=== PATIENT | male | born 1945 | race Caucasian/White ===

== ENCOUNTER 2022-10-09 09:27 | Outpatient (OUT) | payer MEDICARE, SELFPAY ==
[2022-10-09 10:17] LABS: Basophils Absolute Auto 0.1 10^3/uL (0.0-0.1); Basophils Percent Auto 0.8 % (0.2-2.0); Eosinophils Absolute Auto 0.3 10^3/uL (0.0-0.7); Eosinophils Percent Auto 3.5 % (0.9-7.0); Hematocrit 45.7 % (42.0-54.0); Hemoglobin 14.6 g/dL (14.0-18.0); Immature Granulocytes Abs Auto 0.03 10^3/uL (0.00-0.03); Immature Granulocytes Pct Auto 0.4 % (0.0-0.5); Lymphocytes Absolute Auto 1.5 10^3/uL (1.2-3.8); Lymphocytes Percent Auto 18.6 % (20.5-60.0); Mean Corpuscular HGB Conc 31.9 g/dL (29.9-35.2); Mean Corpuscular Volume 90.7 fL (80.0-94.0); Mean Platelet Volume 9.6 fL (9.5-13.5); Monocytes Absolute Auto 0.9 10^3/uL (0.3-0.8); Monocytes Percent Auto 11.6 % (1.7-12.0); Neutrophils Absolute Auto 5.1 10^3/uL (1.4-6.5); Neutrophils Percent Auto 65.1 % (43.0-75.0); Platelet Count 187 10^3/uL (150-450); Red Blood Count 5.04 10^6/uL (4.70-6.10); Red Cell Distribution Width 13.4 % (11.0-15.0); White Blood Count 7.8 10^3/uL (4.0-11.0)
[2022-10-09 10:41] LABS: Estimated Average Glucose 117 mg/dL; Glycohemoglobin A1C 5.7 % (4.5-6.2)
[2022-10-09 10:45] LABS: Alanine Aminotransferase 16 U/L (16-63); Albumin Globulin Ratio 0.7; Albumin Level 2.9 g/dL (3.4-5.0); Alkaline Phosphatase 99 U/L (46-116); Anion Gap 10.7; Aspartate Amino Transferase 14 U/L (15-37); BUN Creatinine Ratio 15.3; Bilirubin Total 0.5 mg/dL (0.2-1.0); Calcium 8.6 mg/dL (8.5-10.1); Carbon Dioxide 26.5 mmol/L (21.0-32.0); Chloride 104 mmol/L (98-107); Chol HDL Ratio 2.6; Cholesterol 101 mg/dL (<=200); Estimated GFR (African America >60 (>=60); Estimated GFR (Non-African Ame >60 (>=60); Free T3 2.16 pg/mL (2.18-3.98); Globulin 4.1 g/dL; Glucose 99 mg/dL (74-106); HDL Cholesterol 39 mg/dL (40-60); Potassium 4.2 mmol/L (3.5-5.1); Sodium 137 mmol/L (136-145); Thyroid Stimulating Hormone 1.943 uIU/mL (0.358-3.740); Triglycerides 127 mg/dL (<=150); Uric Acid 5.6 mg/dL (3.5-7.2); VLDL CHOLESTEROL 25.4 mg/dL
[2022-10-09 11:13] LABS: Prostate Specific Antigen Scrn 3.43 ng/mL (<=4.00)
== END 2022-10-09 09:28 | disposition home or self-care (01) ==
PROVIDERS: PCP Family Medicine; Visit Provider Family Medicine
DX: I25.10 Atherosclerotic heart disease of native coronary artery without angina pectoris (principal); E78.5 Hyperlipidemia, unspecified; I10 Essential (primary) hypertension; E11.9 Type 2 diabetes mellitus without complications; R73.09 Other abnormal glucose; Z12.12 Encounter for screening for malignant neoplasm of rectum; Z12.5 Encounter for screening for malignant neoplasm of prostate
CPT/HCPCS: 36415; 80053; 80061; 83036; 84436; 84443; 84481; 84550; 85025; G0103

== ENCOUNTER 2023-04-29 09:30 | Emergency (ER) | payer MEDICARE, SELFPAY ==
[2023-04-29 09:40] VITALS: BP 134/71; PULSE 74; RESP 18; TEMP 36.8; O2SAT 98; BMI 29.1
--- NOTE | 2023-04-29 09:50 | XR_ITS ---
The [address] [address] Patient Name: ANGELLA JOHNSON MRN: [id number] date: 1945 Sex: M Assigned Patient Location: ER Current Patient Location: ER Accession/Order Number: [id number] Exam Date: 04/29/2023 09:58 Report Date: 04/29/2023 11:38 At the request of: EDIS SINGH Procedure: XR hip RT 2V w/ pelvis PROCEDURE: XR hip RT 2V w/ pelvis HISTORY: right hip pain , acute; no known injury COMPARISON: XR hips bilateral 08/03/2018, CT abdomen pelvis 01/31/2021 FINDINGS: BONES:Bilateral hip replacements without evidence of hardware fracture or loosening. No bone fracture or dislocation. SOFT TISSUES:Exuberant bone formation within the soft tissues extending from left greater trochanter to near the superior aspect of the acetabulum. EFFUSION:None visible. OTHER: Negative. XR/XR hip RT 2V w/ pelvis IMPRESSION: 1. Bilateral hip replacements without evidence of hardware failure. 2. No appreciable acute abnormality. 3. 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 It is noted that the patient describes right hip pain. Electronically authenticated by: SIVAN MOTT Date: 04/29/2023 11:38
[2023-04-29 11:34] VITALS: BP 128/76; PULSE 78; RESP 18; O2SAT 98
--- NOTE | 2023-04-29 12:07 | ED_ITS ---
HPI - Extremity Problem General Chief complaint: Extremity Problem, Nontraumatic Stated complaint: R HIP PAIN Time Seen by Provider: 04/29/23 09:40 Source: patient Mode of arrival: walk-in Limitations: no limitations History of Present Illness HPI Narrative: The patient developed pain in the right hip 3 days ago. No associated injury or activity to elicit this pain. He previously had hip surgery at [facility] and when he contacted them about his pain he was told to come to the emergency department to get x-rays of the right hip. He localizes the pain to the posterior right hip into the posterior pelvis along the mid and lateral right buttock. He took tylenol for pain Related Data Previous Rx's ?Medication ?Instructions ?Recorded methylprednisolone 4 mg tablets in 4 mg PO DAILY #21 ea 04/29/23 a dose pack (Medrol (Arturo)) Allergies Allergy/AdvReac Type Severity Reaction Status Date / Time No Known Drug Allergies Allergy Verified 04/29/23 09:40 Exam Narrative Exam Narrative: Nurses notes and vital signs reviewed and patient is not hypoxic. Afebrile General: Well-appearing and in no apparent distress. Skin: Warm, dry, no pallor noted. No rash To the lower back or right buttock. Eye: Pupils are equal, round and EOMI. No scleral icterus. Ears, Nose, Mouth, and Throat: Oral mucosa is moist Cardiovascular: Regular Rate and Rhythm without murmur, gallop or rub. Respiratory: No accessory muscle use or respiratory distress. Lungs are clear to auscultation, no wheezing, rales or rhonchi Back: No midline thoracic or lumbar vertebral tenderness. No CVA tenderness. He has tenderness along the posterior bony pelvis and into the soft tissue of the mid right buttock laterally Musculoskeletal: normal ROM, no calf or popliteal tenderness, no lower extremity edema/swelling Neurological: A&O x4. No cranial nerve dysfunction observed. No truncal ataxia. Moves all extremities. Sensation intact. Psychiatric: Cooperative and interactive. Normal mood and affect. Constitutional Vital Signs, click to edit/add: Last Vital Signs Temp 98.2 F 04/29/23 09:40 Pulse 78 04/29/23 11:34 Resp 18 04/29/23 11:34 BP 128/76 04/29/23 11:34 Pulse Ox 98 04/29/23 11:34 O2 Del Method Room Air 04/29/23 09:40 Course Vital Signs Vital signs: Vital Signs Temperature 98.2 F 04/29/23 09:40 Pulse Rate 74 04/29/23 09:40 Respiratory Rate 18 04/29/23 09:40 Blood Pressure 134/71 04/29/23 09:40 Pulse Oximetry 98 04/29/23 09:40 Oxygen Delivery Method Room Air 04/29/23 09:40 Temperature 98.2 F 04/29/23 09:40 Pulse Rate 78 04/29/23 11:34 Respiratory Rate 18 04/29/23 11:34 Blood Pressure 128/76 04/29/23 11:34 Pulse Oximetry 98 04/29/23 11:34 Oxygen Delivery Method Room Air 04/29/23 09:40 MDM - Extremity (Nontraumatic) MDM Narrative Medical decision making narrative: Patient sent for x-rays of the right Hip and pelvis. No evidence of Hardware failure or appreciable acute bony abnormality. He was informed of results and discharged home with prescription for medrol dose arturo. He will continue to take Tylenol for pain. Imaging Data xr hip & pelvis: Radiologist's impression: ITS Impressions Hip/Pelvis X-Ray 04/29/23 09:50 IMPRESSION: 1. Bilateral hip replacements without evidence of hardware failure. 2. No appreciable acute abnormality. 3. 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 It is noted that the patient describes right hip pain. Electronically authenticated by: SIVAN MOTT Date: 04/29/2023 11:38 Discharge Plan Discharge Stand Alone Forms: Portal Instructions Chief Complaint: Extremity Problem, Nontraumatic Clinical Impression: Acute pain of right hip Patient Disposition: Home, Self-Care Time of Disposition Decision: 12:16 Prescriptions / Home Meds: New methylprednisolone [Medrol (Arturo)] 4 mg tablets,dose pack 4 mg PO DAILY Qty: 21 0RF Rx Instructions: follow dosing directions of the package Print Language: Macedonian Instructions: Hip Pain (ED) Referrals: Archie Lou MD [Primary Care Provider] - 1 week
[2023-04-29] MEDS: METHYLPREDNISOLONE SOD SUCC PF 125 MG/2 ML VIAL IM (12:25)
== END 2023-04-29 12:31 | disposition home or self-care (01) ==
PROVIDERS: Emergency Provider Emergency Medicine; PCP Family Medicine
DX: M25.551 Pain in right hip (principal)
CPT/HCPCS: 73502; 96372; 99284; J2930

== ENCOUNTER 2023-06-15 15:22 | Outpatient (OUT) | payer MEDICARE, SELFPAY ==
--- NOTE | 2023-06-15 15:36 | US_ITS ---
The [address] [address] Patient Name: ANGELLA JOHNSON MRN: [id number] date: 1945 Sex: M Assigned Patient Location: US Current Patient Location: Accession/Order Number: [id number] Exam Date: 06/15/2023 16:05 Report Date: 06/16/2023 07:09 At the request of: ACE ABBOTT Procedure: US venous doppler LE BI EXAMINATION: US venous doppler LE BI HISTORY: Edema R60.9 COMPARISON: No relevant comparison available. FINDINGS: REGION: Bilateral lower extremities THROMBI: None. COMPRESSIBILITY: Normal compressibility. FLOW: Normal waveform and antegrade flow between 5 and 20 cm/s. OTHER: Subcutaneous edema within calf soft tissues bilaterally. US/US venous doppler LE BI IMPRESSION: 1. No deep vein thrombus within the right or left lower extremity. Electronically authenticated by: SIVAN MOTT Date: 06/16/2023 07:09
== END 2023-06-15 15:23 | disposition home or self-care (01) ==
LOC: US 15:29
PROVIDERS: PCP Family Medicine; Visit Provider Family Medicine
DX: I87.2 Venous insufficiency (chronic) (peripheral) (principal); R06.02 Shortness of breath
CPT/HCPCS: 93970

== ENCOUNTER 2023-06-18 10:30 | Outpatient (OUT) | payer MEDICARE, SELFPAY ==
--- OUTSIDE RECORDS SUMMARY | 2023-06-18 10:33 | XMS_ITS | CCD ---
Author Organization [facility] Care Team Providers Care Sensitometrist Name Role Phone Ace Abbott Unavailable Unavailable Unavailable MD Ace Abbott Primary Care Provider DO Soham Cash Jr Attending Provider DO Soham Cash Jr Admit Provider MD Antonieta Combs Other Provider MD Parminder Arredondo Other Provider MD Horace Palafox Admit Provider MD Horace Palafox Attending Provider LIANG Castro Other Provider Unavailable LIANG Nguyen Other Provider Unavailable LIANG Quinn Other Provider Unavailable LIANG Joseph Other Provider Unavailable LIANG Payne Other Provider Unavailable LIANG Wign Other Provider Unavailable LIANG Jerez Other Provider Unavailable MD Mary Carmen Dickinson Other Provider MD Heriberto De Anda Other Provider CASIMIRO Horn Other Provider DO Chioma Portillo Other Provider MD Mario Loredo Other Provider DO Dereck Burns Other Provider MD Mikael Bush Other Provider MD Debo Argueta Other Provider MD Robbie Whitmore Other Provider Unavailable Pb, ANP-BC Jackelyn Other Provider MD Pramod Paulson Other Provider MD Chuck Tarango Other Provider MD Darren Woods Other Provider MD Clover Banerjee Other Provider DO Maycol Cristina Other Provider Unavailable MD Sha Clayton Other Provider MD Esme Turpin Other Provider MD Lexa Neal Other Provider MD Julio Shoemaker Other Provider [place] BILINGUAL TEACHER ASSISTANT-Lidia White Other Provider [phone] MD Thai Boyd Other Provider MD Serge Gonsalez Other Provider MD Aris Cantu Other Provider Unavailable MD Ayah Gaitan Other Provider Unavailable MD Markus Bailey Other Provider MD Dalton Whelan Other Provider DO Marjan Tyson Other Provider MD Rogers Kennedy Other Provider DO David Rizzo R Other Provider DO Luiz Slaughter M Other Provider CASIMIRO Marie Other Provider Sharri, RN Zunilda Other Provider Unavailable MD Ace Abbott Primary Care Provider DO Soham Cash Jr Attending Provider MD Delvin Rodriguez Attending Provider [phone] MD Ace Abbott Primary Care Provider DO Soham Cash Jr Attending Provider Ace Abbott Primary Care Physician MD Ace Abbott Primary Care Provider [phone] DO Soham Cash Jr Attending Provider DR ACE MCCORMACK Procedure Practitioner Unavail able HOY ., DR BELLO Consulting Unavailable HOY ., DR BELLO Attending Unavailable HOY ., DR BELLO Admitting Unavailable HOY ., DR BELLO Primary Care Unavailable MEAD ., DR MELÉNDEZ Consulting Unavailable GIDEON ., FARHANA Consulting Unavailable VELEZ, PACO Consulting Unavailable HOY ., DR BELLO Consulting Unavailable HOY ., DR BELLO Primary Care Unavailable HOY ., DR BELLO Attending Unavailable HOY ., DR BELLO Admitting Unavailable HOY ., DR BELLO Consulting Unavailable STEPANIC, DR CAPONE Primary Care Unavailable HOY ., DR BELLO Attending Unavailable HOY ., DR BELLO Admitting Unavailable HOY ., DR BELLO Consulting Unavailable STEPANIC, DR CAPONE Primary Care Unavailable HOY ., DR BELLO Attending Unavailable HOY ., DR BELLO Admitting Unavailable HOY ., DR BELLO Consulting Unavailable STEPANIC, DR CAPONE Primary Care Unavailable HOY ., DR BELLO Attending Unavailable HOY ., DR BELLO Admitting Unavailable HOY ., DR BELLO Consulting Unavailable STEPANIC, DR CAPONE Primary Care Unavailable HOY ., DR BELLO Attending Unavailable HOY ., DR BELLO Admitting Unavailable MISC, DR KRAUS Consulting Unavailable LISAANIC, DR CAPONE Primary Care Unavailable MISC, DR KRAUS Attending Unavailable MISC, DR KRAUS Admitting Unavailable HOY ., DR BELLO Consulting Unavailable STEPANIC, DR CAPONE Primary Care Unavailable HOY ., DR BELLO Attending Unavailable HOY ., DR BELLO Admitting Unavailable VALENCIA ., MR ANNA Consulting Unavailable HOY ., DR BELLO Primary Care Unavailable VALENCIA ., MR ANNA Attending Unavailable VALENCIA ., MR ANNA Admitting Unavailable ZIEBER, DR SIVAN Morton Consulting Unavailable HOY ., DR BELLO Primary Care Unavailable RODRIGUEZ, DR DELVIN Colon Attending Unavailable RODRIGUEZ, DR DELVIN Colon Admitting Unavailable RODRIGUEZ, DR DELVIN Colon Consulting Unavailable SCAR ., DR BELLO Consulting Unavailable HOY ., DR BELLO Primary Care Unavailable VALENCIA ., MR ANNA Attending Unavailable VALENCIA ., MR ANNA Admitting Unavailable MD Ace Abbott Primary Care Provider [phone] MD Horace Palafox Admit Provider MD Horace Palafox Attending Provider LIANG Castro Other Provider Unavailable LIANG Nguyen Other Provider Unavailable LIANG Quinn Other Provider Unavailable LIANG Joseph Other Provider Unavailable LIANG Payne Other Provider Unavailable LIANG Wing Other Provider Unavailable MD Mary Carmen Dickinson Other Provider MD Heriberto De Anda Other Provider CASIMIRO Horn Other Provider DO Chioma Portillo Other Provider MD Mario Loredo Other Provider DO Dereck Burns Other Provider [phone] MD Mikael Bush Other Provider MD Debo Argueta Other Provider Pb, ANP-BC Jackelyn Other Provider MD Pramod Paulson Other Provider [phone] MD Chuck Tarango Other Provider MD Darren Woods Other Provider MD Clover Banerjee Other Provider DO Maycol Cristina Other Provider [phone] MD Esme Turpin Other Provider MD Julio Shoemaker Other Provider MARIBELL Callaway-Lidia White Other Provider [phone] MD Thai Boyd Other Provider MD Serge Gonsalez Other Provider MD Markus Bailey Other Provider DO Marjan Tyson Other Provider Matthias, DO David R Other Provider DO Luiz Slaughter Other Provider CASIMIRO Marie Other Provider DO Constantino Salas Other Provider MD Anshu Jennings Other Provider CASIMIRO Lozada Other Provider [phone] LIANG Harrell Other Provider Unavailable DO Anna Navarro Emergency Provider MD Anshu Martinez Admit Provider MD Anshu Jennings Attending Provider DO Anna Navarro Emergency Provider MD Anshu Martinez Admit Provider MD Anshu Jennings Attending Provider MD Delvin Rodriguez Other Provider LIANG Morales Other Provider Unavailable DO Yasmine Ruelas Other Provider MD Rubén Graham Other Provider MD Parminder Arredondo Other Provider MD Pino Dunbar Other Provider MD Harsh Wren Other Provider CASIMIRO Tovar Other Provider MD Milana Kilgore Other Provider MD Nat Arce Other Provider MD Ranjeet Lozano Other Provider Romelia [facility] Villa Other Provider MD Erin Ordonez Other Provider MD Jigar Church Other Provider Soham Cash Jr Admitting Unavailable Soham Cash Jr Attending Unavailable Ace Abbott Primary Care Unavailable Delvin Rodriguez Consulting Unavailable Daromar, Obaydah M Attending Unavailable Daromar, Obaydah M Admitting Unavailable Ace Abbott M Primary Care Unavailable Brisa Morales Consulting Unavailable Yasmine Ruelas Consulting Unavailable Rubén Graham Consulting Unavailable Parminder Arredondo Consulting Unavail able Pino Dunbar Consulting Unavailable Harsh Wren Consulting Unavailab Yazmin Culver Consulting Unavailable Milana Kilgore Consulting Unavailable Nat Arce Consulting Unavailab Ranjeet Ricks Consulting Unavailable Sherley León Consulting Unavailable Erin Ordonez Consulting Unavailable Ranjit Imad Consulting Unavailable Horace Palafox Admitting Unavailable Horace Palafox Attending Unavailable Ace Abbott M Primary Care Unavailable Mariana Castro Consulting Unavailable Nona Nguyen Consulting Unavailable Elma Quinn Consulting Unavailable Sandra Joseph Consulting Unavailable Chanelle Payne Consulting Unavailable Ruthie Wing Consulting Unavailable Mary Carmen Dickinson Consulting Unavailable Heriberto De Anda Consulting Unavailable Philly Horn Consulting Unavailable Chioma Portillo Consulting Unavailable Mario Loredo Consulting Unavailable Dereck Burns Consulting UnavailMikael Richmond Consulting Unavailable Debo Argueta Consulting Unavailable Jackelyn Ambriz Consulting Unavailable Pramod Paulson Consulting Unavailable Chuck Tarango Consulting Unavailable Darren Woods Consulting Unavailable Clover Banerjee Consulting Unavailable Maycol Cristina Consulting Unavailable Esme Turpin Consulting Unavailable Julio Shoemaker Consulting Unavailable Farhana Callaway Consulting Unavailable Thai Boyd Consulting Unavailab Serge Hatfield Consulting Unavailable Markus Bailey Consulting Unavailable Marjan Tyson Consulting Unavailable David Rizzo Consulting Unavailable Luiz Slaughter Consulting Unavailable Marguerite Marie Consulting Unavailable Constantino Salas Consulting Unavailable Daromar, Obaydah M Consulting Unavailable Bethanie Lozada Consulting Unavailable Zunilda Harrell Consulting Unavailable Soham Cash Jr Attending Unavailable Soham Cash Jr Admitting Unavailable Ace Abbott M Primary Care Unavailable Soham Cash Jr Attending Unavailable Soham Cash Jr Admitting Unavailable Ace Abbott Primary Care Unavailable Ace Abbott Primary Care Unavailable Delvin Rodriguez Admitting Unavailable Delvin Rodriguez Attending Unavailable Soham Cash Jr Admitting Unavailable Soham Cash Jr Attending Unavailable Ace Abbott Primary Care Unavailable Trabjesi, Dr. Rodriguez Referring Unavaila ble Traboulericai, Dr. Rodriguez Attending Unavaila ble Horuth, Dr. Ace Severino Primary Care Unavail able Traboulssi, Dr. Rodriguez Attending Unavaila ble Hoy, Dr. Ace Severino Primary Care Unavail able Traboulssi, Dr. Rodriguez Attending Unavaila ble Hoy, Dr. Ace Severino Primary Care Unavail able Traboulssi, Dr. Rodriguez Attending Unavaila ble Traboulssi, Dr. Rodriguez Referring Unavaila ble Hoy, Dr. Ace Severino Primary Care Unavail able Traboulssi, Dr. Rodriguez Attending Unavaila ble Traboulssi, Dr. Rodriguez Referring Unavaila ble Hoy, Dr. Ace Severino Primary Care Unavail able Antoine MEAD Attending Unavailable Antoine MEAD Attending Unavailable Antonie MEAD Attending Unavailable Ace Abbott Referring Unavailable Ace Abbott MD Primary Care Provider [phone] Ace Abbott MD Primary Care Provider [phone] SABRA PRATT Attending Unavailable ACE ABBOTT Referring Unavailable ACE ABBOTT Primary Care Unavailable MARIELLE ABBEY Attending Unavailable MARIELLE, ABBEY Referring Unavailable MARIELLE, ABBEY Referring Unavailable MARIELLE ABBEY Attending Unavailable PINO DUNBAR Attending Unavailable ACE ABBOTT Primary Care Unavailable Allergies Allergy Classification Reported Allergen(s) Allergy Type Date of Onset Reaction(s) Facility (7 sources) Mirtazapine; Translations: [mirtazapine] Drug Allergy 06-06-19 serotonin syndrome [facility] (5 sources) Sulfonamides (Antibiotic); Translations: [Sulfa (Sulfonamide Antibiotics)] Allergy to substance 12-08-19 Rash [facility] (5 sources) Sulfamethoxazole / Trimethoprim; Translations: [sulfamethoxazole-tr imethoprim] Drug Allergy 12-31-19 Eruption of skin (disorder), Hives, Rash, Shortness of breath [facility] (1 source) Sulfamethoxazole / Trimethoprim Drug Allergy 10-07-19 [facility] (3 sources) Sulfamethoxazole / Trimethoprim; Translations: [SULFAMETHOXAZOLE-TR IMETHOPRIM] Drug Allergy 12-31-19 [facility] Medications Current Medications Medication Drug Class(es) Dates Sig (Normalized) Sig (Original) acetaminophen 500 mg oral tablet (20 sources) Start: 06-10-2021 End: 04-02-2022 take 500 mg by mouth every four hours Acetaminophen Active 500 MG PO Q4H 0 April 02, 2022 1:00am Start: 05-05-2021 End: 05-22-2021 take 2 tablets by mouth three times daily Acetaminophen (Tylenol Extra Strength) 500 mg Tablet Discontinued 1000 MG PO Three times daily May 05, 2021 12:00am May 22, 2021 3:30pm Start: 05-05-2021 End: 05-22-2021 take 1 tablet by mouth three times daily Acetaminophen (Tylenol Extra Strength) 500 mg Tablet Discontinued 500 MG PO Three times daily May 05, 2021 12:00am May 22, 2021 3:30pm Start: 05-05-2021 End: 05-22-2021 take 2 tablets by mouth three times daily Acetaminophen (Tylenol) 325 mg Tablet Discontinued 650 MG PO Three times daily May 05, 2021 12:00am May 22, 2021 3:30pm acetaminophen 325 mg / oxyCODONE hydrochloride 5 mg oral tablet (15 sources) Opioid Agonist Start: 02-19-2022 take 1 tablet by mouth every six hours Percocet 5 mg-325 mg oral tablet tab(s), Oral, q6hr, Refill(s) 0 Start Date: 02/19/22 Status: Ordered Start: 05-22-2021 End: 06-10-2021 take 1 tablet by mouth every six hours Oxycodone-Acetaminophen (Percocet) 5-325 mg tablet Discontinued 1 TAB PO Q6H 28 May 22, 2021 June 10, 2021 1:13pm apixaban 5 mg oral tablet (20 sources) Factor Xa Inhibitor Start: 05-27-2021 End: 05-25-2022 take 1 tablet by mouth in the morning, then take 1 tablet by mouth at bedtime apixaban (ELIQUIS) 5 mg tablet Take 1 tablet (5 mg total) by mouth in the morning and 1 tablet (5 mg total) before bedtime. 0 07/13/2021 Active aspirin 81 mg delayed release oral tablet (20 sources) Platelet Aggregation Inhibitor, Nonsteroidal Anti-inflammatory Drug Start: 08-24-2021 End: 04-02-2022 take 81 mg by mouth once daily Aspirin Active 81 MG PO Daily 0 April 02, 2022 1:00am Start: 06-19-2021 take 1 tablet by richelle th three times weekly Aspirin (Aspir-81) 81 mg Tablet,Delayed Release (Dr/Ec) Active 81 MG PO 3 Times a week August 24, 2021 11:13am Mon, Tue, Tue Start: 05-22-2021 End: 06-10-2021 take 1 tablet by mouth twice daily Aspirin (Children's Aspirin) 81 mg Tablet,Chewable Discontinued 81 MG PO Twice daily 0 May 22, 2021 3:33pm June 10, 2021 1:13pm Start: 07-24-2020 End: 05-22-2021 take 1 tablet by mouth once daily Aspirin (Children's Aspirin) 81 mg Tablet,Chewable Discontinued 81 MG PO Daily 0 July 24, 2020 12:00am May 22, 2021 3:33pm atorvastatin 40 mg oral tablet (20 sources) HMG-CoA Reductase Inhibitor Start: 12-07-2021 End: 04-02-2022 take 1 tablet by mouth in the morning atorvastatin (LIPITOR) 40 mg tablet Take 1 tablet (40 mg total) by mouth in the morning. 0 12/08/2021 Active Start: 07-24-2020 End: 05-05-2021 take 40 mg by mouth once daily in the evening Atorvastatin Discontinued 40 MG PO Every evening July 24, 2020 12:00am May 05, 2021 4:07pm calcium carbonate 500 mg chewable tablet (18 sources) Start: 04-02-2022 take 250 mg by mouth twice daily Calcium Carbonate Active 250 MG PO Twice daily 0 April 02, 2022 1:00am Start: 08-24-2021 End: 04-02-2022 take 1 tablet by mouth twice daily Calcium Carbonate (Tums) 200 mg calcium (500 mg) Tablet,Chewable Discontinued 200 MG PO Twice daily August 24, 2021 12:00am April 02, 2022 4:16pm Start: 07-13-2021 Tums mg, Chewe d, Daily, Refills(s) 0 Start Date: 07/13/21 Status: Ordered Start: 05-27-2021 End: 08-24-2021 take 500 mg by mouth twice daily at mealtime Calcium Carbonate Discontinued 500 MG PO Twice daily with meals May 27, 2021 12:00am August 24, 2021 11:20am Calcium Carbonat e CHEW Take 1 tablet twice daily Quantity: 0 Refills: 0 Ordered: 07-Jun-2022 DO Active cholecalciferol 0.025 mg oral tablet (20 sources) Vitamin D Start: 04-02-2022 take 50 ug by mouth once daily in the morning Cholecalciferol (Vitamin D3) Active 50 MCG PO Every morning 0 April 02, 2022 1:00am Start: 05-05-2021 End: 04-02-2022 take 1 tablet by mouth once daily in the morning Cholecalciferol (Vitamin D3) (Vitamin D3) 50 mcg (2,000 unit) Tablet Discontinued 50 MCG PO Every morning May 05, 2021 12:00am April 02, 2022 4:16pm Start: 07-20-2020 End: 05-05-2021 take 600 ug by mouth once daily Cholecalciferol (Vitamin D3) Discontinued 600 MCG PO Daily July 20, 2020 6:22pm May 05, 2021 4:08pm Start: 07-20-2020 End: 05-05-2021 take 600 ug by mouth once daily Cholecalciferol (Vitamin D3) Discontinued 600 MCG PO Daily July 19, 2020 11:00pm May 05, 2021 3:08pm Start: 07-20-2020 End: 05-05-2021 take 600 ug by mouth once daily Cholecalciferol (Vitamin D3) Discontinued 600 MCG PO Daily July 20, 2020 12:00am May 05, 2021 4:08pm take 1 capsule by mo uth in the morning cholecalciferol, vitamin D3, 2,000 units capsule Take 1 capsule (2,000 Units total) by mouth in the morning. 0 Active take 1 capsule by mo uth once daily cholecalciferol (Vitamin D-3) 50,000 unit capsule Take 1 capsule (50,000 Units) by mouth once daily. 0 Active take 1 capsule by [facility] once daily RA Vitamin D-3 50 MCG (1999) Oral Capsule TAKE 1 CAPSULE Daily Quantity: 0 Refills: 0 Ordered: 07-Jun-2022 DO Active Dextromethorphan (1 source) Uncompetitive Q-knftfy-F-aspartate Receptor Antagonist, Sigma-1 Agonist Start: 07-13-2021 take 1 mg by mouth every four hours dextromethorphan 10 mg/5 mL oral syrup mg mL, Oral, q4hr, Refills(s) 0 Start Date: 07/13/21 Status: Ordered ferrous sulfate 325 mg delayed release oral tablet (17 sources) Start: 07-13-2021 ferrous sulfate 325 (65 FE) mg EC tablet Take by mouth. 0 07/13/2021 Active Start: 06-10-2021 End: 04-02-2022 take 324 mg by mouth once daily Ferrous Sulfate Active 324 MG PO Daily 0 April 02, 2022 1:00am take 1 tablet by richelle three times daily ferrous sulfate 325 (65 Fe) MG tablet Take 1 tablet by mouth 3 times a day. 0 Active finasteride 5 mg oral tablet (20 sources) 5-alpha Reductase Inhibitor Start: 05-05-2021 End: 04-02-2022 take 1 tablet by mouth in the morning finasteride (PROSCAR) 5 mg tablet Take 1 tablet (5 mg total) by mouth in the morning. 0 07/13/2021 Active hyoscyamine sulfate 0.125 mg disintegrating oral tablet (13 sources) Start: 04-02-2022 take 1 tablet by mouth four times daily Hyoscyamine Sulfate (Anaspaz) 0.125 mg Tablet,Disintegra ting Active 0.125 MG PO Four times daily 0 April 02, 2022 1:00am Start: 05-05-2021 End: 04-02-2022 take 1 tablet by mouth four times daily Hyoscyamine Sulfate (Levsin) 0.125 mg Tablet Discontinued 0.125 MG PO Four times daily May 05, 2021 12:00am April 02, 2022 4:16pm take 1 tablet by richelle three to four times daily as needed Levsin 0.125 MG Oral Tablet TAKE 1 TABLET 3-4 TIMES DAILY NEEDED. Quantity: 0 Refills: 0 Ordered: 16-Jun-2021 DO Active L.Acidop,Carlos,Lac,Rha-B.Lac,L on (Advanced Probiotic) 625 mg (10 billion cell) Capsule (9 sources) Start: 05-05-2021 take 1 capsule by mouth once daily in the morning L.Acidop,Carlos,Lac,Rha-B.Lac,Jas (Advanced Probiotic) 625 mg (10 billion cell) Capsule Active 1 CAP PO Every morning May 05, 2021 4:10pm Start: 05-05-2021 take 1 capsule by mouth once daily L.Acidop,Carlos,Lac,Rha-B.Lac,Jas (Advanced Probiotic) 625 mg (10 billion cell) Capsule Active 1 CAP PO Daily May 05, 2021 4:10pm Start: 05-05-2021 End: 04-02-2022 take 1 capsule by mouth once daily in the morning L.Acidop,Carlos,Lac,Rha-B.Lac,Jas (Advanced Probiotic) 625 mg (10 billion cell) Capsule Discontinued 1 CAP PO Every morning May 05, 2021 12:00am April 02, 2022 4:16pm Start: 05-05-2021 take 1 capsule by mouth once daily in the morning L.Acidop,Carlos,Lac,Rha-B.Lac,Jas (Advanced Probiotic) 625 mg (10 billion cell) Capsule Active 1 CAP PO Every morning May 04, 2021 11:00pm Start: 05-05-2021 take 1 capsule by mouth once daily in the morning L.Acidop,Carlos,Lac,Rha-B.Lac,Jas (Advanced Probiotic) 625 mg (10 billion cell) Capsule Active 1 CAP PO Every morning May 05, 2021 12:00am Lactobacillus Combination No.4 (Probiotic) 3 billion cell Capsule (2 sources) Start: 05-25-2022 Lactobacillus Combination No.4 (Probiotic) 3 billion cell Capsule Active May 25, 2022 12:00am magnesium oxide 400 mg oral tablet (4 sources) Start: 06-10-2022 take 1 tablet by mouth in the morning, then take 1 tablet by mouth at bedtime magnesium oxide (MAGOX) 400 mg tablet Take 1 tablet (400 mg total) by mouth in the morning and 1 tablet (400 mg total) before bedtime. 0 06/10/2022 Active midodrine hydrochloride 5 mg oral tablet (20 sources) alpha-Adrenerg ic Agonist Start: 05-25-2022 take 5 mg by mouth once Midodrine Active 5 MG PO 3x/Day at 7a,12p,5p May 25, 2022 7:30am Start: 07-13-2021 take 1 mg by mouth t hree times daily midodrine 10 mg oral tablet mg tab(s), Oral, TID, Refills(s) 0 Start Date: 07/13/21 Status: Ordered Start: 05-27-2021 End: 05-25-2022 take 10 mg by mouth once Midodrine Discontinued 10 MG PO 3x/Day at 7a,12p,5p 0 April 02, 2022 1:00am May 25, 2022 7:30am End: 02-16-2023 take 0.5 tablet by mouth three times daily midodrine (Proamatine) 10 mg tablet Take 0.5 tablets (5 mg) by mouth 3 times a day. 0 02/16/2023 Discontinued (Other) take 1 tablet by richelle th three times daily as needed Midodrine HCl - 5 MG Oral Tablet TAKE 1 TABLET 3 TIMES DAILY as needed for low blood pressure Quantity: 270 Refills: 1 Ordered: 07-Jun-2022 DO Active take 1 tablet by richelle th three times daily Midodrine HCl - 10 MG Oral Tablet TAKE 1 TABLET 3 TIMES DAILY. Quantity: 0 Refills: 0 Ordered: 19-Jun-2021 DO Active 24 hr mirabegron 50 mg extended release oral tablet (3 sources) beta3-Adrenergic Agonist Start: 03-31-2023 take 1 tablet by mouth every twenty-four hours in the morning MYRBETRIQ 50 mg tablet extended release 24 hr TAKE 1 TABLET BY MOUTH IN THE MORNING 30 tablet 5 03/31/2023 Active take 1 tablet by mouth once mary y mirabegron (Myrbetriq) 50 mg tablet extended release 24 hr 24 hr tablet Take 1 tablet (50 mg) by mouth once daily. 0 Active Multi Vitamin+ (1 source) Start: 07-13-2021 Multi Vitamin+ Refill(s) 0 Start Date: 07/13/21 Status: Ordered Multivitamin preparation (14 sources) Start: 08-24-2021 take 1 tablet by mouth once daily Multivitamin Active 1 TAB PO Daily August 24, 2021 11:13am Start: 08-24-2021 End: 04-02-2022 take 1 tablet by mouth once daily Multivitamin Discontinued 1 TAB PO Daily August 24, 2021 12:00am April 02, 2022 4:16pm w/folic acid 0.4 mg Start: 08-24-2021 take 1 tablet by richelle th once daily Multivitamin Active 1 TAB PO Daily August 23, 2021 11:00pm w/folic acid 0.4 mg Start: 08-24-2021 take 1 tablet by richelle th once daily Multivitamin Active 1 TAB PO Daily August 24, 2021 12:00am w/folic acid 0.4 mg Start: 07-20-2020 End: 05-05-2021 take 1 tablet by mouth once daily Multivitamin Discontinued 1 TAB PO Daily July 20, 2020 6:22pm May 05, 2021 4:09pm Start: 07-20-2020 End: 05-05-2021 take 1 tablet by mouth once daily Multivitamin Discontinued 1 TAB PO Daily July 19, 2020 11:00pm May 05, 2021 3:09pm Start: 07-20-2020 End: 05-05-2021 take 1 tablet by mouth once daily Multivitamin Discontinued 1 TAB PO Daily July 20, 2020 12:00am May 05, 2021 4:09pm Nutritional Supplements (Juv en) Powder (5 sources) Start: 08-24-2021 Nutritional Boyle pplements (Nik) Powder Active 1.5 EACH PO Twice daily August 24, 2021 11:13am Start: 08-24-2021 End: 04-02-2022 Nutritional Supplements (Juv en) Powder Discontinued 1.5 EACH PO Twice daily August 24, 2021 12:00am April 02, 2022 4:16pm Start: 08-24-2021 Nutritional Boyle pplements (Nik) Powder Active 1.5 EACH PO Twice daily August 23, 2021 11:00pm Start: 08-24-2021 Nutritional Boyle pplements (Nik) Powder Active 1.5 EACH PO Twice daily August 24, 2021 12:00am pantoprazole 40 mg delayed release oral tablet (11 sources) Proton Pump Inhibitor Start: 04-29-2022 pantoprazole (PROTONIX) 40 mg EC tablet Start: 04-02-2022 End: 05-25-2022 take 40 mg by mouth twice daily Pantoprazole Discontinued 40 MG PO Twice daily 0 April 02, 2022 1:00am May 25, 2022 7:30am Senna Leaves (1 source) Start: 07-13-2021 Senna Lax Oral , Once a day (at bedtime), Refills(s) 0 Start Date: 07/13/21 Status: Ordered Sennosides (Senna Lax) 8.6 mg Tablet (8 sources) Start: 04-02-2022 take 2 tablets by mouth once daily Sennosides (Senna Lax) 8.6 mg Tablet Active 2 TAB PO DAILY@April 02, 2022 1:00am Start: 06-10-2021 take 2 tablets by mo uth once daily Sennosides (Senna Lax) 8.6 mg Tablet Active 2 TAB PO DAILY@June 10, 2021 1:06pm Start: 06-10-2021 End: 12-07-2021 take 2 tablets by mouth once daily Sennosides (Senna Lax) 8.6 mg Tablet Discontinued 2 TAB PO DAILY@June 09, 2021 11:00pm December 07, 2021 12:56pm Start: 06-10-2021 End: 12-07-2021 take 2 tablets by mouth once daily Sennosides (Senna Lax) 8.6 mg Tablet Discontinued 2 TAB PO DAILY@June 10, 2021 12:00am December 07, 2021 1:56pm simvastatin 40 mg oral tablet (11 sources) HMG-CoA Reductase Inhibitor Start: 12-08-2017 End: 07-24-2020 take 1 tablet by mouth once daily simvastatin (ZOCOR) 40 mg tablet Take 40 mg by mouth daily. 3 12/08/2017 Active sotalol hydrochloride 80 mg oral tablet (20 sources) Antiarrhythmic Start: 11-29-2022 take 0.5 mg by mouth every twelve hours sotalol (Betapace) 80 mg tablet Indications: Persistent atrial fibrillation (CMS/HCC) Take 0.5 mg by mouth every 12 hours. 90 tablet 3 11/29/2022 Active Start: 06-08-2022 take 0.5 tablet by m outh twice daily sotaloL (BETAPACE) 80 mg tablet TAKE 1/2 (ONE-HALF) OF A TABLET BY MOUTH TWICE DAILY 0 06/08/2022 Active Start: 06-08-2022 take 0.5 tablet by m outh twice daily Sotalol HCl (AF) 80 MG Oral Tablet TAKE 0.5 TABLET Twice daily Quantity: 90 Refills: 1 Ordered: 08-Jun-2022 Pino Dunbar MD Start : 08-Jun-2022 Active dose decreased Start: 05-29-2022 Sotalol (Sotal ol Af) 120 mg Tablet Active 60 MG PO Twice daily 60 May 29, 2022 12:00am Start: 05-25-2022 End: 05-29-2022 take 1 tablet by mouth twice daily Sotalol (Sotalol Af) 120 mg tablet Discontinued 120 MG PO Twice daily May 25, 2022 7:30am May 29, 2022 5:36pm Start: 07-13-2021 take 1 mg by mouth twice daily sotalol 120 mg Tab mg tab(s), Oral, BID, Refills(s) 0 Start Date: 07/13/21 Status: Ordered Start: 05-27-2021 End: 05-25-2022 Sotalol (Sotalol Af) 120 mg Tablet Discontinued 60 MG PO Twice daily 0 April 02, 2022 1:00am May 25, 2022 7:30am take 1 tablet by richelle twice daily Sotalol HCl (AF) 120 MG Oral Tablet take 1/2 tablet by mouth twice daily Quantity: 90 Refills: 1 Ordered: 07-Jun-2022 DO Active take 1 tablet by richelle th once daily Sotalol HCl (AF) 120 MG Oral Tablet TAKE 1 TABLET EVERY 12 HOURS DAILY. Quantity: 0 Refills: 0 Ordered: 16-Jun-2021 DO Active tamsulosin hydrochloride 0.4 mg oral capsule (20 sources) alpha-Adrenergic Alla Start: 07-19-2022 take 1 capsule by mouth in the morning tamsulosin (FLOMAX) 0.4 mg capsule Take 1 capsule (0.4 mg total) by mouth in the morning. 0 07/19/2022 Active Start: 11-19-2020 End: 04-02-2022 take 1 capsule by mouth once daily tamsulosin (Flomax) 0.4 mg 24 hr capsule Take 1 capsule (0.4 mg) by mouth once daily. 0 11/19/2020 Active Completed/Discontinued Medications Medication Drug Class(es) Dates Sig (Normalized) Sig (Original) aluminum hydroxide 40 mg/ml / magnesium hydroxide 40 mg/ml / simethicone 4 mg/ml oral suspension (4 sources) Start: 12-07-2021 End: 04-02-2022 Alum-Mag Hydroxide-Simeth (Maalox Advanced) 200-200-20 mg/5 mL Suspension Discontinued 5 ML PO 6 times per day December 07, 2021 12:00am April 02, 2022 4:16pm Jmaoahff-Djwqhnhgk-M alcium Hmb (Nik) 7-7-1.5 gram Powder In Packet (4 sources) Start: 12-07-2021 End: 04-02-2022 Ibhquqba-Vexffieos-S alcium Hmb (Nik) 7-7-1.5 gram Powder In Packet Discontinued 1 EACH PO Twice daily December 07, 2021 12:00am April 02, 2022 4:16pm Start: 12-07-2021 Arginine-Gluta mine-Calcium Hmb (Nik) 7-7-1.5 gram Powder In Packet Active 1 EACH PO Twice daily December 06, 2021 11:00pm Start: 12-07-2021 Arginine-Gluta mine-Calcium Hmb (Nik) 7-7-1.5 gram Powder In Packet Active 1 EACH PO Twice daily December 07, 2021 12:00am ascorbic acid 500 mg oral tablet (20 sources) Vitamin C Start: 03-22-2022 End: 05-25-2022 take 1 tablet by mouth once daily Ascorbic Acid (Vitamin C) (Vitamin C) 500 mg Tablet Discontinued 500 MG PO Daily 0 April 02, 2022 1:00am May 25, 2022 7:30am Start: 05-27-2021 End: 03-22-2022 take 1 tablet by mouth twice daily at mealtime Ascorbic Acid (Vitamin C) (Vitamin C) 500 mg Tablet Discontinued 500 MG PO Twice daily with meals May 27, 2021 12:00am March 22, 2022 7:36pm ascorbic acid, v itamin C, 500 mg tablet,chewable every 12 (twelve) hours. 0 Active ascorbic acid (V itamin C) 500 mg chewable tablet Chew 2 tablets (1,000 mg) once daily. 0 Active take 1 tablet by richelle th once daily Ascorbic Acid 500 MG Oral Tablet TAKE 1 TABLET DAILY. Quantity: 0 Refills: 0 Ordered: 07-Jun-2022 DO Active bifidobacterium animalis [id number] unt / lactobacillus acidophilus [id number] unt oral capsule (1 source) Probiotic CAPS U SE DIRECTED. Quantity: 0 Refills: 0 Ordered: 16-Jun-2021 DO Active carvedilol 3.125 mg oral tablet (18 sources) alpha-Adrenergic Alla, beta-Adrenergic Alla Start: 3 End: take 3.125 mg by mouth once daily Carvedilol Discontinued 3.125 MG PO Daily May 25, 2022 7:30am May 29, 2022 5:36pm Start: 04-02-2022 End: 05-25-2022 take 3.125 mg by mouth twice daily Carvedilol Discontinued 3.125 MG PO Twice daily 0 April 02, 2022 1:00am May 25, 2022 7:30am Start: 12-07-2021 End: 04-02-2022 Carvedilol Discontinued 3.12 5 MG PO Twice daily December 07, 2021 12:00am April 02, 2022 4:16pm hold for HR less than 60 Start: 12-07-2021 take 3.125 mg by richelle twice daily Carvedilol Active 3.125 MG PO Twice daily December 06, 2021 11:00pm Start: 07-24-2020 End: 05-05-2021 take 1 tablet by mouth twice daily at mealtime Carvedilol (Coreg) 3.125 mg tablet Discontinued 3.125 MG PO Twice daily 60 30 July 24, 2020 12:00am May 05, 2021 4:08pm must administer with a meal/food cefdinir 300 mg oral capsule (3 sources) Cephalosporin Antibacterial Start: 05-25-2022 End: 05-29-2022 take 300 mg by mouth once daily Cefdinir Discontinued 300 MG PO Daily May 25, 2022 12:00am May 29, 2022 5:36pm Start: 05-25-2022 take 300 mg by mouth twice bimal ly Cefdinir Active 300 MG PO Twice daily May 25, 2022 12:00am Start: 02-19-2022 cefdinir 300 m g Cap Refills(s) 0 Start Date: 02/19/22 Status: Ordered cetirizine hydrochloride 5 mg oral tablet (4 sources) Histamine-1 Receptor Antagonist Start: 12-07-2021 End: 04-02-2022 take 5 mg by mouth once daily Cetirizine Discontinued 5 MG PO Daily December 07, 2021 12:00am April 02, 2022 4:16pm dextromethorphan hydrobromide 2 mg/ml / guaiFENesin 20 mg/ml oral solution (11 sources) Uncompetitive R-vbuolw-Y-aspartat e Receptor Antagonist, Sigma-1 Agonist Start: 05-05-2021 End: 05-25-2022 take 1 mL by mouth four times daily Dextromethorphan- Guaifenesin Discontinued 10 ML PO Four times daily 0 April 02, 2022 1:00am May 25, 2022 7:28am diclofenac sodium 75 mg delayed release oral tablet (9 sources) Nonsteroidal Anti-inflammatory Drug Start: 07-20-2020 End: 07-24-2020 take 75 mg by mouth twice daily Diclofenac Sodium Discontinued 75 MG PO Twice daily July 20, 2020 12:00am July 24, 2020 11:20am digoxin 0.125 mg oral tablet (17 sources) Cardiac Glycoside Start: 07-13-2021 take 1 tablet by mouth once daily Digox 125 mcg (0.125 mg) oral tablet mcg tab(s), Oral, Daily, Refills(s) 0 Start Date: 07/13/21 Status: Ordered Start: 05-27-2021 End: 05-29-2022 take 125 ug by mouth once daily in the morning Digoxin Discontinued 125 MCG PO Every morning 0 April 02, 2022 1:00am May 29, 2022 5:36pm docusate sodium 100 mg oral capsule (6 sources) Start: 08-24-2021 End: 04-02-2022 take 100 mg by mouth once daily Docusate Sodium Discontinued 100 MG PO Daily August 24, 2021 12:00am April 02, 2022 4:16pm Start: 07-13-2021 Colace Oral, B ID, Refills(s) 0 Start Date: 07/13/21 Status: Ordered gabapentin 300 mg oral capsule (14 sources) Anti-epileptic Agent Start: 05-05-2021 End: 05-25-2022 take 300 mg by mouth twice daily Gabapentin Discontinued 300 MG PO Twice daily 0 April 02, 2022 1:00am May 25, 2022 7:28am Gabapentin 300 M G TABS TAKE 1 TABLET TWICE DAILY. Quantity: 0 Refills: 0 Ordered: 18-Feb-2021 DO Active Glucosamine (9 sources) Start: 07-20-2020 End: 05-05-2021 take 1 tablet by mouth once daily Glucosamine 7rzp-Rrr-Oupvypebk Discontinued 1 TAB PO Daily July 20, 2020 6:22pm May 05, 2021 4:09pm Start: 07-20-2020 End: 05-05-2021 take 1 tablet by mouth once daily Glucosamine 5imh-Qci-Uovejqdza Discontinued 1 TAB PO Daily July 19, 2020 11:00pm May 05, 2021 3:09pm Start: 07-20-2020 End: 05-05-2021 take 1 tablet by mouth once daily Glucosamine 6jbd-Kfo-Oirafvsaa Discontinued 1 TAB PO Daily July 20, 2020 12:00am May 05, 2021 4:09pm Glucosamine Chond Cmp Advanced TABS (1 source) Glucosamine Flaco d Cmp Advanced TABS TAKE 1 TABLET DAILY DIRECTED. Quantity: 0 Refills: 0 Ordered: 18-Feb-2021 DO Active lactulose 667 mg/ml oral solution (6 sources) Osmotic Laxative Start: 08-24-2021 End: 04-02-2022 take 1 mL by mouth once daily Lactulose (Enulose) 10 gram/15 mL solution Discontinued 30 ML PO Daily August 24, 2021 12:00am April 02, 2022 4:16pm Start: 07-13-2021 take 1 g by mouth once daily l actulose 20 g Oral Pwdr gm EA, Oral, Daily, Refills(s) 0 Start Date: 07/13/21 Status: Ordered levETIRAcetam 500 mg oral tablet (14 sources) Start: 07-13-2021 take 1 mg by mouth twice daily levETIRAcetam 500 mg oral tablet, dispersible mg tab(s), Oral, BID, Refills(s) 0 Start Date: 07/13/21 Status: Ordered Start: 05-05-2021 End: 05-25-2022 take 500 mg by mouth twice daily Levetiracetam Discontinued 500 MG PO Twice daily 0 April 02, 2022 1:00am May 25, 2022 7:29am levoFLOXacin 750 mg oral tablet (7 sources) Quinolone Antimicrobial Start: 06-10-2021 End: 06-16-2021 take 750 mg by mouth once daily Levofloxacin Discontinued 750 MG PO Daily 0 June 10, 2021 12:00am June 16, 2021 11:12am Levaquin 500 MG TABS TAKE 1 TABLET DAILY UNTIL FINISHED. Quantity: 0 Refills: 0 Ordered: 16-Jun-2021 DO Active loratadine 10 mg oral tablet (2 sources) Start: 04-02-2022 End: 05-25-2022 take 5 mg by mouth once daily Loratadine Discontinued 5 MG PO Daily 0 April 02, 2022 1:00am May 25, 2022 7:29am melatonin 5 mg oral tablet (2 sources) Start: 04-02-2022 End: 05-25-2022 take 5 mg by mouth once daily at bedtime Melatonin Discontinued 5 MG PO Daily at bedtime 0 April 02, 2022 1:00am May 25, 2022 7:29am mirtazapine 30 mg oral tablet (17 sources) Start: 12-07-2021 End: 05-25-2022 take 30 mg by mouth once daily at bedtime Mirtazapine Discontinued 30 MG PO Daily at bedtime 0 April 02, 2022 1:00am May 25, 2022 7:29am Start: 05-05-2021 End: 06-05-2021 take 1 tablet by mouth once daily at bedtime Mirtazapine (Remeron) 30 mg Tablet Discontinued 30 MG PO Daily at bedtime May 05, 2021 12:00am June 05, 2021 4:03pm take 1 tablet by richelle th at bedtime Mirtazapine 30 MG Oral Tablet TAKE 1 TABLET AT BEDTIME. Quantity: 0 Refills: 0 Ordered: 18-Feb-2021 DO Active Multi Vitamin Oral Tablet (1 source) take 1 tablet by mouth once daily Multi Vitamin Oral Tablet TAKE 1 TABLET DAILY. Quantity: 0 Refills: 0 Ordered: 18-Feb-2021 DO Active nitroglycerin 0.4 mg sublingual tablet (16 sources) Nitrate Vasodilator Start: 07-25-19 End: 02-16-19 Nitroglycerin Discontinued 0.4 MG SUBLINGUAL Q5M 25 July 24, 2020 12:00am May 05, 2021 4:10pm nystatin 100 unt/mg topical powder (12 sources) Polyene Antifungal Start: 07-14-19 take 1 mL by mouth every six hours nystatin 100,000 units/mL Oral Susp 100,000 unit(s) = 1 mL, Oral, q6hr, For an infant give as one milliliter to each side of mouth, Refills(s) 0 Start Date: 07/13/21 Status: Ordered Start: 05-05-2021 Nystatin Activ e 1 APPLIC TOPICAL Daily May 05, 2021 4:10pm Start: 05-05-2021 End: 05-25-2022 Nystatin (Nystop) 100,000 un it/gram Powder Discontinued 1 APPLIC TOPICAL Twice daily 0 April 02, 2022 1:00am May 25, 2022 7:29am Heron 3 CAPS (1 source) Heron 3 CAPS ADAMARIS E DIRECTED. Quantity: 0 Refills: 0 Ordered: 18-Feb-2021 DO Active Heron 8-Qpb-Muz-Fish Oil (Fish Oil) 1,200 (144-216) mg Capsule (9 sources) Start: 07-20-2020 End: 05-05-2021 take 1 capsule by mouth once daily Heron 5-Oyf-Wvb-Fish Oil (Fish Oil) 1,200 (144-216) mg Capsule Discontinued 1 CAP PO Daily July 20, 2020 6:22pm May 05, 2021 4:10pm Start: 07-20-2020 End: 05-05-2021 take 1 capsule by mouth once daily Heron 9-Hax-Lgf-Fish Oil (Fish Oil) 1,200 (144-216) mg Capsule Discontinued 1 CAP PO Daily July 19, 2020 11:00pm May 05, 2021 3:10pm Start: 07-20-2020 End: 05-05-2021 take 1 capsule by mouth once daily Heron 1-Cmn-Spq-Fish Oil (Fish Oil) 1,200 (144-216) mg Capsule Discontinued 1 CAP PO Daily July 20, 2020 12:00am May 05, 2021 4:10pm omeprazole 40 mg delayed release oral capsule (12 sources) Proton Pump Inhibitor Start: 05-05-2021 End: 04-02-2022 take 40 mg by mouth once daily in the morning Omeprazole Discontinued 40 MG PO Every morning May 05, 2021 12:00am April 02, 2022 4:16pm 24 hr oxybutynin chloride 5 mg extended release oral tablet (17 sources) Cholinergic Muscarinic Antagonist Start: 04-02-2022 End: 05-25-2022 take 10 mg by mouth once daily Oxybutynin Chloride Discontinued 10 MG PO Daily at 1700 0 April 02, 2022 1:00am May 25, 2022 3:15pm on hold Start: 12-07-2021 End: 04-02-2022 take 10 mg by mouth once daily Oxybutynin Chloride Dis continued 10 MG PO Daily at 1700 December 07, 2021 12:00am April 02, 2022 4:16pm Start: 05-05-2021 End: 06-10-2021 take 5 mg by mouth once daily in the morning Oxybutynin Chloride Discontinued 5 MG PO Every morning May 05, 2021 12:00am June 10, 2021 1:13pm take 1 tablet by richelle th once daily at bedtime Oxybutynin Chloride 5 MG Oral Tablet take one daily hs Quantity: 0 Refills: 0 Ordered: 18-Feb-2021 DO Active oxyCODONE hydrochloride 5 mg oral tablet (20 sources) Opioid Agonist Start: 12-07-2021 End: 05-25-2022 take 5 mg by mouth every six hours Oxycodone Discontinued 5 MG PO Q6H 14 7 April 02, 2022 May 25, 2022 7:29am Start: 12-07-2021 take 2.5 mg by mouth every six hours Oxycodone Active 2.5 MG PO Q6H December 07, 2021 12:54pm Start: 05-27-2021 End: 12-07-2021 take 5 mg by mouth every four hours Oxycodone Discontinued 5 MG PO Every 4 hours 30 5 June 10, 2021 December 07, 2021 1:56pm Start: 05-05-2021 End: 05-22-2021 take 5 mg by mouth three times daily Oxycodone Discontinued 5 MG PO Three times daily May 05, 2021 12:00am May 22, 2021 3:30pm saccharomyces boulardii 250 mg oral capsule (2 sources) Start: 04-02-2022 End: 05-25-2022 take 250 mg by mouth twice daily Saccharomyces Boulardii Discontinued 250 MG PO Twice daily 0 April 02, 2022 1:00am May 25, 2022 7:29am Sennosides (Senna Lax) 8.6 mg tablet (4 sources) Start: 12-07-2021 End: 04-02-2022 take 2 tablets by mouth once daily Sennosides (Senna Lax) 8.6 mg tablet Discontinued 2 TAB PO DAILY@December 07, 2021 1:54pm April 02, 2022 4:16pm Start: 12-07-2021 take 2 tablets by mo uth once daily Sennosides (Senna Lax) 8.6 mg tablet Active 2 TAB PO DAILY@December 07, 2021 12:54pm Start: 12-07-2021 take 2 tablets by mo uth once daily Sennosides (Senna Lax) 8.6 mg tablet Active 2 TAB PO DAILY@December 07, 2021 1:54pm sennosides, correction 8.6 mg oral tablet (1 source) Senna 8.6 MG Ora l Tablet TAKE DIRECTED. Quantity: 0 Refills: 0 Ordered: 16-Jun-2021 DO Active ticagrelor 90 mg oral tablet (20 sources) Start: 07-25-19 End: 06-11-19 take 90 mg by mouth twice daily Ticagrelor Discontinued 90 MG PO Twice daily May 22, 2021 12:00am June 10, 2021 1:13pm traMADol hydrochloride 50 mg oral tablet (1 source) Opioid Agonist take 1 tablet by mouth three times daily as needed traMADol HCl - 50 MG Oral Tablet TAKE 1 TABLET 3 TIMES DAILY NEEDED. Quantity: 0 Refills: 0 Ordered: 18-Feb-2021 DO Active vancomycin 125 mg oral capsule (2 sources) Glycopeptide Antibacterial Start: 04-02-19 End: 05-26-19 23 take 125 mg by mouth four times daily Vancomycin Discontinued 125 MG PO Four times daily 03 09April 02, 2022 1:00am May 25, 2022 7:29am Vitamin D3 CAPS (2 sources) Vitamin D3 CAPS TAKE 1 CAPSULE Daily Quantity: 0 Refills: 0 Ordered: 18-Feb-2021 DO Active zinc sulfate 220 mg oral capsule (7 sources) Start: 06-11-19 End: 08-25-19 Zinc Sulfate (Orazinc) 50 mg zinc (220 mg) Capsule Discontinued 220 MG PO Daily June 10, 2021 12:00am August 24, 2021 11:20am Zinc Sulfate 140 (50 Zn) MG Oral Tablet USE DIRECTED Quantity: 0 Refills: 0 Ordered: 16-Jun-2021 DO Active Problems Active Problems Problem Classification Problem Date Documented Date Episodic/Chronic Abdominal hernia (3 sources) Hiatal hernia; Translations: [Diaphragmatic hernia without obstruction or gangrene] Onset: 05-26-2022 05-26-2022 Episodic Abdominal pain (6 sources) Epigastric pain; Translations: [Epigastric pain] Onset: 05-26-2022 05-25-2022 Episodic Acute myocardial infarction (15 sources) Myocardial infarction; Translations: [Non-ST elevation (NSTEMI) myocardial infarction] Onset: 03-22-2022 07-20-2020 Chronic Administrative/social admission (16 sources) Other reduced mobility; Translations: [Impaired mobility and activities of daily living] Onset: 03-22-2022 05-28-2021 Episodic Bacterial infection; unspecified site (6 sources) Clostridioides difficile infection; Translations: [Other bacterial infections of unspecified site] Onset: 03-22-2022 03-31-2022 Episodic Biliary tract disease (4 sources) Biliary calculus; Translations: [Calculus of gallbladder without cholecystitis without obstruction] Onset: 05-26-2022 05-25-2022 Episodic Cardiac dysrhythmias (20 sources) Persistent atrial fibrillation; Translations: [Other persistent atrial fibrillation] Onset: 03-22-2022 05-25-2021 Chronic Cardiac dysrhythmias (6 sources) Bradycardia; Translations: [Bradycardia, unspecified] Onset: 05-26-2022 05-25-2022 Episodic Chronic ulcer of skin (20 sources) Pressure ulcer of coccygeal region; Translations: [Pressure ulcer of sacral region, stage 2] Onset: 07-10-2021 05-29-2021 Chronic Conduction disorders (2 sources) First degree atrioventricular block; Translations: [Atrioventricular block, first degree] 05-25-2022 Chronic Coronary atherosclerosis and other heart disease (20 sources) Coronary arteriosclerosis; Translations: [Coronary atherosclerosis of unspecified type of vessel, [place] or graft] Onset: 08-04-2021 05-23-2021 Chronic Disorders of lipid metabolism (20 sources) Hyperlipidemia; Translations: [Other and unspecified hyperlipidemia] Onset: 10-26-2021 07-21-2020 Chronic Hyperplasia of prostate (15 sources) Benign prostatic hyperplasia; Translations: [Benign prostatic hyperplasia without lower urinary tract symptoms] Onset: 10-26-2021 05-28-2021 Chronic Nonspecific chest pain (9 sources) Chest pain; Translations: [Chest pain, unspecified] 07-20-2020 Episodic Osteoarthritis (13 sources) Arthritis; Translations: [Unspecified osteoarthritis, unspecified site] Onset: 03-22-2022 07-21-2020 Chronic Other aftercare (5 sources) Long-term current use of anticoagulant; Translations: [bed bug exterminator (current) use of anticoagulants] 06-23-2021 Episodic Other aftercare (7 sources) senior living (current) use of anticoagulants; Translations: [Long-term (current) use of anticoagulants] Onset: 08-04-2021 Episodic Other connective tissue disease (8 sources) History of total hip arthroplasty; Translations: [Presence of left artificial hip joint] 05-28-2021 Chronic Other connective tissue disease (7 sources) Presence of left artificial hip joint; Translations: [Hip joint replacement] Onset: 08-04-2021 Chronic Other connective tissue disease (5 sources) Presence of right artificial hip joint; Translations: [Hip joint replacement] Onset: 03-22-2022 04-03-2022 Chronic Other connective tissue disease (2 sources) Muscle weakness; Translations: [Muscle weakness (generalized)] 03-23-2022 Episodic Other connective tissue disease (3 sources) Muscle weakness (generalized); Translations: [Muscle weakness (generalized)] Onset: 03-22-2022 04-03-2022 Episodic Other hematologic conditions (2 sources) Protein level - finding; Translations: [Other specified abnormalities of plasma proteins] 07-20-2020 Episodic Other hematologic conditions (7 sources) Raised cardiac enzyme or marker; Translations: [Other specified abnormalities of plasma proteins] 07-20-2020 Episodic Other liver diseases (1 source) Jaundice; Translations: [Unspecified jaundice] 05-27-2022 Episodic Other liver diseases (1 source) Elevated liver enzymes level; Translations: [Abnormal levels of other serum enzymes] 05-27-2022 Episodic Other liver diseases (2 sources) Abnormal levels of other serum enzymes; Translations: [Other nonspecific abnormal serum enzyme levels] Onset: 05-26-2022 05-29-2022 Episodic Other liver diseases (2 sources) Unspecified jaundice; Translations: [Jaundice, unspecified, not of ] Onset: 05-26-2022 05-29-2022 Episodic Other nervous system disorders (2 sources) Postoperative pain ; Translations: [Other acute postprocedural pain] 03-23-2022 Episodic Other nervous system disorders (3 sources) Other acute postprocedural pain; Translations: [Other acute postoperative pain] Onset: 03-22-2022 04-03-2022 Episodic Other non-traumatic joint disorders (7 sources) Hip pain; Translations: [Pain in left hip] 05-22-2021 Episodic Other non-traumatic joint disorders (4 sources) Pain in left hip; Translations: [Pain in joint, pelvic region and thigh] Onset: 02-27-2022 Episodic Other nutritional; endocrine; and metabolic disorders (9 sources) Obesity; Translations: [Obesity, unspecified] 07-21-2020 Chronic Other nutritional; endocrine; and metabolic disorders (3 sources) Obesity, unspecified; Translations: [Obesity, unspecified] Chronic Other nutritional; endocrine; and metabolic disorders (2 sources) Body mass index 30+ - obesity; Translations: [Body mass index (BMI) 30.0-30.9, adult] Onset: 02-16-2023 02-16-2023 Chronic Other nutritional; endocrine; and metabolic disorders (2 sources) Body mass index (BMI) 30.0-30.9, adult; Translations: [Body mass index (BMI) 30.0-30.9, adult] Onset: 02-16-2023 Chronic Residual codes; unclassified (5 sources) At risk for impaired skin integrity ; Translations: [Other specified personal risk factors, not elsewhere classified] 06-16-2021 Episodic Residual codes; unclassified (2 sources) Other specified health status; Translations: [Other specified health status] Onset: 08-04-2021 Episodic Screening and history of mental health and substance abuse codes (6 sources) Ex-smoker; Translations: [Personal history of tobacco use] Episodic Comment on above: Quit smokiing 50-60 years-smoked a pipe; Unclassified (6 sources) Finding related to ability to mobilize; Translations: [Assistance needed for ambulation and movement] 06-16-2021 Unclassified (1 source) CONTACT W/AND (SUSP) EXPOS COVID-19; Translations: [CONTACT W/AND (SUSP) EXPOS COVID-19] Onset: 12-26-2021 Unclassified (1 source) Unilateral primary osteoarthritis, right hip; Translations: [Unilateral primary osteoarthritis, right hip] Onset: 03-22-2022 Unclassified (1 source) Encounter for preprocedural laboratory examination; Translations: [Encounter for preprocedural laboratory examination] Onset: 12-07-2021 Unclassified (1 source) Z74.09 - Other reduced mobility; Translations: [Z74.09 - Other reduced mobility] Onset: 08-04-2021 Unclassified (2 sources) Other persistent atrial fibrillation; Translations: [Other persistent atrial fibrillation (CMS/HCC)] Onset: 11-29-2022 Urinary tract infections (14 sources) Urinary tract infection, site not specified; Translations: [Other cystitis without hematuria] Onset: 10-26-2021 Episodic Past or Other Problems Problem Classification Problem Date Documented Da te Episodic/Chronic Allergic reactions (1 source) Localized skin eruption due to drugs and medicaments taken internally; Translations: [LOC SKN ERUPT D/T RX TAKE INTERNALY] Onset: 2 Episodic Coronary atherosclerosis and other heart disease (2 sources) Presence of coronary angioplasty implant and graft; Translations: [Presence of coronary angioplasty implant and graft] Onset: 3 Episodic Diabetes mellitus without complication (1 source) Hyperglycemia, unspecified; Translations: [HYPERGLYCEMIA UNSPECIFIED] Onset: 2 Episodic E Codes: Adverse effects of medical drugs (1 source) Adverse effect of other systemic antibiotics, initial encounter; Translations: [ADVERSE EFF OTH SYS ABX INITIAL ENC] Onset: 2 Episodic Fluid and electrolyte disorders (1 source) Hypo-osmolality and hyponatremia; Translations: [HYPO-OSMOLALITY AND HYPONATREMIA] Onset: 2 Episodic Genitourinary symptoms and ill-defined conditions (9 sources) Retention of urine; Translations: [Retention of urine, unspecified] Onset: 2 Episodic Other aftercare (1 source) senior living (current) use of aspirin; Translations: [SENIOR CARE CURRENT USE OF ASPIRIN] Onset: 2 Episodic Other aftercare (1 source) Other shelter (current) drug therapy; Translations: [[employer]PER[employer] CURRENT DRUG THERAPY] Onset: 2 Episodic Other gastrointestinal disorders (1 source) Constipation, unspecified; Translations: [CONSTIPATION UNSPECIFIED] Onset: 2 Episodic Other nutritional; endocrine; and metabolic disorders (1 source) Other symptoms and signs concerning food and fluid intake; Translations: [R63.8 - Other symptoms and signs concerning food and fluid intake] Onset: 2 Episodic Other screening for suspected conditions (not mental disorders or infectious disease) (4 sources) Prolonged QT interval; Translations: [Abnormal electrocardiogram [ECG] [EKG]] Onset: 8 05-25-2022 Episodic Residual codes; unclassified (2 sources) Other specified personal risk factors, not elsewhere classified; Translations: [Other specified conditions influencing health status] Onset: 2 Episodic Residual codes; unclassified (1 source) Insomnia, unspecified; Translations: [INSOMNIA UNSPECIFIED] Onset: 2 Episodic Residual codes; unclassified (1 source) Do not resuscitate; Translations: [DO NOT RESUSCITATE] Onset: 2 Episodic Septicemia (except in labor) (1 source) Other specified sepsis; Translations: [OTHER SPECIFIED SEPSIS] Onset: 2 Episodic Unclassified (1 source) Onset: 4 02-16-2023 Results Test Name Value Interpretation Reference Range Facility 36on 04-29-2023 36 PATIENT LEFT MESSAGE ON THAT FATHER IS IN EXTREME HIP PAIN. SPOKE WITH CADY AND INFORMED WILL NOT BE IN OFFICE UNTIL NEXT TUESDAY, ADVISED TO TAKE PATIENT TO ER FOR EVALUATION, SON DENIES ANY RECENT FALLS, MIGHT HAVE TURNED OR TWISTED HIP. HE WILL TAKE FATHER TO CLOSEST ER AND CALL WITH PROGRESS//HALF-WAY Normal [facility] ECG 12 Leadon 02-16-2023 Normal sinus rhythm with first-degree AV block with normal QTc interval [facility] Work Phone: Follow-Upon 01-20-2023 Follow-Up [id number] Jon Pradhan bernadine Selene 1945 M Date Provider Department Center 01/20/2023 Christie-ABBEY ARVIZU MP ORTHO MPORTHO Family History Family history unknown: Yes Level of Service:94409 [place] OFFICE/OUTPATIENT ESTABLISHED LOW MDM 20 MIN Reason for Visit and Comments: Follow-up [992520] Normal [facility] Patient Letter FTon [address] [facility] (Inserted Image. Archana ble to display) September 06, 2022 [place] [id number] : 1945 Dear Mr. Angella Pradhan, [facility] is glad to hear you had your surgery and are recovering at home. Please call the office once you are able to ambulate, so we can get you scheduled for the bladder function test (urodynamics) and Cystoscopy (scope of bladder). We wish you a quick recovery. Sincerely, [facility] option #3 Normal [facility] Alanine aminotransferase [En zymatic activity/volume] in Serum or PlasmaOrdered By: Anshu Jennings on 05-29-2022 ALT [Catalytic activity/Vol] 60 U/L 7-52 [facility] Albumin [Mass/volume] in Ser um or Plasma by Bromocresol green (BCG) dye binding methoOrdered By: Anshu Jennings on 05-29-2022 Albumin BCG dye [Mass/Vol] 2.6 g/dL 3.5-5.7 [facility] Alkaline phosphatase [Enzyma tic activity/volume] in Serum or PlasmaOrdered By: Anshu Jennings on 05-29-2022 ALP [Catalytic activity/Vol] 179 U/L 34-104 [facility] Aspartate aminotransferase [ Enzymatic activity/volume] in Serum or PlasmaOrdered By: Anshu Beardr on 05-29-2022 AST [Catalytic activity/Vol] 32 U/L 13-39 [facility] Basophils Auto (Bld) [#/Vol] Ordered By: Obtresa Castroomar on 05-29-2022 Basophils (Bld) [#/Vol] 0.0 10*3/uL 0.0-0.2 [facility] Basophils/100 WBC Auto (Bld) Ordered By: Obtresa Castroomar on 05-29-2022 Basophils/100 WBC (Bld) 0.3 % . [facility] Bilirubin.total [Mass/volume ] in Serum or PlasmaOrdered By: Anshu Beardr on 05-29-2022 Bilirubin [Mass/Vol] 2.3 mg/dL 0.3-1.0 [facility] Comment on above: Samples from patient s who have taken Naproxen have shown spurious elevation in Total Bilirubin levels. A metabolite of Naproxen, O-desmethylnaproxen, has been shown to interfere with the Gisella-Brandyn method for measuring Total Bilirubin. Calcium [Mass/volume] in Ser um or PlasmaOrdered By: Anshu Jennings on 05-29-2022 Calcium [Mass/Vol] 7.7 mg/dL 8.6-10.3 [facility] Carbon dioxide, total [Moles /volume] in Serum or PlasmaOrdered By: Anshu Castroomar on 05-29-2022 CO2 [Moles/Vol] 25.6 mmol/L 21.0-31.0 [facility] Chloride [Moles/volume] in S marysol or PlasmaOrdered By: Obtresa Castroomar on 05-29-2022 Chloride [Moles/Vol] 102 mmol/L 98-107 [facility] Complete Blood Count Auto Di ffon 05-29-2022 Basophils (Bld) [#/Vol] 0.0 10*3/uL Normal 0.0-0.2 [facility] Comment on above: Result Comment: PERF ORMED BY: [facility] [address] [place] [address] PATHOLOGIST VENDING MACHINE TECHNICIAN CHELSY BHAGAT M.D. Performed By: #### A ERC #### [facility] [address] [place] [address] [place] Basophils/100 WBC (Bld) 0.3 % Normal . [facility] Comment on above: Performed By: #### A ERC #### [facility] [address] [place] [address] [place] Eosinophils (Bld) [#/Vol] 0.2 10*3/uL Normal 0.0-0.45 [facility] Comment on above: Performed By: #### A ERC #### [facility] [address] [place] [address] [place] Eosinophils/100 WBC (Bld) 2.8 % Normal . [facility] Comment on above: Performed By: #### A ERC #### [address] Erythrocyte distribution width (RBC) [Ratio] 14.4 % Normal 12.0-14.8 [facility] Comment on above: Performed By: #### A ERC #### [address] Hematocrit (Bld) [Volume fraction] 37.8 % Low 38.8-50.0 [facility] Comment on above: Performed By: #### A ERC #### [address] Hemoglobin (Bld) [Mass/Vol] 12.5 g/dL Low 13.0-17.0 [facility] Comment on above: Performed By: #### A ERC #### [facility] [address] [place] [address] [place] Lymphocytes (Bld) [#/Vol] 0.8 10*3/uL Low 1.00-4.8 [facility] Comment on above: Performed By: #### A ERC #### [address] Lymphocytes/100 WBC (Bld) 11.0 % Normal . [facility] Comment on above: Performed By: #### A ERC #### [facility] [address] MCH (RBC) [Entitic mass] 29.1 pg Normal 27.5-35.2 [facility] Comment on above: Performed By: #### A ERC #### [address] MCV (RBC) [Entitic vol] 88.1 fL Normal 83.5-101 [facility] Comment on above: Performed By: #### A ERC #### [address] Mean Corpuscular HGB Conc 33.0 g/dL Normal 32.5-35.6 [facility] Comment on above: Performed By: #### A ERC #### [address] Monocytes (Bld) [#/Vol] 1.0 10*3/uL High 0.0-0.8 [facility] Comment on above: Performed By: #### A ERC #### [address] Monocytes/100 WBC (Bld) 13.1 % Normal . [facility] Comment on above: Performed By: #### A ERC #### [address] Neutrophils (Bld) [#/Vol] 5.6 10*3/uL Normal 1.8-7.7 [facility] Comment on above: Performed By: #### A ERC #### [address] Neutrophils/100 WBC (Bld) 72.8 % Normal . [facility] Comment on above: Performed By: #### A ERC #### [address] NRBC% 0.2 /100{WBC} Normal 0-0.5 [facility] Comment on above: Performed By: #### A ERC #### [address] Platelet mean volume (Bld) [Entitic vol] 9.0 fL Normal 6.6-10.1 [facility] Comment on above: Performed By: #### A ERC #### [address] Platelets (Bld) [#/Vol] 154 10*3/uL Normal 150-450 [facility] Comment on above: Performed By: #### A ERC #### [address] RBC (Bld) [#/Vol] 4.29 10*6/uL Normal 3.90-5.60 [facility] Comment on above: Performed By: #### A ERC #### [address] WBC (Bld) [#/Vol] 7.7 10*3/uL Normal 4.1-10.5 [facility] Comment on above: Performed By: #### A ERC #### [address] Comprehensive Metabolic Pane jas 05-29-2022 Albumin [Mass/Vol] 2.6 g/dL Low 3.5-5.7 [facility] Comment on above: Performed By: #### A ERC #### [address] Albumin/Globulin [Mass ratio] 0.9 {ratio} Normal [facility] Comment on above: Performed By: #### A ERC #### [address] ALP [Catalytic activity/Vol] 179 U/L High 34-104 [facility] Comment on above: Performed By: #### A ERC #### [address] ALT [Catalytic activity/Vol] 60 U/L High 7-52 [facility] Comment on above: Performed By: #### A ERC #### [address] Anion gap [Moles/Vol] 10.8 mmol/L Normal 6.0-15.0 [facility] Comment on above: Performed By: #### A ERC #### [facility] [address] AST [Catalytic activity/Vol] 32 U/L Normal 13-39 [facility] Comment on above: Performed By: #### A ERC #### [facility] [address] Bilirubin [Mass/Vol] 2.3 mg/dL High 0.3-1.0 [facility] Comment on above: Result Comment: Samp les from patients who have taken Naproxen have shown spurious elevation in Total Bilirubin levels. A metabolite of Naproxen, O-desmethylnaproxen, has been shown to interfere with the Jendrassik-Grof method for measuring Total Bilirubin. Performed By: #### A ERC #### [address] Calcium [Mass/Vol] 7.7 mg/dL Low 8.6-10.3 [facility] Comment on above: Performed By: #### A ERC #### [facility] [address] [place] [address] [place] Chloride [Moles/Vol] 102 mmol/L Normal 98-107 [facility] Comment on above: Performed By: #### A ERC #### [address] CO2 [Moles/Vol] 25.6 mmol/L Normal 21.0-31.0 [facility] Comment on above: Performed By: #### A ERC #### [facility] [address] Creatinine [Mass/Vol] 0.59 mg/dL Low 0.70-1.30 [facility] Comment on above: Performed By: #### A ERC #### [address] Creatinine Clr Calc Pharmacy 74.62 Normal [facility] Comment on above: Result Comment: PERF ORMED BY: [place] [address] PATHOLOGIST VENDING MACHINE TECHNICIAN CHELSY BHAGAT M.D. Performed By: #### A ERC #### [place] [address] [place] GFR/1.73 sq M.predicted MDRD (S/P/Bld) [Vol rate/Area] mL/min/{1.73_m2} [facility] Comment on above: Performed By: #### A ERC #### [facility] [address] Globulin (S) [Mass/Vol] 2.8 g/dL [facility] Comment on above: Performed By: #### A ERC #### [address] Glucose [Mass/Vol] 86 mg/dL Normal 70-100 [facility] Comment on above: Result Comment: [facility] Glucose Reference Range is dependent on time and content of last meal. Glucose of more than 200 mg/dL in a nonstressed, ambulatory subject supports the diagnosis of Diabetes Mellitus. ADA recommended reference range Performed By: #### A ERC #### [address] Potassium [Moles/Vol] 3.4 mmol/L Low 3.5-5.1 [facility] Comment on above: Performed By: #### A ERC #### [address] Protein [Mass/Vol] 5.4 g/dL Low 6.4-8.9 [facility] Comment on above: Performed By: #### A ERC #### [address] Sodium [Moles/Vol] 135 mmol/L Low 136-145 [facility] Comment on above: Performed By: #### A ERC #### [address] Urea nitrogen [Mass/Vol] 10 mg/dL Normal 7-25 [facility] Comment on above: Performed By: #### A ERC #### [place] [address] [facility] Creatinine [Mass/volume] in Serum or PlasmaOrdered By: Anshu Jennings on 05-29-2022 Creatinine [Mass/Vol] 0.59 mg/dL 0.70-1.30 [facility] ECG 12 lead ECGon 05-29-2022 ECG 12 lead ECG [facility] Main [place] [address] [place] [address] Electrocardiograph Report Signed Patient: Angella Pradhan MR#: [id number] : 1945 Acct:[id number] Age/Sex: 76 / M ADM Date: 05/26/22 Loc: Room: [address] [place] [address] Type: ADM IN Attending Dr: Anshu Jennings MD Ordering Provider: Pino Dunbar MD Date of Service: 05/29/22 ECG/ECG 12 lead ECG: betapace/qtc Copies to: Test Reason : Blood Pressure : / mmHG Vent. Rate : 070 BPM Atrial Rate : 070 BPM P-R Int : 232 ms QRS Dur : 088 ms QT Int : 448 ms P-R-T Axes : 000 007 038 degrees QTc Int : 483 ms Sinus rhythm with 1st degree AV block with premature atrial complexes Prolonged QT Abnormal ECG When compared with ECG of 28-MAY-2022 08:29, Previous ECG has undetermined rhythm, needs review QT has shortened Confirmed by PINO DUNBAR MD ([id number]) on 05/29/2022 10:50:42 AM Referred By: Electronically Signed By:PINO DUNBAR MD Transcribed By: MUS Signed By Pino Dunbar MD 0 05/29/22 1050 Normal [facility] Eosinophils Auto (Bld) [#/Vo l]Ordered By: Anshu Jennings on 05-29-2022 Eosinophils (Bld) [#/Vol] 0.2 10*3/uL 0.0-0.45 [facility] Eosinophils/100 WBC Auto (Bl d)Ordered By: Anshu Jennings on 05-29-2022 Eosinophils/100 WBC (Bld) 2.8 % . [facility] Erythrocyte distribution wid th Auto (RBC) [Ratio]Ordered By: Anshu Jennings on 05-29-2022 Erythrocyte distribution width (RBC) [Ratio] 14.4 % 12.0-14.8 [facility] Globulin Calc (S) [Mass/Vol] Ordered By: Anshu Jennings on 05-29-2022 Globulin (S) [Mass/Vol] 2.8 g/dL [facility] Glucose [Mass/volume] in Ser um or PlasmaOrdered By: Anshu Jennings on 05-29-2022 Glucose [Mass/Vol] 86 mg/dL 70-100 [facility] Comment on above: ADA recommended refe rence rangeRandom Glucose Reference Range is dependent on time and content of last meal. Glucose of more than 200 mg/dL in a nonstressed, ambulatory subject supports the diagnosis of Diabetes Mellitus. Hematocrit Auto (Bld) [Volum e fraction]Ordered By: Anshu Jennings on 05-29-2022 Hematocrit (Bld) [Volume fraction] 37.8 % 38.8-50.0 [facility] Hemoglobin [Mass/volume] in BloodOrdered By: Anshu Jennings on 05-29-2022 Hemoglobin (Bld) [Mass/Vol] 12.5 g/dL 13.0-17.0 [facility] Leukocytes [#/volume] correc leslie for nucleated erythrocytes in Blood by Automated counOrdered By: Anshu Jennings on 05-29-2022 WBC corrected for nucl RBC Auto (Bld) [#/Vol] 7.7 10*3/uL 4.1-10.5 [facility] Lymphocytes Auto (Bld) [#/Vo l]Ordered By: Anshu Jennings on 05-29-2022 Lymphocytes (Bld) [#/Vol] 0.8 10*3/uL 1.00-4.8 [facility] Lymphocytes/100 WBC Auto (Bl d)Ordered By: Anshu Jeninngs on 05-29-2022 Lymphocytes/100 WBC (Bld) 11.0 % . [facility] MCH Auto (RBC) [Entitic mass ]Ordered By: Anshu Castroomar on 05-29-2022 MCH (RBC) [Entitic mass] 29.1 pg 27.5-35.2 [facility] MCHC Auto (RBC) [Mass/Vol]Or dered By: Obamiradakenji Castroomar on 05-29-2022 MCHC (RBC) [Mass/Vol] 33.0 g/dL 32.5-35.6 [facility] MCV Auto (RBC) [Entitic vol] Ordered By: Obamiradakenji Castroomar on 05-29-2022 MCV (RBC) [Entitic vol] 88.1 fL 83.5-101 [facility] Monocytes Auto (Bld) [#/Vol] Ordered By: Obtresa Castroomar on 05-29-2022 Monocytes (Bld) [#/Vol] 1.0 10*3/uL 0.0-0.8 [facility] Monocytes/100 WBC Auto (Bld) Ordered By: Anshu Castroomar on 05-29-2022 Monocytes/100 WBC (Bld) 13.1 % . [facility] Neutrophils Auto (Bld) [#/Vo l]Ordered By: Obtresa Castroomar on 05-29-2022 Neutrophils (Bld) [#/Vol] 5.6 10*3/uL 1.8-7.7 [facility] Neutrophils/100 WBC Auto (Bl d)Ordered By: Obtresa Castroomar on 05-29-2022 Neutrophils/100 WBC (Bld) 72.8 % . [facility] No Panel InformationOrdered By: Anshu Jennings on 05-29-2022 Estimated GFR (CKD-EPI) > 60.0 mL/Min [facility] Creatinine Clearance (Chem 74.62 [facility] Nucleated erythrocytes [Pres ence] in Blood by Automated countOrdered By: Anshu Beardr on 05-29-2022 Nucleated RBC Auto Ql (Bld) 0.2 /100{WBC} 0-0.5 [facility] Platelet mean volume Auto (B ld) [Entitic vol]Ordered By: nAshu Castroomar on 05-29-2022 Platelet mean volume (Bld) [Entitic vol] 9.0 fL 6.6-10.1 [facility] Platelets Auto (Bld) [#/Vol] Ordered By: Obaydah Daromar on 05-29-2022 Platelets (Bld) [#/Vol] 154 10*3/uL 150-450 [facility] Potassium [Moles/volume] in Serum or PlasmaOrdered By: Obaydah Daromar on 05-29-2022 Potassium [Moles/Vol] 3.4 mmol/L 3.5-5.1 [facility] Protein [Mass/volume] in Ser um or PlasmaOrdered By: Obaydah Daromar on 05-29-2022 Protein [Mass/Vol] 5.4 g/dL 6.4-8.9 [facility] RBC Auto (Bld) [#/Vol]Ordere d By: Obaydah Daromar on 05-29-2022 RBC (Bld) [#/Vol] 4.29 10*6/uL 3.90-5.60 [facility] Serum or plasma albumin/glob ulin mass ratioOrdered By: Obaydah Daromar on 05-29-2022 Albumin/Globulin [Mass ratio] 0.9 {ratio} [facility] Serum or plasma anion gap de terminationOrdered By: Obaydah Daromar on 05-29-2022 Anion gap [Moles/Vol] 10.8 mmol/L 6.0-15.0 [facility] Sodium [Moles/volume] in Ser um or PlasmaOrdered By: Obaydah Daromar on 05-29-2022 Sodium [Moles/Vol] 135 mmol/L 136-145 [facility] Urea nitrogen [Mass/volume] in Serum or PlasmaOrdered By: Obaydah Daromar on 05-29-2022 Urea nitrogen [Mass/Vol] 10 mg/dL 7-25 [facility] WBC Auto (Bld) [#/Vol]Ordere d By: Obaydah Daromar on 05-29-2022 WBC (Bld) [#/Vol] 7.7 10*3/uL 4.1-10.5 [facility] Bilirubin,Directon Bilirubin.indirect [Mass/Vol] 2.90 mg/dL High 0.03-0.18 [facility] Comment on above: Result Comment: PERF ORMED BY: [place] [address] PATHOLOGIST VENDING MACHINE TECHNICIAN CHELSY BHAGAT M.D. Performed By: #### A ERC #### [address] Bilirubin.direct [Mass/volum e] in Serum or PlasmaOrdered By: Anshu Jennings on 05-28-2022 Bilirubin.direct [Mass/Vol] 2.90 mg/dL 0.03-0.18 [facility] Complete Blood Count Auto Di ffon 05-28-2022 Basophils (Bld) [#/Vol] 0.0 10*3/uL Normal 0.0-0.2 [facility] Comment on above: Result Comment: PERF ORMED BY: [place] [address] PATHOLOGIST VENDING MACHINE TECHNICIAN CHELSY BHAGAT M.D. Performed By: #### A ERC #### [address] Basophils/100 WBC (Bld) 0.5 % Normal . [facility] Comment on above: Performed By: #### A ERC #### [place] [address] [place] Eosinophils (Bld) [#/Vol] 0.0 10*3/uL Normal 0.0-0.45 [facility] Comment on above: Performed By: #### A ERC #### [place] [address] [place] Eosinophils/100 WBC (Bld) 0.5 % Normal . [facility] Comment on above: Performed By: #### A ERC #### [address] Erythrocyte distribution width (RBC) [Ratio] 14.7 % Normal 12.0-14.8 [facility] Comment on above: Performed By: #### A ERC #### [facility] [address] Hematocrit (Bld) [Volume fraction] 39.1 % Normal 38.8-50.0 [facility] Comment on above: Performed By: #### A ERC #### [address] Hemoglobin (Bld) [Mass/Vol] 12.9 g/dL Low 13.0-17.0 [facility] Comment on above: Performed By: #### A ERC #### [address] Lymphocytes (Bld) [#/Vol] 0.7 10*3/uL Low 1.00-4.8 [facility] Comment on above: Performed By: #### A ERC #### [address] Lymphocytes/100 WBC (Bld) 8.0 % Normal . [facility] Comment on above: Performed By: #### A ERC #### [address] MCH (RBC) [Entitic mass] 29.3 pg Normal 27.5-35.2 [facility] Comment on above: Performed By: #### A ERC #### [address] MCV (RBC) [Entitic vol] 88.4 fL Normal 83.5-101 [facility] Comment on above: Performed By: #### A ERC #### [address] Mean Corpuscular HGB Conc 33.1 g/dL Normal 32.5-35.6 [facility] Comment on above: Performed By: #### A ERC #### [address] Monocytes (Bld) [#/Vol] 1.3 10*3/uL High 0.0-0.8 [facility] Comment on above: Performed By: #### A ERC #### [address] [place] [address] [place] Monocytes/100 WBC (Bld) 13.8 % Normal . [facility] Comment on above: Performed By: #### A ERC #### [address] Neutrophils (Bld) [#/Vol] 7.2 10*3/uL Normal 1.8-7.7 [facility] Comment on above: Performed By: #### A ERC #### [address] Neutrophils/100 WBC (Bld) 77.2 % Normal . [facility] Comment on above: Performed By: #### A ERC #### [address] NRBC% 0.1 /100{WBC} Normal 0-0.5 [facility] Comment on above: Performed By: #### A ERC #### [address] Platelet mean volume (Bld) [Entitic vol] 8.6 fL Normal 6.6-10.1 [facility] Comment on above: Performed By: #### A ERC #### [address] Platelets (Bld) [#/Vol] 166 10*3/uL Normal 150-450 [facility] Comment on above: Performed By: #### A ERC #### [address] RBC (Bld) [#/Vol] 4.42 10*6/uL Normal 3.90-5.60 [facility] Comment on above: Performed By: #### A ERC #### [address] WBC (Bld) [#/Vol] 9.3 10*3/uL Normal 4.1-10.5 [facility] Comment on above: Performed By: #### A ERC #### [address] Comprehensive Metabolic Pane jas 05-28-2022 Albumin [Mass/Vol] 2.7 g/dL Low 3.5-5.7 [facility] Comment on above: Performed By: #### A ERC #### [facility] [address] Albumin/Globulin [Mass ratio] 1.0 {ratio} Normal [facility] Comment on above: Performed By: #### A ERC #### [facility] [address] ALP [Catalytic activity/Vol] 171 U/L High 34-104 [facility] Comment on above: Performed By: #### A ERC #### [facility] [address] ALT [Catalytic activity/Vol] 89 U/L High 7-52 [facility] Comment on above: Performed By: #### A ERC #### [address] Anion gap [Moles/Vol] 11.5 mmol/L Normal 6.0-15.0 [facility] Comment on above: Performed By: #### A ERC #### [facility] [address] AST [Catalytic activity/Vol] 47 U/L High 13-39 [facility] Comment on above: Performed By: #### A ERC #### [address] Bilirubin [Mass/Vol] 4.2 mg/dL High 0.3-1.0 [facility] Comment on above: Result Comment: Samp les from patients who have taken Naproxen have shown spurious elevation in Total Bilirubin levels. A metabolite of Naproxen, O-desmethylnaproxen, has been shown to interfere with the Jendrassik-Grof method for measuring Total Bilirubin. Performed By: #### A ERC #### [address] Calcium [Mass/Vol] 7.8 mg/dL Low 8.6-10.3 [facility] Comment on above: Performed By: #### A ERC #### [facility] [address] Chloride [Moles/Vol] 102 mmol/L Normal 98-107 [facility] Comment on above: Performed By: #### A ERC #### [facility] [address] CO2 [Moles/Vol] 25.1 mmol/L Normal 21.0-31.0 [facility] Comment on above: Performed By: #### A ERC #### [facility] [address] Creatinine [Mass/Vol] 0.65 mg/dL Low 0.70-1.30 [facility] Comment on above: Performed By: #### A ERC #### [address] Creatinine Clr Calc Pharmacy 74.79 [facility] Comment on above: Performed By: #### A ERC #### [address] GFR/1.73 sq M.predicted MDRD (S/P/Bld) [Vol rate/Area] mL/min/{1.73_m2} [facility] Comment on above: Performed By: #### A ERC #### [address] Globulin (S) [Mass/Vol] 2.8 g/dL [facility] Comment on above: Performed By: #### A ERC #### [address] Glucose [Mass/Vol] 102 mg/dL High 70-100 [facility] Comment on above: Result Comment: [place] Glucose Reference Range is dependent on time and content of last meal. Glucose of more than 200 mg/dL in a nonstressed, ambulatory subject supports the diagnosis of Diabetes Mellitus. ADA recommended reference range Performed By: #### A ERC #### [address] Potassium [Moles/Vol] 3.6 mmol/L Normal 3.5-5.1 [facility] Comment on above: Performed By: #### A ERC #### [facility] [address] Protein [Mass/Vol] 5.5 g/dL Low 6.4-8.9 [facility] Comment on above: Performed By: #### A ERC #### [facility] [address] Sodium [Moles/Vol] 135 mmol/L Low 136-145 [facility] Comment on above: Performed By: #### A ERC #### [facility] [address] Urea nitrogen [Mass/Vol] 10 mg/dL Normal 7-25 [facility] Comment on above: Performed By: #### A ERC #### [facility] [address] [place] [address] ECG 12 lead ECGon 05-28-2022 ECG 12 lead ECG [facility] Main [place] [address] [place] [address] Electrocardiograph Report Signed Patient: Angella Pradhan MR#: [id number] : 1945 Acct:[id number] Age/Sex: 76 / M ADM Date: 05/26/22 Loc: Room: [address] [place] [address] Type: ADM IN Attending Dr: Anshu Jennings MD Ordering Provider: Pino Dunbar MD Date of Service: 05/28/22 ECG/ECG 12 lead ECG: betapace/qtc Copies to: Test Reason : Blood Pressure : / mmHG Vent. Rate : 056 BPM Atrial Rate : 069 BPM P-R Int : 000 ms QRS Dur : 084 ms QT Int : 558 ms P-R-T Axes : 000 001 022 degrees QTc Int : 538 ms Prolonged QT Abnormal ECG When compared with ECG of 25-MAY-2022 15:51, Atrial fibrillation has replaced Sinus rhythm QT has lengthened Confirmed by MANJINDER DUMONT, PINO ([id number]) on 05/29/2022 12:03:50 AM Referred By: Electronically Signed By:PINO DUNBAR MD Transcribed By: MUS Signed By Pino Dunbar MD 0 05/29/22 0003 Normal [facility] MR MRCPon 05-28-2022 MR MRCP [facility] [place] [address] [place], [place] [id number] MRI Report Signed Patient: Angella Pradhan MR#: [id number] : 1945 Acct:[id number] Age/Sex: 76 / M ADM Date: 05/26/22 Loc: 3T Room: [address] [place] [address] Type: ADM IN Attending Dr: Anshu Jennings MD Copies to: MD Anshu Victoria MD Ordering Provider: Jigar Church MD Date of Service: 05/27/22 MR/MR MRCP: Rule out choledocholithiasis MRI OF THE ABDOMEN WITHOUT CONTRAST: MRCP CLINICAL HISTORY: Possible choledocholithiasis. Epigastric abdominal pain/lower chest pain. COMPARISON: CT abdomen and pelvis 05/25/2022 gallbladder ultrasound 05/25/2022 TECHNIQUE: Multisequence, multiplanar imaging of the abdomen was obtained without the use of IV contrast. MRCP imaging was also obtained. FINDINGS: Suboptimal evaluation due to lack of IV contrast. The liver appears normal in contour without evidence of steatosis or intrahepatic ductal dilatation. No focal T2 abnormality is identified to suggest underlying lesion. Mild periportal edema. Gallbladder demonstrates stones and sludge without wall thickening. Questionable small amount of pericholecystic fluid is seen along the inferior edge of the right lobe of the liver MRCP imaging is suboptimal, however the CBD appears normal in caliber measuring 7 mm without definitive filling defect to suggest choledocholithiasis. No evidence of pancreatic divisum. Pancreatic duct appears normal in caliber. Spleen is grossly unremarkable. Pancreas is atrophic without focal abnormality. Adrenal glands appear unremarkable. Kidneys demonstrate no hydronephrosis. Abdominal aorta appears normal in caliber. No bulky lymphadenopathy or ascites. No pleural effusion. MR/MR MRCP IMPRESSION: GALLBLADDER SLUDGE/STONES. QUESTIONABLE SMALL AMOUNT OF PERICHOLECYSTIC FLUID EXTENDING ALONG THE INFERIOR EDGE OF THE RIGHT LOBE THE LIVER. NO EVIDENCE OF BILIARY DILATATION OR CHOLEDOCHOLITHIASIS. IF ACUTE CHOLECYSTITIS OF CLINICAL CONCERN, FURTHER EVALUATION WITH HIDA SCAN IS RECOMMENDED. Impression dictated by: Horace Stark Jr., D.O.05/28/2022 11:42 AM Dictation Location: [place] [address] Transcribed By: [facility] 05/28/22 1142 Dictated By: Horace Stark Jr, DO 05/28/22 1055 Signed By: 05/28/22 1142 Normal [facility] Bilirubin,Directon 3 Bilirubin.indirect [Mass/Vol] 2.30 mg/dL High 0.03-0.18 [facility] Comment on above: Result Comment: Hemo lysis is present at a level that could interfere with the result. PERFORMED BY: [place] [address] PATHOLOGIST VENDING MACHINE TECHNICIAN CHELSY BHAGAT M.D. Performed By: #### C OVID-19 BECKY, SOFIANEG #### [address] Comprehensive Metabolic Pane jas 05-27-2022 Albumin [Mass/Vol] 3.0 g/dL Low 3.5-5.7 [facility] Comment on above: Performed By: #### C OVID-19 BECKY, SOFIANEG #### [address] Albumin/Globulin [Mass ratio] 1.0 {ratio} [facility] Comment on above: Performed By: #### C OVID-19 BECKY, SOFIANEG #### [facility] [address] [place] [address] [place] ALP [Catalytic activity/Vol] 155 U/L High 34-104 [facility] Comment on above: Performed By: #### C OVID-19 BECKY, SOFIANEG #### [facility] [address] [place] [address] [place] ALT [Catalytic activity/Vol] 144 U/L High 7-52 [facility] Comment on above: Performed By: #### C OVID-19 BECKY, SOFIANEG #### [place] [address] [facility] Anion gap [Moles/Vol] 10.3 mmol/L Normal 6.0-15.0 [facility] Comment on above: Performed By: #### C OVID-19 BECKY SOFIANEG #### [facility] [address] [place] [id number] [facility] AST [Catalytic activity/Vol] 82 U/L High 13-39 [facility] Comment on above: Performed By: #### C OVID-19 BECKY, SOFIANEG #### [facility] [address] Bilirubin [Mass/Vol] 3.8 mg/dL High 0.3-1.0 [facility] Comment on above: Result Comment: Samp les from patients who have taken Naproxen have shown spurious elevation in Total Bilirubin levels. A metabolite of Naproxen, O-desmethylnaproxen, has been shown to interfere with the Jendrlizzethik-Grof method for measuring Total Bilirubin. Performed By: #### C OVID-19 BECKY, SOFIANEG #### [facility] [address] Calcium [Mass/Vol] 8.2 mg/dL Low 8.6-10.3 [facility] Comment on above: Performed By: #### C OVID-19 BECKY, SOFIANEG #### [facility] [address] [place] [id number] [place] Chloride [Moles/Vol] 102 mmol/L Normal 98-107 [facility] Comment on above: Performed By: #### C OVID-19 BECKY, SOFIANEG #### [facility] [address] [place] [id number] [place] CO2 [Moles/Vol] 26.6 mmol/L Normal 21.0-31.0 [facility] Comment on above: Performed By: #### C OVID-19 BECKY, SOFIANEG #### [facility] [address] [place] [id number] [place] Creatinine [Mass/Vol] 0.76 mg/dL Normal 0.70-1.30 [facility] Comment on above: Performed By: #### C OVID-19 BECKY, SOFIANEG #### [facility] [address] [place] [address] [place] Creatinine Clr Calc Pharmacy 74.66 [facility] Comment on above: Performed By: #### C OVID-19 BECKY, SOFIANEG #### [facility] [address] [place] [address] [place] GFR/1.73 sq M.predicted MDRD (S/P/Bld) [Vol rate/Area] mL/min/{1.73_m2} [facility] Comment on above: Performed By: #### C OVID-19 BECKY, SOFIANEG #### [facility] [address] Globulin (S) [Mass/Vol] 2.9 g/dL [facility] Comment on above: Performed By: #### C OVID-19 BECKY, SOFIANEG #### [facility] [address] Glucose [Mass/Vol] 106 mg/dL High 70-100 [facility] Comment on above: Result Comment: [facility] Glucose Reference Range is dependent on time and content of last meal. Glucose of more than 200 mg/dL in a nonstressed, ambulatory subject supports the diagnosis of Diabetes Mellitus. ADA recommended reference range Performed By: #### C OVID-19 BECKY, SOFIANEG #### [facility] [address] Potassium [Moles/Vol] 3.9 mmol/L Normal 3.5-5.1 [facility] Comment on above: Performed By: #### C OVID-19 BECKY, SOFIANEG #### [facility] [address] [place] [address] [place] Protein [Mass/Vol] 5.9 g/dL Low 6.4-8.9 [facility] Comment on above: Performed By: #### C OVID-19 BECKY, SOFIANEG #### [facility] [address] [place] [address] [place] Sodium [Moles/Vol] 135 mmol/L Low 136-145 [facility] Comment on above: Performed By: #### C OVID-19 BECKY, SOFIANEG #### [facility] [address] Urea nitrogen [Mass/Vol] 11 mg/dL Normal 7-25 [facility] Comment on above: Performed By: #### C OVID-19 BECKY, SOFIANEG #### [facility] [address] Platelet adequacy [Presence] in Blood by Light microscopyOrdered By: Obaydah Daromar on 05-27-2022 Platelets LM Ql (Bld) Decreased Normal [facility] Platelet morphology finding [Identifier] in BloodOrdered By: Obaydah Daromar on 05-27-2022 Platelet morphology finding Nom (Bld) Normal Normal [facility] RBC morphologyOrdered By: Ob aydah Daromar on 05-27-2022 RBC morphology finding Nom (Bld) Normal Normal [facility] Scan and CBCon 05-27-2022 Basophils (Bld) [#/Vol] 0.0 10*3/uL Normal 0.0-0.2 [facility] Comment on above: Performed By: #### C OVID-19 BECKY, SOFIANEG #### [facility] [address] [place] [address] Basophils/100 WBC (Bld) 0.4 % Normal . [facility] Comment on above: Performed By: #### C OVID-19 BECKY, SOFIANEG #### [facility] [address] [place] [address] [place] Eosinophils (Bld) [#/Vol] 0.3 10*3/uL Normal 0.0-0.45 [facility] Comment on above: Performed By: #### C OVID-19 BECKY, SOFIANEG #### [facility] [address] [place] [address] Eosinophils/100 WBC (Bld) 4.1 % Normal . [facility] Comment on above: Performed By: #### C OVID-19 BECKY, SOFIANEG #### [facility] [address] Erythrocyte distribution width (RBC) [Ratio] 14.2 % Normal 12.0-14.8 [facility] Comment on above: Performed By: #### C OVID-19 BECKY, SOFIANEG #### [facility] [address] Hematocrit (Bld) [Volume fraction] 42.4 % Normal 38.8-50.0 [facility] Comment on above: Performed By: #### C OVID-19 BECKY, SOFIANEG #### [facility] [address] Hemoglobin (Bld) [Mass/Vol] 13.8 g/dL Normal 13.0-17.0 [facility] Comment on above: Performed By: #### C OVID-19 BECKY, SOFIANEG #### [facility] [address] Lymphocytes (Bld) [#/Vol] 0.6 10*3/uL Low 1.00-4.8 [facility] Comment on above: Performed By: #### C OVID-19 BECKY, SOFIANEG #### [facility] [address] Lymphocytes/100 WBC (Bld) 9.4 % Normal . [facility] Comment on above: Performed By: #### C OVID-19 BECKY, SOFIANEG #### [facility] [address] MCH (RBC) [Entitic mass] 29.2 pg Normal 27.5-35.2 [facility] Comment on above: Performed By: #### C OVID-19 BECKY, SOFIANEG #### [facility] [address] MCV (RBC) [Entitic vol] 89.9 fL Normal 83.5-101 [facility] Comment on above: Performed By: #### C OVID-19 BECKY, SOFIANEG #### [facility] [address] Mean Corpuscular HGB Conc 32.5 g/dL Normal 32.5-35.6 [facility] Comment on above: Performed By: #### C OVID-19 BECKY, SOFIANEG #### [facility] [address] [place] [address] Monocytes (Bld) [#/Vol] 0.8 10*3/uL Normal 0.0-0.8 [facility] Comment on above: Performed By: #### C OVID-19 BECKY, SOFIANEG #### [address] Monocytes/100 WBC (Bld) 12.3 % Normal . [facility] Comment on above: Performed By: #### C OVID-19 BECKY, SOFIANEG #### [address] Neutrophils (Bld) [#/Vol] 5.0 10*3/uL Normal 1.8-7.7 [facility] Comment on above: Performed By: #### C OVID-19 BECKY, SOFIANEG #### [address] Neutrophils/100 WBC (Bld) 73.8 % Normal . [facility] Comment on above: Performed By: #### C OVID-19 BECKY, SOFIANEG #### [address] NRBC% 0.1 /100{WBC} Normal 0-0.5 [facility] Comment on above: Performed By: #### C OVID-19 BECKY, SOFIANEG #### [address] Platelet Estimate Decreased Normal Normal [facility] Comment on above: Performed By: #### C OVID-19 BECKY, SOFIANEG #### [address] Platelet mean volume (Bld) [Entitic vol] 8.4 fL Normal 6.6-10.1 [facility] Comment on above: Performed By: #### C OVID-19 BECKY, SOFIANEG #### [address] Platelet Morphology Normal Normal Normal [facility] Comment on above: Result Comment: PERF ORMED BY: [place] [address] PATHOLOGIST VENDING MACHINE TECHNICIAN CHELSY BHAGAT M.D. Performed By: #### C OVID-19 BECKY, SOFIANEG #### [facility] [address] [place] [address] Platelets (Bld) [#/Vol] 143 10*3/uL Low 150-450 [facility] Comment on above: Performed By: #### C OVID-19 BECKY, SOFIANEG #### [address] RBC (Bld) [#/Vol] 4.72 10*6/uL Normal 3.90-5.60 [facility] Comment on above: Performed By: #### C OVID-19 BECKY, SOFIANEG #### [address] RBC morphology finding Nom (Bld) Normal Normal Normal [facility] Comment on above: Performed By: #### C OVID-19 BECKY, SOFIANEG #### [address] WBC (Bld) [#/Vol] 6.7 10*3/uL Normal 4.1-10.5 [facility] Comment on above: Performed By: #### C OVID-19 BECKY, SOFIANEG #### [address] Bilirubin,Directon 3 Bilirubin.indirect [Mass/Vol] 2.60 mg/dL High 0.03-0.18 [facility] Comment on above: Result Comment: PERF ORMED BY: [place] [address] PATHOLOGIST VENDING MACHINE TECHNICIAN CHELSY BHAGAT M.D. Performed By: #### B ILID, MG, CMP #### [facility] [address] [place] [address] Complete Blood Count Auto Di ffon 05-26-2022 Basophils (Bld) [#/Vol] 0.1 10*3/uL Normal 0.0-0.2 [facility] Comment on above: Result Comment: PERF ORMED BY: [facility] [address] [place] [address] PATHOLOGIST VENDING MACHINE TECHNICIAN CHELSY BHAGAT M.D. Performed By: #### C BC ####[address] Basophils/100 WBC (Bld) 0.5 % Normal . [facility] Comment on above: Performed By: #### C BC ####[address] Eosinophils (Bld) [#/Vol] 0.3 10*3/uL Normal 0.0-0.45 [facility] Comment on above: Performed By: #### C BC ####[address] Eosinophils/100 WBC (Bld) 2.8 % Normal . [facility] Comment on above: Performed By: #### C BC ####[address] Erythrocyte distribution width (RBC) [Ratio] 14.2 % Normal 12.0-14.8 [facility] Comment on above: Performed By: #### C BC ####[address] Hematocrit (Bld) [Volume fraction] 39.9 % Normal 38.8-50.0 [facility] Comment on above: Performed By: #### C BC ####[address] Hemoglobin (Bld) [Mass/Vol] 12.9 g/dL Low 13.0-17.0 [facility] Comment on above: Performed By: #### C BC ####[address] Lymphocytes (Bld) [#/Vol] 0.8 10*3/uL Low 1.00-4.8 [facility] Comment on above: Performed By: #### C BC ####[address] [address] [facility] Lymphocytes/100 WBC (Bld) 7.0 % Normal . [facility] Comment on above: Performed By: #### C BC ####[address] [address] [facility] MCH (RBC) [Entitic mass] 29.1 pg Normal 27.5-35.2 [facility] Comment on above: Performed By: #### C BC ####[place] [id number] [facility] MCV (RBC) [Entitic vol] 89.6 fL Normal 83.5-101 [facility] Comment on above: Performed By: #### C BC ####[place] [id number] [facility] Mean Corpuscular HGB Conc 32.4 g/dL Low 32.5-35.6 [facility] Comment on above: Performed By: #### C BC ####[address] [address] [facility] Monocytes (Bld) [#/Vol] 1.4 10*3/uL High 0.0-0.8 [facility] Comment on above: Performed By: #### C BC ####[place] [id number] [facility] Monocytes/100 WBC (Bld) 13.4 % Normal . [facility] Comment on above: Performed By: #### C BC ####[address] [address] [facility] Neutrophils (Bld) [#/Vol] 8.2 10*3/uL High 1.8-7.7 [facility] Comment on above: Performed By: #### C BC ####[address] [address] [facility] Neutrophils/100 WBC (Bld) 76.3 % Normal . [facility] Comment on above: Performed By: #### C BC ####[facility] [place] [id number] [facility] NRBC% 0.0 /100{WBC} Normal 0-0.5 [facility] Comment on above: Performed By: #### C BC ####[facility] [place] [id number] [facility] Platelet mean volume (Bld) [Entitic vol] 8.3 fL Normal 6.6-10.1 [facility] Comment on above: Performed By: #### C BC ####[place] [id number] [address] Platelets (Bld) [#/Vol] 159 10*3/uL Normal 150-450 [facility] Comment on above: Performed By: #### C BC ####[address] RBC (Bld) [#/Vol] 4.45 10*6/uL Normal 3.90-5.60 [facility] Comment on above: Performed By: #### C BC ####[address] WBC (Bld) [#/Vol] 10.7 10*3/uL High 4.1-10.5 [facility] Comment on above: Performed By: #### C BC ####[place] [id number] [facility] Comprehensive Metabolic Pane jas 05-26-2022 Albumin [Mass/Vol] 2.9 g/dL Low 3.5-5.7 [facility] Comment on above: Performed By: #### B ILID, MG, CMP #### [facility] [address] Albumin/Globulin [Mass ratio] 1.2 {ratio} Normal [facility] Comment on above: Performed By: #### B ILID, MG, CMP #### [facility] [address] ALP [Catalytic activity/Vol] 127 U/L High 34-104 [facility] Comment on above: Performed By: #### B ILID, MG, CMP #### [facility] [address] [place] [id number] [facility] ALT [Catalytic activity/Vol] 180 U/L High 7-52 [facility] Comment on above: Performed By: #### B ILID, MG, CMP #### [facility] [address] [place] [address] [facility] Anion gap [Moles/Vol] 12.7 mmol/L Normal 6.0-15.0 [facility] Comment on above: Performed By: #### B ILID, MG, CMP #### [facility] [address] AST [Catalytic activity/Vol] 138 U/L High 13-39 [facility] Comment on above: Performed By: #### B ILID, MG, CMP #### [facility] [address] Bilirubin [Mass/Vol] 3.9 mg/dL High 0.3-1.0 [facility] Comment on above: Result Comment: Samp les from patients who have taken Naproxen have shown spurious elevation in Total Bilirubin levels. A metabolite of Naproxen, O-desmethylnaproxen, has been shown to interfere with the Jendrassik-Grof method for measuring Total Bilirubin. Performed By: #### B ILID, MG, CMP #### [facility] [address] [place] [address] [place] Calcium [Mass/Vol] 8.0 mg/dL Low 8.6-10.3 [facility] Comment on above: Performed By: #### B ILID, MG, CMP #### [facility] [address] [place] [id number] [place] Chloride [Moles/Vol] 102 mmol/L Normal 98-107 [facility] Comment on above: Performed By: #### B ILID, MG, CMP #### [facility] [address] [place] [address] [place] CO2 [Moles/Vol] 25.1 mmol/L Normal 21.0-31.0 [facility] Comment on above: Performed By: #### B ILID, MG, CMP #### [facility] [address] Creatinine [Mass/Vol] 0.82 mg/dL Normal 0.70-1.30 [facility] Comment on above: Performed By: #### B ILID, MG, CMP #### [facility] [address] [place] [address] [place] Creatinine Clr Calc Pharmacy 67.00 [facility] Comment on above: Performed By: #### B ILID, MG, CMP #### [facility] [address] [place] [address] [place] GFR/1.73 sq M.predicted MDRD (S/P/Bld) [Vol rate/Area] mL/min/{1.73_m2} [facility] Comment on above: Performed By: #### B ILID, MG, CMP #### [facility] [address] Globulin (S) [Mass/Vol] 2.5 g/dL [facility] Comment on above: Performed By: #### B ILID, MG, CMP #### [address] Glucose [Mass/Vol] 95 mg/dL Normal 70-100 [facility] Comment on above: Result Comment: [place] Glucose Reference Range is dependent on time and content of last meal. Glucose of more than 200 mg/dL in a nonstressed, ambulatory subject supports the diagnosis of Diabetes Mellitus. ADA recommended reference range Performed By: #### B ILID, MG, CMP #### [facility] [address] Potassium [Moles/Vol] 3.8 mmol/L Normal 3.5-5.1 [facility] Comment on above: Performed By: #### B ILID, MG, CMP #### [facility] [address] Protein [Mass/Vol] 5.4 g/dL Low 6.4-8.9 [facility] Comment on above: Performed By: #### B ILID, MG, CMP #### [facility] [address] Sodium [Moles/Vol] 136 mmol/L Normal 136-145 [facility] Comment on above: Performed By: #### B ILID, MG, CMP #### [facility] [address] Urea nitrogen [Mass/Vol] 12 mg/dL Normal 7-25 [facility] Comment on above: Performed By: #### B ILID, MG, CMP #### [facility] [address] Glucose Glucometer (BldC) [M ass/Vol]Ordered By: Anshu Jennings on 05-26-2022 Glucose [Mass/Vol] 115 mg/dL [facility] Comment on above: Random Glucose Refer ence Range is dependent on time and content of last meal. Glucose of more than 200 mg/dL in a nonstressed, ambulatory subject supports the diagnosis of Diabetes Mellitus. Glucose Poct Glucometerson 0 05-26-2022 Commemt1 Glu2: Cleaned Meter Normal [facility] Comment on above: Result Comment: PERF ORMED BY: [place] [address] PATHOLOGIST VENDING MACHINE TECHNICIAN CHELSY BHAGAT M.D. Performed By: #### B ILID, MG, CMP #### [address] Glucose [Mass/Vol] 115 mg/dL Normal [facility] Comment on above: Result Comment: [place] om Glucose Reference Range is dependent on time and content of last meal. Glucose of more than 200 mg/dL in a nonstressed, ambulatory subject supports the diagnosis of Diabetes Mellitus. Performed By: #### B ILID, MG, CMP #### [facility] [address] Magnesiumon 05-26-2022 Magnesium [Mass/Vol] 2.1 mg/dL Normal 1.9-2.7 [facility] Comment on above: Performed By: #### B ILID, MG, CMP #### [facility] [address] [place] [id number] [facility] Magnesium [Mass/volume] in S marysol or PlasmaOrdered By: Anshu Jennings on 05-26-2022 Magnesium [Mass/Vol] 2.1 mg/dL 1.9-2.7 [facility] No Panel InformationOrdered By: Anshu Jennings on 05-26-2022 Bedside Glucose Comment Glu2: cleaned meter [facility] Activated partial thrombopla stin time (aPTT) in platelet poor plasma by coagulation aOrdered By: Anna Navarro on 05-25-2022 aPTT Coag (PPP) [Time] 31.8 s 25.1-36.5 [facility] Alanine aminotransferase [En zymatic activity/volume] in Serum or PlasmaOrdered By: Anna Navarro on 05-25-2022 ALT [Catalytic activity/Vol] 49 U/L 7-52 [facility] Albumin [Mass/volume] in Ser um or Plasma by Bromocresol green (BCG) dye binding methoOrdered By: Anna Navarro on 05-25-2022 Albumin BCG dye [Mass/Vol] 3.4 g/dL 3.5-5.7 [facility] Alkaline phosphatase [Enzyma tic activity/volume] in Serum or PlasmaOrdered By: Anna Navarro on 05-25-2022 ALP [Catalytic activity/Vol] 104 U/L 34-104 [facility] Aspartate aminotransferase [ Enzymatic activity/volume] in Serum or PlasmaOrdered By: Anna Navarro on 05-25-2022 AST [Catalytic activity/Vol] 85 U/L 13-39 [facility] B-Type Natriuretic Peptideon 05-25-2022 Natriuretic peptide B (Bld) [Mass/Vol] 94.0 pg/mL Normal 5-100 [facility] Comment on above: Result Comment: PERF ORMED BY: [facility] [address] [place] [address] PATHOLOGIST VENDING MACHINE TECHNICIAN CHELSY BHAGAT M.D. Performed By: #### P TT, HS TROP, HEPATIC, CBC, PT, BMP, LIPASE, BNP ####[place] [id number] [facility] Basic Metabolic Panelon 05-08 Anion gap [Moles/Vol] 13.2 mmol/L Normal 6.0-15.0 [facility] Comment on above: Performed By: #### P TT, HS TROP, HEPATIC, CBC, PT, BMP, LIPASE, BNP ####[place] [id number] [facility] Calcium [Mass/Vol] 8.1 mg/dL Low 8.6-10.3 [facility] Comment on above: Performed By: #### P TT, HS TROP, HEPATIC, CBC, PT, BMP, LIPASE, BNP ####[place] [id number] [facility] Chloride [Moles/Vol] 103 mmol/L Normal 98-107 [facility] Comment on above: Performed By: #### P TT, HS TROP, HEPATIC, CBC, PT, BMP, LIPASE, BNP ####[place] [id number] [facility] CO2 [Moles/Vol] 25.9 mmol/L Normal 21.0-31.0 [facility] Comment on above: Performed By: #### P TT, HS TROP, HEPATIC, CBC, PT, BMP, LIPASE, BNP ####[place] [id number] [facility] Creatinine [Mass/Vol] 0.67 mg/dL Low 0.70-1.30 [facility] Comment on above: Performed By: #### P TT, HS TROP, HEPATIC, CBC, PT, BMP, LIPASE, BNP ####[place] [id number] [facility] Creatinine Clr Calc Pharmacy 80.38 [facility] Comment on above: Performed By: #### P TT, HS TROP, HEPATIC, CBC, PT, BMP, LIPASE, BNP ####[place] [id number] [facility] GFR/1.73 sq M.predicted MDRD (S/P/Bld) [Vol rate/Area] mL/min/{1.73_m2} Normal [facility] Comment on above: Performed By: #### P TT, HS TROP, HEPATIC, CBC, PT, BMP, LIPASE, BNP ####[address] Glucose [Mass/Vol] 123 mg/dL High 70-100 [facility] Comment on above: Result Comment: [facility] Glucose Reference Range is dependent on time and content of last meal. Glucose of more than 200 mg/dL in a nonstressed, ambulatory subject supports the diagnosis of Diabetes Mellitus. ADA recommended reference range Performed By: #### P TT, HS TROP, HEPATIC, CBC, PT, BMP, LIPASE, BNP ####[address] Potassium [Moles/Vol] 4.1 mmol/L Normal 3.5-5.1 [facility] Comment on above: Performed By: #### P TT, HS TROP, HEPATIC, CBC, PT, BMP, LIPASE, BNP ####[address] Sodium [Moles/Vol] 138 mmol/L Normal 136-145 [facility] Comment on above: Performed By: #### P TT, HS TROP, HEPATIC, CBC, PT, BMP, LIPASE, BNP ####[address] Urea nitrogen [Mass/Vol] 10 mg/dL Normal 7-25 [facility] Comment on above: Performed By: #### P TT, HS TROP, HEPATIC, CBC, PT, BMP, LIPASE, BNP ####[address] Basophils Auto (Bld) [#/Vol] Ordered By: Anna Navarro on 05-25-2022 Basophils (Bld) [#/Vol] 0.1 10*3/uL 0.0-0.2 [facility] Basophils/100 WBC Auto (Bld) Ordered By: Anna Navarro on 05-25-2022 Basophils/100 WBC (Bld) 0.8 % . [facility] Bilirubin.direct [Mass/volum e] in Serum or PlasmaOrdered By: Anna Navarro on 05-25-2022 Bilirubin.direct [Mass/Vol] 0.50 mg/dL 0.03-0.18 [facility] Bilirubin.total [Mass/volume ] in Serum or PlasmaOrdered By: Anna Navarro on 05-25-2022 Bilirubin [Mass/Vol] 1.2 mg/dL 0.3-1.[address] [facility] CT abdomen pelvis w conon CT abdomen pelvis w con [facility] Main [place] [address] [place] [address] CT Scan Report Signed Patient: Angella Pradhan MR#: [id number] : 1945 Acct:[id number] Age/Sex: 76 / M ADM Date: 05/25/22 Loc: ER Room: Type: [facility] ER Attending Dr: Copies to: Anna Navarro DO Ordering Provider: Anna Navarro DO Date of Service: 05/25/22 CT/CT abdomen pelvis w con: epigastric abdominal pain, bradycardia, n/v CT ABDOMEN AND PELVIS WITH INTRAVENOUS CONTRAST: CLINICAL HISTORY: Lower chest/epigastric pain. Bradycardia. COMPARISON: None TECHNIQUE: Spiral images were obtained through the abdomen and pelvis following the administration of intravenous contrast. This CT exam was performed using one or more following dose reduction techniques: Automated exposure control, adjustment of the mA and/or kV according to patient size, or use of iterative reconstruction technique. FINDINGS: Lung Bases: [Mild bibasilar atelectasis/scarring] large hiatal hernia. Organs:Cholelithiasis. Liver pancreas and adrenal glands appear unremarkable. Subcentimeter low attenuating lesion is seen within the spleen too small for accurate characterization. No enhancing renal mass hydronephrosis. Abdominal aorta appears normal in caliber.[ GI: Distal stomach is grossly unremarkable. Small bowel appears nondilated. Appendix is normal. No acute colonic abnormality.[ Pelvis:[Urinary bladder is grossly unremarkable. Prostate appears enlarged.] Peritoneum/Retroperitoneum :No free air, free fluid or lymphadenopathy.[ Abd wall/Bones:Presumed postoperative changes are seen involving the right hip region with bilateral hip prostheses noted.[Osseous structures demonstrate degenerative change. CT/CT abdomen pelvis w con IMPRESSION: 1. No acute findings. 2. Large hiatal hernia. 3. Cholelithiasis. Impression dictated by: Horace Stark Jr., DBetseyOBetsey05/25/2022 8:44 AM Dictation Location: [place] [address] Transcribed By: [facility] 05/25/2244 Dictated By: Horace Stark Jr, DO 05/25/2225 Signed By: 05/25/22843 Normal [facility] Calcium [Mass/volume] in Ser um or PlasmaOrdered By: Anna Navarro on 05-25-2022 Calcium [Mass/Vol] 8.1 mg/dL 8.6-10.3 [facility] Carbon dioxide, total [Moles /volume] in Serum or PlasmaOrdered By: Anna Navarro on 05-25-2022 CO2 [Moles/Vol] 25.9 mmol/L 21.0-31.0 [facility] Chloride [Moles/volume] in S marysol or PlasmaOrdered By: Anna Navarro on 05-25-2022 Chloride [Moles/Vol] 103 mmol/L 98-107 [facility] Complete Blood Count Auto Di ffon 05-25-2022 Basophils (Bld) [#/Vol] 0.1 10*3/uL Normal 0.0-0.2 [facility] Comment on above: Result Comment: PERF ORMED BY: [facility] [address] [place] [address] PATHOLOGIST VENDING MACHINE TECHNICIAN CHELSY BHAGAT M.D. Performed By: #### P TT, HS TROP, HEPATIC, CBC, PT, BMP, LIPASE, BNP ####[facility] [id number] [place] [address] [place] Basophils/100 WBC (Bld) 0.8 % Normal . [facility] Comment on above: Performed By: #### P TT, HS TROP, HEPATIC, CBC, PT, BMP, LIPASE, BNP ####[facility] [id number] [place] [address] [place] Eosinophils (Bld) [#/Vol] 0.2 10*3/uL Normal 0.0-0.45 [facility] Comment on above: Performed By: #### P TT, HS TROP, HEPATIC, CBC, PT, BMP, LIPASE, BNP ####[address] Eosinophils/100 WBC (Bld) 1.8 % Normal . [facility] Comment on above: Performed By: #### P TT, HS TROP, HEPATIC, CBC, PT, BMP, LIPASE, BNP ####[address] Erythrocyte distribution width (RBC) [Ratio] 14.2 % Normal 12.0-14.8 [facility] Comment on above: Performed By: #### P TT, HS TROP, HEPATIC, CBC, PT, BMP, LIPASE, BNP ####[address] Hematocrit (Bld) [Volume fraction] 42.2 % Normal 38.8-50.0 [facility] Comment on above: Performed By: #### P TT, HS TROP, HEPATIC, CBC, PT, BMP, LIPASE, BNP ####[address] Hemoglobin (Bld) [Mass/Vol] 13.9 g/dL Normal 13.0-17.0 [facility] Comment on above: Performed By: #### P TT, HS TROP, HEPATIC, CBC, PT, BMP, LIPASE, BNP ####[address] Lymphocytes (Bld) [#/Vol] 1.4 10*3/uL Normal 1.00-4.8 [facility] Comment on above: Performed By: #### P TT, HS TROP, HEPATIC, CBC, PT, BMP, LIPASE, BNP ####[address] Lymphocytes/100 WBC (Bld) 15.0 % Normal . [facility] Comment on above: Performed By: #### P TT, HS TROP, HEPATIC, CBC, PT, BMP, LIPASE, BNP ####[place] [address] MCH (RBC) [Entitic mass] 29.4 pg Normal 27.5-35.2 [facility] Comment on above: Performed By: #### P TT, HS TROP, HEPATIC, CBC, PT, BMP, LIPASE, BNP ####[address] MCV (RBC) [Entitic vol] 89.0 fL Normal 83.5-101 [facility] Comment on above: Performed By: #### P TT, HS TROP, HEPATIC, CBC, PT, BMP, LIPASE, BNP ####[address] Mean Corpuscular HGB Conc 33.0 g/dL Normal 32.5-35.6 [facility] Comment on above: Performed By: #### P TT, HS TROP, HEPATIC, CBC, PT, BMP, LIPASE, BNP ####[address] Monocytes (Bld) [#/Vol] 0.9 10*3/uL High 0.0-0.8 [facility] Comment on above: Performed By: #### P TT, HS TROP, HEPATIC, CBC, PT, BMP, LIPASE, BNP ####[address] Monocytes/100 WBC (Bld) 19.35 % Normal 0.00-20.00 [facility] Comment on above: Performed By: #### P TT, HS TROP, HEPATIC, CBC, PT, BMP, LIPASE, BNP ####[address] Monocytes/100 WBC (Bld) 9.3 % Normal . [facility] Comment on above: Performed By: #### P TT, HS TROP, HEPATIC, CBC, PT, BMP, LIPASE, BNP ####[address] Neutrophils (Bld) [#/Vol] 7.0 10*3/uL Normal 1.8-7.7 [facility] Comment on above: Performed By: #### P TT, HS TROP, HEPATIC, CBC, PT, BMP, LIPASE, BNP ####[address] Neutrophils/100 WBC (Bld) 73.1 % Normal . [facility] Comment on above: Performed By: #### P TT, HS TROP, HEPATIC, CBC, PT, BMP, LIPASE, BNP ####[address] NRBC% 0.0 /100{WBC} Normal 0-0.5 [facility] Comment on above: Performed By: #### P TT, HS TROP, HEPATIC, CBC, PT, BMP, LIPASE, BNP ####[address] Platelet mean volume (Bld) [Entitic vol] 8.0 fL Normal 6.6-10.1 [facility] Comment on above: Performed By: #### P TT, HS TROP, HEPATIC, CBC, PT, BMP, LIPASE, BNP ####[address] Platelets (Bld) [#/Vol] 189 10*3/uL Normal 150-450 [facility] Comment on above: Performed By: #### P TT, HS TROP, HEPATIC, CBC, PT, BMP, LIPASE, BNP ####[address] RBC (Bld) [#/Vol] 4.74 10*6/uL Normal 3.90-5.60 [facility] Comment on above: Performed By: #### P TT, HS TROP, HEPATIC, CBC, PT, BMP, LIPASE, BNP ####[address] WBC (Bld) [#/Vol] 9.6 10*3/uL Normal 4.1-10.5 [facility] Comment on above: Performed By: #### P TT, HS TROP, HEPATIC, CBC, PT, BMP, LIPASE, BNP ####[address] Creatinine [Mass/volume] in Serum or PlasmaOrdered By: Anna Navarro on 05-25-2022 Creatinine [Mass/Vol] 0.67 mg/dL 0.70-1.30 [facility] Digoxinon 05-25-2022 Digoxin [Mass/Vol] 0.8 ng/mL Low 0.9-2.0 [facility] Comment on above: Result Comment: Last dose: - PERFORMED BY: [place] [id number] PATHOLOGIST VENDING MACHINE TECHNICIAN CHELSY BHAGAT M.D. Performed By: #### D IG ####[facility] [id number] [place] [id number] [facility] Digoxin [Mass/volume] in Ser um or PlasmaOrdered By: Anna Navarro on 05-25-2022 Digoxin [Mass/Vol] 0.8 ng/mL 0.9-2.0 [facility] Comment on above: Last dose: - ECG 12 lead ECGon 05-25-2022 ECG 12 lead ECG [facility] [address] Electrocardiograph Report Signed Patient: Angella Pradhan MR#: [id number] : 1945 Acct:[id number] Age/Sex: 76 / M ADM Date: 05/25/22 Loc: Room: [address] [place] [address] Type: ADM INOo Attending Dr: Anshu Jennings MD Ordering Provider: Anshu Jennings MD Date of Service: 05/25/22 ECG/ECG 12 lead ECG: rhythm measurement Copies to: Test Reason : Blood Pressure : / mmHG Vent. Rate : 080 BPM Atrial Rate : 080 BPM P-R Int : 290 ms QRS Dur : 084 ms QT Int : 410 ms P-R-T Axes : 080 -03 037 degrees QTc Int : 472 ms Sinus rhythm with marked sinus arrhythmia with 1st degree AV block Otherwise normal ECG When compared with ECG of 25-MAY-2022 15:47, (Unconfirmed) Previous ECG has undetermined rhythm, needs review Confirmed by PINO DUNBAR MD ([id number]) on 05/25/2022 4:54:43 PM Referred By: Electronically Signed By:PINO DUNBAR MD Transcribed By: SIMIN Signed By Pino Dunbar MD 0 05/25/22 1654 Normal [facility] ECG 12 lead ECG [facility] [address] Electrocardiograph Report Signed Patient: Angella Pradhan MR#: [id number] : 1945 Acct:[id number] Age/Sex: 76 / M ADM Date: 05/25/22 Loc: Room: [address] [place] [address] Type: ADM INOo Attending Dr: Anshu Jennings MD Ordering Provider: Anna Navarro DO Date of Service: 05/25/22 ECG/ECG 12 lead ECG: Chest Pain Copies to: Test Reason : Blood Pressure : 118/066 mmHG Vent. Rate : 068 BPM Atrial Rate : 068 BPM P-R Int : 268 ms QRS Dur : 078 ms QT Int : 466 ms P-R-T Axes : 081 001 003 degrees QTc Int : 495 ms Sinus rhythm with 1st degree AV block Prolonged QT Confirmed by Anna Navarro DO ([id number]) on 05/25/2022 4:08:10 PM Referred By: Electronically Signed By:Anna Navarro DO Transcribed By: SIMIN Signed By Anna Navarro DO 1608 Normal [facility] Eosinophils Auto (Bld) [#/Vo l]Ordered By: Anna Navarro on 05-25-2022 Eosinophils (Bld) [#/Vol] 0.2 10*3/uL 0.0-0.45 [facility] Eosinophils/100 WBC Auto (Bl d)Ordered By: Anna Navarro on 05-25-2022 Eosinophils/100 WBC (Bld) 1.8 % . [facility] Erythrocyte distribution wid th Auto (RBC) [Ratio]Ordered By: Anna Navarro on 05-25-2022 Erythrocyte distribution width (RBC) [Ratio] 14.2 % 12.0-14.8 [facility] Globulin Calc (S) [Mass/Vol] Ordered By: Anna Navarro on 05-25-2022 Globulin (S) [Mass/Vol] 2.9 g/dL [facility] Glucose [Mass/volume] in Ser um or PlasmaOrdered By: Anna Navarro on 05-25-2022 Glucose [Mass/Vol] 123 mg/dL 70-100 [facility] Comment on above: ADA recommended refe rence rangeRandom Glucose Reference Range is dependent on time and content of last meal. Glucose of more than 200 mg/dL in a nonstressed, ambulatory subject supports the diagnosis of Diabetes Mellitus. Hematocrit Auto (Bld) [Volum e fraction]Ordered By: Anna Navarro on 05-25-2022 Hematocrit (Bld) [Volume fraction] 42.2 % 38.8-50.0 [facility] Hemoglobin [Mass/volume] in BloodOrdered By: Anna Navarro on 05-25-2022 Hemoglobin (Bld) [Mass/Vol] 13.9 g/dL 13.0-17.0 [facility] Hepatic Panelon 05-25-2022 Albumin [Mass/Vol] 3.4 g/dL Low 3.5-5.7 [facility] Comment on above: Performed By: #### P TT, HS TROP, HEPATIC, CBC, PT, BMP, LIPASE, BNP ####[facility] [id number] [place] [id number] [facility] Albumin/Globulin [Mass ratio] 1.2 {ratio} Normal [facility] Comment on above: Performed By: #### P TT, HS TROP, HEPATIC, CBC, PT, BMP, LIPASE, BNP ####[facility] [id number] [place] [address] [facility] ALP [Catalytic activity/Vol] 104 U/L Normal 34-104 [facility] Comment on above: Performed By: #### P TT, HS TROP, HEPATIC, CBC, PT, BMP, LIPASE, BNP ####[facility] [id number] [place] [id number] [facility] ALT [Catalytic activity/Vol] 49 U/L Normal 7-52 [facility] Comment on above: Performed By: #### P TT, HS TROP, HEPATIC, CBC, PT, BMP, LIPASE, BNP ####[address] AST [Catalytic activity/Vol] 85 U/L High 13-39 [facility] Comment on above: Performed By: #### P TT, HS TROP, HEPATIC, CBC, PT, BMP, LIPASE, BNP ####[address] Bilirubin [Mass/Vol] 1.2 mg/dL High 0.3-1.0 [facility] Comment on above: Performed By: #### P TT, HS TROP, HEPATIC, CBC, PT, BMP, LIPASE, BNP ####[address] Bilirubin,Indirect 0.7 mg/dL Normal [facility] Comment on above: Performed By: #### P TT, HS TROP, HEPATIC, CBC, PT, BMP, LIPASE, BNP ####[address] Bilirubin.indirect [Mass/Vol] 0.50 mg/dL High 0.03-0.18 [facility] Comment on above: Performed By: #### P TT, HS TROP, HEPATIC, CBC, PT, BMP, LIPASE, BNP ####[address] Globulin (S) [Mass/Vol] 2.9 g/dL Normal [facility] Comment on above: Performed By: #### P TT, HS TROP, HEPATIC, CBC, PT, BMP, LIPASE, BNP ####[address] Protein [Mass/Vol] 6.3 g/dL Low 6.4-8.9 [facility] Comment on above: Performed By: #### P TT, HS TROP, HEPATIC, CBC, PT, BMP, LIPASE, BNP ####[address] Laboratory - CoagulationOrde red By: Anna Navarro on 05-25-2022 PT Coag (PPP) [Time] 17.0 s 9.0-12.9 [facility] Leukocytes [#/volume] correc leslie for nucleated erythrocytes in Blood by Automated counOrdered By: Anna Navarro on 05-25-2022 WBC corrected for nucl RBC Auto (Bld) [#/Vol] 9.6 10*3/uL 4.1-10.5 [facility] Lipaseon 05-25-2022 Lipase [Catalytic activity/Vol] 24.0 U/L Normal 11.0-82.0 [facility] Comment on above: Result Comment: PERF ORMED BY: [facility] [address] [place] [address] PATHOLOGIST VENDING MACHINE TECHNICIAN CHELSY BHAGAT M.D. Performed By: #### P TT, HS TROP, HEPATIC, CBC, PT, BMP, LIPASE, BNP ####[facility] [id number] [place] [address] [facility] Lipase [Enzymatic activity/v olume] in Serum or PlasmaOrdered By: Anna Navarro on 05-25-2022 Lipase [Catalytic activity/Vol] 24.0 U/L 11.0-82.0 [facility] Lymphocytes Auto (Bld) [#/Vo l]Ordered By: Anna Navarro on 05-25-2022 Lymphocytes (Bld) [#/Vol] 1.4 10*3/uL 1.00-4.8 [facility] Lymphocytes/100 WBC Auto (Bl d)Ordered By: Anna Navarro on 05-25-2022 Lymphocytes/100 WBC (Bld) 15.0 % . [facility] MCH Auto (RBC) [Entitic mass ]Ordered By: Anna Navarro on 05-25-2022 MCH (RBC) [Entitic mass] 29.4 pg 27.5-35.2 [facility] MCHC Auto (RBC) [Mass/Vol]Or dered By: Anna Navarro on 05-25-2022 MCHC (RBC) [Mass/Vol] 33.0 g/dL 32.5-35.6 [facility] MCV Auto (RBC) [Entitic vol] Ordered By: Anna Navarro on 05-25-2022 MCV (RBC) [Entitic vol] 89.0 fL 83.5-101 [facility] Monocyte distribution width [Entitic volume] in Blood by AutomatedOrdered By: Anna Navarro on 05-25-2022 Monocyte distribution width Auto (Bld) [Entitic vol] 19.35 % 0.00-20.00 [facility] Monocytes Auto (Bld) [#/Vol] Ordered By: Anna Navarro on 05-25-2022 Monocytes (Bld) [#/Vol] 0.9 10*3/uL 0.0-0.8 [facility] Monocytes/100 WBC Auto (Bld) Ordered By: Anna Navarro on 05-25-2022 Monocytes/100 WBC (Bld) 9.3 % . [facility] Natriuretic peptide B [Mass/ Vol]Ordered By: Anna Navarro on 05-25-2022 Natriuretic peptide B (Bld) [Mass/Vol] 94.0 pg/mL 5-100 [facility] Neutrophils Auto (Bld) [#/Vo l]Ordered By: Anna Navarro on 05-25-2022 Neutrophils (Bld) [#/Vol] 7.0 10*3/uL 1.8-7.7 [facility] Neutrophils/100 WBC Auto (Bl d)Ordered By: Anna Navarro on 05-25-2022 Neutrophils/100 WBC (Bld) 73.1 % . [facility] No Panel InformationOrdered By: Anna Navarro on 05-25-2022 Estimated GFR (CKD-EPI) > 60.0 mL/Min [facility] Creatinine Clearance (Chem 80.38 [facility] Nucleated erythrocytes [Pres ence] in Blood by Automated countOrdered By: Anna Navarro on 05-25-2022 Nucleated RBC Auto Ql (Bld) 0.0 /100{WBC} 0-0.5 [facility] Partial Thromboplastin Timeo n 05-25-2022 aPTT Coag (Bld) [Time] 31.8 s Normal 25.1-36.5 [facility] Comment on above: Result Comment: PERF ORMED BY: [facility] [address] [place] [address] PATHOLOGIST VENDING MACHINE TECHNICIAN CHELSY BHAGAT M.D. Performed By: #### P TT, HS TROP, HEPATIC, CBC, PT, BMP, LIPASE, BNP ####[facility] [id number] [place] [address] [facility] Platelet mean volume Auto (B ld) [Entitic vol]Ordered By: Anna Navarro on 05-25-2022 Platelet mean volume (Bld) [Entitic vol] 8.0 fL 6.6-10.1 [facility] Platelet poor plasma interna tional normalized ratio (INR) by coagulation assay (relatOrdered By: Anna Navarro on 05-25-2022 INR Coag (PPP) [Relative time] 1.5 {INR} [facility] Comment on above: INR Therapeutic Rang e A) Pre- and Peroperative OAT started two weeks before surgery. NOT HIP SURGERY: 1.5 - 2.5 HIP SURGERY: 2 - 3B) Primary and secondary prevention of venous THROMBOSIS: 2 - 3C) Active venous thrombosis, pulmonary embolismand prevention of recurrent venous thrombosis: 2 - 3D) Prevention of arterial thromboembolismincluding patients with mechanical heart valves: 3 - 4.5 Platelets Auto (Bld) [#/Vol] Ordered By: Anna Navarro on 05-25-2022 Platelets (Bld) [#/Vol] 189 10*3/uL 150-450 [facility] Potassium [Moles/volume] in Serum or PlasmaOrdered By: Anna Navarro on 05-25-2022 Potassium [Moles/Vol] 4.1 mmol/L 3.5-5.1 [facility] Protein [Mass/volume] in Ser um or PlasmaOrdered By: Anna Navarro on 05-25-2022 Protein [Mass/Vol] 6.3 g/dL 6.4-8.9 [facility] Prothrombin Time INRon 05-25 INR Coag (PPP) [Relative time] 1.5 {INR} Normal [facility] Comment on above: Result Comment: INR Therapeutic Range A) Pre- and Peroperative OAT started two weeks before surgery. NOT HIP SURGERY: 1.5 - 2.5 HIP SURGERY: 2 - 3 B) Primary and secondary prevention of venous THROMBOSIS: 2 - 3 C) Active venous thrombosis, pulmonary embolism and prevention of recurrent venous thrombosis: 2 - 3 D) Prevention of arterial thromboembolism including patients with mechanical heart valves: 3 - 4.5 Performed By: #### P TT, HS TROP, HEPATIC, CBC, PT, BMP, LIPASE, BNP ####[facility] [place] [address] [facility] PT Coag (PPP) [Time] 17.0 s High 9.0-12.9 [facility] Comment on above: Performed By: #### P TT, HS TROP, HEPATIC, CBC, PT, BMP, LIPASE, BNP ####[place] [id number] [place] [id number] [facility] RBC Auto (Bld) [#/Vol]Ordere d By: Anna Navarro on 05-25-2022 RBC (Bld) [#/Vol] 4.74 10*6/uL 3.90-5.60 [facility] Serum or plasma albumin/glob ulin mass ratioOrdered By: Anna Navarro on 05-25-2022 Albumin/Globulin [Mass ratio] 1.2 {ratio} [facility] Serum or plasma anion gap de terminationOrdered By: Anna Navarro on 05-25-2022 Anion gap [Moles/Vol] 13.2 mmol/L 6.0-15.0 [facility] Serum or plasma non-glucuron idated bilirubin measurement (mass/volume)Ordered By: Anna Navarro on 05-25-2022 Bilirubin.indirect [Mass/Vol] 0.7 mg/dL [facility] Sodium [Moles/volume] in Ser um or PlasmaOrdered By: Anna Navarro on 05-25-2022 Sodium [Moles/Vol] 138 mmol/L 136-145 [facility] Troponin I High Sensitivityo n 05-25-2022 Troponin I High Sensitivity 15.2 pg/mL Normal 0.0-20.0 [facility] Comment on above: Result Comment: PERF ORMED BY: [facility] [address] [place] [address] PATHOLOGIST VENDING MACHINE TECHNICIAN CHELSY BHAGAT M.D. Performed By: #### A ERC #### [facility] [address] [place] [id number] [facility] Troponin I High Sensitivity 7.2 pg/mL Normal 0.0-20.0 [facility] Comment on above: Result Comment: PERF ORMED BY: [place] [address] PATHOLOGIST VENDING MACHINE TECHNICIAN CHELSY BHAGAT M.D. Performed By: #### H S TROP #### [facility] [address] [place] [address] Troponin I High Sensitivity 7.6 pg/mL Normal 0.0-20.0 [facility] Comment on above: Result Comment: PERF ORMED BY: [place] [address] PATHOLOGIST VENDING MACHINE TECHNICIAN CHELSY BHAGAT M.D. Performed By: #### P TT, HS TROP, HEPATIC, CBC, PT, BMP, LIPASE, BNP ####[facility] [id number] [place] [address] [place] Troponin I.cardiac [Mass/vol ume] in Serum or Plasma by Detection limit <= 0.01 ng/Ordered By: Anshu Jennings on 05-25-2022 Troponin I.cardiac DL <= 0.01 ng/mL [Mass/Vol] 15.2 pg/mL 0.0-20.0 [facility] Troponin I.cardiac [Mass/vol ume] in Serum or Plasma by Detection limit <= 0.01 ng/Ordered By: Anna Navarro on 05-25-2022 Troponin I.cardiac DL <= 0.01 ng/mL [Mass/Vol] 7.2 pg/mL 0.0-20.0 [facility] US gall bladderon 05-25-2022 US gall bladder [facility] Main [place] [address] [place] [address] Ultrasound Report Signed Patient: Angella Pradhan MR#: [id number] : 1945 Acct:[id number] Age/Sex: 76 / M ADM Date: 05/25/22 Loc: Room: [address] [place] [address] Type: ADM INOo Attending Dr: Anshu Jennings MD Ordering Provider: Anshu Jennings MD Date of Service: 05/25/22 US/US gall bladder: epigastric pain, rule out choledocholithiasis Copies to: Anshu Jennings MD LIMITED ABDOMINAL ULTRASOUND: CLINICAL HISTORY: Epigastric pain. COMPARISON: CT abdomen and pelvis 05/25/2022 TECHNIQUE: Grayscale and color Doppler images of the right upper quadrant organs were obtained. FINDINGS: Pancreas: Not visualized. Liver: No focal mass or intrahepatic ductal dilatation. Hepatopedal flow is seen within the portal vein. Gallbladder: Cholelithiasis with gallbladder wall thickening. Small amount of pericholecystic fluid is noted. Negative Joe's sign. CBD: 5.6 mm US/US gall bladder IMPRESSION: CHOLELITHIASIS WITH GALLBLADDER WALL THICKENING AND SMALL AMOUNT OF PERICHOLECYSTIC FLUID. IF DEVELOPING ACUTE CHOLECYSTITIS IS OF CLINICAL CONCERN, FURTHER EVALUATION WITH HIDA SCAN IS RECOMMENDED.. Impression dictated by: Horace Stark Jr., DBetseyOBetsey05/25/2022 2:51 PM Dictation Location: [place] [address] Tech: Debbie Kasper Transcribed By: JOSE 05/25/22 1451 Dictated By: Horace Stark Jr, DO 05/25/22 1449 Signed By: 05/25/22 1451 Normal [facility] Urea nitrogen [Mass/volume] in Serum or PlasmaOrdered By: Anna Navarro on 05-25-2022 Urea nitrogen [Mass/Vol] 10 mg/dL 7-25 [facility] WBC Auto (Bld) [#/Vol]Ordere d By: Anna Navarro on 05-25-2022 WBC (Bld) [#/Vol] 9.6 10*3/uL 4.1-10.5 [facility] XR chest 1V portableon 05-25 XR chest 1V portable [facility] [place] [address] XRay Report Signed Patient: Angella Pradhan MR#: [id number] : 1945 Acct:[id number] Age/Sex: 76 / M ADM Date: 05/25/22 Loc: ER Room: Type: [facility] ER Attending Dr: Copies to: Anna Navarro DO Ordering Provider: Anna Navarro DO Date of Service: 05/25/22 XR/XR chest 1V portable: Chest Pain SINGLE VIEW CHEST CLINICAL HISTORY: Chest pain for 3 hours. Low heart rate. COMPARISON: Chest 05/24/2021 FINDINGS: Low lung volumes. Heart and mediastinal structures appear unchanged. Left basilar atelectasis. No pneumothorax, pleural effusion or free air. XR/XR chest 1V portable IMPRESSION: LOW LUNG VOLUMES WITH LEFT BASILAR ATELECTASIS. Impression dictated by: Horace Stark Jr., D.O.05/25/2022 9:54 AM Dictation Location: [place] [address] Transcribed By: [facility] 05/25/22 0954 Dictated By: Horace Stark Jr, DO 05/25/22 0954 Signed By: 05/25/22 0954 Normal [facility] COVID-19 [facility]ATION[facility] 04-02-2022 SARS-CoV-2 (COVID-19) RNA VITA+probe Ql (Unsp spec) Negative Normal Negative [facility] Comment on above: Order Comment: Healt hcare Worker?: N Result Comment: Testing for SARS-CoV-2 by RT-PCR This test was developed and its performance characteristics determined by [employer] ([facility]) and validated at the [facility]. This test has not been FDA cleared or approved. This test has been authorized by FDA under an Emergency Use Authorization (EUA). This test has been validated in accordance with the FDA's Guidance Document (Policy for Diagnostics Testing in Laboratories Certified to Perform High Complexity Testing under CLIA prior to Emergency Use Authorization for Coronavirus Disease-2019 during the Public Health Emergency) issued on May 10, 2019. This test is only authorized for the duration of time the declaration that circumstances exist justifying the authorization of the emergency use of in vitro diagnostic tests for detection of SARS-CoV-2 virus and/or diagnosis of COVID-19 infection under section 564(b)(1) of the Act, 21 U.S.C. 360bbb-3(b)(1), unless the authorization is terminated or revoked sooner. PERFORMED BY: [facility] [address] [place] [address] PATHOLOGIST VENDING MACHINE TECHNICIAN CHELSY BHAGAT M.D. Performed By: #### B ILID, MG, CMP #### [facility] [address] COVID-19 Positive/NegativeOr dered By: Horace Palafox on 04-02-2022 SARS-CoV-2 (COVID-19) N gene VITA+probe Ql (Resp) Negative Negative [facility] Comment on above: Testing for SARS-CoV -2 by RT-PCRThis test was developed and its performance characteristics determined by [employer] ([facility]) and validated at the [facility]. This test has not been FDA cleared or approved. This test has been authorized by FDA under an Emergency Use Authorization (EUA). This test has been validated in accordance with the FDA's Guidance Document (Policy for Diagnostics Testing in Laboratories Certified to Perform High Complexity Testing under CLIA prior to Emergency Use Authorization for Coronavirus Disease-2019 during the Public Health Emergency) issued on May 10, 2019. This test is only authorized for the duration of time the declaration that circumstances exist justifying the authorization of the emergency use of in vitro diagnostic tests for detection of SARS-CoV-2 virus and/or diagnosis of COVID-19 infection under section 564(b)(1) of the Act, 21 U.S.C. 360bbb-3(b)(1), unless the authorization is terminated or revoked sooner. Glucose Glucometer (BldC) [M ass/Vol]Ordered By: Horace Palafox on 03-31-2022 Glucose [Mass/Vol] 164 mg/dL [facility] Comment on above: Random Glucose Refer ence Range is dependent on time and content of last meal. Glucose of more than 200 mg/dL in a nonstressed, ambulatory subject supports the diagnosis of Diabetes Mellitus. Glucose Poct Glucometerson 0 03-31-2022 Glucose [Mass/Vol] 164 mg/dL Normal [facility] Comment on above: Result Comment: [facility] Glucose Reference Range is dependent on time and content of last meal. Glucose of more than 200 mg/dL in a nonstressed, ambulatory subject supports the diagnosis of Diabetes Mellitus. PERFORMED BY: [place] [address] PATHOLOGIST VENDING MACHINE TECHNICIAN CHELSY BHAGAT M.D. Performed By: #### G AVI ####Point of Care testing, Basic Metabolic Panelon 03-11 Anion gap [Moles/Vol] 10.1 mmol/L Normal 6.0-15.0 [facility] Comment on above: Performed By: #### B ILID, MG, CMP #### [facility] [address] Calcium [Mass/Vol] 8.3 mg/dL Normal 8.2-10.2 [facility] Comment on above: Performed By: #### B ILID, MG, CMP #### [facility] [address] Chloride [Moles/Vol] 102 mmol/L Normal 95-114 [facility] Comment on above: Performed By: #### B ILID, MG, CMP #### [facility] [address] CO2 [Moles/Vol] 27.2 mmol/L Normal 22.0-30.0 [facility] Comment on above: Performed By: #### B ILID, MG, CMP #### [facility] [address] [place] [address] [place] Creatinine [Mass/Vol] 0.72 mg/dL Normal 0.64-1.27 [facility] Comment on above: Performed By: #### B ILID, MG, CMP #### [facility] [address] [place] [address] [place] Creatinine Clr Calc Pharmacy 78.08 Normal [facility] Comment on above: Result Comment: PERF ORMED BY: [facility] [address] [place] [address] PATHOLOGIST VENDING MACHINE TECHNICIAN JIANLAN SUN M.D. Performed By: #### B ILID, MG, CMP #### [facility] [address] Estimated GFR ( Altagracia > 60 [facility] Comment on above: Result Comment: GFR estimated reference range: According to KDOQI guidelines, <60 ml/min/1.73m2 is sufficient to diagnose a patient with chronic kidney disease. Performed By: #### B ILID, MG, CMP #### [facility] [address] Estimated GFR (Non- Am > 60 [facility] Comment on above: Performed By: #### B ILID, MG, CMP #### [facility] [address] Glucose [Mass/Vol] 110 mg/dL High 70-100 [facility] Comment on above: Result Comment: [place] [facility] Glucose Reference Range is dependent on time and content of last meal. Glucose of more than 200 mg/dL in a nonstressed, ambulatory subject supports the diagnosis of Diabetes Mellitus. ADA recommended reference range Performed By: #### B ILID, MG, CMP #### [address] Potassium [Moles/Vol] 4.3 mmol/L Normal 3.5-5.1 [facility] Comment on above: Performed By: #### B ILID, MG, CMP #### [facility] [address] Sodium [Moles/Vol] 135 mmol/L Low 136-146 [facility] Comment on above: Performed By: #### B ILID, MG, CMP #### [facility] [address] Urea nitrogen [Mass/Vol] 10 mg/dL Normal 9-23 [facility] Comment on above: Performed By: #### B ILID, MG, CMP #### [facility] [address] Basophils Auto (Bld) [#/Vol] Ordered By: Cesilia Rosales on 03-29-2022 Basophils (Bld) [#/Vol] 0.1 10*3/uL 0.0-0.2 [facility] Basophils/100 WBC Auto (Bld) Ordered By: Cesilia Rosales on 03-29-2022 Basophils/100 WBC (Bld) 0.6 % . [facility] Calcium [Mass/volume] in Ser um or PlasmaOrdered By: Cesilia Rosales on 03-29-2022 Calcium [Mass/Vol] 8.3 mg/dL 8.2-10.2 [facility] Carbon dioxide, total [Moles /volume] in Serum or PlasmaOrdered By: Cesilia Rosales on 03-29-2022 CO2 [Moles/Vol] 27.2 mmol/L 22.0-30.0 [facility] Chloride [Moles/volume] in S marysol or PlasmaOrdered By: Cesilia Rosales on 03-29-2022 Chloride [Moles/Vol] 102 mmol/L 95-114 [facility] Clostridioides difficile tox in B tcdB gene [Presence] in Stool by VITA with probe deteOrdered By: Cesilia Rosales on 03-29-2022 C. difficile toxin B tcdB gene VITA+probe Ql (Stl) Positive Negative [facility] Comment on above: Results calledat 005 4 on 03/30/22 Testing performed by RT-PCR Clostridium Difficileon 03-11 Clostridium Difficile Positive Normal Negative [facility] Comment on above: Order Comment: > or = to 3 loose/watery stools in the last 24 HRS? Y Is patient on promotility agents or tube feeding? N Result Comment: Resu lts called at 0054 on 03/30/22 Testing performed by RT-PCR PERFORMED BY: [place] [address] PATHOLOGIST VENDING MACHINE TECHNICIAN CHELSY BHAGAT M.D. Performed By: #### C DT #### [address] Complete Blood Count Auto Di ffon 03-29-2022 Basophils (Bld) [#/Vol] 0.1 10*3/uL Normal 0.0-0.2 [facility] Comment on above: Result Comment: PERF ORMED BY: [place] [address] PATHOLOGIST VENDING MACHINE TECHNICIAN CHELSY BHAGAT M.D. Performed By: #### B ILID, MG, CMP #### [address] Basophils/100 WBC (Bld) 0.6 % Normal . [facility] Comment on above: Performed By: #### B ILID, MG, CMP #### [address] Eosinophils (Bld) [#/Vol] 0.4 10*3/uL Normal 0.0-0.45 [facility] Comment on above: Performed By: #### B ILID, MG, CMP #### [address] Eosinophils/100 WBC (Bld) 3.8 % Normal . [facility] Comment on above: Performed By: #### B ILID, MG, CMP #### [address] Erythrocyte distribution width (RBC) [Ratio] 13.9 % Normal 12.0-14.8 [facility] Comment on above: Performed By: #### B ILID, MG, CMP #### [address] Hematocrit (Bld) [Volume fraction] 30.9 % Low 38.8-50.0 [facility] Comment on above: Performed By: #### B ILID, MG, CMP #### [place] [address] [place] Hemoglobin (Bld) [Mass/Vol] 10.1 g/dL Low 13.0-17.0 [facility] Comment on above: Performed By: #### B ILID, MG, CMP #### [facility] [address] [place] [address] [place] Lymphocytes (Bld) [#/Vol] 1.6 10*3/uL Normal 1.00-4.8 [facility] Comment on above: Performed By: #### B ILID, MG, CMP #### [facility] [address] [place] [address] [place] Lymphocytes/100 WBC (Bld) 14.1 % Normal . [facility] Comment on above: Performed By: #### B ILID, MG, CMP #### [facility] [address] MCH (RBC) [Entitic mass] 29.6 pg Normal 27.5-35.2 [facility] Comment on above: Performed By: #### B ILID, MG, CMP #### [facility] [address] MCV (RBC) [Entitic vol] 90.1 fL Normal 83.5-101 [facility] Comment on above: Performed By: #### B ILID, MG, CMP #### [facility] [address] Mean Corpuscular HGB Conc 32.9 g/dL Normal 32.5-35.6 [facility] Comment on above: Performed By: #### B ILID, MG, CMP #### [facility] [address] [place] [address] [place] Monocytes (Bld) [#/Vol] 1.8 10*3/uL High 0.0-0.8 [facility] Comment on above: Performed By: #### B ILID, MG, CMP #### [facility] [address] [place] [address] [place] Monocytes/100 WBC (Bld) 16.3 % Normal . [facility] Comment on above: Performed By: #### B ILID, MG, CMP #### [facility] [address] [place] [address] [place] Neutrophils (Bld) [#/Vol] 7.4 10*3/uL Normal 1.8-7.7 [facility] Comment on above: Performed By: #### B ILID, MG, CMP #### [facility] [address] [place] [address] [place] Neutrophils/100 WBC (Bld) 65.2 % Normal . [facility] Comment on above: Performed By: #### B ILID, MG, CMP #### [facility] [address] NRBC% 0.1 /100{WBC} Normal 0-0.5 [facility] Comment on above: Performed By: #### B ILID, MG, CMP #### [facility] [address] [place] [address] Platelet mean volume (Bld) [Entitic vol] 7.1 fL Normal 6.6-10.1 [facility] Comment on above: Performed By: #### B ILID, MG, CMP #### [address] Platelets (Bld) [#/Vol] 319 10*3/uL Normal 150-450 [facility] Comment on above: Performed By: #### B ILID, MG, CMP #### [facility] [address] [place] [address] RBC (Bld) [#/Vol] 3.43 10*6/uL Low 3.90-5.60 [facility] Comment on above: Performed By: #### B ILID, MG, CMP #### [address] WBC (Bld) [#/Vol] 11.3 10*3/uL High 4.1-10.5 [facility] Comment on above: Performed By: #### B ILID, MG, CMP #### [address] Creatinine and Glomerular fi ltration rate.predicted panel (S/P/Bld)Ordered By: Cesilia Rosales on 03-29-2022 Creatinine [Mass/Vol] 0.72 mg/dL 0.64-1.27 [facility] Eosinophils Auto (Bld) [#/Vo l]Ordered By: Cesilia Rosales on 03-29-2022 Eosinophils (Bld) [#/Vol] 0.4 10*3/uL 0.0-0.45 [facility] Eosinophils/100 WBC Auto (Bl d)Ordered By: Cesilia Rosales on 03-29-2022 Eosinophils/100 WBC (Bld) 3.8 % . [facility] Erythrocyte distribution wid th Auto (RBC) [Ratio]Ordered By: Cesilia Rosales on 03-29-2022 Erythrocyte distribution width (RBC) [Ratio] 13.9 % 12.0-14.8 [facility] Estimated glomerular filtrat ion rate (GFR) non- AmericanOrdered By: Cesilia Rosales on 03-29-2022 GFR/1.73 sq M.predicted among non-blacks MDRD (S/P/Bld) [Vol rate/Area] > 60 mL/Min [facility] Glucose [Mass/volume] in Ser um or PlasmaOrdered By: Cesilia Rosales on 03-29-2022 Glucose [Mass/Vol] 110 mg/dL 70-100 [facility] Comment on above: ADA recommended refe rence rangeRandom Glucose Reference Range is dependent on time and content of last meal. Glucose of more than 200 mg/dL in a nonstressed, ambulatory subject supports the diagnosis of Diabetes Mellitus. Hematocrit Auto (Bld) [Volum e fraction]Ordered By: Cesilia Rosales on 03-29-2022 Hematocrit (Bld) [Volume fraction] 30.9 % 38.8-50.0 [facility] Hemoglobin [Mass/volume] in BloodOrdered By: Cesilia Rosales on 03-29-2022 Hemoglobin (Bld) [Mass/Vol] 10.1 g/dL 13.0-17.0 [facility] Leukocytes [#/volume] correc leslie for nucleated erythrocytes in Blood by Automated counOrdered By: Cesilia Rosales on 03-29-2022 WBC corrected for nucl RBC Auto (Bld) [#/Vol] 11.3 10*3/uL 4.1-10.5 [facility] Lymphocytes Auto (Bld) [#/Vo l]Ordered By: Cesilia Rosales on 03-29-2022 Lymphocytes (Bld) [#/Vol] 1.6 10*3/uL 1.00-4.8 [facility] Lymphocytes/100 WBC Auto (Bl d)Ordered By: Cesilia Rosales on 03-29-2022 Lymphocytes/100 WBC (Bld) 14.1 % . [facility] MCH Auto (RBC) [Entitic mass ]Ordered By: Cesilia Rosales on 03-29-2022 MCH (RBC) [Entitic mass] 29.6 pg 27.5-35.2 [facility] MCHC Auto (RBC) [Mass/Vol]Or dered By: Cesilia Rosales on 03-29-2022 MCHC (RBC) [Mass/Vol] 32.9 g/dL 32.5-35.6 [facility] MCV Auto (RBC) [Entitic vol] Ordered By: Cesilia Rosales on 03-29-2022 MCV (RBC) [Entitic vol] 90.1 fL 83.5-101 [facility] Monocytes Auto (Bld) [#/Vol] Ordered By: Cesilia Rosales on 03-29-2022 Monocytes (Bld) [#/Vol] 1.8 10*3/uL 0.0-0.8 [facility] Monocytes/100 WBC Auto (Bld) Ordered By: Cesilai Rosales on 03-29-2022 Monocytes/100 WBC (Bld) 16.3 % . [facility] Neutrophils Auto (Bld) [#/Vo l]Ordered By: Cesilia Rosales on 03-29-2022 Neutrophils (Bld) [#/Vol] 7.4 10*3/uL 1.8-7.7 [facility] Neutrophils/100 WBC Auto (Bl d)Ordered By: Cesilia Rosales on 03-29-2022 Neutrophils/100 WBC (Bld) 65.2 % . [facility] No Panel InformationOrdered By: Cesilia Rosales on 03-29-2022 Estimated GFR () > 60 mL/Min [facility] Comment on above: GFR estimated refere nce range: According to KDOQI guidelines, <60 ml/min/1.73m2 is sufficient to diagnose a patient with chronic kidney disease. Pharmacy Creatinine Clearance (Chem 78.08 [facility] Nucleated erythrocytes [Pres ence] in Blood by Automated countOrdered By: eCsilia Rosales on 03-29-2022 Nucleated RBC Auto Ql (Bld) 0.1 /100{WBC} 0-0.5 [facility] Platelet mean volume Auto (B ld) [Entitic vol]Ordered By: Cesilia Rosales on 03-29-2022 Platelet mean volume (Bld) [Entitic vol] 7.1 fL 6.6-10.1 [facility] Platelets Auto (Bld) [#/Vol] Ordered By: Cesilia Rosales on 03-29-2022 Platelets (Bld) [#/Vol] 319 10*3/uL 150-450 [facility] Potassium [Moles/volume] in Serum or PlasmaOrdered By: Cesilia Rosales on 03-29-2022 Potassium [Moles/Vol] 4.3 mmol/L 3.5-5.1 [facility] RBC Auto (Bld) [#/Vol]Ordere d By: Cesilia Rosales on 03-29-2022 RBC (Bld) [#/Vol] 3.43 10*6/uL 3.90-5.60 [facility] Serum or plasma anion gap de terminationOrdered By: Cesilia Rosales on 03-29-2022 Anion gap [Moles/Vol] 10.1 mmol/L 6.0-15.0 [facility] Sodium [Moles/volume] in Ser um or PlasmaOrdered By: Cesilia Rosales on 03-29-2022 Sodium [Moles/Vol] 135 mmol/L 136-146 [facility] Urea nitrogen [Mass/volume] in Serum or PlasmaOrdered By: Cesilia Rosales on 03-29-2022 Urea nitrogen [Mass/Vol] 10 mg/dL 9-23 [facility] WBC Auto (Bld) [#/Vol]Ordere d By: Cesilia Rosales on 03-29-2022 WBC (Bld) [#/Vol] 11.3 10*3/uL 4.1-10.5 [facility] US venous duplex LE BIon US venous duplex LE BI [facility] [place] [address] Ultrasound Report Signed Patient: Angella Pradhan MR#: [id number] : 1945 Acct:[id number] Age/Sex: 76 / M ADM Date: 03/22/22 Loc: Room: [address] [place] [address] Type: ADM IN Attending Dr: Horace Palafox MD Ordering Provider: Horace Palafox MD Date of Service: 03/26/22 US/US venous duplex LE BI: pain, swelling Copies to: Horace Palafox MD BILATERAL LOWER EXTREMITY VENOUS DUPLEX INDICATION: Swollen legs PROCEDURE: Color-flow duplex scanning is used to interrogate the deep venous system of the right and left lower extremities. The common femoral vein, femoral vein and popliteal vein show good compressibility with normal proximal and distal augmentation. The posterior tibial and peroneal veins are compressible. US/US venous duplex LE BI IMPRESSION: NO EVIDENCE FOR DEEP VEIN THROMBOSIS OR PROXIMAL SUPERFICIAL THROMBOPHLEBITIS IN THE RIGHT OR LEFT LOWER EXTREMITY. Impression dictated by: Merritt Mcneil M.D.03/27/2022 8:48 AM Dictation Location: [place] [address] Tech: Susy Glass Transcribed By: JOSE 03/27/2248 Dictated By: Merritt Mcneil MD 03/27/2248 Signed By: 03/27/22847 Normal [facility] Albumin [Mass/volume] in Ser um or PlasmaOrdered By: Horace Palafox on 03-23-2022 Albumin [Mass/Vol] 2.4 g/dL 3.2-5.5 [facility] Alkaline phosphatase [Enzyma tic activity/volume] in Serum or PlasmaOrdered By: Horace Palafox on 03-23-2022 ALP [Catalytic activity/Vol] 57 U/L 32-92 [facility] Aspartate aminotransferase [ Enzymatic activity/volume] in Serum or PlasmaOrdered By: Horace Palafox on 03-23-2022 AST [Catalytic activity/Vol] 24 U/L 10-42 [facility] Bilirubin.total [Mass/volume ] in Serum or PlasmaOrdered By: Horace Palafox on 03-23-2022 Bilirubin [Mass/Vol] 0.5 mg/dL 0.3-1.2 [facility] Complete Blood Count Auto Di ffon 03-23-2022 Basophils (Bld) [#/Vol] 0.1 10*3/uL Normal 0.0-0.2 [facility] Comment on above: Result Comment: PERF ORMED BY: [place] [address] PATHOLOGIST VENDING MACHINE TECHNICIAN CHELSY BHAGAT M.D. Performed By: #### B ILID, MG, CMP #### [facility] [address] [place] [address] Basophils/100 WBC (Bld) 1.1 % Normal . [facility] Comment on above: Performed By: #### B ILID, MG, CMP #### [address] Eosinophils (Bld) [#/Vol] 0.5 10*3/uL High 0.0-0.45 [facility] Comment on above: Performed By: #### B ILID, MG, CMP #### [address] Eosinophils/100 WBC (Bld) 6.3 % Normal . [facility] Comment on above: Performed By: #### B ILID, MG, CMP #### [address] Erythrocyte distribution width (RBC) [Ratio] 14.0 % Normal 12.0-14.8 [facility] Comment on above: Performed By: #### B ILID, MG, CMP #### [address] Hematocrit (Bld) [Volume fraction] 31.6 % Low 38.8-50.0 [facility] Comment on above: Performed By: #### B ILID, MG, CMP #### [facility] [address] [place] [address] [place] Hemoglobin (Bld) [Mass/Vol] 10.4 g/dL Low 13.0-17.0 [facility] Comment on above: Performed By: #### B ILID, MG, CMP #### [facility] [address] [place] [address] [place] Lymphocytes (Bld) [#/Vol] 1.3 10*3/uL Normal 1.00-4.8 [facility] Comment on above: Performed By: #### B ILID MG, CMP #### [address] Lymphocytes/100 WBC (Bld) 16.6 % Normal . [facility] Comment on above: Performed By: #### B ILID MG, CMP #### [address] MCH (RBC) [Entitic mass] 29.6 pg Normal 27.5-35.2 [facility] Comment on above: Performed By: #### B ILIMehdi MG, CMP #### [address] MCV (RBC) [Entitic vol] 90.2 fL Normal 83.5-101 [facility] Comment on above: Performed By: #### B ILID MG, CMP #### [address] Mean Corpuscular HGB Conc 32.8 g/dL Normal 32.5-35.6 [facility] Comment on above: Performed By: #### B ILID MG, CMP #### [address] Monocytes (Bld) [#/Vol] 1.1 10*3/uL High 0.0-0.8 [facility] Comment on above: Performed By: #### B ILID, MG, CMP #### [place] [address] [place] Monocytes/100 WBC (Bld) 14.2 % Normal . [facility] Comment on above: Performed By: #### B ILID, MG, CMP #### [address] Neutrophils (Bld) [#/Vol] 4.9 10*3/uL Normal 1.8-7.7 [facility] Comment on above: Performed By: #### B ILID, MG, CMP #### [facility] [address] Neutrophils/100 WBC (Bld) 61.8 % Normal . [facility] Comment on above: Performed By: #### B ILID, MG, CMP #### [facility] [address] NRBC% 0.0 /100{WBC} Normal 0-0.5 [facility] Comment on above: Performed By: #### B ILID, MG, CMP #### [facility] [address] Platelet mean volume (Bld) [Entitic vol] 8.4 fL Normal 6.6-10.1 [facility] Comment on above: Performed By: #### B ILID, MG, CMP #### [address] Platelets (Bld) [#/Vol] 208 10*3/uL Normal 150-450 [facility] Comment on above: Performed By: #### B ILID, MG, CMP #### [address] RBC (Bld) [#/Vol] 3.50 10*6/uL Low 3.90-5.60 [facility] Comment on above: Performed By: #### B ILID, MG, CMP #### [address] WBC (Bld) [#/Vol] 7.9 10*3/uL Normal 4.1-10.5 [facility] Comment on above: Performed By: #### B ILID, MG, CMP #### [address] Comprehensive Metabolic Pane jas 03-23-2022 Albumin [Mass/Vol] 2.4 g/dL Low 3.2-5.5 [facility] Comment on above: Performed By: #### B ILID, MG, CMP #### [address] Albumin/Globulin [Mass ratio] 0.9 {ratio} Normal [facility] Comment on above: Performed By: #### B ILID, MG, CMP #### [facility] [address] [address] ALP [Catalytic activity/Vol] 57 U/L Normal 32-92 [facility] Comment on above: Performed By: #### B ILID, MG, CMP #### [facility] [address] ALT [Catalytic activity/Vol] 11 U/L Normal 10-60 [facility] Comment on above: Performed By: #### B ILID, MG, CMP #### [facility] [address] Anion gap [Moles/Vol] 8.4 mmol/L Normal 6.0-15.0 [facility] Comment on above: Performed By: #### B ILID, MG, CMP #### [facility] [address] AST [Catalytic activity/Vol] 24 U/L Normal 10-42 [facility] Comment on above: Performed By: #### B ILID, MG, CMP #### [facility] [address] Bilirubin [Mass/Vol] 0.5 mg/dL Normal 0.3-1.2 [facility] Comment on above: Performed By: #### B ILID, MG, CMP #### [facility] [address] [place] [address] [place] Calcium [Mass/Vol] 8.1 mg/dL Low 8.2-10.2 [facility] Comment on above: Performed By: #### B ILID, MG, CMP #### [facility] [address] [place] [address] [place] Chloride [Moles/Vol] 103 mmol/L Normal 95-114 [facility] Comment on above: Performed By: #### B ILID, MG, CMP #### [facility] [address] [place] [address] [place] CO2 [Moles/Vol] 26.4 mmol/L Normal 22.0-30.0 [facility] Comment on above: Performed By: #### B ILID, MG, CMP #### [facility] [address] Creatinine [Mass/Vol] 0.85 mg/dL Normal 0.64-1.27 [facility] Comment on above: Performed By: #### B ILID, MG, CMP #### [facility] [address] Creatinine Clr Calc Pharmacy 72.84 [facility] Comment on above: Performed By: #### B ILID, MG, CMP #### [facility] [address] Estimated GFR ( Altagracia > 60 [facility] Comment on above: Result Comment: GFR estimated reference range: According to KDOQI guidelines, <60 ml/min/1.73m2 is sufficient to diagnose a patient with chronic kidney disease. Performed By: #### B ILID, MG, CMP #### [address] Estimated GFR (Non- Am > 60 [facility] Comment on above: Performed By: #### B ILID, MG, CMP #### [address] Globulin (S) [Mass/Vol] 2.8 g/dL [facility] Comment on above: Performed By: #### B ILID, MG, CMP #### [facility] [address] [place] [address] Glucose [Mass/Vol] 110 mg/dL High 70-100 [facility] Comment on above: Result Comment: [place] Glucose Reference Range is dependent on time and content of last meal. Glucose of more than 200 mg/dL in a nonstressed, ambulatory subject supports the diagnosis of Diabetes Mellitus. ADA recommended reference range Performed By: #### B ILID, MG, CMP #### [address] Potassium [Moles/Vol] 3.8 mmol/L Normal 3.5-5.1 [facility] Comment on above: Performed By: #### B ILID, MG, CMP #### [facility] [address] Protein [Mass/Vol] 5.2 g/dL Low 6.1-7.9 [facility] Comment on above: Performed By: #### B ILID, MG, CMP #### [facility] [address] Sodium [Moles/Vol] 134 mmol/L Low 136-146 [facility] Comment on above: Performed By: #### B ILID, MG, CMP #### [facility] [address] Urea nitrogen [Mass/Vol] 9 mg/dL Normal 9-23 [facility] Comment on above: Performed By: #### B ILID, MG, CMP #### [facility] [address] Globulin Calc (S) [Mass/Vol] Ordered By: Horace Palafox on 03-23-2022 Globulin (S) [Mass/Vol] 2.8 g/dL [facility] Prealbuminon 03-23-2022 Prealbumin [Mass/Vol] 12.0 mg/dL Low 18.0-38.0 [facility] Comment on above: Result Comment: PERF ORMED BY: [place] [address] PATHOLOGIST VENDING MACHINE TECHNICIAN CHELSY BHAGAT M.D. Performed By: #### B ILID, MG, CMP #### [facility] [address] [place] [address] [place] Prealbumin [Mass/volume] in Serum or PlasmaOrdered By: Horace Palafox on 03-23-2022 Prealbumin [Mass/Vol] 12.0 mg/dL 18.0-38.0 [facility] Protein [Mass/volume] in Ser um or PlasmaOrdered By: Horace Palafox on 03-23-2022 Protein [Mass/Vol] 5.2 g/dL 6.1-7.9 [facility] Serum or plasma alanine miranda otransferase measurement without P-5'-P (enzymatic activiOrdered By: Horace Palafox on 03-23-2022 ALT No additional P-5'-P [Catalytic activity/Vol] 11 U/L 10-60 [facility] Serum or plasma albumin/glob ulin mass ratioOrdered By: Horace Palafox on 03-23-2022 Albumin/Globulin [Mass ratio] 0.9 {ratio} [facility] Lab Reportson 03-15-2022 Lab Reports [id number]:127 Normal [facility] Lab Reports [id number]#1.00CD:127 Normal [facility] Lab Reports [id number]#1.00CD:127 Normal [facility] Lab Reports [id number]#1.00CD:127 Normal [facility] Lab Reports [id number]#[id number]:127 Normal [facility] CULTURE URINEon 03-14-2022 CULTURE URINE Isolate 1 Enterobacter cloacae <10,000 cfu/mL of Isolate 2 Pseudomonas aeruginosa 50,000 cfu/mL of ORGANISM 1 Enterobacter cloacae ANTIBIOTIC M.I.C RX STATUS Piperacillin/Tazobactam >=128 R F Cefazolin >=64 R F Ceftazidime >=64 R F Ceftriaxone 32 I F Ertapenem <=0.5 S F Imipenem <=0.25 S F Amikacin 16 S F Gentamicin >=16 R F Tobramycin >=16 R F Ciprofloxacin >=4 R F Levofloxacin >=8 R F Nitrofurantoin 64 I F Trimethoprim/Sulfamethoxaz ole >=320 R F ORGANISM 2 Pseudomonas aeruginosa ANTIBIOTIC M.I.C RX STATUS Piperacillin/Tazobactam 32 S F Ceftazidime 8 S F Amikacin 32 I F Gentamicin >=16 R F Tobramycin >=16 R F Ciprofloxacin 2 I F Normal [facility] Comment on above: Performed By: #### U RCX #### [facility] [address] [place] [address] Dr. Chapin Beck UA RANDOMon 03-10-2022 Bilirubin Ql (U) Negative Normal NEGATIVE [facility] Comment on above: Performed By: #### G ENTR #### [facility] [address] [place] [address] Dr. Chapin Beck Clarity (U) CLEAR Normal CLEAR [facility] Comment on above: Performed By: #### G ENTR #### [facility] [address] [place] [address] Dr. Chapin Beck Color (U) YELLOW Normal YELLOW [facility] Comment on above: Performed By: #### G ENTR #### [facility] [address] [place] [address] Dr. Chapin Beck Glucose Ql (U) Negative Normal NEGATIVE [facility] Comment on above: Performed By: #### G ENTR #### [facility] [address] [place] [address] Dr. Chapin Beck Hemoglobin Ql (U) Negative Normal NEGATIVE [facility] Comment on above: Performed By: #### G ENTR #### [facility] [address] [place] [address] Dr. Chapin Beck Ketones Ql (U) Negative Normal NEGATIVE [facility] Comment on above: Performed By: #### G ENTR #### [facility] [address] [place] [address] Dr. Chapin Beck LEUKOCYTES Negative Normal NEGATIVE [facility] Comment on above: Performed By: #### G ENTR #### [facility] [address] [place] [address] Dr. Chapin Beck Nitrite Ql (U) Positive Abnormal NEGATIVE [facility] Comment on above: Performed By: #### G ENTR #### [facility] [address] [place] [address] Dr. Chapin Beck pH (U) 5.5 [pH] Normal 5-9 [facility] Comment on above: Performed By: #### G ENTR #### [facility] [address] [place] [address] Dr. Chapin Beck SPEC GRAVITY <=1.005 Abnormal 1.005-<=1. 025 [facility] Comment on above: Performed By: #### G ENTR #### [facility] [address] [place] [address] Dr. Chapin Beck UA PROTEIN Negative Normal NEGATIVE/ TRACE [facility] Comment on above: Performed By: #### G ENTR #### [facility] [address] [address] [address] Chapin Beck Urobilinogen Qn (U) 0.2 {Sami'U}/dL Normal 0.2 - 1. 0 [facility] Comment on above: Performed By: #### G ENTR #### [facility] [address] [place] [address] Dr. Chapin Beck Patient Letter FTon [address] [facility] (Inserted Image. Archana ble to display) March 02, [address] [place] [id number] To whom it may concern, Angella Pradhan, is scheduled for hip replacement surgery at [facility], with Dr. Arvizu. Patient is surgically cleared for surgery on March 19, 2022 as long as a repeat Urine C&S done prior to surgery is negative. If the urine culture is positive then the patients surgery will need to be cancelled. Repeat Urine C&S will be done the week prior to surgery. Sincerely, Dr. Antoine Mead, [facility] FAX: SAV Calvert Normal [facility] Recordson 02-25 [facility] [id number]:127 Normal [facility] Records [id number]:127 Normal [facility] CULTURE URINEon 02-22-2022 CULTURE URINE Isolate 1 Enterobacter cloacae complex 10,000 cfu/mL of ORGANISM 1 Enterobacter cloacae complex ANTIBIOTIC M.I.C RX STATUS Piperacillin/Tazobactam >=128 R F Cefazolin >=64 R F Ceftazidime >=64 R F Ceftriaxone 32 I F Ertapenem <=0.5 S F Imipenem <=0.25 S F Amikacin <=2 S F Gentamicin >=16 R F Tobramycin 8 I F Ciprofloxacin >=4 R F Levofloxacin >=8 R F Nitrofurantoin 64 I F Trimethoprim/Sulfamethoxaz ole >=320 R F Normal [facility] Comment on above: Performed By: #### B #### [facility] [address] [address] [address] Chapin Beck Ambulatory Visit Summaryon 0 02-19-2022 Ambulatory Visit Summary ANGELLA PRADHAN :1945 Visit Date:02/19/2022 Ambulatory Visit Instructions Your Diagnosis BPH with urinary obstruction Incomplete emptying of bladder Your Care Team Attending Physician - BOSTON DUMONT, Antoine Morton Primary Care Physician - Ace Abbott MD This Is Your Medications List finasteride (finasteride 5 mg Tab) oxybutynin (oxybutynin 10 mg ER Tab) tamsulosin (tamsulosin 0.4 mg Cap) Contact prescribing physician if questions or concerns acetaminophen-oxycodone (Percocet 5 mg-325 mg oral tablet) apixaban (Eliquis 5 mg oral tablet) atorvastatin (atorvastatin 40 mg Tab) calcium carbonate (Tums) cefdinir (cefdinir 300 mg Cap) dextromethorphan (dextromethorphan 10 mg/5 mL oral syrup) digoxin (Digox 125 mcg (0.125 mg) oral tablet) docusate (Colace) ferrous sulfate (ferrous sulfate 325 mg oral enteric coated tablet) gabapentin (gabapentin 300 mg Cap) hyoscyamine (hyoscyamine 0.125 mg oral Tab) lactulose (lactulose 20 g Oral Pwdr) levetiracetam (levETIRAcetam 500 mg oral tablet, dispersible) midodrine (midodrine 10 mg oral tablet) mirtazapine (mirtazapine 30 mg Tab) multivitamin (Multi Vitamin+) nystatin (nystatin 100,000 units/mL Oral Susp) omeprazole (omeprazole 40 mg Cap-DR) senna (Senna Lax) sotalol (sotalol 120 mg Tab) Procedures Performed Cardiac catheterization, Excision of lesion from soft tissue of face, History of hernia repair, Placement of stent in cardiac conduit. Discharge Vitals Heart Rate (Peripheral) 69 Respiratory Rate 16 Blood Pressure 109/68 Height 167 cm Height 66 in Weight 84.2 kg Weight 185.24 lb BMI 30.19 What to do next You Need to Schedule the Following Appointments Follow Up with BOSTON DUMONT, ALCON Glover When: Where: [address] [place], [place] [id number]- Medications What How Much When Instructions Unchanged finasteride (finasteride 5 mg Tab) By Mouth Every day Unchanged oxybutynin (oxybutynin 10 mg ER Tab) Unchanged tamsulosin (tamsulosin 0.4 mg Cap) By Mouth Every day Unchanged acetaminophen-oxycodone (Percocet 5 mg-325 mg oral tablet) By Mouth Every 6 hours Contact prescribing physician if questions or concerns Unchanged apixaban (Eliquis 5 mg oral tablet) By Mouth 2 times a day Contact prescribing physician if questions or concerns Unchanged atorvastatin (atorvastatin 40 mg Tab) By Mouth Every day Contact prescribing physician if questions or concerns Unchanged calcium carbonate (Tums) Chewed Every day Contact prescribing physician if questions or concerns Unchanged cefdinir (cefdinir 300 mg Cap) Contact prescribing physician if questions or concerns Unchanged dextromethorphan (dextromethorphan 10 mg/ 5 mL oral syrup) By Mouth Every 4 hours Contact prescribing physician if questions or concerns Unchanged digoxin (Digox 125 mcg (0.125 mg) oral tablet) By Mouth Every day Contact prescribing physician if questions or concerns Unchanged docusate (Colace) By Mouth 2 times a day Contact prescribing physician if questions or concerns Unchanged ferrous sulfate (ferrous sulfate 325 mg oral enteric coated tablet) By Mouth Every day Contact prescribing physician if questions or concerns Unchanged gabapentin (gabapentin 300 mg Cap) Contact prescribing physician if questions or concerns Unchanged hyoscyamine (hyoscyamine 0.125 mg oral Tab) By Mouth 4 times a day Contact prescribing physician if questions or concerns Unchanged lactulose (lactulose 20 g Oral Pwdr) By Mouth Every day Contact prescribing physician if questions or concerns Unchanged levetiracetam (levETIRAcetam 500 mg oral tablet, dispersible) By Mouth 2 times a day Contact prescribing physician if questions or concerns Unchanged midodrine (midodrine 10 mg oral tablet) By Mouth 3 times a day Contact prescribing physician if questions or concerns Unchanged mirtazapine (mirtazapine 30 mg Tab) Contact prescribing physician if questions or concerns Unchanged multivitamin (Multi Vitamin+) Contact prescribing physician if questions or concerns Unchanged nystatin (nystatin 100,000 units/ mL Oral Susp) 1 Milliliter By Mouth Every 6 hours For an infant give as one milliliter to each side of mouth Contact prescribing physician if questions or concerns Unchanged omeprazole (omeprazole 40 mg Cap-DR) Contact prescribing physician if questions or concerns Unchanged senna (Senna Lax) By Mouth Once a day (at bedtime) Contact prescribing physician if questions or concerns Unchanged sotalol (sotalol 120 mg Tab) By Mouth 2 times a day Contact prescribing physician if questions or concerns Allergies Bactrim (Rash) Problems Ongoing - Any problem that you are currently receiving treatment for. Arthritis BPH with urinary obstruction High cholesterol Incomplete emptying of bladder MO (myocardial infarction) Education Materials Benign Prostatic Hyperplasia Benign prostatic hyperplasia (BPH) is (more content not included)... Normal [facility] Halfway Recordson 02-19 [facility] [id number]:127 [facility] Home Records [id number]#[id number]:127 [facility] Patient Educationon 02-19-19 Patient Education Urology Benign Prostatic Hyperplasia Benign prostatic hyperplasia (BPH) is an enlarged prostate gland that is caused by the normal aging process and not by cancer. The prostate is a walnut-sized gland that is involved in the production of semen. It is located in front of the rectum and below the bladder. The bladder stores urine and the urethra is the tube that carries the urine out of the body. The prostate may get bigger as a man gets older. An enlarged prostate can press on the urethra. This can make it harder to pass urine. The build-up of urine in the bladder can cause infection. Back pressure and infection may progress to bladder damage and kidney (renal) failure. What are the causes? This condition is part of a normal aging process. However, not all men develop problems from this condition. If the prostate enlarges away from the urethra, urine flow will not be blocked. If it enlarges toward the urethra and compresses it, there will be problems passing urine. What increases the risk? This condition is more likely to develop in men over the age of 50 years. What are the signs or symptoms? Symptoms of this condition include: ? Getting up often during the night to urinate. ? Needing to urinate frequently during the day. ? Difficulty starting urine flow. ? Decrease in size and strength of your urine stream. ? Leaking (dribbling) after urinating. ? Inability to pass urine. This needs immediate treatment. ? Inability to completely empty your bladder. ? Pain when you pass urine. This is more common if there is also an infection. ? Urinary tract infection (UTI). How is this diagnosed? This condition is diagnosed based on your medical history, a physical exam, and your symptoms. Tests will also be done, such as: ? A post-void bladder scan. This measures any amount of urine that may remain in your bladder after you finish urinating. ? A digital rectal exam. In a rectal exam, your health care provider checks your prostate by putting a lubricated, gloved finger into your rectum to feel the back of your prostate gland. This exam detects the size of your gland and any abnormal lumps or growths. ? An exam of your urine (urinalysis). ? A prostate specific antigen (PSA) screening. This is a blood test used to screen for prostate cancer. ? An ultrasound. This test uses sound waves to electronically produce a picture of your prostate gland. Your health care provider may refer you to a specialist in kidney and prostate diseases (urologist). How is this treated? Once symptoms begin, your health care provider will monitor your condition (active surveillance or watchful waiting). Treatment for this condition will depend on the severity of your condition. Treatment may include: ? Observation and yearly exams. This may be the only treatment needed if your condition and symptoms are mild. ? Medicines to relieve your symptoms, including: ? Medicines to shrink the prostate. ? Medicines to relax the muscle of the prostate. ? Surgery in severe cases. Surgery may include: ? Prostatectomy. In this procedure, the prostate tissue is removed completely through an open incision or with a laparoscope or robotics. ? Transurethral resection of the prostate (TURP). In this procedure, a tool is inserted through the opening at the tip of the penis (urethra). It is used to cut away tissue of the inner core of the prostate. The pieces are removed through the same opening of the penis. This removes the blockage. ? Transurethral incision (TUIP). In this procedure, small cuts are made in the prostate. This lessens the prostate's pressure on the urethra. ? Transurethral microwave thermotherapy (TUMT). This procedure uses microwaves to create heat. The heat destroys and removes a small amount of prostate tissue. ? Transurethral needle ablation (TUNA). This procedure uses radio frequencies to destroy and remove a small amount of prostate tissue. ? Interstitial laser coagulation (ILC). This procedure uses a laser to destroy and remove a small amount of prostate tissue. ? Transurethral electrovaporization (TUVP). This procedure uses electrodes to destroy and remove a small amount of prostate tissue. ? Prostatic urethral lift. This procedure inserts an implant to push the lobes of the prostate away from the urethra. Follow these instructions at home: ? Take ddkc-eoo-acqtjoe and prescription medicines only as told by your health care provider. ? Monitor your symptoms for any changes. Contact your health care provider with any changes. ? Avoid drinking large amounts of liquid before going to bed or out in public. ? Avoid or reduce how much caffeine or alcohol you drink. ? Give yourself time when you urinate. ? Keep all follow-up visits as told by your health care provider. This is important. Contact a health care provider if: ? You have unexplained back pain. ? Your symptoms do not get better with treatment. ? You d (more content not included)... Normal [facility] Urology Office/Clinic Noteon 02-19-2022 Urology Office/Clinic Note Chief Complaint clearance for hip surgery HPI Staff Pt is here today for Urology clearance for hip surgery that is scheduled for 03/04/22. Previous dx of BPH with urinary obstruction and incomplete bladder emptying. Dysuria: no Incomplete bladder emptying: pt states that he feels relieved when he is done voiding Hematuria: no Frequency: pt voids 2-3x during the daytime Urgency: no Nocturia: 3x now but states he was voiding every hour before Stream: pt states he is unsure. He feels the stream at first but after that he can't feel it anymore. He states he just knows when he is finished. Leaking: no Post void dripping: no Wearing pads/ Depends: wears depends and wears the same one all day Urge incontinence: no Stress incontinence: no Incontinence without Sensory Awareness: no Abdominal pain: no Flank pain: no Sexual complaints: no History of Present Illness Tests reviewed: none. I have reviewed the previous health record information and history for this patient from Dr. Mead. I have reviewed and verified the staff HPI to be accurate for this encounter. There have been no associated fever, chills, flank pain, or blood in the urine. Denies any urinary infections since last encounter. Review of Systems PHQ Score Initial Depression Screen Score: 0 ROS - Provider Constitutional: denies weight loss, denies hot flashes. Eyes: denies eye problems. Gastrointestinal: denies nausea, denies vomiting. Cardiovascular: denies chest pain or angina. Integumentary: no dryness Musculoskeletal: denies musculoskeletal symptoms. ENMT: denies otolaryngeal symptoms. Respiratory: no shortness of breath. Heme/Lymph: denies easy bleeding tendency, denies easy bruising tendency. Psychiatric: no confusion, no anxiety. Genitourinary: denies dysuria, denies hematuria, denies discharge, denies urinary frequency, denies urinary hesitancy, denies nocturia, denies incontinence, denies genital sores, denies decreased libido, and denies erectile dysfunction. Physical Exam Vitals & Measurements HR: 69(Peripheral) RR: 16 BP: 109/68 HT: 66 in HT: 167 cm WT: 84.2 kg WT: 185.24 lb BMI: 30.19 General Appearance: alert, no distress, well nourished, well developed male. Genitourinary: normal scrotum, normal testes, normal urethra, normal epididymis, normal vas deferens/spermatic cord. Flank Pain: none. Bladder: nonpalpable. Assessment/Plan 1. BPH with urinary obstruction (N40.1: Benign prostatic hyperplasia with lower urinary tract symptoms) CT scan done 01/31/21 shows enlarged prostate impressing upon the bladder base. Pt. is taking Finasteride 5mg daily, Tamsulosin 0.4mg daily, and Oxybutynin 10mg ER daily. Pt. is here today for medical clearance prior to hip surgery, scheduled for early March, to rule out UTI. Pt. unable to get out of his scooter today to provide urine sample. Pt's daughter reports he was started on prophylactic abx. Daughter states [facility] is going to obtain a urine sample this upcoming Tuesday to rule out infection. The results of urine sample will need to be faxed to our office for review. Progress note sent with patient for nursing staff review. Pt. understands he cannot be cleared by our office until we review urine sample results prior to surgery. full w/u with cysto and urodynamics is to be done after his hip surgery. 2. Incomplete emptying of bladder (R33.9: Retention of urine, unspecified) Patient went into urinary retention with 500 mL of urine and had Ghtora placed in hospital over a year ago. Per previous note, pt. was to be scheduled for Cysto/Urodynamics following hip surgery. Follow-up With When Contact Information [place] DUMONT, Antoine Morton, [place] [id number]- Additional Instructions: Patient Education Benign Prostatic Hyperplasia I, Nellie Li, personally scribed for Dr. Mead on 02/19/2022 10:07:43. . Documentation recorded by the scribe, Nellie Li, accurately reflects the services(s) I performed and decisions made by me. Authenticated by Dr. Mead on 02/19/2022 10:18:18. Problem List/Past Medical History Ongoing Arthritis BPH with urinary obstruction High cholesterol Incomplete emptying of bladder [place] (myocardial infarction) Historical No qualifying data Procedure/Surgical History Cardiac catheterization, Excision of lesion from soft tissue of face, History of hernia repair, Placement of stent in cardiac conduit. Medications atorvastatin 40 mg Tab, Oral, Daily cefdinir 300 mg Cap Colace, Oral, BID dextromethorphan 10 mg/5 mL oral syrup, Oral, q4hr Digox 125 mcg (0.125 mg) oral tablet, Oral, Daily Eliquis 5 mg oral tablet, Oral, BID ferrous sulfate 325 mg oral enteric coated tablet, Oral, Daily finasteride 5 mg Tab, Oral, Daily gabapentin 300 mg Cap hyoscyamine 0.125 mg oral Tab, Oral, QID lactulose 20 g Oral Pwdr, Oral, Daily levETIRA (more content not included)... Normal [facility] Comment on above: Result Comment: Elec tronically Signed By: Antoine MEAD MD\.br\Date and Time Signed: 02/19/22 10:18 EST\.br\Electronically Co-Signed By: Nellie Li.br\Date and Time Co-Signed: 02/19/22 10:13 EST CULTURE URINEon 12-30-2021 CULTURE URINE Culture Observations : MULTI-DRUG RESISTANT ORGANISM. Culture Observations: Susceptibilities performed by [facility]. Isolate 1 Pseudomonas aeruginosa 100,000 cfu/mL of ORGANISM 1 Pseudomonas aeruginosa ANTIBIOTIC M.I.C RX STATUS Amikacin I F Cefepime S F Ceftazidime S F Ciprofloxacin R F Gentamicin R F Imipenem S F Levofloxacin R F Meropenem S F Piperacillin S F Ticarcillin R F Tobramycin R F Normal [facility] Comment on above: Performed By: #### U RCX #### [facility] [address] [place] [address] Dr. Chapin Beck CULTURE URINEon 12-23-2021 CULTURE URINE Culture Observations : Susceptibilities performed by [facility]. Isolate 1 Pseudomonas aeruginosa >100,000 cfu/mL of ORGANISM 1 Pseudomonas aeruginosa ANTIBIOTIC M.I.C RX STATUS Cefepime S F Ciprofloxacin I F Gentamicin R F Imipenem S F Piperacillin/Tazobactam S F Tobramycin R F Aztreonam S F Ceftazidime S F Levofloxacin S F Ticarcillin/Clavulanic Acid S F Amikacin I F Meropenem S F Normal [facility] Comment on above: Performed By: #### U RCX #### [facility] [address] [place] [address] Dr. Chapin Beck Covid-19 PCR (CVDTB)on 12-08 SARS-CoV-2 (COVID-19) RNA VITA+probe Ql (Unsp spec) Not detected Normal NOT DETECTED [facility] Comment on above: Result Comment: This test is not yet approved or cleared by the [place] FDA. When there are no FDA-approved or cleared tests available, and other criteria are met, FDA can make tests available under an emergency access mechanism called an Emergency Use Authorization (EUA). The EUA for this test is supported by the [employer]isan [employer] of Health and Human Service's (HHS's) declaration that circumstances exist to justify the emergency use of in vitro diagnostics for the detection and/or diagnosis of the virus that causes COVID-19. This EUA will remain in effect (meaning this test can be used) for the duration of the COVID-19 declaration justifying emergency of IVDs, unless it is terminated or revoked by FDA (after which the test may no longer be used). When diagnostic testing is negative, the possibility of a false negative should be considered in the context of a patient's recent exposures and the presence of clinical signs and symptoms consistent with SARS-CoV-2. Performed By: #### U AMIC #### [facility] [address] [place] [address] Dr. Chapin Beck UA RANDOM W/MICROSCOPICon BACTERIA SMALL Abnormal NONE SEEN [facility] Comment on above: Performed By: #### U AMIC #### [facility] [address] [place] [address] Dr. Chapin Beck Bilirubin Ql (U) Negative Normal NEGATIVE [facility] Comment on above: Performed By: #### U AMIC #### [facility] [address] [place] [address] Dr. Chapin Beck CAST NONE SEEN Normal NONE SEEN [facility] Comment on above: Performed By: #### U AMIC #### [facility] [address] [place] [address] Dr. Chapin Beck Clarity (U) CLEAR Normal CLEAR [facility] Comment on above: Performed By: #### U AMIC #### [facility] [address] [place] [address] Dr. Chapin Beck Color (U) YELLOW Normal YELLOW [facility] Comment on above: Performed By: #### U AMIC #### [facility] [address] [place] [address] Dr. Chapin Beck Crystals LM Nom (Urine sed) NONE SEEN Normal NONE SEEN [facility] Comment on above: Performed By: #### U AMIC #### [facility] [address] [place] [address] Dr. Chapin Beck Epithelial cells LM Ql (Urine sed) RARE Normal NONE SEEN /RARE [facility] Comment on above: Performed By: #### U AMIC #### [facility] [address] [place] [address] Dr. Chapin Beck Glucose Ql (U) Negative Normal NEGATIVE [facility] Comment on above: Performed By: #### U AMIC #### [facility] [address] [address] [address] Chapin Beck Hemoglobin Ql (U) Negative Normal NEGATIVE [facility] Comment on above: Performed By: #### U AMIC #### [facility] [address] [place] [address] [address] Chapin Beck Ketones Ql (U) Negative Normal NEGATIVE [facility] Comment on above: Performed By: #### U AMIC #### [facility] [address] [place] [address] Dr. Chapin Beck LEUKOCYTES Negative Normal NEGATIVE [facility] Comment on above: Performed By: #### U AMIC #### [facility] [address] [place] [address] Dr. Chapin Beck MUCOUS NONE SEEN Normal NONE SEEN [facility] Comment on above: Performed By: #### U AMIC #### [facility] [address] [place] [address] Dr. Cahpin Beck Nitrite Ql (U) Positive Abnormal NEGATIVE [facility] Comment on above: Performed By: #### U AMIC #### [facility] [address] [place] [address] Dr. Chapin Beck pH (U) 5.5 [pH] Normal 5-9 [facility] Comment on above: Performed By: #### U AMIC #### [facility] [address] [place] [address] [address] Chapin Beck RBC NONE SEEN Abnormal 0-2 [facility] Comment on above: Performed By: #### U AMIC #### [facility] [address] [place] [address] Dr. Chapin Beck SPEC GRAVITY 1.025 Normal 1.005-<=1. 025 [facility] Comment on above: Performed By: #### U AMIC #### [facility] [address] [address] [address] Chapin FISCHER PROTEIN Negative Normal NEGATIVE/ TRACE [facility] Comment on above: Performed By: #### U AMIC #### [facility] [address] [place] [address] Dr. Chapin Beck Urobilinogen Qn (U) 0.2 {Sami'U}/dL Normal 0.2 - 1. 0 [facility] Comment on above: Performed By: #### U AMIC #### [facility] [address] [place] [address] Dr. Chapin Beck WBC 2-5 Abnormal NONE SEEN [facility] Comment on above: Performed By: #### U AMIC #### [facility] [address] [place] [address] Dr. Chapin Beck UA RANDOMon 12-15-2021 Bilirubin Ql (U) Negative Normal NEGATIVE [facility] Comment on above: Performed By: #### B MP #### [facility] [address] [place] [address] Dr. Chapin Beck Clarity (U) CLEAR Normal CLEAR [facility] Comment on above: Performed By: #### B MP #### [facility] [address] [place] [address] Dr. Chapin Beck Color (U) LT. YELLOW Normal YELLOW [facility] Comment on above: Performed By: #### B MP #### [facility] [address] [place] [address] Dr. Chapin Beck Glucose Ql (U) Negative Normal NEGATIVE [facility] Comment on above: Performed By: #### B MP #### [facility] [address] [place] [address] Dr. Chapin Beck Hemoglobin Ql (U) Negative Normal NEGATIVE [facility] Comment on above: Performed By: #### B MP #### [facility] [address] [place] [address] Dr. Chapin Beck Ketones Ql (U) Negative Normal NEGATIVE [facility] Comment on above: Performed By: #### B MP #### [facility] [address] [place] [address] Dr. Chapin Beck LEUKOCYTES SMALL Abnormal NEGATIVE [facility] Comment on above: Performed By: #### B MP #### [facility] [address] [place] [address] [address] Chapin Beck Nitrite Ql (U) Positive Abnormal NEGATIVE [facility] Comment on above: Performed By: #### B MP #### [facility] [address] [place] [address] Dr. Chapin Beck pH (U) 6.0 [pH] Normal 5-9 [facility] Comment on above: Performed By: #### B MP #### [facility] [address] [place] [address] Dr. Chapin Beck SPEC GRAVITY 1.020 Normal 1.005-<=1. 025 [facility] Comment on above: Performed By: #### B MP #### [facility] [address] [place] [address] Dr. Chapin Beck UA PROTEIN Negative Normal NEGATIVE/ TRACE [facility] Comment on above: Performed By: #### B MP #### [facility] [address] [place] [address] Dr. Chapin Beck Urobilinogen Qn (U) 0.2 {Sami'U}/dL Normal 0.2 - 1. 0 [facility] Comment on above: Performed By: #### B MP #### [facility] [address] [place] [address] Dr. Chapin Beck URINE MICROSCOPIC ONLYon BACTERIA MODERATE Abnormal NONE SEEN [facility] Comment on above: Performed By: #### U AMIC #### [facility] [address] [place] [address] Dr. Chapin Beck Bacteria identified Cx Nom (U) CX ALREADY ORDERED Normal [facility] Comment on above: Performed By: #### U AMIC #### [facility] [address] [place] [address] Dr. Chapin Beck CAST NONE SEEN Normal NONE SEEN [facility] Comment on above: Performed By: #### U AMIC #### [facility] [address] [address] [address] Chapin Beck Crystals LM Nom (Urine sed) NONE SEEN Normal NONE SEEN [facility] Comment on above: Performed By: #### U AMIC #### [facility] [address] [place] [address] Dr. Chapin Beck Epithelial cells LM Ql (Urine sed) FEW Abnormal NONE SEEN /RARE [facility] Comment on above: Performed By: #### U AMIC #### [facility] [address] [place] [address] Dr. Chapin Beck MUCOUS NONE SEEN Normal NONE SEEN [facility] Comment on above: Performed By: #### U AMIC #### [facility] [address] [place] [address] Dr. Chapin Beck RBC NONE SEEN Abnormal 0-2 [facility] Comment on above: Performed By: #### U AMIC #### [facility] [address] [place] [address] Dr. Chapin Beck WBC 5-10 Abnormal NONE SEEN [facility] Comment on above: Performed By: #### U AMIC #### [facility] [address] [place] [address] Dr. Chapin Beck UA RANDOM W/MICROSCOPICon BACTERIA SMALL Abnormal NONE SEEN [facility] Comment on above: Performed By: #### U AMIC #### [facility] [address] [place] [address] Dr. Chapin Beck Bilirubin Ql (U) Negative Normal NEGATIVE [facility] Comment on above: Performed By: #### U AMIC #### [facility] [address] [place] [address] Dr. Chapin Beck CAST NONE SEEN Normal NONE SEEN [facility] Comment on above: Performed By: #### U AMIC #### [facility] [address] [place] [address] Dr. Chapin Beck Clarity (U) CLEAR Normal CLEAR [facility] Comment on above: Performed By: #### U AMIC #### [facility] [address] [place] [address] Dr. Chapin Beck Color (U) LT. YELLOW Normal YELLOW [facility] Comment on above: Performed By: #### U AMIC #### [facility] [address] [address] [address] Chapin Beck Crystals LM Nom (Urine sed) NONE SEEN Normal NONE SEEN [facility] Comment on above: Performed By: #### U AMIC #### [facility] [address] [address] [address] Chapin Beck Epithelial cells LM Ql (Urine sed) FEW Abnormal NONE SEEN /RARE [facility] Comment on above: Performed By: #### U AMIC #### [facility] [address] [address] [address] Chapin Beck Glucose Ql (U) Negative Normal NEGATIVE [facility] Comment on above: Performed By: #### U AMIC #### [facility] [address] [place] [address] Dr. Chapin Beck Hemoglobin Ql (U) Negative Normal NEGATIVE [facility] Comment on above: Performed By: #### U AMIC #### [facility] [address] [place] [address] Dr. Chapin Beck Ketones Ql (U) Negative Normal NEGATIVE [facility] Comment on above: Performed By: #### U AMIC #### [facility] [address] [place] [address] Dr. Chapin Beck LEUKOCYTES SMALL Abnormal NEGATIVE [facility] Comment on above: Performed By: #### U AMIC #### [facility] [address] [address] [address] Chapin Beck MUCOUS NONE SEEN Normal NONE SEEN [facility] Comment on above: Performed By: #### U AMIC #### [facility] [address] [address] [address] Chapin Beck Nitrite Ql (U) Positive Abnormal NEGATIVE [facility] Comment on above: Performed By: #### U AMIC #### [facility] [address] [place] [address] Dr. Chapin Beck pH (U) 6.0 [pH] Normal 5-9 [facility] Comment on above: Performed By: #### U AMIC #### [facility] [address] [address] [address] Chapin Beck RBC NONE SEEN Abnormal 0-2 [facility] Comment on above: Performed By: #### U AMIC #### [facility] [address] [address] [address] Chapin Beck SPEC GRAVITY 1.020 Normal 1.005-<=1. 025 [facility] Comment on above: Performed By: #### U AMIC #### [facility] [address] [address] [address] Chapin Beck UA PROTEIN Negative Normal NEGATIVE/ TRACE [facility] Comment on above: Performed By: #### U AMIC #### [facility] [address] [address] [address] Chapin Beck Urobilinogen Qn (U) 0.2 {Sami'U}/dL Normal 0.2 - 1. 0 [facility] Comment on above: Performed By: #### U AMIC #### [facility] [address] [place] [address] Dr. Chapin Beck WBC 5-10 Abnormal NONE SEEN [facility] Comment on above: Performed By: #### U AMIC #### [facility] [address] [place] [address] Dr. Chapin Beck Basic Metabolic Panelon 10-3 Anion gap [Moles/Vol] 13.1 mmol/L Normal 6.0-15.0 [facility] Comment on above: Performed By: #### C OVID-19 BECKY SOFIANEG #### [facility] [address] Calcium [Mass/Vol] 9.0 mg/dL Normal 8.2-10.2 [facility] Comment on above: Result Comment: PERF ORMED BY: [place] [address] PATHOLOGIST VENDING MACHINE TECHNICIAN CHELSY BHAGAT M.D. Performed By: #### C OVID-19 BECKY, SOFIANEG #### [facility] [address] Chloride [Moles/Vol] 100 mmol/L Normal 95-114 [facility] Comment on above: Performed By: #### C OVID-19 BECKY, SOFIANEG #### [facility] [address] CO2 [Moles/Vol] 26.7 mmol/L Normal 22.0-30.0 [facility] Comment on above: Performed By: #### C OVID-19 BECKY SOFIANEG #### [facility] [address] Creatinine [Mass/Vol] 0.69 mg/dL Normal 0.64-1.27 [facility] Comment on above: Performed By: #### C OVID-19 BECKY, SOFIANEG #### [facility] [address] Estimated GFR ( Altagracia > 60 Normal [facility] Comment on above: Result Comment: GFR estimated reference range: According to KDOQI guidelines, <60 ml/min/1.73m2 is sufficient to diagnose a patient with chronic kidney disease. Performed By: #### C OVID-19 BECKY, SOFIANEG #### [facility] [address] Estimated GFR (Non- Am > 60 [facility] Comment on above: Performed By: #### C OVID-19 BECKY, SOFIANEG #### [facility] [address] [place] [address] [place] Glucose [Mass/Vol] 104 mg/dL High 70-100 [facility] Comment on above: Result Comment: [place] Glucose Reference Range is dependent on time and content of last meal. Glucose of more than 200 mg/dL in a nonstressed, ambulatory subject supports the diagnosis of Diabetes Mellitus. ADA recommended reference range Performed By: #### C OVID-19 BECKY, SOFIANEG #### [facility] [address] Potassium [Moles/Vol] 4.8 mmol/L Normal 3.5-5.1 [facility] Comment on above: Performed By: #### C OVID-19 BECKY, SOFIANEG #### [facility] [address] Sodium [Moles/Vol] 135 mmol/L Low 136-146 [facility] Comment on above: Performed By: #### C OVID-19 BECKY, SOFIANEG #### [facility] [address] [place] [address] Urea nitrogen [Mass/Vol] 18 mg/dL Normal 9- [facility] Comment on above: Performed By: #### C OVID-19 BECKY, SOFIANEG #### [facility] [address] [place] [address] [place] Basophils Auto (Bld) [#/Vol] Ordered By: Soham Cash on 12-07-2021 Basophils (Bld) [#/Vol] 0.1 10*3/uL 0.0-0.2 [facility] Basophils/100 WBC Auto (Bld) Ordered By: Soham Cash on 12-07-2021 Basophils/100 WBC (Bld) 0.7 % . [facility] Complete Blood Count Auto Di ffon 12-07-2021 Basophils (Bld) [#/Vol] 0.1 10*3/uL Normal 0.0-0.2 [facility] Comment on above: Result Comment: PERF ORMED BY: [place] [address] PATHOLOGIST VENDING MACHINE TECHNICIAN CHELSY BHAGAT M.D. Performed By: #### C OVID-19 BECKY, SOFIANEG #### [facility] [address] [place] [address] Basophils/100 WBC (Bld) 0.7 % Normal . [facility] Comment on above: Performed By: #### C OVID-19 BECKY, SOFIANEG #### [facility] [address] [place] [address] Eosinophils (Bld) [#/Vol] 0.4 10*3/uL Normal 0.0-0.45 [facility] Comment on above: Performed By: #### C OVID-19 BECKY, SOFIANEG #### [address] [place] [address] [place] Eosinophils/100 WBC (Bld) 5.8 % Normal . [facility] Comment on above: Performed By: #### C OVID-19 BECKY, SOFIANEG #### [facility] [address] Erythrocyte distribution width (RBC) [Ratio] 15.9 % High 12.0-14.8 [facility] Comment on above: Performed By: #### C OVID-19 BECKY, SOFIANEG #### [address] Hematocrit (Bld) [Volume fraction] 43.2 % Normal 38.8-50.0 [facility] Comment on above: Performed By: #### C OVID-19 BECKY, SOFIANEG #### [address] Hemoglobin (Bld) [Mass/Vol] 14.1 g/dL Normal 13.0-17.0 [facility] Comment on above: Performed By: #### C OVID-19 BECKY, SOFIANEG #### [place] [address] [place] Lymphocytes (Bld) [#/Vol] 2.0 10*3/uL Normal 1.00-4.8 [facility] Comment on above: Performed By: #### C OVID-19 BECKY, SOFIANEG #### [place] [address] [place] Lymphocytes/100 WBC (Bld) 26.7 % Normal . [facility] Comment on above: Performed By: #### C OVID-19 BECKY, SOFIANEG #### [facility] [address] [place] [address] [place] MCH (RBC) [Entitic mass] 28.4 pg Normal 27.5-35.2 [facility] Comment on above: Performed By: #### C OVID-19 BECKY, SOFIANEG #### [facility] [address] [place] [address] [place] MCV (RBC) [Entitic vol] 86.6 fL Normal 83.5-101 [facility] Comment on above: Performed By: #### C OVID-19 BECKY, SOFIANEG #### [facility] [address] Mean Corpuscular HGB Conc 32.8 g/dL Normal 32.5-35.6 [facility] Comment on above: Performed By: #### C OVID-19 BECKY, SOFIANEG #### [facility] [address] [place] [address] [place] Monocytes (Bld) [#/Vol] 1.0 10*3/uL High 0.0-0.8 [facility] Comment on above: Performed By: #### C OVID-19 BECKY, SOFIANEG #### [facility] [address] [place] [address] [place] Monocytes/100 WBC (Bld) 13.8 % Normal . [facility] Comment on above: Performed By: #### C OVID-19 BECKY, SOFIANEG #### [facility] [address] [place] [address] Neutrophils (Bld) [#/Vol] 4.0 10*3/uL Normal 1.8-7.7 [facility] Comment on above: Performed By: #### C OVID-19 BECKY, SOFIANEG #### [facility] [address] [place] [address] [place] Neutrophils/100 WBC (Bld) 53.0 % Normal . [facility] Comment on above: Performed By: #### C OVID-19 BECKY, SOFIANEG #### [facility] [address] [place] [address] [place] Nucleated RBC/100 WBC (Bld) [Ratio] 0.1 % Normal 0-0.5 [facility] Comment on above: Performed By: #### C OVID-19 BECKY, SOFIANEG #### [facility] [address] [place] [address] [place] Platelet mean volume (Bld) [Entitic vol] 7.8 fL Normal 6.6-10.1 [facility] Comment on above: Performed By: #### C OVID-19 BECKY, SOFIANEG #### [facility] [address] [place] [address] [place] Platelets (Bld) [#/Vol] 154 10*3/uL Normal 150-450 [facility] Comment on above: Performed By: #### C OVID-19 BECKY, SOFIANEG #### [facility] [address] RBC (Bld) [#/Vol] 4.99 10*6/uL Normal 3.90-5.60 [facility] Comment on above: Performed By: #### C OVID-19 BECKY, SOFIANEG #### [facility] [address] [place] [address] [place] WBC (Bld) [#/Vol] 7.5 10*3/uL Normal 4.5-11.0 [facility] Comment on above: Performed By: #### C OVID-19 BECKY, SOFIANEG #### [facility] [address] Creatinine and Glomerular fi ltration rate.predicted panel (S/P/Bld)Ordered By: Soham Cash on 12-07-2021 Creatinine [Mass/Vol] 0.69 mg/dL 0.64-1.27 [facility] Eosinophils Auto (Bld) [#/Vo l]Ordered By: Soham Cash on 12-07-2021 Eosinophils (Bld) [#/Vol] 0.4 10*3/uL 0.0-0.45 [facility] Eosinophils/100 WBC Auto (Bl d)Ordered By: Soham Cash on 12-07-2021 Eosinophils/100 WBC (Bld) 5.8 % . [facility] Erythrocyte distribution wid th Auto (RBC) [Ratio]Ordered By: Soham Cash on 12-07-2021 Erythrocyte distribution width (RBC) [Ratio] 15.9 % 12.0-14.8 [facility] Estimated glomerular filtrat ion rate (GFR) non- AmericanOrdered By: Soham Cash on 12-07-2021 GFR/1.73 sq M.predicted among non-blacks MDRD (S/P/Bld) [Vol rate/Area] > 60 mL/Min [facility] Hematocrit Auto (Bld) [Volum e fraction]Ordered By: Soham Cash on 12-07-2021 Hematocrit (Bld) [Volume fraction] 43.2 % 38.8-50.0 [facility] Hemoglobin [Mass/volume] in BloodOrdered By: Soham Cash on 12-07-2021 Hemoglobin (Bld) [Mass/Vol] 14.1 g/dL 13.0-17.0 [facility] Laboratory - Hematology and Cell countsOrdered By: Soham Cash on 12-07-2021 Nucleated RBC/100 WBC (Bld) [Ratio] 0.1 % 0-0.5 [facility] Leukocytes [#/volume] in Blo od by Automated countOrdered By: Soham Cash on 12-07-2021 WBC (Bld) [#/Vol] 7.5 10*3/uL 4.5-11.0 [facility] Lymphocytes Auto (Bld) [#/Vo l]Ordered By: Soham Cash on 12-07-2021 Lymphocytes (Bld) [#/Vol] 2.0 10*3/uL 1.00-4.8 [facility] Lymphocytes/100 WBC Auto (Bl d)Ordered By: Soham Cash on 12-07-2021 Lymphocytes/100 WBC (Bld) 26.7 % . [facility] MCH Auto (RBC) [Entitic mass ]Ordered By: Sohma Cash on 12-07-2021 MCH (RBC) [Entitic mass] 28.4 pg 27.5-35.2 [facility] MCHC Auto (RBC) [Mass/Vol]Or dered By: Soham Cash on 12-07-2021 MCHC (RBC) [Mass/Vol] 32.8 g/dL 32.5-35.6 [facility] MCV Auto (RBC) [Entitic vol] Ordered By: Soham Cash on 12-07-2021 MCV (RBC) [Entitic vol] 86.6 fL 83.5-101 [facility] Monocytes Auto (Bld) [#/Vol] Ordered By: Soham Cash on 12-07-2021 Monocytes (Bld) [#/Vol] 1.0 10*3/uL 0.0-0.8 [facility] Monocytes/100 WBC Auto (Bld) Ordered By: Soham Cash on 12-07-2021 Monocytes/100 WBC (Bld) 13.8 % . [facility] Neutrophils Auto (Bld) [#/Vo l]Ordered By: Soham Cash on 12-07-2021 Neutrophils (Bld) [#/Vol] 4.0 10*3/uL 1.8-7.7 [facility] Neutrophils/100 WBC Auto (Bl d)Ordered By: Soham Cash on 12-07-2021 Neutrophils/100 WBC (Bld) 53.0 % . [facility] No Panel InformationOrdered By: Soham Cash on 12-07-2021 Estimated GFR () > 60 mL/Min [facility] Comment on above: GFR estimated refere nce range: According to KDOQI guidelines, <60 ml/min/1.73m2 is sufficient to diagnose a patient with chronic kidney disease. Pharmacy Creatinine Clearance (Chem N/A [facility] PST Type and Screenon 2021 ABO and Rh group Nom (Bld) Blood group O Rh(D) positive Normal [facility] Comment on above: Order Comment: Date of Surgery: 20211225 # of PRBC units on hold?: 2 Result Comment: PERF ORMED BY: [facility] [address] [place] [address] PATHOLOGIST VENDING MACHINE TECHNICIAN CHELSY BHAGAT M.D. Platelet mean volume Auto (B ld) [Entitic vol]Ordered By: Soham Cash on 12-07-2021 Platelet mean volume (Bld) [Entitic vol] 7.8 fL 6.6-10.1 [facility] Platelets Auto (Bld) [#/Vol] Ordered By: Soham Cash on 12-07-2021 Platelets (Bld) [#/Vol] 154 10*3/uL 150-450 [facility] RBC Auto (Bld) [#/Vol]Ordere d By: Soham Cash on 12-07-2021 RBC (Bld) [#/Vol] 4.99 10*6/uL 3.90-5.60 [facility] Serum or plasma anion gap de terminationOrdered By: Soham Cash on 12-07-2021 Anion gap [Moles/Vol] 13.1 mmol/L 6.0-15.0 [facility] Serum or plasma calcium kirstie urement (mass/volume)Ordered By: Soham Cash on 12-07-2021 Calcium [Mass/Vol] 9.0 mg/dL 8.2-10.2 [facility] Serum or plasma chloride codie surement (moles/volume)Ordered By: Soham Cash on 12-07-2021 Chloride [Moles/Vol] 100 mmol/L 95-114 [facility] Serum or plasma glucose kirstie urement (mass/volume)Ordered By: Soham Cash on 12-07-2021 Glucose [Mass/Vol] 104 mg/dL 70-100 [facility] Comment on above: ADA recommended refe rence rangeRandom Glucose Reference Range is dependent on time and content of last meal. Glucose of more than 200 mg/dL in a nonstressed, ambulatory subject supports the diagnosis of Diabetes Mellitus. Serum or plasma potassium me asurement (moles/volume)Ordered By: Soham Cash on 12-07-2021 Potassium [Moles/Vol] 4.8 mmol/L 3.5-5.1 [facility] Serum or plasma sodium measu rement (moles/volume)Ordered By: Soham Cash on 12-07-2021 Sodium [Moles/Vol] 135 mmol/L 136-146 [facility] Serum or plasma total carbon dioxide measurement (moles/volume)Ordered By: Soham Cash on 12-07-2021 CO2 [Moles/Vol] 26.7 mmol/L 22.0-30.0 [facility] Serum or plasma urea nitroge n measurement (mass/volume)Ordered By: Soham Cash on 12-07-2021 Urea nitrogen [Mass/Vol] 18 mg/dL 9-23 [facility] XR hip RT min 2V(w/wo pelvis )*on 12-07-2021 XR hip RT min 2V(w/wo pelvis)* [facility] [place] [address] XRay Report Signed Patient: LorneAngella MR#: [id number] : 1945 Acct:[id number] Age/Sex: 76 / M ADM Date: 12/07/21 Loc: PS Room: Type: [facility] Attending Dr: Soham Cash Jr, DO Copies to: Soham Cash Jr, DO Ordering Provider: Soham Cash Jr, DO Date of Service: 12/07/21 XR/XR hip RT min 2V(w/wo pelvis)*: surgery 12/25/21 RIGHT HIP - 2 views: CLINICAL HISTORY: Preop right total hip. COMPARISON: Right hip series 08/24/2021 FINDINGS: Severe degenerative changes of the right hip with femoral head collapse similar configuration to the prior study suggesting a degree of avascular necrosis. No acute bony process is seen. XR/XR hip RT min 2V(w/wo pelvis)* IMPRESSION: SEVERE DEGENERATIVE CHANGES OF THE RIGHT HIP, GROSSLY UNCHANGED FROM THE PRIOR STUDY.. Impression dictated by: Horace Stark Jr., DBetseyOBetsey12/07/2021 3:32 PM Dictation Location: [place] [address] Transcribed By: [facility] 12/07/21 153 Dictated By: Horace Stark Jr, DO 12/07/21 153 Signed By: 12/07/21 153 [facility] Consultation Noteon 11-28-19 Consultation Note [id number]:127 [facility] Insurance Correspondence Off iceon 11-27-2021 Insurance Correspondence Office [id number]:127 [facility] Office Visit (Cardiology)on 11-24-2021 Follow-up visit Diagnoses/Problems Assessed CAD (coronary artery disease) (414.00) (I25.10) Former smoker (V15.82) (Z87.891) Quit smokiing 50-60 years-smoked a pipe Hyperlipidemia (272.4) (E78.5) Status post insertion of drug eluting coronary artery stent (V45.82) (Z95.5) Persistent atrial fibrillation (427.31) (I48.19) care home resident (V60.6) (Z59.3) Preop cardiovascular exam (V72.81) (Z01.810) Orders CAD (coronary artery disease) Start: Aspirin 81 MG Oral Tablet Delayed Release; TAKE 1 TABLET DAILY CAD (coronary artery disease), Status post insertion of drug eluting coronary artery stent Stop: Aspirin EC 81 MG Oral Tablet Delayed Release Persistent atrial fibrillation Start: Eliquis 5 MG Oral Tablet; TAKE ONE TABLET TWO TIMES DAILY IO EKG Electrocardiogram- 12 Lead; Status:Complete; Done: [id number] SocHx: Former smoker Tobacco Use Screening; Status:Complete; Done: [id number] Unlinked Stop: Brilinta 90 MG Oral Tablet Patient Instructions Please bring all medicines, vitamins, and herbal supplements with you when you come to the office. Prescriptions will not be filled unless you are compliant with your follow up appointments or have a follow up appointment scheduled as per instruction of your physician. Refills should be requested at the time of your visit. Stop Brilinta Start aspirn 81 mg daily Start Eliquis 5 mg two times daily Can hold asa 6-7 days before surgery, Eliquis 3-4 days prior Can proceed with surgery from a cardiac standpoint. Follow up in 9 months The provider reviewed the following test(s) and result(s) with the patient: ECG Chief Complaint AND EKG. ANGELLA PRADHAN is being seen for a 9 month follow-up of. History of Present Illness Patient is here for follow-up continue management for coronary artery disease, obesity, hyperlipidemia and for preoperative risk assessment for hip surgery. He underwent PCI LAD and diagonal with known occlusion of his RCA back in 2020. He had a history of atrial fibrillation maintaining sinus rhythm with sotalol. He was on Eliquis but apparently his family physician switched him recently to Brilinta for reason unclear to me. Patient is in the process of being evaluated for hip replacement surgery. Assessment 1. Atrial fibrillation currently on sotalol currently in sinus rhythm with normal QTc interval. His Eliquis discontinued for reasons unclear to me 2. Borderline hypotension responded to midodrine 3. Coronary artery disease with PCI to the LAD and diagonal with known occlusion of his RCA 4. Long-term anticoagulation with Eliquis was discontinued recently for unclear reason and was placed back on Brilinta by PCP 5. Preoperative risk assessment for hip surgery 6. Obesity Plan 1. I advised the patient to go back on aspirin daily and Eliquis 5 mg twice daily considering his history of coronary artery disease, prior PCI last year and history of persistent atrial fibrillation requiring antiarrhythmic therapy 2. I discussed with him operative risk cardiac evans. I believe the patient can proceed with surgery. Aspirin can be held for 1 week prior to procedure and Eliquis for 3 to 4 days prior to procedure. Operative risk cardiac was reviewed with him and his family and they understood and agreed 3. Patient advised to notify me change in cardiac status or symptoms and keep his follow-up appointment 4. I reviewed with him the results of his recent lab work 5. We will see him back in 9 months and follow-up Surgical History Problems History of Cardiac catheterization with stent placement History of Complete colonoscopy History of Hernia repair History of Wrist surgery Current Meds Medication NameInstruction Ascorbic Acid 500 MG Oral TabletTAKE 2 TABLET DAILY. Aspirin EC 81 MG Oral Tablet Delayed ReleaseTake 1 tablet on Tuesday, Tuesday, and Tuesday Atorvastatin Calcium 40 MG Oral TabletTAKE 1 TABLET AT BEDTIME. Brilinta 90 MG Oral TabletTAKE 1 TABLET TWICE DAILY. Colace 100 MG Oral Capsule1 TAB DAILY Coreg 3.125 MG Oral TabletTAKE 1 TABLET TWICE DAILY WITH MEALS. Dextromethorphan-guaiFENes in 10-100 MG/5ML Oral Syrupas directed Digoxin 125 MCG Oral TabletTAKE 1 TABLET DAILY. Finasteride 5 MG Oral TabletTAKE 1 TABLET DAILY. Gabapentin 300 MG TABSTAKE 1 TABLET TWICE DAILY. Iron 325 MG TABSTAKE 1 TABLET 3 TIMES DAILY. Nik Oral PacketUSE DIRECTED. Keppra 500 MG Oral TabletTAKE 1 TABLET TWICE DAILY. Lactulose 20 GM/30ML Oral Solutionas directed Levsin 0.125 MG Oral TabletTAKE 1 TABLET 3-4 TIMES DAILY NEEDED. Linezolid 600 MG Oral TabletTAKE 1 TABLET EVERY 12 HOURS DAILY. Maalox Max SUSPUSE DIRECTED. Midodrine HCl - 10 MG Oral TabletTAKE 1 TABLET 3 TIMES DAILY. Mirtazapine 30 MG Oral TabletTAKE 1 TABLET AT BEDTIME. Multivitamin/Iron TABSTAKE 1 TABLET ONCE DAILY. Nitroglycerin 0.4 MG Sublingual Tablet SublingualPLACE 1 TABLET UNDER THE TONGUE EVERY 5 MINUTES FOR UP TO 3 DOSES NEEDED FOR CHEST PAIN.CALL 911 IF PA (more content not included)... Normal [employer] CBC AUTO DIFFon 10-11-2021 BASO # 0.1 103/ul Normal 0.0-0.1 [facility] Comment on above: Performed By: #### G ENTR #### [facility] [address] [place] [address] Dr. Chapin Beck Basophils/100 WBC (Bld) 0.6 % Normal 0.2-2.0 [facility] Comment on above: Performed By: #### G ENTR #### [facility] [address] [place] [address] Dr. Chapin Beck EO # 0.6 103/ul Normal 0.0-0.7 [facility] Comment on above: Performed By: #### G ENTR #### [facility] [address] [place] [address] Dr. Chapin Beck Eosinophils/100 WBC (Bld) 7.6 % Critically high 0.9-7.0 [facility] Comment on above: Performed By: #### G ENTR #### [facility] [address] [place] [address] Dr. Chapin Beck Erythrocyte distribution width (RBC) [Ratio] 14.5 % Normal 11.0-15.0 [facility] Comment on above: Performed By: #### G ENTR #### [facility] [address] [place] [address] Dr. Chapin Beck Hematocrit (Bld) [Volume fraction] 45.7 % Normal 42.0-54.0 [facility] Comment on above: Performed By: #### G ENTR #### [facility] [address] [place] [address] Dr. Chapin Beck Hemoglobin (Bld) [Mass/Vol] 14.4 g/dL Normal 14.0-18.0 [facility] Comment on above: Performed By: #### G ENTR #### [facility] [address] [place] [address] Dr. Chapin Beck IG # 0.07 10e3/ul Critically high 0.00-0.03 [facility] Comment on above: Performed By: #### G ENTR #### [facility] [address] [place] [address] Dr. Chapin Beck IG % 0.8 % Critically high 0.0-0.5 [facility] Comment on above: Performed By: #### G ENTR #### [facility] [address] [place] [address] Dr. Chapin Beck LYMPH # 2.3 103/ul Normal 1.2-3.8 [facility] Comment on above: Performed By: #### G ENTR #### [facility] [address] [place] [address] Dr. Chapin Beck Lymphocytes/100 WBC (Bld) 27.1 % Normal 20.5-60.0 [facility] Comment on above: Performed By: #### G ENTR #### [facility] [address] [place] [address] Dr. Chapin Beck MANUAL DIFF REQ NO Normal [facility] Comment on above: Performed By: #### G ENTR #### [facility] [address] [place] [address] Dr. Chapin Beck MCH (RBC) [Entitic mass] 26.5 pg Normal 25.9-34.0 [facility] Comment on above: Performed By: #### G ENTR #### [facility] [address] [place] [address] Dr. Chapin Beck MCHC (RBC) [Mass/Vol] 31.5 g/dL Normal 29.9-35.2 [facility] Comment on above: Performed By: #### G ENTR #### [facility] [address] [place] [address] Dr. Chapin Beck MCV (RBC) [Entitic vol] 84.0 fL Normal 80.0-94.0 [facility] Comment on above: Performed By: #### G ENTR #### [facility] [address] [place] [address] Dr. Chapin Beck MONO # 1.2 103/ul Critically high 0.3-0.8 [facility] Comment on above: Performed By: #### G ENTR #### [facility] [address] [place] [address] Dr. Chapin Beck Monocytes/100 WBC (Bld) 14.2 % Critically high 1.7-12.0 [facility] Comment on above: Performed By: #### G ENTR #### [facility] [address] [place] [address] Dr. Chapin Beck NEUT # 4.1 103/ul Normal 1.4-6.5 [facility] Comment on above: Performed By: #### G ENTR #### [facility] [address] [place] [address] Dr. Chapin Beck Neutrophils/100 WBC (Bld) 49.7 % Normal 43.0-75.0 [facility] Comment on above: Performed By: #### G ENTR #### [facility] [address] [place] [address] Dr. Chapin Beck Platelet mean volume (Bld) [Entitic vol] 9.1 fL Critically low 9.5-13.5 [facility] Comment on above: Performed By: #### G ENTR #### [facility] [address] [place] [address] Dr. Chapin Beck PLT 277 103/ul Normal 150-450 [facility] Comment on above: Performed By: #### G ENTR #### [facility] [address] [place] [address] Dr. Chapin Beck RBC 5.44 106/ul Normal 4.70-6.10 [facility] Comment on above: Performed By: #### G ENTR #### [facility] [address] [place] [address] Dr. Chapin Beck WBC 8.3 103/ul Normal 4.0-11.0 [facility] Comment on above: Performed By: #### G ENTR #### [facility] [address] [place] [address] Dr. Chapin Beck PROF CHEM 8 (BAS METB)on Anion gap [Moles/Vol] 12.3 mmol/L Normal Th [facility] Comment on above: Performed By: #### U AMIC #### [facility] [address] [place] [address] Dr. Chapin Beck Calcium [Mass/Vol] 9.0 mg/dL Normal 8.5-10.1 [facility] Comment on above: Performed By: #### U AMIC #### [facility] [address] [place] [address] [address] Chapin Beck Chloride [Moles/Vol] 105 mmol/L Normal 98-107 [facility] Comment on above: Performed By: #### U AMIC #### [facility] [address] [place] [address] [address] Chapin Beck CO2 [Moles/Vol] 24.7 mmol/L Normal 21.0-32.0 [facility] Comment on above: Performed By: #### U AMIC #### [facility] [address] [place] [address] [address] Chapin Beck Creatinine [Mass/Vol] 0.80 mg/dL Normal 0.70-1.30 [facility] Comment on above: Performed By: #### U AMIC #### [facility] [address] [place] [address] [address] Chapin Beck EGFR-AF ICELANDIC >60 Normal >=60 [facility] Comment on above: Performed By: #### U AMIC #### [facility] [address] [place] [address] [address] Chapin Beck EGFR-NON AF ICELANDIC >60 Normal >=60 [facility] Comment on above: Performed By: #### U AMIC #### [facility] [address] [place] [address] [address] Chapin Beck Glucose [Mass/Vol] 96 mg/dL Normal 74-106 [facility] Comment on above: Performed By: #### U AMIC #### [facility] [address] [place] [address] [address] Chapin Beck Potassium [Moles/Vol] 4.0 mmol/L Normal 3.5-5.1 [facility] Comment on above: Performed By: #### U AMIC #### [facility] [address] [place] [address] [address] Chapin Beck Sodium [Moles/Vol] 138 mmol/L Normal 136-145 [facility] Comment on above: Performed By: #### U AMIC #### [facility] [address] [place] [address] [address] Chapin Beck Urea nitrogen [Mass/Vol] 19.0 mg/dL Critically high 7.0-18.0 [facility] Comment on above: Performed By: #### U AMIC #### [facility] [address] [place] [address] [address] Chapin Beck Urea nitrogen/Creatinine [Mass ratio] 23.8 mg/mg Normal [facility] Comment on above: Performed By: #### U AMIC #### [facility] [address] [place] [address] [address] Chapin Beck CBC AUTO DIFFon 10-10-2021 BASO # 0.0 103/ul Normal 0.0-0.1 [facility] Comment on above: Performed By: #### B MP #### [facility] [address] [place] [address] Dr. Chapin Beck Basophils/100 WBC (Bld) 0.6 % Normal 0.2-2.0 [facility] Comment on above: Performed By: #### B MP #### [facility] [address] [place] [address] Dr. Chapin Beck EO # 0.6 103/ul Normal 0.0-0.7 [facility] Comment on above: Performed By: #### B MP #### [facility] [address] [place] [address] Dr. Chapin Beck Eosinophils/100 WBC (Bld) 7.7 % Critically high 0.9-7.0 [facility] Comment on above: Performed By: #### B MP #### [facility] [address] [place] [address] Dr. Chapin Beck Erythrocyte distribution width (RBC) [Ratio] 14.6 % Normal 11.0-15.0 [facility] Comment on above: Performed By: #### B MP #### [facility] [address] [place] [address] Dr. Chapin Beck Hematocrit (Bld) [Volume fraction] 41.6 % Critically low 42.0-54.0 [facility] Comment on above: Performed By: #### B MP #### [facility] [address] [place] [address] Dr. Chapin Beck Hemoglobin (Bld) [Mass/Vol] 13.1 g/dL Critically low 14.0-18.0 [facility] Comment on above: Performed By: #### B MP #### [facility] [address] [place] [address] Dr. Chapin Beck IG # 0.05 10e3/ul Critically high 0.00-0.03 [facility] Comment on above: Performed By: #### B MP #### [facility] [address] [place] [address] Dr. Chapin Beck IG % 0.7 % Critically high 0.0-0.5 [facility] Comment on above: Performed By: #### B MP #### [facility] [address] [place] [address] Dr. Chapin Beck LYMPH # 2.3 103/ul Normal 1.2-3.8 [facility] Comment on above: Performed By: #### B MP #### [facility] [address] [place] [address] Dr. Chapin Beck Lymphocytes/100 WBC (Bld) 32.6 % Normal 20.5-60.0 [facility] Comment on above: Performed By: #### B MP #### [facility] [address] [place] [address] Dr. Chapin Beck MANUAL DIFF REQ NO Normal [facility] Comment on above: Performed By: #### B MP #### [facility] [address] [place] [address] Dr. Chapin Beck MCH (RBC) [Entitic mass] 26.8 pg Normal 25.9-34.0 [facility] Comment on above: Performed By: #### B MP #### [facility] [address] [place] [address] Dr. Chapin Beck MCHC (RBC) [Mass/Vol] 31.5 g/dL Normal 29.9-35.2 [facility] Comment on above: Performed By: #### B MP #### [facility] [address] [place] [address] [address] Chapin Beck MCV (RBC) [Entitic vol] 85.1 fL Normal 80.0-94.0 [facility] Comment on above: Performed By: #### B MP #### [facility] [address] [place] [address] [address] Chapin Beck MONO # 1.0 103/ul Critically high 0.3-0.8 [facility] [facility] Comment on above: Performed By: #### B MP #### [facility] [address] [address] [address] Chapin Beck Monocytes/100 WBC (Bld) 14.2 % Critically high 1.7-12.0 [facility] Comment on above: Performed By: #### B MP #### [facility] [address] [place] [address] Dr. Chapin Beck NEUT # 3.1 103/ul Normal 1.4-6.5 [facility] Comment on above: Performed By: #### B MP #### [facility] [address] [place] [address] Dr. Chapin Beck Neutrophils/100 WBC (Bld) 44.2 % Normal 43.0-75.0 [facility] Comment on above: Performed By: #### B MP #### [facility] [address] [place] [address] Dr. Chapin Beck Platelet mean volume (Bld) [Entitic vol] 9.2 fL Critically low 9.5-13.5 [facility] Comment on above: Performed By: #### B MP #### [facility] [address] [place] [address] Dr. Chapin Beck PLT 267 103/ul Normal 150-450 [facility] Comment on above: Performed By: #### B MP #### [facility] [address] [place] [address] Dr. Chapin Beck RBC 4.89 106/ul Normal 4.70-6.10 [facility] Comment on above: Performed By: #### B MP #### [facility] [address] [place] [address] Dr. Chapin Beck WBC 7.1 103/ul Normal 4.0-11.0 [facility] Comment on above: Performed By: #### B MP #### [facility] [address] [place] [address] Dr. Chapin Beck CULTURE URINEon 10-10-2021 CULTURE URINE Isolate 1 Enterobacter cloacae complex >100,000 cfu/mL of ORGANISM 1 Enterobacter cloacae complex ANTIBIOTIC M.I.C RX STATUS Piperacillin/Tazobactam >=128 R F Cefazolin >=64 R F Ceftazidime >=64 R F Ceftriaxone 32 I F Ertapenem <=0.5 S F Imipenem <=0.25 S F Amikacin 16 S F Gentamicin >=16 R F Tobramycin >=16 R F Ciprofloxacin >=4 R F Levofloxacin >=8 R F Nitrofurantoin 64 I F Trimethoprim/Sulfamethoxaz ole >=320 R F Normal [facility] Comment on above: Performed By: #### U RCX #### [facility] [address] [place] [address] Dr. Chapin Beck PROF CHEM 8 (BAS METB)on Anion gap [Moles/Vol] 13.7 mmol/L Normal [facility] Comment on above: Performed By: #### G ENTR #### [facility] [address] [place] [address] Dr. Chapin Beck Calcium [Mass/Vol] 8.7 mg/dL Normal 8.5-10.1 [facility] Comment on above: Performed By: #### G ENTR #### [facility] [address] [place] [address] Dr. Chapin Beck Chloride [Moles/Vol] 105 mmol/L Normal 98-107 [facility] Comment on above: Performed By: #### G ENTR #### [facility] [address] [place] [address] Dr. Chapin Beck CO2 [Moles/Vol] 24.5 mmol/L Normal 21.0-32.0 [facility] Comment on above: Performed By: #### G ENTR #### [facility] [address] [place] [address] Dr. Chapin Beck Creatinine [Mass/Vol] 0.74 mg/dL Normal 0.70-1.30 [facility] Comment on above: Performed By: #### G ENTR #### [facility] [address] [place] [address] Dr. Chapin Beck EGFR-AF ICELANDIC >60 Normal >=60 [facility] Comment on above: Performed By: #### G ENTR #### [facility] [address] [place] [address] Dr. Chapin Beck EGFR-NON AF ICELANDIC >60 Normal >=60 [facility] Comment on above: Performed By: #### G ENTR #### [facility] [address] [place] [address] Dr. Chapin Beck Glucose [Mass/Vol] 96 mg/dL Normal 74-106 [facility] Comment on above: Performed By: #### G ENTR #### [facility] [address] [place] [address] Dr. Chapin Beck Potassium [Moles/Vol] 4.2 mmol/L Normal 3.5-5.1 [facility] Comment on above: Performed By: #### G ENTR #### [facility] [address] [place] [address] Dr. Chapin Beck Sodium [Moles/Vol] 139 mmol/L Normal 136-145 [facility] Comment on above: Performed By: #### G ENTR #### [facility] [address] [place] [address] Dr. Chapin Beck Urea nitrogen [Mass/Vol] 17.0 mg/dL Normal 7.0-18.0 [facility] Comment on above: Performed By: #### G ENTR #### [facility] [address] [place] [address] Dr. Chapin Beck Urea nitrogen/Creatinine [Mass ratio] 23.0 mg/mg Normal [facility] Comment on above: Performed By: #### G ENTR #### [facility] [address] [place] [address] Dr. Chapin Beck CBC AUTO DIFFon 10-09-2021 BASO # 0.0 103/ul Normal 0.0-0.1 [facility] Comment on above: Performed By: #### U AMIC #### [facility] [address] [place] [address] Dr. Chapin Beck Basophils/100 WBC (Bld) 0.3 % Normal 0.2-2.0 [facility] Comment on above: Performed By: #### U AMIC #### [facility] [address] [place] [address] Dr. Chapin Beck EO # 0.5 103/ul Normal 0.0-0.7 [facility] Comment on above: Performed By: #### U AMIC #### [facility] [address] [place] [address] Dr. Chapin Beck Eosinophils/100 WBC (Bld) 7.1 % Critically high 0.9-7.0 [facility] Comment on above: Performed By: #### U AMIC #### [facility] [address] [place] [address] Dr. Chapin Beck Erythrocyte distribution width (RBC) [Ratio] 14.6 % Normal 11.0-15.0 [facility] Comment on above: Performed By: #### U AMIC #### [facility] [address] [place] [address] Dr. Chapin Beck Hematocrit (Bld) [Volume fraction] 40.3 % Critically low 42.0-54.0 [facility] Comment on above: Performed By: #### U AMIC #### [facility] [address] [place] [address] Dr. Chapin Beck Hemoglobin (Bld) [Mass/Vol] 13.0 g/dL Critically low 14.0-18.0 [facility] Comment on above: Performed By: #### U AMIC #### [facility] [address] [place] [address] Dr. Chapin Beck IG # 0.04 10e3/ul Critically high 0.00-0.03 [facility] Comment on above: Performed By: #### U AMIC #### [facility] [address] [place] [address] Dr. Chapin Beck IG % 0.5 % Normal 0.0-0.5 [facility] Comment on above: Performed By: #### U AMIC #### [facility] [address] [place] [address] Dr. Chapin Beck LYMPH # 2.3 103/ul Normal 1.2-3.8 [facility] Comment on above: Performed By: #### U AMIC #### [facility] [address] [place] [address] Dr. Chapin Beck Lymphocytes/100 WBC (Bld) 31.9 % Normal 20.5-60.0 [facility] Comment on above: Performed By: #### U AMIC #### [facility] [address] [place] [address] Dr. Chapin Beck MANUAL DIFF REQ NO Normal [facility] Comment on above: Performed By: #### U AMIC #### [facility] [address] [place] [address] Dr. Chapin Beck MCH (RBC) [Entitic mass] 27.4 pg Normal 25.9-34.0 [facility] Comment on above: Performed By: #### U AMIC #### [facility] [address] [place] [address] Dr. Chapin Beck MCHC (RBC) [Mass/Vol] 32.3 g/dL Normal 29.9-35.2 [facility] Comment on above: Performed By: #### U AMIC #### [facility] [address] [place] [address] Dr. Chapin Beck MCV (RBC) [Entitic vol] 84.8 fL Normal 80.0-94.0 [facility] Comment on above: Performed By: #### U AMIC #### [facility] [address] [place] [address] Dr. Chapin Beck MONO # 0.8 103/ul Normal 0.3-0.8 [facility] Comment on above: Performed By: #### U AMIC #### [facility] [address] [place] [address] Dr. Chapin Beck Monocytes/100 WBC (Bld) 11.2 % Normal 1.7-12.0 [facility] Comment on above: Performed By: #### U AMIC #### [facility] [address] [place] [address] Dr. Chapin Beck NEUT # 3.6 103/ul Normal 1.4-6.5 [facility] Comment on above: Performed By: #### U AMIC #### [facility] [address] [place] [address] Dr. Chapin Beck Neutrophils/100 WBC (Bld) 49.0 % Normal 43.0-75.0 [facility] Comment on above: Performed By: #### U AMIC #### [facility] [address] [place] [address] Dr. Chapin Beck Platelet mean volume (Bld) [Entitic vol] 9.2 fL Critically low 9.5-13.5 [facility] Comment on above: Performed By: #### U AMIC #### [facility] [address] [place] [address] Dr. Chapin Beck PLT 266 103/ul Normal 150-450 [facility] Comment on above: Performed By: #### U AMIC #### [facility] [address] [place] [address] Dr. Chapin Beck RBC 4.75 106/ul Normal 4.70-6.10 [facility] Comment on above: Performed By: #### U AMIC #### [facility] [address] [place] [address] Dr. Chapin Beck WBC 7.3 103/ul Normal 4.0-11.0 [facility] Comment on above: Performed By: #### U AMIC #### [facility] [address] [place] [address] Dr. Chapin Beck PROF CHEM 8 (BAS METB)on Anion gap [Moles/Vol] 12.0 mmol/L Normal [facility] Comment on above: Performed By: #### B MP #### [facility] [address] [place] [address] Dr. Chapin Beck Calcium [Mass/Vol] 8.3 mg/dL Critically low 8.5-10.1 Th e [facility] Comment on above: Performed By: #### B MP #### [facility] [address] [address] [address] Chapin Beck Chloride [Moles/Vol] 105 mmol/L Normal 98-107 [facility] Comment on above: Performed By: #### B MP #### [facility] [address] [address] [address] Chapin Beck CO2 [Moles/Vol] 26.6 mmol/L Normal 21.0-32.0 [facility] Comment on above: Performed By: #### B MP #### [facility] [address] [place] [address] Dr. Chapin Beck Creatinine [Mass/Vol] 0.80 mg/dL Normal 0.70-1.30 [facility] Comment on above: Performed By: #### B MP #### [facility] [address] [place] [address] Dr. Chapin Beck EGFR-AF ICELANDIC >60 Normal >=60 [facility] Comment on above: Performed By: #### B MP #### [facility] [address] [place] [address] Dr. Chapin Beck EGFR-NON AF ICELANDIC >60 Normal >=60 [facility] Comment on above: Performed By: #### B MP #### [facility] [address] [place] [address] Dr. Chapin Beck Glucose [Mass/Vol] 88 mg/dL Normal 74-106 [facility] Comment on above: Performed By: #### B MP #### [facility] [address] [address] [address] Chapin Beck Potassium [Moles/Vol] 3.6 mmol/L Normal 3.5-5.1 [facility] Comment on above: Performed By: #### B MP #### [facility] [address] [place] [address] Dr. Chapin Beck Sodium [Moles/Vol] 140 mmol/L Normal 136-145 [facility] Comment on above: Performed By: #### B MP #### [facility] [address] [address] [address] Chapin Beck Urea nitrogen [Mass/Vol] 13.0 mg/dL Normal 7.0-18.0 [facility] Comment on above: Performed By: #### B MP #### [facility] [address] [address] [address] Chapin Beck Urea nitrogen/Creatinine [Mass ratio] 16.2 mg/mg Normal [facility] Comment on above: Performed By: #### B MP #### [facility] [address] [place] [address] Dr. Chapin Beck CBC AUTO DIFFon 10-08-2021 BASO # 0.0 103/ul Normal 0.0-0.1 [facility] Comment on above: Performed By: #### U AMIC #### [facility] [address] [place] [address] Dr. Chapin Beck Basophils/100 WBC (Bld) 0.3 % Normal 0.2-2.0 [facility] Comment on above: Performed By: #### U AMIC #### [facility] [address] [place] [address] Dr. Chapin Beck EO # 0.4 103/ul Normal 0.0-0.7 [facility] Comment on above: Performed By: #### U AMIC #### [facility] [address] [place] [address] Dr. Chapin Beck Eosinophils/100 WBC (Bld) 5.0 % Normal 0.9-7.0 [facility] Comment on above: Performed By: #### U AMIC #### [facility] [address] [place] [address] Dr. Chapin Beck Erythrocyte distribution width (RBC) [Ratio] 14.6 % Normal 11.0-15.0 [facility] Comment on above: Performed By: #### U AMIC #### [facility] [address] [place] [address] Dr. Chapin Beck Hematocrit (Bld) [Volume fraction] 40.0 % Critically low 42.0-54.0 [facility] Comment on above: Performed By: #### U AMIC #### [facility] [address] [place] [address] Dr. Chapin Beck Hemoglobin (Bld) [Mass/Vol] 12.9 g/dL Critically low 14.0-18.0 [facility] Comment on above: Performed By: #### U AMIC #### [facility] [address] [place] [address] Dr. Chapin Beck IG # 0.06 10e3/ul Critically high 0.00-0.03 [facility] Comment on above: Performed By: #### U AMIC #### [facility] [address] [place] [address] Dr. Chapin Beck IG % 0.8 % Critically high 0.0-0.5 [facility] Comment on above: Performed By: #### U AMIC #### [facility] [address] [place] [address] Dr. Chapin Beck LYMPH # 2.4 103/ul Normal 1.2-3.8 [facility] Comment on above: Performed By: #### U AMIC #### [facility] [address] [place] [address] Dr. Chapin Beck Lymphocytes/100 WBC (Bld) 31.1 % Normal 20.5-60.0 [facility] Comment on above: Performed By: #### U AMIC #### [facility] [address] [place] [address] Dr. Chapin Beck MANUAL DIFF REQ NO Normal [facility] Comment on above: Performed By: #### U AMIC #### [facility] [address] [place] [address] Dr. Chapin Beck MCH (RBC) [Entitic mass] 27.2 pg Normal 25.9-34.0 [facility] Comment on above: Performed By: #### U AMIC #### [facility] [address] [place] [address] Dr. Chapin Beck MCHC (RBC) [Mass/Vol] 32.3 g/dL Normal 29.9-35.2 [facility] Comment on above: Performed By: #### U AMIC #### [facility] [address] [address] [address] Chapin Beck MCV (RBC) [Entitic vol] 84.2 fL Normal 80.0-94.0 [facility] Comment on above: Performed By: #### U AMIC #### [facility] [address] [place] [address] Dr. Chapin Beck MONO # 0.8 103/ul Normal 0.3-0.8 [facility] Comment on above: Performed By: #### U AMIC #### [facility] [address] [place] [address] Dr. Chapin Beck Monocytes/100 WBC (Bld) 10.6 % Normal 1.7-12.0 [facility] Comment on above: Performed By: #### U AMIC #### [facility] [address] [place] [address] Dr. Chapin Beck NEUT # 4.1 103/ul Normal 1.4-6.5 [facility] Comment on above: Performed By: #### U AMIC #### [facility] [address] [place] [address] Dr. Chapin Beck Neutrophils/100 WBC (Bld) 52.2 % Normal 43.0-75.0 [facility] Comment on above: Performed By: #### U AMIC #### [facility] [address] [place] [address] Dr. Chapin Beck Platelet mean volume (Bld) [Entitic vol] 9.3 fL Critically low 9.5-13.5 [facility] Comment on above: Performed By: #### U AMIC #### [facility] [address] [place] [address] Dr. Chapin Beck PLT 252 103/ul Normal 150-450 [facility] Comment on above: Performed By: #### U AMIC #### [facility] [address] [place] [address] Dr. Chapin Beck RBC 4.75 106/ul Normal 4.70-6.10 [facility] Comment on above: Performed By: #### U AMIC #### [facility] [address] [address] [address] Chapin Beck WBC 7.8 103/ul Normal 4.0-11.0 [facility] Comment on above: Performed By: #### U AMIC #### [facility] [address] [place] [address] Dr. Chapin Beck PROF CHEM 8 (BAS METB)on Anion gap [Moles/Vol] 12.2 mmol/L Normal Th [facility] Comment on above: Performed By: #### B MP #### [facility] [address] [place] [address] Dr. Chapin Beck Calcium [Mass/Vol] 8.5 mg/dL Normal 8.5-10.1 [facility] Comment on above: Performed By: #### B MP #### [facility] [address] [place] [address] Dr. Chapin Beck Chloride [Moles/Vol] 107 mmol/L Normal 98-107 [facility] Comment on above: Performed By: #### B MP #### [facility] [address] [place] [address] Dr. Chapin Beck CO2 [Moles/Vol] 25.9 mmol/L Normal 21.0-32.0 [facility] Comment on above: Performed By: #### B MP #### [facility] [address] [place] [address] Dr. Chapin Beck Creatinine [Mass/Vol] 0.83 mg/dL Normal 0.70-1.30 [facility] Comment on above: Performed By: #### B MP #### [facility] [address] [place] [address] Dr. Chapin Beck EGFR-AF ICELANDIC >60 Normal >=60 [facility] Comment on above: Performed By: #### B MP #### [facility] [address] [place] [address] Dr. Chapin Beck EGFR-NON AF ICELANDIC >60 Normal >=60 [facility] Comment on above: Performed By: #### B MP #### [facility] [address] [address] [address] Chapin Beck Glucose [Mass/Vol] 106 mg/dL Normal 74-106 [facility] Comment on above: Performed By: #### B MP #### [facility] [address] [address] [address] Chapin Beck Potassium [Moles/Vol] 4.1 mmol/L Normal 3.5-5.1 [facility] Comment on above: Performed By: #### B MP #### [facility] [address] [place] [address] Dr. Chapin Beck Sodium [Moles/Vol] 141 mmol/L Normal 136-145 [facility] Comment on above: Performed By: #### B MP #### [facility] [address] [place] [address] Dr. Chapin Beck Urea nitrogen [Mass/Vol] 22.0 mg/dL Critically high 7.0-18.0 [facility] Comment on above: Performed By: #### B MP #### [facility] [address] [place] [address] Dr. Chapin Beck Urea nitrogen/Creatinine [Mass ratio] 26.5 mg/mg Normal [facility] Comment on above: Performed By: #### B MP #### [facility] [address] [place] [address] Dr. Chapin Beck BNPon 10-07-2021 Natriuretic peptide B (Bld) [Mass/Vol] 644.0 pg/mL Normal <=1,800.0 [facility] Comment on above: Performed By: #### U AMIC #### [facility] [address] [place] [address] Dr. Chapin Beck CBC W MANUAL DIFFon 10-08-19 ATYPICAL LYMPH # 0.37 103/ul Normal [facility] Comment on above: Performed By: #### G ENTR #### [facility] [address] [place] [address] Dr. Chapin Beck ATYPICAL LYMPH % 5 % Normal [facility] Comment on above: Performed By: #### G ENTR #### [facility] [address] [place] [address] Dr. Chapin Beck BAND # Normal 0.0-0.3 [facility] Comment on above: Performed By: #### G ENTR #### [facility] [address] [place] [address] Dr. Chapin Beck BAND % Normal 0-5 [facility] Comment on above: Performed By: #### G ENTR #### [facility] [address] [place] [address] Dr. Chapin Beck BASOM # 0.00 103/ul Normal 0.00-0.10 [facility] Comment on above: Performed By: #### G ENTR #### [facility] [address] [place] [address] Dr. Chapin Beck BASOM % 0.0 % Critically low 0.2-2.0 [facility] Comment on above: Performed By: #### G ENTR #### [facility] [address] [place] [address] Dr. Chapin Beck BLAST # Normal [facility] Comment on above: Performed By: #### G ENTR #### [facility] [address] [place] [address] Dr. Chapin Beck BLAST % Normal [facility] Comment on above: Performed By: #### G ENTR #### [facility] [address] [place] [address] Dr. Chapin Beck CORRECTED WBC Normal 4.0-11.0 [facility] Comment on above: Performed By: #### G ENTR #### [facility] [address] [place] [address] Dr. Chapin Beck EOS # 0.00 103/ul Normal 0.00-0.70 [facility] Comment on above: Performed By: #### G ENTR #### [facility] [address] [place] [address] Dr. Chapin Beck EOS% 0.0 % Critically low 0.9-7.0 [facility] Comment on above: Performed By: #### G ENTR #### [facility] [address] [place] [address] Dr. Chapin Beck HCT 42.2 % Normal 42.0-54.0 [facility] Comment on above: Performed By: #### G ENTR #### [facility] [address] [place] [address] Dr. Chapin Beck HGB 13.8 g/dl Critically low 14.0-18.0 [facility] Comment on above: Performed By: #### G ENTR #### [facility] [address] [place] [address] Dr. Chapin Beck LYMPHM # 1.26 103/ul Normal 1.20-3.80 [facility] Comment on above: Performed By: #### G ENTR #### [facility] [address] [place] [address] Dr. Chapin Beck LYMPHM% 17.0 % Critically low 20.5-60.0 [facility] Comment on above: Performed By: #### G ENTR #### [facility] [address] [place] [address] Dr. Chapin Beck MCH 27.4 pg Normal 25.9-34.0 [facility] Comment on above: Performed By: #### G ENTR #### [facility] [address] [place] [address] Dr. Chapin Beck MCHC 32.7 g/dl Normal 29.9-35.2 [facility] Comment on above: Performed By: #### G ENTR #### [facility] [address] [place] [address] Dr. Chapin Beck MCV 83.9 fL Normal 80.0-94.0 [facility] Comment on above: Performed By: #### G ENTR #### [facility] [address] [place] [address] Dr. Chapin Beck METAMYELOCYTE # Normal [facility] Comment on above: Performed By: #### G ENTR #### [facility] [address] [place] [address] Dr. Chapin Beck METAMYELOCYTE % Normal [facility] Comment on above: Performed By: #### G ENTR #### [facility] [address] [place], [place] [id number] Dr. Chapin Beck MONOM# 0.22 103/ul Critically low 0.30-0.80 [facility] Comment on above: Performed By: #### G ENTR #### [facility] [address] [place] [address] Dr. Chapin Beck MONOM% 3.0 % Normal 1.7-12.0 [facility] Comment on above: Performed By: #### G ENTR #### [facility] [address] [place] [address] Dr. Chapin Beck MPV 9.3 fL Critically low 9.5-13.5 [facility] Comment on above: Performed By: #### G ENTR #### [facility] [address] [place] [address] Dr. Chapin Beck MYELOCYTE # Normal [facility] Comment on above: Performed By: #### G ENTR #### [facility] [address] [place] [address] Dr. Chapin Beck MYELOCYTE % Normal [facility] Comment on above: Performed By: #### G ENTR #### [facility] [address] [place] [address] Dr. Chapin Beck NRBC Normal [facility] Comment on above: Performed By: #### G ENTR #### [facility] [address] [place] [address] Dr. Chapin Beck PLT 252 103/ul Normal 150-450 [facility] Comment on above: Performed By: #### G ENTR #### [facility] [address] [place] [address] Dr. Chapin Beck RBC 5.03 106/ul Normal 4.70-6.10 [facility] Comment on above: Performed By: #### G ENTR #### [facility] [address] [place] [address] Dr. Chapin Beck RDW 14.6 % Normal 11.0-15.0 [facility] Comment on above: Performed By: #### G ENTR #### [facility] [address] [place] [address] Dr. Chapin Beck SEG # 5.55 103/ul Normal 1.40-6.50 [facility] Comment on above: Performed By: #### G ENTR #### [facility] [address] [place] [address] Dr. Chapin Beck SEG % 75.0 % Normal 43.0-75.0 [facility] Comment on above: Performed By: #### G ENTR #### [facility] [address] [place] [address] Dr. Chapin Beck WBC 7.4 103/ul Normal 4.0-11.0 [facility] Comment on above: Performed By: #### G ENTR #### [facility] [address] [place] [address] Dr. Chapin Beck GENTAMICIN RANDOMon 10-08-19 22 GENTAMICIN 3.2 ug/mL Normal [facility] Comment on above: Performed By: #### G ENTR #### [facility] [address] [place] [address] Dr. Chapin Beck PROF CHEM 8 (BAS METB)on Anion gap [Moles/Vol] 14.5 mmol/L Normal [facility] Comment on above: Performed By: #### B MP #### [facility] [address] [place] [address] Dr. Chapin Beck Calcium [Mass/Vol] 8.6 mg/dL Normal 8.5-10.1 [facility] Comment on above: Performed By: #### B MP #### [facility] [address] [place] [address] Dr. Chapin Beck Chloride [Moles/Vol] 101 mmol/L Normal 98-107 [facility] Comment on above: Performed By: #### B MP #### [facility] [address] [place] [address] Dr. Chapin Beck CO2 [Moles/Vol] 25.0 mmol/L Normal 21.0-32.0 [facility] Comment on above: Performed By: #### B MP #### [facility] [address] [place] [address] Dr. Chapin Beck Creatinine [Mass/Vol] 0.89 mg/dL Normal 0.70-1.30 [facility] Comment on above: Performed By: #### B MP #### [facility] [address] [place] [address] Dr. Chapin Beck EGFR-AF ICELANDIC >60 Normal >=60 [facility] Comment on above: Performed By: #### B MP #### [facility] [address] [address] [address] Chapin Beck EGFR-NON AF ICELANDIC >60 Normal >=60 [facility] Comment on above: Performed By: #### B MP #### [facility] [address] [place] [address] Dr. Chapin Beck Glucose [Mass/Vol] 175 mg/dL Critically high 74-106 T [facility] Comment on above: Performed By: #### B MP #### [facility] [address] [place] [address] Dr. Chapin Beck Potassium [Moles/Vol] 4.5 mmol/L Normal 3.5-5.1 [facility] Comment on above: Performed By: #### B MP #### [facility] [address] [place] [address] Dr. Chapin Beck Sodium [Moles/Vol] 136 mmol/L Normal 136-145 [facility] Comment on above: Performed By: #### B MP #### [facility] [address] [place] [address] Dr. Chapin Beck Urea nitrogen [Mass/Vol] 17.0 mg/dL Normal 7.0-18.0 [facility] Comment on above: Performed By: #### B MP #### [facility] [address] [place] [address] Dr. Chapin Beck Urea nitrogen/Creatinine [Mass ratio] 19.1 mg/mg Normal [facility] Comment on above: Performed By: #### B MP #### [facility] [address] [place] [address] Dr. Chapin Beck CBC W MANUAL DIFFon 10-07-19 22 ATYPICAL LYMPH # 0.45 103/ul Normal [facility] Comment on above: Performed By: #### U AMIC #### [facility] [address] [address] [address] Chapin Beck ATYPICAL LYMPH % 7 % Normal [facility] Comment on above: Performed By: #### U AMIC #### [facility] [address] [place] [address] Dr. Chapin Beck BAND # Normal 0.0-0.3 [facility] Comment on above: Performed By: #### U AMIC #### [facility] [address] [address] [address] Chapin Beck BAND % Normal 0-5 [facility] Comment on above: Performed By: #### U AMIC #### [facility] [address] [place] [address] Dr. Chapin Beck BASOM # 0.00 103/ul Normal 0.00-0.10 [facility] Comment on above: Performed By: #### U AMIC #### [facility] [address] [place] [address] Dr. Chapin Beck BASOM % 0.0 % Critically low 0.2-2.0 [facility] Comment on above: Performed By: #### U AMIC #### [facility] [address] [place] [address] Dr. Chapin Beck BLAST # Normal [facility] Comment on above: Performed By: #### U AMIC #### [facility] [address] [place] [address] Dr. Chapin Beck BLAST % Normal [facility] Comment on above: Performed By: #### U AMIC #### [facility] [address] [place] [address] Dr. Chapin Beck CORRECTED WBC Normal 4.0-11.0 [facility] Comment on above: Performed By: #### U AMIC #### [facility] [address] [place] [address] Dr. Chapin Beck EOS # 0.13 103/ul Normal 0.00-0.70 [facility] Comment on above: Performed By: #### U AMIC #### [facility] [address] [place] [address] Dr. Chapin Beck EOS% 2.0 % Normal 0.9-7.0 [facility] Comment on above: Performed By: #### U AMIC #### [facility] [address] [place] [address] Dr. Chapin Beck HCT 44.5 % Normal 42.0-54.0 [facility] Comment on above: Performed By: #### U AMIC #### [facility] [address] [place] [address] Dr. Chapin Beck HGB 14.1 g/dl Normal 14.0-18.0 [facility] Comment on above: Performed By: #### U AMIC #### [facility] [address] [place] [address] Dr. Chapin Beck LYMPHM # 1.92 103/ul Normal 1.20-3.80 [facility] Comment on above: Performed By: #### U AMIC #### [facility] [address] [place] [address] Dr. Chapin Beck LYMPHM% 30.0 % Normal 20.5-60.0 [facility] Comment on above: Performed By: #### U AMIC #### [facility] [address] [place] [address] Dr. Chapin Beck MCH 26.9 pg Normal 25.9-34.0 [facility] Comment on above: Performed By: #### U AMIC #### [facility] [address] [place] [address] Dr. Chapin Beck MCHC 31.7 g/dl Normal 29.9-35.2 [facility] Comment on above: Performed By: #### U AMIC #### [facility] [address] [place] [address] Dr. Chapin Beck MCV 84.8 fL Normal 80.0-94.0 [facility] Comment on above: Performed By: #### U AMIC #### [facility] [address] [place] [address] Dr. Chapin Beck METAMYELOCYTE # 0.0 103/ul Normal [facility] Comment on above: Performed By: #### U AMIC #### [facility] [address] [address] [address] Chapin Beck METAMYELOCYTE % Normal [facility] Comment on above: Performed By: #### U AMIC #### [facility] [address] [address] [address] Chapin Beck MONOM# 0.51 103/ul Normal 0.30-0.80 [facility] Comment on above: Performed By: #### U AMIC #### [facility] [address] [address] [address] Chapin Beck MONOM% 8.0 % Normal 1.7-12.0 [facility] Comment on above: Performed By: #### U AMIC #### [facility] [address] [place] [address] Dr. Chapin Beck MPV 9.2 fL Critically low 9.5-13.5 [facility] Comment on above: Performed By: #### U AMIC #### [facility] [address] [address] [address] Chapin Beck MYELOCYTE # Normal [facility] Comment on above: Performed By: #### U AMIC #### [facility] [address] [address] [address] Chapin Beck MYELOCYTE % Normal [facility] Comment on above: Performed By: #### U AMIC #### [facility] [address] [address] [address] Chapin Beck NRBC Normal [facility] Comment on above: Performed By: #### U AMIC #### [facility] [address] [address] [address] Chapin Beck PLT 274 103/ul Normal 150-450 [facility] Comment on above: Performed By: #### U AMIC #### [facility] [address] [address] [address] Chapin Beck RBC 5.25 106/ul Normal 4.70-6.10 [facility] Comment on above: Performed By: #### U AMIC #### [facility] [address] [address] [address] Chapin Beck RDW 14.8 % Normal 11.0-15.0 [facility] Comment on above: Performed By: #### U AMIC #### [facility] [address] [address] [address] Chapin Beck SEG # 3.39 103/ul Normal 1.40-6.50 [facility] Comment on above: Performed By: #### U AMIC #### [facility] [address] [address] [address] Chapin Beck SEG % 53.0 % Normal 43.0-75.0 [facility] Comment on above: Performed By: #### U AMIC #### [facility] [address] [address] [address] Chapin Beck WBC 6.4 103/ul Normal 4.0-11.0 [facility] Comment on above: Performed By: #### U AMIC #### [facility] [address] [place] [address] Dr. Chapin Beck Covid-19 PCR (CVDTB)on 09-09 SARS-CoV-2 (COVID-19) RNA VITA+probe Ql (Unsp spec) Not detected Normal NOT DETECTED [facility] Comment on above: Result Comment: When diagnostic testing is negative, the possibility of a false negative should be considered in the context of a patient's recent exposures and the presence of clinical signs and symptoms consistent with SARS-CoV-2. This test is not yet approved or cleared by the [place] FDA. When there are no FDA-approved or cleared tests available, and other criteria are met, FDA can make tests available under an emergency access mechanism called an Emergency Use Authorization (EUA). The EUA for this test is supported by the [place] of Health and Human Service's declaration that circumstances exist to justify the emergency use of in vitro diagnostics for the detection and/or diagnosis of the virus that causes COVID-19. This EUA will remain in effect for the duration of the COVID-19 declaration justifying emergency of IVDs, unless it is terminated or revoked by the FDA (after which the test may no longer be used). Performed By: #### U AMIC #### [facility] [address] [place] [address] Dr. Chapin Beck ER URINE PROFILEon 2 Bilirubin Ql (U) Unable to perform te sting due to color interference. Abnormal NEGATIVE [facility] Comment on above: Performed By: #### B MP #### [facility] [address] [place] [address] Dr. Chapin Beck Clarity (U) TURBID Abnormal CLEAR [facility] Comment on above: Performed By: #### B MP #### [facility] [address] [place] [address] Dr. Chapin Beck Color (U) RED Abnormal YELLOW [facility] Comment on above: Performed By: #### B MP #### [facility] [address] [place] [address] Dr. Chapin Beck ERUAHD A micrscopic examina tion will be performed if indicated. Normal [facility] Comment on above: Performed By: #### B MP #### [facility] [address] [place] [address] Dr. Chapin Beck Glucose Ql (U) Unable to perform te sting due to color interference. Abnormal NEGATIVE [facility] Comment on above: Performed By: #### B MP #### [facility] [address] [place] [address] Dr. Chapin Beck Hemoglobin Ql (U) Unable to perform te sting due to color interference. Abnormal NEGATIVE [facility] Comment on above: Performed By: #### B MP #### [facility] [address] [place] [address] Dr. Chapin Beck Ketones Ql (U) Unable to perform te sting due to color interference. Abnormal NEGATIVE [facility] Comment on above: Performed By: #### B MP #### [facility] [address] [place] [address] Dr. Chapin Beck LEUKOCYTES Unable to perform te sting due to color interference. Abnormal NEGATIVE [facility] Comment on above: Performed By: #### B MP #### [facility] [address] [place] [address] Dr. Chapin Beck Nitrite Ql (U) Unable to perform te sting due to color interference. Abnormal NEGATIVE [facility] Comment on above: Performed By: #### B MP #### [facility] [address] [place] [address] Dr. Chapin Beck pH Unable to perform te sting due to color interference. Abnormal 5-9 [facility] Comment on above: Performed By: #### B MP #### [facility] [address] [place] [address] Dr. Chapin Beck SPEC GRAVITY 1.025 Normal 1.005-<=1. 025 [facility] Comment on above: Performed By: #### B MP #### [facility] [address] [place] [address] Dr. Chapin Beck UA PROTEIN Unable to perform te sting due to color interference. Normal NEGATIVE/ TRACE [facility] Comment on above: Performed By: #### B MP #### [facility] [address] [place] [address] Dr. Chapin Beck UR MICRO IND INDICATED Normal [facility] Comment on above: Performed By: #### B MP #### [facility] [address] [place] [address] Dr. Chapin Beck UROBILINOGEN Unable to perform te sting due to color interference. Normal 0.2 - 1.0 [facility] Comment on above: Performed By: #### B MP #### [facility] [address] [place] [address] Dr. Chapin Beck PROF 14(COMP METB)on 022 Albumin [Mass/Vol] 2.5 g/dL Critically low 3.4-5.0 Th e [facility] Comment on above: Performed By: #### G ENTR #### [facility] [address] [place] [address] Dr. Chapin Beck Albumin/Globulin [Mass ratio] 0.6 {ratio} Normal [facility] Comment on above: Performed By: #### G ENTR #### [facility] [address] [place] [address] Dr. Chapin Beck ALP [Catalytic activity/Vol] 81 U/L Normal 46-116 [facility] Comment on above: Performed By: #### G ENTR #### [facility] [address] [address] [address] Chapin Beck ALT [Catalytic activity/Vol] 13 U/L Critically low 16-63 [facility] Comment on above: Performed By: #### G ENTR #### [facility] [address] [address] [address] Chapin Beck Anion gap [Moles/Vol] 11.1 mmol/L Normal [facility] Comment on above: Performed By: #### G ENTR #### [facility] [address] [address] [address] Chapin Beck AST [Catalytic activity/Vol] 14 U/L Critically low 15-37 [facility] Comment on above: Performed By: #### G ENTR #### [facility] [address] [place] [address] Dr. Chapin eBck Bilirubin [Mass/Vol] 0.2 mg/dL Normal 0.2-1.0 [facility] Comment on above: Performed By: #### G ENTR #### [facility] [address] [address] [address] Chapin Beck Calcium [Mass/Vol] 8.6 mg/dL Normal 8.5-10.1 [facility] Comment on above: Performed By: #### G ENTR #### [facility] [address] [address] [address] Chapin Beck Chloride [Moles/Vol] 100 mmol/L Normal 98-107 [facility] Comment on above: Performed By: #### G ENTR #### [facility] [address] [address] [address] Chapin Beck CO2 [Moles/Vol] 27.3 mmol/L Normal 21.0-32.0 [facility] Comment on above: Performed By: #### G ENTR #### [facility] [address] [address] [address] Chapin Beck Creatinine [Mass/Vol] 0.94 mg/dL Normal 0.70-1.30 [facility] Comment on above: Performed By: #### G ENTR #### [facility] [address] [address] [address] Chapin Beck EGFR-AF ICELANDIC >60 Normal >=60 [facility] Comment on above: Performed By: #### G ENTR #### [facility] [address] [address] [address] Chapin Beck EGFR-NON AF ICELANDIC >60 Normal >=60 [facility] Comment on above: Performed By: #### G ENTR #### [facility] [address] [address] [address] Chapin Beck Globulin (S) [Mass/Vol] 4.5 g/dL Normal [facility] Comment on above: Performed By: #### G ENTR #### [facility] [address] [place] [address] Dr. Chapin Beck Glucose [Mass/Vol] 129 mg/dL Critically high 74-106 T [facility] Comment on above: Performed By: #### G ENTR #### [facility] [address] [address] [address] Chapin Beck Potassium [Moles/Vol] 4.4 mmol/L Normal 3.5-5.1 [facility] Comment on above: Performed By: #### G ENTR #### [facility] [address] [place] [address] Dr. Chapin Beck Protein [Mass/Vol] 7.0 g/dL Normal 6.4-8.2 [facility] Comment on above: Performed By: #### G ENTR #### [facility] [address] [address] [address] Chapin Beck Sodium [Moles/Vol] 134 mmol/L Critically low 136-145 [facility] Comment on above: Performed By: #### G ENTR #### [facility] [address] [address] [address] Chapin Beck Urea nitrogen [Mass/Vol] 20.0 mg/dL Critically high 7.0-18.0 [facility] Comment on above: Performed By: #### G ENTR #### [facility] [address] [place] [address] Dr. Chapin Beck Urea nitrogen/Creatinine [Mass ratio] 21.3 mg/mg Normal [facility] Comment on above: Performed By: #### G ENTR #### [facility] [address] [place] [address] Dr. Chapin Beck PROTIMEon 10-06-2021 INR Coag (PPP) [Relative time] 1.16 {INR} Normal [facility] Comment on above: Performed By: #### U AMIC #### [facility] [address] [place] [address] Dr. Chapin Beck INR GUIDELINES SEE BELOW Normal [facility] Comment on above: Result Comment: SANA RED INR: 2.0 - 3.0 CONDITIONS NOT LISTED BELOW 2.5 - 3.5 FOR PROSTHETIC HEART VALVE REPLACEMENT 2.5 - 3.5 RECURRENT THROMBOSIS Performed By: #### U AMIC #### [facility] [address] [place] [address] Dr. Chapin Beck PT Coag (PPP) [Time] 12.4 s Critically high 9.0-11.6 [facility] Comment on above: Performed By: #### U AMIC #### [facility] [address] [place] [address] Dr. Chapin Beck URINE MICROSCOPIC ONLYon BACTERIA NONE SEEN Normal NONE SEEN [facility] Comment on above: Performed By: #### B MP #### [facility] [address] [place] [address] Dr. Chapin Beck Bacteria identified Cx Nom (U) NOT INDICATED Normal [facility] Comment on above: Performed By: #### B MP #### [facility] [address] [place] [address] Dr. Chapin Beck CAST NONE SEEN Normal NONE SEEN [facility] Comment on above: Performed By: #### B MP #### [facility] [address] [place] [address] Dr. Chapin Beck Crystals LM Nom (Urine sed) NONE SEEN Normal NONE SEEN [facility] Comment on above: Performed By: #### B MP #### [facility] [address] [place] [address] Dr. Chapin Beck Epithelial cells LM Ql (Urine sed) RARE Normal NONE SEEN /RARE [facility] Comment on above: Performed By: #### B MP #### [facility] [address] [place] [address] Dr. Chapin Beck MUCOUS NONE SEEN Normal NONE SEEN [facility] Comment on above: Performed By: #### B MP #### [facility] [address] [place] [address] Dr. Chapin Beck RBC (U) [#/Vol] /uL Abnormal 0-2 [facility] Comment on above: Performed By: #### B MP #### [facility] [address] [place] [address] Dr. Chapin Beck WBC 5-10 Abnormal NONE SEEN [facility] Comment on above: Performed By: #### B MP #### [facility] [address] [place] [address] Dr. Chapin Beck CULTURE URINEon 09-10-2021 CULTURE URINE Isolate 1 Enterobacter cloacae complex 100,000 cfu/mL of Isolate 2 Pseudomonas aeruginosa >100,000 cfu/mL of ORGANISM 1 Enterobacter cloacae complex ANTIBIOTIC M.I.C RX STATUS Piperacillin/Tazobactam 16 S F Cefazolin >=64 R F Ceftazidime 4 S F Ceftriaxone 4 S F Ertapenem <=0.5 S F Imipenem <=0.25 S F Amikacin <=2 S F Gentamicin 8 I F Tobramycin <=1 S F Ciprofloxacin >=4 R F Levofloxacin 4 I F Nitrofurantoin 64 I F Trimethoprim/Sulfamethoxaz ole <=20 S F ORGANISM 2 Pseudomonas aeruginosa ANTIBIOTIC M.I.C RX STATUS Piperacillin/Tazobactam 8 S F Ceftazidime 4 S F Imipenem 1 S F Amikacin <=2 S F Gentamicin <=1 S F Tobramycin <=1 S F Ciprofloxacin <=0.25 S F Levofloxacin 0.25 S F Normal [facility] Comment on above: Performed By: #### B MP #### [facility] [address] [place] [address] Dr. Chapin Beck UA RANDOM W/MICROSCOPICon BACTERIA SMALL Abnormal NONE SEEN [facility] Comment on above: Performed By: #### G ENTR #### [facility] [address] [place] [address] Dr. Chapin Beck Bilirubin Ql (U) Negative Normal NEGATIVE [facility] Comment on above: Performed By: #### G ENTR #### [facility] [address] [place] [address] Dr. Chapin Beck CAST NONE SEEN Normal NONE SEEN [facility] Comment on above: Performed By: #### G ENTR #### [facility] [address] [place] [address] Dr. Chapin Beck Clarity (U) CLEAR Normal CLEAR [facility] Comment on above: Performed By: #### G ENTR #### [facility] [address] [place] [address] Dr. Chapin Beck Color (U) LT. YELLOW Normal YELLOW [facility] Comment on above: Performed By: #### G ENTR #### [facility] [address] [place] [address] Dr. Chapin Beck Crystals LM Nom (Urine sed) NONE SEEN Normal NONE SEEN [facility] Comment on above: Performed By: #### G ENTR #### [facility] [address] [place] [address] Dr. Chapin Beck Epithelial cells LM Ql (Urine sed) RARE Normal NONE SEEN /RARE [facility] Comment on above: Performed By: #### G ENTR #### [facility] [address] [place] [address] Dr. Chapin Beck Glucose Ql (U) Negative Normal NEGATIVE [facility] Comment on above: Performed By: #### G ENTR #### [facility] [address] [place] [address] Dr. Chapin Beck Hemoglobin Ql (U) LARGE Abnormal NEGATIVE [facility] Comment on above: Performed By: #### G ENTR #### [facility] [address] [place] [address] Dr. Chapin Beck Ketones Ql (U) Negative Normal NEGATIVE [facility] Comment on above: Performed By: #### G ENTR #### [facility] [address] [place], [place] [id number] Dr. Chapin Beck LEUKOCYTES MODERATE Abnormal NEGATIVE [facility] Comment on above: Performed By: #### G ENTR #### [facility] [address] [place] [address] Dr. Chapin Beck MUCOUS NONE SEEN Normal NONE SEEN [facility] Comment on above: Performed By: #### G ENTR #### [facility] [address] [place] [address] Dr. Chapin Beck Nitrite Ql (U) Positive Abnormal NEGATIVE [facility] Comment on above: Performed By: #### G ENTR #### [facility] [address] [place] [address] Dr. Chapin Beck pH (U) 5.5 [pH] Normal 5-9 [facility] Comment on above: Performed By: #### G ENTR #### [facility] [address] [place] [address] Dr. Chapin Beck RBC 10-20 Abnormal 0-2 [facility] Comment on above: Performed By: #### G ENTR #### [facility] [address] [place] [address] Dr. Chapin Beck SPEC GRAVITY 1.020 Normal 1.005-<=1. 025 [facility] Comment on above: Performed By: #### G ENTR #### [facility] [address] [place] [address] Dr. Chapin Beck UA PROTEIN Negative Normal NEGATIVE/ TRACE [facility] Comment on above: Performed By: #### G ENTR #### [facility] [address] [place] [address] Dr. Chapin Beck Urobilinogen Qn (U) 0.2 {Sami'U}/dL Normal 0.2 - 1. 0 [facility] Comment on above: Performed By: #### G ENTR #### [facility] [address] [place] [address] Dr. Chapin Beck WBC 5-10 Abnormal NONE SEEN [facility] Comment on above: Performed By: #### G ENTR #### [facility] [address] [place] [address] Dr. Chapin Beck Basic Metabolic Panelon 07-2 Calcium [Mass/Vol] 9.2 mg/dL Normal 8.2-10.2 [facility] Comment on above: Result Comment: PERF ORMED BY: [place] [address] PATHOLOGIST VENDING MACHINE TECHNICIAN CHELSY BHAGAT M.D. Performed By: #### A ERC #### [address] Chloride [Moles/Vol] 97 mmol/L Normal 95-114 [facility] Comment on above: Performed By: #### A ERC #### [address] CO2 [Moles/Vol] 26.1 mmol/L Normal 22.0-30.0 [facility] Comment on above: Performed By: #### A ERC #### [address] Creatinine [Mass/Vol] 0.72 mg/dL Normal 0.64-1.27 [facility] Comment on above: Performed By: #### A ERC #### [address] Estimated GFR ( Altagracia > 60 [facility] Comment on above: Result Comment: GFR estimated reference range: According to KDOQI guidelines, <60 ml/min/1.73m2 is sufficient to diagnose a patient with chronic kidney disease. Performed By: #### A ERC #### [address] Estimated GFR (Non- Am > 60 [facility] Comment on above: Performed By: #### A ERC #### [address] Glucose [Mass/Vol] 91 mg/dL Normal 70-100 [facility] Comment on above: Result Comment: [place] Glucose Reference Range is dependent on time and content of last meal. Glucose of more than 200 mg/dL in a nonstressed, ambulatory subject supports the diagnosis of Diabetes Mellitus. ADA recommended reference range Performed By: #### A ERC #### [facility] [address] Potassium [Moles/Vol] 4.6 mmol/L Normal 3.5-5.1 [facility] Comment on above: Performed By: #### A ERC #### [facility] [address] Sodium [Moles/Vol] 132 mmol/L Low 136-146 [facility] Comment on above: Performed By: #### A ERC #### [facility] [address] Urea nitrogen [Mass/Vol] 16 mg/dL Normal 9-23 [facility] Comment on above: Performed By: #### A ERC #### [facility] [address] Basophils Auto (Bld) [#/Vol] Ordered By: Soham Cash on 08-24-2021 Basophils (Bld) [#/Vol] 0.1 10*3/uL 0.0-0.2 [facility] Basophils/100 WBC Auto (Bld) Ordered By: Soham Cash on 08-24-2021 Basophils/100 WBC (Bld) 0.7 % [facility] Blood hemoglobin measurement (mass/volume)Ordered By: Soham Cash on 08-24-2021 Hemoglobin (Bld) [Mass/Vol] 14.1 g/dL 13.0-17.0 [facility] Blood leukocytes automated c ount (number/volume)Ordered By: Soham Cash on 08-24-2021 WBC (Bld) [#/Vol] 8.1 10*3/uL 4.5-11.0 [facility] Complete Blood Count Auto Di ffon 08-24-2021 Basophils (Bld) [#/Vol] 0.1 10*3/uL Normal 0.0-0.2 [facility] Comment on above: Result Comment: PERF ORMED BY: [facility] [address] [place] [address] PATHOLOGIST VENDING MACHINE TECHNICIAN CHELSY BHAGAT M.D. Performed By: #### B MP, CBC ####[address] Basophils/100 WBC (Bld) 0.7 % Normal . [facility] Comment on above: Performed By: #### B MP, CBC ####[address] Eosinophils (Bld) [#/Vol] 0.5 10*3/uL High 0.0-0.45 [facility] Comment on above: Performed By: #### B MP, CBC ####[address] Eosinophils/100 WBC (Bld) 6.6 % Normal . [facility] Comment on above: Performed By: #### B MP, CBC ####[address] Erythrocyte distribution width (RBC) [Ratio] 16.1 % High 12.0-14.8 [facility] Comment on above: Performed By: #### B MP, CBC ####[address] Hematocrit (Bld) [Volume fraction] 43.7 % Normal 38.8-50.0 [facility] Comment on above: Performed By: #### B MP, CBC ####[address] Hemoglobin (Bld) [Mass/Vol] 14.1 g/dL Normal 13.0-17.0 [facility] Comment on above: Performed By: #### B MP, CBC ####[address] Lymphocytes (Bld) [#/Vol] 2.0 10*3/uL Normal 1.00-4.8 [facility] Comment on above: Performed By: #### B MP, CBC ####[address] Lymphocytes/100 WBC (Bld) 24.5 % Normal . [facility] Comment on above: Performed By: #### B MP, CBC ####[address] [place] [address] [place] MCH (RBC) [Entitic mass] 27.2 pg Low 27.5-35.2 [facility] Comment on above: Performed By: #### B MP, CBC ####[address] MCV (RBC) [Entitic vol] 84.1 fL Normal 83.5-101 [facility] Comment on above: Performed By: #### B MP, CBC ####[address] Mean Corpuscular HGB Conc 32.3 g/dL Low 32.5-35.6 [facility] Comment on above: Performed By: #### B MP, CBC ####[address] Monocytes (Bld) [#/Vol] 1.3 10*3/uL High 0.0-0.8 [facility] Comment on above: Performed By: #### B MP, CBC ####[address] Monocytes/100 WBC (Bld) 15.7 % Normal . [facility] Comment on above: Performed By: #### B MP, CBC ####[address] Neutrophils (Bld) [#/Vol] 4.3 10*3/uL Normal 1.8-7.7 [facility] Comment on above: Performed By: #### B MP, CBC ####[address] Neutrophils/100 WBC (Bld) 52.5 % Normal . [facility] Comment on above: Performed By: #### B MP, CBC ####[address] Nucleated RBC/100 WBC (Bld) [Ratio] 0.1 % Normal 0-0.5 [facility] Comment on above: Performed By: #### B MP, CBC ####[address] [place] [address] [place] Platelet mean volume (Bld) [Entitic vol] 7.7 fL Normal 6.6-10.1 [facility] Comment on above: Performed By: #### B MP, CBC ####[facility] [place] [id number] [facility] Platelets (Bld) [#/Vol] 299 10*3/uL Normal 150-450 [facility] Comment on above: Performed By: #### B MP, CBC ####[address] RBC (Bld) [#/Vol] 5.20 10*6/uL Normal 3.90-5.60 [facility] Comment on above: Performed By: #### B MP, CBC ####[place] [id number] [address] WBC (Bld) [#/Vol] 8.1 10*3/uL Normal 4.5-11.0 [facility] Comment on above: Performed By: #### B MP, CBC ####[address] Creatinine and Glomerular fi ltration rate.predicted panel (S/P/Bld)Ordered By: Soham Cash on 08-24-2021 Creatinine [Mass/Vol] 0.72 mg/dL 0.64-1.27 [facility] Eosinophils Auto (Bld) [#/Vo l]Ordered By: Soham Cash on 08-24-2021 Eosinophils (Bld) [#/Vol] 0.5 10*3/uL 0.0-0.45 [facility] Eosinophils/100 WBC Auto (Bl d)Ordered By: Soham Cash on 08-24-2021 Eosinophils/100 WBC (Bld) 6.6 % [facility] Erythrocyte distribution wid th Auto (RBC) [Ratio]Ordered By: Soham Cash on 08-24-2021 Erythrocyte distribution width (RBC) [Ratio] 16.1 % 12.0-14.8 [facility] Estimated glomerular filtrat ion rate (GFR) non- AmericanOrdered By: Soham Cash on 08-24-2021 GFR/1.73 sq M.predicted among non-blacks MDRD (S/P/Bld) [Vol rate/Area] > 60 mL/Min [facility] Hematocrit Auto (Bld) [Volum e fraction]Ordered By: Soham Cash on 08-24-2021 Hematocrit (Bld) [Volume fraction] 43.7 % 38.8-50.0 [facility] - Hematology and Cell countsOrdered By: Soham Cash on 08-24-2021 Nucleated RBC/100 WBC (Bld) [Ratio] 0.1 % 0-0.5 [facility] Lymphocytes Auto (Bld) [#/Vo l]Ordered By: Soham Cash on 08-24-2021 Lymphocytes (Bld) [#/Vol] 2.0 10*3/uL 1.00-4.8 [facility] Lymphocytes/100 WBC Auto (Bl d)Ordered By: Soham Cash on 08-24-2021 Lymphocytes/100 WBC (Bld) 24.5 % [facility] MCH Auto (RBC) [Entitic mass ]Ordered By: Soham Cash on 08-24-2021 MCH (RBC) [Entitic mass] 27.2 pg 27.5-35.2 [facility] MCHC Auto (RBC) [Mass/Vol]Or dered By: Soham Cash on 08-24-2021 MCHC (RBC) [Mass/Vol] 32.3 g/dL 32.5-35.6 [facility] MCV Auto (RBC) [Entitic vol] Ordered By: Soham Cash on 08-24-2021 MCV (RBC) [Entitic vol] 84.1 fL 83.5-101 [facility] Monocytes Auto (Bld) [#/Vol] Ordered By: Soham Cash on 08-24-2021 Monocytes (Bld) [#/Vol] 1.3 10*3/uL 0.0-0.8 [facility] Monocytes/100 WBC Auto (Bld) Ordered By: Soham Cash on 08-24-2021 Monocytes/100 WBC (Bld) 15.7 % [facility] Neutrophils Auto (Bld) [#/Vo l]Ordered By: Soham Cash on 08-24-2021 Neutrophils (Bld) [#/Vol] 4.3 10*3/uL 1.8-7.7 [facility] Neutrophils/100 WBC Auto (Bl d)Ordered By: Soham Cash on 08-24-2021 Neutrophils/100 WBC (Bld) 52.5 % [facility] No Panel InformationOrdered By: Soham Cash on 08-24-2021 Estimated GFR () > 60 mL/Min [facility] Comment on above: GFR estimated refere nce range: According to KDOQI guidelines, <60 ml/min/1.73m2 is sufficient to diagnose a patient with chronic kidney disease. Pharmacy Creatinine Clearance (Chem N/A [facility] PST Type and Screenon 2021 ABO and Rh group Nom (Bld) Blood group O Rh(D) positive Normal [facility] Comment on above: Order Comment: Date of Surgery: [id number] # of PRBC units on hold?: 2 Result Comment: PERF ORMED BY: [facility] [address] [place] [address] PATHOLOGIST VENDING MACHINE TECHNICIAN CHELSY BHAGAT M.D. Order Comment: Date of Surgery: [id number] # of PRBC units on hold?: 2 Platelet mean volume Auto (B ld) [Entitic vol]Ordered By: Soham Cash on 08-24-2021 Platelet mean volume (Bld) [Entitic vol] 7.7 fL 6.6-10.1 [facility] Platelets Auto (Bld) [#/Vol] Ordered By: Soham Cash on 08-24-2021 Platelets (Bld) [#/Vol] 299 10*3/uL 150-450 [facility] RBC Auto (Bld) [#/Vol]Ordere d By: Soham Cash on 08-24-2021 RBC (Bld) [#/Vol] 5.20 10*6/uL 3.90-5.60 [facility] Serum or plasma calcium kirstie urement (mass/volume)Ordered By: Soham Cash on 08-24-2021 Calcium [Mass/Vol] 9.2 mg/dL 8.2-10.2 [facility] Serum or plasma chloride codie surement (moles/volume)Ordered By: Soham Cash on 08-24-2021 Chloride [Moles/Vol] 97 mmol/L 95-114 [facility] Serum or plasma glucose kirstie urement (mass/volume)Ordered By: Soham Cash on 08-24-2021 Glucose [Mass/Vol] 91 mg/dL 70-100 [facility] Comment on above: ADA recommended refe rence range Random Glucose Reference Range is dependent on time and content of last meal. Glucose of more than 200 mg/dL in a nonstressed, ambulatory subject supports the diagnosis of Diabetes Mellitus. Serum or plasma potassium me asurement (moles/volume)Ordered By: Soham Cash on 08-24-2021 Potassium [Moles/Vol] 4.6 mmol/L 3.5-5.1 [facility] Serum or plasma sodium measu rement (moles/volume)Ordered By: Soham Cash on 08-24-2021 Sodium [Moles/Vol] 132 mmol/L 136-146 [facility] Serum or plasma total carbon dioxide measurement (moles/volume)Ordered By: Soham Cash on 08-24-2021 CO2 [Moles/Vol] 26.1 mmol/L 22.0-30.0 [facility] Serum or plasma urea nitroge n measurement (mass/volume)Ordered By: Soham Cash on 08-24-2021 Urea nitrogen [Mass/Vol] 16 mg/dL 9-23 [facility] XR hip RT min 2V(w/wo pelvis )*on 08-24-2021 XR hip RT min 2V(w/wo pelvis)* [facility] [place] [address] XRay Report Signed Patient: Angella Pradhan MR#: [id number] : 1945 Acct:[id number] Age/Sex: 75 / M ADM Date: 08/24/21 Loc: PS Room: Type: [facility] Attending Dr: Soham Cash Jr, DO Copies to: Soham Cash Jr, DO Ordering Provider: Soham Cash Jr, DO Date of Service: 08/24/21 XR/XR hip RT min 2V(w/wo pelvis)*: pre-op right GAVIN RIGHT HIP - 2 views: 1 view pelvis CLINICAL HISTORY: Preop right total hip replacement. COMPARISON: Hip series 05/22/2021 FINDINGS: Partially visualized left hip prosthesis is in place without radiographic complication. Right hip demonstrates severe degenerative change with likely component of avascular necrosis with femoral head collapse seen. Additional degenerative changes seen involving the visualized lower lumbar spine, SI joints and pubic symphysis. No acute bony process is seen. XR/XR hip RT min 2V(w/wo pelvis)* IMPRESSION: SEVERE DEGENERATIVE CHANGES OF THE RIGHT HIP WITH LIKELY COMPONENT OF AVASCULAR NECROSIS WITH FEMORAL HEAD COLLAPSE. Impression dictated by: Horace Stark Jr., D.OBetsey08/24/2021 2:50 PM Dictation Location: [place] [address] Transcribed By: [facility] 08/24/21 1450 Dictated By: Horace Stark Jr, DO 08/24/21 1448 Signed By: 08/24/21 1450 [facility] MRI PELVIS WO CONon 07-11-19 MRI PELVIS WO CON EXAMINATION: MRI PEL VIS WO CON HISTORY: Chronic ulcer of sacral region COMPARISON: No relevant comparison available. TECHNIQUE: A comprehensive examination was performed utilizing a variety of imaging planes and imaging parameters to optimize visualization of suspected pathology. Images were obtained without contrast. FINDINGS: BOWEL/MESENTERY: No visible mass, obstruction, or bowel wall thickening. ABDOMINAL WALL: Small fat filled left inguinal hernia without strangulation. URINARY BLADDER: Ghotra catheter in place. Slight wall thickening, likely muscular hypertrophy. PELVIC NODES: Normal. No adenopathy. PELVIC ORGANS: Enlarged prostate without appreciable mass. BONES: Advanced degenerative changes of the right hip joint with subchondral cysts, sclerosis, and bone remodeling. Left hip replacement. OTHER: Area of decubitus ulcer marked with capsules surrounding the area. Small defect present within the skin and subcutaneous fat posterior to the lower sacrum, and coccyx. No bone edema or appreciable extension to the bone. IMPRESSION: 1. Decubitus ulcer without appreciable involvement of the sacrum or coccyx. This appears to be confined to the skin and subcutaneous fat. 2. Small fat filled left inguinal hernia without strangulation. 3. Enlarged prostate. 4. Advanced degenerative changes in right hip joint. Left hip replacement. Electronically authenticated by: SIVAN MOTT Date: 2021-07-10 18:35 Normal [facility] Office Visit (Cardiology)on 06-19-2021 Follow-up visit Diagnoses/Problems Assessed CAD (coronary artery disease) (414.00) (I25.10) Orders CAD (coronary artery disease), Status post insertion of drug eluting coronary artery stent Start: Aspirin EC 81 MG Oral Tablet Delayed Release; Take 1 tablet on Tuesday, Tuesday, and Tuesday IO EKG Electrocardiogram- 12 Lead; Status:Complete; Done: 19Jun2021 Patient Instructions patient to continue Keep follow up as scheduled Chief Complaint ANGELLA PRADHAN is being seen for a cardiovascular evaluation . BP CHECK AND EKG DUE TO PT SYMPTOMS. ANGELLA PRADHAN is being seen for BRADYCARDIA, LOW BP, AND PALPS. History of Present Illness Patient is here for blood pressure check and for follow-up from recent hospitalization apparently was seen by Dr. Arredondo for atrial fibrillation he was placed on sotalol. His medication was adjusted. He was started on Eliquis and his Brilinta was discontinued. Patient has been having problems with low blood pressure and midodrine was added. Today he denies any complaint. Blood pressure remains on the low range Assessment 1. Atrial fibrillation currently on sotalol currently in sinus rhythm with normal QTc interval 2. Borderline hypotension responded to midodrine 3. Coronary artery disease with complex PCI last year Plan 1. Remain on the same medication but take aspirin 3 times weekly considering coronary artery disease 2. Use midodrine for low blood pressure 3. Patient advised to notify me change in cardiac status or symptoms and keep his follow-up appointment Active Problems Problems CAD (coronary artery disease) (414.00) (I25.10) Assessed By: Elen Walter; Last Assessed: 19 Jun 2021 Current Meds Medication NameInstruction Digoxin 125 MCG Oral TabletTAKE 1 TABLET DAILY. Eliquis 5 MG Oral TabletTake 1 tablet twice daily Finasteride 5 MG Oral TabletTAKE 1 TABLET DAILY. Gabapentin 300 MG TABSTAKE 1 TABLET TWICE DAILY. Iron 325 MG TABSTAKE 1 TABLET 3 TIMES DAILY. Keppra 500 MG Oral TabletTAKE 1 TABLET TWICE DAILY. Levaquin 500 MG TABSTAKE 1 TABLET DAILY UNTIL FINISHED. Levsin 0.125 MG Oral TabletTAKE 1 TABLET 3-4 TIMES DAILY NEEDED. Midodrine HCl - 10 MG Oral TabletTAKE 1 TABLET 3 TIMES DAILY. Nitroglycerin 0.4 MG Sublingual Tablet SublingualPLACE 1 TABLET UNDER THE TONGUE EVERY 5 MINUTES FOR UP TO 3 DOSES NEEDED FOR CHEST PAIN.CALL 911 IF PAIN PERSISTS. Omeprazole 40 MG Oral Capsule Delayed ReleaseTake one daily oxyCODONE HCl - 5 MG Oral TabletTAKE 1 TABLET EVERY 4 HOURS NEEDED FOR PAIN. Probiotic CAPSUSE DIRECTED. Senna 8.6 MG Oral TabletTAKE DIRECTED. Sotalol HCl (AF) 120 MG Oral TabletTAKE 1 TABLET EVERY 12 HOURS DAILY. Tamsulosin HCl - 0.4 MG Oral CapsuleTAKE 1 CAPSULE BY MOUTH ONCE DAILY Vitamin D3 CAPSTAKE 1 CAPSULE Daily Zinc Sulfate 140 (50 Zn) MG Oral TabletUSE DIRECTED Allergies Medication No Known Drug Allergies Recorded By: Maria D Hensley; 01/19/2021 2:05:53 PM Review of Systems Constitutional: not feeling tired. Cardiovascular: no intermittent leg claudication and as noted in HPI. Respiratory: no cough and no shortness of breath. Gastrointestinal: no change in bowel habits and no blood in stools. Integumentary: no skin rashes. Neurological: no seizures and no frequent falls. All other systems have been reviewed and are negative for complaint. Vitals Vital Signs Recorded: [id number] 11:00AMRecorded: [id number] 10:57AM [id number], RUE92, LUE, Sitting Nonzlfbzn81, RUE58, LUE, Sitting Heart Rate68, Apical EKG done in office today Signatures Electronically signed by : Pino Dunbar MD; Jun 19 2021 11:46AM EST (Author) Normal [employer] COVID-19 Antigenon 2 COVID-19 Antigen Healthcare Worker?: N Reference Range: Negative Negative results, from patients with symptom onset beyond five days, should be treated as presumptive and confirmation with a molecular assay, if necessary, for patient management, may be performed. Negative results do not rule out COVID-19 and should not be used as the sole basis for treatment or patient management decisions, including infection control decisions. Negative results should be considered in the context of a patient's recent exposures, history and the presence of clinical signs and symptoms consistent with COVID-19. The Becky SARS Antigen HERBIE does not differentiate between SARS-CoV and SARS-CoV-2. This test was developed and its performance characteristic determined by [facility] and validated at [facility]. This test has not been FDA cleared or approved. This test has been authorized by FDA under an Emergency Use Authorization (EUA). This test has been validated in accordance with the FDA's Guidance Document (Policy for Diagnostics Testing in Laboratories Certified to Perform High Complexity Testing under CLIA prior to Emergency Use Authorization for Coronavirus Disease-2019 during the Public Health Emergency) issued on May 10, 2019. This test is only authorized for the duration of time the declaration that circumstances exist justifying the authorization of the emergency use of in vitro diagnostic tests for detection of SARS-CoV-2 virus and/or diagnosis of COVID-19 infection under section 564(b)(1) of the Act, 21 U.S.C. 360bbb-3(b)(1), unless the authorization is terminated or revoked sooner. SARS-CoV+SARS-CoV-2 (COVID-19) Ag [Presence] in Respiratory specimen by Rapid immunoassay Negative for SARS Antigen by HERBIE PERFORMED BY: [place] [address] PATHOLOGIST VENDING MACHINE TECHNICIAN CHELSY BHAGAT M.D. Normal [facility] Comment on above: Performed By: #### C OVID-19 BECKY, SOFIANEG #### [address] COVID-19 SOFIAOrdered By: Alicia Palafox on 06-10-2021 SARS-CoV+SARS-CoV-2 (COVID-19) Ag IA.rapid Ql (Resp) Negative Negative [facility] Comment on above: This is a duplicate Becky SARS Antigen (HERBIE) result to be used for statistical tracking purpose only. No Panel InformationOrdered By: Horace Palafox on 06-10-2021 SARS Antigen (LFIA) [facility] Becky Ag Negativeon 06-11-19 22 Becky Ag Negative Negative Normal Negative [facility] Comment on above: Result Comment: This is a duplicate Becky SARS Antigen (HERBIE) result to be used for statistical tracking purpose only. PERFORMED BY: [place] [phone] PATHOLOGIST VENDING MACHINE TECHNICIAN CHELSY BHAGAT M.D. Performed By: #### C OVID-19 BECKY, SOFIANEG #### [facility] [address] ABO and Rh group post transf usion reaction Nom (Bld)Ordered By: Cesilia Rosales on 06-05-2021 Microscopic observation Gram stain Nom (Unsp spec) [facility] Aerobic Cultureon 06-05-2021 Aerobic Culture ORGANISM: Citrobacte r freundii (O:CITFRE) Quantity of Growth Light Growth ORGANISM: Pseudomonas aeruginosa (O:PSEAER) Quantity of Growth Light Growth ORGANISM: Bacteroides thetaiotaomicron (O:BACTHE) Comments Sent to [facility] for Testing Quantity of Growth Moderate Growth Minimum inhibitory concentration Ampicillin Sulbact 16 Intermediate Metronidazole 0.25 Susceptible Ertapenem 4 Susceptible Bacteroides spp. are intrinsically resistant to ampicillin, penicillin, and aminoglycosides. Testing performed at [facility] Gram Stain Result 1+ Gram Negative Cocci No White Blood Cells Seen Aerobic MILTON Charge (NUC86) SUSCEPTIBILITY ORGANISM: O:CITFRE ANTIBIOTIC INTERPRETATION [place] Amikacin S <16 Ampicillin R >16 Ampicillin/Sulbactam R >16/8 Aztreonam I 8 Cefazolin R >16 Cefepime S <2 Ceftazidime R >16 Ceftazidime/Avibactam S <8 Ceftriaxone R 32 Ciprofloxacin S <1 Ertapenem S <0.5 Gentamicin S <4 Levofloxacin S <2 Meropenem S <1 Piperacillin/Tazobactam IB <16 Tetracycline S <4 Tigecycline S <2 Tobramycin S <4 Trimethoprim/Sulfamethoxaz ole S <2/38 Aerobic MILTON Charge (NUC86) SUSCEPTIBILITY ORGANISM: O:PSEAER ANTIBIOTIC INTERPRETATION [place] Amikacin S <16 Aztreonam IB 8 Cefepime S <2 Ceftazidime IB 4 Ceftazidime/Avibactam S <8 Ciprofloxacin S <1 Gentamicin S <4 Levofloxacin S <2 Meropenem S <1 Piperacillin/Tazobactam IB <16 Tobramycin S <4 S = SUSCEPTIBLE I = INTERMEDIATE R = RESISTANT BLANK = DATA NOT AVAILABLE, OR DRUG NOT ADVISABLE OR TESTED R* = RESISTANCE DUE TO EXTENDED SPECTRUM BETA-LACTAMASES ESBL = EXTENDED SPECTRUM BETA-LACTAMASE TFG = THYMIDINE-DEPENDENT STRAIN BERNICE = BETA-LACTAMASE POSITIVE IB = INDUCIBLE BETA-LACTAMASE. APPEARS IN PLACE OF 'S' WITH SPECIES KNOWN TO POSSESS INDUCIBLE BETA-LACTAMASES. POTENTIALLY THEY MAY BECOME RESISTANT TO ALL B-LACTAM DRUGS. PERFORMED BY: [place] [address] PATHOLOGIST VENDING MACHINE TECHNICIAN CHELSY BHAGAT M.D. [facility] Comment on above: Performed By: #### A ERC #### [place] [address] [place] Bacteria identified Aer cx N om (Unsp spec)Ordered By: Cesilia Rosales on 06-05-2021 Aerobic Culture Citrobacter freundii [facility] Aerobic Culture Pseudomonas aeruginosa [facility] Bacteria identified Anaer cx Nom (Unsp spec)Ordered By: Cesilia Rosales on 06-05-2021 Anaerobic Culture Bacteroides thetaiotaomicron [facility] Basic Metabolic Panelon 04- Calcium [Mass/Vol] 8.3 mg/dL Normal 8.2-10.2 [facility] Comment on above: Performed By: #### B ILID, MG, CMP #### [facility] [address] [place] [address] [place] Chloride [Moles/Vol] 101 mmol/L Normal 95-114 [facility] Comment on above: Performed By: #### B ILID, MG, CMP #### [facility] [address] [place] [address] [place] CO2 [Moles/Vol] 27.5 mmol/L Normal 22.0-30.0 [facility] Comment on above: Performed By: #### B ILID, MG, CMP #### [address] Creatinine [Mass/Vol] 0.69 mg/dL Normal 0.64-1.27 [facility] Comment on above: Performed By: #### B ILID, MG, CMP #### [address] Creatinine Clr Calc Pharmacy 82.34 [facility] Comment on above: Result Comment: PERF ORMED BY: [place] [address] PATHOLOGIST VENDING MACHINE TECHNICIAN CHELSY BHAGAT M.D. Performed By: #### B ILID, MG, CMP #### [address] Estimated GFR ( Altagracia > 60 [facility] Comment on above: Result Comment: GFR estimated reference range: According to KDOQI guidelines, <60 ml/min/1.73m2 is sufficient to diagnose a patient with chronic kidney disease. Performed By: #### B ILID, MG, CMP #### [address] Estimated GFR (Non- Am > 60 [facility] Comment on above: Performed By: #### B ILID, MG, CMP #### [address] Glucose [Mass/Vol] 102 mg/dL High 70-100 [facility] Comment on above: Result Comment: [place] Glucose Reference Range is dependent on time and content of last meal. Glucose of more than 200 mg/dL in a nonstressed, ambulatory subject supports the diagnosis of Diabetes Mellitus. ADA recommended reference range Performed By: #### B ILID, MG, CMP #### [address] Potassium [Moles/Vol] 4.1 mmol/L Normal 3.5-5.1 [facility] Comment on above: Performed By: #### B ILID, MG, CMP #### [address] Sodium [Moles/Vol] 137 mmol/L Normal 136-146 [facility] Comment on above: Performed By: #### B ILID, MG, CMP #### [facility] [address] Urea nitrogen [Mass/Vol] 9 mg/dL Normal 9-23 [facility] Comment on above: Performed By: #### B ILID, MG, CMP #### [facility] [address] Basophils Auto (Bld) [#/Vol] Ordered By: Cesilia Rosales on 06-05-2021 Basophils (Bld) [#/Vol] 0.1 10*3/uL 0.0-0.2 [facility] Basophils/100 WBC Auto (Bld) Ordered By: Cesilia Rosales on 06-05-2021 Basophils/100 WBC (Bld) 0.9 % [facility] Blood hemoglobin measurement (mass/volume)Ordered By: Cesilia Rosales on 06-05-2021 Hemoglobin (Bld) [Mass/Vol] 10.3 g/dL 13.0-17.0 [facility] Blood leukocytes automated c ount (number/volume)Ordered By: Cesilia Rosales on 06-05-2021 WBC (Bld) [#/Vol] 8.9 10*3/uL 4.5-11.[address] [facility] [address] biopsyOrdered By: Jackelyn Rajan on 06-05-2021 Transferrin [Mass/Vol] 184 mg/dL 180-380 [facility] Complete Blood Count Auto Di ffon 06-05-2021 Basophils (Bld) [#/Vol] 0.1 10*3/uL Normal 0.0-0.2 [facility] Comment on above: Result Comment: PERF ORMED BY: [facility] [address] [place] [address] PATHOLOGIST VENDING MACHINE TECHNICIAN CHELSY BHAGAT M.D. Performed By: #### A ERC #### [facility] [address] Basophils/100 WBC (Bld) 0.9 % Normal . [facility] Comment on above: Performed By: #### A ERC #### [address] Eosinophils (Bld) [#/Vol] 0.6 10*3/uL High 0.0-0.45 [facility] Comment on above: Performed By: #### A ERC #### [address] Eosinophils/100 WBC (Bld) 6.4 % Normal . [facility] Comment on above: Performed By: #### A ERC #### [address] Erythrocyte distribution width (RBC) [Ratio] 14.6 % Normal 12.0-14.8 [facility] Comment on above: Performed By: #### A ERC #### [address] Hematocrit (Bld) [Volume fraction] 31.6 % Low 38.8-50.0 [facility] Comment on above: Performed By: #### A ERC #### [address] Hemoglobin (Bld) [Mass/Vol] 10.3 g/dL Low 13.0-17.0 [facility] Comment on above: Performed By: #### A ERC #### [address] Lymphocytes (Bld) [#/Vol] 2.2 10*3/uL Normal 1.00-4.8 [facility] Comment on above: Performed By: #### A ERC #### [address] Lymphocytes/100 WBC (Bld) 25.2 % Normal . [facility] Comment on above: Performed By: #### A ERC #### [address] MCH (RBC) [Entitic mass] 27.7 pg Normal 27.5-35.2 [facility] Comment on above: Performed By: #### A ERC #### [address] MCV (RBC) [Entitic vol] 85.3 fL Normal 83.5-101 [facility] Comment on above: Performed By: #### A ERC #### [address] Mean Corpuscular HGB Conc 32.5 g/dL Normal 32.5-35.6 [facility] Comment on above: Performed By: #### A ERC #### [address] Monocytes (Bld) [#/Vol] 1.3 10*3/uL High 0.0-0.8 [facility] Comment on above: Performed By: #### A ERC #### [address] Monocytes/100 WBC (Bld) 15.2 % Normal . [facility] Comment on above: Performed By: #### A ERC #### [address] Neutrophils (Bld) [#/Vol] 4.7 10*3/uL Normal 1.8-7.7 [facility] Comment on above: Performed By: #### A ERC #### [address] Neutrophils/100 WBC (Bld) 52.3 % Normal . [facility] Comment on above: Performed By: #### A ERC #### [address] Nucleated RBC/100 WBC (Bld) [Ratio] 0.0 % Normal 0-0.5 [facility] Comment on above: Performed By: #### A ERC #### [address] Platelet mean volume (Bld) [Entitic vol] 6.2 fL Low 6.6-10.1 [facility] Comment on above: Performed By: #### A ERC #### [address] Platelets (Bld) [#/Vol] 665 10*3/uL High 150-450 [facility] Comment on above: Performed By: #### A ERC #### [facility] [address] [place] [address] [place] RBC (Bld) [#/Vol] 3.71 10*6/uL Low 3.90-5.60 [facility] Comment on above: Performed By: #### A ERC #### [facility] [address] [place] [address] [place] WBC (Bld) [#/Vol] 8.9 10*3/uL Normal 4.5-11.0 [facility] Comment on above: Performed By: #### A ERC #### [facility] [address] Creatinine and Glomerular fi ltration rate.predicted panel (S/P/Bld)Ordered By: Cesilia Rosales on 06-05-2021 Creatinine [Mass/Vol] 0.69 mg/dL 0.64-1.27 [facility] Eosinophils Auto (Bld) [#/Vo l]Ordered By: Cesilia Rosales on 06-05-2021 Eosinophils (Bld) [#/Vol] 0.6 10*3/uL 0.0-0.45 [facility] Eosinophils/100 WBC Auto (Bl d)Ordered By: Cesilia Rosales on 06-05-2021 Eosinophils/100 WBC (Bld) 6.4 % [facility] Erythrocyte distribution wid th Auto (RBC) [Ratio]Ordered By: Cesilia Rosales on 06-05-2021 Erythrocyte distribution width (RBC) [Ratio] 14.6 % 12.0-14.8 [facility] Estimated glomerular filtrat ion rate (GFR) non- AmericanOrdered By: Cesilia Rosales on 06-05-2021 GFR/1.73 sq M.predicted among non-blacks MDRD (S/P/Bld) [Vol rate/Area] > 60 mL/Min [facility] Hematocrit Auto (Bld) [Volum e fraction]Ordered By: Cesilia Rosales on 06-05-2021 Hematocrit (Bld) [Volume fraction] 31.6 % 38.8-50.0 [facility] Iron [Mass/volume] in Serum or PlasmaOrdered By: Jackelyn Ambriz on 06-05-2021 Iron [Mass/Vol] 23 ug/dL 40-160 [facility] Iron and TIBC Profileon 05-09 % Iron Saturation 8.0 % Low 20-50 [facility] Comment on above: Order Comment: Comme nt ok to use previously drawn specimen Performed By: #### A ERC #### [facility] [address] Iron [Mass/Vol] 23 ug/dL Low 40-160 [facility] Comment on above: Order Comment: Comme nt ok to use previously drawn specimen Performed By: #### A ERC #### [facility] [address] [place] [address] Total Iron Binding Capacity 258 ug/dL Normal 255-450 [facility] Comment on above: Order Comment: Comme nt ok to use previously drawn specimen Performed By: #### A ERC #### [facility] [address] [place] [address] Transferrin [Mass/Vol] 184 mg/dL Normal 180-380 [facility] Comment on above: Order Comment: Comme nt ok to use previously drawn specimen Performed By: #### A ERC #### [facility] [address] [place] [address] Iron binding capacity [Mass/ volume] in Serum or PlasmaOrdered By: Jackelyn Ambriz on 06-05-2021 Iron binding capacity [Mass/Vol] 258 ug/dL 255-450 [facility] Iron saturation [Mass Fracti on] in Serum or PlasmaOrdered By: Jackelyn Ambriz on 06-05-2021 Iron saturation [Mass fraction] 8.0 % 20-50 [facility] Laboratory - Hematology and Cell countsOrdered By: Cesilia Rosales on 06-05-2021 Nucleated RBC/100 WBC (Bld) [Ratio] 0.0 % 0-0.5 [facility] Lymphocytes Auto (Bld) [#/Vo l]Ordered By: Cesilia Rosales on 06-05-2021 Lymphocytes (Bld) [#/Vol] 2.2 10*3/uL 1.00-4.8 [facility] Lymphocytes/100 WBC Auto (Bl d)Ordered By: Cesilia Rosales on 06-05-2021 Lymphocytes/100 WBC (Bld) 25.2 % [facility] MCH Auto (RBC) [Entitic mass ]Ordered By: Cesilia Rosales on 06-05-2021 MCH (RBC) [Entitic mass] 27.7 pg 27.5-35.2 [facility] MCHC Auto (RBC) [Mass/Vol]Or dered By: Cesilia Rosales on 06-05-2021 MCHC (RBC) [Mass/Vol] 32.5 g/dL 32.5-35.6 [facility] MCV Auto (RBC) [Entitic vol] Ordered By: Cesilia Rosales on 06-05-2021 MCV (RBC) [Entitic vol] 85.3 fL 83.5-101 [facility] Monocytes Auto (Bld) [#/Vol] Ordered By: Cesilia Rosales on 06-05-2021 Monocytes (Bld) [#/Vol] 1.3 10*3/uL 0.0-0.8 [facility] Monocytes/100 WBC Auto (Bld) Ordered By: Cesilia Rosales on 06-05-2021 Monocytes/100 WBC (Bld) 15.2 % [facility] Neutrophils Auto (Bld) [#/Vo l]Ordered By: Cesilia Rosales on 06-05-2021 Neutrophils (Bld) [#/Vol] 4.7 10*3/uL 1.8-7.7 [facility] Neutrophils/100 WBC Auto (Bl d)Ordered By: Cesilia Rosales on 06-05-2021 Neutrophils/100 WBC (Bld) 52.3 % [facility] No Panel InformationOrdered By: Cesilia Rosales on 06-05-2021 Estimated GFR () > 60 mL/Min [facility] Comment on above: GFR estimated refere nce range: According to KDOQI guidelines, <60 ml/min/1.73m2 is sufficient to diagnose a patient with chronic kidney disease. Pharmacy Creatinine Clearance (Chem 82.34 [facility] Platelet mean volume Auto (B ld) [Entitic vol]Ordered By: Cesilia Rosales on 06-05-2021 Platelet mean volume (Bld) [Entitic vol] 6.2 fL 6.6-10.1 [facility] Platelets Auto (Bld) [#/Vol] Ordered By: Cesilia Rosales on 06-05-2021 Platelets (Bld) [#/Vol] 665 10*3/uL 150-450 [facility] Prealbuminon 06-05-2021 Prealbumin [Mass/Vol] 10.0 mg/dL Low 18.0-38.0 [facility] Comment on above: Order Comment: Comme nt ok to use previously drawn specimen Result Comment: PERF ORMED BY: [place] [address] PATHOLOGIST VENDING MACHINE TECHNICIAN CHELSY BHAGAT M.D. Performed By: #### A ERC #### [facility] [address] [place] [address] RBC Auto (Bld) [#/Vol]Ordere d By: Cesilia Rosales on 06-05-2021 RBC (Bld) [#/Vol] 3.71 10*6/uL 3.90-5.60 [facility] Serum or plasma calcium kirstie urement (mass/volume)Ordered By: Cesilia Rosales on 06-05-2021 Calcium [Mass/Vol] 8.3 mg/dL 8.2-10.2 [facility] Serum or plasma chloride codie surement (moles/volume)Ordered By: Cesilia Rosales on 06-05-2021 Chloride [Moles/Vol] 101 mmol/L 95-114 [facility] Serum or plasma glucose kirstie urement (mass/volume)Ordered By: Cesilia Rosales on 06-05-2021 Glucose [Mass/Vol] 102 mg/dL 70-100 [facility] Comment on above: ADA recommended refe rence range Random Glucose Reference Range is dependent on time and content of last meal. Glucose of more than 200 mg/dL in a nonstressed, ambulatory subject supports the diagnosis of Diabetes Mellitus. Serum or plasma potassium me asurement (moles/volume)Ordered By: Cesilia Rosales on 06-05-2021 Potassium [Moles/Vol] 4.1 mmol/L 3.5-5.1 [facility] Serum or plasma prealbumin m easurement (mass/volume)Ordered By: Jackelyn Ambriz on 06-05-2021 Prealbumin [Mass/Vol] 10.0 mg/dL 18.0-38.0 [facility] Serum or plasma sodium measu rement (moles/volume)Ordered By: Cesilia Rosales on 06-05-2021 Sodium [Moles/Vol] 137 mmol/L 136-146 [facility] Serum or plasma total carbon dioxide measurement (moles/volume)Ordered By: Cesilia Rosales on 06-05-2021 CO2 [Moles/Vol] 27.5 mmol/L 22.0-30.0 [facility] Serum or plasma urea nitroge n measurement (mass/volume)Ordered By: Cesilia Rosales on 06-05-2021 Urea nitrogen [Mass/Vol] 9 mg/dL 9-23 [facility] Albumin [Mass/volume] in Ser um or PlasmaOrdered By: Horace Palafox on 05-28-2021 Albumin [Mass/Vol] 1.8 g/dL 3.2-5.5 [facility] Globulin Calc (S) [Mass/Vol] Ordered By: Horace Palafox on 05-28-2021 Globulin (S) [Mass/Vol] 3.1 g/dL [facility] Protein [Mass/volume] in Ser um or PlasmaOrdered By: Horace Palafox on 05-28-2021 Protein [Mass/Vol] 4.9 g/dL 6.1-7.9 [facility] Serum or plasma alanine miranda otransferase measurement without P-5'-P (enzymatic activiOrdered By: Horace Palafox on 05-28-2021 ALT No additional P-5'-P [Catalytic activity/Vol] 16 U/L 10-60 [facility] Serum or plasma albumin/glob ulin mass ratioOrdered By: Horace Palafox on 05-28-2021 Albumin/Globulin [Mass ratio] 0.6 {ratio} [facility] Serum or plasma alkaline pawel sphatase measurement (enzymatic activity/volume)Ordered By: Horace Palafox on 05-28-2021 ALP [Catalytic activity/Vol] 56 U/L 32-92 [facility] Serum or plasma aspartate am inotransferase measurement (enzymatic activity/volume)Ordered By: Horace Palafox on 05-28-2021 AST [Catalytic activity/Vol] 18 U/L 10-42 [facility] Serum or plasma total biliru bin measurement (mass/volume)Ordered By: Horace Palafox on 05-28-2021 Bilirubin [Mass/Vol] 0.4 mg/dL 0.3-1.2 [facility] COVID-19 SOFIAOrdered By: Jj Cash on 05-27-2021 SARS-CoV+SARS-CoV-2 (COVID-19) Ag IA.rapid Ql (Resp) Negative Negative [facility] Comment on above: This is a duplicate Becky SARS Antigen (HERBIE) result to be used for statistical tracking purpose only. No Panel InformationOrdered By: Soham Cash on 05-27-2021 SARS Antigen (LFIA) [facility] Automated erythrocytes count in urine sediment (number/area)Ordered By: Antonieta Combs on 05-24-2021 RBC Auto (Urine sed) [#/Area] 3-4 [HPF] [facility] Automated leukocytes count i n urine sediment (number/area)Ordered By: Antonieta Combs on 05-24-2021 WBC Auto (Urine sed) [#/Area] 0-1 [HPF] [facility] Bacterial blood cultureOrder ed By: Antonieta Combs on 05-24-2021 Bacteria identified Cx Nom (Bld) [facility] Basophils Auto (Bld) [#/Vol] Ordered By: Soham Cash on 05-24-2021 Basophils (Bld) [#/Vol] 0.0 10*3/uL 0.0-0.2 [facility] Basophils/100 WBC Auto (Bld) Ordered By: Soham Cash on 05-24-2021 Basophils/100 WBC (Bld) 0.4 % [facility] Bilirubin Test strip Ql (U)O rdered By: Antonieta Combs on 05-24-2021 Bilirubin Ql (U) Negative Negative [facility] Blood hemoglobin measurement (mass/volume)Ordered By: Soham Cash on 05-24-2021 Hemoglobin (Bld) [Mass/Vol] 12.6 g/dL 13.0-17.0 [facility] Blood leukocytes automated c ount (number/volume)Ordered By: Soham Cash on 05-24-2021 WBC (Bld) [#/Vol] 11.0 10*3/uL 4.5-11.0 [facility] Color Auto (U)Ordered By: Rogerio Combs on 05-24-2021 Color (U) Yellow Yellow [facility] Creatinine and Glomerular fi ltration rate.predicted panel (S/P/Bld)Ordered By: Soham Cash on 05-24-2021 Creatinine [Mass/Vol] 0.86 mg/dL 0.64-1.27 [facility] Eosinophils Auto (Bld) [#/Vo l]Ordered By: Soham Cash on 05-24-2021 Eosinophils (Bld) [#/Vol] 0.3 10*3/uL 0.0-0.45 [facility] Eosinophils/100 WBC Auto (Bl d)Ordered By: Soham Cash on 05-24-2021 Eosinophils/100 WBC (Bld) 2.6 % [facility] Erythrocyte distribution wid th Auto (RBC) [Ratio]Ordered By: Soham Cash on 05-24-2021 Erythrocyte distribution width (RBC) [Ratio] 15.0 % 12.0-14.8 [facility] Estimated glomerular filtrat ion rate (GFR) non- AmericanOrdered By: Soham Cash on 05-24-2021 GFR/1.73 sq M.predicted among non-blacks MDRD (S/P/Bld) [Vol rate/Area] > 60 mL/Min [facility] Hematocrit Auto (Bld) [Volum e fraction]Ordered By: Soham Cash on 05-24-2021 Hematocrit (Bld) [Volume fraction] 38.4 % 38.8-50.0 [facility] Ketones Auto test strip (U) [Mass/Vol]Ordered By: Antonieta Combs on 05-24-2021 Ketones (U) [Mass/Vol] Negative [facility] - Hematology and Cell countsOrdered By: Soham Cash on 05-24-2021 Nucleated RBC/100 WBC (Bld) [Ratio] 0.0 % 0-0.5 [facility] - UrinalysisOrder ed By: Antonieta Combs on 05-24-2021 Hyaline casts LM Ql (Urine sed) None seen [LPF] [facility] Lymphocytes Auto (Bld) [#/Vo l]Ordered By: Soham Cash on 05-24-2021 Lymphocytes (Bld) [#/Vol] 1.6 10*3/uL 1.00-4.8 [facility] Lymphocytes/100 WBC Auto (Bl d)Ordered By: Soham Cash on 05-24-2021 Lymphocytes/100 WBC (Bld) 14.1 % [facility] MCH Auto (RBC) [Entitic mass ]Ordered By: Soham Cash on 05-24-2021 MCH (RBC) [Entitic mass] 28.4 pg 27.5-35.2 [facility] MCHC Auto (RBC) [Mass/Vol]Or dered By: Soham Cash on 05-24-2021 MCHC (RBC) [Mass/Vol] 32.9 g/dL 32.5-35.6 [facility] MCV Auto (RBC) [Entitic vol] Ordered By: Soham Cash on 05-24-2021 MCV (RBC) [Entitic vol] 86.3 fL 83.5-101 [facility] Monocytes Auto (Bld) [#/Vol] Ordered By: Soham Cash on 05-24-2021 Monocytes (Bld) [#/Vol] 1.6 10*3/uL 0.0-0.8 [facility] Monocytes/100 WBC Auto (Bld) Ordered By: Soham Cash on 05-24-2021 Monocytes/100 WBC (Bld) 14.9 % [facility] Neutrophils Auto (Bld) [#/Vo l]Ordered By: Soham Cash on 05-24-2021 Neutrophils (Bld) [#/Vol] 7.5 10*3/uL 1.8-7.7 [facility] Neutrophils/100 WBC Auto (Bl d)Ordered By: Soham Cash on 05-24-2021 Neutrophils/100 WBC (Bld) 68.0 % [facility] Nitrite Test strip Ql (U)Ord ered By: Antonieta Combs on 05-24-2021 Nitrite Ql (U) Negative Negative [facility] No Panel InformationOrdered By: Soham Cash on 05-24-2021 Estimated GFR () > 60 mL/Min [facility] Comment on above: GFR estimated refere nce range: According to KDOQI guidelines, <60 ml/min/1.73m2 is sufficient to diagnose a patient with chronic kidney disease. Pharmacy Creatinine Clearance (Chem 118.55 [facility] Platelet mean volume Auto (B ld) [Entitic vol]Ordered By: Soham Cash on 05-24-2021 Platelet mean volume (Bld) [Entitic vol] 7.8 fL 6.6-10.1 [facility] Platelets Auto (Bld) [#/Vol] Ordered By: Soham Cash on 05-24-2021 Platelets (Bld) [#/Vol] 227 10*3/uL 150-450 [facility] Protein Auto test strip (U) [Mass/Vol]Ordered By: Antonieta Combs on 05-24-2021 Protein (U) [Mass/Vol] Trace mg/dL Negative [facility] RBC Auto (Bld) [#/Vol]Ordere d By: Soham Cash on 05-24-2021 RBC (Bld) [#/Vol] 4.45 10*6/uL 3.90-5.60 [facility] Serum or plasma calcium kirstie urement (mass/volume)Ordered By: Soham Cash on 05-24-2021 Calcium [Mass/Vol] 8.4 mg/dL 8.2-10.2 [facility] Serum or plasma chloride codie surement (moles/volume)Ordered By: Soham Cash on 05-24-2021 Chloride [Moles/Vol] 102 mmol/L 95-114 [facility] Serum or plasma glucose kirstie urement (mass/volume)Ordered By: Soham Cash on 05-24-2021 Glucose [Mass/Vol] 99 mg/dL 70-100 [facility] Comment on above: ADA recommended refe rence rangeRandom Glucose Reference Range is dependent on time and content of last meal. Glucose of more than 200 mg/dL in a nonstressed, ambulatory subject supports the diagnosis of Diabetes Mellitus. ADA recommended refe rence range Random Glucose Reference Range is dependent on time and content of last meal. Glucose of more than 200 mg/dL in a nonstressed, ambulatory subject supports the diagnosis of Diabetes Mellitus. Serum or plasma potassium me asurement (moles/volume)Ordered By: Soham Cash on 05-24-2021 Potassium [Moles/Vol] 4.3 mmol/L 3.5-5.1 [facility] Serum or plasma sodium measu rement (moles/volume)Ordered By: Soham Cash on 05-24-2021 Sodium [Moles/Vol] 136 mmol/L 136-146 [facility] Serum or plasma total carbon dioxide measurement (moles/volume)Ordered By: Soham Cash on 05-24-2021 CO2 [Moles/Vol] 26.4 mmol/L 22.0-30.0 [facility] Serum or plasma urea nitroge n measurement (mass/volume)Ordered By: Soham Cash on 05-24-2021 Urea nitrogen [Mass/Vol] 9 mg/dL 9-23 [facility] Specific gravity Auto test s trip (U) [Rel density]Ordered By: Antonieta Combs on 05-24-2021 Specific gravity (U) [Rel density] 1.007 1.001-1.03 0 [facility] Squamous epithelial cells de tection in urine sediment by light microscopyOrdered By: Antonieta Combs on 05-24-2021 Epithelial cells.squamous LM Ql (Urine sed) None seen [HPF] [facility] Urine bacteria detection by automated methodOrdered By: Antonieta Combs on 05-24-2021 Bacteria Auto Ql (U) None seen None Seen [facility] Urine clarity by refractomet ry automatedOrdered By: Antonieta Combs on 05-24-2021 Clarity Refractometry automated (U) Clear Clear [facility] Urine glucose measurement by automated test strip (mass/volume)Ordered By: Antonieta Combs on 05-24-2021 Glucose Auto test strip (U) [Mass/Vol] Normal mg/dL Normal [facility] Urine hemoglobin detection b y automated test stripOrdered By: Antonietanegro Combs on 05-24-2021 Hemoglobin Auto test strip Ql (U) 1+ Negative [facility] Urine leukocyte esterase det ection by automated test stripOrdered By: Antonietanegro Combs on 05-24-2021 Leukocyte esterase Auto test strip Ql (U) 1+ Negative [facility] Urobilinogen Auto test strip (U) [Mass/Vol]Ordered By: Antonieta Combs on 05-24-2021 Urobilinogen (U) [Mass/Vol] Normal mg/dL Normal [facility] pH Auto test strip (U)Ordere d By: Antonieta Combs on 05-24-2021 pH (U) 6.5 [pH] 5.0-9.0 [facility] TSH DL <= 0.005 mIU/L QnOrde red By: Antonieta Combs on 05-23-2021 TSH Qn 0.86 m[IU]/L 0.45-5.33 [facility] CULTURE URINEon 05-19-2021 CULTURE URINE Culture Observations : No growth Normal [facility] Comment on above: Performed By: #### B MP #### [facility] [address] [place] [address] Dr. Chapin Beck [facility]08 SARS-CoV-2 (COVID-19) RNA VITA+probe Ql (Unsp spec) Not detected Normal NOT DETECTED [facility] Comment on above: Result Comment: This test is not yet approved or cleared by the [place] FDA. When there are no FDA-approved or cleared tests available, and other criteria are met, FDA can make tests available under an emergency access mechanism called an Emergency Use Authorization (EUA). The EUA for this test is supported by the [employer]isan [employer] of Health and Human Service's (HHS's) declaration that circumstances exist to justify the emergency use of in vitro diagnostics for the detection and/or diagnosis of the virus that causes COVID-19. This EUA will remain in effect (meaning this test can be used) for the duration of the COVID-19 declaration justifying emergency of IVDs, unless it is terminated or revoked by FDA (after which the test may no longer be used). When diagnostic testing is negative, the possibility of a false negative should be considered in the context of a patient's recent exposures and the presence of clinical signs and symptoms consistent with SARS-CoV-2. Performed By: #### B MP #### [facility] [address] [place] [address] Dr. Chapin Beck UA (CLEAN/CATCH) PASSENGER AGENT/MICRO I F IND.on 05-19-2021 Bilirubin Ql (U) Negative Normal NEGATIVE [facility] Comment on above: Performed By: #### U MICRO, UACSIND #### [facility] [address] [place] [address] Dr. Chapin Beck Clarity (U) CLEAR Normal CLEAR [facility] Comment on above: Performed By: #### U MICRO, UACSIND #### [facility] [address] [place] [address] Dr. Chapin Beck Color (U) LT. YELLOW Normal YELLOW [facility] Comment on above: Performed By: #### U MICRO, UACSIND #### [facility] [address] [place] [address] Dr. Chapin Beck Glucose Ql (U) Negative Normal NEGATIVE [facility] Comment on above: Performed By: #### U MICRO, UACSIND #### [facility] [address] [place] [address] Dr. Chapin Beck Hemoglobin Ql (U) MODERATE Abnormal NEGATIVE [facility] Comment on above: Performed By: #### U MICRO, UACSIND #### [facility] [address] [place] [address] Dr. Chapin Beck Ketones Ql (U) Negative Normal NEGATIVE [facility] Comment on above: Performed By: #### U MICRO, UACSIND #### [facility] [address] [place] [address] Dr. Chapin Beck LEUKOCYTES Negative Normal NEGATIVE [facility] Comment on above: Performed By: #### U MICRO, UACSIND #### [facility] [address] [place] [address] Dr. Chapin Beck Nitrite Ql (U) Negative Normal NEGATIVE [facility] Comment on above: Performed By: #### U MICRO, UACSIND #### [facility] [address] [address] [address] Chapin Beck pH (U) 6.0 [pH] Normal 5-9 [facility] Comment on above: Performed By: #### U MICRO, UACSIND #### [facility] [address] [place] [address] Dr. Chapin Beck SPEC GRAVITY 1.010 Normal 1.005-<=1. 025 [facility] Comment on above: Performed By: #### U MICRO, UACSIND #### [facility] [address] [place] [address] Dr. Chapin Beck UA PROTEIN Negative Normal NEGATIVE/ TRACE [facility] Comment on above: Performed By: #### U MICRO, UACSIND #### [facility] [address] [place] [address] Dr. Chapin Beck UR MICRO IND INDICATED Normal [facility] Comment on above: Performed By: #### U MICRO, UACSIND #### [facility] [address] [place] [address] Dr. Chapin Beck Urobilinogen Qn (U) 0.2 {Sami'U}/dL Normal 0.2 - 1. 0 [facility] Comment on above: Performed By: #### U MICRO, UACSIND #### [facility] [address] [place] [address] Dr. Chapin Beck URINE MICROSCOPIC ONLYon BACTERIA SMALL Abnormal NONE SEEN [facility] Comment on above: Performed By: #### U MICRO, UACSIND #### [facility] [address] [place] [address] Dr. Chapin Beck Bacteria identified Cx Nom (U) INDICATED Normal [facility] Comment on above: Performed By: #### U MICRO, UACSIND #### [facility] [address] [place] [address] Dr. Chapin Beck CAST NONE SEEN Normal NONE SEEN [facility] Comment on above: Performed By: #### U MICRO, UACSIND #### [facility] [address] [address] [address] Chapin Beck Crystals LM Nom (Urine sed) NONE SEEN Normal NONE SEEN [facility] Comment on above: Performed By: #### U MICRO, UACSIND #### [facility] [address] [address] [address] Chapin Beck Epithelial cells LM Ql (Urine sed) NONE SEEN Normal NONE SEEN /RARE [facility] Comment on above: Performed By: #### U MICRO, UACSIND #### [facility] [address] [address] [address] Chapin Beck MUCOUS NONE SEEN Normal NONE SEEN [facility] Comment on above: Performed By: #### U MICRO, UACSIND #### [facility] [address] [address] [address] Chapin Beck RBC 75-100 Abnormal 0-2 [facility] Comment on above: Performed By: #### U MICRO, UACSIND #### [facility] [address] [address] [address] Chapin Beck WBC 0-2 Abnormal NONE SEEN [facility] Comment on above: Performed By: #### U MICRO, UACSIND #### [facility] [address] [address] [address] Chapin Beck Automated erythrocytes count in urine sediment (number/area)Ordered By: Soham Cash on 05-06-2021 RBC Auto (Urine sed) [#/Area] None seen [HPF] [facility] Automated leukocytes count i n urine sediment (number/area)Ordered By: Soham Cash on 05-06-2021 WBC Auto (Urine sed) [#/Area] 50-100 [HPF] [facility] Bilirubin Test strip Ql (U)O rdered By: Soham Cash on 05-06-2021 Bilirubin Ql (U) Negative Negative [facility] Color Auto (U)Ordered By: Jj Cash on 05-06-2021 Color (U) Yellow Yellow [facility] Ketones Auto test strip (U) [Mass/Vol]Ordered By: Soham Cash on 05-06-2021 Ketones (U) [Mass/Vol] Negative Negative [facility] - UrinalysisOrder ed By: Soham Cash on 05-06-2021 Hyaline casts LM Ql (Urine sed) 0-8 [LPF] [facility] Nitrite Test strip Ql (U)Ord ered By: Soham Cash on 05-06-2021 Nitrite Ql (U) Positive Negative [facility] Protein Auto test strip (U) [Mass/Vol]Ordered By: Soham Cash on 05-06-2021 Protein (U) [Mass/Vol] Negative Negative [facility] Specific gravity Auto test s trip (U) [Rel density]Ordered By: Soham Cash on 05-06-2021 Specific gravity (U) [Rel density] 1.022 1.001-1.03 0 [facility] Squamous epithelial cells de tection in urine sediment by light microscopyOrdered By: Soham Cash on 05-06-2021 Epithelial cells.squamous LM Ql (Urine sed) None seen [HPF] [facility] Urine bacteria detection by automated methodOrdered By: Soham Cash on 05-06-2021 Bacteria Auto Ql (U) 4+ None Seen [facility] Urine clarity by refractomet ry automatedOrdered By: Soham Cash on 05-06-2021 Clarity Refractometry automated (U) Cloudy Clear [facility] Urine culture routineOrdered By: Soham Cash on 05-06-2021 Bacteria identified Cx Nom (U) Klebsiella pneumoniae [facility] Urine glucose measurement by automated test strip (mass/volume)Ordered By: Soham Cash on 05-06-2021 Glucose Auto test strip (U) [Mass/Vol] Normal mg/dL Normal [facility] Urine hemoglobin detection b y automated test stripOrdered By: Soham Cash on 05-06-2021 Hemoglobin Auto test strip Ql (U) Negative Negative [facility] Urine leukocyte esterase det ection by automated test stripOrdered By: Soham Cash on 05-06-2021 Leukocyte esterase Auto test strip Ql (U) 3+ Negative [facility] Urobilinogen Auto test strip (U) [Mass/Vol]Ordered By: Soham Cash on 05-06-2021 Urobilinogen (U) [Mass/Vol] Normal mg/dL Normal [facility] pH Auto test strip (U)Ordere d By: Soham Cash on 05-06-2021 pH (U) 5.0 [pH] 5.0-9.0 [facility] Basophils Auto (Bld) [#/Vol] Ordered By: Soham Cash on 05-05-2021 Basophils (Bld) [#/Vol] 0.0 10*3/uL 0.0-0.2 [facility] Basophils/100 WBC Auto (Bld) Ordered By: Soham Cash on 05-05-2021 Basophils/100 WBC (Bld) 0.7 % [facility] Blood hemoglobin measurement (mass/volume)Ordered By: Soham Cash on 05-05-2021 Hemoglobin (Bld) [Mass/Vol] 14.1 g/dL 13.0-17.0 [facility] Blood leukocytes automated c ount (number/volume)Ordered By: Soham Cash on 05-05-2021 WBC (Bld) [#/Vol] 7.1 10*3/uL 4.5-11.0 [facility] Creatinine and Glomerular fi ltration rate.predicted panel (S/P/Bld)Ordered By: Soham Cash on 05-05-2021 Creatinine [Mass/Vol] 0.75 mg/dL 0.64-1.27 [facility] Eosinophils Auto (Bld) [#/Vo l]Ordered By: Soham Cash on 05-05-2021 Eosinophils (Bld) [#/Vol] 0.4 10*3/uL 0.0-0.45 [facility] Eosinophils/100 WBC Auto (Bl d)Ordered By: Soham Cash on 05-05-2021 Eosinophils/100 WBC (Bld) 5.3 % [facility] Erythrocyte distribution wid th Auto (RBC) [Ratio]Ordered By: Soham Cash on 05-05-2021 Erythrocyte distribution width (RBC) [Ratio] 14.9 % 12.0-14.8 [facility] Estimated glomerular filtrat ion rate (GFR) non- AmericanOrdered By: Soham Cash on 05-05-2021 GFR/1.73 sq M.predicted among non-blacks MDRD (S/P/Bld) [Vol rate/Area] > 60 mL/Min [facility] Hematocrit Auto (Bld) [Volum e fraction]Ordered By: Soham Cash on 05-05-2021 Hematocrit (Bld) [Volume fraction] 44.2 % 38.8-50.0 [facility] Laboratory - Hematology and Cell countsOrdered By: Soham Cash on 05-05-2021 Nucleated RBC/100 WBC (Bld) [Ratio] 0.1 % 0-0.5 [facility] Lymphocytes Auto (Bld) [#/Vo l]Ordered By: Soham Cash on 05-05-2021 Lymphocytes (Bld) [#/Vol] 1.9 10*3/uL 1.00-4.8 [facility] Lymphocytes/100 WBC Auto (Bl d)Ordered By: Soham Cash on 05-05-2021 Lymphocytes/100 WBC (Bld) 26.9 % [facility] MCH Auto (RBC) [Entitic mass ]Ordered By: Soham Cash on 05-05-2021 MCH (RBC) [Entitic mass] 27.7 pg 27.5-35.2 [facility] MCHC Auto (RBC) [Mass/Vol]Or dered By: Soham Cash on 05-05-2021 MCHC (RBC) [Mass/Vol] 32.0 g/dL 32.5-35.6 [facility] MCV Auto (RBC) [Entitic vol] Ordered By: Soham Cash on 05-05-2021 MCV (RBC) [Entitic vol] 86.8 fL 83.5-101 [facility] Monocytes Auto (Bld) [#/Vol] Ordered By: Soham Cash on 05-05-2021 Monocytes (Bld) [#/Vol] 0.9 10*3/uL 0.0-0.8 [facility] Monocytes/100 WBC Auto (Bld) Ordered By: Soham Cash on 05-05-2021 Monocytes/100 WBC (Bld) 12.5 % [facility] Neutrophils Auto (Bld) [#/Vo l]Ordered By: Soham Cash on 05-05-2021 Neutrophils (Bld) [#/Vol] 3.9 10*3/uL 1.8-7.7 [facility] Neutrophils/100 WBC Auto (Bl d)Ordered By: Soham Cash on 05-05-2021 Neutrophils/100 WBC (Bld) 54.6 % [facility] No Panel InformationOrdered By: Soham Cash on 05-05-2021 Estimated GFR () > 60 mL/Min [facility] Comment on above: GFR estimated refere nce range: According to KDOQI guidelines, <60 ml/min/1.73m2 is sufficient to diagnose a patient with chronic kidney disease. Pharmacy Creatinine Clearance (Chem N/A [facility] Platelet mean volume Auto (B ld) [Entitic vol]Ordered By: Soham Cash on 05-05-2021 Platelet mean volume (Bld) [Entitic vol] 7.3 fL 6.6-10.1 [facility] Platelets Auto (Bld) [#/Vol] Ordered By: Soham Cash on 05-05-2021 Platelets (Bld) [#/Vol] 298 10*3/uL 150-450 [facility] RBC Auto (Bld) [#/Vol]Ordere d By: Soham Cash on 05-05-2021 RBC (Bld) [#/Vol] 5.09 10*6/uL 3.90-5.60 [facility] Serum or plasma calcium kirstie urement (mass/volume)Ordered By: Soham Cash on 05-05-2021 Calcium [Mass/Vol] 9.1 mg/dL 8.2-10.2 [facility] Serum or plasma chloride codie surement (moles/volume)Ordered By: Soham Cash on 05-05-2021 Chloride [Moles/Vol] 101 mmol/L 95-114 [facility] Serum or plasma glucose kirstie urement (mass/volume)Ordered By: Soham Cash on 05-05-2021 Glucose [Mass/Vol] 106 mg/dL 70-100 [facility] Comment on above: ADA recommended refe rence rangeRandom Glucose Reference Range is dependent on time and content of last meal. Glucose of more than 200 mg/dL in a nonstressed, ambulatory subject supports the diagnosis of Diabetes Mellitus. ADA recommended refe rence range Random Glucose Reference Range is dependent on time and content of last meal. Glucose of more than 200 mg/dL in a nonstressed, ambulatory subject supports the diagnosis of Diabetes Mellitus. Serum or plasma potassium me asurement (moles/volume)Ordered By: Soham Cash on 05-05-2021 Potassium [Moles/Vol] 4.6 mmol/L 3.5-5.1 [facility] Serum or plasma sodium measu rement (moles/volume)Ordered By: Soham Cash on 05-05-2021 Sodium [Moles/Vol] 136 mmol/L 136-146 [facility] Serum or plasma total carbon dioxide measurement (moles/volume)Ordered By: Soham Cash on 05-05-2021 CO2 [Moles/Vol] 25.3 mmol/L 22.0-30.0 [facility] Serum or plasma urea nitroge n measurement (mass/volume)Ordered By: Soham Cash on 05-05-2021 Urea nitrogen [Mass/Vol] 13 mg/dL 9-23 [facility] Office Visit (Cardiology)on 02-18-2021 Follow-up visit Diagnoses/Problems Assessed CAD (coronary artery disease) (414.00) (I25.10) Hyperlipidemia (272.4) (E78.5) Status post insertion of drug eluting coronary artery stent (V45.82) (Z95.5) Former smoker (V15.82) (Z87.891) Quit smokiing 50-60 years-smoked a pipe Orders SocHx: Former smoker Tobacco Use Screening; Status:Complete; Done: 18Feb2021 Follow up in 9[ ] months Patient Instructions By signing my name below, Dali Denis Lpn,Edieibe, attest that this documentation has been prepared under the direction and in the presence of Dr. Pino Dunbar MD. All medical record entries made by the Scribe were at my direction and personally dictated by me. I have reviewed the chart and agree that the record accurately reflects my personal performance of the history, physical exam, discussion and plan. Please bring all medicines, vitamins, and herbal supplements with you when you come to the office. Prescriptions will not be filled unless you are compliant with your follow up appointments or have a follow up appointment scheduled as per instruction of your physician. Refills should be requested at the time of your visit. Chief Complaint ANGELLA PRADHAN is being seen for a 6 month follow-up of. History of Present Illness Patient is here for follow-up continue management for history of multivessel coronary artery disease prior PCI to the LAD and diagonal with known occlusion of his RCA and distal circumflex. He also underwent PCI to the RCA. Since last time I saw him his only complaint is severe arthritis. He denies complaint chest pain, palpitation, lightheadedness, dizziness or syncope. He remains very sedentary due to his arthritis. Assessment 1. Multivessel coronary artery disease status post complex PCI to the LAD diagonal and a chronically occluded RCA successfully. He does have occlusion of the small distal circumflex left for medical therapy 2. Preserved LV systolic function by echo and cath 3. Obesity 4. Hyperlipidemia 5. Severe arthritic symptoms hip and knee Plan 1. I reviewed with the patient his recent hospitalization record, lab work and the result of his heart cath and PCI 2. The natural history of ischemic heart disease discussed 3. The importance of risk factor modification was discussed 4. Patient asked me when can he proceed with hip surgery and I told him sometimes and early May would be safe to proceed 5. We will repeat his lab work in 9 months 6. Discussed risk factor modification Current Meds Medication NameInstruction Aspirin EC 81 MG Oral Tablet Delayed ReleaseTAKE 1 TABLET DAILY. Brilinta 90 MG Oral TabletTAKE 1 TABLET TWICE DAILY. Carvedilol 3.125 MG Oral TabletTAKE 1 TABLET TWICE DAILY WITH MEALS. Finasteride 5 MG Oral TabletTAKE 1 TABLET DAILY. Gabapentin 300 MG TABSTAKE 1 TABLET TWICE DAILY. Glucosamine Chond Cmp Advanced TABSTAKE 1 TABLET DAILY DIRECTED. Keppra 500 MG Oral TabletTAKE 1 TABLET TWICE DAILY. Lipitor 40 MG Oral TabletTAKE 1 TABLET AT BEDTIME. Mirtazapine 30 MG Oral TabletTAKE 1 TABLET AT BEDTIME. Multi Vitamin Oral TabletTAKE 1 TABLET DAILY. Nitroglycerin 0.4 MG Sublingual Tablet SublingualPLACE 1 TABLET UNDER THE TONGUE EVERY 5 MINUTES FOR UP TO 3 DOSES NEEDED FOR CHEST PAIN.CALL 911 IF PAIN PERSISTS. Heron 3 CAPSTAKE DIRECTED. Omeprazole 40 MG Oral Capsule Delayed ReleaseTake one daily Oxybutynin Chloride 5 MG Oral Tablettake one daily hs Tamsulosin HCl - 0.4 MG Oral CapsuleTAKE 1 CAPSULE BY MOUTH ONCE DAILY traMADol HCl - 50 MG Oral TabletTAKE 1 TABLET 3 TIMES DAILY NEEDED. Vitamin D3 CAPSTAKE 1 CAPSULE Daily Patient did not bring medications list or bottles. Updated verbally with patient. Allergies Medication No Known Drug Allergies Recorded By: Maria D Hensley; 01/19/2021 2:05:53 PM Social History Problems Caffeine use (V49.89) (Z78.9) Occasionally coffee decaf-1 cup Former smoker (V15.82) (Z87.891) Quit smokiing 50-60 years-smoked a pipe No alcohol use No illicit drug use Review of Systems Constitutional: not feeling tired. Cardiovascular: no intermittent leg claudication and as noted in HPI. Respiratory: no cough and no shortness of breath. Gastrointestinal: no change in bowel habits and no blood in stools. Integumentary: no skin rashes. Neurological: no seizures and no frequent falls. All other systems have been reviewed and are negative for complaint. Vitals Vital Signs Recorded: 18Feb2021 11:25AM Heart Rate74, L Radial Pulse QualityRegular, L Radial [id number], LUE, Sitting [id number], LUE, Sitting Tobacco Useb) No Fall Screeninga) No falls within the last year Physical Exam Constitutional: alert and in no acute distress. Neck: neck is supple, symmetric, trachea midline, no masses and no thyromegaly . Pulmonary: no increased work of breathing or signs of respiratory distress and lungs clear to auscultation. Cardiovascular: carotid pulses 2+ bilaterally with no bru (more content not included)... Normal [employer] Tobacco Screening.on 022 Fall risk assessment a) No falls within the last year [facility] [employer] [facility] 600 DO Work Phone: Heart Rate Regular [facility] 600 DO Work Phone: Tobacco use status [facility] b) No [facility] [employer] [facility] 600 DO Work Phone: Vital Signs Date Time Vital Sign Value Performing Clinician Facility 04-19-2023 15:21-0400 Body height 167.6 cm Sabra Pratt MD Work Phone: [facility] 04-19-2023 15:21-0400 Body mass index (BMI) [Ratio] 29.05 kg/m2 Sabra Pratt MD Work Phone: [facility] 04-19-2023 15:21-0400 Body weight 81.65 kg Sabra Pratt MD Work Phone: [facility] 04-19-2023 15:21-0400 Diastolic blood pressure 64 mm[Hg] Sabra Pratt MD Work Phone: [facility] 04-19-2023 15:21-0400 Heart rate 70 /min Sabra Pratt MD Work Phone: [facility] 04-19-2023 15:21-0400 Systolic blood pressure 102 mm[Hg] Sabra Pratt MD Work Phone: [facility] 02-16-2023 11:22-0500 Diastolic blood pressure 68 mm[Hg] Pino Dunbar MD Work Phone: [facility] 02-16-2023 11:22-0500 Systolic blood pressure 113 mm[Hg] Pino Dunbar MD Work Phone: [facility] 02-16-2023 10:34-0500 Body height 165.1 cm Pino Dunbar MD Work Phone: [facility] 02-16-2023 10:34-0500 Body mass index (BMI) [Ratio] 30.29 kg/m2 Pino Dubnar MD Work Phone: [facility] 02-16-2023 10:34-0500 Body weight 82.56 kg Pino Dunbar MD Work Phone: [facility] 02-16-2023 10:34-0500 Heart rate 69 /min Pino Dunbar MD Work Phone: [facility] 06-10-2022 13:46-0400 Body height 167.64 cm Ace Abbott Work Phone: [facility] 250 DO Work Phone: 06-10-2022 13:46-0400 Diastolic blood pressure 58 mm[Hg] Ace M Hoy Work Phone: [facility] 250 DO Work Phone: 06-10-2022 13:46-0400 Heart rate 57 /min Ace M Hoy Work Phone: [facility] 250 DO Work Phone: 06-10-2022 13:46-0400 Systolic blood pressure 94 mm[Hg] Ace M Hoy Work Phone: [facility] 250 DO Work Phone: 06-07-2022 14:09-0400 Body height 167.64 cm Ace M Hoy Work Phone: [facility] 250 DO Work Phone: 06-07-2022 14:09-0400 Body mass index (BMI) [Ratio] Medical Reason Not Done Ace Nicolas Hoy Work Phone: [facility] 250 DO Work Phone: 06-07-2022 14:09-0400 Diastolic blood pressure 60 mm[Hg] Ace M Hoy Work Phone: [facility] 250 DO Work Phone: 06-07-2022 14:09-0400 Heart rate 56 /min Ace Nicolas Hoy Work Phone: [facility] 250 DO Work Phone: 06-07-2022 14:09-0400 Systolic blood pressure 98 mm[Hg] Ace M Hoy Work Phone: [facility] 250 DO Work Phone: 05-29-2022 16:00-0400 Body temperature 98.3 [degF] MD Ace Hoy Work Phone: [facility] 04-22-2023 16:00-0400 Diastolic blood pressure 79 mm[Hg] MD Ace Abbott Work Phone: [facility] 05-29-2022 16:00-0400 Heart rate 61 /min MD Ace Abbott Work Phone: [facility] 05-29-2022 16:00-0400 Respiratory rate 17 /min MD Ace Abbott Work Phone: [facility] 05-29-2022 16:00-0400 SaO2% (BldA) [Mass fraction] 96 % MD Ace Abbott Work Phone: [facility] 05-29-2022 16:00-0400 Systolic blood pressure 122 mm[Hg] MD Ace Abbott Work Phone: [facility] 05-29-2022 06:47-0400 Body weight 77.6 kg MD Ace Abbott Work Phone: [facility] 05-27-2022 14:48-0400 Body height 167.64 cm MD Ace Abbott Work Phone: [facility] 05-25-2022 10:30-0400 Diastolic blood pressure 56 mm[Hg] MD Ace Abbott Work Phone: [facility] 05-25-2022 10:30-0400 Heart rate 63 /min MD Ace Abbott Work Phone: [facility] 05-25-2022 10:30-0400 Respiratory rate 20 /min MD Ace Abbott Work Phone: [facility] 05-25-2022 10:30-0400 SaO2% (BldA) [Mass fraction] 97 % MD Ace Abbott Work Phone: [facility] 05-25-2022 10:30-0400 Systolic blood pressure 117 mm[Hg] MD Ace Abbott Work Phone: [facility] 05-25-2022 06:38-0400 Body height 167.64 cm MD Ace Abbott Work Phone: [facility] 05-25-2022 06:38-0400 Body weight 91 kg MD Ace Abbott Work Phone: [facility] 05-25-2022 06:37-0400 Body temperature 97.4 [degF] MD Ace Abbott Work Phone: [facility] 04-03-2022 11:11-0500 Body temperature 97.7 [degF] MD Ace Abbott Work Phone: [facility] 04-03-2022 11:11-0500 Diastolic blood pressure 50 mm[Hg] MD Ace Abbott Work Phone: [facility] 04-03-2022 11:11-0500 Heart rate 62 /min MD Ace Abbott Work Phone: [facility] 04-03-2022 11:11-0500 Respiratory rate 16 /min MD Ace Abbott Work Phone: [facility] 04-03-2022 11:11-0500 SaO2% (BldA) [Mass fraction] 95 % MD Ace Abbott Work Phone: [facility] 04-03-2022 11:11-0500 Systolic blood pressure 113 mm[Hg] MD Ace Abbott Work Phone: [facility] 03-30-2022 12:16-0500 Body height 165.1 cm MD Ace Abbott Work Phone: [facility] 03-28-2022 06:00-0500 Body weight 89.1 kg MD Ace Abbott Work Phone: [facility] 02-19-2022 09:24-0500 Blood Pressure Location Antoine MEAD [facility] 02-19-2022 09:24-0500 Diastolic blood pressure 68 mm[Hg] Antoine MEAD [facility] 02-19-2022 09:24-0500 Heart rate 69 /min Antoine MEAD [facility] 02-19-2022 09:24-0500 Respiratory rate 16 /min Antoine MEAD [facility] 02-19-2022 09:24-0500 Systolic blood pressure 109 mm[Hg] Antoine MEAD [facility] 12-07-2021 13:00-0400 Body height 167.64 cm MD Ace Abbott Work Phone: [facility] 12-07-2021 13:00-0400 Body temperature 98.7 [degF] MD Ace Abbott Work Phone: [facility] 12-07-2021 13:00-0400 Body weight 83.91 kg MD Ace Abbott Work Phone: [facility] 12-07-2021 13:00-0400 Diastolic blood pressure 71 mm[Hg] MD Ace Abbott Work Phone: [facility] 12-07-2021 13:00-0400 Heart rate 64 /min MD Ace Abbott Work Phone: [facility] 12-07-2021 13:00-0400 Respiratory rate 16 /min MD Ace Abbott Work Phone: [facility] 12-07-2021 13:00-0400 SaO2% (BldA) [Mass fraction] 96 % MD Ace Abbott Work Phone: [facility] 12-07-2021 13:00-0400 Systolic blood pressure 120 mm[Hg] MD Ace Abbott Work Phone: [facility] 08-24-2021 10:39-0400 Body height 167.64 cm MD Ace Abbott Work Phone: [facility] 08-24-2021 10:39-0400 Body mass index (BMI) [Ratio] 29.9 kg/m2 MD Ace Abbott Work Phone: [facility] 08-24-2021 10:39-0400 Body temperature 98.1 [degF] MD Ace Abbott Work Phone: [facility] 08-24-2021 10:39-0400 Body weight 84.36 kg MD Ace Abbott Work Phone: [facility] 08-24-2021 10:39-0400 Diastolic blood pressure 66 mm[Hg] MD Ace Abbott Work Phone: [facility] 08-24-2021 10:39-0400 Heart rate 60 /min MD Ace Abbott Work Phone: [facility] 08-24-2021 10:39-0400 Respiratory rate 16 /min MD Ace Abbott Work Phone: [facility] 08-24-2021 10:39-0400 SaO2% (BldA) [Mass fraction] 95 % MD Ace Abbott Work Phone: [facility] 08-24-2021 10:39-0400 Systolic blood pressure 107 mm[Hg] MD Ace Abbott Work Phone: [facility] 08-04-2021 12:07-0400 Body height 167.64 cm MD Ace Abbott Work Phone: [facility] 08-04-2021 12:07-0400 Body mass index (BMI) [Ratio] 29.7 kg/m2 MD Ace Abbott Work Phone: [facility] 08-04-2021 12:07-0400 Body weight 83.46 kg MD Ace Abbott Work Phone: [facility] 08-04-2021 09:56-0400 Body temperature 97.5 [degF] MD Ace Abbott Work Phone: [facility] 08-04-2021 09:56-0400 Diastolic blood pressure 68 mm[Hg] MD Ace Abbott Work Phone: [facility] 08-04-2021 09:56-0400 Heart rate 61 /min MD Ace Abbott Work Phone: [facility] 08-04-2021 09:56-0400 Respiratory rate 18 /min MD Ace Abbott Work Phone: [facility] 08-04-2021 09:56-0400 Systolic blood pressure 97 mm[Hg] MD Ace Abbott Work Phone: [facility] 06-19-2021 11:00-0400 Diastolic blood pressure 48 mm[Hg] Ace M Hoy Work Phone: [facility] 250 DO Work Phone: 06-19-2021 10:57-0400 Diastolic blood pressure 58 mm[Hg] Ace M Hoy Work Phone: [facility] 250 DO Work Phone: 06-19-2021 10:57-0400 Heart rate 68 /min Ace M Hoy Work Phone: [facility] 250 DO Work Phone: 06-19-2021 10:57-0400 Systolic blood pressure 92 mm[Hg] Ace M Hoy Work Phone: [facility] 250 DO Work Phone: 06-11-2021 10:02-0400 Body temperature 98.3 [degF] MD Ace Abbott Work Phone: [facility] 06-11-2021 10:02-0400 Diastolic blood pressure 69 mm[Hg] MD Ace Abbott Work Phone: [facility] 06-11-2021 10:02-0400 Heart rate 63 /min MD Ace Abbott Work Phone: [facility] 06-11-2021 10:02-0400 Respiratory rate 18 /min MD Ace Abbott Work Phone: [facility] 06-11-2021 10:02-0400 SaO2% (BldA) [Mass fraction] 96 % MD Ace Abbott Work Phone: [facility] 06-11-2021 10:02-0400 Systolic blood pressure 101 mm[Hg] MD Ace Abbott Work Phone: [facility] 06-11-2021 07:35-0400 Body height 167.64 cm MD Ace Abbott Work Phone: [facility] 06-11-2021 06:39-0400 Body weight 92.6 kg MD Ace Abbott Work Phone: [facility] 06-05-2021 05:15-0400 Inhaled oxygen flow rate 2 L/min MD Ace Abbott Work Phone: [facility] 05-27-2021 15:50-0400 Body mass index (BMI) [Ratio] 34.2 kg/m2 MD Ace Abbott Work Phone: [facility] 05-27-2021 14:55-0400 Diastolic blood pressure 66 mm[Hg] MD Ace Abbott Work Phone: [facility] 05-27-2021 14:55-0400 Systolic blood pressure 104 mm[Hg] MD Ace Abbott Work Phone: [facility] 05-27-2021 11:53-0400 Body temperature 97.6 [degF] MD Ace Abbott Work Phone: [facility] 05-27-2021 11:53-0400 Heart rate 69 /min MD Ace Abbott Work Phone: [facility] 05-27-2021 11:53-0400 SaO2% (BldA) [Mass fraction] 94 % MD Ace Abbott Work Phone: [facility] 05-27-2021 06:00-0400 Body weight 97 kg MD Ace Abbott Work Phone: [facility] 05-27-2021 04:00-0400 Respiratory rate 18 /min MD Ace Abbott Work Phone: [facility] 05-25-2021 11:50-0400 Body height 167.64 cm MD Ace Abbott Work Phone: [facility] 05-25-2021 08:21-0400 65 1 Ace Lawrencey Work Phone: [facility] 250 DO Work Phone: Comment on above: [id number] 05-22-2021 15:48-0400 Inhaled oxygen flow rate 8 L/min MD Ace Abbott Work Phone: [facility] 05-22-2021 13:56-0400 Body mass index (BMI) [Ratio] 68.1 kg/m2 MD Ace Abbott Work Phone: [facility] 02-18-2021 11:25-0500 Diastolic blood pressure 76 mm[Hg] Ace Lawrencey Work Phone: [facility] 600 DO Work Phone: 02-18-2021 11:25-0500 Heart rate 74 /min Ace Valenzuela Hoy Work Phone: [facility] 600 DO Work Phone: 02-18-2021 11:25-0500 Systolic blood pressure 110 mm[Hg] Ace Valenzuela Hoy Work Phone: [facility] 600 DO Work Phone: Encounters Encounter Date Encounter Type Care Provider Facility Start: 04-19-2023 End: 04-19-2023 ambulatory SABRA PRATT [facility] Start: 04-19-2023 End: 04-19-2023 Office outpatient visit 15 minutes Sabra Pratt MD Work Phone: [facility] Comment on above: Benign prostatic hyp erplasia, unspecified whether lower urinary tract symptoms present (Primary Dx) Start: 03-31-2023 Kristian PAVON Work Phone: [facility] Start: 02-16-2023 End: 02-16-2023 ambulatory [facility] Start: 02-16-2023 End: 02-16-2023 Office outpatient visit 25 minutes Pino Dunbar MD Work Phone: [facility] Comment on above: Persistent atrial fi brillation (CMS/HCC) (Primary Dx); 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; Mixed hyperlipidemia; Status post insertion of drug eluting coronary artery stent; BMI 30.0-30.9,adult Start: 01-20-2023 End: 01-21-2023 ambulatory [facility] Start: 08-23-2022 ambulatory Antoine Ledezma ty:JONATHAN Casanova Start: 07-29-2022 End: 07-30-2022 ambulatory [facility] Start: 06-10-2022 EKG, Provider: LIZET STRATTON WAGE CONCILIATOR 1,[id number], Status: Pen, Time: 1:30 PM Ace Abbott Work Phone: [facility] 250 DO Work Phone: Start: 06-10-2022 Patient encounter procedure Ace Abbott Work Phone: [facility] 250 DO Work Phone: Start: 06-10-[address] Pino Dunbar Facility: Start: 06-07-2022 Patient encounter procedure Ace Abbott Work Phone: [facility] 250 DO Work Phone: Start: 06-07-[address] Pino Dunbar Facility: Start: 05-28-[address] Pino Dunbar Facility:[id number] Start: 05-27-[address] Pino Dunbar Facility:[id number] Start: 05-26-2022 End: 05-29-2022 Evaluation and management of inpatient Delvin Rodriguez Facility:[facility] Start: 05-26-2022 End: 05-29-2022 Evaluation and management of inpatient MD Ace Abbott Work Phone: [facility] Work Phone: Start: 05-25-2022 Evaluation and manag ement of inpatient MD Ace Abbott Work Phone: [facility] Work Phone: Start: 05-25-2022 observation encounter MD Chava Abbott Work Phone: [facility] Work Phone: Start: 03-22-2022 End: 04-03-2022 Evaluation and management of inpatient Horace Palafox Facility:[facility] Start: 03-22-2022 End: 04-03-2022 Evaluation and management of inpatient MD Ace Abbott Work Phone: [facility] Work Phone: Start: 03-10-2022 End: 03-10-[address] ACE ABBOTT . Facility: Start: 02-20-2022 End: 02-21-[address] DOCTOR LOMBARDI Facility: Start: 02-19-2022 End: 02-20-2022 ambulatory Antoine MEAD Facility:[facility] Start: 02-19-2022 End: 02-19-2022 Patient encounter procedure Antoine MEAD [facility] Start: 12-26-2021 Encounter for preprocedural laboratory examination DR ACE ABBOTT . [facility] Start: 12-25-2021 End: 12-25-2021 ambulatory MD Ace Abbott Work Phone: [facility] Work Phone: Start: 12-25-2021 End: 12-25-2021 Departed Referred MD [facility] [place] Start: 12-23-2021 End: 12-24-[address] ACE ABBOTT . Facility:[facility] Start: 12-23-2021 End: 12-24-2021 Encounter for preprocedural laboratory examination DR ACE ABBOTT . Facility:[facility] Start: 12-21-2021 End: 12-21-[address] ACE ABBOTT . Facility:[facility] Start: 12-15-2021 End: 12-15-[address] ACE ABBOTT . Facility:[facility] Start: 12-12-2021 End: 12-13-[address] ACE ABBOTT . Facility:[facility] Start: 12-07-2021 End: 12-07-2021 ambulatory Soham Cash Jr Facility:[facility] Start: 12-07-2021 End: 12-07-2021 ambulatory MD Ace Abbott Work Phone: [facility] Work Phone: Start: 12-07-2021 End: 12-07-2021 Patient encounter procedure MD Ace Abbott Work Phone: [facility]Pre-Surgical [facility] Start: 11-24-[address] Pino Dunbar Facility: Start: 10-08-2021 End: 10-09-2021 ambulatory Antoine MEAD Facility:[id number] Start: 10-07-2021 End: 10-11-2021 Evaluation and management of inpatient DR ACE ABBOTT . Facility:[facility] Start: 09-10-2021 End: 09-10-2021 ambulatory Soham Cash Jr Facility:[facility] Start: 09-10-2021 End: 09-10-2021 Departed Referred MD Ace Abbott [facility] [place] Start: 09-07-2021 End: 09-07-[address] ACE ABBOTT . Facility: Start: 08-24-2021 End: 08-24-2021 ambulatory Soham Cash Jr Facility:[facility] Start: 08-24-2021 End: 08-24-2021 Patient encounter procedure MD Ace Abbott Work Phone: [facility] Start: 08-04-2021 End: 08-04-2021 ambulatory Ace Abbott Facility:[facility] Start: 08-04-2021 End: 08-04-2021 Anticoagulant drug monitoring MD Ace Abbott Work Phone: [facility] [place] Start: 07-10-2021 End: 07-11-[address] SIVAN MOTT Facility: Start: 06-19-2021 Office outpatient vi sit 10 minutes Ace Abbott Work Phone: [facility] 250 DO Work Phone: Start: 05-27-2021 End: 06-11-2021 Evaluation and management of inpatient MD Ace Abbott Work Phone: [facility] Start: 05-24-2021 End: 05-27-2021 Evaluation and management of inpatient MD Ace Abbott Work Phone: [facility] Start: 05-19-2021 End: 05-20-2021 ambulatory MR ANNA VALENCIA . Facility:[facility] Start: 05-06-2021 End: 05-06-2021 Patient encounter procedure MD Ace Abbott Work Phone: [facility] Start: 05-05-2021 End: 05-05-2021 Patient encounter procedure MD Ace Abbott Work Phone: [facility] Start: 02-18-2021 Office outpatient vi sit 15 minutes Ace Abbott Work Phone: [facility] 600 DO Work Phone: Patient encounter status Ace Abbott Work Phone: [facility] 250 DO Work Phone: Procedures Date Procedure Procedure Detail Performing Clinician Start: 04-19-2023 Follow-up visit Follow-up SABRA G ANALIA Start: 02-16-2023 ECG 12-LEAD PINO DUNBAR Start: 02-16-2023 Ecg routine ecg w/least 12 lds w/i&r Pino Dunbar MD Work Phone: Start: 11-29-2022 History of placement of stent for coronary artery disease Status post insertion of drug eluting coronary artery stent Pino Dunbar MD Work Phone: Start: 05-27-2022 Magnetic resonance cholangiopancreatography MD Ace Abbott Work Phone: Start: 05-25-2022 US scan of gallbladder MD Ace Abbott Work Phone: Start: 05-25-2022 Computed tomography of abdomen and pelvis with contrast MD Ace Abbott Work Phone: Start: 05-25-2022 Plain chest X-ray MD Aec Abbott Work Phone: Start: 03-26-2022 Duplex scan of lower limb veins MD Chava Abbott Work Phone: Start: 12-07-2021 Antibody screen Soham Cash Jr Comment on above: Order Comment: Date of Surgery: [id number] # of PRBC units on hold?: 2 Result Comment: PERF ORMED BY: [facility] [address] [place] [address] PATHOLOGIST VENDING MACHINE TECHNICIAN CHELSY BHAGAT M.D. Start: 12-07-2021 Plain X-ray of right hip MD Ace Abbott Work Phone: Start: 10-11-2021 Insertion of Infusion Device into Upper Vein, Percutaneous Approach DR ACE ABBOTT . Start: 08-24-2021 Antibody screen Soham Cash Jr Comment on above: Order Comment: Date of Surgery: [id number] # of PRBC units on hold?: 2 Result Comment: PERF ORMED BY: [facility] [address] [place] [address] PATHOLOGIST VENDING MACHINE TECHNICIAN CHELSY BHAGAT M.D. Order Comment: Date of Surgery: [id number] # of PRBC units on hold?: 2 Start: 08-24-2021 Plain X-ray of right hip MD Bello Howardruth Work Phone: Start: 06-10-2021 SARS Antigen (LFIA) MD Ace Abbott Work Phone: Start: 06-05-2021 Aerobic microbial culture MD Ace Abbott Work Phone: Start: 06-05-2021 Anaerobic microbial culture MD Bello Kenji garcia Work Phone: Start: 06-05-2021 Investigation of transfusion reaction MD Ace Abbott Work Phone: Start: 05-27-2021 SARS Antigen (LFIA) MD Aec Abbott Work Phone: Start: 05-24-2021 Blood culture for bacteria, including anaerobic screen MD Bello Howardruth Work Phone: Start: 05-24-2021 Plain chest X-ray MD Ace Abbott Work Phone: Start: 05-22-2021 Plain X-ray of left hip MD Ace Abbott Work Phone: Start: 05-22-2021 Revision of left total hip arthroplasty MD Ace Abbott Work Phone: Start: 05-06-2021 Urine culture MD Bello Howardruth Work Phone: Cardiac catheterization Julián Abbott Work Phone: Cardiac catheterization Alison MEAD Excision of lesion f rom soft tissue of face Antoine MEAD Hernia repair Ace Abbott Work Phone: History of hernia repair Kendra MEAD History of placement of stent for coronary artery disease Status post insertion of drug eluting coronary artery stent Ace Abbott Work Phone: History of placement of stent for coronary artery disease Status post insertion of drug eluting coronary artery stent Pino Dunbar MD Work Phone: Operative procedure on wrist Ace Abbott Work Phone: Placement of stent i n cardiac conduit Antoine MEAD Comment on above: x4 Total colonoscopy Ace Abbott Work Phone: Plan of Treatment Date Care Activity Detail Author Start: 04-24-2024 End: 04-24-2024 Patient encounter procedure 04/24/2024 2:45 PM EDT Office Visit [facility] [address] [place] [address] [address] [facility] [address] Sabra Pratt MD [address] [place] [address] [id number] [facility] Start: 04-18-2024 Adult BMI Screening Adult BMI Screening [facility] Start: 04-18-2024 Tobacco Screening Tobacco Screening [facility] Start: 09-30-2023 Adult BMI Screening Adult BMI Screening [facility] Start: 09-30-2023 Tobacco Screening Tobacco Screening [facility] Start: 09-01-2023 End: 09-01-2023 Patient encounter procedure 09/01/2023 11:20 AM EDT Office Visit [address] [place] [address] Pino Dunbar MD [address] [facility] 2, [facility] [address] [place] [address] [facility] Start: 04-19-2023 End: 04-19-2023 Patient encounter procedure 04/19/2023 3:15 PM EDT Office Visit [facility] [address] [place] [address] [place] [address] Sabra Pratt MD [address] [place] [address] [id number] [facility] Start: 10-08-2022 Influenza vaccination [facility] Start: 08-31-2022 FUV, Provider: Pino Dunbar, Status: Pen, Time: 10:40 AM FUV, Provider: Pino Dunbar, Status: Pen, Time: 10:40 AM [facility] 250 DO Work Phone: Start: 05-29-2022 [facility] Start: 05-27-2022 Referral to cdl bulk driver [facility] Start: 05-27-2022 Referral to edi coordinator [facility] Start: 05-26-2022 Referral to general surgeon [facility] Start: 05-25-2022 Hospital admission [facility] Start: 04-02-2022 [facility] Start: 03-22-2022 Hospital admission [facility] Start: 03-22-2022 Referral to clinical vascular sonographer [facility] Start: 12-25-2021 Revision of hip arthroplasty OR Total Hip Arthro MIS/Revision (Right) [facility] Start: 11-24-2021 FUV, Provider: Pino Dunbar, Status: Pen, Time: 10:40 AM FUV, Provider: Pino Dunbar, Status: Pen, Time: 10:40 AM [facility] 600 DO Work Phone: Start: 09-10-2021 Revision of hip arthroplasty OR Total Hip Arthro MIS/Revision (Right) [facility] Start: 06-05-2021 Anaerobic microbial culture Anaerobic Culture [facility] Start: 05-24-2021 Blood culture for bacteria, including anaerobic screen Blood Culture [facility] Start: 05-24-2021 Replacement of Left Hip Joint with Metal on Polyethylene Synthetic Substitute, Uncemented, Open Approach [facility] Start: 05-06-2021 Urine culture Urine Culture [facility] Start: 01-20-2021 COVID-19 Vaccine (2 - Booster for Luke series) COVID-19 Vaccine (2 - Booster for Luke series) [facility] Start: 10-20-2008 Fall Risk Screening Fall Risk Screening [facility] Start: 10-20-1993 Administration of varicella zoster vaccine Zoster (Shingles) Vaccine (1 of 2) [facility] Start: 10-20-1993 Zoster Vaccines (1 of 2) Zoster Vaccines (1 of 2) [facility] Start: 10-20-1965 DTaP/Tdap/Td Vaccines (1 - Tdap) DTaP/Tdap/Td Vaccines (1 - Tdap) [facility] Start: 10-20-1962 DTaP,Tdap and Td Vaccines (1 - Tdap) DTaP,Tdap and Td Vaccines (1 - Tdap) [facility] Start: 10-20-1961 Adult BMI Follow Up Plan Adult BMI Follow Up Plan [facility] Start: 10-20-1961 Diabetes mellitus screening Diabetes Screening [facility] Start: 10-20-1961 Hepatitis C screening Hepatitis C Screening [facility] Start: 1955 Depression Screening Depression Screening [facility] Start: 10-20-1949 Pneumococcal Vaccine: 65+ Years (1 - PCV) Pneumococcal Vaccine: 65+ Years (1 - PCV) [facility] Start: 1945 Lipid panel Lipid Panel [facility] Start: 1945 Medicare Annual Wellness Visit [facility] Bacteria identified in Urine by Culture [facility] Work Phone: Bilirubin measurement, urine [facility] Work Phone: Color of Urine [facility] Work Phone: Detection of hemoglobin [facility] Work Phone: Glucose [Mass/volume ] in Urine by Test strip [facility] Work Phone: Measurement of keton es in urine using dipstick [facility] Work Phone: Patient Education [facility] Work Phone: Patient referral [facility] Work Phone: Protein measurement, urine [facility] Work Phone: Urinalysis, specific gravity measurement [facility] Work Phone: Urine dipstick for nitrite [facility] Work Phone: Urine dipstick for s pecific gravity [facility] Work Phone: Urine pH test [facility] Work Phone: Urobilinogen concent ration, test strip measurement [facility] Work Phone: [facility] Immunizations Immunization Date Immunization Notes Care Provider Dejuan allen 09-15-2021 COVID-19 mRNA, Chely nguyễn (Pfizer) MD Ace Abbott Work Phone: [facility] 01-20-2021 COVID-19 mRNAChely (Pfizer) MD Ace Abbott Work Phone: [facility] 01-20-2021 SARS-CoV-2 mRNA (tozinameran 5y-11y) vaccine Antoine MEAD [facility] 10-28-2020 influenza virus vacc ine, unspecified formulation Antoineaudra MEAD [facility] 04-24-2020 Luke COVID-19 Vac cine 0.5 ML Intramuscular Suspension Ace Abbott Work Phone: [facility] DO Work Phone: 04-14-2020 COVID-19 Ad26.COV2.S (Luke) MD Ace Abbott Work Phone: [facility] 04-14-2020 SARS-CoV-2 mRNA (tozinameran 5y-11y) vaccine Antoine MEAD [facility] 11-08-2019 influenza virus vacc ine, unspecified formulation Ace Abbott Work Phone: [facility] DO Work Phone: Payers Date Payer Category Payer Unknown 2021 Self-pay [id number] 2021 Unknown [id number] 2017 Private Health Insurance [facility] SUPPLEMENT [id number] 2017-Present [phone] [address] [place] [address] [id number] 2008 Medicare [id number] 1959 Medicare [id number] 1959 Unknown [id number] 1945 Unknown [id number] 2.16.840.1.285281.3.579.2 .593 1943 Unknown [id number] 2.16.840.1.519615.3.579.2 .593 1943 Unknown [id number] 2.16.840.1.550177.3.579.2 .593 1943 Unknown [id number] 2.16.840.1.630505.3.579.2 .593 1943 Unknown [id number] 2.16.840.1.852943.3.579.2 .593 1943 Unknown [id number] 2.16.840.1.910098.3.579.2 .593 1943 Unknown [id number] 2.16.840.1.550897.3.579.2 .593 1943 Unknown [id number] 2.16.840.1.460778.3.579.2 .593 1943 Unknown [id number] 2.16.840.1.347111.3.579.2 .593 1943 Unknown [id number] 2.16.840.1.626959.3.579.2 .593 1943 Unknown [id number] 2.16.840.1.346263.3.579.2 .593 1943 Unknown [id number] 2.16.840.1.940943.3.579.2 .356 1943 Unknown [id number] 2.16.840.1.886015.3.579.2 .356 1943 Unknown [id number] 2.16.840.1.043156.3.579.2 .356 1943 Unknown [id number] 2.16.840.1.929410.3.579.2 .356 1943 Unknown [id number] 2.16.840.1.965182.3.579.2 .356 1943 Unknown [id number] 2.16.840.1.341415.3.579.2 .727 1943 Unknown [id number] 2.16.840.1.034960.3.579.2 .727 1943 Unknown [id number] 2.16.840.1.055052.3.579.2 .727 1943 Unknown [id number] 2.16.840.1.145127.3.579.2 .1286 1943 Unknown [id number] 2.16.840.1.662217.3.579.2 .1244 Unknown [id number] 2.16.840.1.580382.3.579.2 .531 Unknown [id number] 2.16.840.1.835832.3.579.2 .531 Unknown [id number] 2.16.840.1.035384.3.579.2 .531 Unknown [id number] 2.16.840.1.941299.3.579.2 .531 Unknown [id number] 2.16.840.1.854630.3.579.2 .531 Unknown [id number] 2.16.840.1.393443.3.579.2 .531 Unknown [id number] 2.16.840.1.371777.3.579.2 .531 Social History Date Type Detail Facility Start: 03-19-2020 End: 02-16-2023 No alcohol use No alcohol use [facility] Comment on above: Occasionally coffee decaf-1 cup; Quit smokiing 50-60 years-smoked a pipe; 1 CUP OF TEA DAILY; Start: 05-05-2021 End: 02-03-2023 Tobacco smoking status NHIS Ex-smoker (finding) [facility] Start: 1945 Sex Assigned At Male F [facility] Start: 03-19-2020 End: 02-16-2023 Sex Assigned At Male [facility] End: 02-07-1969 History of tobacco use Current smoker [facility] Work Phone: End: 02-07-1969 History of tobacco use Pipe Smoker [facility] Work Phone: Start: 08-03-2022 End: 02-03-2023 Tobacco use and exposure Smokeless tobacco non-user [facility] Work Phone: Start: 02-16-2023 Alcohol intake Lifetime non-d shilpa (finding) [facility] Work Phone: Start: 1945 Sex Assigned At Not on file [facility] Work Phone: Start: 02-06-2023 End: 02-16-2023 Exposure to SARS-CoV-2 (event) Not sure [facility] Start: 08-03-2022 Tobacco smoking stat us KSIS Never smoked tobacco [facility] Start: 09-29-2022 End: 04-19-2023 Alcohol intake Current non-drinker of alcohol (finding) [facility] Frequency of Alcohol Consumption Never [facility] Medical Equipment Procedure Code Equipment Code Equipment Origin al Text Equipment Identifier Dates 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 Orthopaedic bone screw, non-bioabsorbable, sterile [id number] FDA Start: 05-22-2021 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 Acetabular shell ()[id number] FDA Start: 05-22-2021 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 Non-constrained polyethylene acetabular liner ()[id number] FDA Start: 05-22-2021 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 Acetabulum prosthesis hole plug ()[id number] FDA Start: 05-22-2021 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 Metallic femoral head prosthesis ()[id number] FDA Start: 05-22-2021 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 Coated hip femur prosthesis, modular ()[id number] FDA Start: 05-22-2021 [id number] FDA Start: 07-23-2020 Drug-eluting cor onary artery stent, qyx-lhnymmbywzogl-baiz shira-coated ()[id number] FDA Start: 07-23-2020 Drug-eluting cor onary artery stent, coc-fgepqucthzthr-ucjl shira-coated ()[id number] FDA Start: 07-23-2020 Drug-eluting cor onary artery stent, dzl-hdhziffzpghng-byhk shira-coated ()[id number] FDA Start: 07-30-2020 [id number] FDA Start: 07-23-2020 [id number] FDA Start: 07-23-2020 [id number] FDA Start: 07-23-2020 [id number] FDA Start: 07-23-2020 [id number] FDA Start: 07-23-2020 [id number] FDA Start: 07-23-2020 [id number] FDA Start: 07-23-2020 [id number] FDA Start: 07-23-2020 Goals Date Patient Goal Desired Activity /State Functional Status Date Assessment Result Facility 05-25-2022 Functional status Patient is Pro gressing Toward Baseline [facility] Work Phone: 04-03-2022 Functional status Patient Not at Baseline [facility] Work Phone: 02-19-2022 Functional Status N/A [facility] 06-11-2021 Functional status Patient is Pro gressing Toward Baseline [facility] Work Phone: 05-27-2021 Functional status Patient is Pro gressing Toward Baseline [facility] Work Phone: Mental Status Date Assessment Result Facility 05-25-2022 Cognitive function Cognitive Sta tus Patient at Baseline [facility] Work Phone: 04-03-2022 Cognitive function Cognitive Sta tus Patient at Baseline [facility] Work Phone: 06-11-2021 Cognitive function Cognitive Sta tus Patient is Progressing Toward Baseline [facility] Work Phone: 05-27-2021 Cognitive function Cognitive Sta tus Patient is Progressing Toward Baseline [facility] Work Phone: Clinical Notes 05-22-2021 to 04-19-2023 Sabra Pratt MD - 04/19/2023 3:15 PM Max Dunbar MD - 02/16/2023 11:00 AM ESTPatient Instructions Note Date & Type Note Facility 04-19-2023 History of Present illness Narrative Images from the original note were not included. [address] [place] [address] A [facility] [id number] Patient: Angella Pradhan Date of : 1945 Encounter Date: 04/19/2023 History of Present Illness: The patient is a 77 y.o. male, an established patient, and is here for follow-up..He has a history of an elevated PSA as high as 11.97 with prior biopsies in 2007, 2009 in 2012. He had 136 cubic cream prostate in 2012. 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 His unfortunately in 2020. Patient has been taking tamsulosin and finasteride. He developed bilateral hip issues and was supposed to have then replaced but then had an MO. After he had that treated with stents he failed attempts at getting his hips were placed because he was having positive urine cultures. With each of those however he was asymptomatic with no dysuria or hematuria. Eventually they did replaced both hips. He was seen in September 2022 with ongoing issues with nocturia every 2 hours. No daytime frequency or urgency but was having leakage when standing PVR was 0. Repeat PSA was 2.69. He performed a voiding diary showing nocturia 2 times per evening voiding 100-150 cc at a time. Trialed on Myrbetriq which gave him a 60% improvement. Is also maintained on tamsulosin. Was wearing depends and still using this just in case but reports that he is dry. Summary of old records: Urinalysis today: No results for input(s): EXTPOCURCO , EXTPOCURCH , EXTPOCAPP , EXTPOCURBS , EXTPOCURBIL , EXTPOCUKET , EXTPOCUSPG , EXTPOCUHGB , EXTPOCUPRO , EXTPOCUURO , EXTPOCULEU , EXTPOCUNIT , EXTPOCUWBC , EXTPOCUBLD , EXTPOCURBC , EXTPOCUCRY , EXTPOCUBAC , EXTPOCUTREP , EXTPOCUPH in the last 72 hours. Last BUN and creatinine: No results found for: BUN No results found for: CREATININE Last PSA: Lab Results Component Value Date PSA 2.69 08/03/2022 No results found for: PROSTATICSP Additional Lab/Culture results: None Imaging Reviewed during this Office Visit: None (Results were independently reviewed by physician and radiology report verified) Past Medical, Family, and Social History Update: The following portions of the patient's history were reviewed and updated as appropriate: allergies, current medications, past family history, past medical history, past social history, past surgical history and problem list. Past Medical History: Diagnosis Date BPH (benign prostatic hyperplasia) High cholesterol Hypercholesteremia Hypertension MO (myocardial infarction) ([facility]) Past Surgical History: Procedure Laterality Date CARDIAC SURGERY 4 stents placed CARPAL TUNNEL RELEASE HERNIA REPAIR HIP ARTHROSCOPY Left HIP ARTHROSCOPY Right PROSTATE SURGERY biopsy Family History Problem Relation Age of Onset No Known Problems Mother Current Outpatient Medications Medication Sig Dispense Refill apixaban (ELIQUIS) 5 mg tablet Take 1 tablet (5 mg total) by mouth in the morning and 1 tablet (5 mg total) before bedtime. ascorbic acid, vitamin C, 500 mg tablet,chewable every 12 (twelve) hours. aspirin 81 mg Take 1 tablet (81 mg total) by mouth in the morning. atorvastatin (LIPITOR) 40 mg tablet Take 1 tablet (40 mg total) by mouth in the morning. cholecalciferol, vitamin D3, 2,000 units capsule Take 1 capsule (2,000 Units total) by mouth in the morning. ferrous sulfate 325 (65 FE) mg EC tablet Take by mouth. finasteride (PROSCAR) 5 mg tablet Take 1 tablet (5 mg total) by mouth in the morning. magnesium oxide (MAGOX) 400 mg tablet Take 1 tablet (400 mg total) by mouth in the morning and 1 tablet (400 mg total) before bedtime. MYRBETRIQ 50 mg tablet extended release 24 hr TAKE 1 TABLET BY MOUTH IN THE MORNING 30 tablet 5 pantoprazole (PROTONIX) 40 mg EC tablet sotaloL (BETAPACE) 80 mg tablet TAKE 1/2 (ONE-HALF) OF A TABLET BY MOUTH TWICE DAILY tamsulosin (FLOMAX) 0.4 mg capsule Take 1 capsule (0.4 mg total) by mouth in the morning. simvastatin (ZOCOR) 40 mg tablet Take 40 mg by mouth daily. (Patient not taking: Reported on 08/03/2022) 3 No current facility-administered medications for this visit. (All medications reviewed and updated by provider since last office visit or hospitalization) Allergies: Sulfamethoxazole-trimethoprim Tobacco History: Social History Tobacco Use Smoking Status Never Smokeless Tobacco Never (If patient a smoker, smoking cessation counseling offered) Social History: Social History Substance and Sexual Activity Alcohol Use No Review of Systems: General: Negative for chills and fever. Cardiovascular: Negative for chest pain and shortness of breath. Gastrointestinal: Negative for constipation, diarrhea, nausea, and vomitting. Physical Exam: BP 102/64 Pulse 70 Ht 167.6 cm (5' 6 ) Wt 81.6 kg (180 lb) BMI 29.05 kg/m Assessment and Plan: Islam was seen today for follow-up. Diagnoses and all orders for this visit: Benign prostatic hyperplasia, unspecified whether lower urinary tract symptoms present Problem List Genitourinary Benign prostatic hyperplasia - Primary Overview 08/03/22: LUTS - biggest complaint is nocturia. Plan for voiding diary. May have him tested for sleep apnea. He also describes classic asymptomatic bacteriuria. I told him that given lack of symptoms this is a common finding as we age and the treatment is to not treat this. Plan to check psa 08/24/22: Voiding diary with volumes 100-150cc at night along with urgency and urge incontinenence. Plan for trial myrbetriq 50 mg. Will monitor bp at home 09/29/22: 60% improvement with Myrbetriq 50mg. PVR 109. Content with current state 04/19/23: doing well using myrbetriq 50 mg Follow-up: Sbara Pratt MD This note was created with the assistance of a speech recognition program. While intending to generate a timely document that accurately reflects the content of the visit, no guarantee can be provided that every grammatical or spelling mistake has been or will be identified or corrected. Thank you for your understanding. documented in this encounter [facility] 02-16-2023 History of Present illness Narrative Subjective Angella Pradhan is a 77 y.o. male Chief Complaint Follow-up HPI Patient is here for follow-up continue management for atrial fibrillation, hypertension, coronary artery disease on long-term anticoagulation. Since last time I saw him he reports he is feeling reasonably well. He denies any complaint of chest pain, palpitation, lightheadedness, dizziness or syncope. Admits to limited exercise tolerance due to balance issues, age and hip problem. His recent laboratory data noted and reviewed with him. EKG today showed normal sinus rhythm with normal QTc interval. With borderline first-degree AV block Assessment 1. Atrial fibrillation currently on sotalol currently in sinus rhythm with normal QTc interval. His digoxin was discontinued and sotalol was reduced due to bradycardia. Heart rate and QTc interval is acceptable 2. Borderline hypotension responded to midodrine 3. Coronary artery disease with PCI to the LAD and diagonal with known occlusion of his RCA 4. Long-term anticoagulation with Eliquis tolerated well 5. Recent hospitalization for GI symptoms seem to improve without any intervention 6. Obesity 7. Recent finding of large hiatal hernia Plan 1. I advised the patient to continue present medical regimen 2. I reviewed his recent lab work with him 3. Patient advised to notify me change in cardiac status or symptoms and keep his follow-up appointment 4. I reviewed with him his EKG 5. We will see him back in 6 months and follow-up Review of Systems All other systems reviewed and are negative. Visit Vitals BP 113/68 Pulse 69 Ht 1.651 m (5' 5 ) Wt 82.6 kg (182 lb) BMI 30.29 kg/m Smoking Status Former BSA 1.95 m Objective Physical Exam Constitutional: Appearance: Normal appearance. He is normal weight. HENT: Nose: Nose normal. Neck: Vascular: No carotid bruit. Cardiovascular: Rate and Rhythm: Normal rate. Pulses: Normal pulses. Heart sounds: Normal heart sounds. Pulmonary: Effort: Pulmonary effort is normal. Abdominal: General: Bowel sounds are normal. Palpations: Abdomen is soft. Genitourinary: Rectum: Normal. Musculoskeletal: General: Normal range of motion. Cervical back: Normal range of motion. Right lower leg: No edema. Left lower leg: No edema. Skin: General: Skin is warm and dry. Neurological: General: No focal deficit present. Mental Status: He is alert. Psychiatric: Mood and Affect: Mood normal. Behavior: Behavior normal. Thought Content: Thought content normal. Judgment: Judgment normal. Current Medications Current Outpatient Medications: ascorbic acid (Vitamin C) 500 mg chewable tablet, Chew 2 tablets (1,000 mg) once daily., Disp: , Rfl: aspirin 81 mg EC tablet, Take 1 tablet (81 mg) by mouth once daily., Disp: , Rfl: atorvastatin (Lipitor) 40 mg tablet, Take 1 tablet (40 mg) by mouth once daily at bedtime., Disp: , Rfl: cholecalciferol (Vitamin D-3) 50,000 unit capsule, Take 1 capsule (50,000 Units) by mouth once daily., Disp: , Rfl: Eliquis 5 mg tablet, Take 1 tablet (5 mg) by mouth 2 times a day., Disp: , Rfl: ferrous sulfate 325 (65 Fe) MG tablet, Take 1 tablet by mouth 3 times a day., Disp: , Rfl: finasteride (Proscar) 5 mg tablet, Take 1 tablet (5 mg) by mouth once daily., Disp: , Rfl: magnesium oxide (Mag-Ox) 400 mg tablet, 1 tablet (400 mg) 2 times a day., Disp: , Rfl: mirabegron (Myrbetriq) 50 mg tablet extended release 24 hr 24 hr tablet, Take 1 tablet (50 mg) by mouth once daily., Disp: , Rfl: pantoprazole (ProtoNix) 40 mg EC tablet, Take 1 tablet (40 mg) by mouth once daily in the morning. Take before meals., Disp: , Rfl: sotalol (Betapace) 80 mg tablet, Take 0.5 mg by mouth every 12 hours., Disp: 90 tablet, Rfl: 3 tamsulosin (Flomax) 0.4 mg 24 hr capsule, Take 1 capsule (0.4 mg) by mouth once daily., Disp: , Rfl: Assessment/Plan 1. Persistent atrial fibrillation (CMS/HCC) 2. 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 3. Mixed hyperlipidemia 4. Status post insertion of drug eluting coronary artery stent 5. BMI 30.0-30.9,adult documented in this encounter [facility] Work Phone: 02-16-2023 Instructions Dali Malone LPN - 02/16/2023 11:00 AM EST Please bring all medicines, vitamins, and herbal supplements with you when you come to the office. Prescriptions will not be filled unless you are compliant with your follow up appointments or have a follow up appointment scheduled as per instruction of your physician. Refills should be requested at the time of your visit. Follow up 6 months Same medications. documented in this encounter [facility] Work Phone: 01-20-2023 Note Orthopedic Surgery Subjective Chief complaint: Chief Complaint Patient presents with Right Hip - Follow-up 07/29/2022 Angella Pradhan is a 77 y.o. year old male presenting for follow up for his Right hip He is S/P Right GAVIN through a DAA, DOS 03/19/2022 he is almost 5 months post op. He is overall doing well, he has no pain , he is walking with a walker and uses a wheel chair for long distances and is doing PT, patient is satisfied with the results of surgery. He stated that he hasnt walked for a year and half and he is doing a lot of progress. His wounds healed well and denied any wound problems. 01/20/2023 Patient is presenting today for follow up for his Right hip. Patient with history of Right GAVIN DOS 03/19/2022 he is overall doing well, He is walking using a walker , he stated that he has some groin pain 2 weeks ago , mild pain that only stayed for a week and improved, patient is happy with the results of surgery, he is presenting accompanied by his son , new X rays obtained today Patient History Past Surgical History: Procedure Laterality Date COLONOSCOPY CORONARY ANGIOPLASTY WITH STENT PLACEMENT LORY HERNIA REPAIR HIP SURGERY Left WRIST SURGERY Past Medical History: Diagnosis Date Anemia Arrhythmia AFIB Back pain CAD (coronary artery disease) GERD (gastroesophageal reflux disease) Hip pain Hyperlipidemia Hypotension Obesity Sacral decubitus ulcer UTI (urinary tract infection) ON ABX Objective General exam : patient is AOX3, NAD, looks comfortable Exam of the Right hip showed well healed incision with no redness hotness or drainage Good ROM Right hip, no pedal swelling, and intact N/V exam Imaging personally reviewed: X rays of the Right hip and pelvis,obtained today in clinic 01/20/2023 personally reviewed and interpreted by me showed Right GAVIN in good alignment . No subsidence or migration Assessment/Plan Angella Pradhan is a 77 y.o. year old male with history of Rigth GAVIN , overall doing very well Continue WBAT with a walker and work with PT F/U in one year for follow up [facility] 07-29-2022 Note Orthopedic Surgery Subjective Chief complaint: Chief Complaint Patient presents with Right Hip - Follow-up 07/29/2022 Angella Pradhan is a 76 y.o. year old male presenting for follow up for his Right hip He is S/P Right GAVIN through a DAA, DOS 03/19/2022 he is almost 5 months post op. He is overall doing well, he has no pain , he is walking with a walker and uses a wheel chair for long distances and is doing PT, patient is satisfied with the results of surgery. He stated that he hasnt walked for a year and half and he is doing a lot of progress. His wounds healed well and denied any wound problems. Patient History Past Surgical History: Procedure Laterality Date COLONOSCOPY CORONARY ANGIOPLASTY WITH STENT PLACEMENT LORY HERNIA REPAIR HIP SURGERY Left WRIST SURGERY Past Medical History: Diagnosis Date Anemia Arrhythmia AFIB Back pain CAD (coronary artery disease) GERD (gastroesophageal reflux disease) Hip pain Hyperlipidemia Hypotension Obesity Sacral decubitus ulcer UTI (urinary tract infection) ON ABX Objective General exam : patient is AOX3, NAD, looks comfortable Exam of the Right hip showed well healed incision with no redness hotness or drainage Good ROM Right hip, no pedal swelling, and intact N/V exam Imaging personally reviewed: X rays of the Right hip and pelvis,obtained today in clinic personally reviewed and interpreted by me showed Right GAVIN in good alignment . No subsidence or migration Assessment/Plan Angella Pradhan is a 76 y.o. year old male with history of Rigth GAVIN , overall doing very well Continue WBAT with a walker and work with PT F/U in 6 months for clinical reevaluation [facility] 05-29-2022 Discharge summary Note Date/Time May 29, 2022 5:38pm [facility] [address] [place] [address] Discharge Summary Signed Patient: Angella Pradhan MR#: [id number] : 1945 Acct:[id number] Age/Sex: 76 / M Adm Date: 3 Loc: Room: [address] [place] [address]: Anshu Jennings MD Copies to: MD Anshu Gonsalves MD~ Providers Date of Discharge: 05/29/22 Discharging Provider: Anshu Jennings Primary Care Provider: Ace Abbott Consults: 05/26/22 07:41 Consult to General Surgery Routine 05/26/22 14:31 Consult to Occupational Therapy Routine Consult to Physical Therapy Routine 05/27/22 07:21 Consult to Gastroenterology Routine 05/27/22 08:02 Consult to Cardiology Routine Discharge Diagnosis (1) Epigastric pain: (2) Cholelithiasis: (3) Bradycardia: Final Diagnosis Final Discharge Diagnosis: Suspected acute cholecystitis Cholelithiasis, choledocholithiasis was ruled out by MRCP Possibly GERD, has large hiatal hernia ACS was ruled out AAA was ruled out Digoxin toxicity ruled out (level 0.8) Sinus Bradycardia likely medications induced Prolonged QTC Hx of Afib on Eliquis -medications adjusted Physical debility Functional decline Advanced age Recent left hip surgery -PT/OT ordered. Patient decline rehab and wanted to go home. Summary Hospital Course Hospital course: Suspected acute cholecystitis Cholelithiasis, choledocholithiasis was ruled out by MRCP Possibly GERD, has large hiatal hernia ACS was ruled out AAA was ruled out Digoxin toxicity ruled out (level 0.8) -Afebrile, WBC has normalized -Trop neg x 3. -CT AP showed no acute pathology. Hiatal hernia (known), cholelithiasis -GB US obtained showed suspected acute cholecystitis -MRCP was done, report noted. -Bilirubin and LFTs improved -Received antibiotics while here empirically -General surgery input appreciated. No acute interventions warranted inpatient so far. Will need surgery follow up as outpatient for possible cholecystectomy down the road -GI was consulted- input appreciated. -Monitor for abdominal pain -Pain control as needed -Antiemetics as needed -Continue PPI Sinus Bradycardia- likely medications induced Prolonged QTC Hx of Afib - on Eliquis -Asymptomatic at this time -had bradycardia with prolonged QTc while on sotalol -Discontinued Coreg and Digoxin. Sotalol was adjusted per cardiology to 60 mg BID, seems tolerating well so far -Cardiology input noted and appreciated. patient was cleared for discharge from cardio standpoint Physical debility Functional decline Advanced age Recent left hip surgery -PT/OT ordered. Patient decline rehab and wanted to go home Patient declined any further abdominal pain and tolerating diet well with no nausea or vomiting. Patient remained hemodynamically stable after adjustments of his cardiac medications, QTc has normalized and heart rate has improved as well as his blood pressure. Patient is asymptomatic at this time. He declined going to rehab and would like to go home discussed with patient at bedside his diagnosis and plan of care as well as outpatient follow-ups. Patient verbalizedunderstanding and in agreement with this plan and feels comfortable with discharge plan. Patient has multiple complex medical issues as listed above and others that are not listed. All appear to be stable at this time. Patient is feeling significantly better and feeling comfortable with this plan of discharge. I do not have any clear or strong clinical justification to extend inpatient hospitalization. Patient however will require close and the frequent monitoringas well as additional work-up, investigation and therapeutic intervention that could take place from this point on post discharge. That is to prevent relapse,decompensation, rehospitalization and other medical implications. Outpatient follow up as directed for continuity of care. Verbal and written discharge instructions will be provided to the patient. Condition Condition at Discharge: Stable Time Spent with Patient Time spent providing/coordinating discharge services (# min): 40 Diagnostic Studies Completed and Pending Studies Pending studies at discharge: 05/30/22 05:00 EKG [ECG 12 lead ECG] IN AM EKG [ECG 12 lead ECG] IN AM 05/31/22 05:00 EKG [ECG 12 lead ECG] IN AM EKG [ECG 12 lead ECG] IN AM 06/01/22 05:00 EKG [ECG 12 lead ECG] IN AM Labs on day of discharge: 05/29/22 06:42: PHA Creatinine Clear 74.62, Sodium 135 L, Potassium 3.4 L, Chloride 102, Carbon Dioxide 25.6, Anion Gap 10.8, BUN 10, Creatinine 0.59 L, Est GFR (CKD-EPI) > 60.0, Glucose 86, Calcium 7.7 L, Total Bilirubin 2.3 H, AST 32, ALT 60 H, Alkaline Phosphatase 179 H, Total Protein 5.4 L, Albumin 2.6 L, Globulin 2.8, Albumin/Globulin Ratio 0.9 05/29/22 06:42: Corrected WBC 7.7, Uncorrected WBC Count 7.7, RBC 4.29, Hgb 12.5L, Hct 37.8 L, MCV 88.1, MCH 29.1, MCHC 33.0, RDW 14.4, Plt Count 154, MPV 9.0, Neut % (Auto) 72.8, Lymph % (Auto) 11.0, Sumner % (Auto) 13.1, Eos % (Auto) 2.8, Baso % (Auto) 0.3, Nucleat RBC Rel Count 0.2, Neut # (Auto) 5.6, Lymph # (Auto) 0.8 L, Sumner # (Auto) 1.0 H, Eos # (Auto) 0.2, Baso # (Auto) 0.0 Exam Physical Exam Vital Signs: Temp Pulse Resp BP Pulse Ox O2 Del Method 98.3 F 61 17 122/79 96 Room Air 05/29/22 16:00 05/29/22 16:00 05/29/22 16:00 05/29/22 16:00 05/29/22 16:00 05/29/22 16:00 Narrative: Const General: cooperative, comfortable, in no acute distress HEENT Normal oropharyngeal mucosa without any ulcers or exudates Eyes: Conjunctiva normal Pulmonary Auscultation: clear to auscultation , no crackles, no wheezes Cardiovascular Rate: normal rate Rhythm: regular rhythm Heart Sounds: S1 normal, S2 normal and no murmurs GI Inspection: non-distended Palpation: soft, nontender. No rigidity or rebound. Deferred Neuro General: alert, awake and oriented x3. No obvious new focal deficit Musculoskeletal: normal range of motion Extrem General: no cyanosis, trace pedal edema Skin: no significant ulcers, no rash noted Psych Appearance: appropriate affect. Grossly normal Discharge Plan Discharge Plan Patient Disposition: Home Health [facility] Activity: No Activity Restriction Diet: Low-Sodium and Low-Cholesterol Comment: 1500 ml fluid restriction daily Additional Instructions: Home health to manage: -RN/PT/OT to eval and treat -Monitor VS per protocol -Fall precautions -Perform GI and cardiovascular assessments -Assist with medication management and education -1500 ml fluid restriction daily-- provide education Changes on his medications: -Stop Digoxin -Stop carvedilol -Sotalol new dose 60 mg twice daily -Continue blood thinner Eliquis 5 mg twice daily -Midodrine as needed for low BP if less than 90/60 -Will need to follow up with surgery clinic after discharge to discuss gallbladder removal -Follow up with the heart doctor -If you have any fever, chills, worsening abdominal pain, return to ER Instructions: Atrial Fibrillation (DC), Hiatal Hernia (DC), Gallstones (DC) Prescriptions: New Eliquis 5 mg Tablet 5 mg PO BID Qty: 90 0RF sotalol [Sotalol AF] 120 mg Tablet 60 mg PO BID Qty: 60 0RF Continued midodrine 5 mg tablet 5 mg PO TID.7A.12P.5P PRN (Reason: SBP <100) ascorbic acid (vitamin C) [Vitamin C] 500 mg tablet 500 mg PO DAILY pantoprazole 40 mg tablet,delayed release (DR/EC) 40 mg PO QPM Probiotic 3 billion cell Capsule atorvastatin 40 mg Tablet 40 mg PO DAILY Qty: 0 0RF aspirin 81 mg Tablet,Delayed Release (Dr/Ec) 81 mg PO DAILY Qty: 0 0RF hyoscyamine sulfate [Anaspaz] 0.125 mg Tablet,Disintegrating 0.125 mg PO QID PRN (Reason: Spasms) Qty: 0 0RF calcium carbonate 200 mg calcium (500 mg) Tablet,Chewable 250 mg PO BID Qty: 0 0RF finasteride 5 mg Tablet 5 mg PO QAM Qty: 0 0RF cholecalciferol (vitamin D3) 25 mcg (1,000 unit) Tablet 50 mcg PO QAM Qty: 0 0RF ferrous sulfate 324 mg (65 mg iron) Tablet,Delayed Release (Dr/Ec) 324 mg PO DAILY Qty: 0 0RF sennosides [Senna Lax] 8.6 mg Tablet 2 tab PO DAILY@12 PRN (Reason: If no BM in 2 days) Qty: 0 0RF acetaminophen 500 mg Tablet 500 mg PO Q4H PRN (Reason: Pain) Qty: 0 0RF tamsulosin 0.4 mg Capsule 0.4 mg PO QHS Qty: 0 0RF Discontinued cefdinir 300 mg capsule 300 mg PO DAILY sotalol [Sotalol AF] 120 mg tablet 120 mg PO BID carvedilol 3.125 mg tablet 3.125 mg PO DAILY PRN (Reason: SPB <140) digoxin 125 mcg (0.125 mg) Tablet 125 mcg PO QAM Qty: 0 0RF Other Ambulatory Orders: Initiate Home Health (Routine) Timeframe: 20220528 Location: Determined by Patient Ordered By: Anshu Jennings Follow Up: [facility] [Outside] (Call office on Tuesday to schedule follow-up with Cardioloy. ) Delvin Rodriguez MD [Active Staff] - 06/08/22 1:45 pm (Follow-up with General Surgery to discuss cholecystectomy) Aec Abbott MD [Primary Care Provider] - 06/07/22 3:15 pm (You have been scheduled for a follow up appointment for the following date and time, please call to reschedule if needed.) Documented By: Anshu Jennings MD 05/29/22 17 37 Signed By: <Electronically signed by Anshu Jennings MD> 05/29/22 1744 [facility] Work Phone: 1(414) 457-301004-22-2023 Progress note Author Farhan Sanchez [facility] May 29, 2022 5:32pm Note Date/Time May 29, 2022 4:3 9pm [facility] [address] [place] [address] Cardiology Progress Note Signed with Addenda Patient: Angella Pradhan MR#: [id number] : 1945 Acct:[id number] Age/Sex: 76 / M Adm Date: 3 Loc: Room: [address] [place] [address] Type: ADM IN Attending Dr: Anshu Jennings MD Copies to: ~ ADDENDUM1 From a cardiology standpoint the patient appears clinically stable and safe for discharge to home today with outpatient [facility] in the [facility] clinicwithin 3 weeks. Addendum Documented By: Farhan Sanchez MD 05/29/221730 Addendum Signed By: <Electronically signed by Farhan Sanchez MD> 05/29/221730 Date of Service: 05/29/2022 Subjective Principal diagnosis: Asymptomatic sinus bradycardia Interval history: No new complaint. Both bradycardia and prolonged QTc have improved since the discontinuation of digoxin. Exam Physical Exam Vital Signs: Temp Pulse Resp BP Pulse Ox O2 Del Method 98.3 F 61 17 122/79 96 Room Air 05/29/22 16:00 05/29/22 16:00 05/29/22 16:00 05/29/22 16:00 05/29/22 16:00 05/29/22 16:00 Objective Labs 05/29/22 06:42 05/29/22 06:42 Labs: Laboratory Results - last 24 hr 05/29/22 05/29/22 06:42 06:42 Corrected WBC 7.7 Uncorrected WBC Count 7.7 RBC 4.29 Hgb 12.5 L Hct 37.8 L MCV 88.1 MCH 29.1 MCHC 33.0 RDW 14.4 Plt Count 154 MPV 9.0 Neut % (Auto) 72.8 Lymph % (Auto) 11.0 Sumner % (Auto) 13.1 Eos % (Auto) 2.8 Baso % (Auto) 0.3 Nucleat RBC Rel Count 0.2 Neut # (Auto) 5.6 Lymph # (Auto) 0.8 L Sumner # (Auto) 1.0 H Eos # (Auto) 0.2 Baso # (Auto) 0.0 PHA Creatinine Clear 74.62 Sodium 135 L Potassium 3.4 L Chloride 102 Carbon Dioxide 25.6 Anion Gap 10.8 BUN 10 Creatinine 0.59 L Est GFR (CKD-EPI) > 60.0 Glucose 86 Calcium 7.7 L Total Bilirubin 2.3 H AST 32 ALT 60 H Alkaline Phosphatase 179 H Total Protein 5.4 L Albumin 2.6 L Globulin 2.8 Albumin/Globulin Ratio 0.9 A&P - Cardiology (1) Abdominal pain: Code(s): R10.9 - Unspecified abdominal pain Status: Acute Plan Assessment 1. Asymptomatic sinus bradycardia mainly during the night due to combination ofdigoxin and sotalol. 2. History of paroxysmal atrial fibrillation currently in normal sinus rhythm with first-degree degree AV block and borderline prolonged QTc interval 3. Coronary artery disease with PCI to the LAD and diagonal in 2020 with known occluded RCA 4. Hyperlipidemia 5. Hypertension 6. Abdominal pain with finding of large hiatal hernia and cholelithiasis Plan/recommendations: 1. No further digoxin. 2. Maintain sotalol 60 mg twice daily 3. Maintain apixaban 5 mg twice daily 4. Continue to monitor rhythm and QTc Time spent with patient Time Spent With Patient (min): 20 Documented By: Farhan Sanchez MD 05/29/224 Signed By: <Electronically signed by Farhan Sanchez MD> 05/29/22 1641 [facility] Work Phone: 1(311) 276-451804-22-2023 Progress note Author Anshu Jennings [facility] May 29, 2022 4:49pm Note Date/Time May 29, 2022 4:4 9pm [facility] [address] [place] [address] Hospitalist Progress Note Signed Patient: Angella Pradhan MR#: [id number] : 1945 Acct:[id number] Age/Sex: 76 / M Adm Date: 3 Loc: Room: [address] [place] [address] Type: ADM IN Attending Dr: Anshu Jennings MD Copies to: ~ Date of Service: 05/29/2022 Subjective Subjective Narrative: Patient was seen and examined at bedside. Remained afebrile. WBC WNL. Patient seems comfortable today. Denies abdominal pain. Tolerating oral diet and having BMs. He denies any abdominal pain last night after meal. His HR and vitals seemsbetter after adjustments of medications. Sotalol dose was reduced per cardiology, seems to tolerate well so far. Exam Physical Exam Vital Signs: Temp Pulse Resp BP Pulse Ox O2 Del Method 98.3 F 61 17 122/79 96 Room Air 05/29/22 16:00 05/29/22 16:00 05/29/22 16:00 05/29/22 16:00 05/29/22 16:00 05/29/22 16:00 Narrative: Const General: cooperative, comfortable, in no acute distress HEENT Normal oropharyngeal mucosa without any ulcers or exudates Eyes: Conjunctiva normal Pulmonary Auscultation: clear to auscultation , no crackles, no wheezes Cardiovascular Rate: normal rate Rhythm: regular rhythm Heart Sounds: S1 normal, S2 normal and no murmurs GI Inspection: non-distended Palpation: soft, nontender. No rigidity or rebound. Deferred Neuro General: alert, awake and oriented x3. No obvious new focal deficit Musculoskeletal: normal range of motion Extrem General: no cyanosis, trace pedal edema Skin: no significant ulcers, no rash noted Psych Appearance: appropriate affect. Grossly normal Objective Lab Results 05/29/22 06:42 05/29/22 06:42 Meds Allergies and Active Meds Allergies mirtazapine Allergy (Severe, Verified 05/25/22 06:39) serotonin syndrome Sulfa (Sulfonamide Antibiotics) Allergy (Verified 05/25/22 06:39) Rash Active Meds: Active Medications Generic Name Dose Route Start Last Admin Trade Name Freq PRN Reason Stop Dose Admin Acetaminophen 650 mg 05/26/22 17:26 05/27/22 19:45 Acetaminophen 325 Mg Tablet PO 05/25/23 11:10 650 mg Q8HR PRN Administration Pain Scale 1 - 3 or fever Apixaban 5 mg 05/29/22 09:00 05/29/22 10:10 Apixaban 5 Mg Tablet PO 05/29/23 08:59 5 mg BID EARLENE Administration Ascorbic Acid 500 mg 05/26/22 09:00 05/29/22 10:05 Ascorbic Acid 500 Mg Tablet PO 05/26/23 08:59 500 mg DAILY EARLENE Administration Aspirin 81 mg 05/25/22 12:30 05/29/22 10:05 Aspirin 81 Mg Tablet. PO 05/25/23 12:29 81 mg DAILY EARLENE Administration Atorvastatin Calcium 40 mg 05/26/22 21:00 05/28/22 21:40 Atorvastatin 40 Mg Tablet PO 05/26/23 20:59 40 mg QPM EARLENE Administration Calcium Carbonate 250 mg 05/25/22 21:00 05/29/22 10:04 Calcium Carbonate 500 Mg Tab.Chew PO 05/25/23 20:59 250 mg BID EARLENE Administration Cefdinir 300 mg 05/26/22 09:00 Cefdinir 300 Mg Capsule PO DAILY EARLENE Cefuroxime Axetil 500 mg 05/30/22 09:00 Cefuroxime Axetil 500 Mg Tablet PO BID EARLENE Docusate Sodium 100 mg 05/25/22 11:11 Docusate 100 Mg Capsule PO 05/25/23 11:10 BID PRN Constipation Ferrous Sulfate 324 mg 05/26/22 09:00 05/29/22 10:05 Ferrous Sulfate 324 Mg Tablet. PO 05/26/23 08:59 324 mg DAILY EARLENE Administration Finasteride 5 mg 05/26/22 09:00 05/29/22 10:08 Finasteride 5 Mg Tablet PO 05/26/23 08:59 5 mg QAM EARLENE Administration Metronidazole 500 mg 05/29/22 19:00 Metronidazole 500 Mg Tablet PO Q8H EARLENE Midodrine 5 mg 05/26/22 07:40 Midodrine 5 Mg Tablet PO 05/26/23 11:59 TID.7A.12P.5P PRN SBP<100 Morphine Sulfate 2 mg 05/25/22 11:11 05/27/22 10:27 Morphine Sulfate 2 Mg/Ml Vial IV-PUSH 2 mg Q4H PRN Administration Pain Scale 8 - 10 Pantoprazole Sodium 40 mg 05/25/22 11:30 05/29/22 10:05 Pantoprazole 40 Mg Vial IV-PUSH 05/25/23 11:29 40 mg DAILY EARLENE Administration Prochlorperazine Edisylate 5 mg 05/25/22 11:11 05/27/22 11:43 Prochlorperazine Edisylate 10 Mg/2 Ml Vial IV-PUSH 05/25/23 11:10 5 mg Q4H PRN Administration Nausea And Vomiting Sennosides 2 tab 05/25/22 12:00 Sennosides 8.6 Mg Tablet PO 05/25/23 11:59 DAILY@12 PRN If no BM in 2 days Sodium Chloride 0 ml 05/25/22 06:37 05/28/22 00:19 Sodium Chloride 0.9 % 10 Ml Syringe IV-PUSH 05/25/23 06:36 10 ml PRN PRN Administration Flush Sodium Chloride 10 ml 05/25/22 11:11 Sodium Chloride 0.9 % 10 Ml Syringe IV-PUSH 05/25/23 11:10 PRN PRN Flush Sodium Chloride 10 ml 05/25/22 11:11 05/26/22 09:27 Sodium Chloride 0.9 % 10 Ml Vial.Pf INJECTION 05/25/23 11:10 10 ml PRN PRN Administration Dilution Sotalol HCl 60 mg 05/29/22 09:00 05/29/22 10:02 Sotalol 120 Mg Tablet PO 05/29/23 08:59 60 mg BID EARLENE Administration Tamsulosin HCl 0.4 mg 05/25/22 22:00 05/28/22 21:40 Tamsulosin 0.4 Mg Cap.Er.24h PO 05/25/23 21:59 0.4 mg QHS EARLENE Administration Vitamin D 50 mcg 05/26/22 09:00 05/29/22 10:04 Cholecalciferol 25 Mcg (1,000 Units) Tablet PO 05/26/23 08:59 50 mcg QAM EARLENE Administration A&P - Hospitalist Assessment/Plan (1) Epigastric pain: (2) Cholelithiasis: (3) Bradycardia: Plan Suspected acute cholecystitis Cholelithiasis, choledocholithiasis was ruled out by MRCP Possibly GERD, has large hiatal hernia ACS was ruled out AAA was ruled out Digoxin toxicity ruled out (level 0.8) -Afebrile, WBC up to 10.7 -Trop neg x 3. -CT AP showed no acute pathology. Hiatal hernia (known), cholelithiasis -GB US obtained showed suspected acute cholecystitis -MRCP was done, report noted. -Bilirubin and LFTs still elevated -Continue empirically on Rocephin and Flagyl for intraabdominal coverage -General surgery input appreciated. No acute interventions warranted inpatient so far. Will need surgery follow up as outpatient for possible cholecystectomy down the road -GI was consulted- input appreciated. -Monitor for abdominal pain -Pain control as needed -Antiemetics as needed -Continue PPI Sinus Bradycardia Prolonged QTC Hx of Afib not on AC -Asymptomatic at this time -had bradycardia with prolonged QTc while on sotalol -Discontinued Coreg and Digoxin. Sotalol was adjusted per cardiology to 60 mg BID, seems tolerating well so far -Cardiology input noted and appreciated -Monitor on telemetry Physical debility Functional decline Advanced age Recent left hip surgery -PT/OT ordered Chronic conditions: CAD with PCI: continue aspirin and statin Afib: reduced sotalol, dc digoxin. After verified home meds, he is on Eliquis athome, restarted BPH: continue Flomax and Proscar Recent UTI: continue Rocephin for now Home medications restarted as appropriate Diet: healthy heart, fluid restriction DVT ppx: SCDs, Eliquis GI ppx: Protonix Code status: DNR CCA with intubation Disposition: Inpatient status Discussed with patient at bedside. All questions answered. In agreement with theabove plan Cardiology input appreciated. Will continue to maintain sotalol, if continues totolerate over the next 24 hours, will plan to maintain these changes and plan todischarge tomorrow am. Will need to follow up with general surgery outpatient for his gallbladder to discuss possible cholecystectomy Anshu Bullock MD Internal Medicine Hospitalist Attending Physician Documented By: Anshu Jennings MD 05/29/22 16 43 Signed By: <Electronically signed by Anshu Jennings MD> 05/29/22 9234 [facility] Work Phone: 1(455) 897-623104-21-2023 Progress note Author Delvin Rodriguez [facility] May 28, 2022 4:14pm Note Date/Time May 28, 2022 4:1 4pm [facility] [address] [place] [address] General Surgery Progress Note Signed Patient: Angella Pradhan MR#: [id number] : 1945 Acct:[id number] Age/Sex: 76 / M Adm Date: 3 Loc: 3T Room: [address] [place] [address] Type: ADM IN Attending Dr: Anshu Jennings MD Copies to: ~ Date of Service: 05/28/2022 Subjective Subjective HPI: Patient appears comfortable. He denies any epigastric discomfort or RUQ pain. Hehas been passing flatus and had a BM yesterday. He denies diarrhea, nausea, vomiting. He is tolerating a diet. Patient is to have an MRI to be performed today. This showed no choledocholithiasis. There was gallbladder sludge. Liver function tests are elevated.. Allergies & Medications Medications and Allergies Allergies mirtazapine Allergy (Severe, Verified 05/25/22 06:39) serotonin syndrome Sulfa (Sulfonamide Antibiotics) Allergy (Verified 05/25/22 06:39) Rash Home Medications acetaminophen 500 mg tablet 500 mg PO Q4H PRN Pain #0 tabs 04/02/22 [Rx Confirmed 05/25/22] aspirin 81 mg tablet,delayed release 81 mg PO DAILY #0 tabs 04/02/22 [Rx Confirmed 05/25/22] atorvastatin 40 mg tablet 40 mg PO DAILY #0 tabs 04/02/22 [Rx Confirmed 05/25/22] calcium carbonate 200 mg calcium (500 mg) chewable tablet 250 mg PO BID #0 tabs 04/02/22 [Rx Confirmed 05/25/22] cholecalciferol (vitamin D3) 25 mcg (1,000 unit) tablet 50 mcg PO QAM #0 tabs 04/02/22 [Rx Confirmed 05/25/22] digoxin 125 mcg (0.125 mg) tablet 125 mcg PO QAM #0 tabs 04/02/22 [Rx Confirmed 05/25/22] ferrous sulfate 324 mg (65 mg iron) tablet,delayed release 324 mg PO DAILY #0 tabs 04/02/22 [Rx Confirmed 05/25/22] finasteride 5 mg tablet 5 mg PO QAM #0 tabs 04/02/22 [Rx Confirmed 05/25/22] hyoscyamine sulfate 0.125 mg disintegrating tablet (Anaspaz) 0.125 mg PO QID PRNSpasms #0 tabs 04/02/22 [Rx Confirmed 05/25/22] sennosides 8.6 mg tablet (Senna Lax) 2 tab PO DAILY@12 PRN If no BM in 2 days #0tabs 04/02/22 [Rx Confirmed 05/25/22] tamsulosin 0.4 mg capsule 0.4 mg PO QHS #0 caps 04/02/22 [Rx Confirmed 05/25/22] ascorbic acid (vitamin C) 500 mg tablet (Vitamin C) 500 mg PO DAILY 05/25/22 [History Confirmed 05/25/22] carvedilol 3.125 mg tablet 3.125 mg PO DAILY PRN SPB <140 05/25/22 [History Confirmed 05/25/22] cefdinir 300 mg capsule 300 mg PO DAILY 05/25/22 [History Confirmed 05/25/22] lactobacillus combination no.4 3 billion cell capsule (Probiotic) 05/25/22 [History Confirmed 05/25/22] midodrine 5 mg tablet 5 mg PO TID.7A.12P.5P PRN SBP <100 05/25/22 [History Confirmed 05/25/22] pantoprazole 40 mg tablet,delayed release 40 mg PO QPM 05/25/22 [History Confirmed 05/25/22] sotalol 120 mg tablet (Sotalol AF) 120 mg PO BID 05/25/22 [History Confirmed 05/25/22] Active Medications Acetaminophen (Acetaminophen 325 Mg Tablet) 650 mg PO Q8HR PRN PRN Reason: Pain Scale 1 - 3 or fever Stop: 05/25/23 11:10 Last Admin: 05/27/22 19:45 Dose: 650 mg Ascorbic Acid (Ascorbic Acid 500 Mg Tablet) 500 mg PO DAILY [facility] Stop: 05/26/23 08:59 Last Admin: 05/28/22 09:08 Dose: Not Given Aspirin (Aspirin 81 Mg Tablet.) 81 mg PO DAILY [facility] Stop: 05/25/23 12:29 Last Admin: 05/28/22 09:08 Dose: Not Given Atorvastatin Calcium (Atorvastatin 40 Mg Tablet) 40 mg PO QPM [facility] Stop: 05/26/23 20:59 Last Admin: 05/27/22 22:03 Dose: 40 mg Calcium Carbonate (Calcium Carbonate 500 Mg Tab.Chew) 250 mg PO BID [facility] Stop: 05/25/23 20:59 Last Admin: 05/28/22 09:08 Dose: Not Given Cefdinir (Cefdinir 300 Mg Capsule) 300 mg PO DAILY [facility] Docusate Sodium (Docusate 100 Mg Capsule) 100 mg PO BID PRN PRN Reason: Constipation Stop: 05/25/23 11:10 Ferrous Sulfate (Ferrous Sulfate 324 Mg Tablet.Dr) 324 mg PO DAILY [facility] Stop: 05/26/23 08:59 Last Admin: 05/28/22 09:08 Dose: Not Given Finasteride (Finasteride 5 Mg Tablet) 5 mg PO QAM [facility] Stop: 05/26/23 08:59 Last Admin: 05/28/22 09:08 Dose: Not Given Heparin Sodium (Porcine) (Heparin 5,000 Unit/Ml Vial) 5,000 unit SUBCUT Q8HR [facility] Stop: 05/27/23 13:59 Last Admin: 05/28/22 13:05 Dose: 5,000 unit Metronidazole (Flagyl) 500 mg in 100 mls @ 100 mls/hr IV Q8H [facility] Last Admin: 05/28/22 07:48 Dose: Not Given Ceftriaxone Sodium (Rocephin) 2 gm in 50 mls @ 100 mls/hr IV Q24H [facility] Last Admin: 05/28/22 07:30 Dose: 100 mls/hr Midodrine (Midodrine 5 Mg Tablet) 5 mg PO TID.7A.12P.5P PRN PRN Reason: SBP<100 Stop: 05/26/23 11:59 Morphine Sulfate (Morphine Sulfate 2 Mg/Ml Vial) 2 mg IV-PUSH Q4H PRN PRN Reason: Pain Scale 8 - 10 Last Admin: 05/27/22 10:27 Dose: 2 mg Pantoprazole Sodium (Pantoprazole 40 Mg Vial) 40 mg IV-PUSH DAILY [facility] Stop: 05/25/23 11:29 Last Admin: 05/28/22 09:09 Dose: Not Given Prochlorperazine Edisylate (Prochlorperazine Edisylate 10 Mg/2 Ml Vial) 5 mg IV- PUSH Q4H PRN PRN Reason: Nausea And Vomiting Stop: 05/25/23 11:10 Last Admin: 05/27/22 11:43 Dose: 5 mg Sennosides (Sennosides 8.6 Mg Tablet) 2 tab PO DAILY@12 PRN PRN Reason: If no BM in 2 days Stop: 05/25/23 11:59 Sodium Chloride (Sodium Chloride 0.9 % 10 Ml Syringe) 0 ml IV-PUSH PRN PRN PRN Reason: Flush Stop: 05/25/23 06:36 Last Admin: 05/28/22 00:19 Dose: 10 ml Sodium Chloride (Sodium Chloride 0.9 % 10 Ml Syringe) 10 ml IV-PUSH PRN PRN PRN Reason: Flush Stop: 05/25/23 11:10 Sodium Chloride (Sodium Chloride 0.9 % 10 Ml Vial.Pf) 10 ml INJECTION PRN PRN PRN Reason: Dilution Stop: 05/25/23 11:10 Last Admin: 05/26/22 09:27 Dose: 10 ml Sotalol HCl (Sotalol 120 Mg Tablet) 60 mg PO BID [facility] Stop: 05/29/23 08:59 Tamsulosin HCl (Tamsulosin 0.4 Mg Cap.Er.24h) 0.4 mg PO QHS [facility] Stop: 05/25/23 21:59 Last Admin: 05/27/22 22:03 Dose: 0.4 mg Vitamin D (Cholecalciferol 25 Mcg (1,000 Units) Tablet) 50 mcg PO QAM [facility] Stop: 05/26/23 08:59 Last Admin: 05/28/22 09:08 Dose: Not Given Exam Physical Exam Vital Signs: Temp Pulse Resp BP Pulse Ox O2 Del Method 98.4 F 63 16 114/63 96 Room Air 05/28/22 12:00 05/28/22 12:00 05/28/22 12:00 05/28/22 12:00 05/28/22 12:00 05/28/22 12:00 Const General: cooperative and comfortable GI Inspection: non-distended Palpation: soft, no guarding and nontender Neuro General: patient alert and patient awake Objective Pain Assessment Generalized Medial Chest: Pain Description: Constant Pain Intensity: 6 Intake & Output 24 hour I&O: Intake & Output 05/28/22 05/28/22 05/28/22 07:59 15:59 23:59 Intake Total 300 / 300 600 / 900 Balance 300 / 300 600 / 900 Weight 78 kg Labs 05/28/22 06:26 05/28/22 06:26 Laboratory Results - Last 48 hrs. 05/28/22 06:26: PHA Creatinine Clear 74.79, Sodium 135 L, Potassium 3.6, Chloride 102, Carbon Dioxide 25.1, Anion Gap 11.5, BUN 10, Creatinine 0.65 L, Est GFR (CKD-EPI) > 60.0, Glucose 102 H, Calcium 7.8 L, Total Bilirubin 4.2 H, Direct Bilirubin 2.90 H, AST 47 H, ALT 89 H, Alkaline Phosphatase 171 H, Total Protein 5.5 L, Albumin 2.7 L, Globulin 2.8, Albumin/Globulin Ratio 1.0 05/28/22 06:26: Corrected WBC 9.3, Uncorrected WBC Count 9.3, RBC 4.42, Hgb 12.9L, Hct 39.1, MCV 88.4, MCH 29.3, MCHC 33.1, RDW 14.7, Plt Count 166, MPV 8.6, Neut % (Auto) 77.2, Lymph % (Auto) 8.0, Sumner % (Auto) 13.8, Eos % (Auto) 0.5, Baso % (Auto) 0.5, Nucleat RBC Rel Count 0.1, Neut # (Auto) 7.2, Lymph # (Auto) 0.7 L, Sumner # (Auto) 1.3 H, Eos # (Auto) 0.0, Baso # (Auto) 0.0 05/27/22 05:23: PHA Creatinine Clear 74.66, Sodium 135 L, Potassium 3.9, Chloride 102, Carbon Dioxide 26.6, Anion Gap 10.3, BUN 11, Creatinine 0.76, Est GFR (CKD- EPI) > 60.0, Glucose 106 H, Calcium 8.2 L, Total Bilirubin 3.8 H, Direct Bilirubin 2.30 H, AST 82 H, ALT 144 H, Alkaline Phosphatase 155 H, Total Protein 5.9 L, Albumin 3.0 L, Globulin 2.9, Albumin/Globulin Ratio 1.0 05/27/22 05:23: Corrected WBC 6.7, Uncorrected WBC Count 6.7, RBC 4.72, Hgb 13.8, Hct 42.4, MCV 89.9, MCH 29.2, MCHC 32.5, RDW 14.2, Plt Count 143 L, MPV 8.4, Neut % (Auto) 73.8, Lymph % (Auto) 9.4, Sumner % (Auto) 12.3, Eos % (Auto) 4.1, Baso % (Auto) 0.4, Nucleat RBC Rel Count 0.1, Neut # (Auto) 5.0, Lymph # (Auto) 0.6 L, Sumner # (Auto) 0.8, Eos # (Auto) 0.3, Baso # (Auto) 0.0, Platelet Estimate Decreased, Plt Morphology Comment Normal, RBC Morphology Normal 05/26/22 16:43: POC Glucose 115, POC Glucose Comment Glu2: cleaned meter A&P - General Surgery Assessment/Plan (1) Epigastric pain: Code(s): R10.13 - Epigastric pain Status: Acute (2) Cholelithiasis: Code(s): K80.20 - Calculus of gallbladder without cholecystitis without obstruction Status: Acute (3) Hiatal hernia: Code(s): K44.9 - Diaphragmatic hernia without obstruction or gangrene Status: Acute (4) Chronic anticoagulation: Code(s): Z79.01 - 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 The epigastric pain could be secondary to hiatal hernia supposed to gallbladder disease. Patient still recovering from recent hip surgery. He also is to see urology alie enlarged prostate. Patient also being treated for bradycardia. We will have the patient follow-up with me as an outpatient to discuss cholecystectomy. Documented By: Delvin Rodriguez MD 05/28/22 8810 Signed By: <Electronically signed by MD Delvin Rodriguez> 05/28/22 4521 [facility] Work Phone: 1([phone]) 499-782604-21-2023 Progress note Author Anshu Jennings [facility] May 28, 2022 3:52pm Note Date/Time May 28, 2022 3:5 2pm [facility] [address] [place], [place] [id number] Hospitalist Progress Note Signed Patient: Angella Pradhan MR#: [id number] : 1945 Acct:[id number] Age/Sex: 76 / M Adm Date: 3 Loc: Room: [address] [place] [address] Type: ADM IN Attending Dr: Anshu Jennings MD Copies to: ~ Date of Service: 05/28/2022 Subjective Subjective Narrative: Patient was seen and examined at bedside. Remained afebrile. WBC WNL. Patient seems comfortable today. Denies abdominal pain. Tolerating oral diet and having BMs. He said he did have abdominal pain last night after meal, he seems to have on and off pain, controlled with meds. Telemonitor reviewed showed bradycardia overnight, also noted to have prolonged QTc. No symptoms reported per patient. Exam Physical Exam Vital Signs: Temp Pulse Resp BP Pulse Ox O2 Del Method 98.4 F 63 16 114/63 96 Room Air 05/28/22 12:00 05/28/22 12:00 05/28/22 12:00 05/28/22 12:00 05/28/22 12:00 05/28/22 12:00 Narrative: Const General: cooperative, comfortable, in no acute distress HEENT Normal oropharyngeal mucosa without any ulcers or exudates Eyes: Conjunctiva normal Pulmonary Auscultation: clear to auscultation , no crackles, no wheezes Cardiovascular Rate: bradycardic Rhythm: regular rhythm Heart Sounds: S1 normal, S2 normal and no murmurs GI Inspection: non-distended Palpation: soft, nontender. No rigidity or rebound. Deferred Neuro General: alert, awake and oriented x3. No obvious new focal deficit Musculoskeletal: normal range of motion Extrem General: no cyanosis, trace pedal edema Skin: no significant ulcers, no rash noted Psych Appearance: appropriate affect. Grossly normal Objective Lab Results 05/28/22 06:26 05/28/22 06:26 Meds Allergies and Active Meds Allergies mirtazapine Allergy (Severe, Verified 05/25/22 06:39) serotonin syndrome Sulfa (Sulfonamide Antibiotics) Allergy (Verified 05/25/22 06:39) Rash Active Meds: Active Medications Generic Name Dose Route Start Last Admin Trade Name Freq PRN Reason Stop Dose Admin Acetaminophen 650 mg 05/26/22 17:26 05/27/22 19:45 Acetaminophen 325 Mg Tablet PO 05/25/23 11:10 650 mg Q8HR PRN Administration Pain Scale 1 - 3 or fever Ascorbic Acid 500 mg 05/26/22 09:00 05/28/22 09:08 Ascorbic Acid 500 Mg Tablet PO 05/26/23 08:59 Not Given DAILY [facility] Aspirin 81 mg 05/25/22 12:30 05/28/22 09:08 Aspirin 81 Mg Tablet. PO 05/25/23 12:29 Not Given DAILY [facility] Atorvastatin Calcium 40 mg 05/26/22 21:00 05/27/22 22:03 Atorvastatin 40 Mg Tablet PO 05/26/23 20:59 40 mg QPM [facility] Administration Calcium Carbonate 250 mg 05/25/22 21:00 05/28/22 09:08 Calcium Carbonate 500 Mg Tab.Chew PO 05/25/23 20:59 Not Given BID [facility] Cefdinir 300 mg 05/26/22 09:00 Cefdinir 300 Mg Capsule PO DAILY [facility] Docusate Sodium 100 mg 05/25/22 11:11 Docusate 100 Mg Capsule PO 05/25/23 11:10 BID PRN Constipation Ferrous Sulfate 324 mg 05/26/22 09:00 05/28/22 09:08 Ferrous Sulfate 324 Mg Tablet. PO 05/26/23 08:59 Not Given DAILY [facility] Finasteride 5 mg 05/26/22 09:00 05/28/22 09:08 Finasteride 5 Mg Tablet PO 05/26/23 08:59 Not Given QAM [facility] Heparin Sodium (Porcine) 5,000 unit 05/27/22 14:00 05/28/22 13:05 Heparin 5,000 Unit/Ml Vial SUBCUT 05/27/23 13:59 5,000 unit Q8HR [facility] Administration Metronidazole 500 mg in 100 mls @ 100 mls/hr 05/26/22 07:45 05/28/22 07:48 Flagyl IV Not Given Q8H [facility] Ceftriaxone Sodium 2 gm in 50 mls @ 100 mls/hr 05/26/22 08:30 05/28/22 07:30 Rocephin IV 100 mls/hr Q24H [facility] Administration Midodrine 5 mg 05/26/22 07:40 Midodrine 5 Mg Tablet PO 05/26/23 11:59 TID.7A.12P.5P PRN SBP<100 Morphine Sulfate 2 mg 05/25/22 11:11 05/27/22 10:27 Morphine Sulfate 2 Mg/Ml Vial IV-PUSH 2 mg Q4H PRN Administration Pain Scale 8 - 10 Pantoprazole Sodium 40 mg 05/25/22 11:30 05/28/22 09:09 Pantoprazole 40 Mg Vial IV-PUSH 05/25/23 11:29 Not Given DAILY [facility] Prochlorperazine Edisylate 5 mg 05/25/22 11:11 05/27/22 11:43 Prochlorperazine Edisylate 10 Mg/2 Ml Vial IV-PUSH 05/25/23 11:10 5 mg Q4H PRN Administration Nausea And Vomiting Sennosides 2 tab 05/25/22 12:00 Sennosides 8.6 Mg Tablet PO 05/25/23 11:59 DAILY@12 PRN If no BM in 2 days Sodium Chloride 0 ml 05/25/22 06:37 05/28/22 00:19 Sodium Chloride 0.9 % 10 Ml Syringe IV-PUSH 05/25/23 06:36 10 ml PRN PRN Administration Flush Sodium Chloride 10 ml 05/25/22 11:11 Sodium Chloride 0.9 % 10 Ml Syringe IV-PUSH 05/25/23 11:10 PRN PRN Flush Sodium Chloride 10 ml 05/25/22 11:11 05/26/22 09:27 Sodium Chloride 0.9 % 10 Ml Vial.Pf INJECTION 05/25/23 11:10 10 ml PRN PRN Administration Dilution Sotalol HCl 60 mg 05/29/22 09:00 Sotalol 120 Mg Tablet PO 05/29/23 08:59 BID [facility] Tamsulosin HCl 0.4 mg 05/25/22 22:00 05/27/22 22:03 Tamsulosin 0.4 Mg Cap.Er.24h PO 05/25/23 21:59 0.4 mg QHS [facility] Administration Vitamin D 50 mcg 05/26/22 09:00 05/28/22 09:08 Cholecalciferol 25 Mcg (1,000 Units) Tablet PO 05/26/23 08:59 [facility] [place] [facility] - Hospitalist Assessment/Plan (1) Epigastric pain: (2) Cholelithiasis: (3) Bradycardia: Plan Suspected acute cholecystitis Cholelithiasis, choledocholithiasis was ruled out by MRCP Possibly GERD, has large hiatal hernia ACS was ruled out AAA was ruled out Digoxin toxicity ruled out (level 0.8) -Afebrile, WBC up to 10.7 -Trop neg x 3. -CT AP showed no acute pathology. Hiatal hernia (known), cholelithiasis -GB US obtained showed suspected acute cholecystitis -MRCP was done, report noted. -Bilirubin and LFTs still elevated -Continue empirically on Rocephin and Flagyl for intraabdominal coverage -General surgery input appreciated. No acute interventions warranted inpatient so far. Will need surgery follow up as outpatient. -GI was consulted- input appreciated. -Monitor for abdominal pain -Pain control as needed -Antiemetics as needed -Continue PPI Sinus Bradycardia Prolonged QTC Hx of Afib not on AC -Asymptomatic at this time -Telemonitor reviewed. had bradycardia overnight again with prolonged QTc -Continue to hold Coreg and Digoxin. Sotalol was adjusted per cardiology -Cardiology input noted and appreciated -Monitor on telemetry Physical debility Functional decline Advanced age Recent left hip surgery -PT/OT ordered Chronic conditions: CAD with PCI: continue aspirin and statin Afib: hold sotalol, hold digoxin. Patient is not on AC at home BPH: continue Flomax and Proscar Recent UTI: continue Rocephin for now Home medications restarted as appropriate Diet: healthy heart, fluid restriction DVT ppx: SCDs, Heparin GI ppx: Protonix Code status: DNR CCA with intubation Disposition: Inpatient status Discussed with patient at bedside. All questions answered. In agreement with theabove plan Anshu Bullock MD Internal Medicine Hospitalist Attending Physician Documented By: Anshu Jennings MD 05/28/22 15 45 Signed By: <Electronically signed by Anshu Jennings MD> 05/28/22 9191 [facility] Work Phone: [phone]) 947-870404-21-2023 Progress note Author Pino Dunbar [facility] May 28, 2022 3:09pm Note Date/Time May 28, 2022 3:0 9pm [facility] [address] [place] [address] Cardiology Progress Note Signed Patient: Angella Pradhan MR#: [id number] : 1945 Acct:[id number] Age/Sex: 76 / M Adm Date: 3 Loc: 3T Room: [address] [place] [address] Type: ADM IN Attending Dr: Anshu Jennings MD Copies to: ~ Date of Service: 05/28/2022 Subjective Interval history: No complaint. Patient remains mildly bradycardic and QTc prolonged Exam Physical Exam Vital Signs: Temp Pulse Resp BP Pulse Ox O2 Del Method 98.4 F 63 16 114/63 96 Room Air 05/28/22 12:00 05/28/22 12:00 05/28/22 12:00 05/28/22 12:00 05/28/22 12:00 05/28/22 12:00 HEENT Head: atraumatic Mouth: oral mucosae normal Eyes General: appearance normal, both eyes and all related structures Pupils: PERRL Neck Neck: normal visual inspection, supple and no lymphadenopathy noted Neck mass: No Thyroid: thyroid normal Carotids: normal carotid upstroke Chest Chest palpation & inspection: normal inspection of the chest Cardio Palpation: normal PMI Rate: regular rate Rhythm: regular rhythm Heart Sounds: S1 normal and S2 normal Skin General: no rashes or lesions noted and dry skin Extrem General: full ROM, capillary refill normal and no clubbing, cyanosis or edema Objective Labs 05/28/22 06:26 05/28/22 06:26 Labs: Laboratory Results - last 24 hr 05/28/22 05/28/22 06:26 06:26 Corrected WBC 9.3 Uncorrected WBC Count 9.3 RBC 4.42 Hgb 12.9 L Hct 39.1 MCV 88.4 MCH 29.3 MCHC 33.1 RDW 14.7 Plt Count 166 MPV 8.6 Neut % (Auto) 77.2 Lymph % (Auto) 8.0 Sumner % (Auto) 13.8 Eos % (Auto) 0.5 Baso % (Auto) 0.5 Nucleat RBC Rel Count 0.1 Neut # (Auto) 7.2 Lymph # (Auto) 0.7 L Sumner # (Auto) 1.3 H Eos # (Auto) 0.0 Baso # (Auto) 0.0 PHA Creatinine Clear 74.79 Sodium 135 L Potassium 3.6 Chloride 102 Carbon Dioxide 25.1 Anion Gap 11.5 BUN 10 Creatinine 0.65 L Est GFR (CKD-EPI) > 60.0 Glucose 102 H Calcium 7.8 L Total Bilirubin 4.2 H Direct Bilirubin 2.90 H AST 47 H ALT 89 H Alkaline Phosphatase 171 H Total Protein 5.5 L Albumin 2.7 L Globulin 2.8 Albumin/Globulin Ratio 1.0 A&P - Cardiology (1) Abdominal pain: Code(s): R10.9 - Unspecified abdominal pain Status: Acute Plan Assessment 1. Asymptomatic sinus bradycardia mainly during the night due to combination ofdigoxin and sotalol. 2. History of paroxysmal atrial fibrillation currently in normal sinus rhythm with first-degree degree AV block and borderline prolonged QTc interval 3. Coronary artery disease with PCI to the LAD and diagonal in 2020 with known occluded RCA 4. Hyperlipidemia 5. Hypertension 6. Abdominal pain with finding of large hiatal hernia and cholelithiasis Plan 1. We will discontinue digoxin. I will hold sotalol for tonight and reduce it to 60 twice daily 2. Continue to monitor rhythm and QTc Documented By: Pino Dunbar MD 05/28/22 1503 Signed By: <Electronically signed by MD Pino Dunbar> 05/28/22 8125 [facility] Work Phone: 1(609) 106-751504-21-2023 Hospital Discharge instructionsAmbulatory Orders* Initiate Home Health Time Frame: 05/28/22, Location: Determined By Patient Additional Instructions Home health to manage: -RN/PT/OT to eval and treat -Monitor VS per protocol -Fall precautions -Perform GI and cardiovascular assessments -Assist with medication management and education -1500 ml fluid restriction daily-- provide education Changes on his medications: -Stop Digoxin -Stop carvedilol -Sotalol new dose 60 mg twice daily -Continue blood thinner Eliquis 5 mg twice daily -Midodrine as needed for low BP if less than 90/60 -Will need to follow up with surgery clinic after discharge to discuss gallbladder removal -Follow up with the heart doctor -If you have any fever, chills, worsening abdominal pain, return to [facility] Work Phone: [phone] 447-527004-21-2023 Consult note Author Jigar Church [facility] May 28, 2022 10:14am Note Date/Time May 27, 2022 3:4 9pm [facility] [address] [place] [address] Gastroenterology Consult Note Signed Patient: Angella Pradhan MR#: [id number] : 1945 Acct:[id number] Age/Sex: 76 / M Adm Date: 3 Loc: 3T Room: [address] [place] [address] Type: ADM IN Attending Dr: Anshu Jennings MD Copies to: MD Jigar Gonsalves MD Obaydah M Daromar, MD~ HPI Data of Consult Date of Consultation: 05/27/22 Requesting Physician: Anshu Jennings MD Consult Narrative History of present illness: Mr. Pradhan is a 76 year old male with coronary artery disease s/p multiple stents, atrial fibrillation on Eliquis, hypertension hyperlipidemia who presented with severe epigastric pain who gastroenterology was consulted for cholelithiasis and possible choledocholithiasis Patient presented with upper abdominal pain which lasted for 6 hours. he denied associated fever or chills. He denied melena hematochezia or hematemesis. Denied NSAID use. He reports taking aspirin 81 mg daily. Denied smoking alcohol or drugs. Patient received Dilaudid and morphine. He also received IV antibiotics. On myencounter this morning patient denied abdominal pain or any other complaints. CT showed large hiatal hernia and cholelithiasis. Ultrasound showed cholelithiasis with gallbladder wall thickening and small amount of pericholecystic fluid, CBD is 5.6 mm. Bilirubin is 3.8 AST is 82 ALT is 144 ALPis 155. cc:: CC: Anshu Jennings MD Review of Systems Review of Systems All other systems reviewed & are negative unless noted below or in HPI PMFSH Vaccinated for COVID-19?: Yes Medical History Afib Arthritis Arthritis BPH (benign prostatic hyperplasia) Coronary artery disease DJD (degenerative joint disease) Former smoker Full dentures GERD (gastroesophageal reflux disease) History of COVID-19 06/2021 Hyperlipidemia Hypotension borderline per NOHC - responds to Midodrine Myocardial infarct Right hip pain Seizure single episode 01/31/21 UTI (urinary tract infection) being treated currently Surgical History 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 History of cardiac catheterization Hx of carpal tunnel repair right Hx of hernia repair umbilical Stented coronary artery 4 stents Family History Father H/O heart artery stent Mother Medical history unknown Brother HTN (hypertension) CAD (coronary artery disease) Social History Smoking Status: Former smoker Tobacco Type: cigarettes Substance Use Type: None Social History Comments: assisted living at [facility] Medications and Allergies Allergies mirtazapine Allergy (Severe, Verified 05/25/22 06:39) serotonin syndrome Sulfa (Sulfonamide Antibiotics) Allergy (Verified 05/25/22 06:39) Rash Home Medications acetaminophen 500 mg tablet 500 mg PO Q4H PRN Pain #0 tabs 04/02/22 [Rx Confirmed 05/25/22] aspirin 81 mg tablet,delayed release 81 mg PO DAILY #0 tabs 04/02/22 [Rx Confirmed 05/25/22] atorvastatin 40 mg tablet 40 mg PO DAILY #0 tabs 04/02/22 [Rx Confirmed 05/25/22] calcium carbonate 200 mg calcium (500 mg) chewable tablet 250 mg PO BID #0 tabs 04/02/22 [Rx Confirmed 05/25/22] cholecalciferol (vitamin D3) 25 mcg (1,000 unit) tablet 50 mcg PO QAM #0 tabs 04/02/22 [Rx Confirmed 05/25/22] digoxin 125 mcg (0.125 mg) tablet 125 mcg PO QAM #0 tabs 04/02/22 [Rx Confirmed 05/25/22] ferrous sulfate 324 mg (65 mg iron) tablet,delayed release 324 mg PO DAILY #0 tabs 04/02/22 [Rx Confirmed 05/25/22] finasteride 5 mg tablet 5 mg PO QAM #0 tabs 04/02/22 [Rx Confirmed 05/25/22] hyoscyamine sulfate 0.125 mg disintegrating tablet (Anaspaz) 0.125 mg PO QID PRNSpasms #0 tabs 04/02/22 [Rx Confirmed 05/25/22] sennosides 8.6 mg tablet (Senna Lax) 2 tab PO DAILY@12 PRN If no BM in 2 days #0tabs 04/02/22 [Rx Confirmed 05/25/22] tamsulosin 0.4 mg capsule 0.4 mg PO QHS #0 caps 04/02/22 [Rx Confirmed 05/25/22] ascorbic acid (vitamin C) 500 mg tablet (Vitamin C) 500 mg PO DAILY 05/25/22 [History Confirmed 05/25/22] carvedilol 3.125 mg tablet 3.125 mg PO DAILY PRN SPB <140 05/25/22 [History Confirmed 05/25/22] cefdinir 300 mg capsule 300 mg PO DAILY 05/25/22 [History Confirmed 05/25/22] lactobacillus combination no.4 3 billion cell capsule (Probiotic) 05/25/22 [History Confirmed 05/25/22] midodrine 5 mg tablet 5 mg PO TID.7A.12P.5P PRN SBP <100 05/25/22 [History Confirmed 05/25/22] pantoprazole 40 mg tablet,delayed release 40 mg PO QPM 05/25/22 [History Confirmed 05/25/22] sotalol 120 mg tablet (Sotalol AF) 120 mg PO BID 05/25/22 [History Confirmed 05/25/22] Exam Physical Exam Vital Signs: Temp Pulse Resp BP Pulse Ox O2 Del Method 99.7 F H 72 16 131/72 95 Room Air 05/27/22 15:11 05/27/22 15:11 05/27/22 15:11 05/27/22 15:11 05/27/22 15:11 05/27/22 15:11 Narrative: General appearance: Pleasant, NAD Skin: No rashes or jaundice Eyes: Anicteric Oropharynx: MMM Neck: Supple Cardiac: No murmurs Lungs: CTA Abdomen: Soft, NT, ND, BS+. No HSM. Extremities: No edema. Neuro: Ox3. Results Labs Labs: Laboratory Results - last 24 hr 05/26/22 05/27/22 05/27/22 16:43 05:23 05:23 Corrected WBC 6.7 Uncorrected WBC Count 6.7 RBC 4.72 Hgb 13.8 Hct 42.4 MCV 89.9 MCH 29.2 MCHC 32.5 RDW 14.2 Plt Count 143 L MPV 8.4 Neut % (Auto) 73.8 Lymph % (Auto) 9.4 Sumner % (Auto) 12.3 Eos % (Auto) 4.1 Baso % (Auto) 0.4 Nucleat RBC Rel Count 0.1 Neut # (Auto) 5.0 Lymph # (Auto) 0.6 L Sumner # (Auto) 0.8 Eos # (Auto) 0.3 Baso # (Auto) 0.0 Platelet Estimate Decreased Plt Morphology Comment Normal RBC Morphology Normal PHA Creatinine Clear 74.66 Sodium 135 L Potassium 3.9 Chloride 102 Carbon Dioxide 26.6 Anion Gap 10.3 BUN 11 Creatinine 0.76 Est GFR (CKD-EPI) > 60.0 Glucose 106 H POC Glucose 115 POC Glucose Comment Glu2: cleaned meter Calcium 8.2 L Total Bilirubin 3.8 H Direct Bilirubin 2.30 H AST 82 H ALT 144 H Alkaline Phosphatase 155 H Total Protein 5.9 L Albumin 3.0 L Globulin 2.9 Albumin/Globulin Ratio 1.0 A&P - Gastroenterology Assessment/Plan (1) Epigastric pain: Code(s): R10.13 - Epigastric pain Status: Acute (2) Cholelithiasis: Code(s): K80.20 - Calculus of gallbladder without cholecystitis without obstruction Status: Acute (3) Elevated liver enzymes: Code(s): R74.8 - Abnormal levels of other serum enzymes Status: Acute (4) Jaundice: Code(s): R17 - Unspecified jaundice Status: Acute Plan Mr. Pradhan is a 76 year old male with coronary artery disease s/p multiple stents, atrial fibrillation on Eliquis, hypertension hyperlipidemia who presented with severe epigastric pain who gastroenterology was consulted for cholelithiasis and possible choledocholithiasis + abdominal pain, bilirubin: 3.8. no fever Patient received Dilaudid and morphine. He also received IV antibiotics. CT showed large hiatal hernia and cholelithiasis. Ultrasound showed cholelithiasis with gallbladder wall thickening and small amount of pericholecystic fluid, CBD is 5.6 mm. Bilirubin is 3.8 AST is 82 ALT is 144 ALPis 155. -Clinical scenario and laboratory and imaging findings are suggestive of acute cholecystitis. Patient probably improved symptomatically with IV pain medications and antibiotics. -Bilirubin is 3.8 which can be explained by acute cholecystitis. Ultrasound showed CBD of 5.6 mm. please arrange for MRCP to rule out choledocholithiasis -Follow-up surgery recommendations regarding timing of cholecystectomy Documented By: Jigar Church MD 05/27/22 1548 Signed By: <Electronically signed by Jigar Church MD> 05/28/22 1014 [facility] Work Phone: 1(478) 140-539204-20-2023 Progress note Author Delvin Rodriguez [facility] May 27, 2022 8:52pm Note Date/Time May 27, 2022 7:0 5am [facility] [address] [place] [address] General Surgery Progress Note Signed Patient: Angella Pradhan MR#: [id number] : 1945 Acct:[id number] Age/Sex: 76 / M Adm Date: 3 Loc: Room: [address] [place] [address] Type: ADM IN Attending Dr: Anshu Jennings MD Copies to: ~ Date of Service: 05/27/2022 Subjective Subjective HPI: Patient appears comfortable. He denies any epigastric discomfort or RUQ pain. Hehas been passing flatus and had a BM yesterday. He denies diarrhea, nausea, vomiting. He is tolerating a diet. He is concerned about having another episode of severe abdominal pain if he is sent home. Allergies & Medications Medications and Allergies Allergies mirtazapine Allergy (Severe, Verified 05/25/22 06:39) serotonin syndrome Sulfa (Sulfonamide Antibiotics) Allergy (Verified 05/25/22 06:39) Rash Home Medications acetaminophen 500 mg tablet 500 mg PO Q4H PRN Pain #0 tabs 04/02/22 [Rx Confirmed 05/25/22] aspirin 81 mg tablet,delayed release 81 mg PO DAILY #0 tabs 04/02/22 [Rx Confirmed 05/25/22] atorvastatin 40 mg tablet 40 mg PO DAILY #0 tabs 04/02/22 [Rx Confirmed 05/25/22] calcium carbonate 200 mg calcium (500 mg) chewable tablet 250 mg PO BID #0 tabs 04/02/22 [Rx Confirmed 05/25/22] cholecalciferol (vitamin D3) 25 mcg (1,000 unit) tablet 50 mcg PO QAM #0 tabs 04/02/22 [Rx Confirmed 05/25/22] digoxin 125 mcg (0.125 mg) tablet 125 mcg PO QAM #0 tabs 04/02/22 [Rx Confirmed 05/25/22] ferrous sulfate 324 mg (65 mg iron) tablet,delayed release 324 mg PO DAILY #0 tabs 04/02/22 [Rx Confirmed 05/25/22] finasteride 5 mg tablet 5 mg PO QAM #0 tabs 04/02/22 [Rx Confirmed 05/25/22] hyoscyamine sulfate 0.125 mg disintegrating tablet (Anaspaz) 0.125 mg PO QID PRNSpasms #0 tabs 04/02/22 [Rx Confirmed 05/25/22] sennosides 8.6 mg tablet (Senna Lax) 2 tab PO DAILY@12 PRN If no BM in 2 days #0tabs 04/02/22 [Rx Confirmed 05/25/22] tamsulosin 0.4 mg capsule 0.4 mg PO QHS #0 caps 04/02/22 [Rx Confirmed 05/25/22] ascorbic acid (vitamin C) 500 mg tablet (Vitamin C) 500 mg PO DAILY 05/25/22 [History Confirmed 05/25/22] carvedilol 3.125 mg tablet 3.125 mg PO DAILY PRN SPB <140 05/25/22 [History Confirmed 05/25/22] cefdinir 300 mg capsule 300 mg PO DAILY 05/25/22 [History Confirmed 05/25/22] lactobacillus combination no.4 3 billion cell capsule (Probiotic) 05/25/22 [History Confirmed 05/25/22] midodrine 5 mg tablet 5 mg PO TID.7A.12P.5P PRN SBP <100 05/25/22 [History Confirmed 05/25/22] pantoprazole 40 mg tablet,delayed release 40 mg PO QPM 05/25/22 [History Confirmed 05/25/22] sotalol 120 mg tablet (Sotalol AF) 120 mg PO BID 05/25/22 [History Confirmed 05/25/22] Active Medications Acetaminophen (Acetaminophen 325 Mg Tablet) 650 mg PO Q8HR PRN PRN Reason: Pain Scale 1 - 3 or fever Stop: 05/25/23 11:10 Ascorbic Acid (Ascorbic Acid 500 Mg Tablet) 500 mg PO DAILY [facility] Stop: 05/26/23 08:59 Last Admin: 05/26/22 09:23 Dose: 500 mg Aspirin (Aspirin 81 Mg Tablet.) 81 mg PO DAILY [facility] Stop: 05/25/23 12:29 Last Admin: 05/26/22 08:43 Dose: 81 mg Atorvastatin Calcium (Atorvastatin 40 Mg Tablet) 40 mg PO QPM [facility] Stop: 05/26/23 20:59 Last Admin: 05/26/22 21:35 Dose: 40 mg Calcium Carbonate (Calcium Carbonate 500 Mg Tab.Chew) 250 mg PO BID [facility] Stop: 05/25/23 20:59 Last Admin: 05/26/22 21:36 Dose: 250 mg Cefdinir (Cefdinir 300 Mg Capsule) 300 mg PO DAILY [facility] Digoxin (Digoxin 125 Mcg Tablet) 125 mcg PO QAM [facility] Stop: 05/25/23 12:29 Last Admin: 05/26/22 08:42 Dose: 125 mcg Docusate Sodium (Docusate 100 Mg Capsule) 100 mg PO BID PRN PRN Reason: Constipation Stop: 05/25/23 11:10 Ferrous Sulfate (Ferrous Sulfate 324 Mg Tablet.) 324 mg PO DAILY [facility] Stop: 05/26/23 08:59 Last Admin: 05/26/22 08:44 Dose: 324 mg Finasteride (Finasteride 5 Mg Tablet) 5 mg PO QAM [facility] Stop: 05/26/23 08:59 Last Admin: 05/26/22 08:46 Dose: 5 mg Metronidazole (Flagyl) 500 mg in 100 mls @ 100 mls/hr IV Q8H [facility] Last Infusion: 05/27/22 01:29 Dose: Infused Ceftriaxone Sodium (Rocephin) 2 gm in 50 mls @ 100 mls/hr IV Q24H [facility] Last Admin: 05/26/22 09:25 Dose: 100 mls/hr Midodrine (Midodrine 5 Mg Tablet) 5 mg PO TID.7A.12P.5P PRN PRN Reason: SBP<100 Stop: 04/18/24 11:59 Morphine Sulfate (Morphine Sulfate 2 Mg/Ml Vial) 2 mg IV-PUSH Q4H PRN PRN Reason: Pain Scale 8 - 10 Pantoprazole Sodium (Pantoprazole 40 Mg Vial) 40 mg IV-PUSH DAILY [facility] Stop: 05/25/23 11:29 Last Admin: 05/26/22 09:26 Dose: 40 mg Prochlorperazine Edisylate (Prochlorperazine Edisylate 10 Mg/2 Ml Vial) 5 mg IV- PUSH Q4H PRN PRN Reason: Nausea And Vomiting Stop: 05/25/23 11:10 Sennosides (Sennosides 8.6 Mg Tablet) 2 tab PO DAILY@12 PRN PRN Reason: If no BM in 2 days Stop: 05/25/23 11:59 Sodium Chloride (Sodium Chloride 0.9 % 10 Ml Syringe) 0 ml IV-PUSH PRN PRN PRN Reason: Flush Stop: 05/25/23 06:36 Last Admin: 05/27/22 00:27 Dose: 10 ml Sodium Chloride (Sodium Chloride 0.9 % 10 Ml Syringe) 10 ml IV-PUSH PRN PRN PRN Reason: Flush Stop: 05/25/23 11:10 Sodium Chloride (Sodium Chloride 0.9 % 10 Ml Vial.Pf) 10 ml INJECTION PRN PRN PRN Reason: Dilution Stop: 05/25/23 11:10 Last Admin: 05/26/22 09:27 Dose: 10 ml Sotalol HCl (Sotalol 120 Mg Tablet) 120 mg PO BID [facility] Stop: 05/25/23 20:59 Last Admin: 05/26/22 21:36 Dose: 120 mg Tamsulosin HCl (Tamsulosin 0.4 Mg Cap.Er.24h) 0.4 mg PO QHS [facility] Stop: 05/25/23 21:59 Last Admin: 05/26/22 21:36 Dose: 0.4 mg Vitamin D (Cholecalciferol 25 Mcg (1,000 Units) Tablet) 50 mcg PO QAM [facility] Stop: 05/26/23 08:59 Last Admin: 05/26/22 08:44 Dose: 50 mcg Exam Physical Exam Vital Signs: Temp Pulse Resp BP Pulse Ox O2 Del Method 98.1 F 50 L 18 110/70 98 Room Air 05/27/22 04:30 05/27/22 04:30 05/27/22 04:30 05/27/22 04:30 05/27/22 04:30 05/27/22 04:30 Const General: cooperative and comfortable Eyes Sclera: sclerae normal Resp Effort & Inspection: normal respiratory effort and able to speak in complete sentences Auscultation: clear to auscultation bilaterally Cardio Rate: regular rate Rhythm: regular rhythm GI Inspection: non-distended Palpation: soft, no guarding and nontender Auscultation: normal bowel sounds Neuro General: patient alert and patient awake Objective Pain Assessment Generalized Medial Chest: Pain Description: Acute and Pressure Pain Intensity: 3 Intake & Output 24 hour I&O: Intake & Output 05/26/22 05/26/22 05/27/22 15:59 23:59 07:59 Intake Total 980 / 1480 400 / 1480 250 / 250 Balance 980 / 1480 400 / 1480 250 / 250 Weight 77.7 kg Labs 05/27/22 05:23 05/26/22 06:23 Laboratory Results - Last 48 hrs. 05/27/22 05:23: Corrected WBC 6.7, Uncorrected WBC Count 6.7, RBC 4.72, Hgb 13.8, Hct 42.4, MCV 89.9, MCH 29.2, MCHC 32.5, RDW 14.2, Plt Count 143 L, MPV 8.4 05/26/22 16:43: POC Glucose 115, POC Glucose Comment Glu2: cleaned meter 05/26/22 06:23: Corrected WBC 10.7 H, Uncorrected WBC Count 10.7 H, RBC 4.45, Hgb 12.9 L, Hct 39.9, MCV 89.6, MCH 29.1, MCHC 32.4 L, RDW 14.2, Plt Count 159, MPV 8.3, Neut % (Auto) 76.3, Lymph % (Auto) 7.0, Sumner % (Auto) 13.4, Eos % (Auto) 2.8, Baso % (Auto) 0.5, Nucleat RBC Rel Count 0.0, Neut # (Auto) 8.2 H, Lymph # (Auto) 0.8 L, Sumner # (Auto) 1.4 H, Eos # (Auto) 0.3, Baso # (Auto) 0.1 05/26/22 06:23: PHA Creatinine Clear 67.00, Sodium 136, Potassium 3.8, Chloride 102, Carbon Dioxide 25.1, Anion Gap 12.7, BUN 12, Creatinine 0.82, Est GFR (CKD-EPI) > 60.0, Glucose 95, Calcium 8.0 L, Magnesium 2.1, Total Bilirubin 3.9 H, Direct Bilirubin 2.60 H, AST 138 H, ALT 180 H, Alkaline Phosphatase 127 H, TotalProtein 5.4 L, Albumin 2.9 L, Globulin 2.5, Albumin/Globulin Ratio 1.2 05/25/22 12:53: Troponin I High Sens 15.2 05/25/22 08:44: Troponin I High Sens 7.2 05/25/22 06:44: Digoxin 0.8 L 05/25/22 06:44: B-Natriuretic Peptide 94.0 05/25/22 06:44: Troponin I High Sens 7.6 05/25/22 06:44: PHA Creatinine Clear 80.38, Sodium 138, Potassium 4.1, Chloride 103, Carbon Dioxide 25.9, Anion Gap 13.2, BUN 10, Creatinine 0.67 L, Est GFR (CKD- EPI) > 60.0, Glucose 123 H, Calcium 8.1 L, Total Bilirubin 1.2 H, Direct Bilirubin 0.50 H, Indirect Bilirubin 0.7, AST 85 H, ALT 49, Alkaline [id number], Total Protein 6.3 L, Albumin 3.4 L, Globulin 2.9, Albumin/Globulin Ratio 1.2, Lipase 24.0 05/25/22 06:44: PT 17.0 H, INR 1.5, APTT 31.8 05/25/22 06:44: Corrected WBC 9.6, Uncorrected WBC Count 9.6, RBC 4.74, Hgb 13.9, Hct 42.2, MCV 89.0, MCH 29.4, MCHC 33.0, RDW 14.2, Plt Count 189, MPV 8.0,Neut % (Auto) 73.1, Lymph % (Auto) 15.0, Sumner % (Auto) 9.3, Eos % (Auto) 1.8, Baso % (Auto) 0.8, Nucleat RBC Rel Count 0.0, Neut # (Auto) 7.0, Lymph # (Auto) 1.4, Sumner # (Auto) 0.9 H, Eos # (Auto) 0.2, Baso # (Auto) 0.1, Monocyte Dist Width 19.35 A&P - General Surgery Assessment/Plan (1) Epigastric pain: Code(s): R10.13 - Epigastric pain Status: Acute (2) Cholelithiasis: Code(s): K80.20 - Calculus of gallbladder without cholecystitis without obstruction Status: Acute (3) Hiatal hernia: Code(s): K44.9 - Diaphragmatic hernia without obstruction or gangrene Status: Acute (4) Chronic anticoagulation: Code(s): Z79.01 - 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 The epigastric pain could be secondary to hiatal hernia supposed to gallbladder disease. Patient still recovering from recent hip surgery. He also is to see urology alie enlarged prostate. Liver function tests improved slightly. No surgery planned this admission unless abdominal symptoms worsen. Patient can follow-up with me following discharge to discuss possible cholecystectomy. Documented By: Delvin Rodriguez MD 05/27/22 0652 Signed By: <Electronically signed by MD Delvin Rodriguez> 05/27/222051 [facility] Work Phone: 1(956) 256-864704-20-2023 Consult note Author Pino Dunbar [facility] May 27, 2022 11:57am Note Date/Time May 27, 2022 11: 47am [facility] [address] [place] [address] Cardiology Consult Note Signed Patient: Angella Pradhan MR#: [id number] : 1945 Acct:[id number] Age/Sex: 76 / M Adm Date: 3 Loc: 3T Room: [address] [place] [address] Type: ADM IN Attending Dr: Anshu Jennings MD Copies to: MD Pino Gonsalves MD Obaydah M Daromar, MD~ Cardiology HPI History of Present Illness Consult Date: 05/27/22 Reason for Consult: Cardiac consultation requested for evaluation of asymptomatic bradycardia HPI: Mr. Pradhan is a 76 year old male with known history of coronary artery disease,persistent atrial fibrillation maintaining sinus rhythm with sotalol. Presentedto the hospital complaining of abdominal pain. Has been seen by the hospitalistservice and surgery. He was found to have large hiatal hernia and evidence of cholelithiasis. While in the hospital the patient was noted to be bradycardic. This appears to be asymptomatic and mainly nocturnal. Patient has been on chronic sotalol therapy and digoxin. Patient is known to have normal LV systolicfunction by echo. His cardiac catheterization done in 2020 showed occluded RCA underwent PCI to the LAD and diagonal. At the moment patient has no cardiac complaint. Reviewing medication profile the patient has been on digoxin, sotalol and low-dose Coreg. Review of Systems Review of Systems All other systems reviewed & are negative unless noted below or in HPI Constitutional Constitutional: Reports system reviewed and no additional complaints, except as documented Eyes Eyes: Reports system reviewed and no additional complaints, except as documented ENT Ears, Nose, Mouth, and Throat: Reports system reviewed and no additional complaints, except as documented Cardiovascular Cardiovascular: Reports system reviewed and no additional complaints, except as documented Respiratory Respiratory: Reports dyspnea on exertion Gastrointestinal Gastrointestinal: Reports abdominal pain Genitourinary Genitourinary: Reports system reviewed and no additional complaints, except as documented Musculoskeletal Musculoskeletal: Reports system reviewed and no additional complaints, except asdocumented Integumentary/Breasts Skin/Breast: Reports system reviewed and no additional complaints, except as documented Neurologic Neurologic: Reports system reviewed and no additional complaints, except as documented Psychiatric Psychiatric: Reports system reviewed and no additional complaints, except as documented Endocrine Endocrine: Reports system reviewed and no additional complaints, except as documented Allergic/Immunologic Allergic/Immunologic: Reports system reviewed and no additional complaints, except as documented PMFSH Vaccinated for COVID-19?: Yes Medical History Afib Arthritis Arthritis BPH (benign prostatic hyperplasia) Coronary artery disease DJD (degenerative joint disease) Former smoker Full dentures GERD (gastroesophageal reflux disease) History of COVID-19 06/2021 Hyperlipidemia Hypotension borderline per NOHC - responds to Midodrine Myocardial infarct Right hip pain Seizure single episode 01/31/21 UTI (urinary tract infection) being treated currently Surgical History 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 History of cardiac catheterization Hx of carpal tunnel repair right Hx of hernia repair umbilical Stented coronary artery 4 stents Family History Father H/O heart artery stent Mother Medical history unknown Brother HTN (hypertension) CAD (coronary artery disease) Social History Smoking Status: Former smoker Tobacco Type: cigarettes Substance Use Type: None Social History Comments: assisted living at [facility] Medications and Allergies Allergies mirtazapine Allergy (Severe, Verified 05/25/22 06:39) serotonin syndrome Sulfa (Sulfonamide Antibiotics) Allergy (Verified 05/25/22 06:39) Rash Home Medications acetaminophen 500 mg tablet 500 mg PO Q4H PRN Pain #0 tabs 04/02/22 [Rx Confirmed 05/25/22] aspirin 81 mg tablet,delayed release 81 mg PO DAILY #0 tabs 04/02/22 [Rx Confirmed 05/25/22] atorvastatin 40 mg tablet 40 mg PO DAILY #0 tabs 04/02/22 [Rx Confirmed 05/25/22] calcium carbonate 200 mg calcium (500 mg) chewable tablet 250 mg PO BID #0 tabs 04/02/22 [Rx Confirmed 05/25/22] cholecalciferol (vitamin D3) 25 mcg (1,000 unit) tablet 50 mcg PO QAM #0 tabs 04/02/22 [Rx Confirmed 05/25/22] digoxin 125 mcg (0.125 mg) tablet 125 mcg PO QAM #0 tabs 04/02/22 [Rx Confirmed 05/25/22] ferrous sulfate 324 mg (65 mg iron) tablet,delayed release 324 mg PO DAILY #0 tabs 04/02/22 [Rx Confirmed 05/25/22] finasteride 5 mg tablet 5 mg PO QAM #0 tabs 04/02/22 [Rx Confirmed 05/25/22] hyoscyamine sulfate 0.125 mg disintegrating tablet (Anaspaz) 0.125 mg PO QID PRNSpasms #0 tabs 04/02/22 [Rx Confirmed 05/25/22] sennosides 8.6 mg tablet (Senna Lax) 2 tab PO DAILY@12 PRN If no BM in 2 days #0tabs 04/02/22 [Rx Confirmed 05/25/22] tamsulosin 0.4 mg capsule 0.4 mg PO QHS #0 caps 04/02/22 [Rx Confirmed 05/25/22] ascorbic acid (vitamin C) 500 mg tablet (Vitamin C) 500 mg PO DAILY 05/25/22 [History Confirmed 05/25/22] carvedilol 3.125 mg tablet 3.125 mg PO DAILY PRN SPB <140 05/25/22 [History Confirmed 05/25/22] cefdinir 300 mg capsule 300 mg PO DAILY 05/25/22 [History Confirmed 05/25/22] lactobacillus combination no.4 3 billion cell capsule (Probiotic) 05/25/22 [History Confirmed 05/25/22] midodrine 5 mg tablet 5 mg PO TID.7A.12P.5P PRN SBP <100 05/25/22 [History Confirmed 05/25/22] pantoprazole 40 mg tablet,delayed release 40 mg PO QPM 05/25/22 [History Confirmed 05/25/22] sotalol 120 mg tablet (Sotalol AF) 120 mg PO BID 05/25/22 [History Confirmed 05/25/22] Exam Physical Exam Vital Signs: Temp Pulse Resp BP Pulse Ox O2 Del Method 98.7 F 59 L 14 117/64 95 Room Air 05/27/22 11:29 05/27/22 11:29 05/27/22 11:29 05/27/22 11:29 05/27/22 11:29 05/27/22 11:29 Const General: cooperative, comfortable, no acute distress and well developed HEENT Head: atraumatic Mouth: oral mucosae normal Eyes General: appearance normal, both eyes and all related structures Pupils: PERRL Neck Neck: normal visual inspection, supple and no lymphadenopathy noted Neck mass: No Thyroid: thyroid normal Carotids: normal carotid upstroke Chest Chest palpation & inspection: normal inspection of the chest Resp Effort & Inspection: normal respiratory effort Auscultation: clear to auscultation bilaterally Cardio Palpation: normal PMI Rate: regular rate Rhythm: regular rhythm Heart Sounds: S1 normal and S2 normal GI Palpation: soft and no hepatosplenomegaly Percussion: normal to percussion Auscultation: normal bowel sounds Skin General: no rashes or lesions noted and dry skin Neuro General: patient alert, patient awake, patient oriented x3, tone normal and moves all extremities Extrem General: full ROM, capillary refill normal and no clubbing, cyanosis or edema Psych Mental Status: mental status grossly normal Results Labs 05/27/22 05:23 05/27/22 05:23 Lab results: Cardiac Enzymes 05/27/22 Range/Units 05:23 AST 82 H (13-39) U/L CBC 05/27/22 Range/Units 05:23 RBC 4.72 (3.90-5.60) X10E6/uL Hgb 13.8 (13.0-17.0) g/dL Hct 42.4 (38.8-50.0) % Plt Count 143 L (150-450) x10E3/uL Neut # (Auto) 5.0 (1.8-7.7) x10E3/uL Lymph # (Auto) 0.6 L (1.00-4.8) x10E3/uL Sumner # (Auto) 0.8 (0.0-0.8) x10E3/uL Eos # (Auto) 0.3 (0.0-0.45) x10E3/uL Baso # (Auto) 0.0 (0.0-0.2) x10E3/uL Comprehensive Metabolic Panel 05/27/22 Range/Units 05:23 Sodium 135 L (136-145) mmol/L Potassium 3.9 (3.5-5.1) mmol/L Chloride 102 (98-107) mmol/L Carbon Dioxide 26.6 (21.0-31.0) mmol/L BUN 11 (7-25) mg/dL Creatinine 0.76 (0.70-1.30) mg/dL Glucose 106 H (70-100) mg/dL Calcium 8.2 L (8.6-10.3) mg/dL Direct Bilirubin 2.30 H (0.03-0.18) mg/dL AST 82 H (13-39) U/L ALT 144 H (7-52) U/L Alkaline Phosphatase 155 H (34-104) U/L Total Protein 5.9 L (6.4-8.9) gm/dL Albumin 3.0 L (3.5-5.7) gm/dL Intake and Output 05/26/22 05/27/22 05/27/22 23:59 07:59 15:59 Intake Total 400 / 1530 250 / 250 Balance 400 / 1530 250 / 250 Intake: IV 100 / 250 100 / 100 metroNIDAZOLE 500MG-*NS* 500 mg 100 / 200 100 / 100 In 100 ml @ 100 mls/hr IV Q8H [facility] Rx#:[id number] Oral 300 / 1280 150 / 150 Other: # Unmeasured Voids 3 3 # Bowel Movements 1 Weight 77.7 kg Date of Last Bowel Movement 05/26/22 05/26/22 Patient Weight 05/27/22 23:59 Weight 77.7 kg Lab 05/25/22 06:44 PT 17.0 H INR 1.5 APTT 31.8 EKG Interpretations EKG Attestation EKG: I reviewed this ECG and interpreted as documented below: (Normal sinus rhythm with first-degree AV block. QTc intervals 470 ms. During the night episode of bradycardia with heart rate in the lower 40s over the) A&P - Cardiology (1) Abdominal pain: Code(s): R10.9 - Unspecified abdominal pain Plan Assessment 1. Asymptomatic sinus bradycardia mainly during the night due to combination ofdigoxin and sotalol 2. History of paroxysmal atrial fibrillation currently in normal sinus rhythm with first-degree degree AV block and borderline prolonged QTc interval 3. Coronary artery disease with PCI to the LAD and diagonal in 2020 with known occluded RCA 4. Hyperlipidemia 5. Hypertension 6. Abdominal pain with finding of large hiatal hernia and cholelithiasis Plan 1. We will discontinue digoxin 2. We will reduce sotalol to 80 mg twice daily 3. Continue to monitor rhythm and QTc Documented By: Pino Dunbar MD 05/27/22 1138 Signed By: <Electronically signed by MD Pino Dunbar> 05/27/22 7218 [facility] Work Phone: 1(658) 517-833904-20-2023 Progress note Author Anshu Jennings [facility] May 27, 2022 11:20am Note Date/Time May 27, 2022 11: 10am [facility] [address] [place] [address] Hospitalist Progress Note Signed Patient: Angella Pradhan MR#: [id number] : 1945 Acct:[id number] Age/Sex: 76 / M Adm Date: 3 Loc: 3T Room: [address] [place] [address] Type: ADM IN Attending Dr: Anshu Jennings MD Copies to: ~ Date of Service: 05/27/2022 Subjective Subjective Narrative: Patient was seen and examined at bedside. Remained afebrile. WBC down to 6.7. Patient seems comfortable today. Denies abdominal pain. Tolerating oral diet andhaving BMs. Telemonitor reviewed showed bradycardia with HR 30-40s. No symptoms reported. Exam Physical Exam Vital Signs: Temp Pulse Resp BP Pulse Ox O2 Del Method 98.7 F 57 L 16 109/66 95 Room Air 05/27/22 08:00 05/27/22 08:00 05/27/22 08:00 05/27/22 08:00 05/27/22 08:00 05/27/22 08:00 Narrative: Const General: cooperative, comfortable, in no acute distress HEENT Normal oropharyngeal mucosa without any ulcers or exudates Eyes: Conjunctiva normal Pulmonary Auscultation: clear to auscultation , no crackles, no wheezes Cardiovascular Rate: bradycardic Rhythm: regular rhythm Heart Sounds: S1 normal, S2 normal and no murmurs GI Inspection: non-distended Palpation: soft, nontender. No rigidity or rebound. (received pain meds in ER) Deferred Neuro General: alert, awake and oriented x3. No obvious new focal deficit Musculoskeletal: normal range of motion Extrem General: no cyanosis, trace pedal edema Skin: no significant ulcers, no rash noted Psych Appearance: appropriate affect. Grossly normal Objective Lab Results 05/27/22 05:23 05/27/22 05:23 Meds Allergies and Active Meds Allergies mirtazapine Allergy (Severe, Verified 05/25/22 06:39) serotonin syndrome Sulfa (Sulfonamide Antibiotics) Allergy (Verified 05/25/22 06:39) Rash Active Meds: Active Medications Generic Name Dose Route Start Last Admin Trade Name Freq PRN Reason Stop Dose Admin Acetaminophen 650 mg 05/26/22 17:26 Acetaminophen 325 Mg Tablet PO 05/25/23 11:10 Q8HR PRN Pain Scale 1 - 3 or fever Ascorbic Acid 500 mg 05/26/22 09:00 05/27/22 09:29 Ascorbic Acid 500 Mg Tablet PO 05/26/23 08:59 500 mg DAILY EARLENE Administration Aspirin 81 mg 05/25/22 12:30 05/27/22 09:29 Aspirin 81 Mg Tablet.Dr GALINDO 05/25/23 12:29 81 mg DAILY EARLENE Administration Atorvastatin Calcium 40 mg 05/26/22 21:00 05/26/22 21:35 Atorvastatin 40 Mg Tablet PO 05/26/23 20:59 40 mg QPM EARLENE Administration Calcium Carbonate 250 mg 05/25/22 21:00 05/27/22 09:29 Calcium Carbonate 500 Mg Tab.Chew PO 05/25/23 20:59 250 mg BID EARLENE Administration Cefdinir 300 mg 05/26/22 09:00 Cefdinir 300 Mg Capsule PO DAILY [facility] Digoxin 125 mcg 05/25/22 12:30 05/26/22 08:42 Digoxin 125 Mcg Tablet PO 05/25/23 12:29 125 mcg QAM EARLENE Administration Docusate Sodium 100 mg 05/25/22 11:11 Docusate 100 Mg Capsule PO 05/25/23 11:10 BID PRN Constipation Ferrous Sulfate 324 mg 05/26/22 09:00 05/27/22 09:30 Ferrous Sulfate 324 Mg Tablet. PO 05/26/23 08:59 324 mg DAILY EARLENE Administration Finasteride 5 mg 05/26/22 09:00 05/27/22 09:35 Finasteride 5 Mg Tablet PO 05/26/23 08:59 5 mg QAM EARLENE Administration Metronidazole 500 mg in 100 mls @ 100 mls/hr 05/26/22 07:45 05/27/22 09:30 Flagyl IV 100 mls/hr Q8H [facility] Administration Ceftriaxone Sodium 2 gm in 50 mls @ 100 mls/hr 05/26/22 08:30 05/27/22 09:27 Rocephin IV 100 mls/hr Q24H [facility]AR[facility]E Administration Midodrine 5 mg 05/26/22 07:40 Midodrine 5 Mg Tablet PO 05/26/23 11:59 TID.7A.12P.5P PRN SBP<100 Morphine Sulfate 2 mg 05/25/22 11:11 05/27/22 10:27 Morphine Sulfate 2 Mg/Ml Vial IV-PUSH 2 mg Q4H PRN Administration Pain Scale 8 - 10 Pantoprazole Sodium 40 mg 05/25/22 11:30 05/27/22 09:30 Pantoprazole 40 Mg Vial IV-PUSH 05/25/23 11:29 40 mg DAILY EARLENE Administration Prochlorperazine Edisylate 5 mg 05/25/22 11:11 Prochlorperazine Edisylate 10 Mg/2 Ml Vial IV-PUSH 05/25/23 11:10 Q4H PRN Nausea And Vomiting Sennosides 2 tab 05/25/22 12:00 Sennosides 8.6 Mg Tablet PO 05/25/23 11:59 DAILY@12 PRN If no BM in 2 days Sodium Chloride 0 ml 05/25/22 06:37 05/27/22 00:27 Sodium Chloride 0.9 % 10 Ml Syringe IV-PUSH 05/25/23 06:36 10 ml PRN PRN Administration Flush Sodium Chloride 10 ml 05/25/22 11:11 Sodium Chloride 0.9 % 10 Ml Syringe IV-PUSH 05/25/23 11:10 PRN PRN Flush Sodium Chloride 10 ml 05/25/22 11:11 05/26/22 09:27 Sodium Chloride 0.9 % 10 Ml Vial.Pf INJECTION 05/25/23 11:10 10 ml PRN PRN Administration Dilution Sotalol HCl 120 mg 05/25/22 21:00 05/26/22 21:36 Sotalol 120 Mg Tablet PO 05/25/23 20:59 120 mg BID EARLENE Administration Tamsulosin HCl 0.4 mg 05/25/22 22:00 05/26/22 21:36 Tamsulosin 0.4 Mg Cap.Er.24h PO 05/25/23 21:59 0.4 mg QHS EARLENE Administration Vitamin D 50 mcg 05/26/22 09:00 05/27/22 09:29 Cholecalciferol 25 Mcg (1,000 Units) Tablet PO 05/26/23 08:59 50 mcg QAM EARLENE Administration A&P - Hospitalist Assessment/Plan (1) Epigastric pain: (2) Cholelithiasis: (3) Bradycardia: Plan Suspected acute cholecystitis Cholelithiasis, concern for choledocholithiasis, risk of cholangitis Possibly GERD ACS was ruled out AAA was ruled out Digoxin toxicity ruled out (level 0.8) -Afebrile, WBC up to 10.7 -Trop neg x 3. -CT AP showed no acute pathology. Hiatal hernia (known), cholelithiasis -GB US obtained showed suspected acute cholecystitis -Bilirubin and LFTs slightly downtrending but still elevated -Started empirically on Rocephin and Flagyl for intraabdominal coverage -General surgery input appreciated. No acute interventions warranted at this time. Will need surgery follow up as outpatient. -Monitor for abdominal pain -Pain control as needed -Antiemetics as needed -Continue PPI Sinus Bradycardia Hx of Afib not on AC -Asymptomatic at this time -Telemonitor reviewed. had bradycardia overnight HR 30-40s. -Continue to hold Coreg and Digoxin. Sotalol was held today -Cardiology consult for medications reconciliation given bradycardia -Monitor on telemetry Physical debility Functional decline Advanced age Recent left hip surgery -PT/OT ordered Chronic conditions: CAD with PCI: continue aspirin and statin Afib: hold sotalol, hold digoxin. Patient is not on AC at home BPH: continue Flomax and Proscar Recent UTI: continue Rocephin for now Home medications restarted as appropriate Diet: healthy heart, fluid restriction DVT ppx: SCDs, Heparin GI ppx: Protonix Code status: DNR CCA with intubation Disposition: Inpatient status Discussed with patient at bedside. All questions answered. In agreement with theabove plan Anshu Bullock MD Internal Medicine Hospitalist Attending Physician Documented By: Anshu Jennings MD 05/27/22 11 10 Signed By: <Electronically signed by Anshu Jennings MD> 05/27/[address] [place] [address] Ctr Work Phone: [phone] Consult note Author Delvin Rodriguez [facility] May 26, 2022 3:51pm Note Date/Time May 26, 2022 8:5 9am [facility] [address] [place] [address] General Surgery Consult Note Signed Patient: Angella Pradhan MR#: [id number] : 1945 Acct:[id number] Age/Sex: 76 / M Adm Date: 3 Loc: Room: [address] [place] [address] Type: ADM IN Attending Dr: Anshu Jennings MD Copies to: MD Ace Soares MD Obaydah M Daromar, MD~ History of Present Illness Date of consult: 05/26/2022 Requesting/Attending Provider: Anshu Jennings MD History of present illness: Angella Pradhan is a 76 yo M who presents to ED with epigastric pain. On 05/25/22 he took several medications, he was unsure if they were correct. He wokeup with epigastric pain and called EMS who reported patient to be bradycardic and unable to obtain blood pressure. He was admitted to floor for cardiac monitoring. He was found to have elevated LFTs and Bili, and abdominal CT scan and gallbladder US shows cholelithiasis. CT scan also shows a large hiatal hernia. Today patient reports no abdominal pain, he denies nausea, vomiting, fever. Patient had bowel movement today. He has been passing flatus. Patient's past medical history includes CAD with multiple stents, Atrial fibrillation, hyperlipidemia. His surgical history includes b/l total hip replacements, and 4 cardiac stents. He denies family history of colon cancer. Patient is on Eliquis. Review of Systems Constitutional Constitutional: Denies fever(s) and Denies weight loss Cardiovascular Cardiovascular: Denies chest pain and Denies dyspnea Respiratory Respiratory: Denies cough, Denies pain on inspiration and Denies wheezing Gastrointestinal Gastrointestinal: Denies abdominal pain, Denies change in stool character, Denies cramping, Denies hematochezia, Denies loose stools, Denies nausea and Denies vomiting Genitourinary Genitourinary: Denies difficulty urinating and Denies urinary frequency PMFSH Vaccinated for COVID-19?: Yes Medical History Afib Arthritis Arthritis BPH (benign prostatic hyperplasia) Coronary artery disease DJD (degenerative joint disease) Former smoker Full dentures GERD (gastroesophageal reflux disease) History of COVID-19 06/2021 Hyperlipidemia Hypotension borderline per NOHC - responds to Midodrine Myocardial infarct Right hip pain Seizure single episode 01/31/21 UTI (urinary tract infection) being treated currently Surgical History 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 History of cardiac catheterization Hx of carpal tunnel repair right Hx of hernia repair umbilical Stented coronary artery 4 stents Family History Father H/O heart artery stent Mother Medical history unknown Brother HTN (hypertension) CAD (coronary artery disease) Social History Smoking Status: Former smoker Tobacco Type: cigarettes Substance Use Type: None Social History Comments: assisted living at [facility] Allergies & Medications Medications and Allergies Allergies mirtazapine Allergy (Severe, Verified 05/25/22 06:39) serotonin syndrome Sulfa (Sulfonamide Antibiotics) Allergy (Verified 05/25/22 06:39) Rash Home Medications acetaminophen 500 mg tablet 500 mg PO Q4H PRN Pain #0 tabs 04/02/22 [Rx Confirmed 05/25/22] aspirin 81 mg tablet,delayed release 81 mg PO DAILY #0 tabs 04/02/22 [Rx Confirmed 05/25/22] atorvastatin 40 mg tablet 40 mg PO DAILY #0 tabs 04/02/22 [Rx Confirmed 05/25/22] calcium carbonate 200 mg calcium (500 mg) chewable tablet 250 mg PO BID #0 tabs 04/02/22 [Rx Confirmed 05/25/22] cholecalciferol (vitamin D3) 25 mcg (1,000 unit) tablet 50 mcg PO QAM #0 tabs 04/02/22 [Rx Confirmed 05/25/22] digoxin 125 mcg (0.125 mg) tablet 125 mcg PO QAM #0 tabs 04/02/22 [Rx Confirmed 05/25/22] ferrous sulfate 324 mg (65 mg iron) tablet,delayed release 324 mg PO DAILY #0 tabs 04/02/22 [Rx Confirmed 05/25/22] finasteride 5 mg tablet 5 mg PO QAM #0 tabs 04/02/22 [Rx Confirmed 05/25/22] hyoscyamine sulfate 0.125 mg disintegrating tablet (Anaspaz) 0.125 mg PO QID PRNSpasms #0 tabs 04/02/22 [Rx Confirmed 05/25/22] sennosides 8.6 mg tablet (Senna Lax) 2 tab PO DAILY@12 PRN If no BM in 2 days #0tabs 04/02/22 [Rx Confirmed 05/25/22] tamsulosin 0.4 mg capsule 0.4 mg PO QHS #0 caps 04/02/22 [Rx Confirmed 05/25/22] ascorbic acid (vitamin C) 500 mg tablet (Vitamin C) 500 mg PO DAILY 05/25/22 [History Confirmed 05/25/22] carvedilol 3.125 mg tablet 3.125 mg PO DAILY PRN SPB <140 05/25/22 [History Confirmed 05/25/22] cefdinir 300 mg capsule 300 mg PO DAILY 05/25/22 [History Confirmed 05/25/22] lactobacillus combination no.4 3 billion cell capsule (Probiotic) 05/25/22 [History Confirmed 05/25/22] midodrine 5 mg tablet 5 mg PO TID.7A.12P.5P PRN SBP <100 05/25/22 [History Confirmed 05/25/22] pantoprazole 40 mg tablet,delayed release 40 mg PO QPM 05/25/22 [History Confirmed 05/25/22] sotalol 120 mg tablet (Sotalol AF) 120 mg PO BID 05/25/22 [History Confirmed 05/25/22] Active Medications Acetaminophen (Acetaminophen 325 Mg Tablet) 650 mg PO Q6HR PRN PRN Reason: Pain Scale 1 - 3 or fever Stop: 05/25/23 11:10 Apixaban (Apixaban 5 Mg Tablet) 5 mg PO BID [facility] Stop: 05/25/23 20:59 Ascorbic Acid (Ascorbic Acid 500 Mg Tablet) 500 mg PO DAILY [facility] Stop: 05/26/23 08:59 Aspirin (Aspirin 81 Mg Tablet.) 81 mg PO DAILY EARLENE Stop: 05/25/23 12:29 Last Admin: 05/26/22 08:43 Dose: 81 mg Atorvastatin Calcium (Atorvastatin 40 Mg Tablet) 40 mg PO QPM [facility] Stop: 05/26/23 20:59 Calcium Carbonate (Calcium Carbonate 500 Mg Tab.Chew) 250 mg PO BID [facility] Stop: 05/25/23 20:59 Last Admin: 05/26/22 08:42 Dose: 250 mg Cefdinir (Cefdinir 300 Mg Capsule) 300 mg PO DAILY [facility] Digoxin (Digoxin 125 Mcg Tablet) 125 mcg PO QAM EARLENE Stop: 05/25/23 12:29 Last Admin: 05/26/22 08:42 Dose: 125 mcg Docusate Sodium (Docusate 100 Mg Capsule) 100 mg PO BID PRN PRN Reason: Constipation Stop: 05/25/23 11:10 Ferrous Sulfate (Ferrous Sulfate 324 Mg Tablet.Dr) 324 mg PO DAILY [facility] Stop: 05/26/23 08:59 Last Admin: 05/26/22 08:44 Dose: 324 mg Finasteride (Finasteride 5 Mg Tablet) 5 mg PO QAM [facility] Stop: 05/26/23 08:59 Last Admin: 05/26/22 08:46 Dose: 5 mg Metronidazole (Flagyl) 500 mg in 100 mls @ 100 mls/hr IV Q8H EARLENE Ceftriaxone Sodium (Rocephin) 2 gm in 50 mls @ 100 mls/hr IV Q24H EARLENE Midodrine (Midodrine 5 Mg Tablet) 5 mg PO TID.7A.12P.5P PRN PRN Reason: SBP<100 Stop: 05/26/23 11:59 Morphine Sulfate (Morphine Sulfate 2 Mg/Ml Vial) 2 mg IV-PUSH Q4H PRN PRN Reason: Pain Scale 8 - 10 Pantoprazole Sodium (Pantoprazole 40 Mg Vial) 40 mg IV-PUSH DAILY [facility] Stop: 05/25/23 11:29 Last Admin: 05/25/22 13:48 Dose: 40 mg Prochlorperazine Edisylate (Prochlorperazine Edisylate 10 Mg/2 Ml Vial) 5 mg IV- PUSH Q4H PRN PRN Reason: Nausea And Vomiting Stop: 05/25/23 11:10 Sennosides (Sennosides 8.6 Mg Tablet) 2 tab PO DAILY@12 PRN PRN Reason: If no BM in 2 days Stop: 05/25/23 11:59 Sodium Chloride (Sodium Chloride 0.9 % 10 Ml Syringe) 0 ml IV-PUSH PRN PRN PRN Reason: Flush Stop: 05/25/23 06:36 Last Admin: 05/25/22 08:25 Dose: 10 ml Sodium Chloride (Sodium Chloride 0.9 % 10 Ml Syringe) 10 ml IV-PUSH PRN PRN PRN Reason: Flush Stop: 05/25/23 11:10 Sodium Chloride (Sodium Chloride 0.9 % 10 Ml Vial.Pf) 10 ml INJECTION PRN PRN PRN Reason: Dilution Stop: 04/17/24 11:10 Last Admin: 05/25/22 13:48 Dose: 10 ml Sotalol HCl (Sotalol 120 Mg Tablet) 120 mg PO BID [facility] Stop: 05/25/23 20:59 Last Admin: 05/26/22 08:41 Dose: 120 mg Tamsulosin HCl (Tamsulosin 0.4 Mg Cap.Er.24h) 0.4 mg PO QHS [facility] Stop: 05/25/23 21:59 Last Admin: 05/25/22 21:12 Dose: 0.4 mg Vitamin D (Cholecalciferol 25 Mcg (1,000 Units) Tablet) 50 mcg PO QAM [facility] Stop: 05/26/23 08:59 Last Admin: 05/26/22 08:44 Dose: 50 mcg Exam Physical Exam Vital Signs: Temp Pulse Resp BP Pulse Ox O2 Del Method 98.0 F 53 L 16 86/46 L 95 Room Air 05/26/22 07:33 05/26/22 08:42 05/26/22 07:33 05/26/22 07:33 05/26/22 07:33 05/26/22 07:33 Const General: cooperative, comfortable and no acute distress Nutritional Appearance: average body habitus Orientation: alert, awake and oriented x3 Eyes General: appearance normal, both eyes and all related structures Sclera: sclerae normal Resp Effort & Inspection: normal respiratory effort, able to speak in complete sentences and symmetric chest movement Cardio Rate: regular rate Rhythm: regular rhythm GI Inspection: normal to inspection Palpation: soft, hepatosplenomegaly present and nontender Auscultation: normal bowel sounds Skin General: no rashes or lesions noted Results Intake and Output 24 hour I&O: Intake & Output 05/25/22 05/26/22 05/26/22 23:59 07:59 15:59 Intake Total 300 / 470 100 / 100 Balance 300 / 470 100 / 100 Weight 76 kg Labs 05/26/22 06:23 05/26/22 06:23 Laboratory Results - last 72 hr 05/26/22 06:23: Corrected WBC 10.7 H, Uncorrected WBC Count 10.7 H, RBC 4.45, Hgb 12.9 L, Hct 39.9, MCV 89.6, MCH 29.1, MCHC 32.4 L, RDW 14.2, Plt Count 159, MPV 8.3, Neut % (Auto) 76.3, Lymph % (Auto) 7.0, Sumner % (Auto) 13.4, Eos % (Auto) 2.8, Baso % (Auto) 0.5, Nucleat RBC Rel Count 0.0, Neut # (Auto) 8.2 H, Lymph # (Auto) 0.8 L, Sumner # (Auto) 1.4 H, Eos # (Auto) 0.3, Baso # (Auto) 0.1 05/26/22 06:23: PHA Creatinine Clear 67.00, Sodium 136, Potassium 3.8, Chloride 102, Carbon Dioxide 25.1, Anion Gap 12.7, BUN 12, Creatinine 0.82, Est GFR (CKD-EPI) > 60.0, Glucose 95, Calcium 8.0 L, Magnesium 2.1, Total Bilirubin 3.9 H, Direct Bilirubin 2.60 H, AST 138 H, ALT 180 H, Alkaline Phosphatase 127 H, TotalProtein 5.4 L, Albumin 2.9 L, Globulin 2.5, Albumin/Globulin Ratio 1.2 05/25/22 12:53: Troponin I High Sens 15.2 05/25/22 08:44: Troponin I High Sens 7.2 05/25/22 06:44: Digoxin 0.8 L 05/25/22 06:44: B-Natriuretic Peptide 94.0 05/25/22 06:44: Troponin I High Sens 7.6 05/25/22 06:44: PHA Creatinine Clear 80.38, Sodium 138, Potassium 4.1, Chloride 103, Carbon Dioxide 25.9, Anion Gap 13.2, BUN 10, Creatinine 0.67 L, Est GFR (CKD- EPI) > 60.0, Glucose 123 H, Calcium 8.1 L, Total Bilirubin 1.2 H, Direct Bilirubin 0.50 H, Indirect Bilirubin 0.7, AST 85 H, ALT 49, Alkaline [id number], Total Protein 6.3 L, Albumin 3.4 L, Globulin 2.9, Albumin/Globulin Ratio 1.2, Lipase 24.0 05/25/22 06:44: PT 17.0 H, INR 1.5, APTT 31.8 05/25/22 06:44: Corrected WBC 9.6, Uncorrected WBC Count 9.6, RBC 4.74, Hgb 13.9, Hct 42.2, MCV 89.0, MCH 29.4, MCHC 33.0, RDW 14.2, Plt Count 189, MPV 8.0, Neut % (Auto) 73.1, Lymph % (Auto) 15.0, Sumner % (Auto) 9.3, Eos % (Auto) 1.8, Baso % (Auto) 0.8, Nucleat RBC Rel Count 0.0, Neut # (Auto) 7.0, Lymph # (Auto) 1.4, Sumner # (Auto) 0.9 H, Eos # (Auto) 0.2, Baso # (Auto) 0.1, Monocyte Dist Width 19.35 A&P - General Surgery (1) Epigastric pain: Code(s): R10.13 - Epigastric pain Status: Acute (2) Cholelithiasis: Code(s): K80.20 - Calculus of gallbladder without cholecystitis without obstruction Status: Acute (3) Hiatal hernia: Code(s): K44.9 - Diaphragmatic hernia without obstruction or gangrene Status: Acute (4) Cholelithiasis: Code(s): K80.20 - Calculus of gallbladder without cholecystitis without obstruction Status: Acute (5) Chronic anticoagulation: Code(s): Z79.01 - 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 The epigastric pain could be secondary to hiatal hernia supposed to gallbladder disease. Patient still recovering from recent hip surgery. He also is to see urology alie enlarged prostate. No surgery planned this admission unless abdominal symptoms worsen. Patient can follow-up with me following discharge. Documented By: Delvin Rodriguez MD 05/26/22 0850 Signed By: <Electronically signed by MD Delvin Rodriguez> 05/26/22 [id number] [facility] Work Phone: [phone]) 704-439104-19-2023 Progress note Author Anshu Jennings [facility] May 26, 2022 2:42pm Note Date/Time May 26, 2022 2:2 9pm [facility] [address] [place] [address] Hospitalist Progress Note Signed Patient: Lorne,Islam R MR#: [id number] : 1945 Acct:[id number] Age/Sex: 76 / M Adm Date: 3 Loc: 3T Room: [address] [place] [address] Type: ADM IN Attending Dr: Anshu Jennings MD Copies to: ~ Date of Service: 05/26/2022 Subjective Subjective Narrative: Patient was seen and examined at bedside. Remained afebrile. WBC up to 10.7. Patient reported epigastric discomfort after eating his breakfast this morning. patient denies nausea, vomiting, diarrhea, constipation. His GB US showed suspicion for acute cholecystitis. surgery was consulted. Noted to be bradycardic, however, asymptomatic. Exam Physical Exam Vital Signs: Temp Pulse Resp BP Pulse Ox O2 Del Method 97.9 F 52 L 16 98/59 L 97 Room Air 05/26/22 11:17 05/26/22 11:17 05/26/22 11:17 05/26/22 11:17 05/26/22 11:17 05/26/22 11:17 Narrative: Const General: cooperative, comfortable, in no acute distress HEENT Normal oropharyngeal mucosa without any ulcers or exudates Eyes: Conjunctiva normal Pulmonary Auscultation: clear to auscultation , no crackles, no wheezes Cardiovascular Rate: bradycardic Rhythm: regular rhythm Heart Sounds: S1 normal, S2 normal and no murmurs GI Inspection: non-distended Palpation: soft, mild epigastric tenderness. No rigidity or rebound. (received pain meds in ER) Deferred Neuro General: alert, awake and oriented x3. No obvious new focal deficit Musculoskeletal: normal range of motion Extrem General: no cyanosis, + pedal edema Skin: no significant ulcers, no rash noted Psych Appearance: appropriate affect. Grossly normal Objective Lab Results 05/26/22 06:23 05/26/22 06:23 Meds Allergies and Active Meds Allergies mirtazapine Allergy (Severe, Verified 05/25/22 06:39) serotonin syndrome Sulfa (Sulfonamide Antibiotics) Allergy (Verified 05/25/22 06:39) Rash Active Meds: Active Medications Generic Name Dose Route Start Last Admin Trade Name Freq PRN Reason Stop Dose Admin Acetaminophen 650 mg 05/25/22 11:11 Acetaminophen 325 Mg Tablet PO 05/25/23 11:10 Q6HR PRN Pain Scale 1 - 3 or fever Ascorbic Acid 500 mg 05/26/22 09:00 05/26/22 09:23 Ascorbic Acid 500 Mg Tablet PO 05/26/23 08:59 500 mg DAILY EARLENE Administration Aspirin 81 mg 05/25/22 12:30 05/26/22 08:43 Aspirin 81 Mg Tablet.Dr GALINDO 05/25/23 12:29 81 mg DAILY EARLENE Administration Atorvastatin Calcium 40 mg 05/26/22 21:00 Atorvastatin 40 Mg Tablet PO 05/26/23 20:59 QPM EARLENE Calcium Carbonate 250 mg 05/25/22 21:00 05/26/22 08:42 Calcium Carbonate 500 Mg Tab.Chew PO 05/25/23 20:59 250 mg BID EARLENE Administration Cefdinir 300 mg 05/26/22 09:00 Cefdinir 300 Mg Capsule PO DAILY EARLENE Digoxin 125 mcg 05/25/22 12:30 05/26/22 08:42 Digoxin 125 Mcg Tablet PO 05/25/23 12:29 125 mcg QAM EARLENE Administration Docusate Sodium 100 mg 05/25/22 11:11 Docusate 100 Mg Capsule PO 05/25/23 11:10 BID PRN Constipation Ferrous Sulfate 324 mg 05/26/22 09:00 05/26/22 08:44 Ferrous Sulfate 324 Mg Tablet. PO 05/26/23 08:59 324 mg DAILY EARLENE Administration Finasteride 5 mg 05/26/22 09:00 05/26/22 08:46 Finasteride 5 Mg Tablet PO 05/26/23 08:59 5 mg QAM EARLENE Administration Metronidazole 500 mg in 100 mls @ 100 mls/hr 05/26/22 07:45 05/26/22 09:25 Flagyl IV 100 mls/hr Q8H EARLENE Administration Ceftriaxone Sodium 2 gm in 50 mls @ 100 mls/hr 05/26/22 08:30 05/26/22 09:25 Rocephin IV 100 mls/hr Q24H EARLENE Administration Midodrine 5 mg 05/26/22 07:40 Midodrine 5 Mg Tablet PO 05/26/23 11:59 TID.7A.12P.5P PRN SBP<100 Morphine Sulfate 2 mg 05/25/22 11:11 Morphine Sulfate 2 Mg/Ml Vial IV-PUSH Q4H PRN Pain Scale 8 - 10 Pantoprazole Sodium 40 mg 05/25/22 11:30 05/26/22 09:26 Pantoprazole 40 Mg Vial IV-PUSH 05/25/23 11:29 40 mg DAILY EARLENE Administration Prochlorperazine Edisylate 5 mg 05/25/22 11:11 Prochlorperazine Edisylate 10 Mg/2 Ml Vial IV-PUSH 05/25/23 11:10 Q4H PRN Nausea And Vomiting Sennosides 2 tab 05/25/22 12:00 Sennosides 8.6 Mg Tablet PO 05/25/23 11:59 DAILY@12 PRN If no BM in 2 days Sodium Chloride 0 ml 05/25/22 06:37 05/25/22 08:25 Sodium Chloride 0.9 % 10 Ml Syringe IV-PUSH 05/25/23 06:36 10 ml PRN PRN Administration Flush Sodium Chloride 10 ml 05/25/22 11:11 Sodium Chloride 0.9 % 10 Ml Syringe IV-PUSH 05/25/23 11:10 PRN PRN Flush Sodium Chloride 10 ml 05/25/22 11:11 05/26/22 09:27 Sodium Chloride 0.9 % 10 Ml Vial.Pf INJECTION 05/25/23 11:10 10 ml PRN PRN Administration Dilution Sotalol HCl 120 mg 05/25/22 21:00 05/26/22 08:41 Sotalol 120 Mg Tablet PO 05/25/23 20:59 120 mg BID EARLENE Administration Tamsulosin HCl 0.4 mg 05/25/22 22:00 05/25/22 21:12 Tamsulosin 0.4 Mg Cap.Er.24h PO 05/25/23 21:59 0.4 mg QHS EARLENE Administration Vitamin D 50 mcg 05/26/22 09:00 05/26/22 08:44 Cholecalciferol 25 Mcg (1,000 Units) Tablet PO 05/26/23 08:59 50 mcg QAM EARLENE Administration A&P - Hospitalist Assessment/Plan (1) Epigastric pain: (2) Symptomatic bradycardia: (3) Cholelithiasis: Plan Epigastric pain Suspected acute cholecystitis Cholelithiasis, concern for choledocholithiasis, risk of cholangitis Possibly GERD ACS was ruled out AAA ruled out Digoxin toxicity ruled out (level 0.8) -Afebrile, WBC up to 10.7 -Trop neg x 3. -CT AP showed no acute pathology. Hiatal hernia (known), cholelithiasis -GB US obtained showed suspected acute cholecystitis -Bilirubin is uptrending today as well as LFTs. Clinically patient had mild painafter meals -Started empirically on Rocephin and Flagyl for intraabdominal coverage -General surgery consult -Monitor for abdominal pain -Pain control as needed -Antiemetics as needed -Continue PPI Sinus Bradycardia -Asymptomatic -Will hold Digoxin for now. Coreg home med is PRN, continue to hold -Continue to monitor HR while on Sotalol -Monitor on telemetry Physical debility Functional decline Advanced age -PT/OT ordered Chronic conditions: CAD with PCI: continue aspirin and statin Afib: continue sotalol, hold digoxin. Patient is not on AC at home BPH: continue Flomax and Proscar Recent UTI: continue Rocephin for now Home medications restarted as appropriate Diet: healthy heart, fluid restriction DVT ppx: SCDs GI ppx: Protonix Code status: DNR CCA with intubation Disposition: Inpatient status Discussed with patient and son at bedside. All questions answered. In agreement with the above plan -Based on my assessment and evaluation at this time, our working diagnosis as mentioned above. I anticipate further hospital stay to address the underlying acute illness given new findings on GB US and this need to be addressed as its relevant to the his chief complaint. Also need to monitor HR while on AV blockade agents and Sotalol with potential change in doses and cardiology evaluation Anshu Bullock MD Internal Medicine Hospitalist Attending Physician Documented By: Anshu Jennings MD 05/26/22 14 26 Signed By: <Electronically signed by Anshu Jennings MD> 05/26/22 [id number] [facility] Work Phone: [phone]) 356-270004-18-2023 History and physical note Author Anshu Jennings [facility] May 25, 2022 11:46am Note Date/Time May 25, 2022 11: 45am [facility] [address] [place] [address] Hospitalist H&P Signed Patient: Angella Pradhan MR#: [id number] : 1945 Acct:[id number] Age/Sex: 76 / M Adm Date: 3 Loc: 3T Room: [address] [place] [address] Type: ADM INOo Attending Dr: Anshu Jennings MD Copies to: MD Anshu Gonsalves MD~ HPI DATE OF EXAMINATION: 05/25/22 CHIEF COMPLAINT: Epigastric pain HISTORY OF PRESENT ILLNESS: Patient 76-year-old male history of CAD with multiple stents, A-fib on sotalol and digoxin and carvedilol, hyperlipidemia and other comorbidities, presents forevaluation of epigastric abdominal pain/ lower chest pain that started this morning around 1 AM. History obtained from patient and his son at bedside, said patient has been out of rehab about 3 weeks now, living home essentially by himself, patient's daughter helps him with his medications. Patient used to get home health services but they have cut down hours and now takes his meds on his own with the help of his daughter, he said yesterday had to take them on his own, took 6 pills and unsure if they were the correct medications. He woke up at1 am c/o epigastric pain. Called his son who called EMS and when they got there,patient was bradycardic and unable to get initial blood pressure. He was given adose of atropanine by EMS then his HR improved to 60s and got normal BP. in the ER, patient was received with vitals essentially within normal limits. With his complex cardiac hx and multiple medications, decision made to keep the patient for observation on cardiac monitoring, also to follow up on his LFTS and Bili with his underlying cholelithiasis and rule out GB disease. Review of Systems Review of Systems Review of systems: 10 systems are reviewed and are negative except as mentioned elsewhere in the documentation PMFSH Vaccinated for COVID-19?: Yes Medical History Afib Arthritis Arthritis BPH (benign prostatic hyperplasia) Coronary artery disease DJD (degenerative joint disease) Former smoker Full dentures GERD (gastroesophageal reflux disease) History of COVID-19 06/2021 Hyperlipidemia Hypotension borderline per NOHC - responds to Midodrine Myocardial infarct Right hip pain Seizure single episode 01/31/21 UTI (urinary tract infection) being treated currently Surgical History 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 History of cardiac catheterization Hx of carpal tunnel repair right Hx of hernia repair umbilical Stented coronary artery 4 stents Family History Father H/O heart artery stent Mother Medical history unknown Brother HTN (hypertension) CAD (coronary artery disease) Social History Smoking Status: Former smoker Tobacco Type: cigarettes Substance Use Type: None Social History Comments: assisted living at [facility] Medications and Allergies Allergies mirtazapine Allergy (Severe, Verified 05/25/22 06:39) serotonin syndrome Sulfa (Sulfonamide Antibiotics) Allergy (Verified 05/25/22 06:39) Rash Home Medications acetaminophen 500 mg tablet 500 mg PO Q4H PRN Pain #0 tabs 04/02/22 [Rx Confirmed 05/25/22] apixaban 5 mg tablet (Eliquis) 5 mg PO BID #0 tabs 04/02/22 [Rx Confirmed 05/25/22] aspirin 81 mg tablet,delayed release 81 mg PO DAILY #0 tabs 04/02/22 [Rx Confirmed 05/25/22] atorvastatin 40 mg tablet 40 mg PO DAILY #0 tabs 04/02/22 [Rx Confirmed 05/25/22] calcium carbonate 200 mg calcium (500 mg) chewable tablet 250 mg PO BID #0 tabs 04/02/22 [Rx Confirmed 05/25/22] cholecalciferol (vitamin D3) 25 mcg (1,000 unit) tablet 50 mcg PO QAM #0 tabs 04/02/22 [Rx Confirmed 05/25/22] digoxin 125 mcg (0.125 mg) tablet 125 mcg PO QAM #0 tabs 04/02/22 [Rx Confirmed 05/25/22] ferrous sulfate 324 mg (65 mg iron) tablet,delayed release 324 mg PO DAILY #0 tabs 04/02/22 [Rx Confirmed 05/25/22] finasteride 5 mg tablet 5 mg PO QAM #0 tabs 04/02/22 [Rx Confirmed 05/25/22] hyoscyamine sulfate 0.125 mg disintegrating tablet (Anaspaz) 0.125 mg PO QID PRNSpasms #0 tabs 04/02/22 [Rx Confirmed 05/25/22] oxybutynin chloride 5 mg tablet,extended release 24 hr 10 mg PO DAILY.5P #0 tabs04/02/22 [Rx Confirmed 05/25/22] sennosides 8.6 mg tablet (Senna Lax) 2 tab PO DAILY@12 PRN If no BM in 2 days #0tabs 04/02/22 [Rx Confirmed 05/25/22] tamsulosin 0.4 mg capsule 0.4 mg PO QHS #0 caps 04/02/22 [Rx Confirmed 05/25/22] ascorbic acid (vitamin C) 500 mg tablet (Vitamin C) 500 mg PO DAILY 05/25/22 [History Confirmed 05/25/22] carvedilol 3.125 mg tablet 3.125 mg PO DAILY PRN SPB <140 05/25/22 [History Confirmed 05/25/22] cefdinir 300 mg capsule 300 mg PO BID 05/25/22 [History Confirmed 05/25/22] lactobacillus combination no.4 3 billion cell capsule (Probiotic) 05/25/22 [History Confirmed 05/25/22] midodrine 5 mg tablet 10 mg PO TID.7A.12P.5P PRN SBP <100 05/25/22 [History Confirmed 05/25/22] pantoprazole 40 mg tablet,delayed release 40 mg PO QPM 05/25/22 [History Confirmed 05/25/22] sotalol 120 mg tablet (Sotalol AF) 120 mg PO BID 05/25/22 [History Confirmed 05/25/22] Exam Physical Exam Vital Signs: Temp Pulse Resp BP Pulse Ox O2 Del Method 98.2 F 98 H 18 133/72 94 L Room Air 05/25/22 10:59 05/25/22 10:59 05/25/22 10:59 05/25/22 10:59 05/25/22 10:59 05/25/22 10:59 Narrative: Const General: cooperative, comfortable, in no acute distress HEENT Normal oropharyngeal mucosa without any ulcers or exudates Eyes: Conjunctiva normal Pulmonary Auscultation: clear to auscultation , no crackles, no wheezes Cardiovascular Rate: normal rate Rhythm: regular rhythm Heart Sounds: S1 normal, S2 normal and no murmurs GI Inspection: non-distended Palpation: soft, not firm and nontender. No rigidity or rebound. (received pain meds in ER) Deferred Neuro General: alert, awake and oriented x3. No obvious new focal deficit Musculoskeletal: normal range of motion Extrem General: no cyanosis, ++ pedal edema Skin: no significant ulcers, no rash noted Psych Appearance: appropriate affect. Grossly normal Results Lab Results Labs: Laboratory Last Values Corrected WBC 9.6 X10E3/uL (4.1-10.5) 05/25/22 06:44 Uncorrected WBC Count 9.6 x10E3/uL (4.1-10.5) 05/25/22 06:44 RBC 4.74 X10E6/uL (3.90-5.60) 05/25/22 06:44 Hgb 13.9 g/dL (13.0-17.0) 05/25/22 06:44 Hct 42.2 % (38.8-50.0) 05/25/22 06:44 MCV 89.0 fl (83.5-101) 05/25/22 06:44 MCH 29.4 pg (27.5-35.2) 05/25/22 06:44 MCHC 33.0 g/dL (32.5-35.6) 05/25/22 06:44 RDW 14.2 % (12.0-14.8) 05/25/22 06:44 Plt Count 189 x10E3/uL (150-450) 05/25/22 06:44 MPV 8.0 fl (6.6-10.1) 05/25/22 06:44 Neut % (Auto) 73.1 % (.) 05/25/22 06:44 Lymph % (Auto) 15.0 % (.) 05/25/22 06:44 Sumner % (Auto) 9.3 % (.) 05/25/22 06:44 Eos % (Auto) 1.8 % (.) 05/25/22 06:44 Baso % (Auto) 0.8 % (.) 05/25/22 06:44 Nucleat RBC Rel Count 0.0 /100 WBC (0-0.5) 05/25/22 06:44 Neut # (Auto) 7.0 x10E3/uL (1.8-7.7) 05/25/22 06:44 Lymph # (Auto) 1.4 x10E3/uL (1.00-4.8) 05/25/22 06:44 Sumner # (Auto) 0.9 x10E3/uL (0.0-0.8) H 05/25/22 06:44 Eos # (Auto) 0.2 x10E3/uL (0.0-0.45) 05/25/22 06:44 Baso # (Auto) 0.1 x10E3/uL (0.0-0.2) 05/25/22 06:44 Monocyte Dist Width 19.35 % (0.00-20.00) 05/25/22 06:44 PT 17.0 Seconds (9.0-12.9) H 05/25/22 06:44 INR 1.5 05/25/22 06:44 APTT 31.8 Seconds (25.1-36.5) 05/25/22 06:44 PHA Creatinine Clear 80.38 05/25/22 06:44 Sodium 138 mmol/L (136-145) 05/25/22 06:44 Potassium 4.1 mmol/L (3.5-5.1) 05/25/22 06:44 Chloride 103 mmol/L (98-107) 05/25/22 06:44 Carbon Dioxide 25.9 mmol/L (21.0-31.0) 05/25/22 06:44 Anion Gap 13.2 mEq/L (6.0-15.0) 05/25/22 06:44 BUN 10 mg/dL (7-25) 05/25/22 06:44 Creatinine 0.67 mg/dL (0.70-1.30) L 05/25/22 06:44 Est GFR (CKD-EPI) > 60.0 mL/Min 05/25/22 06:44 Glucose 123 mg/dL (70-100) H 05/25/22 06:44 Calcium 8.1 mg/dL (8.6-10.3) L 05/25/22 06:44 Total Bilirubin 1.2 mg/dl (0.3-1.0) H 05/25/22 06:44 Direct Bilirubin 0.50 mg/dL (0.03-0.18) H 05/25/22 06:44 Indirect Bilirubin 0.7 mg/dL 05/25/22 06:44 AST 85 U/L (13-39) H 05/25/22 06:44 ALT 49 U/L (7-52) 05/25/22 06:44 Alkaline Phosphatase 104 U/L (34-104) 05/25/22 06:44 Troponin I High Sens 7.2 pg/mL (0.0-20.0) 05/25/22 08:44 B-Natriuretic Peptide 94.0 pg/mL (5-100) 05/25/22 06:44 Total Protein 6.3 gm/dL (6.4-8.9) L 05/25/22 06:44 Albumin 3.4 gm/dL (3.5-5.7) L 05/25/22 06:44 Globulin 2.9 gm/dL 05/25/22 06:44 Albumin/Globulin Ratio 1.2 05/25/22 06:44 Lipase 24.0 U/L (11.0-82.0) 05/25/22 06:44 Digoxin 0.8 ng/mL (0.9-2.0) L 05/25/22 06:44 A&P - Hospitalist Assessment/Plan (1) Epigastric pain: (2) Symptomatic bradycardia: (3) Cholelithiasis: Plan Epigastric pain Rule out ACS Rule out Gall bladder disease Possibly GERD AAA ruled out Digoxin toxicity ruled out (level 0.8) -Afebrile, no leukocytosis. -Trop neg x 2. Follow up serial troponin -CT AP showed no acute pathology. Hiatal hernia (known ), cholelithiasis -Given his pain and cholelithiasis, slight elevation in bili. Will get GB US. Check repeat labs in am -Monitor for abdominal pain -Pain control as needed -Antiemetics as needed -Continue PPI -Monitor on telemetry Chronic conditions: CAD with PCI: continue aspirin and statin Afib: continue sotalol, digoxin. Continue Eliquis for AC BPH: continue Flomax and Proscar Recent UTI: continue cefdinir Home medications restarted as appropriate Diet: healthy heart, fluid restriction DVT ppx: Eliquis GI ppx: Protonix Code status: DNR CCA with intubation Disposition: Observation status Discussed with patient and son at bedside. All questions answered. In agreement with the above plan -Based on my assessment and evaluation at this time, our working diagnosis as mentioned above. I anticipate less than two midnights hospital stay to address the underlying acute illness. Anshu Bullock MD Internal Medicine Hospitalist Attending Physician Documented By: Anshu Jennings MD 05/25/22 11 24 Signed By: <Electronically signed by Anshu Jennings MD> 05/25/22 0717 [facility] Work Phone: [phone] 594-150901-13-2023 Hospital Discharge instructions Patient Education 02/19/2022 10:01:29 Benign Prostatic Hyperplasia Benign Prostatic Hyperplasia Benign prostatic hyperplasia (BPH) is an enlarged prostate gland that is caused by the normal agingprocess and not by cancer. The prostate is a walnut-sized gland that is involved in the production of semen. It is located in front of the rectum and below the bladder. The bladder stores urine and the urethra is the tube that carries the urine out of the body. The prostate may get bigger as a man gets older. An enlarged prostate can press on the urethra. This can make it harder to pass urine. The build-up of urine in the bladder can cause infection. Back pressure and infection may progress to bladder damage and kidney (renal) failure. What are the causes? This condition is part of a normal aging process. However, not all men develop problems from this condition. If the prostate enlarges away from the urethra, urine flow will not be blocked. If it enlarges toward the urethra and compresses it, there will be problems passing urine. What increases the risk? This condition is more likely to develop in men over the age of 50 years. What are the signs or symptoms? Symptoms of this condition include: Getting up often during the night to urinate. Needing to urinate frequently during the day. Difficulty starting urine flow. Decrease in size and strength of your urine stream. Leaking (dribbling) after urinating. Inability to pass urine. This needs immediate treatment. Inability to completely empty your bladder. Pain when you pass urine. This is more common if there is also an infection. Urinary tract infection (UTI). How is this diagnosed? This condition is diagnosed based on your medical history, a physical exam, and your symptoms. Tests will also be done, such as: A post-void bladder scan. This measures any amount of urine that may remain in your bladder after you finish urinating. A digital rectal exam. In a rectal exam, your health care provider checks your prostate by putting a lubricated, gloved finger into your rectum to feel the back of your prostate gland. This exam detects the size of your gland and any abnormal lumps or growths. An exam of your urine (urinalysis). A prostate specific antigen (PSA) screening. This is a blood test used to screen for prostate cancer. An ultrasound. This test uses sound waves to electronically produce a picture of your prostate gland. Your health care provider may refer you to a specialist in kidney and prostate diseases (urologist). How is this treated? Once symptoms begin, your health care provider will monitor your condition (active surveillance or watchful waiting). Treatment for this condition will depend on the severity of your condition. Treatment may include: Observation and yearly exams. This may be the only treatment needed if your condition and symptoms are mild. Medicines to relieve your symptoms, including: ?Medicines to shrink the prostate. ?Medicines to relax the muscle of the prostate. Surgery in severe cases. Surgery may include: ?Prostatectomy. In this procedure, the prostate tissue is removed completely through an open incision or with a laparoscope or robotics. ?Transurethral resection of the prostate (TURP). In this procedure, a tool is inserted through the opening at the tip of the penis (urethra). It is used to cut away tissue of the inner core of the prostate. The pieces are removed through the same opening of the penis. This removes the blockage. ?Transurethral incision (TUIP). In this procedure, small cuts are made in the prostate. This lessens the prostate's pressure on the urethra. ?Transurethral microwave thermotherapy (TUMT). This procedure uses microwaves to create heat. The heat destroys and removes a small amount of prostate tissue. ?Transurethral needle ablation (TUNA). This procedure uses radio frequencies to destroy and remove a small amount of prostate tissue. ?Interstitial laser coagulation (ILC). This procedure uses a laser to destroy and remove a small amount of prostate tissue. ?Transurethral electrovaporization (TUVP). This procedure uses electrodes to destroy and remove a small amount of prostate tissue. ?Prostatic urethral lift. This procedure inserts an implant to push the lobes of the prostate away from the urethra. Follow these instructions at home: Take [id number]-bvocmvy and prescription medicines only as told by your health care provider. Monitor your symptoms for any changes. Contact your health care provider with any changes. Avoid drinking large amounts of liquid before going to bed or out in public. Avoid or reduce how much caffeine or alcohol you drink. Give yourself time when you urinate. Keep all follow-up visits as told by your health care provider. This is important. Contact a health care provider if: You have unexplained back pain. Your symptoms do not get better with treatment. You develop side effects from the medicine you are taking. Your urine becomes very dark or has a bad smell. Your lower abdomen becomes distended and you have trouble passing your urine. Get help right away if: You have a fever or chills. You suddenly cannot urinate. You feel lightheaded, or very dizzy, or you faint. There are large amounts of blood or clots in the urine. Your urinary problems become hard to manage. You develop moderate to severe low back or flank pain. The flank is the side of your body between the ribs and the hip. These symptoms may represent a serious problem that is an emergency. Do not wait to see if the symptoms will go away. Get medical help right away. Call your local emergency services (911 in the [place] Do not drive yourself to the hospital. Summary Benign prostatic hyperplasia (BPH) is an enlarged prostate that is caused by the normal aging process and not by cancer. An enlarged prostate can press on the urethra. This can make it hard to pass urine. This condition is part of a normal aging process and is more likely to develop in men over the age of 50 years. Get help right away if you suddenly cannot urinate. This information is not intended to replace advice given to you by your health care provider. Make sure you discuss any questions you have with your health care provider. Document Released: 01/24/2006 Document Revised: 12/19/2018 Document Reviewed: 02/28/2017 [employer] Patient Education 2020 [employer] Follow Up Care 01/26/2022 14:46:04 With:BOSTON DUMONT, Antoine Morton, URL Address: [address] [place] [address]- When: Unknown [facility] 05-05-2022 Progress note Author Horace Palafox [facility] June 11, 2021 7:48am Note Date/Time June 11, 2021 7:48am [facility] [address] [place] [address] Physiatry(Rehab) Progress Note Signed Patient: Angella Pradhan MR#: [id number] : 1945 Acct:[id number] Age/Sex: 75 / M Adm Date: 2 Loc: Room: 3N1854-3 Type : ADM IN Attending Dr: Horace Palafox MD Copies to: ~ Date of Service: 06/10/2021 Subjective Subjective Narrative: Mr. Pradhan is a 75 year old male with a past medical history of arthritis, BPH,CAD, MO s/p coronary artery stenting, who is admitted to rehabilitation for functional decline status post elective left total hip arthroplasty. He reports a longstanding history of bilateral hip pain as a result of [id number] . The surgery was planned to be performed sometime last year however he sustained a myocardial infarction in July 2020, which required stenting and resulted in prolonged recovery. He has been residing at [facility] since his heart attack. He is telling me as soon as he is finishedwith rehabilitation and medically cleared by cardiology, he will have his right hip replaced also. Postop course was complicated by a new onset atrial fibrillation which spontaneously converted to a.fib. Cardiology was consulted. He was placed on Eliquis and Sotalol. He remains in normal sinus rhythm on current therapy. On admission to rehab patient still has a Ghotra catheter. Reports inability to void after catheter removal postop due to past history of prostate hypertrophy. Catheter is draining clear yellow urine denies any pain or discomfort. We will attempt a voiding trial in the near future, if unsuccessful will have him evaluated by urology outpatient. Left hip incision is well approximated with anand intact. There is moderate amount of serous drainage from the incision. No erythema, induration, local tenderness is appreciated on exam. He also developed a pressure injury to his coccyx, likely due to incontinence. We will have wound care follow. He plans to return back to [facility] at discharge. At baseline he isambulatory with a walker, also uses electric scooter for community distances. Interval history: D/c tomorrow if covid pcr negative, he's asymptomatic BP lower but not unusual for him, we can reduce his flomax while the ghotra is inplace Continues to ambulate short distances with wheeled walker and standby assist andpropels self in wheelchair for household and community distances. Review of Systems Constitutional Constitutional: Denies fever(s) and Denies weakness Eyes Eyes: Reports system reviewed and no additional complaints, except as documented ENT Ears, Nose, Mouth, and Throat: Reports system reviewed and no additional complaints, except as documented Cardiovascular Cardiovascular: Denies chest pain, Denies dyspnea on exertion and Reports pedal edema Respiratory Respiratory: Reports system reviewed and no additional complaints, except as documented and Denies dyspnea on exertion Gastrointestinal Gastrointestinal: Reports constipation Genitourinary Genitourinary: Reports system reviewed and no additional complaints, except as documented Musculoskeletal Musculoskeletal: Reports arthralgias, Reports joint swelling and Reports limitedrange of motion Integumentary/Breasts Skin/Breast: Reports sores Neurologic Neurologic: Reports system reviewed and no additional complaints, except as documented and Denies weakness Psychiatric Psychiatric: Reports system reviewed and no additional complaints, except as documented Endocrine Endocrine: Reports system reviewed and no additional complaints, except as documented Hematologic/Lymphatic Hematologic/Lymphatic: Reports system reviewed and no additional complaints, except as documented Allergic/Immunologic Allergic/Immunologic: Reports system reviewed and no additional complaints, except as documented Exam Physical Exam Vital Signs: Temp Pulse Resp BP Pulse Ox 98.6 F 62 18 99/58 L 94 L 06/11/21 06:37 06/11/21 06:37 06/11/21 06:37 06/11/21 06:37 06/11/21 06:37 Const General: cooperative, comfortable, no acute distress and well developed Nutritional Appearance: average body habitus Orientation: alert, awake and oriented x3 HEENT Head: normal to inspection, normocephalic and atraumatic Ears: hearing grossly normal bilaterally Mouth: oral mucosae normal Eyes General: appearance normal, both eyes and all related structures Visual Srivastava: normal visual srivastava by confrontation Pupils: PERRL EOM: EOM intact bilaterally Neck Neck: normal visual inspection, full ROM, no lymphadenopathy and trachea midline Chest Chest palpation & inspection: normal inspection of the chest Resp Effort & Inspection: normal respiratory effort, able to speak in complete sentences, symmetric chest movement, no audible wheezes and no cough Auscultation: clear to auscultation bilaterally Cardio Jugular venous pressure: no JVD Palpation: normal PMI Rate: regular rate Rhythm: regular rhythm Heart Sounds: S1 normal and S2 normal GI Inspection: normal to inspection Palpation: soft and no hepatosplenomegaly Auscultation: hyperactive bowel sounds Musc Cervical Spine: normal cervical lordosis and cervical ROM normal Skin Wounds: wounds noted Neuro General: patient alert, patient awake and patient oriented x3 Cranial Nerves: CN's II-XII intact bilaterally Cognition: normal cognition Speech: speech normal Motor: muscle tone normal throughout Sensory Exam: no sensory deficits noted Extrem General: capillary refill normal and edema Laterality: bilaterally (Foot and leg) Severity: pitting and 3+ Psych Appearance: grossly normal Mental Status: mental status grossly normal Mood: congruent mood Affect: normal affect Speech and Movement: speech and movement normal Attitude: cooperative Thought Process: normal Insight: fair Judgment: fair Objective Labs CBC & Chem 7: 06/05/21 04:18 06/05/21 04:18 Labs: Laboratory Results - last 24 hr 06/10/21 12:17 SARS Antigen (LFIA) Negative Medications and Allergies Allergies and Active Meds: Allergies mirtazapine Allergy (Severe, Verified 06/05/21 16:03) serotonin syndrome Active Medications Generic Name Dose Route Start Last Admin Trade Name Devenq PRN Reason Stop Dose Admin Acetaminophen 500 mg 05/27/21 15:47 06/09/21 17:37 Acetaminophen 500 Mg Tablet PO 05/27/22 15:46 500 mg Q4H PRN Administration Pain Al Hydrox/Mg Hydrox/Simethicone 30 ml 05/27/21 15:47 05/28/21 22:01 Mag Hydrox/Al Hydrox/Simeth 30 Ml Udc PO 05/27/22 15:46 30 ml Q4H PRN Administration Indigestion Apixaban 5 mg 05/27/21 21:00 06/10/21 20:41 Apixaban 5 Mg Tablet PO 05/27/22 20:59 5 mg BID EARLENE Administration Ascorbic Acid 500 mg 05/27/21 17:00 06/10/21 17:32 Ascorbic Acid 500 Mg Tablet PO 05/27/22 16:59 500 mg BID.WITH.MEALS EARLENE Administration Bisacodyl 10 mg 05/27/21 15:47 Bisacodyl 10 Mg Supp.Rect AZ 05/27/22 15:46 DAILY PRN Constipation Calcium Carbonate 500 mg 05/27/21 17:00 06/10/21 17:32 Calcium Carbonate 500 Mg Tablet PO 05/27/22 16:59 500 mg BID.WITH.MEALS EARLENE Administration Digoxin 125 mcg 05/28/21 09:00 06/10/21 10:02 Digoxin 125 Mcg Tablet PO 05/28/22 08:59 125 mcg QAM EARLENE Administration Docusate Sodium 100 mg 05/27/21 15:47 06/10/21 20:41 Docusate 100 Mg Capsule PO 05/27/22 15:46 100 mg BID PRN Administration Constipation Docusate Sodium 283 mg 05/27/21 15:47 Docusate Enema 283 Mg/5 Ml Enema AZ 05/27/22 15:46 DAILY PRN Constipation Ferrous Sulfate 324 mg 06/05/21 16:15 06/10/21 10:03 Ferrous Sulfate 324 Mg Tablet.Dr PO 06/05/22 16:14 324 mg DAILY EARLENE Administration Finasteride 5 mg 05/28/21 09:00 06/10/21 10:03 Finasteride 5 Mg Tablet PO 05/28/22 08:59 5 mg QAM EARLENE Administration Gabapentin 300 mg 05/27/21 21:00 06/10/21 20:41 Gabapentin 300 Mg Capsule PO 05/27/22 20:59 300 mg BID EARLENE Administration Guaifenesin/Dextromethorphan 10 ml 05/27/21 16:25 Guaif/Dextromethorphan Syrup 10 Ml Udc PO 05/27/22 16:24 QID PRN Cough Hyoscyamine 0.125 mg 05/27/21 16:25 06/10/21 20:41 Hyoscyamine Sulfate 0.125 Mg Tab.Rapdis PO 0.125 mg QID PRN Administration Spasms Lact Acid/Bifidobact/Lact [place]/Streptoc Th 1 cap 05/28/21 09:00 06/10/21 10:04 L. Acidophilus/Strept/La P-Carlos 1 Cap Capsule PO 05/28/22 08:59 1 cap QAM EARLENE Administration Lactulose 30 gm 05/27/21 15:47 05/28/21 15:03 Lactulose 20 Gm/30 Ml Udc PO 05/27/22 15:46 30 gm DAILY PRN Administration Constipation Levetiracetam 500 mg 05/27/21 21:00 06/10/21 20:41 Levetiracetam 500 Mg Tablet PO 05/27/22 20:59 500 mg BID EARLENE Administration Levofloxacin 750 mg 06/08/21 10:30 06/10/21 10:04 Levofloxacin 750 Mg Tablet PO 06/18/21 10:29 750 mg DAILY EARLENE Administration Midodrine 10 mg 05/27/21 17:00 06/11/21 06:40 Midodrine 5 Mg Tablet PO 05/27/22 16:59 10 mg TID.7A.12P.5P EARLENE Administration Nystatin 1 applic 05/28/21 09:00 06/10/21 10:05 Nystatin 100,000 Unit/Gram Powder 15 Gm Bottle TOPICAL 05/28/22 08:59 1 applic DAILY EARLENE Administration Omeprazole 40 mg 05/28/21 09:00 06/10/21 10:05 Omeprazole 20 Mg Capsule.Dr PO 05/28/22 08:59 40 mg QAM EARLENE Administration Oxycodone HCl 5 mg 05/27/21 16:25 06/10/21 23:49 Oxycodone Ir 5 Mg Tablet PO 5 mg Q4HR PRN Administration Pain Scale 6 - 10 Sennosides 2 tab 05/28/21 12:00 06/11/21 06:45 Sennosides 8.6 Mg Tablet PO 05/28/22 11:59 2 tab DAILY@12 EARLENE Administration Sodium Chloride 0 ml 05/27/21 15:47 Sodium Chloride 0.9 % 10 Ml Syringe IV-PUSH 05/27/22 15:46 PRN PRN Flush Sotalol HCl 60 mg 05/27/21 21:00 06/10/21 20:41 Sotalol 120 Mg Tablet PO 05/27/22 20:59 60 mg BID EARLENE Administration Tamsulosin HCl 0.4 mg 05/28/21 22:00 06/10/21 20:41 Tamsulosin 0.4 Mg Cap.Er.24h PO 05/28/22 21:59 0.4 mg QHS EARLENE Administration Vitamin D 50 mcg 05/28/21 09:00 06/10/21 10:01 Cholecalciferol 25 Mcg (1,000 Units) Tablet PO 05/28/22 08:59 50 mcg QAM EARELNE Administration Zinc Sulfate 220 mg 06/05/21 16:15 06/10/21 10:06 Zinc Sulfate 220 Mg Capsule PO 06/05/22 16:14 220 mg DAILY EARLENE Administration Assessment/Plan Assessment/Plan (1) Impaired mobility and activities of daily living: Code(s): Z74.09 - Other reduced mobility; Z78.9 - Other specified health status Status: Acute (2) Pressure ulcer, stage 1: Code(s): L89.91 - Pressure ulcer of unspecified site, stage 1 Status: Acute (3) S/P total left hip arthroplasty: Code(s): Z96.642 - Presence of left artificial hip joint Status: Acute (4) BPH (benign prostatic hyperplasia): Code(s): N40.0 - Benign prostatic hyperplasia without lower urinary tract symptoms Status: Acute (5) Paroxysmal A-fib: Code(s): I48.0 - Paroxysmal atrial fibrillation Status: Acute (6) Coronary artery disease: Code(s): I25.10 - Atherosclerotic heart disease of [place] coronary artery without angina pectoris Status: Acute (7) Hyperlipidemia: Code(s): E78.5 - Hyperlipidemia, unspecified Status: Acute Plan Patient is a 75-year-old male admitted to the inpatient rehabilitation for functional decline status post total left knee arthroplasty complicated by new onset A. fib postop. He is in normal sinus rhythm and on current management. * Reduce flomax with hypotension while ghotra in place * Covid PCR ordered * Ambulates 30 feet with a wheeled walker standby assist, propels self in wheelchair for community distances Hospitalist to assist with management of comorbid medical conditions Pain control:Continue oxycodone for now Bowel and bladder: Maintain Ghotra. Skin: Continue wound care for pressure ulcer as ordered. DVT prophylaxis:Covered with Eliquis. Functional status:Walking 35 feet with therapy, contact-guard assist and wheelchair follow. Min to contact-guard for self-care. Discharge planning:Plan for DC tomorrow Documented By: Horace Palafox MD 06/10/21 0945 Signed By: <Electronically signed by Horace Palafox MD> 06/11/21 0748 [facility] Work Phone: [phone]) 921-493705-03-2022 Progress note Author Horace Palafox [facility] June 09, 2021 3:26pm Note Date/Time June 09, 2021 11:31a m [facility] [address] [place] [address] Physiatry(Rehab) Progress Note Signed Patient: Angella Pradhan MR#: [id number] : 1945 Acct:[id number] Age/Sex: 75 / M Adm Date: 2 Loc: Room: [address] [place] [address] Type : ADM IN Attending Dr: Horace Palafox MD Copies to: ~ <Cesilia Rosales APRN - Last Filed: 06/09/21 11:49> Date of Service: 06/09/2021 Subjective <Cesilia Rosales APRN - Last Filed: 06/09/21 11:49> Subjective Narrative: Mr. Pradhan is a 75 year old male with a past medical history of arthritis, BPH,CAD, MO s/p coronary artery stenting, who is admitted to rehabilitation for functional decline status post elective left total hip arthroplasty. He reports a longstanding history of bilateral hip pain as a result of [id number] . The surgery was planned to be performed sometime last year however he sustained a myocardial infarction in July 2020, which required stenting and resulted in prolonged recovery. He has been residing at [facility] since his heart attack. He is telling me as soon as he is finishedwith rehabilitation and medically cleared by cardiology, he will have his right hip replaced also. Postop course was complicated by a new onset atrial fibrillation which spontaneously converted to a.fib. Cardiology was consulted. He was placed on Eliquis and Sotalol. He remains in normal sinus rhythm on current therapy. On admission to rehab patient still has a Ghotra catheter. Reports inability to void after catheter removal postop due to past history of prostate hypertrophy. Catheter is draining clear yellow urine denies any pain or discomfort. We will attempt a voiding trial in the near future, if unsuccessful will have him evaluated by urology outpatient. Left hip incision is well approximated with anand intact. There is moderate amount of serous drainage from the incision. No erythema, induration, local tenderness is appreciated on exam. He also developed a pressure injury to his coccyx, likely due to incontinence. We will have wound care follow. He plans to return back to [facility] at discharge. At baseline he isambulatory with a walker, also uses electric scooter for community distances. Interval history: He did not sleep well last night, could not get comfortable due to hip pain. Also, complained of bladder spasms and urine leakage around the catheter. The catheter was flushed per nursing and is draining well now. He also received a PRN dose of hyoscyamine, which he thinks was helpful in reducing the discomfort. General surgery note reviewed. No intervention needed at this time. We will arrange discharge to [place] on . Per patient, daughter or son can transport him back to the residential via their wheelchair van. He is requesting to maintain the Ghotra catheter at discharge. Continues to ambulate short distances with wheeled walker and standby assist andpropels self in wheelchair for household and community distances. Review of Systems <Cesilia Rosales APRN - Last Filed: 06/09/21 11:49> Constitutional Constitutional: Denies fever(s) and Denies weakness Eyes Eyes: Reports system reviewed and no additional complaints, except as documented ENT Ears, Nose, Mouth, and Throat: Reports system reviewed and no additional complaints, except as documented Cardiovascular Cardiovascular: Denies chest pain, Denies dyspnea on exertion and Reports pedal edema Respiratory Respiratory: Reports system reviewed and no additional complaints, except as documented and Denies dyspnea on exertion Gastrointestinal Gastrointestinal: Reports constipation Genitourinary Genitourinary: Reports system reviewed and no additional complaints, except as documented Musculoskeletal Musculoskeletal: Reports arthralgias, Reports joint swelling and Reports limitedrange of motion Integumentary/Breasts Skin/Breast: Reports sores Neurologic Neurologic: Reports system reviewed and no additional complaints, except as documented and Denies weakness Psychiatric Psychiatric: Reports system reviewed and no additional complaints, except as documented Endocrine Endocrine: Reports system reviewed and no additional complaints, except as documented Hematologic/Lymphatic Hematologic/Lymphatic: Reports system reviewed and no additional complaints, except as documented Allergic/Immunologic Allergic/Immunologic: Reports system reviewed and no additional complaints, except as documented Exam <Cesilia Rosales APRN - Last Filed: 06/09/21 11:49> Physical Exam Vital Signs: Temp Pulse Resp BP Pulse Ox 98.0 F 64 16 98/66 L 95 06/09/21 05:00 06/09/21 07:58 06/09/21 07:52 06/09/21 07:52 06/09/21 07:52 Const General: cooperative, comfortable, no acute distress and well developed Nutritional Appearance: average body habitus Orientation: alert, awake and oriented x3 HEENT Head: normal to inspection, normocephalic and atraumatic Ears: hearing grossly normal bilaterally Mouth: oral mucosae normal Eyes General: appearance normal, both eyes and all related structures Visual Srivastava: normal visual srivastava by confrontation Pupils: PERRL EOM: EOM intact bilaterally Neck Neck: normal visual inspection, full ROM, no lymphadenopathy and trachea midline Chest Chest palpation & inspection: normal inspection of the chest Resp Effort & Inspection: normal respiratory effort, able to speak in complete sentences, symmetric chest movement, no audible wheezes and no cough Auscultation: clear to auscultation bilaterally Cardio Jugular venous pressure: no JVD Palpation: normal PMI Rate: regular rate Rhythm: regular rhythm Heart Sounds: S1 normal and S2 normal GI Inspection: normal to inspection Palpation: soft and no hepatosplenomegaly Auscultation: hyperactive bowel sounds Musc Cervical Spine: normal cervical lordosis and cervical ROM normal Skin Wounds: wounds noted Neuro General: patient alert, patient awake and patient oriented x3 Cranial Nerves: CN's II-XII intact bilaterally Cognition: normal cognition Speech: speech normal Motor: muscle tone normal throughout Sensory Exam: no sensory deficits noted Extrem General: capillary refill normal and edema Laterality: bilaterally (Foot and leg) Severity: pitting and 3+ Psych Appearance: grossly normal Mental Status: mental status grossly normal Mood: congruent mood Affect: normal affect Speech and Movement: speech and movement normal Attitude: cooperative Thought Process: normal Insight: fair Judgment: fair Objective <Cesilia Rosales APRN - Last Filed: 06/09/21 11:49> Labs CBC & Chem 7: 06/05/21 04:18 06/05/21 04:18 Medications and Allergies Allergies and Active Meds: Allergies mirtazapine Allergy (Severe, Verified 06/05/21 16:03) serotonin syndrome Active Medications Generic Name Dose Route Start Last Admin Trade Name Freq PRN Reason Stop Dose Admin Acetaminophen 500 mg 05/27/21 15:47 06/08/21 06:33 Acetaminophen 500 Mg Tablet PO 05/27/22 15:46 500 mg Q4H PRN Administration Pain Al Hydrox/Mg Hydrox/Simethicone 30 ml 05/27/21 15:47 05/28/21 22:01 Mag Hydrox/Al Hydrox/Simeth 30 Ml Udc PO 05/27/22 15:46 30 ml Q4H PRN Administration Indigestion Apixaban 5 mg 05/27/21 21:00 06/09/21 07:57 Apixaban 5 Mg Tablet PO 05/27/22 20:59 5 mg BID EARLENE Administration Ascorbic Acid 500 mg 05/27/21 17:00 06/09/21 07:54 Ascorbic Acid 500 Mg Tablet PO 05/27/22 16:59 500 mg BID.WITH.MEALS EARLENE Administration Bisacodyl 10 mg 05/27/21 15:47 Bisacodyl 10 Mg Supp.Rect [place] 05/27/22 15:46 DAILY PRN Constipation Calcium Carbonate 500 mg 05/27/21 17:00 06/09/21 07:54 Calcium Carbonate 500 Mg Tablet PO 05/27/22 16:59 500 mg BID.WITH.MEALS EARLENE Administration Digoxin 125 mcg 05/28/21 09:00 06/09/21 07:58 Digoxin 125 Mcg Tablet PO 05/28/22 08:59 125 mcg QAM EARLENE Administration Docusate Sodium 100 mg 05/27/21 15:47 06/05/21 08:31 Docusate 100 Mg Capsule PO 05/27/22 15:46 100 mg BID PRN Administration Constipation Docusate Sodium 283 mg 05/27/21 15:47 Docusate Enema 283 Mg/5 Ml Enema [place] 05/27/22 15:46 DAILY PRN Constipation Ferrous Sulfate 324 mg 06/05/21 16:15 06/09/21 07:57 Ferrous Sulfate 324 Mg Tablet.Dr PO 06/05/22 16:14 324 mg DAILY EARLENE Administration Finasteride 5 mg 05/28/21 09:00 06/09/21 07:57 Finasteride 5 Mg Tablet PO 05/28/22 08:59 5 mg QAM EARLENE Administration Gabapentin 300 mg 05/27/21 21:00 06/09/21 07:58 Gabapentin 300 Mg Capsule PO 05/27/22 20:59 300 mg BID EARLENE Administration Guaifenesin/Dextromethorphan 10 ml 05/27/21 16:25 Guaif/Dextromethorphan Syrup 10 Ml Udc PO 05/27/22 16:24 QID PRN Cough Hyoscyamine 0.125 mg 05/27/21 16:25 06/09/21 07:58 Hyoscyamine Sulfate 0.125 Mg Tab.Rapdis PO 0.125 mg QID PRN Administration Spasms Lact Acid/Bifidobact/Lact [place]/Streptoc Th 1 cap 05/28/21 09:00 06/09/21 07:57 L. Acidophilus/Strept/La P-Carlos 1 Cap Capsule PO 05/28/22 08:59 1 cap QAM EARLENE Administration Lactulose 30 gm 05/27/21 15:47 05/28/21 15:03 Lactulose 20 Gm/30 Ml Udc PO 05/27/22 15:46 30 gm DAILY PRN Administration Constipation Levetiracetam 500 mg 05/27/21 21:00 06/09/21 07:57 Levetiracetam 500 Mg Tablet PO 05/27/22 20:59 500 mg BID EARLENE Administration Levofloxacin 750 mg 06/08/21 10:30 06/09/21 07:58 Levofloxacin 750 Mg Tablet PO 06/18/21 10:29 750 mg DAILY EARLENE Administration Midodrine 10 mg 05/27/21 17:00 06/09/21 05:20 Midodrine 5 Mg Tablet PO 05/27/22 16:59 10 mg TID.7A.12P.5P EARLENE Administration Nystatin 1 applic 05/28/21 09:00 06/09/21 08:01 Nystatin 100,000 Unit/Gram Powder 15 Gm Bottle TOPICAL 05/28/22 08:59 1 applic DAILY EARLENE Administration Omeprazole 40 mg 05/28/21 09:00 06/09/21 07:57 Omeprazole 20 Mg Capsule.Dr PO 05/28/22 08:59 40 mg QAM EARLENE Administration Oxycodone HCl 5 mg 05/27/21 16:25 06/09/21 05:19 Oxycodone Ir 5 Mg Tablet PO 5 mg Q4HR PRN Administration Pain Scale 6 - 10 Sennosides 2 tab 05/28/21 12:00 06/08/21 13:03 Sennosides 8.6 Mg Tablet PO 05/28/22 11:59 Not Given DAILY@12 EARLENE Sodium Chloride 0 ml 05/27/21 15:47 Sodium Chloride 0.9 % 10 Ml Syringe IV-PUSH 05/27/22 15:46 PRN PRN Flush Sotalol HCl 60 mg 05/27/21 21:00 06/09/21 08:17 Sotalol 120 Mg Tablet PO 05/27/22 20:59 60 mg BID EARLENE Administration Tamsulosin HCl 0.4 mg 05/28/21 22:00 06/08/21 20:30 Tamsulosin 0.4 Mg Cap.Er.24h PO 05/28/22 21:59 0.4 mg QHS EARLENE Administration Vitamin D 50 mcg 05/28/21 09:00 06/09/21 07:57 Cholecalciferol 25 Mcg (1,000 Units) Tablet PO 05/28/22 08:59 50 mcg QAM EARLENE Administration Zinc Sulfate 220 mg 06/05/21 16:15 06/09/21 07:57 Zinc Sulfate 220 Mg Capsule PO 06/05/22 16:14 220 mg DAILY EARLENE Administration Assessment/Plan <Cesilia Rosales APRN - Last Filed: 06/09/21 11:49> Assessment/Plan (1) Impaired mobility and activities of daily living: Code(s): Z74.09 - Other reduced mobility; Z78.9 - Other specified health status Status: Acute (2) Pressure ulcer, stage 1: Code(s): L89.91 - Pressure ulcer of unspecified site, stage 1 Status: Acute (3) S/P total left hip arthroplasty: Code(s): Z96.642 - Presence of left artificial hip joint Status: Acute (4) BPH (benign prostatic hyperplasia): Code(s): N40.0 - Benign prostatic hyperplasia without lower urinary tract symptoms Status: Acute (5) Paroxysmal A-fib: Code(s): I48.0 - Paroxysmal atrial fibrillation Status: Acute (6) Coronary artery disease: Code(s): I25.10 - Atherosclerotic heart disease of [place] coronary artery without angina pectoris Status: Acute (7) Hyperlipidemia: Code(s): E78.5 - Hyperlipidemia, unspecified Status: Acute Plan Patient is a 75-year-old male admitted to the inpatient rehabilitation for functional decline status post total left knee arthroplasty complicated by new onset A. fib postop. He is in normal sinus rhythm and on current management. * Was seen by general surgery Dr. Matos yesterday afternoon. He does not recommend surgical debridement at this time. Continue current wound care, offload the pressure. He may follow-up with Dr. Rodriguez on outpatient basis. * Vital signs are stable. He remains afebrile. * Tentatively will discharge the patient back to [place] on . Family will transport. * Ambulates 30 feet with a wheeled walker standby assist, propels self in wheelchair for community distances Hospitalist to assist with management of comorbid medical conditions Pain control:Continue oxycodone for now Bowel and bladder: Maintain Ghotra. Flomax on hold due to lower blood pressure. This will need to be resumed when the Ghotra comes out. Skin: Continue wound care for pressure ulcer as ordered. DVT prophylaxis:Covered with Eliquis. Functional status:Walking 35 feet with therapy, contact-guard assist and wheelchair follow. Min to contact-guard for self-care. Discharge planning:Plan for DC end of week. I spent greater than 15 minutes for services, including [id number] encounter with the patient, discussion of the case, plan of care, and exam; and [id number] activities, such as reviewing pertinent consultant electronics documentation, recent therapy notes, laboratory and radiology studies, and discussion of case with care team including physician, nursing, case management director, and therapists. More than 50 % of time was spent on patient/family counseling or coordination ofcare. <Horace Palafox MD - Last Filed: 06/09/21 15:26> Assessment/Plan (1) Impaired mobility and activities of daily living: (2) Pressure ulcer, stage 1: (3) S/P total left hip arthroplasty: (4) BPH (benign prostatic hyperplasia): (5) Paroxysmal A-fib: (6) Coronary artery disease: (7) Hyperlipidemia: Plan: I completed a substantive portion of this encounter, the medical decision makingportion of this note in its entirety, including Allied health note review, nursing note review, consultant electronics note review, discussion with nursing and case management, and more than 50% of my time was spent on counseling and coordination of care, time spent 17 minutes Patient was personally seen by me, Dr. Palafox, on the day of encounter, reviewed the history and the relevant portions of the chart, including current orders, allied health and consultant electronics notes, labs/imaging and performed fletcher elements of exam and I formulated the plan of care and facilitated the medical decision making and confirmed the nurse practitioner note, as above Reviewed General surgery consult No role for debridement at this point Continue close observation Plan for discharge to snf facility, where he was residing prior, endof the week Ghotra to remain in place until outpatient f/u Documented By: Cesilia Rosales APRN 06/09/21 1 129 Signed By: <Electronically signed by CASIMIRO Rosales> 06/09/21 1149 <Electronically signed by Horace Palafox MD> 06/09/21 8172 [facility] Work Phone: 1(263) 332-143005-02-2022 Consult note Author Bennett Matos [facility] June 08, 2021 5:42pm Note Date/Time June 08, 2021 5:42pm [facility] [address] [place] [address] General Surgery Consult Note Signed Patient: Angella Pradhan MR#: [id number] : 1945 Acct:[id number] Age/Sex: 75 / M Adm Date: 2 Loc: Room: [address] [place] [address] Type : ADM IN Attending Dr: Horace Palafox MD Copies to: MD Horace Gonsalves MD Paul C Laffay,DO~ History of Present Illness Date of consult: 06/08/2021 Requesting/Attending Provider: Horace Palafox MD History of present illness: Patient had a hip replacement as well as urinary retention postoperatively, he was transferred to rehab and plan is for him to go to residential after that. He will be there until after he has his contralateral hip replaced. Patient said that he had been having some pain at his sacrum/coccyx, that is much betterwith treatment that he has been getting from the nursing staff. He is not having any pain with that at all currently. Review of Systems Review of Systems All other systems reviewed & are negative unless noted below or in HPI PMFSH Vaccinated for COVID-19?: Yes Medical History Arthritis BPH (benign prostatic hyperplasia) Coronary artery disease Hyperlipidemia Left hip pain Myocardial infarct Seizure single episode 01/31/21 Surgical History Hx of carpal tunnel repair right Hx of hernia repair Stented coronary artery 4 stents Family History Father H/O heart artery stent Mother Medical history unknown Social History Smoking Status: Former smoker Tobacco Type: cigarettes and pipe Substance Use Type: None Allergies & Medications Medications and Allergies Allergies mirtazapine Allergy (Severe, Verified 06/05/21 16:03) serotonin syndrome Home Medications L.acidop,casei,lactis,rham-B.lact,jas 625 mg (10 billion cell) capsule (AdvancedProbiotic) 1 cap PO QAM 05/05/21 [History Confirmed 05/27/21] cholecalciferol (vitamin D3) 50 mcg (2,000 unit) tablet (Vitamin D3) 50 mcg PO QAM 05/05/21 [History Confirmed 05/27/21] dextromethorphan-guaifenesin 10 mg-100 mg/5 mL oral syrup 10 ml PO QID PRN 05/05/21 [History Confirmed 05/27/21] finasteride 5 mg tablet 5 mg PO QAM 05/05/21 [History Confirmed 05/27/21] gabapentin 300 mg capsule 300 mg PO BID 05/05/21 [History Confirmed 05/27/21] hyoscyamine sulfate 0.125 mg tablet (Levsin) 0.125 mg PO QID PRN 05/05/21 [History Confirmed 05/27/21] levetiracetam 500 mg tablet (Keppra) 500 mg PO BID 05/05/21 [History Confirmed 05/27/21] nystatin 100,000 unit/gram topical powder 1 applic TOPICAL DAILY 05/05/21 [History Confirmed 05/27/21] omeprazole 40 mg capsule,delayed release 40 mg PO QAM 05/05/21 [History Confirmed 05/27/21] oxybutynin chloride 5 mg tablet 5 mg PO QAM 05/05/21 [History Confirmed 05/27/21] tamsulosin 0.4 mg capsule 0.4 mg PO QAM 05/05/21 [History Confirmed 05/27/21] aspirin 81 mg chewable tablet (Children's Aspirin) 81 mg PO BID #0 tab 05/22/21 [Rx Confirmed 05/27/21] oxycodone-acetaminophen 5 mg-325 mg tablet (Percocet) 1 tab PO Q6H PRN 7 Days #28 tab 05/22/21 [Rx] oxycodone-acetaminophen 5 mg-325 mg tablet (Percocet) 1 tab PO Q6H PRN 7 Days #28 tab 05/22/21 [Rx] ticagrelor 90 mg tablet 90 mg PO BID 05/22/21 [History Confirmed 05/22/21] apixaban 5 mg tablet (Eliquis) 5 mg PO BID tab 05/27/21 [Rx Confirmed 05/27/21] ascorbic acid (vitamin C) 500 mg tablet (Vitamin C) 500 mg PO BID.WITH.MEALS tab 05/27/21 [Rx Confirmed 05/27/21] calcium carbonate 500 mg calcium (1,250 mg) tablet 500 mg PO BID.WITH.MEALS 05/27/21 [History Confirmed 05/27/21] digoxin 125 mcg (0.125 mg) tablet 125 mcg PO QAM 05/27/21 [History Confirmed 05/27/21] midodrine 5 mg tablet 10 mg PO TID.7A.12P.5P tab 05/27/21 [Rx Confirmed 05/27/21] oxycodone 5 mg tablet 5 mg PO Q4HR PRN tab 05/27/21 [Rx Confirmed 05/27/21] sotalol 120 mg tablet (Sotalol AF) 60 mg PO BID tab 05/27/21 [Rx Confirmed 05/27/21] Active Medications Acetaminophen (Acetaminophen 500 Mg Tablet) 500 mg PO Q4H PRN PRN Reason: Pain Stop: 05/27/22 15:46 Last Admin: 06/08/21 06:33 Dose: 500 mg Documented by: Al Hydrox/Mg Hydrox/Simethicone (Mag Hydrox/Al Hydrox/Simeth 30 Ml Udc) 30 ml PO Q4H PRN PRN Reason: Indigestion Stop: 05/27/22 15:46 Last Admin: 05/28/21 22:01 Dose: 30 ml Documented by: Apixaban (Apixaban 5 Mg Tablet) 5 mg PO BID [facility] Stop: 05/27/22 20:59 Last Admin: 06/08/21 09:57 Dose: 5 mg Documented by: Ascorbic Acid (Ascorbic Acid 500 Mg Tablet) 500 mg PO BID.WITH.MEALS [facility] Stop: 05/27/22 16:59 Last Admin: 06/08/21 17:32 Dose: 500 mg Documented by: Bisacodyl (Bisacodyl 10 Mg Supp.Rect) 10 mg AZ DAILY PRN PRN Reason: Constipation Stop: 05/27/22 15:46 Calcium Carbonate (Calcium Carbonate 500 Mg Tablet) 500 mg PO BID.WITH.MEALS [facility] Stop: 05/27/22 16:59 Last Admin: 06/08/21 17:32 Dose: 500 mg Documented by: Digoxin (Digoxin 125 Mcg Tablet) 125 mcg PO QAM EARLENE Stop: 05/28/22 08:59 Last Admin: 06/08/21 09:56 Dose: 125 mcg Documented by: Docusate Sodium (Docusate 100 Mg Capsule) 100 mg PO BID PRN PRN Reason: Constipation Stop: 05/27/22 15:46 Last Admin: 06/05/21 08:31 Dose: 100 mg Documented by: Docusate Sodium (Docusate Enema 283 Mg/5 Ml Enema) 283 mg [place] DAILY PRN PRN Reason: Constipation Stop: 05/27/22 15:46 Ferrous Sulfate (Ferrous Sulfate 324 Mg Tablet.Dr) 324 mg PO DAILY [facility] Stop: 06/05/22 16:14 Last Admin: 06/08/21 09:57 Dose: 324 mg Documented by: Finasteride (Finasteride 5 Mg Tablet) 5 mg PO QAM [facility] Stop: 05/28/22 08:59 Last Admin: 06/08/21 09:59 Dose: 5 mg Documented by: Gabapentin (Gabapentin 300 Mg Capsule) 300 mg PO BID [facility] Stop: 05/27/22 20:59 Last Admin: 06/08/21 09:58 Dose: 300 mg Documented by: Guaifenesin/Dextromethorphan (Guaif/Dextromethorphan Syrup 10 Ml Udc) 10 ml PO QID PRN PRN Reason: Cough Stop: 05/27/22 16:24 Hyoscyamine (Hyoscyamine Sulfate 0.125 Mg Tab.Rapdis) 0.125 mg PO QID PRN PRN Reason: Spasms Last Admin: 06/07/21 23:02 Dose: 0.125 mg Documented by: Lact Acid/Bifidobact/Lact Paracas/Streptoc Th (L. Acidophilus/Strept/La P-Carlos 1 Cap Capsule) 1 cap PO QAM EARLENE Stop: 05/28/22 08:59 Last Admin: 06/08/21 09:57 Dose: 1 cap Documented by: Lactulose (Lactulose 20 Gm/30 Ml Udc) 30 gm PO DAILY PRN PRN Reason: Constipation Stop: 05/27/22 15:46 Last Admin: 05/28/21 15:03 Dose: 30 gm Documented by: Levetiracetam (Levetiracetam 500 Mg Tablet) 500 mg PO BID EARLENE Stop: 05/27/22 20:59 Last Admin: 06/08/21 09:58 Dose: 500 mg Documented by: Levofloxacin (Levofloxacin 750 Mg Tablet) 750 mg PO DAILY EARLENE Stop: 06/18/21 10:29 Last Admin: 06/08/21 10:19 Dose: 750 mg Documented by: Midodrine (Midodrine 5 Mg Tablet) 10 mg PO TID.7A.12P.5P EARLENE Stop: 05/27/22 16:59 Last Admin: 06/08/21 17:32 Dose: 10 mg Documented by: Nystatin (Nystatin 100,000 Unit/Gram Powder 15 Gm Bottle) 1 applic TOPICAL DAILY EARLENE Stop: 05/28/22 08:59 Last Admin: 06/08/21 10:36 Dose: 1 applic Documented by: Omeprazole (Omeprazole 20 Mg Capsule.Dr) 40 mg PO QAM [facility] Stop: 05/28/22 08:59 Last Admin: 06/08/21 09:57 Dose: 40 mg Documented by: Oxycodone HCl (Oxycodone Ir 5 Mg Tablet) 5 mg PO Q4HR PRN PRN Reason: Pain Scale 6 - 10 Last Admin: 06/07/21 20:06 Dose: 5 mg Documented by: Sennosides (Sennosides 8.6 Mg Tablet) 2 tab PO DAILY@12 EARLENE Stop: 05/28/22 11:59 Last Admin: 06/08/21 13:03 Dose: Not Given Documented by: Sodium Chloride (Sodium Chloride 0.9 % 10 Ml Syringe) 0 ml IV-PUSH PRN PRN PRN Reason: Flush Stop: 05/27/22 15:46 Sotalol HCl (Sotalol 120 Mg Tablet) 60 mg PO BID EARLENE Stop: 05/27/22 20:59 Last Admin: 06/08/21 09:57 Dose: 60 mg Documented by: Tamsulosin HCl (Tamsulosin 0.4 Mg Cap.Er.24h) 0.4 mg PO QHS [facility] Stop: 05/28/22 21:59 Last Admin: 06/07/21 20:06 Dose: 0.4 mg Documented by: Vitamin D (Cholecalciferol 25 Mcg (1,000 Units) Tablet) 50 mcg PO QAM [facility] Stop: 05/28/22 08:59 Last Admin: 06/08/21 09:56 Dose: 50 mcg Documented by: Zinc Sulfate (Zinc Sulfate 220 Mg Capsule) 220 mg PO DAILY [facility] Stop: 06/05/22 16:14 Last Admin: 06/08/21 09:57 Dose: 220 mg Documented by: Exam Physical Exam Vital Signs: Temp Pulse Resp BP Pulse Ox 97.5 F L 63 16 109/70 97 06/08/21 16:00 06/08/21 16:00 06/08/21 16:00 06/08/21 16:00 06/08/21 16:00 Narrative: Is comfortable pleasant conversive totally nontoxic. Heart is regular rate. Lungs are clear. Abdomen is soft nontender nondistended. Examining patient while standing he does have a stage II sacral decubitus approximately 4 x 2 cm in size at the upper aspect of the anal verge. There is no fluctuance or necrotic tissue. There is small amount of fibrinous exudate over the wound itself. That was scraped away. This does not extend towards the anus. He has no pain with exam of this. Results Pain Assessment Left Hip: Pain Description: Soreness Pain Intensity: 3 Back: Pain Description: Soreness Pain Intensity: 5 Right Hip: Pain Description: Acute Pain Intensity: 3 Buttock: Pain Intensity: 2 Coccyx: Pain Description: Aching and Soreness Pain Intensity: 3 Intake and Output 24 hour I&O: Intake & Output 06/08/21 06/08/21 06/08/21 07:59 15:59 23:59 Intake Total 325 / 325 Output Total 1100 / 1350 250 / 1350 Balance -775 / -1025 -250 / -1025 Weight 95 kg Labs CBC & Chem 7: 06/05/21 04:18 06/05/21 04:18 Microbiology Microbiology - Results from entire visit 06/05/21 12:10 Coccyx - Decubitus Aerobic Culture - Final Citrobacter freundii Pseudomonas aeruginosa 06/05/21 12:10 Coccyx - Decubitus Anaerobic Culture - Preliminary 06/05/21 12:10 Coccyx - Decubitus Gram Stain - Final A&P - General Surgery (1) Pressure injury of coccygeal region, stage 2: Plan: Pressure ulcer without any necrotic tissue. Does not require any urgent debridement or debridement at present. Continue with local care. Offloading isthe most important aspect of his care and nursing staff is doing that. He can follow-up with my partner Dr. Rodriguez in the wound care office for long-term follow-up. If this worsens and needs any inpatient debridement please contact me for reevaluation otherwise I will sign off Code(s): L89.152 - Pressure ulcer of sacral region, stage 2 Status: Acute Documented By: Bennett Matos DO 06/08/21 1738 Signed By: <Electronically signed by DO Bennett Matos> 06/08/21 7245 [facility] Work Phone: 1([phone]) 848-785105-02-2022 Progress note Author Horace Palafox [facility] June 08, 2021 1:41pm Note Date/Time June 08, 2021 12:21p m [facility] [address] [place] [address] Physiatry(Rehab) Progress Note Signed Patient: Angella Pradhan MR#: [id number] : 1945 Acct:[id number] Age/Sex: 75 / M Adm Date: 2 Loc: Room: [address] [place] [address] Type : ADM IN Attending Dr: Horace Palafox MD Copies to: ~ <Cesilia Rosales APRN - Last Filed: 06/08/21 12:42> Date of Service: 06/08/2021 Subjective <Cesilia Rosales APRN - Last Filed: 06/08/21 12:42> Subjective Narrative: Mr. Pradhan is a 75 year old male with a past medical history of arthritis, BPH,CAD, MO s/p coronary artery stenting, who is admitted to rehabilitation for functional decline status post elective left total hip arthroplasty. He reports a longstanding history of bilateral hip pain as a result of [id number] . The surgery was planned to be performed sometime last year however he sustained a myocardial infarction in July 2020, which required stenting and resulted in prolonged recovery. He has been residing at [facility] since his heart attack. He is telling me as soon as he is finishedwith rehabilitation and medically cleared by cardiology, he will have his right hip replaced also. Postop course was complicated by a new onset atrial fibrillation which spontaneously converted to a.fib. Cardiology was consulted. He was placed on Eliquis and Sotalol. He remains in normal sinus rhythm on current therapy. On admission to rehab patient still has a Ghotra catheter. Reports inability to void after catheter removal postop due to past history of prostate hypertrophy. Catheter is draining clear yellow urine denies any pain or discomfort. We will attempt a voiding trial in the near future, if unsuccessful will have him evaluated by urology outpatient. Left hip incision is well approximated with anand intact. There is moderate amount of serous drainage from the incision. No erythema, induration, local tenderness is appreciated on exam. He also developed a pressure injury to his coccyx, likely due to incontinence. We will have wound care follow. He plans to return back to [facility] at discharge. At baseline he isambulatory with a walker, also uses electric scooter for community distances. Interval history: He is doing well, no acute events over the weekend. States, pressure ulcer is actually less painful today. Wound care will be in toreevaluate the appearance of the wound. Discussed discharge planning. Tentatively, he will go back to [place] at the end of the week. This may change based on the appearance of the pressure ulcer and its healing progress today, and whether it might require surgical debridement. He ambulates 50 feet x 2 with a wheeled walker and contact-guard assist. Propels self in a wheelchair 500 feet using bilateral upper extremities. Review of Systems <Cesilia Rosales APRN - Last Filed: 06/08/21 12:42> Constitutional Constitutional: Denies fever(s) and Denies weakness Eyes Eyes: Reports system reviewed and no additional complaints, except as documented ENT Ears, Nose, Mouth, and Throat: Reports system reviewed and no additional complaints, except as documented Cardiovascular Cardiovascular: Denies chest pain, Denies dyspnea on exertion and Reports pedal edema Respiratory Respiratory: Reports system reviewed and no additional complaints, except as documented and Denies dyspnea on exertion Gastrointestinal Gastrointestinal: Reports constipation Genitourinary Genitourinary: Reports system reviewed and no additional complaints, except as documented Musculoskeletal Musculoskeletal: Reports arthralgias, Reports joint swelling and Reports limitedrange of motion Integumentary/Breasts Skin/Breast: Reports sores Neurologic Neurologic: Reports system reviewed and no additional complaints, except as documented and Denies weakness Psychiatric Psychiatric: Reports system reviewed and no additional complaints, except as documented Endocrine Endocrine: Reports system reviewed and no additional complaints, except as documented Hematologic/Lymphatic Hematologic/Lymphatic: Reports system reviewed and no additional complaints, except as documented Allergic/Immunologic Allergic/Immunologic: Reports system reviewed and no additional complaints, except as documented Exam <Cesilia Rosales, DRY PLACER MACHINE OPERATOR - Last Filed: 06/08/21 12:42> Physical Exam Vital Signs: Temp Pulse Resp BP Pulse Ox 97.9 F 61 16 118/71 96 06/08/21 05:00 06/08/21 09:56 06/08/21 05:00 06/08/21 05:00 06/08/21 05:00 Const General: cooperative, comfortable, no acute distress and well developed Nutritional Appearance: average body habitus Orientation: alert, awake and oriented x3 HEENT Head: normal to inspection, normocephalic and atraumatic Ears: hearing grossly normal bilaterally Mouth: oral mucosae normal Eyes General: appearance normal, both eyes and all related structures Visual Srivastava: normal visual srivastava by confrontation Pupils: PERRL EOM: EOM intact bilaterally Neck Neck: normal visual inspection, full ROM, no lymphadenopathy and trachea midline Chest Chest palpation & inspection: normal inspection of the chest Resp Effort & Inspection: normal respiratory effort, able to speak in complete sentences, symmetric chest movement, no audible wheezes and no cough Auscultation: clear to auscultation bilaterally Cardio Jugular venous pressure: no JVD Palpation: normal PMI Rate: regular rate Rhythm: regular rhythm Heart Sounds: S1 normal and S2 normal GI Inspection: normal to inspection Palpation: soft and no hepatosplenomegaly Auscultation: hyperactive bowel sounds Musc Cervical Spine: normal cervical lordosis and cervical ROM normal Skin Wounds: wounds noted Neuro General: patient alert, patient awake and patient oriented x3 Cranial Nerves: CN's II-XII intact bilaterally Cognition: normal cognition Speech: speech normal Motor: muscle tone normal throughout Sensory Exam: no sensory deficits noted Extrem General: capillary refill normal and edema Laterality: bilaterally (Foot and leg) Severity: pitting and 3+ Psych Appearance: grossly normal Mental Status: mental status grossly normal Mood: congruent mood Affect: normal affect Speech and Movement: speech and movement normal Attitude: cooperative Thought Process: normal Insight: fair Judgment: fair Objective <Cesilia Rosales, DRY PLACER MACHINE OPERATOR - Last Filed: 06/08/21 12:42> Labs CBC & Chem 7: 06/05/21 04:18 06/05/21 04:18 Medications and Allergies Allergies and Active Meds: Allergies mirtazapine Allergy (Severe, Verified 06/05/21 16:03) serotonin syndrome Active Medications Generic Name Dose Route Start Last Admin Trade Name Freq PRN Reason Stop Dose Admin Acetaminophen 500 mg 05/27/21 15:47 06/08/21 06:33 Acetaminophen 500 Mg Tablet PO 05/27/22 15:46 500 mg Q4H PRN Administration Pain Al Hydrox/Mg Hydrox/Simethicone 30 ml 05/27/21 15:47 05/28/21 22:01 Mag Hydrox/Al Hydrox/Simeth 30 Ml Udc PO 05/27/22 15:46 30 ml Q4H PRN Administration Indigestion Apixaban 5 mg 05/27/21 21:00 06/08/21 09:57 Apixaban 5 Mg Tablet PO 05/27/22 20:59 5 mg BID EARLENE Administration Ascorbic Acid 500 mg 05/27/21 17:00 06/08/21 09:56 Ascorbic Acid 500 Mg Tablet PO 05/27/22 16:59 500 mg BID.WITH.MEALS EARLENE Administration Bisacodyl 10 mg 05/27/21 15:47 Bisacodyl 10 Mg Supp.Rect AZ 05/27/22 15:46 DAILY PRN Constipation Calcium Carbonate 500 mg 05/27/21 17:00 06/08/21 09:57 Calcium Carbonate 500 Mg Tablet PO 05/27/22 16:59 500 mg BID.WITH.MEALS EARLENE Administration Digoxin 125 mcg 05/28/21 09:00 06/08/21 09:56 Digoxin 125 Mcg Tablet PO 05/28/22 08:59 125 mcg QAM EARLENE Administration Docusate Sodium 100 mg 05/27/21 15:47 06/05/21 08:31 Docusate 100 Mg Capsule PO 05/27/22 15:46 100 mg BID PRN Administration Constipation Docusate Sodium 283 mg 05/27/21 15:47 Docusate Enema 283 Mg/5 Ml Enema AZ 05/27/22 15:46 DAILY PRN Constipation Ferrous Sulfate 324 mg 06/05/21 16:15 06/08/21 09:57 Ferrous Sulfate 324 Mg Tablet.Dr PO 06/05/22 16:14 324 mg DAILY EARLENE Administration Finasteride 5 mg 05/28/21 09:00 06/08/21 09:59 Finasteride 5 Mg Tablet PO 05/28/22 08:59 5 mg QAM EARLENE Administration Gabapentin 300 mg 05/27/21 21:00 06/08/21 09:58 Gabapentin 300 Mg Capsule PO 05/27/22 20:59 300 mg BID EARLENE Administration Guaifenesin/Dextromethorphan 10 ml 05/27/21 16:25 Guaif/Dextromethorphan Syrup 10 Ml Udc PO 05/27/22 16:24 QID PRN Cough Hyoscyamine 0.125 mg 05/27/21 16:25 06/07/21 23:02 Hyoscyamine Sulfate 0.125 Mg Tab.Rapdis PO 0.125 mg QID PRN Administration Spasms Lact Acid/Bifidobact/Lact [place]/Streptoc Th 1 cap 05/28/21 09:00 06/08/21 09:57 L. Acidophilus/Strept/[place] P-Carlos 1 Cap Capsule PO 05/28/22 08:59 1 cap QAM EARLENE Administration Lactulose 30 gm 05/27/21 15:47 05/28/21 15:03 Lactulose 20 Gm/30 Ml Udc PO 05/27/22 15:46 30 gm DAILY PRN Administration Constipation Levetiracetam 500 mg 05/27/21 21:00 06/08/21 09:58 Levetiracetam 500 Mg Tablet PO 05/27/22 20:59 500 mg BID EARLENE Administration Levofloxacin 750 mg 06/08/21 10:30 06/08/21 10:19 Levofloxacin 750 Mg Tablet PO 750 mg DAILY EARLENE Administration Midodrine 10 mg 05/27/21 17:00 06/08/21 06:33 Midodrine 5 Mg Tablet PO 05/27/22 16:59 10 mg TID.7A.12P.5P EARLENE Administration Nystatin 1 applic 05/28/21 09:00 06/08/21 10:36 Nystatin 100,000 Unit/Gram Powder 15 Gm Bottle TOPICAL 05/28/22 08:59 1 applic DAILY EARLENE Administration Omeprazole 40 mg 05/28/21 09:00 06/08/21 09:57 Omeprazole 20 Mg Capsule.Dr PO 05/28/22 08:59 40 mg QAM EARLENE Administration Oxycodone HCl 5 mg 05/27/21 16:25 06/07/21 20:06 Oxycodone Ir 5 Mg Tablet PO 5 mg Q4HR PRN Administration Pain Scale 6 - 10 Sennosides 2 tab 05/28/21 12:00 06/07/21 11:20 Sennosides 8.6 Mg Tablet PO 05/28/22 11:59 Not Given DAILY@12 EARLENE Sodium Chloride 0 ml 05/27/21 15:47 Sodium Chloride 0.9 % 10 Ml Syringe IV-PUSH 05/27/22 15:46 PRN PRN Flush Sotalol HCl 60 mg 05/27/21 21:00 06/08/21 09:57 Sotalol 120 Mg Tablet PO 05/27/22 20:59 60 mg BID EARLENE Administration Tamsulosin HCl 0.4 mg 05/28/21 22:00 06/07/21 20:06 Tamsulosin 0.4 Mg Cap.Er.24h PO 05/28/22 21:59 0.4 mg QHS EARLENE Administration Vitamin D 50 mcg 05/28/21 09:00 06/08/21 09:56 Cholecalciferol 25 Mcg (1,000 Units) Tablet PO 05/28/22 08:59 50 mcg QAM EARLENE Administration Zinc Sulfate 220 mg 06/05/21 16:15 06/08/21 09:57 Zinc Sulfate 220 Mg Capsule PO 06/05/22 16:14 220 mg DAILY EARLENE Administration Assessment/Plan <Cesilia Roslaes, DRY PLACER MACHINE OPERATOR - Last Filed: 06/08/21 12:42> Assessment/Plan (1) Impaired mobility and activities of daily living: Code(s): Z74.09 - Other reduced mobility; Z78.9 - Other specified health status Status: Acute (2) Pressure ulcer, stage 1: Code(s): L89.91 - Pressure ulcer of unspecified site, stage 1 Status: Acute (3) S/P total left hip arthroplasty: Code(s): Z96.642 - Presence of left artificial hip joint Status: Acute (4) BPH (benign prostatic hyperplasia): Code(s): N40.0 - Benign prostatic hyperplasia without lower urinary tract symptoms Status: Acute (5) Paroxysmal A-fib: Code(s): I48.0 - Paroxysmal atrial fibrillation Status: Acute (6) Coronary artery disease: Code(s): I25.10 - Atherosclerotic heart disease of [place] coronary artery without angina pectoris Status: Acute (7) Hyperlipidemia: Code(s): E78.5 - Hyperlipidemia, unspecified Status: Acute Plan Patient is a 75-year-old male admitted to the inpatient rehabilitation for functional decline status post total left knee arthroplasty complicated by new onset A. fib postop. He is in normal sinus rhythm and on current management. * Patient was placed on Keflex for worsening decubitus ulcer by hospitalist BILINGUAL TEACHER ASSISTANT. Final wound culture obtained on 06/05/2021 demonstrates Citrobacter freundii and Pseudomonas aeruginosa organisms, both resistant to Keflex. Although culture only demonstrates light growth of both organisms, based on overall worsening of the wound and concerning foul-smelling drainage, he would benefit from continued antibiotic therapy. Will start him levofloxacin 750 mg daily for 10 days. * Wound care nurse will reevaluate the pressure ulcer today. If no improvement in wound appearance, we'll consult gensurg for surgical debridement of the wound. * Walks short distances with a walker and contact-guard assist. Propels self in wheelchair for functional mobility. * Will maintain Ghotra catheter for now to assist with wound healing. Flomax was resumed yesterday due to complaints of bladder spasms and urine leakage around the catheter. Hospitalist to assist with management of comorbid medical conditions Pain control:Continue oxycodone for now Bowel and bladder: Maintain Ghotra. Flomax on hold due to lower blood pressure. This will need to be resumed when the Ghotra comes out. Skin: Continue wound care for pressure ulcer as ordered. DVT prophylaxis:Covered with Eliquis. Functional status:Walking 35 feet with therapy, contact-guard assist and wheelchair follow. Min to contact-guard for self-care. Discharge planning:Plan for DC next week to the [place]. I spent greater than 15 minutes for services, including [id number] encounter with the patient, discussion of the case, plan of care, and exam; and [id number] activities, such as reviewing pertinent consultant electronics documentation, recent therapy notes, laboratory and radiology studies, and discussion of case with care team including physician, nursing, case management director, and therapists. More than 50 % of time was spent on patient/family counseling or coordination ofcare. <Horace Palafox MD - Last Filed: 06/08/21 13:41> Assessment/Plan (1) Impaired mobility and activities of daily living: (2) Pressure ulcer, stage 1: (3) S/P total left hip arthroplasty: (4) BPH (benign prostatic hyperplasia): (5) Paroxysmal A-fib: (6) Coronary artery disease: (7) Hyperlipidemia: Plan Patient is a 75-year-old male admitted to the inpatient rehabilitation for functional decline status post total left knee arthroplasty complicated by new onset A. fib postop. He is in normal sinus rhythm and on current management. * Patient was placed on Keflex for worsening decubitus ulcer by hospitalist BILINGUAL TEACHER ASSISTANT. Final wound culture obtained on 06/05/2021 demonstrates Citrobacter freundii and Pseudomonas aeruginosa organisms, both resistant to Keflex. Although culture only demonstrates light growth of both organisms, based on overall worsening of the wound and concerning foul-smelling drainage, he would benefit from continued antibiotic therapy. Will start him levofloxacin 750 mg daily for 10 days. * Wound care nurse will reevaluate the pressure ulcer today. If no improvement in wound appearance, we'll consult gensurg for surgical debridement of the wound. * Walks short distances with a walker and contact-guard assist. Propels self in wheelchair for functional mobility. * Will maintain Ghotra catheter for now to assist with wound healing. Flomax was resumed yesterday due to complaints of bladder spasms and urine leakage around the catheter. Hospitalist to assist with management of comorbid medical conditions Pain control:Continue oxycodone for now Bowel and bladder: Maintain Ghotra. Flomax on hold due to lower blood pressure. This will need to be resumed when the Ghotra comes out. Skin: Continue wound care for pressure ulcer as ordered. DVT prophylaxis:Covered with Eliquis. Functional status:Walking 35 feet with therapy, contact-guard assist and wheelchair follow. Min to contact-guard for self-care. Discharge planning:Plan for DC end of week. I spent greater than 15 minutes for services, including [id number] encounter with the patient, discussion of the case, plan of care, and exam; and [id number] activities, such as reviewing pertinent consultant electronics documentation, recent therapy notes, laboratory and radiology studies, and discussion of case with care team including physician, nursing, case management director, and therapists. More than 50 % of time was spent on patient/family counseling or coordination ofcare. Plan: I completed a substantive portion of this encounter, the medical decision makingportion of this note in its entirety, including Allied health note review, nursing note review, consultant electronics note review, discussion with nursing and case management, and more than 50% of my time was spent on counseling and coordination of care, time spent 16 minutes Patient was personally seen by me, Dr. Palafox, on the day of encounter, reviewed the history and the relevant portions of the chart, including current orders, allied health and consultant electronics notes, labs/imaging and performed fletcher elements of exam and I formulated the plan of care and facilitated the medical decision making and confirmed the nurse practitioner note, as above Continue antibiotics as ordered. Cultures reviewed Wound care to follow today May need general surgery consult for debridement before discharge, which is set for or Tuesday this week. Documented By: Cesilia Rosales APRN 06/08/21 1 218 Signed By: <Electronically signed by CASIMIRO Rosales> 06/08/21 1243 <Electronically signed by Horace Palafox MD> 06/08/21 1341 [facility] Work Phone: 1(273) 646-323905-02-2022 Progress note Author Horace Palafox [facility] June 08, 2021 1:32pm Note Date/Time June 05, 2021 1:4 4pm [facility] [address] [place] [address] Physiatry(Rehab) Progress Note Signed Patient: Angella Pradhan MR#: [id number] : 1945 Acct:[id number] Age/Sex: 75 / M Adm Date: 2 Loc: Room: 7V5406-9 Type : ADM IN Attending Dr: Horace Palafox MD Copies to: ~ <Cesilia Rosales APRN - Last Filed: 06/05/21 13:55> Date of Service: 06/05/2021 Subjective <Cesilia Rosales, DRY PLACER MACHINE OPERATOR - Last Filed: 06/05/21 13:55> Subjective Narrative: Mr. Pradhan is a 75 year old male with a past medical history of arthritis, BPH,CAD, [place] s/p coronary artery stenting, who is admitted to rehabilitation for functional decline status post elective left total hip arthroplasty. He reports a longstanding history of bilateral hip pain as a result of [id number] . The surgery was planned to be performed sometime last year however he sustained a myocardial infarction in July 2020, which required stenting and resulted in prolonged recovery. He has been residing at [facility] since his heart attack. He is telling me as soon as he is finishedwith rehabilitation and medically cleared by cardiology, he will have his right hip replaced also. Postop course was complicated by a new onset atrial fibrillation which spontaneously converted to a.fib. Cardiology was consulted. He was placed on Eliquis and Sotalol. He remains in normal sinus rhythm on current therapy. On admission to rehab patient still has a Ghotra catheter. Reports inability to void after catheter removal postop due to past history of prostate hypertrophy. Catheter is draining clear yellow urine denies any pain or discomfort. We will attempt a voiding trial in the near future, if unsuccessful will have him evaluated by urology outpatient. Left hip incision is well approximated with anand intact. There is moderate amount of serous drainage from the incision. No erythema, induration, local tenderness is appreciated on exam. He also developed a pressure injury to his coccyx, likely due to incontinence. We will have wound care follow. He plans to return back to [facility] at discharge. At baseline he isambulatory with a walker, also uses electric scooter for community distances. Interval history: Nursing reported worsening appearance of the coccyx decubitus ulcer. There is yellow sloughing, with foul-smelling discharge, surrounding erythema and induration. He is complaining of increasing pain to the site. Wound care nurse was reconsulted and will evaluate later today. Will also have the hospitalist team follow the patient. Otherwise he is doing well. His vital signs are stable, he is afebrile. Continues to tolerate therapy. He is able to propel self 500 feet in a wheelchair using bilateral upper extremities. Ambulates multiple short distances with a wheeled walker and contact-guard assist. Review of Systems <Cesilia HogueDIANE grecoN - Last Filed: 06/05/21 13:55> Constitutional Constitutional: Denies fever(s) and Denies weakness Eyes Eyes: Reports system reviewed and no additional complaints, except as documented ENT Ears, Nose, Mouth, and Throat: Reports system reviewed and no additional complaints, except as documented Cardiovascular Cardiovascular: Denies chest pain, Denies dyspnea on exertion and Reports pedal edema Respiratory Respiratory: Reports system reviewed and no additional complaints, except as documented and Denies dyspnea on exertion Gastrointestinal Gastrointestinal: Reports constipation Genitourinary Genitourinary: Reports system reviewed and no additional complaints, except as documented Musculoskeletal Musculoskeletal: Reports arthralgias, Reports joint swelling and Reports limitedrange of motion Integumentary/Breasts Skin/Breast: Reports sores Neurologic Neurologic: Reports system reviewed and no additional complaints, except as documented and Denies weakness Psychiatric Psychiatric: Reports system reviewed and no additional complaints, except as documented Endocrine Endocrine: Reports system reviewed and no additional complaints, except as documented Hematologic/Lymphatic Hematologic/Lymphatic: Reports system reviewed and no additional complaints, except as documented Allergic/Immunologic Allergic/Immunologic: Reports system reviewed and no additional complaints, except as documented Exam <Cesilia Hogueangus, DRY PLACER MACHINE OPERATOR - Last Filed: 06/05/21 13:55> Physical Exam Vital Signs: Temp Pulse Resp BP Pulse Ox 97.9 F 63 16 108/74 95 06/05/21 04:57 06/05/21 08:31 06/05/21 04:57 06/05/21 08:29 06/05/21 05:15 Const General: cooperative, comfortable, no acute distress and well developed Nutritional Appearance: average body habitus Orientation: alert, awake and oriented x3 HEENT Head: normal to inspection, normocephalic and atraumatic Ears: hearing grossly normal bilaterally Mouth: oral mucosae normal Eyes General: appearance normal, both eyes and all related structures Visual Srivastava: normal visual srivastava by confrontation Pupils: PERRL EOM: EOM intact bilaterally Neck Neck: normal visual inspection, full ROM, no lymphadenopathy and trachea midline Chest Chest palpation & inspection: normal inspection of the chest Resp Effort & Inspection: normal respiratory effort, able to speak in complete sentences, symmetric chest movement, no audible wheezes and no cough Auscultation: clear to auscultation bilaterally Cardio Jugular venous pressure: no JVD Palpation: normal PMI Rate: regular rate Rhythm: regular rhythm Heart Sounds: S1 normal and S2 normal GI Inspection: normal to inspection Palpation: soft and no hepatosplenomegaly Auscultation: hyperactive bowel sounds Musc Cervical Spine: normal cervical lordosis and cervical ROM normal Skin Wounds: wounds noted Neuro General: patient alert, patient awake and patient oriented x3 Cranial Nerves: CN's II-XII intact bilaterally Cognition: normal cognition Speech: speech normal Motor: muscle tone normal throughout Sensory Exam: no sensory deficits noted Extrem General: capillary refill normal and edema Laterality: bilaterally (Foot and leg) Severity: pitting and 3+ Psych Appearance: grossly normal Mental Status: mental status grossly normal Mood: congruent mood Affect: normal affect Speech and Movement: speech and movement normal Attitude: cooperative Thought Process: normal Insight: fair Judgment: fair Objective <Cesilia Rosales APRN - Last Filed: 06/05/21 13:55> Labs CBC & Chem 7: 06/05/21 04:18 06/05/21 04:18 Labs: Laboratory Results - last 24 hr 06/05/21 06/05/21 04:18 04:18 Corrected WBC 8.9 Uncorrected WBC Count 8.9 RBC 3.71 L Hgb 10.3 L Hct 31.6 L MCV 85.3 MCH 27.7 MCHC 32.5 RDW 14.6 Plt Count 665 H MPV 6.2 L Neut % (Auto) 52.3 Lymph % (Auto) 25.2 Sumner % (Auto) 15.2 Eos % (Auto) 6.4 Baso % (Auto) 0.9 Neut # (Auto) 4.7 Lymph # (Auto) 2.2 Sumner # (Auto) 1.3 H Eos # (Auto) 0.6 H Baso # (Auto) 0.1 Nucleated RBC % (auto) 0.0 PHA Creatinine Clear 82.34 Sodium 137 Potassium 4.1 Chloride 101 Carbon Dioxide 27.5 BUN 9 Creatinine 0.69 Est GFR ( Amer) > 60 Est GFR (Non-Af Amer) > 60 Glucose 102 H Calcium 8.3 Medications and Allergies Allergies and Active Meds: Allergies No Known Allergies Allergy (Verified 05/05/21 16:03) Active Medications Generic Name Dose Route Start Last Admin Trade Name Freq PRN Reason Stop Dose Admin Acetaminophen 500 mg 05/27/21 15:47 06/05/21 02:08 Acetaminophen 500 Mg Tablet PO 05/27/22 15:46 500 mg Q4H PRN Administration Pain Al Hydrox/Mg Hydrox/Simethicone 30 ml 05/27/21 15:47 05/28/21 22:01 Mag Hydrox/Al Hydrox/Simeth 30 Ml Udc PO 05/27/22 15:46 30 ml Q4H PRN Administration Indigestion Apixaban 5 mg 05/27/21 21:00 06/05/21 08:32 Apixaban 5 Mg Tablet PO 05/27/22 20:59 5 mg BID EARLENE Administration Ascorbic Acid 500 mg 05/27/21 17:00 06/05/21 08:31 Ascorbic Acid 500 Mg Tablet PO 05/27/22 16:59 500 mg BID.WITH.MEALS EARLENE Administration Bisacodyl 10 mg 05/27/21 15:47 Bisacodyl 10 Mg Supp.Rect [place] 05/27/22 15:46 DAILY PRN Constipation Calcium Carbonate 500 mg 05/27/21 17:00 06/05/21 08:32 Calcium Carbonate 500 Mg Tablet PO 05/27/22 16:59 500 mg BID.WITH.MEALS EARLENE Administration Digoxin 125 mcg 05/28/21 09:00 06/05/21 08:31 Digoxin 125 Mcg Tablet PO 05/28/22 08:59 125 mcg QAM EARLENE Administration Docusate Sodium 100 mg 05/27/21 15:47 06/05/21 08:31 Docusate 100 Mg Capsule PO 05/27/22 15:46 100 mg BID PRN Administration Constipation Docusate Sodium 283 mg 05/27/21 15:47 Docusate Enema 283 Mg/5 Ml Enema [place] 05/27/22 15:46 DAILY PRN Constipation Finasteride 5 mg 05/28/21 09:00 06/05/21 08:32 Finasteride 5 Mg Tablet PO 05/28/22 08:59 5 mg QAM EARLENE Administration Gabapentin 300 mg 05/27/21 21:00 06/05/21 08:32 Gabapentin 300 Mg Capsule PO 05/27/22 20:59 300 mg BID EARLENE Administration Guaifenesin/Dextromethorphan 10 ml 05/27/21 16:25 Guaif/Dextromethorphan Syrup 10 Ml Udc PO 04/20/23 16:24 QID PRN Cough Hyoscyamine 0.125 mg 05/27/21 16:25 Hyoscyamine Sulfate 0.125 Mg Tab.Rapdis PO QID PRN Spasms Lact Acid/Bifidobact/Lact [place]/Streptoc Th 1 cap 05/28/21 09:00 06/05/21 08:32 L. Acidophilus/Strept/La P-Carlos 1 Cap Capsule PO 05/28/22 08:59 1 cap QAM EARLENE Administration Lactulose 30 gm 05/27/21 15:47 05/28/21 15:03 Lactulose 20 Gm/30 Ml Udc PO 05/27/22 15:46 30 gm DAILY PRN Administration Constipation Levetiracetam 500 mg 05/27/21 21:00 06/05/21 08:31 Levetiracetam 500 Mg Tablet PO 05/27/22 20:59 500 mg BID EARLENE Administration Midodrine 10 mg 05/27/21 17:00 06/05/21 13:36 Midodrine 5 Mg Tablet PO 05/27/22 16:59 10 mg TID.7A.12P.5P EARLENE Administration Mirtazapine 15 mg 06/03/21 22:00 06/04/21 21:02 Mirtazapine 15 Mg Tablet PO 06/03/22 21:59 15 mg QHS EARLENE Administration Nystatin 1 applic 05/28/21 09:00 06/05/21 08:36 Nystatin 100,000 Unit/Gram Powder 15 Gm Bottle TOPICAL 05/28/22 08:59 1 applic DAILY EARLENE Administration Omeprazole 40 mg 05/28/21 09:00 06/05/21 08:31 Omeprazole 20 Mg Capsule.Dr PO 05/28/22 08:59 40 mg QAM EARLENE Administration Oxycodone HCl 5 mg 05/27/21 16:25 06/05/21 02:08 Oxycodone Ir 5 Mg Tablet PO 5 mg Q4HR PRN Administration Pain Scale 6 - 10 Sennosides 2 tab 05/28/21 12:00 06/05/21 13:36 Sennosides 8.6 Mg Tablet PO 05/28/22 11:59 Not Given DAILY@12 EARLENE Sodium Chloride 0 ml 05/27/21 15:47 Sodium Chloride 0.9 % 10 Ml Syringe IV-PUSH 05/27/22 15:46 PRN PRN Flush Sotalol HCl 60 mg 05/27/21 21:00 06/05/21 08:32 Sotalol 120 Mg Tablet PO 05/27/22 20:59 60 mg BID EARLENE Administration Tamsulosin HCl 0.4 mg 05/28/21 22:00 06/02/21 22:07 Tamsulosin 0.4 Mg Cap.Er.24h PO 05/28/22 21:59 0.4 mg QHS EARLENE Administration Vitamin D 50 mcg 05/28/21 09:00 06/05/21 08:32 Cholecalciferol 25 Mcg (1,000 Units) Tablet PO 05/28/22 08:59 50 mcg QAM EARLENE Administration Assessment/Plan <Cesilia Rosales APRN - Last Filed: 06/05/21 13:55> Assessment/Plan (1) Impaired mobility and activities of daily living: Code(s): Z74.09 - Other reduced mobility; Z78.9 - Other specified health status Status: Acute (2) Pressure ulcer, stage 1: Code(s): L89.91 - Pressure ulcer of unspecified site, stage 1 Status: Acute (3) S/P total left hip arthroplasty: Code(s): Z96.642 - Presence of left artificial hip joint Status: Acute (4) BPH (benign prostatic hyperplasia): Code(s): N40.0 - Benign prostatic hyperplasia without lower urinary tract symptoms Status: Acute (5) Paroxysmal A-fib: Code(s): I48.0 - Paroxysmal atrial fibrillation Status: Acute (6) Coronary artery disease: Code(s): I25.10 - Atherosclerotic heart disease of [place] coronary artery without angina pectoris Status: Acute (7) Hyperlipidemia: Code(s): E78.5 - Hyperlipidemia, unspecified Status: Acute Plan Patient is a 75-year-old male admitted to the inpatient rehabilitation for functional decline status post total left knee arthroplasty complicated by new onset A. fib postop. He is in normal sinus rhythm and on current management. * Worsening decubitus ulcer to coccyx. Surrounding erythema and induration, foul-smelling discharge. Wound culture obtained. Wound care nurse will reevaluate the wound, ? debridement. Hospitalist team consulted to further manage. * [place] to the left hip incision removed. Incision is well approximated without signs of infection. * He continues to ambulate short distances with a wheeled walker and contact-gu delmar assist. Able to propel self 500 feet in a wheelchair. * Continue to monitor bilateral lower extremity edema. He received 1 time dose of Lasix 20 mg with marginal improvement. Continue to Dean wrap bilateral lower legs. * Spoke with daughter and updated her on further plan of care and patient's p rogress. Maintain Ghotra Tolerating decreased dose of Remeron Improving with therapy Hospitalist to assist with management of comorbid medical conditions Pain control:Continue oxycodone for now Bowel and bladder: Maintain Ghotra. Flomax on hold due to lower blood pressure. This will need to be resumed when the Ghotra comes out. Skin: Continue wound care for pressure ulcer as ordered. DVT prophylaxis:Covered with Eliquis. Functional status:Walking 35 feet with therapy, contact-guard assist and wheelchair follow. Min to contact-guard for self-care. Discharge planning:Plan for DC next week to the [place]. I spent greater than 15 minutes for services, including [id number] encounter with the patient, discussion of the case, plan of care, and exam; and [id number] activities, such as reviewing pertinent consultant electronics documentation, recent therapy notes, laboratory and radiology studies, and discussion of case with care team including physician, nursing, case management director, and therapists. More than 50 % of time was spent on patient/family counseling or coordination ofcare. <Horace Palafox MD - Last Filed: 06/08/21 13:32> Assessment/Plan (1) Impaired mobility and activities of daily living: (2) Pressure ulcer, stage 1: (3) S/P total left hip arthroplasty: (4) BPH (benign prostatic hyperplasia): (5) Paroxysmal A-fib: (6) Coronary artery disease: (7) Hyperlipidemia: Plan: I reviewed the history and the relevant portions of the chart, including currentorders, allied health and consultant electronics notes, labs/imaging and plan of care as above. Documented By: Cesilia Rosales APRN 06/05/21 1 341 Signed By: <Electronically signed by CASIMIRO Rosales> 06/05/21 1356 <Electronically signed by Horace Palafox MD> 06/08/21 [id number] [facility] Work Phone: 1(611) 739-944504-29-2022 Progress note Author Jackelyn Ambriz [facility] June 05, 2021 4:20pm Note Date/Time June 05, 2021 3:2 8pm [facility] [address] [place] [address] Hospitalist Progress Note Signed Patient: Angella Pradhan MR#: [id number] : 1945 Acct:[id number] Age/Sex: 75 / M Adm Date: 2 Loc: Room: 6N7869-0 Type : ADM IN Attending Dr: Horace Palafox MD Copies to: ~ Date of Service: 06/05/2021 Subjective Subjective Narrative: Patient is seen and examined at the request of staff. Report of coccyx wound progressing, now with slough and surrounding erythema. Discussed with nursing does report progression of this. Wound care has already seen the patient beforemy visit today and dressing was placed however I was able to view a picture of wound in good detail demonstrating surrounding erythema. Assessment by wound nurse does report erythema is an indurated area. The patient is complaining of increasing pain at the site. Otherwise he continues to participate with therapy. No fevers chills. Intake and appetite are good. Postoperative pain is managed. Daughter was present at the time of my visit and did inquire as to the patient was still on mirtazapine which shows he was since orthopedics reconciliation of medications upon initial admission?patient and daughter both indicate that Dr. Abbott took him off of this May 08 with his history of serotoninsyndrome and they request that this be listed as an allergy. Exam Physical Exam Vital Signs: Temp Pulse Resp BP Pulse Ox 97.9 F 63 16 108/74 95 06/05/21 04:57 06/05/21 08:31 06/05/21 04:57 06/05/21 08:29 06/05/21 05:15 Narrative: Alert, in bed, no distress at rest RRR no abnormal heart tones dimin without wheeze or rhonchi, RA S/NT, NABS, obese no edema BLE, calves nontender Left hip surgical incision well approximated, anand removed today Dressing present on buttocks?picture from charge nurse reviewed showing area of slough with surrounding erythema. Wound nurse reported this area was indurated. Painful on exam Objective Lab Results CBC & Chem 7: 06/05/21 04:18 06/05/21 04:18 Meds Allergies and Active Meds Allergies mirtazapine Allergy (Severe, Verified 06/05/21 16:03) serotonin syndrome Active Meds: Active Medications Generic Name Dose Route Start Last Admin Trade Name Freq PRN Reason Stop Dose Admin Acetaminophen 500 mg 05/27/21 15:47 06/05/21 02:08 Acetaminophen 500 Mg Tablet PO 05/27/22 15:46 500 mg Q4H PRN Administration Pain Al Hydrox/Mg Hydrox/Simethicone 30 ml 05/27/21 15:47 05/28/21 22:01 Mag Hydrox/Al Hydrox/Simeth 30 Ml Udc PO 05/27/22 15:46 30 ml Q4H PRN Administration Indigestion Apixaban 5 mg 05/27/21 21:00 06/05/21 08:32 Apixaban 5 Mg Tablet PO 05/27/22 20:59 5 mg BID EARLENE Administration Ascorbic Acid 500 mg 05/27/21 17:00 06/05/21 08:31 Ascorbic Acid 500 Mg Tablet PO 05/27/22 16:59 500 mg BID.WITH.MEALS EARLENE Administration Bisacodyl 10 mg 05/27/21 15:47 Bisacodyl 10 Mg Supp.Rect [place] 05/27/22 15:46 DAILY PRN Constipation Calcium Carbonate 500 mg 05/27/21 17:00 06/05/21 08:32 Calcium Carbonate 500 Mg Tablet PO 05/27/22 16:59 500 mg BID.WITH.MEALS EARLENE Administration Digoxin 125 mcg 05/28/21 09:00 06/05/21 08:31 Digoxin 125 Mcg Tablet PO 05/28/22 08:59 125 mcg QAM EARLENE Administration Docusate Sodium 100 mg 05/27/21 15:47 06/05/21 08:31 Docusate 100 Mg Capsule PO 05/27/22 15:46 100 mg BID PRN Administration Constipation Docusate Sodium 283 mg 05/27/21 15:47 Docusate Enema 283 Mg/5 Ml Enema [place] 05/27/22 15:46 DAILY PRN Constipation Finasteride 5 mg 05/28/21 09:00 06/05/21 08:32 Finasteride 5 Mg Tablet PO 05/28/22 08:59 5 mg QAM EARLENE Administration Gabapentin 300 mg 05/27/21 21:00 06/05/21 08:32 Gabapentin 300 Mg Capsule PO 05/27/22 20:59 300 mg BID EARLENE Administration Guaifenesin/Dextromethorphan 10 ml 05/27/21 16:25 Guaif/Dextromethorphan Syrup 10 Ml Udc PO 05/27/22 16:24 QID PRN Cough Hyoscyamine 0.125 mg 05/27/21 16:25 Hyoscyamine Sulfate 0.125 Mg Tab.Rapdis PO QID PRN Spasms Lact Acid/Bifidobact/Lact [place]/Streptoc Th 1 cap 05/28/21 09:00 06/05/21 08:32 L. Acidophilus/Strept/La P-Carlos 1 Cap Capsule PO 05/28/22 08:59 1 cap QAM EARLENE Administration Lactulose 30 gm 05/27/21 15:47 05/28/21 15:03 Lactulose 20 Gm/30 Ml Udc PO 05/27/22 15:46 30 gm DAILY PRN Administration Constipation Levetiracetam 500 mg 05/27/21 21:00 06/05/21 08:31 Levetiracetam 500 Mg Tablet PO 05/27/22 20:59 500 mg BID EARLENE Administration Midodrine 10 mg 05/27/21 17:00 06/05/21 13:36 Midodrine 5 Mg Tablet PO 05/27/22 16:59 10 mg TID.7A.12P.5P EARLENE Administration Mirtazapine 15 mg 06/03/21 22:00 06/04/21 21:02 Mirtazapine 15 Mg Tablet PO 06/03/22 21:59 15 mg QHS EARLENE Administration Nystatin 1 applic 05/28/21 09:00 06/05/21 08:36 Nystatin 100,000 Unit/Gram Powder 15 Gm Bottle TOPICAL 05/28/22 08:59 1 applic DAILY EARLENE Administration Omeprazole 40 mg 05/28/21 09:00 06/05/21 08:31 Omeprazole 20 Mg Capsule.Dr PO 05/28/22 08:59 40 mg QAM EARLENE Administration Oxycodone HCl 5 mg 05/27/21 16:25 06/05/21 02:08 Oxycodone Ir 5 Mg Tablet PO 5 mg Q4HR PRN Administration Pain Scale 6 - 10 Sennosides 2 tab 05/28/21 12:00 06/05/21 13:36 Sennosides 8.6 Mg Tablet PO 05/28/22 11:59 Not Given DAILY@12 EARLENE Sodium Chloride 0 ml 05/27/21 15:47 Sodium Chloride 0.9 % 10 Ml Syringe IV-PUSH 05/27/22 15:46 PRN PRN Flush Sotalol HCl 60 mg 05/27/21 21:00 06/05/21 08:32 Sotalol 120 Mg Tablet PO 05/27/22 20:59 60 mg BID EARLENE Administration Tamsulosin HCl 0.4 mg 05/28/21 22:00 06/02/21 22:07 Tamsulosin 0.4 Mg Cap.Er.24h PO 05/28/22 21:59 0.4 mg QHS EARLENE Administration Vitamin D 50 mcg 05/28/21 09:00 06/05/21 08:32 Cholecalciferol 25 Mcg (1,000 Units) Tablet PO 05/28/22 08:59 50 mcg QAM EARLENE Administration A&P - Hospitalist Assessment/Plan (1) S/P total left hip arthroplasty: (2) BPH (benign prostatic hyperplasia): (3) Paroxysmal A-fib: (4) Coronary artery disease: (5) Hyperlipidemia: Plan S/P L hip arthroplasty -Further POC for rehab therapy, PT/OT, bowel/bladder regimen, DVT ppx, pain management, wound care per PM&R Unstageable wound on coccyx -Area of induration surrounding Will initiate Keflex and follow cultures -Wound nurse following the change to plan of care -Improve nutrition with supplements twice daily, already on vitamin C, add iron and zinc for wound healing Afib, new onset. Now SR -RRR on exam, converted to NSR prior to DC to rehab -Continue digoxin, sotalol, and Eliquis BPH Urinary retention -Failed voiding trial post-operatively. Ghotra present. -Voiding trials per PM&R -Continue finasteride, tamsulosin Orthostatic hypotension, resolved/ asymptomatic -low BPs during medical admission. Initiated on midodrine Chronic conditions: 1. CAD s/p stent 2020/HTN/HLD-ASA, statin 2. GERD-omeprazole 3. 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 Continue Keppra and seizure precautions Documented By: DAYO Chavarria 2 1528 Signed By: <Electronically signed by [facility] Jackelyn Ambriz> 06/05/21 [id number] [facility] Work Phone: 1(199) 114-528604-28-2022 Progress note Author Horace Palafox [facility] June 04, 2021 10:02am Note Date/Time June 04, 2021 10: 02am [facility] [address] [place] [address] Physiatry(Rehab) Progress Note Signed Patient: Angella Pradhan MR#: [id number] : 1945 Acct:[id number] Age/Sex: 75 / M Adm Date: 2 Loc: Room: 7U7470-3 Type : ADM IN Attending Dr: Horace Palafox MD Copies to: ~ Date of Service: 06/04/2021 Subjective Subjective Narrative: Mr. Pradhan is a 75 year old male with a past medical history of arthritis, BPH,CAD, [place] s/p coronary artery stenting, who is admitted to rehabilitation for functional decline status post elective left total hip arthroplasty. He reports a longstanding history of bilateral hip pain as a result of [id number] . The surgery was planned to be performed sometime last year however he sustained a myocardial infarction in July 2020, which required stenting and resulted in prolonged recovery. He has been residing at [facility] since his heart attack. He is telling me as soon as he is finishedwith rehabilitation and medically cleared by cardiology, he will have his right hip replaced also. Postop course was complicated by a new onset atrial fibrillation which spontaneously converted to a.fib. Cardiology was consulted. He was placed on Eliquis and Sotalol. He remains in normal sinus rhythm on current therapy. On admission to rehab patient still has a Ghotra catheter. Reports inability to void after catheter removal postop due to past history of prostate hypertrophy. Catheter is draining clear yellow urine denies any pain or discomfort. We will attempt a voiding trial in the near future, if unsuccessful will have him evaluated by urology outpatient. Left hip incision is well approximated with anand intact. There is moderate amount of serous drainage from the incision. No erythema, induration, local tenderness is appreciated on exam. He also developed a pressure injury to his coccyx, likely due to incontinence. We will have wound care follow. He plans to return back to [facility] at discharge. At baseline he isambulatory with a walker, also uses electric scooter for community distances. Interval history: He is doing well today Slept overnight, even with the increased dose of Remeron. Ghotra draining, will maintain this. Vitals reviewed, blood pressure better this morning, in the 110s. His pain is well controlled Is participating well with therapy. Review of Systems Constitutional Constitutional: Denies fever(s) and Denies weakness Eyes Eyes: Reports system reviewed and no additional complaints, except as documented ENT Ears, Nose, Mouth, and Throat: Reports system reviewed and no additional complaints, except as documented Cardiovascular Cardiovascular: Denies chest pain, Denies dyspnea on exertion and Reports pedal edema Respiratory Respiratory: Reports system reviewed and no additional complaints, except as documented and Denies dyspnea on exertion Gastrointestinal Gastrointestinal: Reports constipation Genitourinary Genitourinary: Reports system reviewed and no additional complaints, except as documented Musculoskeletal Musculoskeletal: Reports arthralgias, Reports joint swelling and Reports limitedrange of motion Integumentary/Breasts Skin/Breast: Reports sores Neurologic Neurologic: Reports system reviewed and no additional complaints, except as documented and Denies weakness Psychiatric Psychiatric: Reports system reviewed and no additional complaints, except as documented Endocrine Endocrine: Reports system reviewed and no additional complaints, except as documented Hematologic/Lymphatic Hematologic/Lymphatic: Reports system reviewed and no additional complaints, except as documented Allergic/Immunologic Allergic/Immunologic: Reports system reviewed and no additional complaints, except as documented Exam Physical Exam Vital Signs: Temp Pulse Resp BP Pulse Ox 98.0 F 62 18 112/75 94 L 06/04/21 05:00 06/04/21 08:35 06/04/21 05:00 06/04/21 05:00 06/04/21 05:00 Const General: cooperative, comfortable, no acute distress and well developed Nutritional Appearance: average body habitus Orientation: alert, awake and oriented x3 HEENT Head: normal to inspection, normocephalic and atraumatic Ears: hearing grossly normal bilaterally Mouth: oral mucosae normal Eyes General: appearance normal, both eyes and all related structures Visual Srivastava: normal visual srivastava by confrontation Pupils: PERRL EOM: EOM intact bilaterally Neck Neck: normal visual inspection, full ROM, no lymphadenopathy and trachea midline Chest Chest palpation & inspection: normal inspection of the chest Resp Effort & Inspection: normal respiratory effort, able to speak in complete sentences, symmetric chest movement, no audible wheezes and no cough Auscultation: clear to auscultation bilaterally Cardio Jugular venous pressure: no JVD Palpation: normal PMI Rate: regular rate Rhythm: regular rhythm Heart Sounds: S1 normal and S2 normal GI Inspection: normal to inspection Palpation: soft and no hepatosplenomegaly Auscultation: hyperactive bowel sounds Musc Cervical Spine: normal cervical lordosis and cervical ROM normal Skin Wounds: wounds noted Neuro General: patient alert, patient awake and patient oriented x3 Cranial Nerves: CN's II-XII intact bilaterally Cognition: normal cognition Speech: speech normal Motor: muscle tone normal throughout Sensory Exam: no sensory deficits noted Extrem General: capillary refill normal and edema Laterality: bilaterally (Foot and leg) Severity: pitting and 3+ Psych Appearance: grossly normal Mental Status: mental status grossly normal Mood: congruent mood Affect: normal affect Speech and Movement: speech and movement normal Attitude: cooperative Thought Process: normal Insight: fair Judgment: fair Objective Labs CBC & Chem 7: 05/28/21 05:59 05/28/21 05:59 Medications and Allergies Allergies and Active Meds: Allergies No Known Allergies Allergy (Verified 05/05/21 16:03) Active Medications Generic Name Dose Route Start Last Admin Trade Name Freq PRN Reason Stop Dose Admin Acetaminophen 500 mg 05/27/21 15:47 06/03/21 20:59 Acetaminophen 500 Mg Tablet PO 05/27/22 15:46 500 mg Q4H PRN Administration Pain Al Hydrox/Mg Hydrox/Simethicone 30 ml 05/27/21 15:47 05/28/21 22:01 Mag Hydrox/Al Hydrox/Simeth 30 Ml Udc PO 05/27/22 15:46 30 ml Q4H PRN Administration Indigestion Apixaban 5 mg 05/27/21 21:00 06/04/21 08:34 Apixaban 5 Mg Tablet PO 05/27/22 20:59 5 mg BID EARLENE Administration Ascorbic Acid 500 mg 05/27/21 17:00 06/04/21 08:34 Ascorbic Acid 500 Mg Tablet PO 05/27/22 16:59 500 mg BID.WITH.MEALS EARLENE Administration Bisacodyl 10 mg 05/27/21 15:47 Bisacodyl 10 Mg Supp.Rect [place] 05/27/22 15:46 DAILY PRN Constipation Calcium Carbonate 500 mg 05/27/21 17:00 06/04/21 08:34 Calcium Carbonate 500 Mg Tablet PO 05/27/22 16:59 500 mg BID.WITH.MEALS [facility] Administration Digoxin 125 mcg 05/28/21 09:00 06/04/21 08:35 Digoxin 125 Mcg Tablet PO 05/28/22 08:59 125 mcg QAM [facility] Administration Docusate Sodium 100 mg 05/27/21 15:47 05/31/21 12:11 Docusate 100 Mg Capsule PO 05/27/22 15:46 100 mg BID PRN Administration Constipation Docusate Sodium 283 mg 05/27/21 15:47 Docusate Enema 283 Mg/5 Ml Enema [place] 05/27/22 15:46 DAILY PRN Constipation Finasteride 5 mg 05/28/21 09:00 06/04/21 08:34 Finasteride 5 Mg Tablet PO 05/28/22 08:59 5 mg QAM [facility] Administration Gabapentin 300 mg 05/27/21 21:00 06/04/21 08:35 Gabapentin 300 Mg Capsule PO 05/27/22 20:59 300 mg BID EARLENE Administration Guaifenesin/Dextromethorphan 10 ml 05/27/21 16:25 Guaif/Dextromethorphan Syrup 10 Ml Udc PO 05/27/22 16:24 QID PRN Cough Hyoscyamine 0.125 mg 05/27/21 16:25 Hyoscyamine Sulfate 0.125 Mg Tab.Rapdis PO QID PRN Spasms Lact Acid/Bifidobact/Lact Paracas/Streptoc Th 1 cap 05/28/21 09:00 06/04/21 08:34 L. Acidophilus/Strept/La P-Carlos 1 Cap Capsule PO 05/28/22 08:59 1 cap QAM [facility] Administration Lactulose 30 gm 05/27/21 15:47 05/28/21 15:03 Lactulose 20 Gm/30 Ml Udc PO 05/27/22 15:46 30 gm DAILY PRN Administration Constipation Levetiracetam 500 mg 05/27/21 21:00 06/04/21 08:34 Levetiracetam 500 Mg Tablet PO 05/27/22 20:59 500 mg BID EARLENE Administration Midodrine 10 mg 05/27/21 17:00 06/04/21 06:33 Midodrine 5 Mg Tablet PO 05/27/22 16:59 10 mg TID.7A.12P.5P EARLENE Administration Mirtazapine 15 mg 06/03/21 22:00 06/03/21 21:00 Mirtazapine 15 Mg Tablet PO 06/03/22 21:59 15 mg QHS EARLENE Administration Nystatin 1 applic 05/28/21 09:00 06/04/21 08:35 Nystatin 100,000 Unit/Gram Powder 15 Gm Bottle TOPICAL 05/28/22 08:59 1 applic DAILY EARLENE Administration Omeprazole 40 mg 05/28/21 09:00 06/04/21 08:34 Omeprazole 20 Mg Capsule. PO 05/28/22 08:59 40 mg QAM EARLENE Administration Oxycodone HCl 5 mg 05/27/21 16:25 06/04/21 06:33 Oxycodone Ir 5 Mg Tablet PO 5 mg Q4HR PRN Administration Pain Scale 6 - 10 Sennosides 2 tab 05/28/21 12:00 06/03/21 11:10 Sennosides 8.6 Mg Tablet PO 05/28/22 11:59 2 tab DAILY@12 EARLENE Administration Sodium Chloride 0 ml 05/27/21 15:47 Sodium Chloride 0.9 % 10 Ml Syringe IV-PUSH 05/27/22 15:46 PRN PRN Flush Sotalol HCl 60 mg 05/27/21 21:00 06/04/21 08:35 Sotalol 120 Mg Tablet PO 05/27/22 20:59 60 mg BID EARLENE Administration Tamsulosin HCl 0.4 mg 05/28/21 22:00 06/02/21 22:07 Tamsulosin 0.4 Mg Cap.Er.24h PO 05/28/22 21:59 0.4 mg QHS EARLENE Administration Vitamin D 50 mcg 05/28/21 09:00 06/04/21 08:34 Cholecalciferol 25 Mcg (1,000 Units) Tablet PO 05/28/22 08:59 50 mcg QAM EARLENE Administration Assessment/Plan Assessment/Plan (1) Impaired mobility and activities of daily living: Code(s): Z74.09 - Other reduced mobility; Z78.9 - Other specified health status Status: Acute (2) Pressure ulcer, stage 1: Code(s): L89.91 - Pressure ulcer of unspecified site, stage 1 Status: Acute (3) S/P total left hip arthroplasty: Code(s): Z96.642 - Presence of left artificial hip joint Status: Acute (4) BPH (benign prostatic hyperplasia): Code(s): N40.0 - Benign prostatic hyperplasia without lower urinary tract symptoms Status: Acute (5) Paroxysmal A-fib: Code(s): I48.0 - Paroxysmal atrial fibrillation Status: Acute (6) Coronary artery disease: Code(s): I25.10 - Atherosclerotic heart disease of [place] coronary artery without angina pectoris Status: Acute (7) Hyperlipidemia: Code(s): E78.5 - Hyperlipidemia, unspecified Status: Acute Plan Patient is a 75-year-old male admitted to the inpatient rehabilitation for functional decline status post total left knee arthroplasty complicated by new onset A. fib postop. He is in normal sinus rhythm and on current management. Completed few days of Lasix. His swelling appears marginally improved. Maintain Ghotra Tolerating decreased dose of Remeron Improving with therapy Hospitalist to assist with management of comorbid medical conditions Pain control:Continue oxycodone for now Bowel and bladder: Maintain Ghotra. Flomax on hold due to lower blood pressure. This will need to be resumed when the Ghotra comes out. Skin: Continue wound care for pressure ulcer as ordered. DVT prophylaxis:Covered with Eliquis. Functional status:Walking 35 feet with therapy, contact-guard assist and wheelchair follow. Min to contact-guard for self-care. Discharge planning:Plan for DC next week to the [place]. Documented By: Horace Palafox MD 06/04/21 0958 Signed By: <Electronically signed by Horace Palafox MD> 06/04/21 1002 [facility] Work Phone: [phone] Progress note Author Horace Palafox [facility] June 03, 2021 2:24pm Note Date/Time June 03, 2021 10: 22am [facility] [address] [place] [address] Physiatry(Rehab) Progress Note Signed Patient: Angella Pradhan MR#: [id number] : 1945 Acct:[id number] Age/Sex: 75 / M Adm Date: 2 Loc: Room: 0W0838-0 Type : ADM IN Attending Dr: Horace Palafox MD Copies to: ~ <Cesilia Rosales APRN - Last Filed: 06/03/21 10:29> Date of Service: 06/03/2021 Subjective <Cesilia Rosales APRN - Last Filed: 06/03/21 10:29> Subjective Narrative: Mr. Pradhan is a 75 year old male with a past medical history of arthritis, BPH,CAD, MO s/p coronary artery stenting, who is admitted to rehabilitation for functional decline status post elective left total hip arthroplasty. He reports a longstanding history of bilateral hip pain as a result of [id number] . The surgery was planned to be performed sometime last year however he sustained a myocardial infarction in July 2020, which required stenting and resulted in prolonged recovery. He has been residing at [facility] since his heart attack. He is telling me as soon as he is finishedwith rehabilitation and medically cleared by cardiology, he will have his right hip replaced also. Postop course was complicated by a new onset atrial fibrillation which spontaneously converted to a.fib. Cardiology was consulted. He was placed on Eliquis and Sotalol. He remains in normal sinus rhythm on current therapy. On admission to rehab patient still has a Ghotra catheter. Reports inability to void after catheter removal postop due to past history of prostate hypertrophy. Catheter is draining clear yellow urine denies any pain or discomfort. We will attempt a voiding trial in the near future, if unsuccessful will have him evaluated by urology outpatient. Left hip incision is well approximated with anand intact. There is moderate amount of serous drainage from the incision. No erythema, induration, local tenderness is appreciated on exam. He also developed a pressure injury to his coccyx, likely due to incontinence. We will have wound care follow. He plans to return back to [facility] at discharge. At baseline he isambulatory with a walker, also uses electric scooter for community distances. Interval history: Patient reports trouble sleeping because he cannot get comfortable due to sacralpressure ulcer. He he already has an air mattress and prop self with several pillows to offload the pressure. He requested to keep Ghotra catheter in for the time being to help with the pressure ulcer healing. He reports urinary incontinence at baseline, especially at nighttime. Noted some bilateral lower extremity swelling, worsened since previous assessment. He has not been wearing his LESLIE hose for the past few days. Is walking 30 feet with a wheeled walker and contact-guard assist. Left hip incision anand can be removed on 06/05/[address] Cash's order. Review of Systems <Cesilia Rosales APRN - Last Filed: 06/03/21 10:29> Constitutional Constitutional: Denies fever(s) and Denies weakness Eyes Eyes: Reports system reviewed and no additional complaints, except as documented ENT Ears, Nose, Mouth, and Throat: Reports system reviewed and no additional complaints, except as documented Cardiovascular Cardiovascular: Denies chest pain, Denies dyspnea on exertion and Reports pedal edema Respiratory Respiratory: Reports system reviewed and no additional complaints, except as documented and Denies dyspnea on exertion Gastrointestinal Gastrointestinal: Reports constipation Genitourinary Genitourinary: Reports system reviewed and no additional complaints, except as documented Musculoskeletal Musculoskeletal: Reports arthralgias, Reports joint swelling and Reports limitedrange of motion Integumentary/Breasts Skin/Breast: Reports sores Neurologic Neurologic: Reports system reviewed and no additional complaints, except as documented and Denies weakness Psychiatric Psychiatric: Reports system reviewed and no additional complaints, except as documented Endocrine Endocrine: Reports system reviewed and no additional complaints, except as documented Hematologic/Lymphatic Hematologic/Lymphatic: Reports system reviewed and no additional complaints, except as documented Allergic/Immunologic Allergic/Immunologic: Reports system reviewed and no additional complaints, except as documented Exam <Cesilia Rosales APRN - Last Filed: 06/03/21 10:29> Physical Exam Vital Signs: Temp Pulse Resp BP Pulse Ox 97.6 F 70 16 117/78 95 06/03/21 05:00 06/03/21 07:59 06/03/21 05:00 06/03/21 05:00 06/03/21 05:00 Const General: cooperative, comfortable, no acute distress and well developed Nutritional Appearance: average body habitus Orientation: alert, awake and oriented x3 HEENT Head: normal to inspection, normocephalic and atraumatic Ears: hearing grossly normal bilaterally Mouth: oral mucosae normal Eyes General: appearance normal, both eyes and all related structures Visual Srivastava: normal visual srivastava by confrontation Pupils: PERRL EOM: EOM intact bilaterally Neck Neck: normal visual inspection, full ROM, no lymphadenopathy and trachea midline Chest Chest palpation & inspection: normal inspection of the chest Resp Effort & Inspection: normal respiratory effort, able to speak in complete sentences, symmetric chest movement, no audible wheezes and no cough Auscultation: clear to auscultation bilaterally Cardio Jugular venous pressure: no JVD Palpation: normal PMI Rate: regular rate Rhythm: regular rhythm Heart Sounds: S1 normal and S2 normal GI Inspection: normal to inspection Palpation: soft and no hepatosplenomegaly Auscultation: hyperactive bowel sounds Musc Cervical Spine: normal cervical lordosis and cervical ROM normal Skin Wounds: wounds noted Neuro General: patient alert, patient awake and patient oriented x3 Cranial Nerves: CN's II-XII intact bilaterally Cognition: normal cognition Speech: speech normal Motor: muscle tone normal throughout Sensory Exam: no sensory deficits noted Extrem General: capillary refill normal and edema Laterality: bilaterally (Foot and leg) Severity: pitting and 3+ Psych Appearance: grossly normal Mental Status: mental status grossly normal Mood: congruent mood Affect: normal affect Speech and Movement: speech and movement normal Attitude: cooperative Thought Process: normal Insight: fair Judgment: fair Objective <Cesilia Rosales APRN - Last Filed: 06/03/21 10:29> Labs CBC & Chem 7: 05/28/21 05:59 05/28/21 05:59 Medications and Allergies Allergies and Active Meds: Allergies No Known Allergies Allergy (Verified 05/05/21 16:03) Active Medications Generic Name Dose Route Start Last Admin Trade Name Devenq PRN Reason Stop Dose Admin Acetaminophen 500 mg 05/27/21 15:47 05/31/21 06:27 Acetaminophen 500 Mg Tablet PO 05/27/22 15:46 500 mg Q4H PRN Administration Pain Al Hydrox/Mg Hydrox/Simethicone 30 ml 05/27/21 15:47 05/28/21 22:01 Mag Hydrox/Al Hydrox/Simeth 30 Ml Udc PO 05/27/22 15:46 30 ml Q4H PRN Administration Indigestion Apixaban 5 mg 05/27/21 21:00 06/03/21 07:59 Apixaban 5 Mg Tablet PO 05/27/22 20:59 5 mg BID EARLENE Administration Ascorbic Acid 500 mg 05/27/21 17:00 06/03/21 07:59 Ascorbic Acid 500 Mg Tablet PO 05/27/22 16:59 500 mg BID.WITH.MEALS EARLENE Administration Bisacodyl 10 mg 05/27/21 15:47 Bisacodyl 10 Mg Supp.Rect [place] 05/27/22 15:46 DAILY PRN Constipation Calcium Carbonate 500 mg 05/27/21 17:00 06/03/21 07:59 Calcium Carbonate 500 Mg Tablet PO 05/27/22 16:59 500 mg BID.WITH.MEALS EARLENE Administration Digoxin 125 mcg 05/28/21 09:00 06/03/21 07:59 Digoxin 125 Mcg Tablet PO 05/28/22 08:59 125 mcg QAM EARLENE Administration Docusate Sodium 100 mg 05/27/21 15:47 05/31/21 12:11 Docusate 100 Mg Capsule PO 05/27/22 15:46 100 mg BID PRN Administration Constipation Docusate Sodium 283 mg 05/27/21 15:47 Docusate Enema 283 Mg/5 Ml Enema [place] 05/27/22 15:46 DAILY PRN Constipation Finasteride 5 mg 05/28/21 09:00 06/03/21 08:04 Finasteride 5 Mg Tablet PO 05/28/22 08:59 5 mg QAM [facility] Administration Gabapentin 300 mg 05/27/21 21:00 06/03/21 07:59 Gabapentin 300 Mg Capsule PO 05/27/22 20:59 300 mg BID EARLENE Administration Guaifenesin/Dextromethorphan 10 ml 05/27/21 16:25 Guaif/Dextromethorphan Syrup 10 Ml Udc PO 05/27/22 16:24 QID PRN Cough Hyoscyamine 0.125 mg 05/27/21 16:25 Hyoscyamine Sulfate 0.125 Mg Tab.Rapdis PO QID PRN Spasms Lact Acid/Bifidobact/Lact Paracas/Streptoc Th 1 cap 05/28/21 09:00 06/03/21 07:59 L. Acidophilus/Strept/La P-Carlos 1 Cap Capsule PO 05/28/22 08:59 1 cap QAM EARLENE Administration Lactulose 30 gm 05/27/21 15:47 05/28/21 15:03 Lactulose 20 Gm/30 Ml Udc PO 05/27/22 15:46 30 gm DAILY PRN Administration Constipation Levetiracetam 500 mg 05/27/21 21:00 06/03/21 07:59 Levetiracetam 500 Mg Tablet PO 05/27/22 20:59 500 mg BID EARLENE Administration Midodrine 10 mg 05/27/21 17:00 06/03/21 06:07 Midodrine 5 Mg Tablet PO 05/27/22 16:59 10 mg TID.7A.12P.5P EARLENE Administration Mirtazapine 30 mg 05/27/21 22:00 06/02/21 22:07 Mirtazapine 30 Mg Tablet PO 05/27/22 21:59 30 mg QHS EARLENE Administration Nystatin 1 applic 05/28/21 09:00 06/03/21 08:01 Nystatin 100,000 Unit/Gram Powder 15 Gm Bottle TOPICAL 05/28/22 08:59 1 applic DAILY EARLENE Administration Omeprazole 40 mg 05/28/21 09:00 06/03/21 07:59 Omeprazole 20 Mg Capsule.Dr PO 05/28/22 08:59 40 mg QAM EARLENE Administration Oxycodone HCl 5 mg 05/27/21 16:25 06/03/21 07:59 Oxycodone Ir 5 Mg Tablet PO 5 mg Q4HR PRN Administration Pain Scale 6 - 10 Sennosides 2 tab 05/28/21 12:00 06/02/21 12:06 Sennosides 8.6 Mg Tablet PO 05/28/22 11:59 Not Given DAILY@12 EARLENE Sodium Chloride 0 ml 05/27/21 15:47 Sodium Chloride 0.9 % 10 Ml Syringe IV-PUSH 05/27/22 15:46 PRN PRN Flush Sotalol HCl 60 mg 05/27/21 21:00 06/03/21 07:59 Sotalol 120 Mg Tablet PO 05/27/22 20:59 60 mg BID EARLENE Administration Tamsulosin HCl 0.4 mg 05/28/21 22:00 06/02/21 22:07 Tamsulosin 0.4 Mg Cap.Er.24h PO 05/28/22 21:59 0.4 mg QHS EARLENE Administration Vitamin D 50 mcg 05/28/21 09:00 06/03/21 07:59 Cholecalciferol 25 Mcg (1,000 Units) Tablet PO 05/28/22 08:59 50 mcg QAM EARLENE Administration Assessment/Plan <Cesilia Rosales APRN - Last Filed: 06/03/21 10:29> Assessment/Plan (1) Impaired mobility and activities of daily living: Code(s): Z74.09 - Other reduced mobility; Z78.9 - Other specified health status Status: Acute (2) Pressure ulcer, stage 1: Code(s): L89.91 - Pressure ulcer of unspecified site, stage 1 Status: Acute (3) S/P total left hip arthroplasty: Code(s): Z96.642 - Presence of left artificial hip joint Status: Acute (4) BPH (benign prostatic hyperplasia): Code(s): N40.0 - Benign prostatic hyperplasia without lower urinary tract symptoms Status: Acute (5) Paroxysmal A-fib: Code(s): I48.0 - Paroxysmal atrial fibrillation Status: Acute (6) Coronary artery disease: Code(s): I25.10 - Atherosclerotic heart disease of [place] coronary artery without angina pectoris Status: Acute (7) Hyperlipidemia: Code(s): E78.5 - Hyperlipidemia, unspecified Status: Acute Plan Patient is a 75-year-old male admitted to the inpatient rehabilitation for functional decline status post total left knee arthroplasty complicated by new onset A. fib postop. He is in normal sinus rhythm and on current management. * Initiate Dean wraps to bilateral lower extremities to help with edema. Will add daily weights. Consider low dose of Lasix x few days? Patient has a hx of orthostatic hypotension and takes midodrine 3 times daily. * Will maintain the Ghotra catheter to aid in sacral wound healing. He has ur inary incontinence at baseline, normally worse at bedtime but has been incontinent during the day ever since the surgery. * Left hip anand can come out on 06/05/[address] Cash's orders. Incis ion is well approximated without signs of infection. <Horace Palafox MD - Last Filed: 06/03/21 14:24> Assessment/Plan (1) Impaired mobility and activities of daily living: (2) Pressure ulcer, stage 1: (3) S/P total left hip arthroplasty: (4) BPH (benign prostatic hyperplasia): (5) Paroxysmal A-fib: (6) Coronary artery disease: (7) Hyperlipidemia: Plan: I completed a substantive portion of this encounter, the medical decision makingportion of this note in its entirety, including Allied health note review, nursing note review, consultant electronics note review, discussion with nursing and case management, and more than 50% of my time was spent on counseling and coordination of care, time spent 16 minutes. Patient was personally seen by me, Dr. Palafox, on the day of encounter, reviewed the history and the relevant portions of the chart, including current orders, allied health and consultant electronics notes, labs/imaging and performed fletcher elements of exam and I formulated the plan of care and facilitated the medical decision making and confirmed the Resident note, as above I will call the daughter today regarding Ghotra catheter management and the Remeron Patient concerned about the Ghotra being removed as it relates to wound healing, daughter states he was taken off the Remeron in the outpatient setting due to serotonin syndrome Agree with a few days of Lasix for edema although this is likely multifactorial,his albumin level is also low, And may be contributing, agree with compression and elevation for now. Documented By: Cesilia Rosales APRN 06/03/21 1 010 Signed By: <Electronically signed by CASIMIRO Rosales> 06/03/21 1029 <Electronically signed by Horace Palafox MD> 06/03/21 0576 [facility] Work Phone: 1(287) 482-510004-26-2022 Progress note Author Horace Palafox [facility] June 02, 2021 3:23pm Note Date/Time June 02, 2021 12: 11pm [facility] [address] [place] [address] Physiatry(Rehab) Progress Note Signed Patient: Angella Pradhan MR#: [id number] : 1945 Acct:[id number] Age/Sex: 75 / M Adm Date: 2 Loc: Room: 5D8759-7 Type : ADM IN Attending Dr: Horace Palafox MD Copies to: ~ <Brandi Mccain DO, RES - Last Filed: 06/02/21 12:11> Date of Service: 06/02/2021 Subjective <Brandi Mccain DO, RES - Last Filed: 06/02/21 12:11> Subjective Narrative: Mr. Pradhan is a 75 year old male with a past medical history of arthritis, BPH,CAD, [place] s/p coronary artery stenting, who is admitted to rehabilitation for functional decline status post elective left total hip arthroplasty. He reports a longstanding history of bilateral hip pain as a result of [id number] . The surgery was planned to be performed sometime last year however he sustained a myocardial infarction in July 2020, which required stenting and resulted in prolonged recovery. He has been residing at [facility] since his heart attack. He is telling me as soon as he is finishedwith rehabilitation and medically cleared by cardiology, he will have his right hip replaced also. Postop course was complicated by a new onset atrial fibrillation which spontaneously converted to a.fib. Cardiology was consulted. He was placed on Eliquis and Sotalol. He remains in normal sinus rhythm on current therapy. On admission to rehab patient still has a Ghotra catheter. Reports inability to void after catheter removal postop due to past history of prostate hypertrophy. Catheter is draining clear yellow urine denies any pain or discomfort. We will attempt a voiding trial in the near future, if unsuccessful will have him evaluated by urology outpatient. Left hip incision is well approximated with anand intact. There is moderate amount of serous drainage from the incision. No erythema, induration, local tenderness is appreciated on exam. He also developed a pressure injury to his coccyx, likely due to incontinence. We will have wound care follow. He plans to return back to [facility] at discharge. At baseline he isambulatory with a walker, also uses electric scooter for community distances. Interval history: Patient seen in the PT gym. Patient sitting comfortably in wheelchair. Patient reports having trouble sleeping last night due to not beingable to get comfortable in the bed. Patient states his hip pain is 4/10. He states he is doing well with therapy. No other complaints. Review of Systems <Brandi Mccain DO, RES - Last Filed: 06/02/21 12:11> Review of Systems Review of systems: Constitutional: No fever or weight loss. Eyes: No visual changes or eye pain. Ear, Nose and throat: No congestion, sore throat, sinusitis or ear pain. Cardiovascular: Reports pedal edema. No palpitations, dyspnea on exertion,or syncope. Respiratory: No shortness of breath, cough, congestion, wheezing or sputum production. Gastrointestinal: No abdominal pain, hematemesis, melena, nausea, vomiting or diarrhea. Genitourinary: No dysuria, urgency, or burning with urination. Musculoskeletal: Complains of left hip pain. Skin: Reports sores. Neurologic: No headache, vertigo, weakness, numbness or tingling. Exam <Brandi Mccain DO, RES - Last Filed: 06/02/21 12:11> Physical Exam Vital Signs: Temp Pulse Resp BP Pulse Ox 98.2 F 71 16 104/66 95 06/02/21 05:00 06/02/21 09:32 06/02/21 05:00 06/02/21 05:00 06/02/21 05:00 Narrative: CONSTITUTIONAL: No apparent distress. Alert, oriented. HEAD: Normocephalic, atraumatic. EYES: Sclera clear. Pupils equal and reactive. Conjunctiva normal. ENT: External nose normal. No rhinorrhea. NECK: Neck supple. No adenopathy. LUNGS: No distress. Lungs clear bilaterally. Symmetric chest rise. No wheezes, rales or rhonchi. CARDIOVASCULAR: Regular rate and rhythm. No murmurs, rubs or gallops. ABDOMEN: Soft, non-tender, non-distended. Normal bowel sounds. MSK: No midline or paraspinal tenderness. Strength 5/5 throughout. SKIN: Intact. No rash. No trauma. NEUROLOGIC: Cranial nerves grossly intact. No focal neurologic signs. PSYCHIATRIC: Normal affect. Objective <Brandi Mccain DO, RES - Last Filed: 06/02/21 12:11> Labs CBC & Chem 7: 05/28/21 05:59 05/28/21 05:59 Medications and Allergies Allergies and Active Meds: Allergies No Known Allergies Allergy (Verified 05/05/21 16:03) Active Medications Generic Name Dose Route Start Last Admin Trade Name Freq PRN Reason Stop Dose Admin Acetaminophen 500 mg 05/27/21 15:47 05/31/21 06:27 Acetaminophen 500 Mg Tablet PO 05/27/22 15:46 500 mg Q4H PRN Administration Pain Al Hydrox/Mg Hydrox/Simethicone 30 ml 05/27/21 15:47 05/28/21 22:01 Mag Hydrox/Al Hydrox/Simeth 30 Ml Udc PO 05/27/22 15:46 30 ml Q4H PRN Administration Indigestion Apixaban 5 mg 05/27/21 21:00 06/02/21 09:32 Apixaban 5 Mg Tablet PO 05/27/22 20:59 5 mg BID EARLENE Administration Ascorbic Acid 500 mg 05/27/21 17:00 06/02/21 09:32 Ascorbic Acid 500 Mg Tablet PO 05/27/22 16:59 500 mg BID.WITH.MEALS EARLENE Administration Bisacodyl 10 mg 05/27/21 15:47 Bisacodyl 10 Mg Supp.Rect [place] 05/27/22 15:46 DAILY PRN Constipation Calcium Carbonate 500 mg 05/27/21 17:00 06/02/21 09:32 Calcium Carbonate 500 Mg Tablet PO 05/27/22 16:59 500 mg BID.WITH.MEALS EARLENE Administration Digoxin 125 mcg 05/28/21 09:00 06/02/21 09:32 Digoxin 125 Mcg Tablet PO 05/28/22 08:59 125 mcg QAM EARLENE Administration Docusate Sodium 100 mg 05/27/21 15:47 05/31/21 12:11 Docusate 100 Mg Capsule PO 05/27/22 15:46 100 mg BID PRN Administration Constipation Docusate Sodium 283 mg 05/27/21 15:47 Docusate Enema 283 Mg/5 Ml Enema [place] 05/27/22 15:46 DAILY PRN Constipation Finasteride 5 mg 05/28/21 09:00 06/02/21 09:34 Finasteride 5 Mg Tablet PO 05/28/22 08:59 5 mg QAM EARLENE Administration Gabapentin 300 mg 05/27/21 21:00 06/02/21 09:32 Gabapentin 300 Mg Capsule PO 05/27/22 20:59 300 mg BID EARLENE Administration Guaifenesin/Dextromethorphan 10 ml 05/27/21 16:25 Guaif/Dextromethorphan Syrup 10 Ml Udc PO 05/27/22 16:24 QID PRN Cough Hyoscyamine 0.125 mg 05/27/21 16:25 Hyoscyamine Sulfate 0.125 Mg Tab.Rapdis PO QID PRN Spasms Lact Acid/Bifidobact/Lact Paracas/Streptoc Th 1 cap 05/28/21 09:00 06/02/21 09:32 L. Acidophilus/Strept/La P-Carlos 1 Cap Capsule PO 05/28/22 08:59 1 cap QAM EARLENE Administration Lactulose 30 gm 05/27/21 15:47 05/28/21 15:03 Lactulose 20 Gm/30 Ml Udc PO 05/27/22 15:46 30 gm DAILY PRN Administration Constipation Levetiracetam 500 mg 05/27/21 21:00 06/02/21 09:33 Levetiracetam 500 Mg Tablet PO 05/27/22 20:59 500 mg BID EARLENE Administration Midodrine 10 mg 05/27/21 17:00 06/02/21 09:30 Midodrine 5 Mg Tablet PO 05/27/22 16:59 Not Given TID.7A.12P.5P EARLENE Mirtazapine 30 mg 05/27/21 22:00 06/01/21 23:15 Mirtazapine 30 Mg Tablet PO 05/27/22 21:59 Not Given QHS EARLENE Nystatin 1 applic 05/28/21 09:00 06/02/21 09:33 Nystatin 100,000 Unit/Gram Powder 15 Gm Bottle TOPICAL 05/28/22 08:59 1 applic DAILY EARLENE Administration Omeprazole 40 mg 05/28/21 09:00 06/02/21 09:32 Omeprazole 20 Mg Capsule.Dr PO 05/28/22 08:59 40 mg QAM EARLENE Administration Oxycodone HCl 5 mg 05/27/21 16:25 06/01/21 20:45 Oxycodone Ir 5 Mg Tablet PO 5 mg Q4HR PRN Administration Pain Scale 6 - 10 Sennosides 2 tab 05/28/21 12:00 06/01/21 11:44 Sennosides 8.6 Mg Tablet PO 05/28/22 11:59 2 tab DAILY@12 EARLENE Administration Sodium Chloride 0 ml 05/27/21 15:47 Sodium Chloride 0.9 % 10 Ml Syringe IV-PUSH 05/27/22 15:46 PRN PRN Flush Sotalol HCl 60 mg 05/27/21 21:00 06/02/21 09:31 Sotalol 120 Mg Tablet PO 05/27/22 20:59 60 mg BID EARLENE Administration Tamsulosin HCl 0.4 mg 05/28/21 22:00 06/01/21 23:15 Tamsulosin 0.4 Mg Cap.Er.24h PO 05/28/22 21:59 Not Given QHS [facility] Vitamin D 50 mcg 05/28/21 09:00 06/02/21 09:32 Cholecalciferol 25 Mcg (1,000 Units) Tablet PO 05/28/22 08:59 50 mcg QAM [facility] Administration Assessment/Plan <Brandi MccainDO RES - Last Filed: 06/02/21 12:11> Assessment/Plan (1) Impaired mobility and activities of daily living: Code(s): Z74.09 - Other reduced mobility; Z78.9 - Other specified health status Status: Acute (2) Pressure ulcer, stage 1: Code(s): L89.91 - Pressure ulcer of unspecified site, stage 1 Status: Acute (3) S/P total left hip arthroplasty: Code(s): Z96.642 - Presence of left artificial hip joint Status: Acute (4) BPH (benign prostatic hyperplasia): Code(s): N40.0 - Benign prostatic hyperplasia without lower urinary tract symptoms Status: Acute (5) Paroxysmal A-fib: Code(s): I48.0 - Paroxysmal atrial fibrillation Status: Acute (6) Coronary artery disease: Code(s): I25.10 - Atherosclerotic heart disease of [place] coronary artery without angina pectoris Status: Acute (7) Hyperlipidemia: Code(s): E78.5 - Hyperlipidemia, unspecified Status: Acute Plan Patient is a 75-year-old male admitted to the inpatient rehabilitation for functional decline status post total left knee arthroplasty complicated by new onset A. fib postop. He is in normal sinus rhythm and on current management. * Patient states he is having trouble sleeping at night due to pain of his ulcer. Patient was offered sleep medication but declined as he would like to continue taking his pain medication. * Blood pressure is low but patient is asymptomatic. Continue to monitor blood pressure. * Monitor left hip incision for signs of infection. Continue wound care to evaluate and treat coccyx ulcer and continue to encourage mobilization and frequent postural changes. * Patient ambulated 16 feet with a rolling walker and CGA. We will continue gait and balance retraining. Continue functional training and self-care and home management including activities of daily living and instrumental activities of daily living. * Discharge plan is back to [facility] in 7 to 10 days. <Horace Palafox MD - Last Filed: 06/02/21 15:23> Assessment/Plan (1) Impaired mobility and activities of daily living: (2) Pressure ulcer, stage 1: (3) S/P total left hip arthroplasty: (4) BPH (benign prostatic hyperplasia): (5) Paroxysmal A-fib: (6) Coronary artery disease: (7) Hyperlipidemia: Plan: I completed a substantive portion of this encounter, the medical decision makingportion of this note in its entirety, including Allied health note review, nursing note review, consultant electronics note review, discussion with nursing and case management, and more than 50% of my time was spent on counseling and coordination of care, time spent 16 minutes. Patient was personally seen by me, Dr. Palafox, on the day of encounter, reviewed the history and the relevant portions of the chart, including current orders, allied health and consultant electronics notes, labs/imaging and performed fletcher elements of exam and I formulated the plan of care and facilitated the medical decision making and confirmed the Resident note, as above DC Ghotra today for voiding trial Vitals are stable Improving with therapy. Documented By: Brandi Mccain DO, JAYDA 06/02/21 1 207 Signed By: <Electronically signed by DO JAYDA Mccain> 06/02/21 1211 <Electronically signed by Horace Palafox MD> 06/02/21 [facility] Work Phone: 1(373) 535-594704-25-2022 Progress note Author Horace Palafox [facility] June 01, 2021 8:04pm Note Date/Time June 01, 2021 11: 26am [facility] [address] [place] [address] Physiatry(Rehab) Progress Note Signed Patient: Angella Pradhan MR#: [id number] : 1945 Acct:[id number] Age/Sex: 75 / M Adm Date: 2 Loc: Room: 5A5499-2 Type : ADM IN Attending Dr: Horace Palafox MD Copies to: ~ <Brandi Mccain DO, RES - Last Filed: 06/01/21 11:26> Date of Service: 06/01/2021 Subjective <Brandi Mccain DO, RES - Last Filed: 06/01/21 11:26> Subjective Narrative: Mr. Pradhan is a 75 year old male with a past medical history of arthritis, BPH,CAD, MO s/p coronary artery stenting, who is admitted to rehabilitation for functional decline status post elective left total hip arthroplasty. He reports a longstanding history of bilateral hip pain as a result of [id number] . The surgery was planned to be performed sometime last year however he sustained a myocardial infarction in July 2020, which required stenting and resulted in prolonged recovery. He has been residing at [facility] since his heart attack. He is telling me as soon as he is finishedwith rehabilitation and medically cleared by cardiology, he will have his right hip replaced also. Postop course was complicated by a new onset atrial fibrillation which spontaneously converted to a.fib. Cardiology was consulted. He was placed on Eliquis and Sotalol. He remains in normal sinus rhythm on current therapy. On admission to rehab patient still has a Ghotra catheter. Reports inability to void after catheter removal postop due to past history of prostate hypertrophy. Catheter is draining clear yellow urine denies any pain or discomfort. We will attempt a voiding trial in the near future, if unsuccessful will have him evaluated by urology outpatient. Left hip incision is well approximated with anand intact. There is moderate amount of serous drainage from the incision. No erythema, induration, local tenderness is appreciated on exam. He also developed a pressure injury to his coccyx, likely due to incontinence. We will have wound care follow. He plans to return back to [facility] at discharge. At baseline he isambulatory with a walker, also uses electric scooter for community distances. Interval history: Patient sitting up in wheelchair and had just finished shaving. Patient states he is doing well. Patient is having difficulty sleeping at night due to to the pain of his sacral ulcer. Patient was offered sleep medication but declined. He would like to have his pain medication to help with sleep. Review of Systems <Brandi Mccain DO, RES - Last Filed: 06/01/21 11:26> Review of Systems Review of systems: Constitutional: No fever or weight loss. Eyes: No visual changes or eye pain. Ear, Nose and throat: No congestion, sore throat, sinusitis or ear pain. Cardiovascular: Reports pedal edema. No palpitations, dyspnea on exertion,or syncope. Respiratory: No shortness of breath, cough, congestion, wheezing or sputum production. Gastrointestinal: No abdominal pain, hematemesis, melena, nausea, vomiting or diarrhea. Genitourinary: No dysuria, urgency, or burning with urination. Musculoskeletal: Complains of arthralgias, joint swelling and limited range of motion. Skin: Reports sores. Neurologic: No headache, vertigo, weakness, numbness or tingling. Exam <Brandi Mccain DO, RES - Last Filed: 06/01/21 11:26> Physical Exam Vital Signs: Temp Pulse Resp BP Pulse Ox 97.9 F 68 18 95/63 L 95 06/01/21 08:50 06/01/21 08:50 06/01/21 08:50 06/01/21 08:50 06/01/21 08:50 Narrative: CONSTITUTIONAL: No apparent distress. Alert, oriented. HEAD: Normocephalic, atraumatic. EYES: Sclera clear. Pupils equal and reactive. Conjunctiva normal. ENT: External nose normal. No rhinorrhea. NECK: Neck supple. No adenopathy. LUNGS: No distress. Lungs clear bilaterally. Symmetric chest rise. No wheezes, rales or rhonchi. CARDIOVASCULAR: Regular rate and rhythm. No murmurs, rubs or gallops. ABDOMEN: Soft, non-tender, non-distended. Normal bowel sounds. MSK: No midline or paraspinal tenderness. Strength 5/5 throughout. SKIN: Intact. No rash. No trauma. NEUROLOGIC: Cranial nerves grossly intact. No focal neurologic signs. PSYCHIATRIC: Normal affect. Objective <Brandi Mccain DO, RES - Last Filed: 06/01/21 11:26> Labs CBC & Chem 7: 05/28/21 05:59 05/28/21 05:59 Medications and Allergies Allergies and Active Meds: Allergies No Known Allergies Allergy (Verified 05/05/21 16:03) Active Medications Generic Name Dose Route Start Last Admin Trade Name Freq PRN Reason Stop Dose Admin Acetaminophen 500 mg 05/27/21 15:47 05/31/21 06:27 Acetaminophen 500 Mg Tablet PO 05/27/22 15:46 500 mg Q4H PRN Administration Pain Al Hydrox/Mg Hydrox/Simethicone 30 ml 05/27/21 15:47 05/28/21 22:01 Mag Hydrox/Al Hydrox/Simeth 30 Ml Udc PO 05/27/22 15:46 30 ml Q4H PRN Administration Indigestion Apixaban 5 mg 05/27/21 21:00 06/01/21 08:34 Apixaban 5 Mg Tablet PO 05/27/22 20:59 5 mg BID EARLENE Administration Ascorbic Acid 500 mg 05/27/21 17:00 06/01/21 08:34 Ascorbic Acid 500 Mg Tablet PO 05/27/22 16:59 500 mg BID.WITH.MEALS EARLENE Administration Bisacodyl 10 mg 05/27/21 15:47 Bisacodyl 10 Mg Supp.Rect AZ 05/27/22 15:46 DAILY PRN Constipation Calcium Carbonate 500 mg 05/27/21 17:00 06/01/21 08:34 Calcium Carbonate 500 Mg Tablet PO 05/27/22 16:59 500 mg BID.WITH.MEALS EARLENE Administration Digoxin 125 mcg 05/28/21 09:00 06/01/21 08:33 Digoxin 125 Mcg Tablet PO 05/28/22 08:59 125 mcg QAM EARLENE Administration Docusate Sodium 100 mg 05/27/21 15:47 05/31/21 12:11 Docusate 100 Mg Capsule PO 05/27/22 15:46 100 mg BID PRN Administration Constipation Docusate Sodium 283 mg 05/27/21 15:47 Docusate Enema 283 Mg/5 Ml Enema [place] 05/27/22 15:46 DAILY PRN Constipation Finasteride 5 mg 05/28/21 09:00 06/01/21 08:32 Finasteride 5 Mg Tablet PO 05/28/22 08:59 5 mg QAM EARLENE Administration Gabapentin 300 mg 05/27/21 21:00 06/01/21 08:33 Gabapentin 300 Mg Capsule PO 05/27/22 20:59 300 mg BID EARLENE Administration Guaifenesin/Dextromethorphan 10 ml 05/27/21 16:25 Guaif/Dextromethorphan Syrup 10 Ml Udc PO 05/27/22 16:24 QID PRN Cough Hyoscyamine 0.125 mg 05/27/21 16:25 Hyoscyamine Sulfate 0.125 Mg Tab.Rapdis PO QID PRN Spasms Lact Acid/Bifidobact/Lact Paracas/Streptoc Th 1 cap 05/28/21 09:00 06/01/21 08:33 L. Acidophilus/Strept/La P-Carlos 1 Cap Capsule PO 05/28/22 08:59 1 cap QAM EARLENE Administration Lactulose 30 gm 05/27/21 15:47 05/28/21 15:03 Lactulose 20 Gm/30 Ml Udc PO 05/27/22 15:46 30 gm DAILY PRN Administration Constipation Levetiracetam 500 mg 05/27/21 21:00 06/01/21 08:34 Levetiracetam 500 Mg Tablet PO 05/27/22 20:59 500 mg BID EARLENE Administration Midodrine 10 mg 05/27/21 17:00 06/01/21 06:06 Midodrine 5 Mg Tablet PO 05/27/22 16:59 10 mg TID.7A.12P.5P EARLENE Administration Mirtazapine 30 mg 05/27/21 22:00 05/31/21 21:41 Mirtazapine 30 Mg Tablet PO 05/27/22 21:59 30 mg QHS EARLENE Administration Nystatin 1 applic 05/28/21 09:00 06/01/21 08:35 Nystatin 100,000 Unit/Gram Powder 15 Gm Bottle TOPICAL 05/28/22 08:59 1 applic DAILY EARLENE Administration Omeprazole 40 mg 05/28/21 09:00 06/01/21 08:34 Omeprazole 20 Mg Capsule.Dr PO 05/28/22 08:59 40 mg QAM EARLENE Administration Oxycodone HCl 5 mg 05/27/21 16:25 06/01/21 08:20 Oxycodone Ir 5 Mg Tablet PO 5 mg Q4HR PRN Administration Pain Scale 6 - 10 Sennosides 2 tab 05/28/21 12:00 05/31/21 12:12 Sennosides 8.6 Mg Tablet PO 05/28/22 11:59 2 tab DAILY@12 EARLENE Administration Sodium Chloride 0 ml 05/27/21 15:47 Sodium Chloride 0.9 % 10 Ml Syringe IV-PUSH 05/27/22 15:46 PRN PRN Flush Sotalol HCl 60 mg 05/27/21 21:00 06/01/21 08:33 Sotalol 120 Mg Tablet PO 05/27/22 20:59 60 mg BID EARLENE Administration Tamsulosin HCl 0.4 mg 05/28/21 22:00 05/31/21 21:41 Tamsulosin 0.4 Mg Cap.Er.24h PO 05/28/22 21:59 0.4 mg QHS EARLENE Administration Vitamin D 50 mcg 05/28/21 09:00 06/01/21 08:32 Cholecalciferol 25 Mcg (1,000 Units) Tablet PO 05/28/22 08:59 50 mcg QAM EARLENE Administration Assessment/Plan <Brandi Mccain, DO, RES - Last Filed: 06/01/21 11:26> Assessment/Plan (1) Impaired mobility and activities of daily living: Code(s): Z74.09 - Other reduced mobility; Z78.9 - Other specified health status Status: Acute (2) Pressure ulcer, stage 1: Code(s): L89.91 - Pressure ulcer of unspecified site, stage 1 Status: Acute (3) S/P total left hip arthroplasty: Code(s): Z96.642 - Presence of left artificial hip joint Status: Acute (4) BPH (benign prostatic hyperplasia): Code(s): N40.0 - Benign prostatic hyperplasia without lower urinary tract symptoms Status: Acute (5) Paroxysmal A-fib: Code(s): I48.0 - Paroxysmal atrial fibrillation Status: Acute (6) Coronary artery disease: Code(s): I25.10 - Atherosclerotic heart disease of [place] coronary artery without angina pectoris Status: Acute (7) Hyperlipidemia: Code(s): E78.5 - Hyperlipidemia, unspecified Status: Acute Plan Patient is a 75-year-old male admitted to the inpatient rehabilitation for functional decline status post total left knee arthroplasty complicated by new onset A. fib postop. He is in normal sinus rhythm and on current management. * Patient states he is having trouble sleeping at night due to pain of his ulcer. Patient was offered sleep medication but declined as he would like to continue taking his pain medication. * Blood pressure is low but patient is asymptomatic. Continue to monitor blood pressure. * Monitor left hip incision for signs of infection. Continue wound care to e valuate and treat coccyx ulcer and continue to encourage mobilization and frequent postural changes. * Patient attempted to ambulate but it is unable as he is afraid his right hip will give out on him. Patient able to move 250 feet using bilateral upper extremities in the wheelchair. We will continue gait and balance retraining. Continue functional training and self-care and home management including activities of daily living and instrumental activities of daily living. * Discharge plan is back to [facility] in 7 to 10 days. <Horace Palafox MD - Last Filed: 06/01/21 20:04> Assessment/Plan (1) Impaired mobility and activities of daily living: (2) Pressure ulcer, stage 1: (3) S/P total left hip arthroplasty: (4) BPH (benign prostatic hyperplasia): (5) Paroxysmal A-fib: (6) Coronary artery disease: (7) Hyperlipidemia: Plan: I completed a substantive portion of this encounter, the medical decision makingportion of this note in its entirety, including Allied health note review, nursing note review, consultant electronics note review, discussion with nursing and case management, and more than 50% of my time was spent on counseling and coordination of care, time spent 16 minutes. Patient was personally seen by me, Dr. Palafox, on the day of encounter, reviewed the history and the relevant portions of the chart, including current orders, allied health and consultant electronics notes, labs/imaging and performed fletcher elements of exam and I formulated the plan of care and facilitated the medical decision making and confirmed the medical student note, as above Voiding trial tomorrow Documented By: Brandi Mccain DO, RES 06/01/21 1 120 Signed By: <Electronically signed by RES Brandi Mccain> 06/01/21 1126 <Electronically signed by Horace Palafox MD> 06/01/212003 [facility] Work Phone: 1(297) 467-177304-22-2022 Progress note Author Horace Palafox [facility] May 29, 2021 3:37pm Note Date/Time May 29, 2021 12: 02pm [facility] [address] [place] [address] Physiatry(Rehab) Progress Note Signed with Addenda Patient: Angella Pradhan MR#: [id number] : 1945 Acct:[id number] Age/Sex: 75 / M Adm Date: 2 Loc: Room: [address] [place] [address] Type : ADM IN Attending Dr: Horace Palafox MD Copies to: ~ ADDENDUM1 I reviewed the history and the relevant portions of the chart, including currentorders, allied health and consultant electronics notes, labs/imaging and plan of care as above and concur with med student note. Addendum Documented By: Horace Palafox MD 05/29/211536 Addendum Signed By: <Electronically signed by Horace Palafox MD> 05/29/211536 <Brandi Mccain DO, RES - Last Filed: 05/29/21 12:04> Date of Service: 05/29/2021 Subjective <Brandi Mccain DO, RES - Last Filed: 05/29/21 12:04> Subjective Narrative: Mr. Pradhan is a 75 year old male with a past medical history of arthritis, BPH,CAD, [place] s/p coronary artery stenting, who is admitted to rehabilitation for functional decline status post elective left total hip arthroplasty. He reports a longstanding history of bilateral hip pain as a result of [id number] . The surgery was planned to be performed sometime last year however he sustained a myocardial infarction in July 2020, which required stenting and resulted in prolonged recovery. He has been residing at [facility] since his heart attack. He is telling me as soon as he is finishedwith rehabilitation and medically cleared by cardiology, he will have his right hip replaced also. Postop course was complicated by a new onset atrial fibrillation which spontaneously converted to a.fib. Cardiology was consulted. He was placed on Eliquis and Sotalol. He remains in normal sinus rhythm on current therapy. On admission to rehab patient still has a Ghotra catheter. Reports inability to void after catheter removal postop due to past history of prostate hypertrophy. Catheter is draining clear yellow urine denies any pain or discomfort. We will attempt a voiding trial in the near future, if unsuccessful will have him evaluated by urology outpatient. Left hip incision is well approximated with anand intact. There is moderate amount of serous drainage from the incision. No erythema, induration, local tenderness is appreciated on exam. He also developed a pressure injury to his coccyx, likely due to incontinence. We will have wound care follow. He plans to return back to [facility] at discharge. At baseline he isambulatory with a walker, also uses electric scooter for community distances. Interval history: Patient examined while sitting in wheelchair. Patient is resting comfortably. No overnight events reported. Patient has no complaints. All questions are answered. <Horace Palafox MD - Last Filed: 05/29/21 15:36> Subjective Narrative: Mr. Pradhan is a 75 year old male with a past medical history of arthritis, BPH,CAD, MO s/p coronary artery stenting, who is admitted to rehabilitation for functional decline status post elective left total hip arthroplasty. He reports a longstanding history of bilateral hip pain as a result of [id number] . The surgery was planned to be performed sometime last year however he sustained a myocardial infarction in July 2020, which required stenting and resulted in prolonged recovery. He has been residing at [facility] since his heart attack. He is telling me as soon as he is finishedwith rehabilitation and medically cleared by cardiology, he will have his right hip replaced also. Postop course was complicated by a new onset atrial fibrillation which spontaneously converted to a.fib. Cardiology was consulted. He was placed on Eliquis and Sotalol. He remains in normal sinus rhythm on current therapy. On admission to rehab patient still has a Ghotra catheter. Reports inability to void after catheter removal postop due to past history of prostate hypertrophy. Catheter is draining clear yellow urine denies any pain or discomfort. We will attempt a voiding trial in the near future, if unsuccessful will have him evaluated by urology outpatient. Left hip incision is well approximated with anand intact. There is moderate amount of serous drainage from the incision. No erythema, induration, local tenderness is appreciated on exam. He also developed a pressure injury to his coccyx, likely due to incontinence. We will have wound care follow. He plans to return back to [facility] at discharge. At baseline he isambulatory with a walker, also uses electric scooter for community distances. Interval history: Patient examined while sitting in wheelchair. Patient is resting comfortably. No overnight events reported. Patient has no complaints. All questions are answered. Chronic conditions stable. Review of Systems <Brandi Mccain DO, RES - Last Filed: 05/29/21 12:04> Review of Systems Review of systems: Constitutional: No fever or weight loss. Eyes: No visual changes or eye pain. Ear, Nose and throat: No congestion, sore throat, sinusitis or ear pain. Cardiovascular: Reports pedal edema. No palpitations, dyspnea on exertion,or syncope. Respiratory: No shortness of breath, cough, congestion, wheezing or sputum production. Gastrointestinal: No abdominal pain, hematemesis, melena, nausea, vomiting or diarrhea. Genitourinary: No dysuria, urgency, or burning with urination. Musculoskeletal: [Complains of arthralgias, joint swelling and limited range of motion. Skin: Reports sores.. Neurologic: No headache, vertigo, weakness, numbness or tingling. Exam <Brandi Mccain DO, RES - Last Filed: 05/29/21 12:04> Physical Exam Vital Signs: Temp Pulse Resp BP Pulse Ox 97.7 F 67 16 114/67 95 05/29/21 05:00 05/29/21 08:41 05/29/21 05:00 05/29/21 05:00 05/29/21 05:00 Narrative: CONSTITUTIONAL: No apparent distress. Alert, oriented. HEAD: Normocephalic, atraumatic. EYES: Sclera clear. Pupils equal and reactive. Conjunctiva normal. ENT: External nose normal. No rhinorrhea. NECK: Neck supple. No adenopathy. LUNGS: No distress. Lungs clear bilaterally. Symmetric chest rise. No wheezes, rales or rhonchi. CARDIOVASCULAR: Regular rate and rhythm. No murmurs, rubs or gallops. ABDOMEN: Soft, non-tender, non-distended. Normal bowel sounds. MSK: No midline or paraspinal tenderness. Strength 5/5 throughout. SKIN: Intact. No rash. No trauma. NEUROLOGIC: Cranial nerves grossly intact. No focal neurologic signs. PSYCHIATRIC: Normal affect. Objective <Brandi Mccain DO, RES - Last Filed: 05/29/21 12:04> Labs CBC & Chem 7: 05/28/21 05:59 05/28/21 05:59 Medications and Allergies Allergies and Active Meds: Allergies No Known Allergies Allergy (Verified 05/05/21 16:03) Active Medications Generic Name Dose Route Start Last Admin Trade Name Freq PRN Reason Stop Dose Admin Acetaminophen 500 mg 05/27/21 15:47 05/29/21 08:40 Acetaminophen 500 Mg Tablet PO 05/27/22 15:46 500 mg Q4H PRN Administration Pain Al Hydrox/Mg Hydrox/Simethicone 30 ml 05/27/21 15:47 05/28/21 22:01 Mag Hydrox/Al Hydrox/Simeth 30 Ml Udc PO 05/27/22 15:46 30 ml Q4H PRN Administration Indigestion Apixaban 5 mg 05/27/21 21:00 05/29/21 08:41 Apixaban 5 Mg Tablet PO 05/27/22 20:59 5 mg BID EARLENE Administration Ascorbic Acid 500 mg 05/27/21 17:00 05/29/21 08:39 Ascorbic Acid 500 Mg Tablet PO 05/27/22 16:59 500 mg BID.WITH.MEALS EARLENE Administration Bisacodyl 10 mg 05/27/21 15:47 Bisacodyl 10 Mg Supp.Rect [place] 05/27/22 15:46 DAILY PRN Constipation Calcium Carbonate 500 mg 05/27/21 17:00 05/29/21 08:42 Calcium Carbonate 500 Mg Tablet PO 05/27/22 16:59 500 mg BID.WITH.MEALS EARLENE Administration Digoxin 125 mcg 05/28/21 09:00 05/29/21 08:41 Digoxin 125 Mcg Tablet PO 05/28/22 08:59 125 mcg QAM EARLENE Administration Docusate Sodium 100 mg 05/27/21 15:47 05/28/21 15:03 Docusate 100 Mg Capsule PO 05/27/22 15:46 100 mg BID PRN Administration Constipation Docusate Sodium 283 mg 05/27/21 15:47 Docusate Enema 283 Mg/5 Ml Enema [place] 05/27/22 15:46 DAILY PRN Constipation Finasteride 5 mg 05/28/21 09:00 05/29/21 08:43 Finasteride 5 Mg Tablet PO 05/28/22 08:59 5 mg QAM EARLENE Administration Gabapentin 300 mg 05/27/21 21:00 05/29/21 08:41 Gabapentin 300 Mg Capsule PO 05/27/22 20:59 300 mg BID EARLENE Administration Guaifenesin/Dextromethorphan 10 ml 05/27/21 16:25 Guaif/Dextromethorphan Syrup 10 Ml Udc PO 05/27/22 16:24 QID PRN Cough Hyoscyamine 0.125 mg 05/27/21 16:25 Hyoscyamine Sulfate 0.125 Mg Tab.Rapdis PO QID PRN Spasms Lact Acid/Bifidobact/Lact [place]/Streptoc Th 1 cap 05/28/21 09:00 05/29/21 08:41 L. Acidophilus/Strept/La P-Carlos 1 Cap Capsule PO 05/28/22 08:59 1 cap QAM EARLENE Administration Lactulose 30 gm 05/27/21 15:47 05/28/21 15:03 Lactulose 20 Gm/30 Ml Udc PO 05/27/22 15:46 30 gm DAILY PRN Administration Constipation Levetiracetam 500 mg 05/27/21 21:00 05/29/21 08:39 Levetiracetam 500 Mg Tablet PO 05/27/22 20:59 500 mg BID EARLENE Administration Midodrine 10 mg 05/27/21 17:00 05/29/21 06:22 Midodrine 5 Mg Tablet PO 05/27/22 16:59 10 mg TID.7A.12P.5P EARLENE Administration Mirtazapine 30 mg 05/27/21 22:00 05/28/21 22:00 Mirtazapine 30 Mg Tablet PO 05/27/22 21:59 30 mg QHS EARLENE Administration Nystatin 1 applic 05/28/21 09:00 05/29/21 08:42 Nystatin 100,000 Unit/Gram Powder 15 Gm Bottle TOPICAL 05/28/22 08:59 1 applic DAILY EARLENE Administration Omeprazole 40 mg 05/28/21 09:00 05/29/21 08:39 Omeprazole 20 Mg Capsule.Dr PO 05/28/22 08:59 40 mg QAM EARLENE Administration Oxycodone HCl 5 mg 05/27/21 16:25 05/29/21 08:38 Oxycodone Ir 5 Mg Tablet PO 5 mg Q4HR PRN Administration Pain Scale 6 - 10 Sennosides 2 tab 05/28/21 12:00 05/28/21 12:25 Sennosides 8.6 Mg Tablet PO 05/28/22 11:59 2 tab DAILY@12 EARLENE Administration Sodium Chloride 0 ml 05/27/21 15:47 Sodium Chloride 0.9 % 10 Ml Syringe IV-PUSH 05/27/22 15:46 PRN PRN Flush Sotalol HCl 60 mg 05/27/21 21:00 05/29/21 08:39 Sotalol 120 Mg Tablet PO 05/27/22 20:59 60 mg BID EARLENE Administration Tamsulosin HCl 0.4 mg 05/28/21 22:00 05/28/21 22:00 Tamsulosin 0.4 Mg Cap.Er.24h PO 05/28/22 21:59 0.4 mg QHS EARLENE Administration Vitamin D 50 mcg 05/28/21 09:00 05/29/21 08:39 Cholecalciferol 25 Mcg (1,000 Units) Tablet PO 05/28/22 08:59 50 mcg QAM EARLENE Administration Assessment/Plan <Brandi Mccain DO, RES - Last Filed: 05/29/21 12:04> Assessment/Plan (1) Impaired mobility and activities of daily living: Code(s): Z74.09 - Other reduced mobility; Z78.9 - Other specified health status Status: Acute (2) S/P total left hip arthroplasty: Code(s): Z96.642 - Presence of left artificial hip joint Status: Acute (3) BPH (benign prostatic hyperplasia): Code(s): N40.0 - Benign prostatic hyperplasia without lower urinary tract symptoms Status: Acute (4) Paroxysmal A-fib: Code(s): I48.0 - Paroxysmal atrial fibrillation Status: Acute (5) Coronary artery disease: Code(s): I25.10 - Atherosclerotic heart disease of [place] coronary artery without angina pectoris Status: Acute (6) Hyperlipidemia: Code(s): E78.5 - Hyperlipidemia, unspecified Status: Acute (7) Pressure injury of coccygeal region, stage 2: Code(s): L89.152 - Pressure ulcer of sacral region, stage 2 Status: Acute Plan Patient is a 75-year-old male admitted to the inpatient rehabilitation for functional decline status post total left knee arthroplasty complicated by new onset A. fib postop. He is in normal sinus rhythm and on current management. Monitor left hip incision for signs of infection. Continue wound care to evaluate and treat coccyx ulcer and continue to encourage mobilization and frequent postural changes. Patient able to ambulate 5 feet with DEP. We will continue gait and balance retraining. Continue functional training and self-care and home management including activities of daily living and instrumental activities of daily living. Discharge plan is back to [facility] in 7 to 10 days. <Horace Palafox MD - Last Filed: 05/29/21 15:36> Assessment/Plan (1) Impaired mobility and activities of daily living: (2) S/P total left hip arthroplasty: (3) BPH (benign prostatic hyperplasia): (4) Paroxysmal A-fib: (5) Coronary artery disease: (6) Hyperlipidemia: (7) Pressure injury of coccygeal region, stage 2: Plan Patient is a 75-year-old male admitted to the inpatient rehabilitation for functional decline status post total left knee arthroplasty complicated by new onset A. fib postop. He is in normal sinus rhythm and on current management. Monitor left hip incision for signs of infection. Continue wound care to evaluate and treat coccyx ulcer and continue to encourage mobilization and frequent postural changes. Patient able to ambulate 5 feet with DEP. We will continue gait and balance retraining. Continue functional training and self-care and home management including activities of daily living and instrumental activities of daily living. Discharge plan is back to [facility] in 7 to 10 days. Trend BP May need betapace adjusted Hospitalist to assist with management of comorbid medical conditions Pain control: OARRS reviewed. Wean off opioid. Bowel and bladder: Ghotra in place. D/C for voiding trial as mobility improves Skin: Stage 2 pressure ulcer coccyx, present on rehab admit. DVT prophylaxis: Covered with eliquis Functional status: Dependent to ambulate. Discharge planning: To [facility] most likely, possibly 2 weeks Documented By: Brandi Mccain DO, RES 05/29/21 1 154 Signed By: <Electronically signed by DO JAYDA Mccain> 05/29/21 1204 <Electronically signed by Horace Palafox MD> 05/29/21 1538 [facility] Work Phone: 1(879) 994-904304-22-2022 History and physical note Author Horace Palafox [facility] May 29, 2021 12:10pm Note Date/Time May 28, 2021 9:2 6am [facility] [address] [place] [address] Physiatry (Rehab) H&P Signed Patient: Angella Pradhan MR#: [id number] : 1945 Acct:[id number] Age/Sex: 75 / M Adm Date: 2 Loc: Room: [address] [place] [address] Type : ADM IN Attending Dr: Horace Palafox MD Copies to: MD Cesilia Gonsalves, CASIMIRO Palafox MD~ <Cesilia Rosales APRN - Last Filed: 05/28/21 10:12> Date of Service: 05/28/2021 HPI <Cesilia Rosales APRN - Last Filed: 05/28/21 10:12> The patient was seen and examined on: 05/28/21 History of Present Illness: Mr. Pradhan is a 75 year old male with a past medical history of arthritis, BPH,CAD, MO s/p coronary artery stenting, who is admitted to rehabilitation for functional decline status post elective left total hip arthroplasty. He reports a longstanding history of bilateral hip pain as a result of [id number] . The surgery was planned to be performed sometime last year however he sustained a myocardial infarction in July 2020, which required stenting and resulted in prolonged recovery. He has been residing at [facility] since his heart attack. He is telling me as soon as he is finishedwith rehabilitation and medically cleared by cardiology, he will have his right hip replaced also. Postop course was complicated by a new onset atrial fibrillation which spontaneously converted to a.fib. Cardiology was consulted. He was placed on Eliquis and Sotalol. He remains in normal sinus rhythm on current therapy. On admission to rehab patient still has a Ghotra catheter. Reports inability to void after catheter removal postop due to past history of prostate hypertrophy. Catheter is draining clear yellow urine denies any pain or discomfort. We will attempt a voiding trial in the near future, if unsuccessful will have him evaluated by urology outpatient. Left hip incision is well approximated with anand intact. There is moderate amount of serous drainage from the incision. No erythema, induration, local tenderness is appreciated on exam. He also developed a pressure injury to his coccyx, likely due to incontinence. We will have wound care follow. He plans to return back to [facility] at discharge. At baseline he isambulatory with a walker, also uses electric scooter for community distances. PMFSH <Cesilia Rosales APRN - Last Filed: 05/28/21 10:12> Vaccinated for COVID-19?: Yes Medical History Arthritis BPH (benign prostatic hyperplasia) Coronary artery disease Hyperlipidemia Left hip pain Myocardial infarct Seizure single episode 01/31/21 Surgical History Hx of carpal tunnel repair right Hx of hernia repair Stented coronary artery 4 stents Family History Father H/O heart artery stent Mother Medical history unknown Social History Smoking Status: Former smoker Tobacco Type: cigarettes and pipe Substance Use Type: None Review of Systems <Cesilia Rosales APRN - Last Filed: 05/28/21 10:12> Constitutional Constitutional: Denies fever(s) and Denies weakness Eyes Eyes: Reports system reviewed and no additional complaints, except as documented ENT Ears, Nose, Mouth, and Throat: Reports system reviewed and no additional complaints, except as documented Cardiovascular Cardiovascular: Denies chest pain, Denies dyspnea on exertion and Reports pedal edema Respiratory Respiratory: Reports system reviewed and no additional complaints, except as documented Gastrointestinal Gastrointestinal: Reports constipation Genitourinary Genitourinary: Reports system reviewed and no additional complaints, except as documented Musculoskeletal Musculoskeletal: Reports arthralgias, Reports joint swelling and Reports limitedrange of motion Integumentary/Breasts Skin/Breast: Reports sores Neurologic Neurologic: Reports system reviewed and no additional complaints, except as documented Psychiatric Psychiatric: Reports system reviewed and no additional complaints, except as documented Endocrine Endocrine: Reports system reviewed and no additional complaints, except as documented Hematologic/Lymphatic Hematologic/Lymphatic: Reports system reviewed and no additional complaints, except as documented Allergic/Immunologic Allergic/Immunologic: Reports system reviewed and no additional complaints, except as documented Meds <Cesilia Rosales APRN - Last Filed: 05/28/21 10:12> Medications and Allergies Allergies No Known Allergies Allergy (Verified 05/05/21 16:03) Home and Active Meds: Home Medications L.acidop,casei,lactis,rham-B.lact,jas 625 mg (10 billion cell) capsule (AdvancedProbiotic) 1 cap PO QAM 05/05/21 [History Confirmed 05/27/21] cholecalciferol (vitamin D3) 50 mcg (2,000 unit) tablet (Vitamin D3) 50 mcg PO QAM 05/05/21 [History Confirmed 05/27/21] dextromethorphan-guaifenesin 10 mg-100 mg/5 mL oral syrup 10 ml PO QID PRN 05/05/21 [History Confirmed 05/27/21] finasteride 5 mg tablet 5 mg PO QAM 05/05/21 [History Confirmed 05/27/21] gabapentin 300 mg capsule 300 mg PO BID 05/05/21 [History Confirmed 05/27/21] hyoscyamine sulfate 0.125 mg tablet (Levsin) 0.125 mg PO QID PRN 05/05/21 [History Confirmed 05/27/21] levetiracetam 500 mg tablet (Keppra) 500 mg PO BID 05/05/21 [History Confirmed 05/27/21] mirtazapine 30 mg tablet (Remeron) 30 mg PO QHS 05/05/21 [History Confirmed 05/27/21] nystatin 100,000 unit/gram topical powder 1 applic TOPICAL DAILY 05/05/21 [History Confirmed 05/27/21] omeprazole 40 mg capsule,delayed release 40 mg PO QAM 05/05/21 [History Confirmed 05/27/21] oxybutynin chloride 5 mg tablet 5 mg PO QAM 05/05/21 [History Confirmed 05/27/21] tamsulosin 0.4 mg capsule 0.4 mg PO QAM 05/05/21 [History Confirmed 05/27/21] aspirin 81 mg chewable tablet (Children's Aspirin) 81 mg PO BID #0 tab 05/22/21 [Rx Confirmed 05/27/21] oxycodone-acetaminophen 5 mg-325 mg tablet (Percocet) 1 tab PO Q6H PRN 7 Days #28 tab 05/22/21 [Rx] oxycodone-acetaminophen 5 mg-325 mg tablet (Percocet) 1 tab PO Q6H PRN 7 Days #28 tab 05/22/21 [Rx] ticagrelor 90 mg tablet 90 mg PO BID 05/22/21 [History Confirmed 05/22/21] apixaban 5 mg tablet (Eliquis) 5 mg PO BID tab 05/27/21 [Rx Confirmed 05/27/21] ascorbic acid (vitamin C) 500 mg tablet (Vitamin C) 500 mg PO BID.WITH.MEALS tab 05/27/21 [Rx Confirmed 05/27/21] calcium carbonate 500 mg calcium (1,250 mg) tablet 500 mg PO BID.WITH.MEALS 05/27/21 [History Confirmed 05/27/21] digoxin 125 mcg (0.125 mg) tablet 125 mcg PO QAM 05/27/21 [History Confirmed 05/27/21] midodrine 5 mg tablet 10 mg PO TID.7A.12P.5P tab 05/27/21 [Rx Confirmed 05/27/21] oxycodone 5 mg tablet 5 mg PO Q4HR PRN tab 05/27/21 [Rx Confirmed 05/27/21] sotalol 120 mg tablet (Sotalol AF) 60 mg PO BID tab 05/27/21 [Rx Confirmed 05/27/21] Active Medications Acetaminophen (Acetaminophen 500 Mg Tablet) 500 mg PO Q4H PRN PRN Reason: Pain Stop: 05/27/22 15:46 Al Hydrox/Mg Hydrox/Simethicone (Mag Hydrox/Al Hydrox/Simeth 30 Ml Udc) 30 ml PO Q4H PRN PRN Reason: Indigestion Stop: 05/27/22 15:46 Apixaban (Apixaban 5 Mg Tablet) 5 mg PO BID [facility] Stop: 05/27/22 20:59 Last Admin: 05/28/21 08:39 Dose: 5 mg Documented by: Ascorbic Acid (Ascorbic Acid 500 Mg Tablet) 500 mg PO BID.WITH.MEALS [facility] Stop: 05/27/22 16:59 Last Admin: 05/28/21 08:38 Dose: 500 mg Documented by: Bisacodyl (Bisacodyl 10 Mg Supp.Rect) 10 mg [place] DAILY PRN PRN Reason: Constipation Stop: 05/27/22 15:46 Calcium Carbonate (Calcium Carbonate 500 Mg Tablet) 500 mg PO BID.WITH.MEALS [facility] Stop: 05/27/22 16:59 Last Admin: 05/28/21 08:39 Dose: 500 mg Documented by: Digoxin (Digoxin 125 Mcg Tablet) 125 mcg PO QAM EARLENE Stop: 05/28/22 08:59 Last Admin: 05/28/21 08:39 Dose: 125 mcg Documented by: Docusate Sodium (Docusate 100 Mg Capsule) 100 mg PO BID PRN PRN Reason: Constipation Stop: 05/27/22 15:46 Last Admin: 05/27/21 22:04 Dose: 100 mg Documented by: Docusate Sodium (Docusate Enema 283 Mg/5 Ml Enema) 283 mg [place] DAILY PRN PRN Reason: Constipation Stop: 05/27/22 15:46 Finasteride (Finasteride 5 Mg Tablet) 5 mg PO QAM EARLENE Stop: 05/28/22 08:59 Last Admin: 05/28/21 08:41 Dose: 5 mg Documented by: Gabapentin (Gabapentin 300 Mg Capsule) 300 mg PO BID EARLENE Stop: 05/27/22 20:59 Last Admin: 05/28/21 08:38 Dose: 300 mg Documented by: Guaifenesin/Dextromethorphan (Guaif/Dextromethorphan Syrup 10 Ml Udc) 10 ml PO QID PRN PRN Reason: Cough Stop: 05/27/22 16:24 Hyoscyamine (Hyoscyamine Sulfate 0.125 Mg Tab.Rapdis) 0.125 mg PO QID PRN PRN Reason: Spasms Lact Acid/Bifidobact/Lact [place]/Streptoc Th (L. Acidophilus/Strept/La P-Carlos 1 Cap Capsule) 1 cap PO QAM EARLENE Stop: 05/28/22 08:59 Last Admin: 05/28/21 08:40 Dose: 1 cap Documented by: Lactulose (Lactulose 20 Gm/30 Ml Udc) 30 gm PO DAILY PRN PRN Reason: Constipation Stop: 05/27/22 15:46 Levetiracetam (Levetiracetam 500 Mg Tablet) 500 mg PO BID EARLENE Stop: 05/27/22 20:59 Last Admin: 05/28/21 08:38 Dose: 500 mg Documented by: Midodrine (Midodrine 5 Mg Tablet) 10 mg PO TID.7A.12P.5P EARLENE Stop: 05/27/22 16:59 Last Admin: 05/28/21 08:41 Dose: 10 mg Documented by: Mirtazapine (Mirtazapine 30 Mg Tablet) 30 mg PO QHS EARLENE Stop: 05/27/22 21:59 Last Admin: 05/27/21 22:06 Dose: 30 mg Documented by: Nystatin (Nystatin 100,000 Unit/Gram Powder 15 Gm Bottle) 1 applic TOPICAL DAILY EARLENE Stop: 05/28/22 08:59 Last Admin: 05/28/21 08:42 Dose: 1 applic Documented by: Omeprazole (Omeprazole 20 Mg Capsule.) 40 mg PO QAM [facility] Stop: 05/28/22 08:59 Last Admin: 05/28/21 08:39 Dose: 40 mg Documented by: Oxycodone HCl (Oxycodone Ir 5 Mg Tablet) 5 mg PO Q4HR PRN PRN Reason: Pain Scale 6 - 10 Last Admin: 05/27/21 22:05 Dose: 5 mg Documented by: Polyethylene Glycol (Polyethylene Glycol 3350 17 Gm Powd.Pack) 17 gm PO ONCE ONE Stop: 05/28/21 09:14 Sennosides (Sennosides 8.6 Mg Tablet) 2 tab PO DAILY@12 [facility] Stop: 05/28/22 11:59 Sodium Chloride (Sodium Chloride 0.9 % 10 Ml Syringe) 0 ml IV-PUSH PRN PRN PRN Reason: Flush Stop: 05/27/22 15:46 Sotalol HCl (Sotalol 120 Mg Tablet) 60 mg PO BID EARLENE Stop: 05/27/22 20:59 Last Admin: 05/28/21 08:40 Dose: 60 mg Documented by: Tamsulosin HCl (Tamsulosin 0.4 Mg Cap.Er.24h) 0.4 mg PO QHS [facility] Stop: 05/28/22 21:59 Vitamin D (Cholecalciferol 25 Mcg (1,000 Units) Tablet) [facility] [place] [facility] Stop: 05/28/22 08:59 Last Admin: 05/28/21 08:39 Dose: 50 mcg Documented by: Exam <Cesilia Rosales APRN - Last Filed: 05/28/21 10:12> Physical Exam Vital Signs: Temp Pulse Resp BP Pulse Ox 98.4 F 72 16 127/77 95 05/28/21 04:23 05/28/21 08:39 05/28/21 04:23 05/28/21 04:23 05/28/21 04:23 Const General: cooperative, comfortable, no acute distress and well developed Nutritional Appearance: average body habitus Orientation: alert, awake and oriented x3 HEENT Head: normal to inspection, normocephalic and atraumatic Ears: hearing grossly normal bilaterally Mouth: oral mucosae normal Eyes General: appearance normal, both eyes and all related structures Visual Srivastava: normal visual srivastava by confrontation Pupils: PERRL EOM: EOM intact bilaterally Neck Neck: normal visual inspection, full ROM, no lymphadenopathy and trachea midline Chest Chest palpation & inspection: normal inspection of the chest Resp Effort & Inspection: normal respiratory effort, able to speak in complete sentences, symmetric chest movement, no audible wheezes and no cough Auscultation: clear to auscultation bilaterally Cardio Jugular venous pressure: no JVD Palpation: normal PMI Rate: regular rate Rhythm: regular rhythm Heart Sounds: S1 normal and S2 normal GI Inspection: normal to inspection Palpation: soft and no hepatosplenomegaly Auscultation: hyperactive bowel sounds Other: Ghotra catheter in place, draining clear yellow urine. Musc Cervical Spine: normal cervical lordosis and cervical ROM normal Skin Wounds: wounds noted gluteal cleft size and bed not yellow, peeling, not with slough, pink and not necrotic Neuro General: patient alert, patient awake and patient oriented x3 Cranial Nerves: CN's II-XII intact bilaterally Cognition: normal cognition Speech: speech normal Motor: muscle tone normal throughout Sensory Exam: no sensory deficits noted Extrem General: capillary refill normal and edema Laterality: on the left (Foot and leg) Severity: pitting and 2+ Psych Appearance: grossly normal Mental Status: mental status grossly normal Mood: congruent mood Affect: normal affect Speech and Movement: speech and movement normal Attitude: cooperative Thought Process: normal Insight: fair Judgment: fair Results <Cesilia Rosales APRN - Last Filed: 05/28/21 10:12> Labs Labs: Laboratory Results - last 24 hr 05/28/21 05/28/21 05:59 05:59 Corrected WBC 8.1 Uncorrected WBC Count 8.1 RBC 3.60 L Hgb 10.1 L Hct 30.9 L MCV 85.8 MCH 28.0 MCHC 32.7 RDW 14.5 Plt Count 332 MPV 6.8 Neut % (Auto) 54.0 Lymph % (Auto) 20.6 Sumner % (Auto) 18.1 Eos % (Auto) 6.6 Baso % (Auto) 0.7 Neut # (Auto) 4.4 Lymph # (Auto) 1.7 Sumner # (Auto) 1.5 H Eos # (Auto) 0.5 H Baso # (Auto) 0.1 Nucleated RBC % (auto) 0.1 PHA Creatinine Clear 84.00 Sodium 139 Potassium 3.7 Chloride 105 Carbon Dioxide 25.9 BUN 7 L Creatinine 0.74 Est GFR ( Amer) > 60 Est GFR (Non-Af Amer) > 60 Glucose 99 Calcium 8.1 L Total Bilirubin 0.4 AST 18 ALT 16 Alkaline Phosphatase 56 Total Protein 4.9 L Albumin 1.8 L Globulin 3.1 Albumin/Globulin Ratio 0.6 Prealbumin 7.4 L Additional Results Results Comment: I reviewed clinical lab tests, radiology reports and obtained and summated medical records and have ordered follow up lab tests and imaging studies as needed for rehabilitation care. Functional Status <Cesilia Rosales APRN - Last Filed: 05/28/21 10:12> Prior Level of Function Narrative: Ambulates with walker at baseline, uses electric scooter for community distances. Current Level of Function Narrative: Stand and pivot with min assist, ambulates 3 feet using wheeled walker. <Horace Palafox MD - Last Filed: 05/29/21 12:10> Individualized Plan of Care Plan of Care: Individualized Overall Plan of Care: Admit Date/Time: May 27 Expected LOS: 14 days Expected Discharge Destination: Home Rehabilitation [facility]: Primary Diagnosis: Left total hip arthroplasty Patient?s/Family?s anticipated outcomes/personal goals: To have patient become more independent and to return home. Medical/ Functional Prognosis: Good Anticipated Functional Outcomes/Goals and Interventions: -Therapy Functional Outcome/Goal: Mobility/Locomotion: Patient likely to be min assist with ambulation with assistive device. Anticipated interventions: Physician management, PT, Nutrition, Rehab Nursing - Therapy Functional Outcome/Goal: Self Care: Patient likely to be functionally min-supervision for activities of daily living using assistive / adaptive equipment as needed. Anticipated interventions: Physician management, PT, OT, Nutrition, Rehab Nursing - Therapy Functional Outcome/Goal: Bladder/Bowel Management: Patient likely to be modified independent with bladder care and independent with bowel care. Anticipated interventions: Physician management, PT, OT, Nutrition, Rehab Nursing -Therapy Functional Outcome/Goal: Communication/Cognition: Patient will be able to communicate fully and be safe cognitively. Anticipated interventions: Physician management, PT, OT, Nutrition, Rehab Nursing -Therapy Functional Outcome/Goal: Patient will have adequate pain control less than 4/10 and understand how to take pain medications to achieve pain control. Anticipated interventions: Physician management, PT, OT, Nutrition, Rehab Nursing -Therapy Functional Outcome/Goal: Patient will improve endurance to be able to tolerate all daily self care activities and avocational activities. Anticipated interventions: Physician management, PT, OT, Nutrition, Rehab Nursing -Therapy Functional Outcome/Goal: Patient will understand and assimilate / integrate education regarding management of their medical conditions to maintainhealth and wellbeing. Anticipated interventions: Physician management, PT, OT, Nutrition, Rehab Nursing Required Therapy PT: 1.5 hour per day at least 5 days per week with additional therapy on as needed basis. Comments: PT to improve pt's strength, endurance, bed mobility, transfers (sit-stand), standing balance, gait quality on level surfaces and stairs, coordination and functional ADL skills. Will also work to improve pt's safety awareness during transfers and ambulation. OT: 1.5 hour per day at least 5 days per week with additional therapy on as needed basis. Comments: OT for basic ADL re-training (bathing, dressing, toileting, continence, grooming, feeding, transferring), to increase activity tolerance andfunctional mobility and to evaluate for adaptive and assistive devices. Will work to improve pt's endurance and educate pt on fall prevention and energy conservation techniques-pacing strategies and proper breathing techniques duringfunctional tasks. Other: Nutrition, Rehab nursing, Wound, P[employer] RATION[facility] FOR IRF ADMISSION: Patient has both medical and functional complexities that require 24 hour daily monitoring and intervention from Refurbish Technician as well as other consulting physicians including internal medicine as well as 24 hour daily senior quality engineer nursing - for medical safe / optimal management. Patient requires interdisciplinary therapy team rehabilitation care including OT, PT, SW, Psychology, Rehab Nursing, requires and can tolerate at least 3 hours of daily OT and PT therapy at least 5 days weekly. The following medical conditions significantly impact the rehabilitation process and are beingaddressed daily and can not be managed at home or in a lesser intense medical setting: Refer to above problem oriented plan of care Assessment/Plan <Cesilia Rosales APRN - Last Filed: 05/28/21 10:12> (1) Paroxysmal A-fib: Plan: New onset postoperatively. Placed on sotalol and Eliquis. Currently in normal sinus rhythm. Code(s): I48.0 - Paroxysmal atrial fibrillation Status: Acute (2) Hyperlipidemia: Plan: Continue current management. Code(s): E78.5 - Hyperlipidemia, unspecified Status: Acute (3) S/P total left hip arthroplasty: Plan: Monitor left hip incision for signs of infection. Noted moderate amount of serous drainage on admission. Incision is well approximated, anand intact, noerythema or local tenderness. Code(s): Z96.642 - Presence of left artificial hip joint Status: Acute (4) Pressure ulcer, stage 1: Plan: Pressure injury to coccyx. We will consult wound care to evaluate and treat. Code(s): L89.91 - Pressure ulcer of unspecified site, stage 1 Status: Acute (5) BPH (benign prostatic hyperplasia): Plan: History of BPH. Currently has Ghotra catheter in place, draining clear yellow urine, no discomfort per patient report. We will attempt a voiding trial, ifunsuccessful outpatient follow-up with urology. Code(s): N40.0 - Benign prostatic hyperplasia without lower urinary tract symptoms Status: Acute (6) Impaired mobility and activities of daily living: Plan: PT/OT to evaluate and treat Code(s): Z74.09 - Other reduced mobility; Z78.9 - Other specified health status Status: Acute Plan 75-year-old white male admitted to inpatient rehabilitation for functional decline status post total left knee arthroplasty complicated by new onset A. fibpostoperatively. He is in normal sinus rhythm on current management. * Continue Eliquis 5 mg p.o. twice daily * Continue sotalol 60 mg p.o. twice daily for A. fib per cardiology orders. Had a brief episode of hypotension while admitted inpatient. Monitor heart rate and blood pressure. * Monitor left hip incision for signs of infection. Noted moderate serous drainage. * Wound care to evaluate and treat coccyx ulcer. * Weightbearing as tolerated to left lower extremity * Will attempt Ghotra removal and voiding trial in a few days * No bowel movement in 4 to 5 days. MiraLAX time x 1 ordered, Senokot twice daily scheduled Patient education Pressure ulcer prophylaxis; encourage mobilization, frequent postural changes, pressure-relief techniques DVT prophylaxis: Eliquis 5 mg p.o. twice daily Encourage deep breathing exercise incentive spirometry. Monitor bladder. Toileting schedule. Continue current bladder management, with scans as needed and CIC if needed. Start bowel care program every day to obtain continence, prevent ileus. Maintain fall precautions Gait and balance retraining Functional training and self-care and home management, including activities of daily living and instrumental activities of daily living Provision of the necessary gait aids and functional adaptive equipment to enhance the patient's a functional sikhism Ensure adequate nutrition and hydration Sleep: Reports no issues Pain: Reports well controlled on current regimen Discharge planning: Back to [facility] in 7 to 10 days. I spent greater than 30 minutes for services, including [id number] encounter with the patient, discussion of the case, plan of care, and exam; and [id number] activities, such as reviewing pertinent consultant electronics documentation, recent therapy notes, laboratory and radiology studies, and discussion of case with care team including physician, nursing, case management director, and therapists. More than 50 % of time was spent on patient/family counseling or coordination ofcare. <Horace Palafox MD - Last Filed: 05/29/21 12:10> (1) Paroxysmal A-fib: (2) Hyperlipidemia: (3) S/P total left hip arthroplasty: Plan: Monitor left hip incision for signs of infection. Noted moderate amount of serous drainage on admission. Incision is well approximated, anand intact, noerythema or local tenderness. PT to improve pt's strength, endurance, bed mobility, transfers (sit-stand), standing balance, gait quality on level surfaces and stairs, coordination and functional ADL skills. Will also work to improve pt's safety awareness during transfers and ambulation. OT for basic ADL re-training (bathing, dressing, toileting, continence, grooming, feeding, transferring), to increase activity tolerance and functional mobility and to evaluate for adaptive and assistive devices. Will work to improve pt's endurance and educate pt on fall prevention and energy conservationtechniques-pacing strategies and proper breathing techniques during functional tasks. Patient education Pressure ulcer prophylaxis; encourage mobilization, frequent postural changes, pressure-relief techniques DVT prophylaxis Encourage deep breathing exercise incentive spirometry. Monitor bladder. Toileting schedule. Continue current bladder management, with scans as needed and CIC if needed. Start bowel care program every day to obtain continence, prevent ileus. Maintain fall precautions Gait and balance retraining Provision of the necessary gait aids and functional adaptive equipment to enhance the patient's a functional sikhism Encourage deep breathing exercises and incentive spirometry RD evaluation Ensure adequate nutrition and hydration Discharge planning. (4) Pressure ulcer, stage 1: (5) BPH (benign prostatic hyperplasia): (6) Impaired mobility and activities of daily living: Plan: I completed a substantive portion of this encounter, the medical decision makingportion of this note in its entirety, including Allied health note review, nursing note review, consultant electronics note review, discussion with nursing and case management, and more than 50% of my time was spent on counseling and coordination of care, time spent 45 minutes. This was completed on 05/28/21, at 10:30. Patient was personally seen by me, Dr. Palafox, on the day of encounter, reviewed the history and the relevant portions of the chart, including current orders, allied health and consultant electronics notes, labs/imaging and performed fletcher elements of exam and I formulated the plan of care and facilitated the medical decision making and confirmed the nurse practitioner note, as above Documented By: Cesilia Rosales APRN 05/28/21 1 021 Signed By: <Electronically signed by CASIMIRO Rosales> 05/28/21 1012 <Electronically signed by Horace Palafox MD> 05/29/21 1210 [facility] Work Phone: 1(887) 331-152204-22-2022 Consult note Author Darren Woods [facility] May 29, 2021 5:16am Note Date/Time May 28, 2021 8:3 1pm [facility] [address] [place] [address] Hospitalist Consult Note Signed Patient: Angella Pradhan MR#: [id number] : 1945 Acct:[id number] Age/Sex: 75 / M Adm Date: 2 Loc: Room: [address] [place] [address] Type : ADM IN Attending Dr: Horace Palafox MD Copies to: Farhana Callaway, BILINGUAL TEACHER ASSISTANT-C MD Horace Gonsalves MD Mazhar Rahman, MD~ HPI DATE OF CONSULTATION: 05/28/21 REQUESTING PROVIDER: Horace Palafox Consult Narrative Reason for Consult: BPH, CAD, arthritis, new onset A. fib, s/p GAVIN HPI: Patient is a pleasant 75-year-old male with PMH of arthritis, BPH, CAD s/p coronary artery stenting, seizure (January 2021) who is admitted to the acute inpatient rehab unit. 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 He was followed by orthopedic surgery and, on 05/21, underwent elective right total hip arthroplasty. Postoperative course was complicated by Ángela. cyndi RVR for which she was followed by cardiology. He was initiated on Eliquis, digoxin and sotalol. He converted back to normal sinus rhythm prior to discharge. He also had some difficulty with urinary retention, failed voiding trial for which Ghotra catheter had to be replaced. He was evaluated by PT/OT with recommendation for further rehab. Upon medical clearance, patient was transferred to the acute inpatient rehab unit. Hospitalist service has been placed on consult for medical comanagement during the patient's inpatient admission. Patient seen and examined in his room on 5T. Is resting in bed at time of exam. He is drowsy, but does arouse to verbal stimuli. He denies headache or dizziness. Denies chest pain, palpitations, shortness of breath. No abdominal pain or nausea. He does have some expected postsurgical left hip discomfort. Left hip with dressings in place, CDI. Last BM 05/24. He does have Ghotra catheter in place. Mild BLE edema. No calf tenderness. Review of Systems Review of Systems Review of systems: 10 point review of systems was obtained and all are negative unless noted below or in the HPI. PMFSH Vaccinated for COVID-19?: Yes Medical History Arthritis BPH (benign prostatic hyperplasia) Coronary artery disease Hyperlipidemia Left hip pain Myocardial infarct Seizure single episode 01/31/21 Surgical History Hx of carpal tunnel repair right Hx of hernia repair Stented coronary artery 4 stents Family History Father H/O heart artery stent Mother Medical history unknown Social History Smoking Status: Former smoker Tobacco Type: cigarettes and pipe Substance Use Type: None Meds Medications and Allergies Allergies No Known Allergies Allergy (Verified 05/05/21 16:03) Home Medications L.acidop,casei,lactis,rham-B.lact,jas 625 mg (10 billion cell) capsule (AdvancedProbiotic) 1 cap PO QAM 05/05/21 [History Confirmed 05/27/21] cholecalciferol (vitamin D3) 50 mcg (2,000 unit) tablet (Vitamin D3) 50 mcg PO QAM 05/05/21 [History Confirmed 05/27/21] dextromethorphan-guaifenesin 10 mg-100 mg/5 mL oral syrup 10 ml PO QID PRN 05/05/21 [History Confirmed 05/27/21] finasteride 5 mg tablet 5 mg PO QAM 05/05/21 [History Confirmed 05/27/21] gabapentin 300 mg capsule 300 mg PO BID 05/05/21 [History Confirmed 05/27/21] hyoscyamine sulfate 0.125 mg tablet (Levsin) 0.125 mg PO QID PRN 05/05/21 [History Confirmed 05/27/21] levetiracetam 500 mg tablet (Keppra) 500 mg PO BID 05/05/21 [History Confirmed 05/27/21] mirtazapine 30 mg tablet (Remeron) 30 mg PO QHS 05/05/21 [History Confirmed 05/27/21] nystatin 100,000 unit/gram topical powder 1 applic TOPICAL DAILY 05/05/21 [History Confirmed 05/27/21] omeprazole 40 mg capsule,delayed release 40 mg PO QAM 05/05/21 [History Confirmed 05/27/21] oxybutynin chloride 5 mg tablet 5 mg PO QAM 05/05/21 [History Confirmed 05/27/21] tamsulosin 0.4 mg capsule 0.4 mg PO QAM 05/05/21 [History Confirmed 05/27/21] aspirin 81 mg chewable tablet (Children's Aspirin) 81 mg PO BID #0 tab 05/22/21 [Rx Confirmed 05/27/21] oxycodone-acetaminophen 5 mg-325 mg tablet (Percocet) 1 tab PO Q6H PRN 7 Days #28 tab 05/22/21 [Rx] oxycodone-acetaminophen 5 mg-325 mg tablet (Percocet) 1 tab PO Q6H PRN 7 Days #28 tab 05/22/21 [Rx] ticagrelor 90 mg tablet 90 mg PO BID 05/22/21 [History Confirmed 05/22/21] apixaban 5 mg tablet (Eliquis) 5 mg PO BID tab 05/27/21 [Rx Confirmed 05/27/21] ascorbic acid (vitamin C) 500 mg tablet (Vitamin C) 500 mg PO BID.WITH.MEALS tab 05/27/21 [Rx Confirmed 05/27/21] calcium carbonate 500 mg calcium (1,250 mg) tablet 500 mg PO BID.WITH.MEALS 05/27/21 [History Confirmed 05/27/21] digoxin 125 mcg (0.125 mg) tablet 125 mcg PO QAM 05/27/21 [History Confirmed 05/27/21] midodrine 5 mg tablet 10 mg PO TID.7A.12P.5P tab 05/27/21 [Rx Confirmed 05/27/21] oxycodone 5 mg tablet 5 mg PO Q4HR PRN tab 05/27/21 [Rx Confirmed 05/27/21] sotalol 120 mg tablet (Sotalol AF) 60 mg PO BID tab 05/27/21 [Rx Confirmed 05/27/21] Active Medications: Active Medications Generic Name Dose Route Start Last Admin Trade Name Freq PRN Reason Stop Dose Admin Acetaminophen 500 mg 05/27/21 15:47 05/28/21 12:28 Acetaminophen 500 Mg Tablet PO 05/27/22 15:46 500 mg Q4H PRN Administration Pain Al Hydrox/Mg Hydrox/Simethicone 30 ml 05/27/21 15:47 Mag Hydrox/Al Hydrox/Simeth 30 Ml Udc PO 05/27/22 15:46 Q4H PRN Indigestion Apixaban 5 mg 05/27/21 21:00 05/28/21 08:39 Apixaban 5 Mg Tablet PO 05/27/22 20:59 5 mg BID EARLENE Administration Ascorbic Acid 500 mg 05/27/21 17:00 05/28/21 08:38 Ascorbic Acid 500 Mg Tablet PO 05/27/22 16:59 500 mg BID.WITH.MEALS EARLENE Administration Bisacodyl 10 mg 05/27/21 15:47 Bisacodyl 10 Mg Supp.Rect AZ 05/27/22 15:46 DAILY PRN Constipation Calcium Carbonate 500 mg 05/27/21 17:00 05/28/21 08:39 Calcium Carbonate 500 Mg Tablet PO 05/27/22 16:59 500 mg BID.WITH.MEALS EARLENE Administration Digoxin 125 mcg 05/28/21 09:00 05/28/21 08:39 Digoxin 125 Mcg Tablet PO 05/28/22 08:59 125 mcg QAM EARLENE Administration Docusate Sodium 100 mg 05/27/21 15:47 05/28/21 15:03 Docusate 100 Mg Capsule PO 05/27/22 15:46 100 mg BID PRN Administration Constipation Docusate Sodium 283 mg 05/27/21 15:47 Docusate Enema 283 Mg/5 Ml Enema AZ 05/27/22 15:46 DAILY PRN Constipation Finasteride 5 mg 05/28/21 09:00 05/28/21 08:41 Finasteride 5 Mg Tablet PO 05/28/22 08:59 5 mg QAM EARLENE Administration Gabapentin 300 mg 05/27/21 21:00 05/28/21 08:38 Gabapentin 300 Mg Capsule PO 05/27/22 20:59 300 mg BID EARLENE Administration Guaifenesin/Dextromethorphan 10 ml 05/27/21 16:25 Guaif/Dextromethorphan Syrup 10 Ml Udc PO 05/27/22 16:24 QID PRN Cough Hyoscyamine 0.125 mg 05/27/21 16:25 Hyoscyamine Sulfate 0.125 Mg Tab.Rapdis PO QID PRN Spasms Lact Acid/Bifidobact/Lact [place]/Streptoc Th 1 cap 05/28/21 09:00 05/28/21 08:40 L. Acidophilus/Strept/[place] P-Carlos 1 Cap Capsule PO 05/28/22 08:59 1 cap QAM EARLENE Administration Lactulose 30 gm 05/27/21 15:47 05/28/21 15:03 Lactulose 20 Gm/30 Ml Udc PO 05/27/22 15:46 30 gm DAILY PRN Administration Constipation Levetiracetam 500 mg 05/27/21 21:00 05/28/21 08:38 Levetiracetam 500 Mg Tablet PO 05/27/22 20:59 500 mg BID EARLENE Administration Midodrine 10 mg 05/27/21 17:00 05/28/21 12:25 Midodrine 5 Mg Tablet PO 05/27/22 16:59 10 mg TID.7A.12P.5P EARLENE Administration Mirtazapine 30 mg 05/27/21 22:00 05/27/21 22:06 Mirtazapine 30 Mg Tablet PO 05/27/22 21:59 30 mg QHS EARLENE Administration Nystatin 1 applic 05/28/21 09:00 05/28/21 08:42 Nystatin 100,000 Unit/Gram Powder 15 Gm Bottle TOPICAL 05/28/22 08:59 1 applic DAILY EARLENE Administration Omeprazole 40 mg 05/28/21 09:00 05/28/21 08:39 Omeprazole 20 Mg Capsule. PO 05/28/22 08:59 40 mg QAM EARLENE Administration Oxycodone HCl 5 mg 05/27/21 16:25 05/27/21 22:05 Oxycodone Ir 5 Mg Tablet PO 5 mg Q4HR PRN Administration Pain Scale 6 - 10 Sennosides 2 tab 05/28/21 12:00 05/28/21 12:25 Sennosides 8.6 Mg Tablet PO 05/28/22 11:59 2 tab DAILY@12 EARLENE Administration Sodium Chloride 0 ml 05/27/21 15:47 Sodium Chloride 0.9 % 10 Ml Syringe IV-PUSH 05/27/22 15:46 PRN PRN Flush Sotalol HCl 60 mg 05/27/21 21:00 05/28/21 08:40 Sotalol 120 Mg Tablet PO 05/27/22 20:59 60 mg BID EARLENE Administration Tamsulosin HCl 0.4 mg 05/28/21 22:00 Tamsulosin 0.4 Mg Cap.Er.24h PO 05/28/22 21:59 QHS EARLENE Vitamin D 50 mcg 05/28/21 09:00 05/28/21 08:39 Cholecalciferol 25 Mcg (1,000 Units) Tablet PO 05/28/22 08:59 50 mcg QAM EARLENE Administration Exam Physical Exam Vital Signs: Temp Pulse Resp BP Pulse Ox 36.4 C 62 18 117/63 95 05/28/21 15:55 05/28/21 15:55 05/28/21 15:55 05/28/21 15:55 05/28/21 15:55 Narrative: Const General:?cooperative, comfortable, no acute distress and well developed Orientation:?alert, awake and oriented x3 HEENT Head:?normal to inspection, normocephalic and atraumatic Eyes General:?appearance normal, both eyes and all related structures Neck Neck:?normal visual inspection, full ROM, no lymphadenopathy and trachea midline Chest Chest palpation & inspection:?normal inspection of the chest Resp Effort & Inspection:?normal respiratory effort, able to speak in complete sentences, symmetric chest movement Auscultation:?clear to auscultation bilaterally Cardio Rate:?regular rate Rhythm:?regular rhythm Heart Sounds:?S1 normal and S2 normal GI Inspection:?normal to inspection Palpation:?soft and no hepatosplenomegaly Auscultation:?bowel sounds present Ghotra catheter in place, draining clear yellow urine. Musc Cervical Spine:?normal cervical lordosis and cervical ROM normal Skin Wounds:?gluteal cleft, not visualized Neuro General:?patient alert, patient awake and patient oriented x3 Cranial Nerves:?CN's II-XII intact bilaterally Cognition:?normal cognition Speech:?speech normal Motor:?muscle tone normal throughout Sensory Exam:?no sensory deficits noted Extrem General:?edema BLE, L>R Results Lab Results Labs: Laboratory Results - last 72 hr 05/28/21 05:59: PHA Creatinine Clear 84.00, Sodium 139, Potassium 3.7, Chloride 105, Carbon Dioxide 25.9, BUN 7 L, Creatinine 0.74, Est GFR ( Amer) > 60,Est GFR (Non-Af Amer) > 60, Glucose 99, Calcium 8.1 L, Total Bilirubin 0.4, AST 18, ALT 16, Alkaline Phosphatase 56, Total Protein 4.9 L, Albumin 1.8 L, Globulin 3.1, Albumin/Globulin Ratio 0.6, Prealbumin 7.4 L 05/28/21 05:59: Corrected WBC 8.1, Uncorrected WBC Count 8.1, RBC 3.60 L, Hgb 10.1 L, Hct 30.9 L, MCV 85.8, MCH 28.0, MCHC 32.7, RDW 14.5, Plt Count 332, MPV 6.8, Neut % (Auto) 54.0, Lymph % (Auto) 20.6, Sumner % (Auto) 18.1, Eos % (Auto) 6.6, Baso % (Auto) 0.7, Neut # (Auto) 4.4, Lymph # (Auto) 1.7, Sumner # (Auto) 1.5H, Eos # (Auto) 0.5 H, Baso # (Auto) 0.1, Nucleated RBC % (auto) 0.1 A&P - Hospitalist Assessment/Plan (1) Impaired mobility and activities of daily living: (2) Pressure ulcer, stage 1: (3) S/P total left hip arthroplasty: (4) BPH (benign prostatic hyperplasia): (5) Paroxysmal A-fib: (6) Coronary artery disease: (7) Hyperlipidemia: Plan S/P L hip arthroplasty Impaired mobility and ADLs -Further POC for rehab therapy, PT/OT, bowel/bladder regimen, DVT ppx, pain management, wound care per PM&R Afib, new onset -RRR on exam, converted to NSR prior to DC to rehab -Continue digoxin, sotolol, and eliquis Seizure -single episode 01/2021. Maintain seizure precautions, Keppra BPH Urinary retention -Failed voiding trial post-operatively. Ghotra present -Continue finasteride, tamsulosin -Voiding trials per PM&R Orthostatic hypotension -low BPs during medical admission. Initiated on midodrine -continue midodrine Chronic conditions: 1. CAD s/p stent 2020/HTN/HLD-ASA, statin, 2. GERD-omeprazole Documented By: BUNNY Nichols 05/28/21 1 646 Signed By: <Electronically signed by BUNNY Callaway> 05/28/212042 <Electronically signed by Darren Woods MD> 05/29/21 0516 [facility] Work Phone: 1(332) 757-660704-20-2022 Progress note Author Pino Dunbar [facility] May 27, 2021 12:02pm Note Date/Time May 27, 2021 12: 01pm [facility] [address] [place] [address] Cardiology Progress Note Signed Patient: Angella Pradhan MR#: [id number] : 1945 Acct:[id number] Age/Sex: 75 / M Adm Date: 2 Loc: 4N Room: [address] [place] [address] Type : ADM IN Attending Dr: Soham Cash Jr DO Copies to: ~ Date of Service: 05/27/2021 Subjective Principal diagnosis: Paroxysmal atrial fibrillation Interval history: Patient without cardiac complaint. Patient converted back to normal sinus rhythm. QTc interval 452 Exam Physical Exam Vital Signs: Temp Pulse Resp BP Pulse Ox 97.6 F 69 18 94/60 L 94 L 05/27/21 11:53 05/27/21 11:53 05/27/21 04:00 05/27/21 11:53 05/27/21 11:53 Const General: cooperative Neck Neck: supple Lymphatic: no lymphadenopathy noted Resp Effort & Inspection: normal respiratory effort Auscultation: clear to auscultation bilaterally Cardio Palpation: normal PMI Rate: regular rate Rhythm: abnormal rhythm irregularly irregular Heart Sounds: S1 normal and S2 normal Skin General: dry skin Extrem General: full ROM and no clubbing, cyanosis or edema Objective Labs CBC & Chem 7: 05/24/21 04:44 05/24/21 05:58 A&P - Cardiology (1) Atrial fibrillation, persistent: Assessment/Problem Details: Patient converted to normal sinus rhythm. QTc interval is 459 Code(s): I48.19 - Other persistent atrial fibrillation Status: Acute (2) Coronary artery disease: Assessment/Problem Details: With prior PCI Code(s): I25.10 - Atherosclerotic heart disease of [place] coronary artery without angina pectoris Status: Acute (3) Hyperlipidemia: Code(s): E78.5 - Hyperlipidemia, unspecified Status: Acute Plan 1. Continue present management 2. Increase Eliquis to 5 mg twice daily 3. Patient can be transferred to cardiac rehab 4. I will follow on as-needed basis please let me know if I can be of any assistance Documented By: Pino Dunbar MD 05/27/21 1200 Signed By: <Electronically signed by MD Pino Dunbar> 05/27/21 1202 [facility] Work Phone: 1(178) 493-697704-19-2022 Progress note Author Rogers Lujan [facility] May 26, 2021 1:00pm Note Date/Time May 26, 2021 1:0 0pm [facility] [address] [place] [address] Hospitalist Progress Note Signed Patient: Angella Pradhan MR#: [id number] : 1945 Acct:[id number] Age/Sex: 75 / M Adm Date: 2 Loc: 4N Room: [address] [place] [address] Type : ADM IN Attending Dr: Soham Cash Jr DO Copies to: ~ Date of Service: 05/26/2021 Subjective Subjective Narrative: Patient was in the recliner on my encounter this morning, the patient was hypotensive however he's asymptomatic Exam Physical Exam Vital Signs: Temp Pulse Resp BP Pulse Ox 98.2 F 65 20 88/59 L 96 05/26/21 11:34 05/26/21 11:34 05/26/21 11:34 05/26/21 12:11 05/26/21 11:34 Narrative: Constitutional : Cooperative, alert and awake HEENT : Normocephalic, atraumatic, oral mucosa moist Eyes: PEERLA, EOM intact bilaterally Respiratory : Clear to auscultation bilaterally, no wheezes rhonchi or crackles Cardio : Rate regular, rhythm regular, no murmurs or gallops , S1-S2 normal GI : Soft, nontender, no hepatosplenomegaly appreciated Neuro: Alert, awake, oriented x3, no focal motor deficits appreciated, cranial nerves grossly intact, deep tendon reflexes symmetrical bilaterally Extremities: No pedal edema, clubbing or cyanosis present Objective Lab Results CBC & Chem 7: 05/24/21 04:44 05/24/21 05:58 Microbiology Results Microbiology 05/24/21 12:25 Blood - Left Hand Blood Culture - Preliminary No Growth 2 Days Meds Allergies and Active Meds Allergies No Known Allergies Allergy (Verified 05/05/21 16:03) Active Meds: Active Medications Generic Name Dose Route Start Last Admin Trade Name Freq PRN Reason Stop Dose Admin Acetaminophen 1,000 mg 05/25/21 17:00 05/26/21 08:29 Acetaminophen 500 Mg Tablet PO 05/25/22 16:59 1,000 mg Q8H EARLENE Administration Apixaban 2.5 mg 05/23/21 21:00 05/26/21 08:27 Apixaban 2.5 Mg Tablet PO 05/23/22 20:59 2.5 mg BID EARLENE Administration Ascorbic Acid 500 mg 05/22/21 17:00 05/26/21 08:26 Ascorbic Acid 500 Mg Tablet PO 05/22/22 16:59 500 mg BID.WITH.MEALS EARLENE Administration Aspirin 81 mg 05/22/21 21:00 05/26/21 08:22 Aspirin 81 Mg Tablet.Dr PO 05/22/22 20:59 81 mg BID EARLENE Administration Bisacodyl 10 mg 05/24/21 15:54 Bisacodyl 5 Mg Tablet. PO ONCE PRN Constipation Calcium Carbonate 1 tab 05/22/21 21:00 05/26/21 08:26 Calcium Carbonate/Vitamin D3 500 Mg/200 Unit Tablet PO 05/22/22 20:59 1 tab BID EARLENE Administration Digoxin 125 mcg 05/26/21 09:00 05/26/21 08:28 Digoxin 125 Mcg Tablet PO 05/26/22 08:59 125 mcg DAILY EARLENE Administration Diphenhydramine HCl 25 mg 05/22/21 15:54 05/25/21 00:28 Diphenhydramine 25 Mg Capsule PO 05/22/22 15:53 25 mg HS PRN Administration Insomnia Docusate Sodium 100 mg 05/22/21 21:00 05/26/21 08:27 Docusate 100 Mg Capsule PO 05/22/22 20:59 100 mg BID EARLENE Administration Ferrous Sulfate 324 mg 05/22/21 17:00 05/26/21 08:28 Ferrous Sulfate 324 Mg Tablet. PO 05/22/22 16:59 324 mg BID.WITH.MEALS EARLENE Administration Finasteride 5 mg 05/22/21 09:00 05/26/21 08:31 Finasteride 5 Mg Tablet PO 05/22/22 08:59 5 mg DAILY EARLENE Administration Gabapentin 300 mg 05/22/21 09:00 05/26/21 08:27 Gabapentin 300 Mg Capsule PO 05/22/22 08:59 300 mg BID EARLENE Administration Guaifenesin/Dextromethorphan 10 ml 05/22/21 09:00 Guaif/Dextromethorphan Syrup 10 Ml Udc PO 05/22/22 08:59 QID PRN Cough Hydromorphone HCl 0.5 mg 05/22/21 15:54 05/23/21 05:06 Hydromorphone 0.5 Mg/0.5 Ml Syringe IV-PUSH 0.5 mg Q2H PRN Administration Pain Scale 1 - 3 Hydromorphone HCl 1 mg 05/22/21 15:54 Hydromorphone 1 Mg/Ml Syringe IV-PUSH Q2H PRN Pain Scale 4 - 6 Hydromorphone HCl 1.5 mg 05/22/21 15:54 Hydromorphone 1 Mg/Ml Syringe IV-PUSH Q2H PRN Pain Scale 7 - 10 Hyoscyamine 0.125 mg 05/22/21 04:21 Hyoscyamine Sulfate 0.125 Mg Tab.Rapdis PO 05/22/22 04:20 QID PRN Spasms Sodium Chloride 1,000 mls @ 100 mls/hr 05/25/21 14:00 05/26/21 12:21 0.9% Sodium Chloride 1,000 Ml IV 05/25/22 13:59 0 mls/hr .Q10H EARLENE Infusion Lact Acid/Bifidobact/Lact Paracas/Streptoc Th 1 cap 05/22/21 09:00 05/26/21 08:26 L. Acidophilus/Strept/La P-Carlos 1 Cap Capsule PO 05/22/22 08:59 1 cap DAILY EARLENE Administration Levetiracetam 500 mg 05/22/21 09:00 05/26/21 08:28 Levetiracetam 500 Mg Tablet PO 05/22/22 08:59 500 mg BID EARLENE Administration Magnesium Hydroxide 30 ml 05/22/21 15:54 Magnesium Hydroxide Susp 30 Ml Udc PO 05/22/22 15:53 BID PRN Constipation Mineral Oil 1 each 05/25/21 15:54 Mineral Oil ([place]) 1 Each Enema [place] ONCE PRN Constipation Mirtazapine 30 mg 05/22/21 22:00 05/25/21 21:09 Mirtazapine 30 Mg Tablet PO 05/22/22 21:59 30 mg QHS EARLENE Administration Naloxone HCl 0.4 mg 05/22/21 15:54 Naloxone Hcl 0.4 Mg/Ml Vial IV-PUSH 05/22/22 15:53 Q2M PRN Opioid Reversal Nystatin 1 applic 05/22/21 09:00 05/26/21 08:32 Nystatin 100,000 Unit/Gram Powder 15 Gm Bottle TOPICAL 05/22/22 08:59 1 applic DAILY EARLENE Administration Omeprazole 40 mg 05/22/21 09:00 05/26/21 08:20 Omeprazole 20 Mg Capsule.Dr PO 05/22/22 08:59 40 mg DAILY EARLENE Administration Ondansetron HCl 4 mg 05/22/21 15:54 Ondansetron 4 Mg/2 Ml Vial IV-PUSH 05/22/22 15:53 Q6H PRN Nausea Oxybutynin Chloride 5 mg 05/22/21 09:00 05/26/21 08:27 Oxybutynin Chloride 5 Mg Tablet PO 05/22/22 08:59 5 mg DAILY EARLENE Administration Oxycodone HCl 5 mg 05/22/21 15:54 05/26/21 08:21 Oxycodone Ir 5 Mg Tablet PO 5 mg Q4HR PRN Administration Pain Scale 6 - 10 Sodium Chloride 0 ml 05/22/21 08:47 Sodium Chloride 0.9 % 10 Ml Syringe IV-PUSH 05/22/22 08:46 PRN PRN Flush Sodium Chloride 0 ml 05/22/21 09:31 Sodium Chloride 0.9 % 10 Ml Syringe IV-PUSH 05/22/22 09:30 PRN PRN Flush Sodium Chloride 0 ml 05/22/21 22:00 05/26/21 06:51 Sodium Chloride 0.9 % 10 Ml Syringe IV-PUSH 05/22/22 21:59 Not Given QSHIFT EARLENE Sodium Chloride 0 ml 05/22/21 15:54 Sodium Chloride 0.9 % 10 Ml Syringe IV-PUSH 05/22/22 15:53 PRN PRN Flush Sotalol HCl 60 mg 05/25/21 21:00 05/26/21 08:23 Sotalol 120 Mg Tablet PO 05/25/22 20:59 60 mg BID EARLENE Administration Tamsulosin HCl 0.4 mg 05/22/21 09:00 05/26/21 08:22 Tamsulosin 0.4 Mg Cap.Er.24h PO 05/22/22 08:59 0.4 mg DAILY EARLENE Administration Vitamin D 50 mcg 05/22/21 09:00 05/26/21 08:20 Cholecalciferol 25 Mcg (1,000 Units) Tablet PO 05/22/22 08:59 50 mcg DAILY EARLENE Administration A&P - Hospitalist Assessment/Plan (1) Left hip pain: (2) Obesity: (3) Hyperlipidemia: Plan Assessment plan *Left hip fracture status post hip arthroplasty, management per orthopedics *Hypotension, patient is off blood pressure medications except for sotalol, Patient continues to be hypotensive, continues to be on IVF at 100 mils an hour will start the Patient on Midodrin *History of A. fib Heart rate is controlled, continues to be on sotalol/Dig/Eliquis, cardiology is managing Documented By: Rogers Sharma MD 2 1257 Signed By: <Electronically signed by Rogers Sharma MD> 05/26/21 1300 [facility] Work Phone: [phone] Progress note Author Pino Dunbar [facility] May 26, 2021 10:25am Note Date/Time May 26, 2021 10: 24am [facility] [address] [place] [address] Cardiology Progress Note Signed Patient: Angella Pradhan MR#: [id number] : 1945 Acct:[id number] Age/Sex: 75 / M Adm Date: 2 Loc: 4N Room: [address] [place] [address] Type : ADM IN Attending Dr: Soham Cash Jr DO Copies to: ~ Date of Service: 05/26/2021 Subjective Principal diagnosis: Paroxysmal atrial fibrillation Interval history: Patient without cardiac complaint. Patient converted back to normal sinus rhythm. QTc interval 452 Exam Physical Exam Vital Signs: Temp Pulse Resp BP Pulse Ox 97.5 F L 76 20 131/90 94 L 05/26/21 08:01 05/26/21 08:28 05/26/21 08:01 05/26/21 08:01 05/26/21 08:01 Const General: cooperative Neck Neck: supple Lymphatic: no lymphadenopathy noted Resp Effort & Inspection: normal respiratory effort Auscultation: clear to auscultation bilaterally Cardio Palpation: normal PMI Rate: regular rate Heart Sounds: S1 normal and S2 normal Skin General: dry skin Extrem General: full ROM and no clubbing, cyanosis or edema Objective Labs CBC & Chem 7: 05/24/21 04:44 05/24/21 05:58 Labs: Laboratory Results - last 24 hr 05/05/21 16:20 Crossmatch (AHG) See Detail A&P - Cardiology (1) Atrial fibrillation, persistent: Assessment/Problem Details: Patient converted to normal sinus rhythm. QTc interval is acceptable Code(s): I48.19 - Other persistent atrial fibrillation Status: Acute (2) Coronary artery disease: Assessment/Problem Details: With prior PCI Code(s): I25.10 - Atherosclerotic heart disease of [place] coronary artery without angina pectoris Status: Acute (3) Hyperlipidemia: Code(s): E78.5 - Hyperlipidemia, unspecified Status: Acute Plan 1. Continue present management 2. If no bleeding in the next 24 to 48 hours we will increase Eliquis to 5 mg twice daily Documented By: Pino Dunbar MD 05/26/21 1023 Signed By: <Electronically signed by MD Pino Dunbar> 05/26/21 1028 [facility] Work Phone: [phone] Progress note Author Rogers Lujan [facility] May 25, 2021 1:58pm Note Date/Time May 25, 2021 1:5 8pm [facility] [address] [place] [address] Hospitalist Progress Note Signed Patient: Angella Pradhan MR#: [id number] : 1945 Acct:[id number] Age/Sex: 75 / M Adm Date: 2 Loc: Room: [address] [place] [address] Type : REG SDC Attending Dr: Soham Cash Jr DO Copies to: ~ Date of Service: 05/25/2021 Subjective Subjective Narrative: Patient was in bed, stated that his wound was just changed, the patient stated that his pain is under control, the patient stated that he was able to tolerate his physical therapy today, he denied having any symptoms of lightheadedness/chest pain or any other complaints Exam Physical Exam Vital Signs: Temp Pulse Resp BP Pulse Ox 98.1 F 76 14 101/67 95 05/25/21 11:03 05/25/21 11:03 05/25/21 11:03 05/25/21 11:03 05/25/21 11:03 Narrative: Constitutional : Cooperative, alert and awake HEENT : Normocephalic, atraumatic, oral mucosa moist Eyes: PEERLA, EOM intact bilaterally Respiratory : Clear to auscultation bilaterally, no wheezes rhonchi or crackles Cardio : Rate regular, rhythm regular, no murmurs or gallops , S1-S2 normal GI : Soft, nontender, no hepatosplenomegaly appreciated Neuro: Alert, awake, oriented x3, no focal motor deficits appreciated, cranial nerves grossly intact, deep tendon reflexes symmetrical bilaterally Extremities: No pedal edema, clubbing or cyanosis present Objective Lab Results CBC & Chem 7: 05/24/21 04:44 05/24/21 05:58 Microbiology Results Microbiology 05/24/21 12:25 Blood - Left Hand Blood Culture - Preliminary No Growth 1 Day 05/24/21 12:31 Blood - Right Antecubital Blood Culture - Preliminary Meds Allergies and Active Meds Allergies No Known Allergies Allergy (Verified 05/05/21 16:03) Active Meds: Active Medications Generic Name Dose Route Start Last Admin Trade Name Freq PRN Reason Stop Dose Admin Acetaminophen 1,000 mg 05/25/21 17:00 Acetaminophen 500 Mg Tablet PO 05/25/22 16:59 Q8H EARLENE Apixaban 2.5 mg 05/23/21 21:00 05/25/21 08:25 Apixaban 2.5 Mg Tablet PO 05/23/22 20:59 2.5 mg BID EARLENE Administration Ascorbic Acid 500 mg 05/22/21 17:00 05/25/21 08:25 Ascorbic Acid 500 Mg Tablet PO 05/22/22 16:59 500 mg BID.WITH.MEALS EARLENE Administration Aspirin 81 mg 05/22/21 21:00 05/25/21 08:25 Aspirin 81 Mg Tablet.Dr GALINDO 05/22/22 20:59 81 mg BID EARLENE Administration Bisacodyl 10 mg 05/24/21 15:54 Bisacodyl [address]Dr GALINDO ONCE PRN Constipation Calcium Carbonate 1 tab 05/22/21 21:00 05/25/21 08:25 Calcium Carbonate/Vitamin D3 500 Mg/200 Unit Tablet PO 05/22/22 20:59 1 tab BID EARLENE Administration Digoxin 125 mcg 05/26/21 09:00 Digoxin 125 Mcg Tablet PO 05/26/22 08:59 DAILY EARLENE Diphenhydramine HCl 25 mg 05/22/21 15:54 05/25/21 00:28 Diphenhydramine 25 Mg Capsule PO 05/22/22 15:53 25 mg HS PRN Administration Insomnia Docusate Sodium 100 mg 05/22/21 21:00 05/25/21 08:25 Docusate 100 Mg Capsule PO 05/22/22 20:59 100 mg BID EARLENE Administration Ferrous Sulfate 324 mg 05/22/21 17:00 05/25/21 08:25 Ferrous Sulfate 324 Mg Tablet.Dr GALINDO 05/22/22 16:59 324 mg BID.WITH.MEALS EARLENE Administration Finasteride 5 mg 05/22/21 09:00 05/25/21 08:31 Finasteride 5 Mg Tablet PO 05/22/22 08:59 5 mg DAILY EARLENE Administration Gabapentin 300 mg 05/22/21 09:00 05/25/21 08:25 Gabapentin 300 Mg Capsule PO 05/22/22 08:59 300 mg BID EARLENE Administration Guaifenesin/Dextromethorphan 10 ml 05/22/21 09:00 Guaif/Dextromethorphan Syrup 10 Ml Udc PO 05/22/22 08:59 QID PRN Cough Hydromorphone HCl 0.5 mg 05/22/21 15:54 05/23/21 05:06 Hydromorphone 0.5 Mg/0.5 Ml Syringe IV-PUSH 0.5 mg Q2H PRN Administration Pain Scale 1 - 3 Hydromorphone HCl 1 mg 05/22/21 15:54 Hydromorphone 1 Mg/Ml Syringe IV-PUSH Q2H PRN Pain Scale 4 - 6 Hydromorphone HCl 1.5 mg 05/22/21 15:54 Hydromorphone 1 Mg/Ml Syringe IV-PUSH Q2H PRN Pain Scale 7 - 10 Hyoscyamine 0.125 mg 05/22/21 04:21 Hyoscyamine Sulfate 0.125 Mg Tab.Rapdis PO 05/22/22 04:20 QID PRN Spasms Sodium Chloride 1,000 mls @ 100 mls/hr 05/25/21 14:00 0.9% Sodium Chloride 1,000 Ml IV 05/25/22 13:59 .Q10H EARLENE Lact Acid/Bifidobact/Lact [place]ac[place]/Streptoc Th 1 cap 05/22/21 09:00 05/25/21 08:40 L. Acidophilus/Strept/La P-Carlos 1 Cap Capsule PO 05/22/22 08:59 1 cap DAILY EARLENE Administration Levetiracetam 500 mg 05/22/21 09:00 05/25/21 08:24 Levetiracetam 500 Mg Tablet PO 05/22/22 08:59 500 mg BID EARLENE Administration Magnesium Hydroxide 30 ml 05/22/21 15:54 Magnesium Hydroxide Susp 30 Ml Udc PO 05/22/22 15:53 BID PRN Constipation Mineral Oil 1 each 05/25/21 15:54 Mineral Oil ([place]) 1 Each Enema [place] ONCE PRN Constipation Mirtazapine 30 mg 05/22/21 22:00 05/24/21 22:32 Mirtazapine 30 Mg Tablet PO 05/22/22 21:59 30 mg QHS EARLENE Administration Naloxone HCl 0.4 mg 05/22/21 15:54 Naloxone Hcl 0.4 Mg/Ml Vial IV-PUSH 05/22/22 15:53 Q2M PRN Opioid Reversal Nystatin 1 applic 05/22/21 09:00 05/24/21 08:40 Nystatin 100,000 Unit/Gram Powder 15 Gm Bottle TOPICAL 05/22/22 08:59 1 applic DAILY EARLENE Administration Omeprazole 40 mg 05/22/21 09:00 05/25/21 08:25 Omeprazole 20 Mg Capsule.Dr PO 05/22/22 08:59 40 mg DAILY EARLENE Administration Ondansetron HCl 4 mg 05/22/21 15:54 Ondansetron 4 Mg/2 Ml Vial IV-PUSH 05/22/22 15:53 Q6H PRN Nausea Oxybutynin Chloride 5 mg 05/22/21 09:00 05/25/21 08:25 Oxybutynin Chloride 5 Mg Tablet PO 05/22/22 08:59 5 mg DAILY EARLENE Administration Oxycodone HCl 5 mg 05/22/21 15:54 05/25/21 08:17 Oxycodone Ir 5 Mg Tablet PO 5 mg Q4HR PRN Administration Pain Scale 6 - 10 Sodium Chloride 0 ml 05/22/21 08:47 Sodium Chloride 0.9 % 10 Ml Syringe IV-PUSH 05/22/22 08:46 PRN PRN Flush Sodium Chloride 0 ml 05/22/21 09:31 Sodium Chloride 0.9 % 10 Ml Syringe IV-PUSH 05/22/22 09:30 PRN PRN Flush Sodium Chloride 0 ml 05/22/21 22:00 05/25/21 05:53 Sodium Chloride 0.9 % 10 Ml Syringe IV-PUSH 05/22/22 21:59 10 ml QSHIFT EARLENE Administration Sodium Chloride 0 ml 05/22/21 15:54 Sodium Chloride 0.9 % 10 Ml Syringe IV-PUSH 05/22/22 15:53 PRN PRN Flush Sotalol HCl 60 mg 05/25/21 21:00 Sotalol 120 Mg Tablet PO 05/25/22 20:59 BID EARLENE Tamsulosin HCl 0.4 mg 05/22/21 09:00 05/25/21 08:24 Tamsulosin 0.4 Mg Cap.Er.24h PO 05/22/22 08:59 0.4 mg DAILY EARLENE Administration Vitamin D 50 mcg 05/22/21 09:00 05/25/21 08:24 Cholecalciferol 25 Mcg (1,000 Units) Tablet PO 05/22/22 08:59 50 mcg DAILY EARLENE Administration A&P - Hospitalist Assessment/Plan (1) Left hip pain: (2) Obesity: (3) Hyperlipidemia: Plan Assessment plan *Left hip fracture status post hip arthroplasty, management per orthopedics *Hypotension, patient is off blood pressure medications except for sotalol, willstatus post 500 cc bolus We will start patient on 100 mL maintenance IV fluids *History of A. fib Heart rate is controlled, continues to be on sotalol/Eliquis, cardiology is managing Documented By: Rogers Sharma MD 2 1356 Signed By: <Electronically signed by Rogers Sharma MD> 05/25/21 1358 [facility] Work Phone: [phone] 146-562204-18-2022 Progress note Author Pino Dunbar [facility] May 25, 2021 12:00pm Note Date/Time May 25, 2021 12: 00pm [facility] [address] [place] [address] Cardiology Progress Note Signed Patient: Angella Pradhan MR#: [id number] : 1945 Acct:[id number] Age/Sex: 75 / M Adm Date: 2 Loc: 4N Room: [address] [place] [address] Type : REG SDC Attending Dr: Soham Cash Jr DO Copies to: ~ Date of Service: 05/25/2021 Subjective Principal diagnosis: Paroxysmal atrial fibrillation Interval history: Patient without cardiac complaint. Was mildly hypotensive earlier heart rate appears better controlled Exam Physical Exam Vital Signs: Temp Pulse Resp BP Pulse Ox 99.0 F 85 14 110/72 94 L 05/25/21 07:33 05/25/21 07:33 05/25/21 07:33 05/25/21 07:33 05/25/21 07:33 Const General: cooperative Neck Neck: supple Lymphatic: no lymphadenopathy noted Resp Effort & Inspection: normal respiratory effort Auscultation: clear to auscultation bilaterally Cardio Palpation: normal PMI Rhythm: abnormal rhythm irregularly irregular Heart Sounds: S1 normal and S2 normal Skin General: dry skin Extrem General: full ROM and no clubbing, cyanosis or edema Objective Labs CBC & Chem 7: 05/24/21 04:44 05/24/21 05:58 Labs: Laboratory Results - last 24 hr 05/24/21 12:38 Urine Color Yellow Urine Appearance Clear Urine pH 6.5 Ur Specific [place] 1.007 Urine Protein Trace H Urine Glucose (UA) Normal Urine Ketones Negative Urine Occult Blood 1+ H Urine Nitrite Negative Urine Bilirubin Negative Urine Urobilinogen Normal Ur Leukocyte Esterase 1+ H Urine RBC 3-4 Urine WBC 0-1 Ur Squamous Epith Cells None seen Urine Bacteria None seen Hyaline Casts None seen A&P - Cardiology (1) Atrial fibrillation, persistent: Assessment/Problem Details: Patient remained in A. fib. Started on sotalol but blood pressure appears to beborderline low Code(s): I48.19 - Other persistent atrial fibrillation Status: Acute (2) Coronary artery disease: Code(s): I25.10 - Atherosclerotic heart disease of [place] coronary artery without angina pectoris Status: Acute (3) Hyperlipidemia: Code(s): E78.5 - Hyperlipidemia, unspecified Status: Acute Plan 1. We will decrease sotalol to 60 mg twice daily and hold if systolic blood pressure less than 100. Add low-dose digoxin for heart rate control. In 24 to 48 hours we will increase Eliquis to 5 mg twice daily if no surgical bleeding isnoted Documented By: Pino Dunbar MD 05/25/21 0940 Signed By: <Electronically signed by MD Pino Dunbar> 05/25/21 1200 [facility] Work Phone: [phone] Progress note Author Antonieta Combs [facility] May 24, 2021 2:43pm Note Date/Time May 24, 2021 2:4 0pm [facility] [address] [place] [address] Hospitalist Progress Note Signed Patient: Angella Pradhan MR#: [id number] : 1945 Acct:[id number] Age/Sex: 75 / M Adm Date: 2 Loc: 4N Room: [address] [place] [address] Type : REG PAC Attending Dr: Soham Cash Jr DO Copies to: ~ Date of Service: 05/24/2021 Subjective Subjective Narrative: Patient is 75-year-old male was possibly gout history of CAD s/p stent in July 2020,Patient is s/p right hip arthroplasty, hospitalist team has been consulted for medical management.As per report patient was found to be in and out of A. fib postop, was patient was evaluated by Dr. Burt.who recommended to keep patient on telemetry, patient was sinus on my encounter. Patient was seen and examined on the floor, patient was resting comfortably, patient denies any chestpain shortness of breath dizziness lightheadedness, patient denies any history of hypertension, any history of diabetes, Patient not complaining of pain, lab work is been ordered for tomorrow morning, Interval HISTORY : Patient seen and examined, patient was resting in the bed, eating lunch, denies any chest pain shortness of breath, patient states pain is controlled, blood pressure was borderline lower side, was in 80s on my encounter, patient denies any dizziness lightheadedness, patient also having some low-grade fever with T-max 100.1, leukocytosis with WBC of 11, patient denies any fever chills cough, chest x-ray was done which was nonacute, UA negative for any infection, patient started on sotalol and Eliquis yesterday Exam Physical Exam Vital Signs: Temp Pulse Resp BP Pulse Ox 99.6 F H 80 12 93/76 L 94 L 05/24/21 12:36 05/24/21 12:36 05/24/21 12:36 05/24/21 12:37 05/24/21 12:36 Narrative: Constitutional : Cooperative, alert and awake HEENT : Normocephalic, atraumatic, oral mucosa moist Eyes: PEERLA, EOM intact bilaterally Respiratory : Clear to auscultation bilaterally, no wheezes rhonchi or crackles Cardio : Rate regular, rhythm regular, no murmurs or gallops , S1-S2 normal GI : Soft, nontender, no hepatosplenomegaly appreciated Neuro: Alert, awake, oriented x3, no focal motor deficits appreciated, cranial nerves grossly intact, deep tendon reflexes symmetrical bilaterally Extremities: No pedal edema, clubbing or cyanosis present Objective Lab Results CBC & Chem 7: 05/24/21 04:44 05/24/21 05:58 ABG Interpretation ABG results: 05/23/21 05/24/21 04:46 04:44 Corrected WBC 8.1 11.0 H Meds Allergies and Active Meds Allergies No Known Allergies Allergy (Verified 05/05/21 16:03) Active Meds: Active Medications Generic Name Dose Route Start Last Admin Trade Name Freq PRN Reason Stop Dose Admin Acetaminophen 500 mg 05/22/21 15:00 05/24/21 08:37 Acetaminophen 500 Mg Tablet PO 05/25/21 09:01 500 mg Q6H EARLENE Administration Acetaminophen 1,000 mg 05/25/21 17:00 Acetaminophen 500 Mg Tablet PO 05/25/22 16:59 Q8H EARLENE Apixaban 2.5 mg 05/23/21 21:00 05/24/21 08:39 Apixaban 2.5 Mg Tablet PO 05/23/22 20:59 2.5 mg BID EARLENE Administration Ascorbic Acid 500 mg 05/22/21 17:00 05/24/21 08:39 Ascorbic Acid 500 Mg Tablet PO 05/22/22 16:59 500 mg BID.WITH.MEALS EARLENE Administration Aspirin 81 mg 05/22/21 21:00 05/24/21 08:38 Aspirin 81 Mg Tablet.Dr PO 05/22/22 20:59 81 mg BID EARLENE Administration Bisacodyl 10 mg 05/24/21 15:54 Bisacodyl 5 Mg Tablet.Dr PO ONCE PRN Constipation Calcium Carbonate 1 tab 05/22/21 21:00 05/24/21 08:38 Calcium Carbonate/Vitamin D3 500 Mg/200 Unit Tablet PO 05/22/22 20:59 1 tab BID EARLENE Administration Diphenhydramine HCl 25 mg 05/22/21 15:54 05/23/21 23:25 Diphenhydramine 25 Mg Capsule PO 05/22/22 15:53 25 mg HS PRN Administration Insomnia Docusate Sodium 100 mg 05/22/21 21:00 05/24/21 08:39 Docusate 100 Mg Capsule PO 05/22/22 20:59 100 mg BID EARLENE Administration Ferrous Sulfate 324 mg 05/22/21 17:00 05/24/21 08:40 Ferrous Sulfate 324 Mg Tablet.Dr PO 05/22/22 16:59 324 mg BID.WITH.MEALS EARLENE Administration Finasteride 5 mg 05/22/21 09:00 05/24/21 08:39 Finasteride 5 Mg Tablet PO 05/22/22 08:59 5 mg DAILY EARLENE Administration Gabapentin 300 mg 05/22/21 09:00 05/24/21 08:39 Gabapentin 300 Mg Capsule PO 05/22/22 08:59 300 mg BID EARLENE Administration Guaifenesin/Dextromethorphan 10 ml 05/22/21 09:00 Guaif/Dextromethorphan Syrup 10 Ml Udc PO 05/22/22 08:59 QID PRN Cough Hydromorphone HCl 0.5 mg 05/22/21 15:54 05/23/21 05:06 Hydromorphone 0.5 Mg/0.5 Ml Syringe IV-PUSH 0.5 mg Q2H PRN Administration Pain Scale 1 - 3 Hydromorphone HCl 1 mg 05/22/21 15:54 Hydromorphone 1 Mg/Ml Syringe IV-PUSH Q2H PRN Pain Scale 4 - 6 Hydromorphone HCl 1.5 mg 05/22/21 15:54 Hydromorphone 1 Mg/Ml Syringe IV-PUSH Q2H PRN Pain Scale 7 - 10 Hyoscyamine 0.125 mg 05/22/21 04:21 Hyoscyamine Sulfate 0.125 Mg Tab.Rapdis PO 05/22/22 04:20 QID PRN Spasms Lactated Ringer's 1,000 mls @ 75 mls/hr 05/22/21 16:00 05/23/21 18:15 Lactated Ringers IV 05/22/22 15:59 Not Given .[id number] EARLENE Lact Acid/Bifidobact/Lact Paracas/Streptoc Th 1 cap 05/22/21 09:00 05/24/21 08:38 L. Acidophilus/Strept/La P-Carlos 1 Cap Capsule PO 05/22/22 08:59 1 cap DAILY EARLENE Administration Levetiracetam 500 mg 05/22/21 09:00 05/24/21 08:37 Levetiracetam 500 Mg Tablet PO 05/22/22 08:59 500 mg BID EARLENE Administration Magnesium Hydroxide 30 ml 05/22/21 15:54 Magnesium Hydroxide Susp 30 Ml Udc PO 05/22/22 15:53 BID PRN Constipation Mineral Oil 1 each 05/25/21 15:54 Mineral Oil ([place]) 1 Each Enema [place] ONCE PRN Constipation Mirtazapine 30 mg 05/22/21 22:00 05/23/21 21:32 Mirtazapine 30 Mg Tablet PO 05/22/22 21:59 30 mg QHS EARLENE Administration Naloxone HCl 0.4 mg 05/22/21 15:54 Naloxone Hcl 0.4 Mg/Ml Vial IV-PUSH 05/22/22 15:53 Q2M PRN Opioid Reversal Nystatin 1 applic 05/22/21 09:00 05/24/21 08:40 Nystatin 100,000 Unit/Gram Powder 15 Gm Bottle TOPICAL 05/22/22 08:59 1 applic DAILY EARLENE Administration Omeprazole 40 mg 05/22/21 09:00 05/24/21 08:38 Omeprazole 20 Mg Capsule.Dr PO 05/22/22 08:59 40 mg DAILY EARLENE Administration Ondansetron HCl 4 mg 05/22/21 15:54 Ondansetron 4 Mg/2 Ml Vial IV-PUSH 05/22/22 15:53 Q6H PRN Nausea Oxybutynin Chloride 5 mg 05/22/21 09:00 05/24/21 08:38 Oxybutynin Chloride 5 Mg Tablet PO 05/22/22 08:59 5 mg DAILY EARLENE Administration Oxycodone HCl 5 mg 05/22/21 15:54 05/23/21 22:47 Oxycodone Ir 5 Mg Tablet PO 5 mg Q4HR PRN Administration Pain Scale 6 - 10 Sodium Chloride 0 ml 05/22/21 08:47 Sodium Chloride 0.9 % 10 Ml Syringe IV-PUSH 05/22/22 08:46 PRN PRN Flush Sodium Chloride 0 ml 05/22/21 09:31 Sodium Chloride 0.9 % 10 Ml Syringe IV-PUSH 05/22/22 09:30 PRN PRN Flush Sodium Chloride 0 ml 05/22/21 22:00 05/24/21 08:37 Sodium Chloride 0.9 % 10 Ml Syringe IV-PUSH 05/22/22 21:59 Not Given QSHIFT EARLENE Sodium Chloride 0 ml 05/22/21 15:54 Sodium Chloride 0.9 % 10 Ml Syringe IV-PUSH 05/22/22 15:53 PRN PRN Flush Sotalol HCl 80 mg 05/24/21 21:00 Sotalol 80 Mg Tablet PO 05/24/22 20:59 BID EARLENE Tamsulosin HCl 0.4 mg 05/22/21 09:00 05/24/21 08:39 Tamsulosin 0.4 Mg Cap.Er.24h PO 05/22/22 08:59 0.4 mg DAILY EARLENE Administration Vitamin D 50 mcg 05/22/21 09:00 05/24/21 08:38 Cholecalciferol 25 Mcg (1,000 Units) Tablet PO 05/22/22 08:59 50 mcg DAILY EARLENE Administration A&P - Hospitalist Assessment/Plan (1) Left hip pain: (2) Obesity: (3) Hyperlipidemia: Plan Patient is 75-year-old male with past medical history of CAD s/p stents in July 2020, has been admitted under orthopedic service, patient is s/p right total hiparthroplasty, hospitalist team has been consulted for medical management, patient blood pressure is currently on the borderline lower side, patient deniesany dizziness lightheadedness,, will give 500 mL bolus, continue to monitor blood pressure patient does have a new onset A. fib, likely precipitated postop,echocardiogram has been ordered,,TSH has been normal cardiology has been consulted, patient currently on aspirin 81 twice daily, patient started on Eliquis and sotalol by cardiology, patient had cardiac stent in July 2020, Patient having low-grade fever with mild leukocytosis, UA negative, chest x-ray did not show any acute findings, continue to monitor for fevers, Documented By: Antonieta Combs MD 05/24/21 1438 Signed By: <Electronically signed by Antonieta Combs MD> 05/24/21 1443 [facility] Work Phone: [phone] Progress note Author Soham Cash [facility] May 24, 2021 1:36pm Note Date/Time May 24, 2021 1:3 6pm [facility] [address] [place] [address] Orthopedic Progress Note Signed Patient: Angella Pradhan MR#: [id number] : 1945 Acct:[id number] Age/Sex: 75 / M Adm Date: 2 Loc: Room: [address] [place] [address] Type : [place] [facility] [place]: Soham Cash Jr DO Copies to: ~ Date of Service: 05/24/2021 Subjective Subjective Interval History: Patient denies chest pain shortness or abdominal pain. Patient admits to spontaneous urination and flatus. Patient states pain is somewhat controlled with pain medicine. Exam Physical Exam Vital Signs: Temp Pulse Resp BP Pulse Ox 99.6 F H 80 12 93/76 L 94 L 05/24/21 12:36 05/24/21 12:36 05/24/21 12:36 05/24/21 12:37 05/24/21 12:36 Const General: cooperative, comfortable and no acute distress Resp Other: Lungs were clear to auscultation with normal diaphragmatic excursion. No wheezes or rales or rhonchi were noted. Patient denies SOB or cough Cardio Other: Cardiac exam revealed the PMI to be normally situated and sized. The rhythm was regular and no extrasystoles were noted during auscultation. The first and second heart sounds were normal and physiologic. There were no murmurs, rubs, clicks, or gallops. Patient denies chest pain or orthopnea GI Other: Abdominal exam revealed normal bowel sounds. The abdomen was soft, non-tender, and without masses, organomegaly, or appreciable enlargement of the abdominal aorta. Patient denied abdominal pain or dyspepsia and admitted to positive spontaneous flatus. Musc Other: The operative leftlower extremity was neurovascularly intact without any sensorimotor deficits noted distal to the operative hip. Patient was able to motor feet toes ankle and knee and all anatomic planes with 5 out of 5 strength to the operative lower extremity. Dorsalis pedis and posterior tibial pulses were present and equal bilaterally. Sensation to light touch was intact all dermatomes to lower extremities bilaterally. Negative Homans and negative Moseswere noted bilaterally to lower extremities. There was no evidence of infectionthe lower extremities bilaterally. Compartments were soft to lower extremities bilaterally. Skin Nails: splinter hemorrhages Other: Incision healing without evidence of infection. No evidence of ascending lymphangitis Neuro Other: Cranial nerves II through XII grossly intact Objective Labs Labs: Laboratory Results - last 24 hr 05/23/21 05/24/21 05/24/21 04:46 04:44 04:44 Corrected WBC 11.0 H Uncorrected WBC Count 11.0 RBC 4.45 Hgb 12.6 L Hct 38.4 L MCV 86.3 MCH 28.4 MCHC 32.9 RDW 15.0 H Plt Count 227 MPV 7.8 Neut % (Auto) 68.0 Lymph % (Auto) 14.1 Sumner % (Auto) 14.9 Eos % (Auto) 2.6 Baso % (Auto) 0.4 Neut # (Auto) 7.5 Lymph # (Auto) 1.6 Sumner # (Auto) 1.6 H Eos # (Auto) 0.3 Baso # (Auto) 0.0 Nucleated RBC % (auto) 0.0 PHA Creatinine Clear 118.55 Sodium 136 Potassium Chloride 102 Carbon Dioxide 26.4 BUN 9 Creatinine 0.86 Est GFR ( Amer) > 60 Est GFR (Non-Af Amer) > 60 Glucose 99 Calcium 8.4 TSH 3rd Generation 0.86 Urine Color Urine Appearance Urine pH Ur Specific Vinson Urine Protein Urine Glucose (UA) Urine Ketones Urine Occult Blood Urine Nitrite Urine Bilirubin Urine Urobilinogen Ur Leukocyte Esterase Urine RBC Urine WBC Ur Squamous Epith Cells Urine Bacteria Hyaline Casts 05/24/21 05/24/21 05:58 12:38 Corrected WBC Uncorrected WBC Count RBC Hgb Hct MCV MCH MCHC RDW Plt Count MPV Neut % (Auto) Lymph % (Auto) Sumner % (Auto) Eos % (Auto) Baso % (Auto) Neut # (Auto) Lymph # (Auto) Sumner # (Auto) Eos # (Auto) Baso # (Auto) Nucleated RBC % (auto) PHA Creatinine Clear Sodium Potassium 4.3 Chloride Carbon Dioxide BUN Creatinine Est GFR ( Amer) Est GFR (Non-Af Amer) Glucose Calcium TSH 3rd Generation Urine Color Yellow Urine Appearance Clear Urine pH 6.5 Ur Specific Vinson 1.007 Urine Protein Trace H Urine Glucose (UA) Normal Urine Ketones Negative Urine Occult Blood 1+ H Urine Nitrite Negative Urine Bilirubin Negative Urine Urobilinogen Normal Ur Leukocyte Esterase 1+ H Urine RBC 3-4 Urine WBC 0-1 Ur Squamous Epith Cells None seen Urine Bacteria None seen Hyaline Casts None seen Assessment / Plan Assessment and plan (1) Coronary artery disease: Code(s): I25.10 - Atherosclerotic heart disease of sen[place] coronary artery without angina pectoris Status: Acute (2) Paroxysmal A-fib: Code(s): I48.0 - Paroxysmal atrial fibrillation Status: Acute (3) Left hip pain: Plan: 1. Agree with cardiology appreciate consultation. 2. Orthopedically stable await medical stability for probable discharge to [facility]. 3. Patient lives by himself and has no family members that can take care of him. Patient will be an extreme risk to go home for fall or catastrophic event if he were to go home by himself. Code(s): M25.552 - Pain in left hip Status: Acute Documented By: Soham Cash Jr, DO 05/24/211332 Signed By: <Electronically signed by Soham Cash Jr, DO> 05/24/21 [facility] Work Phone: 1([phone] 380-396704-17-2022 Progress note Author Parminder Arredondo [facility] May 24, 2021 10:31am Note Date/Time May 24, 2021 10: 31am [facility] [address] [place] [address] Cardiology Progress Note Signed Patient: Angella Pradhan MR#: [id number] : 1945 Acct:[id number] Age/Sex: 75 / M Adm Date: 2 Loc: Room: 6G7615-2 Type : REG SDC Attending Dr: Soham Cash Jr DO Copies to: ~ Date of Service: 05/24/2021 Subjective Principal diagnosis: Paroxysmal atrial fibrillation Interval history: Patient has no cardiac complaints. Yesterday's blood pressure was a bit low because of this I did not implement rate control and/or antiarrhythmic therapy. He is hemodynamically improved and blood pressure is higher today and because ofthis and his persistent episodes of atrial fibrillation we will implement antiarrhythmic therapy. Sotalol will be given now and thereafter every 12 hours. Continue aspirin and Effient as ordered. Exam Physical Exam Vital Signs: Temp Pulse Resp BP Pulse Ox 100.1 F H 113 H 16 122/81 97 05/24/21 08:00 05/24/21 08:00 05/24/21 03:45 05/24/21 08:00 05/24/21 08:00 HEENT Head: normal to inspection Ears: hearing grossly normal bilaterally Nose: external nose normal and nares normal Face and sinus: normal facial exam Mouth: oral mucosae normal and tongue normal Eyes Conjunctivae: conjunctivae normal Sclera: sclerae normal Neck Neck: normal visual inspection Carotids: normal carotid upstroke Lymphatic: no lymphadenopathy noted Chest Chest palpation & inspection: normal inspection of the chest Resp Effort & Inspection: normal respiratory effort Auscultation: clear to auscultation bilaterally Cardio Rate: tachycardic Rhythm: abnormal rhythm GI Inspection: normal to inspection Palpation: soft Skin General: no rashes or lesions noted Neuro General: patient alert, patient awake and patient oriented x3 Cognition: normal cognition Motor: muscle tone normal throughout Sensory Exam: no sensory deficits noted Objective Labs CBC & Chem 7: 05/24/21 04:44 05/24/21 05:58 Labs: Laboratory Results - last 24 hr 05/23/21 05/24/21 05/24/21 04:46 04:44 04:44 Corrected WBC 11.0 H Uncorrected WBC Count 11.0 RBC 4.45 Hgb 12.6 L Hct 38.4 L MCV 86.3 MCH 28.4 MCHC 32.9 RDW 15.0 H Plt Count 227 MPV 7.8 Neut % (Auto) 68.0 Lymph % (Auto) 14.1 Sumner % (Auto) 14.9 Eos % (Auto) 2.6 Baso % (Auto) 0.4 Neut # (Auto) 7.5 Lymph # (Auto) 1.6 Sumner # (Auto) 1.6 H Eos # (Auto) 0.3 Baso # (Auto) 0.0 Nucleated RBC % (auto) 0.0 PHA Creatinine Clear 118.55 Sodium 136 Potassium Chloride 102 Carbon Dioxide 26.4 BUN 9 Creatinine 0.86 Est GFR ( Amer) > 60 Est GFR (Non-Af Amer) > 60 Glucose 99 Calcium 8.4 TSH 3rd Generation 0.86 05/24/21 05:58 Corrected WBC Uncorrected WBC Count RBC Hgb Hct MCV MCH MCHC RDW Plt Count MPV Neut % (Auto) Lymph % (Auto) Sumner % (Auto) Eos % (Auto) Baso % (Auto) Neut # (Auto) Lymph # (Auto) Sumner # (Auto) Eos # (Auto) Baso # (Auto) Nucleated RBC % (auto) PHA Creatinine Clear Sodium Potassium 4.3 Chloride Carbon Dioxide BUN Creatinine Est GFR ( Amer) Est GFR (Non-Af Amer) Glucose Calcium TSH 3rd Generation A&P - Cardiology (1) Coronary artery disease: Assessment/Problem Details: Coronary disease is stable. He had intervention 10 months ago. Antiplatelet therapy was partially interrupted. He continues on aspirin now in combination with Eliquis. Code(s): I25.10 - Atherosclerotic heart disease of [place] coronary artery without angina pectoris Status: Acute (2) Paroxysmal A-fib: Assessment/Problem Details: Eliquis initiated yesterday. Appears to be tolerated without bleeding complication. Because of the persistent nature of the arrhythmia we will initiate sotalol therapy in an effort to control rate but also restore and maintain sinus rhythm. Code(s): I48.0 - Paroxysmal atrial fibrillation Status: Acute Plan Continue aspirin and Effient as ordered. Add sotalol in an effort to control rate but also restore and maintain sinus rhythm. Documented By: Parminder Arredondo MD [id number] Signed By: <Electronically signed by MD Parminder Arredondo> 05/24/21 1031 [facility] Work Phone: [phone] Consult note Author Parminder Arredondo [facility] May 23, 2021 2:22pm Note Date/Time May 23, 2021 2:2 2pm [facility] [address] [place] [address] Cardiology Consult Note Signed Patient: Angella Pradhan MR#: [id number] : 1945 Acct:[id number] Age/Sex: 75 / M Adm Date: 2 Loc: 4N Room: [address] [place] [address] Type : REG PAC Attending Dr: Soham Cash Jr DO Copies to: MD Soham Gonsalves Jr, DO Parminder Arredondo MD~ Cardiology HPI History of Present Illness Consult Date: 05/23/21 Reason for Consult: Paroxysmal atrial fibrillation HPI: Mr. Pradhan is a 75 year old male seen for the above. He is an individual who underwent an elective joint replacement surgery yesterday. In recovery he was noted to have paroxysms of atrial fibrillation which converted spontaneously to sinus rhythm. He denies a known history of atrial fibrillation in the past. He does have a history of coronary disease with intervention last year and otherwise no other significant heart disease. He has no cardiomyopathy and recently no anginal symptoms or manifestations of heart failure or arrhythmia The patient underwent joint replacement surgery yesterday. I spoke to Dr. Cash in this regard. He is in agreement that antithrombotic therapy to mitigate stroke risk associate with atrial fibrillation should be considered because of this we will implement Eliquis therapy, initially at a half dose, andalso continue his aspirin. I believe that the patient has had the benefit of 10months of dual antiplatelet therapy with Brilinta and will not require resumption of that particular agent. Review of Systems Review of Systems All other systems reviewed & are negative unless noted below or in HPI Constitutional Constitutional: Reports system reviewed and no additional complaints, except as documented Eyes Eyes: Reports system reviewed and no additional complaints, except as documented ENT Ears, Nose, Mouth, and Throat: Reports system reviewed and no additional complaints, except as documented Cardiovascular Cardiovascular: Reports as per HPI Respiratory Respiratory: Reports system reviewed and no additional complaints, except as documented Gastrointestinal Gastrointestinal: Reports system reviewed and no additional complaints, except as documented Genitourinary Genitourinary: Reports system reviewed and no additional complaints, except as documented Musculoskeletal Musculoskeletal: Reports system reviewed and no additional complaints, except asdocumented Integumentary/Breasts Skin/Breast: Reports system reviewed and no additional complaints, except as documented Neurologic Neurologic: Reports system reviewed and no additional complaints, except as documented Psychiatric Psychiatric: Reports system reviewed and no additional complaints, except as documented Endocrine Endocrine: Reports system reviewed and no additional complaints, except as documented Hematologic/Lymphatic Hematologic/Lymphatic: Reports system reviewed and no additional complaints, except as documented Allergic/Immunologic Allergic/Immunologic: Reports system reviewed and no additional complaints, except as documented PMFSH Vaccinated for COVID-19?: Yes Medical History (Updated 05/23/21 @ 14:21 by Parminder Arredondo MD) Arthritis BPH (benign prostatic hyperplasia) Coronary artery disease Hyperlipidemia Left hip pain Myocardial infarct Seizure single episode 12/25/21 Surgical History Hx of carpal tunnel repair right Hx of hernia repair Stented coronary artery 4 stents Family History Father H/O heart artery stent Mother Medical history unknown Social History Smoking Status: Former smoker Tobacco Type: cigarettes and pipe Substance Use Type: None Meds Medications and Allergies Allergies No Known Allergies Allergy (Verified 05/05/21 16:03) Home Medications L.acidop,casei,lactis,rham-B.lact,jas 625 mg (10 billion cell) capsule (AdvancedProbiotic) 1 cap PO DAILY 05/05/21 [History Confirmed 05/22/21] cholecalciferol (vitamin D3) 50 mcg (2,000 unit) tablet (Vitamin D3) 50 mcg PO DAILY 05/05/21 [History Confirmed 05/22/21] dextromethorphan-guaifenesin 10 mg-100 mg/5 mL oral syrup 10 ml PO QID PRN 05/05/21 [History Confirmed 05/22/21] finasteride 5 mg tablet 5 mg PO DAILY 05/05/21 [History Confirmed 05/22/21] gabapentin 300 mg capsule 300 mg PO BID 05/05/21 [History Confirmed 05/22/21] hyoscyamine sulfate 0.125 mg tablet (Levsin) 0.125 mg PO QID PRN 05/05/21 [History Confirmed 05/22/21] levetiracetam 500 mg tablet (Keppra) 500 mg PO BID 05/05/21 [History Confirmed 05/22/21] mirtazapine 30 mg tablet (Remeron) 30 mg PO QHS 05/05/21 [History Confirmed 05/22/21] nystatin 100,000 unit/gram topical powder 1 applic TOPICAL DAILY 05/05/21 [History Confirmed 05/22/21] omeprazole 40 mg capsule,delayed release 40 mg PO DAILY 05/05/21 [History Confirmed 05/22/21] oxybutynin chloride 5 mg tablet 5 mg PO DAILY 05/05/21 [History Confirmed 05/22/21] tamsulosin 0.4 mg capsule 0.4 mg PO DAILY 05/05/21 [History Confirmed 05/22/21] aspirin 81 mg chewable tablet (Children's Aspirin) 81 mg PO BID #0 tab 05/22/21 [Rx Confirmed 05/22/21] oxycodone-acetaminophen 5 mg-325 mg tablet (Percocet) 1 tab PO Q6H PRN 7 Days #28 tab 05/22/21 [Rx] oxycodone-acetaminophen 5 mg-325 mg tablet (Percocet) 1 tab PO Q6H PRN 7 Days #28 tab 05/22/21 [Rx] ticagrelor 90 mg tablet 90 mg PO BID 05/22/21 [History Confirmed 05/22/21] Exam Physical Exam Vital Signs: Temp Pulse Resp BP Pulse Ox 97.5 F L 80 18 90/53 L 91 L 05/23/21 11:27 05/23/21 11:27 05/23/21 11:27 05/23/21 11:27 05/23/21 11:27 HEENT Head: normal to inspection Ears: hearing grossly normal bilaterally Nose: external nose normal and nares normal Face and sinus: normal facial exam Mouth: oral mucosae normal and tongue normal Eyes Conjunctivae: conjunctivae normal Sclera: sclerae normal Neck Neck: normal visual inspection Carotids: normal carotid upstroke Lymphatic: no lymphadenopathy noted Chest Chest palpation & inspection: normal inspection of the chest Resp Effort & Inspection: normal respiratory effort Auscultation: clear to auscultation bilaterally Cardio Rate: regular rate Rhythm: regular rhythm Heart Sounds: S1 normal and S2 normal GI Inspection: normal to inspection Palpation: soft Skin General: no rashes or lesions noted Neuro General: patient alert, patient awake and patient oriented x3 Cognition: normal cognition Motor: muscle tone normal throughout Sensory Exam: no sensory deficits noted Results Labs CBC & CMP: 05/23/21 04:46 05/23/21 04:46 Lab results: CBC 05/23/21 Range/Units 04:46 RBC 4.56 (3.90-5.60) x10E6/uL Hgb 12.9 L (13.0-17.0) g/dL Hct 39.1 (38.8-50.0) % Plt Count 199 (150-450) x10E3/uL Neut # (Auto) 5.4 (1.8-7.7) x10E3/uL Lymph # (Auto) 1.1 (1.00-4.8) x10E3/uL Sumner # (Auto) 1.3 H (0.0-0.8) x10E3/uL Eos # (Auto) 0.1 (0.0-0.45) x10E3/uL Baso # (Auto) 0.0 (0.0-0.2) x10E3/uL Comprehensive Metabolic Panel 05/23/21 Range/Units 04:46 Sodium 136 (136-146) mmol/L Potassium 4.2 (3.5-5.1) mmol/L Chloride 102 (95-114) mmol/L Carbon Dioxide 23.2 (22.0-30.0) mmol/L BUN 7 L (9-23) mg/dL Creatinine 0.77 (0.64-1.27) mg/dL Glucose 104 H (70-100) mg/dL Calcium 8.3 (8.2-10.2) mg/dL Intake and Output 05/22/21 05/23/21 05/23/21 23:59 07:59 15:59 Intake Total 2600 / 2850 1150 / 1150 Output Total 1000 / 1000 Balance 1600 / 1850 1150 / 1150 Intake: IV 2350 / 2600 1000 / 1000 Lactated Ringers 1,000 ml @ 75 2300 / 2300 1000 / 1000 mls/hr IV .[id number] EARLENE Rx#: [id number] ceFAZolin 1GM-*NS* 1 gm In 50 50 / 50 ml @ 100 mls/hr IV Q8H EARLENE Rx#: [id number] Oral 250 / 250 150 / 150 Output: Urine Amount (Catheter) 1000 / 1000 Urethral (Ghotra) 1000 / 1000 Other: # Bowel Movements 0 0 Weight 195.6 kg Date of Last Bowel Movement 05/20/21 05/21/21 Patient Weight 05/23/21 23:59 Weight 195.6 kg A&P - Cardiology (1) Paroxysmal A-fib: Assessment/Problem Details: This is a new development for the patient. For the time being we will implementantithrombotic therapy to mitigate stroke risk as well as addressing the potential for deep vein thrombosis following surgery. In the future will be determined, probably by Dr. Dunbar his primary cdl bulk driver, whether antiarrhythmic therapy will be necessary. Code(s): I48.0 - Paroxysmal atrial fibrillation (2) Coronary artery disease: Assessment/Problem Details: Stable with no chest pain. He had coronary intervention July 28, 2020. Code(s): I25.10 - Atherosclerotic heart disease of [place] coronary artery without angina pectoris Plan Continue aspirin. Add Eliquis 2.5 mg twice daily. Intensify to 5 mg twice daily in the future. Documented By: Parminder Arredondo MD [id number] Signed By: <Electronically signed by MD Parminder Arredondo> 05/23/21 142 [facility] Work Phone: 1(295) 106-292404-16-2022 Progress note Author Soham Cash [facility] May 23, 2021 1:46pm Note Date/Time May 23, 2021 1:0 3pm [facility] [address] [place] [address] Orthopedic Progress Note Signed Patient: Angella Pradhan MR#: [id number] : 1945 Acct:[id number] Age/Sex: 75 / M Adm Date: 2 Loc: Room: 7T3543-9 Type : REG SDC Attending Dr: Soham Cash Jr DO Copies to: ~ Date of Service: 05/23/2021 Subjective Subjective Interval History: Patient denies chest pain shortness of breath abdominal pain. States his pain is well controlled. Admits spontaneous urinations and flatus. Exam Physical Exam Vital Signs: Temp Pulse Resp BP Pulse Ox 97.5 F L 80 18 90/53 L 91 L 05/23/21 11:27 05/23/21 11:27 05/23/21 11:27 05/23/21 11:27 05/23/21 11:27 Const General: cooperative, comfortable and no acute distress Resp Other: Lungs were clear to auscultation with normal diaphragmatic excursion. No wheezes or rales or rhonchi were noted. Patient denies SOB or cough Cardio Other: Cardiac exam revealed the PMI to be normally situated and sized. The rhythm was regular and no extrasystoles were noted during auscultation. The first and second heart sounds were normal and physiologic. There were no murmurs, rubs, clicks, or gallops. Patient denies chest pain or orthopnea GI Other: Abdominal exam revealed normal bowel sounds. The abdomen was soft, non-tender, and without masses, organomegaly, or appreciable enlargement of the abdominal aorta. Patient denied abdominal pain or dyspepsia and admitted to positive spontaneous flatus. Skin Nails: splinter hemorrhages Other: Incision healing without evidence of infection. No evidence of ascending lymphangitis Neuro Other: Cranial nerves II through XII grossly intact Extrem Other: the operative left lower extremity was neurovascularly intact without any sensorimotor deficits noted distal to the operative hip. Patient was able to motor feet toes ankle and knee and all anatomic planes with 5 out of 5 strength to the operative lower extremity. Dorsalis pedis and posterior tibial pulses were present and equal bilaterally. Sensation to light touch was intact all dermatomes to lower extremities bilaterally. Negative Homans and negative Moseswere noted bilaterally to lower extremities. There was no evidence of infectionthe lower extremities bilaterally. Compartments were soft to lower extremities bilaterally. Objective Labs Labs: Laboratory Results - last 24 hr 05/23/21 05/23/21 04:46 04:46 Corrected WBC 8.1 Uncorrected WBC Count 8.1 RBC 4.56 Hgb 12.9 L Hct 39.1 MCV 85.8 MCH 28.2 MCHC 32.8 RDW 14.4 Plt Count 199 MPV 8.0 Neut % (Auto) 67.1 Lymph % (Auto) 14.1 Sumner % (Auto) 16.6 Eos % (Auto) 1.8 Baso % (Auto) 0.4 Neut # (Auto) 5.4 Lymph # (Auto) 1.1 Sumner # (Auto) 1.3 H Eos # (Auto) 0.1 Baso # (Auto) 0.0 Nucleated RBC % (auto) 0.1 PHA Creatinine Clear 125.69 Sodium 136 Potassium 4.2 Chloride 102 Carbon Dioxide 23.2 BUN 7 L Creatinine 0.77 Est GFR ( Amer) > 60 Est GFR (Non-Af Amer) > 60 Glucose 104 H Calcium 8.3 Assessment / Plan Assessment and plan (1) Left hip pain: Plan: 1. Continue current care 2. Cardiology consult for episodes of atrial fib. Contacted cardiology (Dr. Arredondo) about Brilinta usage and stroke prevention secondary to A. fib occurrence. As per our conversation I will continue 81 mg aspirin twice a day and Dr. Arredondo will possibly place patient on Eliquis or Xarelto after consult 3. await discharge placement when medically stable. Code(s): M25.552 - Pain in left hip Status: Acute (2) Obesity: Code(s): E66.9 - Obesity, unspecified Status: Acute (3) Hyperlipidemia: Code(s): E78.5 - Hyperlipidemia, unspecified Status: Acute Documented By: Soham Cash Jr, DO 05/23/21 1301 Signed By: <Electronically signed by Soham Cash Jr, DO> 05/23/21 8836 [facility] Work Phone: [phone]) 454-942004-16-2022 Progress note Author Antonieta Combs [facility] May 23, 2021 1:17pm Note Date/Time May 23, 2021 1:1 5pm [facility] [address] [place] [address] Hospitalist Progress Note Signed Patient: Angella Pradhan MR#: [id number] : 1945 Acct:[id number] Age/Sex: 75 / M Adm Date: 2 Loc: Room: [address] [place] [address] Type : REG SDC Attending Dr: Soham Cash Jr DO Copies to: ~ Date of Service: 05/23/2021 Subjective Subjective Narrative: Patient is 75-year-old male was possibly gout history of CAD s/p stent in July 2020,Patient is s/p right hip arthroplasty, hospitalist team has been consulted for medical management.As per report patient was found to be in and out of A. fib postop, was patient was evaluated by Dr. Burt.who recommended to keep patient on telemetry, patient was sinus on my encounter. Patient was seen and examined on the floor, patient was resting comfortably, patient denies any chestpain shortness of breath dizziness lightheadedness, patient denies any history of hypertension, any history of diabetes, Patient not complaining of pain, lab work is been ordered for tomorrow morning, Interval HISTORY : Patient seen and examined, patient was drowsy but easily arousable, likely due to effect of medication, blood pressure on the borderline lower side, patient denies any dizziness lightheadedness, chest pain shortness of breath, patient was in sinus on my encounter, patient did have multiple episodes of A. fib last night, cardiology consult has been Exam Physical Exam Vital Signs: Temp Pulse Resp BP Pulse Ox 97.5 F L 80 18 90/53 L 91 L 05/23/21 11:27 05/23/21 11:27 05/23/21 11:27 05/23/21 11:27 05/23/21 11:27 Narrative: Constitutional : Cooperative, alert and awake HEENT : Normocephalic, atraumatic, oral mucosa moist Eyes: PEERLA, EOM intact bilaterally Respiratory : Clear to auscultation bilaterally, no wheezes rhonchi or crackles Cardio : Rate regular, rhythm regular, no murmurs or gallops , S1-S2 normal GI : Soft, nontender, no hepatosplenomegaly appreciated Neuro: Alert, awake, oriented x3, no focal motor deficits appreciated, cranial nerves grossly intact, deep tendon reflexes symmetrical bilaterally Extremities: No pedal edema, clubbing or cyanosis present Objective Lab Results CBC & Chem 7: 05/23/21 04:46 05/23/21 04:46 Meds Allergies and Active Meds Allergies No Known Allergies Allergy (Verified 05/05/21 16:03) Active Meds: Active Medications Generic Name Dose Route Start Last Admin Trade Name Freq PRN Reason Stop Dose Admin Acetaminophen 500 mg 05/22/21 15:00 05/23/21 09:27 Acetaminophen 500 Mg Tablet PO 05/25/21 09:01 500 mg Q6H EARLENE Administration Acetaminophen 1,000 mg 05/25/21 17:00 Acetaminophen 500 Mg Tablet PO 05/25/22 16:59 Q8H EARLENE Ascorbic Acid 500 mg 05/22/21 17:00 05/23/21 09:27 Ascorbic Acid 500 Mg Tablet PO 05/22/22 16:59 500 mg BID.WITH.MEALS EARLENE Administration Aspirin 81 mg 05/22/21 21:00 05/23/21 09:06 Aspirin 81 Mg Tablet. PO 05/22/22 20:59 81 mg BID EARLENE Administration Bisacodyl 10 mg 05/24/21 15:54 Bisacodyl 5 Mg Tablet.Dr PO ONCE PRN Constipation Calcium Carbonate 1 tab 05/22/21 21:00 05/23/21 09:30 Calcium Carbonate/Vitamin D3 500 Mg/200 Unit Tablet PO 05/22/22 20:59 1 tab BID EARLENE Administration Diphenhydramine HCl 25 mg 05/22/21 15:54 Diphenhydramine 25 Mg Capsule PO 05/22/22 15:53 HS PRN Insomnia Docusate Sodium 100 mg 05/22/21 21:00 05/23/21 09:27 Docusate 100 Mg Capsule PO 05/22/22 20:59 100 mg BID EARLENE Administration Ferrous Sulfate 324 mg 05/22/21 17:00 05/23/21 09:28 Ferrous Sulfate 324 Mg Tablet.Dr PO 05/22/22 16:59 324 mg BID.WITH.MEALS EARLENE Administration Finasteride 5 mg 05/22/21 09:00 05/23/21 09:05 Finasteride 5 Mg Tablet PO 05/22/22 08:59 5 mg DAILY EARLENE Administration Gabapentin 300 mg 05/22/21 09:00 05/23/21 09:27 Gabapentin 300 Mg Capsule PO 05/22/22 08:59 300 mg BID EARLENE Administration Guaifenesin/Dextromethorphan 10 ml 05/22/21 09:00 Guaif/Dextromethorphan Syrup 10 Ml Udc PO 05/22/22 08:59 QID PRN Cough Hydromorphone HCl 0.5 mg 05/22/21 15:54 05/23/21 05:06 Hydromorphone 0.5 Mg/0.5 Ml Syringe IV-PUSH 0.5 mg Q2H PRN Administration Pain Scale 1 - 3 Hydromorphone HCl 1 mg 05/22/21 15:54 Hydromorphone 1 Mg/Ml Syringe IV-PUSH Q2H PRN Pain Scale 4 - 6 Hydromorphone HCl 1.5 mg 05/22/21 15:54 Hydromorphone 1 Mg/Ml Syringe IV-PUSH Q2H PRN Pain Scale 7 - 10 Hyoscyamine 0.125 mg 05/22/21 04:21 Hyoscyamine Sulfate 0.125 Mg Tab.Rapdis PO 05/22/22 04:20 QID PRN Spasms Lactated Ringer's 1,000 mls @ 75 mls/hr 05/22/21 16:00 05/23/21 06:40 Lactated Ringers IV 05/22/22 15:59 Not Given .[id number] EARLENE Lact Acid/Bifidobact/Lact Paracas/Streptoc Th 1 cap 05/22/21 09:00 05/23/21 09:26 L. Acidophilus/Strept/La P-Carlos 1 Cap Capsule PO 05/22/22 08:59 1 cap DAILY EARLENE Administration Levetiracetam 500 mg 05/22/21 09:00 05/23/21 09:06 Levetiracetam 500 Mg Tablet PO 05/22/22 08:59 500 mg BID EARLENE Administration Magnesium Hydroxide 30 ml 05/22/21 15:54 Magnesium Hydroxide Susp 30 Ml Udc PO 05/22/22 15:53 BID PRN Constipation Mineral Oil 1 each 05/25/21 15:54 Mineral Oil ([place]) 1 Each Enema [place] ONCE PRN Constipation Mirtazapine 30 mg 05/22/21 22:00 05/22/21 21:12 Mirtazapine 30 Mg Tablet PO 05/22/22 21:59 Not Given QHS EARELNE Naloxone HCl 0.4 mg 05/22/21 15:54 Naloxone Hcl 0.4 Mg/Ml Vial IV-PUSH 05/22/22 15:53 Q2M PRN Opioid Reversal Nystatin 1 applic 05/22/21 09:00 05/23/21 10:50 Nystatin 100,000 Unit/Gram Powder 15 Gm Bottle TOPICAL 05/22/22 08:59 1 applic DAILY EARLENE Administration Omeprazole 40 mg 05/22/21 09:00 05/23/21 09:05 Omeprazole 20 Mg Capsule.Dr PO 05/22/22 08:59 40 mg DAILY EARLENE Administration Ondansetron HCl 4 mg 05/22/21 15:54 Ondansetron 4 Mg/2 Ml Vial IV-PUSH 05/22/22 15:53 Q6H PRN Nausea Oxybutynin Chloride 5 mg 05/22/21 09:00 05/23/21 09:27 Oxybutynin Chloride 5 Mg Tablet PO 05/22/22 08:59 5 mg DAILY EARLENE Administration Oxycodone HCl 5 mg 05/22/21 15:54 05/22/21 20:06 Oxycodone Ir 5 Mg Tablet PO 5 mg Q4HR PRN Administration Pain Scale 6 - 10 Sodium Chloride 0 ml 05/22/21 08:47 Sodium Chloride 0.9 % 10 Ml Syringe IV-PUSH 05/22/22 08:46 PRN PRN Flush Sodium Chloride 0 ml 05/22/21 09:31 Sodium Chloride 0.9 % 10 Ml Syringe IV-PUSH 05/22/22 09:30 PRN PRN Flush Sodium Chloride 0 ml 05/22/21 22:00 05/23/21 06:40 Sodium Chloride 0.9 % 10 Ml Syringe IV-PUSH 05/22/22 21:59 10 ml QSHIFT EARLENE Administration Sodium Chloride 0 ml 05/22/21 15:54 Sodium Chloride 0.9 % 10 Ml Syringe IV-PUSH 05/22/22 15:53 PRN PRN Flush Tamsulosin HCl 0.4 mg 05/22/21 09:00 05/23/21 09:06 Tamsulosin 0.4 Mg Cap.Er.24h PO 05/22/22 08:59 0.4 mg DAILY EARLENE Administration Vitamin D 50 mcg 05/22/21 09:00 05/23/21 09:06 Cholecalciferol 25 Mcg (1,000 Units) Tablet PO 05/22/22 08:59 50 mcg DAILY EARLENE Administration A&P - Hospitalist Assessment/Plan (1) Left hip pain: (2) Obesity: (3) Hyperlipidemia: Plan Patient is 75-year-old male with past medical history of CAD s/p stents in July 2020, has been admitted under orthopedic service, patient is s/p right total hiparthroplasty, hospitalist team has been consulted for medical management, patient blood pressure is currently on the borderline lower side, patient deniesany dizziness lightheadedness, patient does have a new onset A. fib, likely precipitated postop, will check echocardiogram TSH, cardiology has been consulted, patient currently on aspirin 81 twice daily, will defer to cardiologyfor anticoagulation management, patient was taking Brilinta for stent placement,patient had stent placement in July 2020, Labs reviewed We will follow Documented By: Antonieta Cobms MD 05/23/211312 Signed By: <Electronically signed by Antonieta Combs MD> 05/23/211316 [facility] Work Phone: [phone]) [phone] Consult note Author Antonieta Combs [facility] May 22, 2021 5:58pm Note Date/Time May 22, 2021 5:3 8pm [facility] [address] [place] [address] Hospitalist Consult Note Signed Patient: Angella Pradhan MR#: [id number] : 1945 Acct:[id number] Age/Sex: 75 / M Adm Date: 2 Loc: 4N Room: 6Q9437-8 Type : [place] [facility] [place]: Soham Cash Jr, DO Copies to: MD Soham Gonsalves Jr, DO Antonieta Combs MD~ HPI DATE OF CONSULTATION: 05/22/21 REQUESTING PROVIDER: Soham Cash Jr Consult Narrative Reason for Consult: Management of hypertension HPI: Patient is 75-year-old male was possibly gout history of CAD s/p stent in July 2020,Patient is s/p right hip arthroplasty, hospitalist team has been consulted for medical management.As per report patient was found to be in and out of A. fib postop, was patient was evaluated by Dr. Burt.who recommended to keep patient on telemetry, patient was sinus on my encounter. Patient was seen and examined on the floor, patient was resting comfortably, patient denies any chestpain shortness of breath dizziness lightheadedness, patient denies any history of hypertension, any history of diabetes, Patient not complaining of pain, lab work is been ordered for tomorrow morning, Review of Systems Review of Systems All other systems reviewed & are negative unless noted below or in HPI PMFSH Vaccinated for COVID-19?: Yes Medical History (Updated 05/22/21 @ 15:33 by Soham Cash Jr, DO) Arthritis BPH (benign prostatic hyperplasia) Coronary artery disease Hyperlipidemia Left hip pain Myocardial infarct Seizure single episode 01/31/21 Surgical History Hx of carpal tunnel repair right Hx of hernia repair Stented coronary artery 4 stents Family History Father H/O heart artery stent Mother Medical history unknown Social History Smoking Status: Former smoker Tobacco Type: cigarettes and pipe Substance Use Type: None Meds Medications and Allergies Allergies No Known Allergies Allergy (Verified 05/05/21 16:03) Home Medications L.acidop,casei,lactis,rham-B.lact,jas 625 mg (10 billion cell) capsule (AdvancedProbiotic) 1 cap PO DAILY 05/05/21 [History Confirmed 05/22/21] cholecalciferol (vitamin D3) 50 mcg (2,000 unit) tablet (Vitamin D3) 50 mcg PO DAILY 05/05/21 [History Confirmed 05/22/21] dextromethorphan-guaifenesin 10 mg-100 mg/5 mL oral syrup 10 ml PO QID PRN 05/05/21 [History Confirmed 05/22/21] finasteride 5 mg tablet 5 mg PO DAILY 05/05/21 [History Confirmed 05/22/21] gabapentin 300 mg capsule 300 mg PO BID 05/05/21 [History Confirmed 05/22/21] hyoscyamine sulfate 0.125 mg tablet (Levsin) 0.125 mg PO QID PRN 05/05/21 [History Confirmed 05/22/21] levetiracetam 500 mg tablet (Keppra) 500 mg PO BID 05/05/21 [History Confirmed 05/22/21] mirtazapine 30 mg tablet (Remeron) 30 mg PO QHS 05/05/21 [History Confirmed 05/22/21] nystatin 100,000 unit/gram topical powder 1 applic TOPICAL DAILY 05/05/21 [History Confirmed 05/22/21] omeprazole 40 mg capsule,delayed release 40 mg PO DAILY 05/05/21 [History Confirmed 05/22/21] oxybutynin chloride 5 mg tablet 5 mg PO DAILY 05/05/21 [History Confirmed 05/22/21] tamsulosin 0.4 mg capsule 0.4 mg PO DAILY 05/05/21 [History Confirmed 05/22/21] aspirin 81 mg chewable tablet (Children's Aspirin) 81 mg PO BID #0 tab 05/22/21 [Rx Confirmed 05/22/21] oxycodone-acetaminophen 5 mg-325 mg tablet (Percocet) 1 tab PO Q6H PRN 7 Days #28 tab 05/22/21 [Rx] oxycodone-acetaminophen 5 mg-325 mg tablet (Percocet) 1 tab PO Q6H PRN 7 Days #28 tab 05/22/21 [Rx] ticagrelor 90 mg tablet 90 mg PO BID 05/22/21 [History Confirmed 05/22/21] Active Medications: Active Medications Generic Name Dose Route Start Last Admin Trade Name Freq PRN Reason Stop Dose Admin Acetaminophen 500 mg 05/22/21 15:00 Acetaminophen 500 Mg Tablet PO 05/25/21 09:01 Q6H [facility] Acetaminophen 1,000 mg 05/25/21 17:00 Acetaminophen 500 Mg Tablet PO 05/25/22 16:59 Q8H EARLENE Ascorbic Acid 500 mg 05/22/21 17:00 Ascorbic Acid 500 Mg Tablet PO 05/22/22 16:59 BID.WITH.MEALS EARLENE Aspirin 81 mg 05/22/21 09:00 Aspirin 81 Mg Tab.Chew PO 05/22/22 08:59 DAILY EARLENE Aspirin 81 mg 05/22/21 21:00 Aspirin 81 Mg Tablet. PO 05/22/22 20:59 BID EARLENE Bisacodyl 10 mg 05/24/21 15:54 Bisacodyl 5 Mg Tablet. PO ONCE PRN Constipation Calcium Carbonate 1 tab 05/22/21 21:00 Calcium Carbonate/Vitamin D3 500 Mg/200 Unit Tablet PO 05/22/22 20:59 BID [facility] Diphenhydramine HCl 25 mg 05/22/21 15:54 Diphenhydramine 25 Mg Capsule PO 05/22/22 15:53 HS PRN Insomnia Docusate Sodium 100 mg 05/22/21 21:00 Docusate 100 Mg Capsule PO 05/22/22 20:59 BID [facility] Ferrous Sulfate 324 mg 05/22/21 17:00 Ferrous Sulfate 324 Mg Tablet. PO 05/22/22 16:59 BID.WITH.MEALS EARLENE Finasteride 5 mg 05/22/21 09:00 Finasteride 5 Mg Tablet PO 05/22/22 08:59 DAILY [facility] Gabapentin 300 mg 05/22/21 09:00 Gabapentin 300 Mg Capsule PO 05/22/22 08:59 BID [facility] Guaifenesin/Dextromethorphan 10 ml 05/22/21 09:00 Guaif/Dextromethorphan Syrup 10 Ml Udc PO 05/22/22 08:59 QID PRN Cough Hydromorphone HCl 0.5 mg 05/22/21 13:38 Hydromorphone 0.5 Mg/0.5 Ml Syringe IV-PUSH 05/22/21 19:39 Q5M PRN Pain Hydromorphone HCl 0.5 mg 05/22/21 15:54 Hydromorphone 0.5 Mg/0.5 Ml Syringe IV-PUSH Q2H PRN Pain Scale 1 - 3 Hydromorphone HCl 1 mg 05/22/21 15:54 Hydromorphone 1 Mg/Ml Syringe IV-PUSH Q2H PRN Pain Scale 4 - 6 Hydromorphone HCl 1.5 mg 05/22/21 15:54 Hydromorphone 1 Mg/Ml Syringe IV-PUSH Q2H PRN Pain Scale 7 - 10 Hyoscyamine 0.125 mg 05/22/21 04:21 Hyoscyamine Sulfate 0.125 Mg Tab.Rapdis PO 05/22/22 04:20 QID PRN Spasms Lactated Ringer's 1,000 mls @ 20 mls/hr 05/22/21 08:47 05/22/21 16:59 Lactated Ringers IV 05/23/21 08:46 Infused .Q24H ONE Infusion Lactated Ringer's 1,000 mls @ 20 mls/hr 05/22/21 09:31 05/22/21 17:00 Lactated Ringers IV 05/23/21 09:30 20 mls/hr .Q24H ONE Infusion Cefazolin Sodium 1 gm in 50 mls @ 100 mls/hr 05/22/21 20:21 Ancef IV 05/23/21 04:50 Q8H EARLENE Lactated Ringer's 1,000 mls @ 75 mls/hr 05/22/21 16:00 Lactated Ringers IV 05/22/22 15:59 .[id number] EARLENE Lact Acid/Bifidobact/Lact [place]ac[place]/Streptoc Th 1 cap 05/22/21 09:00 L. Acidophilus/Strept/La P-Carlos 1 Cap Capsule PO 05/22/22 08:59 DAILY EARLENE Levetiracetam 500 mg 05/22/21 09:00 Levetiracetam 500 Mg Tablet PO 05/22/22 08:59 BID EARLENE Magnesium Hydroxide 30 ml 05/22/21 15:54 Magnesium Hydroxide Susp 30 Ml Udc PO 05/22/22 15:53 BID PRN Constipation Mineral Oil 1 each 05/25/21 15:54 Mineral Oil ([place]) 1 Each Enema [place] ONCE PRN Constipation Mirtazapine 30 mg 05/22/21 22:00 Mirtazapine 30 Mg Tablet PO 05/22/22 21:59 QHS EARLENE Naloxone HCl 0.4 mg 05/22/21 15:54 Naloxone Hcl 0.4 Mg/Ml Vial IV-PUSH 05/22/22 15:53 Q2M PRN Opioid Reversal Nystatin 1 applic 05/22/21 09:00 Nystatin 100,000 Unit/Gram Powder 15 Gm Bottle TOPICAL 05/22/22 08:59 DAILY [facility] Omeprazole 40 mg 05/22/21 09:00 Omeprazole 20 Mg Capsule.Dr PO 05/22/22 08:59 DAILY [facility] Ondansetron HCl 4 mg 05/22/21 13:38 Ondansetron 4 Mg/2 Ml Vial IV-PUSH 05/22/21 19:39 ONCE PRN Nausea/Vomiting Ondansetron HCl 4 mg 05/22/21 15:54 Ondansetron 4 Mg/2 Ml Vial IV-PUSH 05/22/22 15:53 Q6H PRN Nausea Oxybutynin Chloride 5 mg 05/22/21 09:00 Oxybutynin Chloride 5 Mg Tablet PO 05/22/22 08:59 DAILY [facility] Oxycodone HCl 5 mg 05/22/21 15:54 Oxycodone Ir 5 Mg Tablet PO Q4HR PRN Pain Scale 6 - 10 Sodium Chloride 0 ml 05/22/21 08:47 Sodium Chloride 0.9 % 10 Ml Syringe IV-PUSH 05/22/22 08:46 PRN PRN Flush Sodium Chloride 0 ml 05/22/21 09:31 Sodium Chloride 0.9 % 10 Ml Syringe IV-PUSH 05/22/22 09:30 PRN PRN Flush Sodium Chloride 0 ml 05/22/21 22:00 Sodium Chloride 0.9 % 10 Ml Syringe IV-PUSH 05/22/22 21:59 QSHIFT [facility] Sodium Chloride 0 ml 05/22/21 15:54 Sodium Chloride 0.9 % 10 Ml Syringe IV-PUSH 05/22/22 15:53 PRN PRN Flush Tamsulosin HCl 0.4 mg 05/22/21 09:00 Tamsulosin 0.4 Mg Cap.Er.24h PO 05/22/22 08:59 DAILY [facility] Vitamin D 50 mcg 05/22/21 09:00 Cholecalciferol 25 Mcg (1,000 Units) Tablet PO 05/22/22 08:59 DAILY [facility] Exam Physical Exam Vital Signs: Temp Pulse Resp BP Pulse Ox 98.1 F 76 16 100/57 L 100 05/22/21 15:48 05/22/21 15:48 05/22/21 15:48 05/22/21 15:48 05/22/21 15:48 Narrative: Constitutional : Cooperative, alert and awake HEENT : Normocephalic, atraumatic, oral mucosa moist Eyes: PEERLA, EOM intact bilaterally Respiratory : Clear to auscultation bilaterally, no wheezes rhonchi or crackles Cardio : Rate regular, rhythm regular, no murmurs or gallops , S1-S2 normal GI : Soft, nontender, no hepatosplenomegaly appreciated Neuro: Alert, awake, oriented x3, no focal motor deficits appreciated, cranial nerves grossly intact, deep tendon reflexes symmetrical bilaterally Extremities: No pedal edema, clubbing or cyanosis present Results Lab Results Labs: Laboratory Results - last 72 hr 05/22/21 08:59: Blood Type Recheck O Positive 05/05/21 16:20: Blood Type O Positive, Antibody Screen Negative, Crossmatch (AHG) See Detail A&P - Hospitalist Assessment/Plan (1) Left hip pain: (2) Obesity: (3) Hyperlipidemia: Plan Patient is 75-year-old male with past medical history of CAD s/p stents in July 2020, has been admitted under orthopedic service, patient is s/p right total hiparthroplasty, hospitalist team has been consulted for medical management, patient's blood pressure is currently controlled, patient is on aspirin and Brilinta, patient has been started on aspirin, Brilinta on hold, as per report, patient was going in and out of A. fib postop, but has already been seen by cardiology postop, recommended to place patient in telemetry, patient currently in sinus, lab work ordered for tomorrow morning, We will continue to follow Thanks for the consult Documented By: Antonieta Combs MD 05/22/21 1738 Signed By: <Electronically signed by Antonieta Combs MD> 05/22/21 175 [facility] Work Phone: Chief complaint Narrative - Reported* ANGELLA PRADHAN is being seen for a cardiovascular evaluation . BP CHECK AND EKG DUE TO PT SYMPTOMS. * ANGELLA PRADHAN is being seen for BRADYCARDIA, LOW BP, AND PALPS. -[facility] 250 DO Work Phone: Discharge summary Author Horace Palafox [facility] June 12, 2021 10:52am Note Date/Time June 11, 2021 2:00pm [facility] [address] [place], [place] [id number] Discharge Summary Signed Patient: Angella Pradhan MR#: [id number] : 1945 Acct:[id number] Age/Sex: 75 / M Adm Date: 2 Loc: Room: [address] [place] [address]: Horace Palafox MD Copies to: MD Cesilia Gonsalves APRN Joseph Riley, MD~ Providers <Cesilia Rosales APRN - Last Filed: 06/11/21 14:10> Date of Discharge: 06/11/21 Discharging Provider: Cesilia Rosales Primary Care Provider: Ace Abbott Consults: 05/27/21 15:47 Consult to Adult Hospitalist Routine Consult to Dietitian Routine Consult to Occupational Therapy Routine Consult to Physical Therapy Routine Speech Admit Screen Routine 06/08/21 15:09 Consult to General Surgery Routine <Horace Palafox MD - Last Filed: 06/12/21 10:52> Discharging Provider: Horace Palafox Primary Care Provider: Ace Abbott Discharge Diagnosis <Cesilia Rosales APRN - Last Filed: 06/11/21 14:10> (1) Impaired mobility and activities of daily living: (2) Pressure ulcer, stage 1: (3) S/P total left hip arthroplasty: (4) BPH (benign prostatic hyperplasia): (5) Paroxysmal A-fib: (6) Coronary artery disease: (7) Hyperlipidemia: Final Diagnosis Final Discharge Diagnosis: As above <Horace Palafox MD - Last Filed: 06/12/21 10:52> (1) Impaired mobility and activities of daily living: (2) Pressure ulcer, stage 1: (3) S/P total left hip arthroplasty: (4) BPH (benign prostatic hyperplasia): (5) Paroxysmal A-fib: (6) Coronary artery disease: (7) Hyperlipidemia: Summary <Cesilia Rosales APRN - Last Filed: 06/11/21 14:10> Hospital Course Hospital course: Mr. Pradhan is a 75 year old male with a past medical history of arthritis, BPH,CAD, [place] s/p coronary artery stenting, who is admitted to rehabilitation for functional decline status post elective left total hip arthroplasty. He reports a longstanding history of bilateral hip pain as a result of [id number] .? The surgery was planned to be performed sometime last year however he sustained a myocardial infarction in July 2020, which required stenting and resulted in prolonged recovery.? He has been residing at [facility] since his heart attack.? He is telling me as soon as he is finishedwith rehabilitation and medically cleared by cardiology, he will have his right hip replaced also. Postop course was complicated by a new onset atrial fibrillation which spontaneously converted to sinus rhythm. Cardiology was consulted. He was placed on Eliquis and Sotalol.? He remains in normal sinus rhythm on current therapy. Rehab course was mostly uncomplicated. Patient was admitted with coccyx decubitus ulcer. Unfortunately, he developed symptoms of worsening pain, increased foul drainage and surrounding erythema. Wound culture revealed rare staph epidermidis species for which he was placed on levofloxacin 750 mg x10 days. He was evaluated by general surgery for possible wound debridement. It was deemed unnecessary at this time. He was recommended to follow-up with Dr. Rodriguez outpatient for worsening symptoms. His Ghotra catheter was maintained at discharge to help with wound healing. Patient requested to be discharged to [place] assisted living which was ok givenhis improvement in mobility. He is able to ambulate short distances with a wheeled walker standby assist, and propels self in a wheelchair for functional household and community distances. Condition Condition at Discharge: Stable Status at Discharge Functional status at discharge: wheelchair bound Overall status at discharge: patient is progressing back to baseline Time Spent with Patient Time spent providing/coordinating discharge services (# min): 35 <Horace Palafox MD - Last Filed: 06/12/21 10:52> Hospital Course Hospital course: Mr. Pradhan is a 75 year old male with a past medical history of arthritis, BPH,CAD, MO s/p coronary artery stenting, who is admitted to rehabilitation for functional decline status post elective left total hip arthroplasty. He reports a longstanding history of bilateral hip pain as a result of [id number] .? The surgery was planned to be performed sometime last year however he sustained a myocardial infarction in July 2020, which required stenting and resulted in prolonged recovery.? He has been residing at [facility] since his heart attack.? He is telling me as soon as he is finishedwith rehabilitation and medically cleared by cardiology, he will have his right hip replaced also. Postop course was complicated by a new onset atrial fibrillation which spontaneously converted to sinus rhythm. Cardiology was consulted. He was placed on Eliquis and Sotalol.? He remains in normal sinus rhythm on current therapy. Rehab course was mostly uncomplicated. Patient was admitted with coccyx decubitus ulcer. Unfortunately, he developed symptoms of worsening pain, increased foul drainage and surrounding erythema. Wound culture revealed rare staph epidermidis species for which he was placed on levofloxacin 750 mg x10 days. He was evaluated by general surgery for possible wound debridement. It was deemed unnecessary at this time. He was recommended to follow-up with Dr. Rodriguez outpatient for worsening symptoms. His Ghotra catheter was maintained at discharge to help with wound healing. Patient requested to be discharged to [facility] living which was ok givenhis improvement in mobility. He is able to ambulate short distances with a wheeled walker standby assist, and propels self in a wheelchair for functional household and community distances. I reviewed the history and the relevant portions of the chart, including currentorders, allied health and consultant electronics notes, labs/imaging and plan of care as above. Time Spent with Patient Specific discharge activities: Total time spent discharging this patient > 30 minutes Greater than 30 minutes spent preparing the patient for discharge including the following: Discussion of the hospital stay with patient and/or family Instructions for continuing care to all relevant caregivers Reviewing discharge plan with medical staff, social work, care management, and nursing staff Supervision of discharge paperwork, medication reconciliation, prescriptions, and outpatient appointments Prescribed necessary DME at discharge when indicated Diagnostic Studies <Cesilia Rosales APRN - Last Filed: 06/11/21 14:10> Completed and Pending Studies Pending studies at discharge: 06/05/21 12:10 Wound Culture (Deep) Routine Preliminary micro results at discharge 06/05/21 12:10 Anaerobic Culture - Preliminary Coccyx - Decubitus Anaerobe isolated Exam <Cesilia Rosales APRN - Last Filed: 06/11/21 14:10> Physical Exam Vital Signs: Temp Pulse Resp BP Pulse Ox 98.3 F 63 18 101/69 96 06/11/21 10:02 06/11/21 10:02 06/11/21 10:02 06/11/21 10:02 06/11/21 10:02 Const General: cooperative, comfortable, no acute distress and well developed Nutritional Appearance: average body habitus Orientation: alert, awake and oriented x3 HEENT Head: normal to inspection, normocephalic and atraumatic Ears: hearing grossly normal bilaterally Mouth: oral mucosae normal Eyes General: appearance normal, both eyes and all related structures Visual Srivastava: normal visual srivastava by confrontation Pupils: PERRL EOM: EOM intact bilaterally Neck Neck: normal visual inspection, full ROM, no lymphadenopathy and trachea midline Chest Chest palpation & inspection: normal inspection of the chest Resp Effort & Inspection: normal respiratory effort, able to speak in complete sentences, symmetric chest movement, no audible wheezes and no cough Auscultation: clear to auscultation bilaterally Cardio Jugular venous pressure: no JVD Palpation: normal PMI Rate: regular rate Rhythm: regular rhythm Heart Sounds: S1 normal and S2 normal GI Inspection: normal to inspection Palpation: soft and no hepatosplenomegaly Auscultation: hyperactive bowel sounds Musc Cervical Spine: normal cervical lordosis and cervical ROM normal Skin Wounds: wounds noted Neuro General: patient alert, patient awake and patient oriented x3 Cranial Nerves: CN's II-XII intact bilaterally Cognition: normal cognition Speech: speech normal Motor: muscle tone normal throughout Sensory Exam: no sensory deficits noted Extrem General: capillary refill normal and edema Laterality: bilaterally (Foot and leg) Severity: pitting and 3+ Psych Appearance: grossly normal Mental Status: mental status grossly normal Mood: congruent mood Affect: normal affect Speech and Movement: speech and movement normal Attitude: cooperative Thought Process: normal Insight: fair Judgment: fair Discharge Plan Discharge Plan Patient Disposition: Home Activity: Ambulate as Tolerated and May Shower Comment: weight bearing as tolerated Diet: Regular Additional Instructions: -Full Code -Diet: regular -BLE ACEs or leslie hose -Turn Q2 hrs -Daily weight -Boost plus BID -Ok to leave hip open to air, notify surgeon if incision has drainage -Wound care coccyx ulcer: clean with vashe wash and allow to soak for 5 minutes.Pat dry. Apply therahoney sheet to wound bed and top with Polymem [employer] and mepilexborder foam. -Activity: weight bearing as tolerated. Total hip precautions: do not cross legs, do not excessively rotate hip inwards/outwards OR extend leg; do not flex past 90 degrees at waist, do not lift leg to the side; do not cross operative ankle over opposite knee. Instructions: Pressure Sores (DC), Total Hip Replacement (DC) Prescriptions: New sennosides [Senna Lax] 8.6 mg Tablet 2 tab PO DAILY@12 Qty: 0 RF: 0 levofloxacin 750 mg Tablet 750 mg PO DAILY 5 Days Qty: 0 RF: 0 zinc sulfate [Orazinc] 50 mg zinc (220 mg) Capsule 220 mg PO DAILY Qty: 0 RF: 0 ferrous sulfate 324 mg (65 mg iron) Tablet,Delayed Release (Dr/Ec) 324 mg PO DAILY Qty: 0 RF: 0 acetaminophen 500 mg Tablet 500 mg PO Q4H PRN (Reason: Pain) Qty: 0 RF: 0 Eliquis 5 mg Tablet 5 mg PO BID Qty: 30 RF: 0 Continued cholecalciferol (vitamin D3) [Vitamin D3] 50 mcg (2,000 unit) Tablet 50 mcg PO QAM RF: 0 levetiracetam [Keppra] 500 mg Tablet 500 mg PO BID RF: 0 dextromethorphan-guaifenesin 10-100 mg/5 mL Syrup 10 ml PO QID PRN (Reason: Cough) RF: 0 omeprazole 40 mg Capsule,Delayed Release(Dr/Ec) 40 mg PO QAM RF: 0 tamsulosin 0.4 mg Capsule 0.4 mg PO QAM RF: 0 hyoscyamine sulfate [Levsin] 0.125 mg Tablet 0.125 mg PO QID PRN (Reason: Spasms) RF: 0 gabapentin 300 mg Capsule 300 mg PO BID RF: 0 nystatin 100,000 unit/gram Powder 1 applic TOPICAL DAILY RF: 0 finasteride 5 mg Tablet 5 mg PO QAM RF: 0 Advanced Probiotic 625 mg (10 billion cell) Capsule 1 cap PO QAM RF: 0 midodrine 5 mg Tablet 10 mg PO TID.7A.12P.5P RF: 0 sotalol [Sotalol AF] 120 mg Tablet 60 mg PO BID RF: 0 ascorbic acid (vitamin C) [Vitamin C] 500 mg Tablet 500 mg PO BID.WITH.MEALS RF: 0 Eliquis 5 mg Tablet 5 mg PO BID RF: 0 digoxin 125 mcg (0.125 mg) tablet 125 mcg PO QAM RF: 0 calcium carbonate 500 mg calcium (1,250 mg) Tablet 500 mg PO BID.WITH.MEALS RF: 0 oxycodone 5 mg Tablet 5 mg PO Q4HR PRN (Reason: Pain Scale 6 - 10) 5 Days Qty: 30 RF: 0 Discontinued oxybutynin chloride 5 mg Tablet 5 mg PO QAM RF: 0 oxycodone-acetaminophen [Percocet] 5-325 mg tablet 1 tab PO Q6H PRN (Reason: left hip pain ) 7 Days Qty: 28 RF: 0 aspirin [Children's Aspirin] 81 mg Tablet,Chewable 81 mg PO BID Qty: 0 RF: 0 oxycodone-acetaminophen [Percocet] 5-325 mg tablet 1 tab PO Q6H PRN (Reason: left hip pain ) 7 Days Qty: 28 RF: 0 ticagrelor 90 mg Tablet 90 mg PO BID RF: 0 Follow Up: [facility] [Outside] (Follow up for unstagable ulcer to coccyx. [place] needs to call for appt. ) Pino Dunbar MD [Active Staff] - ([facility] [place] to call to make follow-up and arrange transportation (per Monica)) Antoine Mead MD [Active Staff] - 07/13/21 10:00 am ([facility] office) Ace Abbott MD [Primary Care Provider] - Soham Cash Jr, DO [Courtesy/Consulting Physician] - (pt advocate for office will talk to about the timetable for followup. Patient's daughter had also called about the same thing.) Horace Palafox MD [Active Staff] - (Rehab Physician- follow up if/as needed.) Documented By: Cesilia Rosales APRN 06/11/21 1 352 Signed By: <Electronically signed by CASIMIRO Rosales> 06/11/21 1410 <Electronically signed by Horace Palafox MD> 06/12/21 1052 [facility] Work Phone: Evaluation + Plan note No data available for this section [facility] noteNo assessment information available [facility] Work Phone: evaluation note* Diagnosis Onset Date Resolution Status Atrial fibrillation, persistent acute Coronary artery disease acut e Hyperlipidemia acute Left hip pain acute Obesity acute Paroxysmal A-fib acute [facility] Work Phone: evaluation note* Diagnosis Onset Date Resolution Status Atrial fibrillation, persistent acute Coronary artery disease acut e Hyperlipidemia acute Left hip pain acute Obesity acute Paroxysmal A-fib acute BPH (benign prostatic hyperplasia) acute Coronary artery disease acut e Hyperlipidemia acute Impaired mobility and activities of daily living acute Paroxysmal A-fib acute Pressure injury of coccygeal region, stage 2 acute Pressure ulcer, stage 1 acut e S/P total left hip arthroplasty acute [facility] Work Phone: evaluation note* Diagnosis Onset Date Resolution Status Atrial fibrillation, persistent acute Hyperlipidemia acute Left hip pain acute Obesity acute Paroxysmal A-fib acute Coronary artery disease chronometer repairer kate BPH (benign prostatic hyperplasia) acute Hyperlipidemia acute Paroxysmal A-fib acute Pressure injury of coccygeal region, stage 2 acute Pressure ulcer, stage 1 acut e Coronary artery disease chronometer repairer kate Impaired mobility and activities of daily living chronic S/P total left hip arthroplasty chronic Chronic anticoagulation acut e Assistance needed for ambulation and movement chronic At high risk for skin breakdown chronic Coronary artery disease chronometer repairer kate Impaired mobility and activities of daily living chronic Pressure ulcer of sacral region, unstageable chronic S/P total left hip arthroplasty chronic Sacral decubitus ulcer, stage III resolved [facility] Work Phone: Evaluation note* Diagnosis Onset Date Resolution Status Afib acute Arthritis acute Chronic anticoagulation acut e Clostridioides difficile infection acute Generalized muscle weakness acute Hyperlipidemia acute Myocardial infarct acute Postoperative pain acute S/P total right hip arthroplasty acute UTI (urinary tract infection), bacterial acute Coronary artery disease chronometer repairer kate Impaired mobility and activities of daily living chronic S/P total left hip arthroplasty chronic [facility] Work Phone: Evaluation note* Diagnosis Onset Date Resolution Status Afib acute Arthritis acute Chronic anticoagulation acut e Clostridioides difficile infection acute Generalized muscle weakness acute Hyperlipidemia acute Myocardial infarct acute Postoperative pain acute S/P total right hip arthroplasty acute UTI (urinary tract infection), bacterial acute Coronary artery disease chronometer repairer kate Impaired mobility and activities of daily living chronic S/P total left hip arthroplasty chronic Abdominal pain acute Bradycardia acute Cholelithiasis acute Chronic anticoagulation acut e Elevated liver enzymes acute Epigastric pain acute First degree heart block acu te Hiatal hernia acute Jaundice acute Prolonged QT interval acute Symptomatic bradycardia acut e Coronary artery disease chronometer repairer kate [facility] Work Phone: Evaluation note* Diagnosis Persistent atrial fibrillation (CMS/HCC)- Primary Atrial fibrillation 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 Mixed hyperlipidemia Status post insertion of drug eluting coronary artery stent BMI 30.0-30.9,adult documented in this encounter [facility] Work Phone: Evaluation note* Diagnosis Benign prostatic hyperplasia, unspecified whether lower urinary tract symptoms present- Primary [facility]* Patient is here for follow-up continue management for history of multivessel coronary artery disease prior PCI to the LAD and diagonal with known occlusion of his RCA and distal circumflex. He also underwent PCI to the RCA. Since last time I saw him his only complaint is severe arthritis. He deniescomplaint chest pain, palpitation, lightheadedness, dizziness or syncope. He remains very sedentary due to his arthritis. * Assessment * 1. Multivessel coronary artery disease status post complex PCI to the LAD diagonal and a chronically occluded RCA successfully. He does have occlusion of the small distal circumflex left for medical therapy * 2. Preserved LV systolic function by echo and cath * 3. Obesity * 4. Hyperlipidemia * 5. Severe arthritic symptoms hip and knee * Plan * 1. I reviewed with the patient his recent hospitalization record, lab work and the result of his heart cath and PCI * 2. The natural history of ischemic heart disease discussed * 3. The importance of risk factor modification was discussed * 4. Patient asked me when can he proceed with hip surgery and I told him sometimes and early May would be safe to proceed * 5. We will repeat his lab work in 9 months * 6. Discussed risk factor modification -[facility] 600 DO Work Phone: History of Present illness Narrative* Patient is here for blood pressure check and for follow-up from recent hospitalization apparently was seen by Dr. Arredondo for atrial fibrillation he was placed on sotalol. His medication was adjusted. He was started on Eliquis and his Brilinta was discontinued. Patient has been having problems withlow blood pressure and midodrine was added. Today he denies any complaint. Blood pressure remains on the low range * Assessment * 1. Atrial fibrillation currently on sotalol currently in sinus rhythm with normal QTc interval * 2. Borderline hypotension responded to midodrine * 3. Coronary artery disease with complex PCI last year * Plan * 1. Remain on the same medication but take aspirin 3 times weekly considering coronary artery disease * 2. Use midodrine for low blood pressure * 3. Patient advised to notify me change in cardiac status or symptoms and keep his follow-up appointment [facility] 250 DO Work Phone: [facility] Work Phone: InstructionsNot on filedocumented in this encounter [facility]* Attachments The following attachments cannot be sent through Care Everywhere. * Benign prostatic hyperplasia (enlarged prostate) (Romanian) [facility] Author Rogers Lujan [facility] May 27, 2021 1:50pm Note Date/Time May 27, 2021 1:5 0pm [facility] [address] [place] [address] Hospitalist Progress Note Signed Patient: Angella Pradhan MR#: [id number] : 1945 Acct:[id number] Age/Sex: 75 / M Adm Date: 2 Loc: Room: [address] [place] [address] Type : ADM IN Attending Dr: Soham Cash Jr DO Copies to: ~ Date of Service: 05/27/2021 Subjective Subjective Narrative: Patient was in the recliner on my encounter this morning, the patient was hypotensive however he's asymptomatic Exam Physical Exam Vital Signs: Temp Pulse Resp BP Pulse Ox 97.6 F 69 18 94/60 L 94 L 05/27/21 11:53 05/27/21 11:53 05/27/21 04:00 05/27/21 11:53 04/20/22 11:53 Narrative: Constitutional : Cooperative, alert and awake HEENT : Normocephalic, atraumatic, oral mucosa moist Eyes: PEERLA, EOM intact bilaterally Respiratory : Clear to auscultation bilaterally, no wheezes rhonchi or crackles Cardio : Rate regular, rhythm regular, no murmurs or gallops , S1-S2 normal GI : Soft, nontender, no hepatosplenomegaly appreciated Neuro: Alert, awake, oriented x3, no focal motor deficits appreciated, cranial nerves grossly intact, deep tendon reflexes symmetrical bilaterally Extremities: No pedal edema, clubbing or cyanosis present Objective Lab Results CBC & Chem 7: 05/24/21 04:44 05/24/21 05:58 Microbiology Results Microbiology 05/24/21 12:25 Blood - Left Hand Blood Culture - Preliminary No Growth 3 Days 05/24/21 12:31 Blood - Right Antecubital Blood Culture - Preliminary Meds Allergies and Active Meds Allergies No Known Allergies Allergy (Verified 05/05/21 16:03) Active Meds: Active Medications Generic Name Dose Route Start Last Admin Trade Name Freq PRN Reason Stop Dose Admin Acetaminophen 1,000 mg 05/25/21 17:00 05/27/21 08:37 Acetaminophen 500 Mg Tablet PO 05/25/22 16:59 1,000 mg Q8H EARLENE Administration Apixaban 5 mg 05/27/21 21:00 Apixaban 5 Mg Tablet PO 05/27/22 20:59 BID EARLENE Ascorbic Acid 500 mg 05/22/21 17:00 05/27/21 08:33 Ascorbic Acid 500 Mg Tablet PO 05/22/22 16:59 500 mg BID.WITH.MEALS EARLENE Administration Aspirin 81 mg 05/22/21 21:00 05/27/21 08:35 Aspirin 81 Mg Tablet.Dr PO 05/22/22 20:59 81 mg BID EARLENE Administration Bisacodyl 10 mg 05/24/21 15:54 Bisacodyl 5 Mg Tablet. PO ONCE PRN Constipation Calcium Carbonate 1 tab 05/22/21 21:00 05/27/21 08:32 Calcium Carbonate/Vitamin D3 500 Mg/200 Unit Tablet PO 05/22/22 20:59 1 tab BID EARLENE Administration Digoxin 125 mcg 05/26/21 09:00 05/27/21 08:36 Digoxin 125 Mcg Tablet PO 05/26/22 08:59 125 mcg DAILY EARLENE Administration Diphenhydramine HCl 25 mg 05/22/21 15:54 05/25/21 00:28 Diphenhydramine 25 Mg Capsule PO 05/22/22 15:53 25 mg HS PRN Administration Insomnia Docusate Sodium 100 mg 05/22/21 21:00 05/27/21 08:34 Docusate 100 Mg Capsule PO 05/22/22 20:59 100 mg BID EARLENE Administration Ferrous Sulfate 324 mg 05/22/21 17:00 05/27/21 08:33 Ferrous Sulfate 324 Mg Tablet.Dr PO 05/22/22 16:59 324 mg BID.WITH.MEALS EARLENE Administration Finasteride 5 mg 05/22/21 09:00 05/27/21 08:32 Finasteride 5 Mg Tablet PO 05/22/22 08:59 5 mg DAILY EARLENE Administration Gabapentin 300 mg 05/22/21 09:00 05/27/21 08:33 Gabapentin 300 Mg Capsule PO 05/22/22 08:59 300 mg BID EARLENE Administration Guaifenesin/Dextromethorphan 10 ml 05/22/21 09:00 Guaif/Dextromethorphan Syrup 10 Ml Udc PO 05/22/22 08:59 QID PRN Cough Hydromorphone HCl 0.5 mg 05/22/21 15:54 05/23/21 05:06 Hydromorphone 0.5 Mg/0.5 Ml Syringe IV-PUSH 0.5 mg Q2H PRN Administration Pain Scale 1 - 3 Hydromorphone HCl 1 mg 05/22/21 15:54 Hydromorphone 1 Mg/Ml Syringe IV-PUSH Q2H PRN Pain Scale 4 - 6 Hydromorphone HCl 1.5 mg 05/22/21 15:54 Hydromorphone 1 Mg/Ml Syringe IV-PUSH Q2H PRN Pain Scale 7 - 10 Hyoscyamine 0.125 mg 05/22/21 04:21 Hyoscyamine Sulfate 0.125 Mg Tab.Rapdis PO 05/22/22 04:20 QID PRN Spasms Sodium Chloride 1,000 mls @ 100 mls/hr 05/25/21 14:00 05/27/21 06:28 0.9% Sodium Chloride 1,000 Ml IV 05/25/22 13:59 100 mls/hr .Q10H EARLENE Administration Lact Acid/Bifidobact/Lact [place]/Streptoc Th 1 cap 05/22/21 09:00 05/27/21 08:34 L. Acidophilus/Strept/[place] 1 Cap Capsule PO 05/22/22 08:59 1 cap DAILY EARLENE Administration Levetiracetam 500 mg 05/22/21 09:00 05/27/21 08:34 Levetiracetam 500 Mg Tablet PO 05/22/22 08:59 500 mg BID EARLENE Administration Magnesium Hydroxide 30 ml 05/22/21 15:54 Magnesium Hydroxide Susp 30 Ml Udc PO 05/22/22 15:53 BID PRN Constipation Midodrine 10 mg 05/26/21 17:00 05/27/21 11:36 Midodrine 5 Mg Tablet PO 05/26/22 16:59 10 mg TID.7A.12P.5P EARLENE Administration Mineral Oil 1 each 05/25/21 15:54 Mineral Oil ([place]) 1 Each Enema [place] ONCE PRN Constipation Mirtazapine 30 mg 05/22/21 22:00 05/26/21 22:49 Mirtazapine 30 Mg Tablet PO 05/22/22 21:59 30 mg QHS EARLENE Administration Naloxone HCl 0.4 mg 05/22/21 15:54 Naloxone Hcl 0.4 Mg/Ml Vial IV-PUSH 05/22/22 15:53 Q2M PRN Opioid Reversal Nystatin 1 applic 05/22/21 09:00 05/27/21 08:43 Nystatin 100,000 Unit/Gram Powder 15 Gm Bottle TOPICAL 05/22/22 08:59 1 applic DAILY EARLENE Administration Omeprazole 40 mg 05/22/21 09:00 05/27/21 08:32 Omeprazole 20 Mg Capsule. PO 05/22/22 08:59 40 mg DAILY EARLENE Administration Ondansetron HCl 4 mg 05/22/21 15:54 Ondansetron 4 Mg/2 Ml Vial IV-PUSH 05/22/22 15:53 Q6H PRN Nausea Oxybutynin Chloride 5 mg 05/22/21 09:00 05/27/21 08:34 Oxybutynin Chloride 5 Mg Tablet PO 05/22/22 08:59 5 mg DAILY EARLENE Administration Oxycodone HCl 5 mg 05/22/21 15:54 05/27/21 08:36 Oxycodone Ir 5 Mg Tablet PO 5 mg Q4HR PRN Administration Pain Scale 6 - 10 Sodium Chloride 0 ml 05/22/21 08:47 Sodium Chloride 0.9 % 10 Ml Syringe IV-PUSH 05/22/22 08:46 PRN PRN Flush Sodium Chloride 0 ml 05/22/21 09:31 Sodium Chloride 0.9 % 10 Ml Syringe IV-PUSH 05/22/22 09:30 PRN PRN Flush Sodium Chloride 0 ml 05/22/21 22:00 05/27/21 06:28 Sodium Chloride 0.9 % 10 Ml Syringe IV-PUSH 05/22/22 21:59 Not Given QSHIFT EARLENE Sodium Chloride 0 ml 05/22/21 15:54 Sodium Chloride 0.9 % 10 Ml Syringe IV-PUSH 05/22/22 15:53 PRN PRN Flush Sotalol HCl 60 mg 05/25/21 21:00 05/27/21 08:35 Sotalol 120 Mg Tablet PO 05/25/22 20:59 60 mg BID EARLENE Administration Tamsulosin HCl 0.4 mg 05/22/21 09:00 05/27/21 08:33 Tamsulosin 0.4 Mg Cap.Er.24h PO 05/22/22 08:59 0.4 mg DAILY EARLENE Administration Vitamin D 50 mcg 05/22/21 09:00 05/27/21 08:35 Cholecalciferol 25 Mcg (1,000 Units) Tablet PO 05/22/22 08:59 50 mcg DAILY EARLENE Administration A&P - Hospitalist Assessment/Plan (1) Left hip pain: (2) Obesity: (3) Hyperlipidemia: Plan Assessment plan *Left hip fracture status post hip arthroplasty, management per orthopedics *Hypotension, BP has improved, cont on IVF at 100 ml/hr, cont on Midodrine *History of A. fib Heart rate is controlled, continues to be on sotalol/Dig/Eliquis Documented By: Rogers Sharma MD 2 1349 Signed By: <Electronically signed by Rogers Sharma MD> 05/27/21 1350 [facility] Work Phone: Progress note No data available for this section [facility] Chief Complaint ANGELLA PRADHAN is being seen for a 6 month follow-up of.* Patient in the office today for an EKG for Atrial fiib after hospital stay and medication changes. Patient was taken of Coreg and Digoxin and Sotalol does was decreased from 120mg twice daily to 60mgtwice daily. He is taking his medications as directed. Med list has been updated. He denies any issues and is asymptomatic at this time. * I reviewed with Phyllis Tabor RN * Reviewed via phone with Dr. Pino kaur for patient to go and he will review and we will contact patient with further orders. * Patient verbalized understanding. * Patient in the office today for an EKG for Atrial fiib after hospital stay and medication changes. Patient was taken of Coreg and Digoxin and Sotalol does was decreased from 120mg twice daily to 60mgtwice daily. He is taking his medications as directed. Med list has been updated. He denies any issues and is asymptomatic at this time. * I reviewed with Phyllis Tabor RN * Reviewed via phone with Dr. Pino kaur for patient to go and he will review and we will contact patient with further orders. * Patient verbalized understanding. * Patient in the office today for an EKG for Atrial fiib after hospital stay and medication changes. Patient was taken of Coreg and Digoxin and Sotalol does was decreased from 120mg twice daily to 60mgtwice daily. He is taking his medications as directed. Med list has been updated. He denies any issues and is asymptomatic at this time. * I reviewed with Phyllis Tabor RN * Reviewed via phone with Dr. Pino kaur for patient to go and he will review and we will contact patient with further orders. * Patient verbalized understanding. * Patient here for EKG ordered by Dr. Pino Dunbar MD due to AFIB. Dr. Milana Kilgore MD in suite. Patient Sotalol was recently decreased. No cardiac complaints. EKG reviewed by Dr. Pino Dunbar MD while patient in office. * to Dr. Pino Dunbar MD for review. Chief Complaint and Reason for Visit Chief Complaint DJD Chief Complaint DJD DJD DJD Reason for Visit Atrial fibrillation, persistent Coronary artery disease Hyperlipidemia Left hip pain Obesity Paroxysmal A-fib Chief Complaint DJD DJD DJD new onste A-Fib s/p gavin Reason for Visit Atrial fibrillation, persistent Coronary artery disease Hyperlipidemia Left hip pain Obesity Paroxysmal A-fib BPH (benign prostatic hyperplasia) Coronary artery disease Hyperlipidemia Impaired mobility and activities of daily living Paroxysmal A-fib Pressure injury of coccygeal region, stage 2 Pressure ulcer, stage 1 S/P total left hip arthroplasty Chief Complaint DJD new onste A-Fib s/p gavin Open Wound / [place] DJD Reason for Visit Atrial fibrillation, persistent Hyperlipidemia Left hip pain Obesity Paroxysmal A-fib Coronary artery disease BPH (benign prostatic hyperplasia) Hyperlipidemia Paroxysmal A-fib Pressure injury of coccygeal region, stage 2 Pressure ulcer, stage 1 Coronary artery disease Impaired mobility and activities of daily living S/P total left hip arthroplasty Chronic anticoagulation Assistance needed for ambulation and movement At high risk for skin breakdown Coronary artery disease Impaired mobility and activities of daily living Pressure ulcer of sacral region, unstageable S/P total left hip arthroplasty Sacral decubitus ulcer, stage III Chief Complaint DJD DJD Chief Complaint right hip osteoarthr itis s/p GAVIN abd pain, chest pain Reason for Visit Afib Arthritis Chronic anticoagulation Clostridioides difficile infection Generalized muscle weakness Hyperlipidemia Myocardial infarct Postoperative pain S/P total right hip arthroplasty UTI (urinary tract infection), bacterial Coronary artery disease Impaired mobility and activities of daily living S/P total left hip arthroplasty Chief Complaint right hip osteoarthr itis s/p GAVIN abd pain, chest pain Reason for Visit Afib Arthritis Chronic anticoagulation Clostridioides difficile infection Generalized muscle weakness Hyperlipidemia Myocardial infarct Postoperative pain S/P total right hip arthroplasty UTI (urinary tract infection), bacterial Coronary artery disease Impaired mobility and activities of daily living S/P total left hip arthroplasty Abdominal pain Bradycardia Cholelithiasis Chronic anticoagulation Elevated liver enzymes Epigastric pain First degree heart block Hiatal hernia Jaundice Prolonged QT interval Symptomatic bradycardia Coronary artery disease Family History No Family History Records Found Relationship Condition Age at Onset Recorded Date/T zaira father History of coronary artery stent placement Unknown Not Specified Medical history unknown Unknown Advance Directives No Advanced Directives Records Found Advance Directive Response Recorded Date/ Time Advance Directives No July 20 6:52pm Advance Directive Response Recorded Date/ Time Advance Directives No July 20 5:52pm Summary Purpose Reason for Referral Specialty Diagnoses / Procedures Referred By Contac t Referred To Contact Diagnoses Persistent atrial fibrillation (CMS/HCC) Procedures ECG 12 Lead Pino Dunbar MD [address] [place] [address] 2, [address] [place] [phone] Referral ID Status Reason Start Date Expiration Date V isits Requested Visits Authorized [id number] Pending Review 02/16/2023 02/16/2024 1 1 Specialty Diagnoses / Procedures Referred By Contac t Referred To Contact Cardiology Diagnoses Persistent atrial fibrillation (CMS/HCC) 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 Mixed hyperlipidemia Procedures Follow Up In Cardiology Pino Dunbar MD [address] [facility] 2, [facility] [address] [place] [phone] Pino Dunbar MD [address] [place] [address] 2, [place] [phone] Referral ID Status Reason Start Date Expiration Date V isits Requested Visits Authorized [id number] Authorized 02/16/2023 02/16/2024 1 1 Additional Source Comments Care Teams (unrecognized sec tion and content) Team Status: Active Member Role Status Yo Abbott MD Primary Care Provider Active Team Status: Inactive Member Role Status Dates Anna Navarro DO Emergency Provider Active Ace Abbott MD Primary Care Provider Active Anshu Jennings MD Admit Provider, Attending Provi jameson Active Delvin Rodriguez MD Other Provider Active Brisa Morales RN Other Provider Active Yasmine Ruelas DO Other Provider Active Rubén Graham MD Other Provider Active Parminder Arredondo MD Other Provider Active Pino Dunbar MD Other Provider Active Harsh Wren MD Other Provider Active Yazmin Lozada APRN Other Provider Active Milana Kilgore MD Other Provider Active Nat Arce MD Other Provider Active Ranjeet Lozano MD Other Provider Active Sherley León [facility] Other Provider Active Erin Ordonez MD Other Provider Active Jigar Church MD Other Provider Active Team Status: Inactive Member Role Status Dates Ace Abbott MD Primary Care Provider Active Horace Palafox MD Admit Provider, Attending Provider A mckenzie Castro , RN Other Provider Active Nona Nguyen , LIANG Other Provider Active Elma Quinn , RN Other Provider Active Sandra Joseph , LIANG Other Provider Active Chanelle Payne , LIANG Other Provider Active Ruthie Wing , LIANG Other Provider Active Mary Carmen Dickinson MD Other Provider Active Heriberto De Anda MD Other Provider Active Philly Horn , DRY PLACER MACHINE OPERATOR Other Provider Active Chioma Portillo , DO Other Provider Active Mario Loredo MD Other Provider Active Dereck Burns , DO Other Provider Active Miakel Bush MD Other Provider Active Debo Argueta MD Other Provider Active Jackelyn Ambriz , ANP-BC Other Provider Active Pramod Paulson MD Other Provider Active Chuck Tarango MD Other Provider Active Darren Woods MD Other Provider Active Clover Banerjee MD Other Provider Active Maycol Cristina , DO Other Provider Active Esme Turpin MD Other Provider Active Julio Shoemaker MD Other Provider Active Farhana Callaway , BILINGUAL TEACHER ASSISTANT-C Other Provider Active Thai Boyd MD Other Provider Active Serge Gonsalez MD Other Provider Active Markus Bailey MD Other Provider Active Marjan Tyson , DO Other Provider Active David Rizzo , DO Other Provider Active Luiz Slaughter , DO Other Provider Active Marguerite Marie DRY PLACER MACHINE OPERATOR Other Provider Active Constantino Salas , DO Other Provider Active Anshu Jennings MD Other Provider Active Bethanie Lozada DRY PLACER MACHINE OPERATOR Other Provider Active Zunilda Harrell , LIANG Other Provider Active Team Status: Active Member Role Status Dates Anna Navarro , DO Emergency Provider Active Ace Abbott MD Primary Care Provider Active Anshu Jennings MD Admit Provider, Attending Provi jameson Active Team Status: Inactive Member Role Status Dates Ace Abbott MD Primary Care Provider Active Soham Cash Jr, DO Attending Provider Active Team Status: Inactive Member Role Status Dates Ace Abbott MD Primary Care Provider Active Soham Stepanic Jr, DO Admit Provider, Attending Provi jameson Active Antonieta Combs MD Other Provider Active Parminder Arredondo MD Other Provider Active Team Status: Inactive Member Role Status Dates Ace Abbott MD Primary Care Provider Active Horace Palafox MD Admit Provider, Attending Provider A ctive Mariana Castro , LIANG Other Provider Active Nona Nguyen , LIANG Other Provider Active Elma Quinn , RN Other Provider Active Sandra Joseph , LIANG Other Provider Active Chanelle Payne , LIANG Other Provider Active Ruthie Wing , LIANG Other Provider Active Bethanie Jerez , LIANG Other Provider Active Mary Carmen Dickinson MD Other Provider Active Heriberto De Anda MD Other Provider Active Philly Horn APRN Other Provider Active Chioma Portillo , DO Other Provider Active Mario Loredo MD Other Provider Active Dereck Burns , DO Other Provider Active Mikael Bush MD Other Provider Active Debo Argueta MD Other Provider Active Robbie Whitmore MD Other Provider Active Jackelyn Ambriz , ANP-BC Other Provider Active Pramod Paulson MD Other Provider Active Chuck Tarango MD Other Provider Active Darren Woods MD Other Provider Active Clover Banerjee MD Other Provider Active Maycol Cristina , DO Other Provider Active Sha Clayton MD Other Provider Active Esme Turpin MD Other Provider Active Lexa Neal MD Other Provider Active Julio Shoemaker MD Other Provider Active Farhana Callaway , BILINGUAL TEACHER ASSISTANT-C Other Provider Active Thai Boyd MD Other Provider Active Serge Gonsalez MD Other Provider Active Aris Cantu MD Other Provider Active Ayah Gaitan MD Other Provider Active Antonieta Combs MD Other Provider Active Markus Bailey MD Other Provider Active Dalton Horner MD Other Provider Active Marjan Tyson , DO Other Provider Active Rogers Sharma MD Other Provider Active David Rizzo , DO Other Provider Active Luiz Slaughter , DO Other Provider Active Marguerite Marie DRY PLACER MACHINE OPERATOR Other Provider Active Zunilda Harrell , LIANG Other Provider Active Team Status: Inactive Member Role Status Dates Ace Abbott MD Primary Care Provider Active Crista Hopson APRN Active Delvin Rodriguez MD Attending Provider Active Sensitometrist Relationship Specialty Start Date End Date Ace Abbott MD [address] [place] [address] PCP - General 02/07/18 Sensitometrist Relationship Specialty Start Date End Date Ace Abbott MD [address] [place] [address] PCP - General 12/26/17 Sensitometrist Relationship Specialty Start Date End Date Ace Abbott MD [address] [place] [address] PCP - General 12/26/17 Goals (unrecognized section and content) Goals may be documented in a n alternate sectionGoals may be documented in an alternate sectionGoals may be documented in an alternate section No data available for this sectionGoals may be documented in an alternate sectionNot on filedocumented as of this encounterNot on filedocumented as of this encounter (unrecognized sect ion and content) No Status Records FoundNo Status Records FoundNo Status Records FoundNo Status Records FoundNo Status Records FoundNo Status Records FoundNo Status Records FoundNo Status Records Found INFORMATION SOURCE (unrecogn ized section and content) DATE CREATED AUTHOR 11/29/2021 [employer] DATE CREATED AUTHOR AUTHOR'S ORGANIZ ATION 04/16/2022 [facility] DATE CREATED AUTHOR AUTHOR'S ORGANIZ ATION 05/29/2022 [facility] DATE CREATED AUTHOR AUTHOR'S ORGANIZ ATION 07/17/2022 [facility] DATE CREATED AUTHOR AUTHOR'S ORGANIZ ATION 09/07/2022 [facility] DATE CREATED AUTHOR AUTHOR'S ORGANIZ ATION 04/21/2023 [facility] DATE CREATED AUTHOR AUTHOR'S ORGANIZ ATION 04/30/2023 [facility] DATE CREATED AUTHOR AUTHOR'S ORGANIZ ATION 05/28/2023 [facility] Reason for Visit (unrecogniz ed section and content) Reason Comments Follow-up 6 months Specialty Diagnoses / Procedures Referred By Tari t Referred To Contact Diagnoses Persistent atrial fibrillation (CMS/HCC) Procedures ECG 12 Lead Pino Dunbar MD [address] [facility] [place] [address] Referral ID Status Reason Start Date Expiration Date V isits Requested Visits Authorized [id number] Pending Review 02/16/2023 02/16/2024 1 1 Reason Comments Med Refill Reason Comments Follow-up FOR RECORDS PERTAINING TO PATIENTS WHO ARE OR HAVE BEEN ENROLLED IN A CHEMICAL DEPENDENCY/SUBSTANCEABUSE PROGRAM, SOME INFORMATION MAY BE OMITTED. This clinical summary was aggregated from multiple sources. Caution should be exercised in using it in the provision of clinical care. This summary normalizes information from multiple sources, and as a consequence, information in this document may materially change the coding, format and clinical context of patient data. In addition, data may be omitted in some cases. CLINICAL DECISIONS SHOULD BE BASED ON THE PRIMARY CLINICAL RECORDS. [facility]. provides no warranty or guarantee of the accuracy or completeness of information in this document.
[2023-06-18 11:05] LABS: Basophils Percent Auto 0.4 % (0.2-2.0); Eosinophils Absolute Auto 0.1 10^3/uL (0.0-0.7); Eosinophils Percent Auto 1.3 % (0.9-7.0); Hematocrit 43.4 % (42.0-54.0); Hemoglobin 13.8 g/dL (14.0-18.0); Immature Granulocytes Abs Auto 0.22 10^3/uL (0.00-0.03); Immature Granulocytes Pct Auto 2.1 % (0.0-0.5); Lymphocytes Absolute Auto 1.9 10^3/uL (1.2-3.8); Lymphocytes Percent Auto 17.7 % (20.5-60.0); Mean Corpuscular HGB Conc 31.8 g/dL (29.9-35.2); Mean Corpuscular Hemoglobin 27.4 pg (25.9-34.0); Mean Corpuscular Volume 86.1 fL (80.0-94.0); Mean Platelet Volume 8.7 fL (9.5-13.5); Monocytes Absolute Auto 1.4 10^3/uL (0.3-0.8); Monocytes Percent Auto 13.4 % (1.7-12.0); Neutrophils Absolute Auto 6.9 10^3/uL (1.4-6.5); Neutrophils Percent Auto 65.1 % (43.0-75.0); Platelet Count 262 10^3/uL (150-450); Red Blood Count 5.04 10^6/uL (4.70-6.10); Red Cell Distribution Width 16.2 % (11.0-15.0); White Blood Count 10.6 10^3/uL (4.0-11.0)
[2023-06-18 11:59] LABS: Free T4 1.25 ng/dL (0.76-1.46)
[2023-06-18 12:21] LABS: Alanine Aminotransferase 22 U/L (16-63); Albumin Globulin Ratio 0.5; Albumin Level 2.3 g/dL (3.4-5.0); Alkaline Phosphatase 86 U/L (46-116); Anion Gap 11.8; Aspartate Amino Transferase 16 U/L (15-37); BUN Creatinine Ratio 19.8; Bilirubin Total 0.7 mg/dL (0.2-1.0); Calcium 8.9 mg/dL (8.5-10.1); Carbon Dioxide 28.1 mmol/L (21.0-32.0); Chloride 101 mmol/L (98-107); Estimated GFR (African America >60 (>=60); Estimated GFR (Non-African Ame >60 (>=60); Globulin 4.3 g/dL; Glucose 134 mg/dL (74-106); Potassium 3.9 mmol/L (3.5-5.1); Sodium 137 mmol/L (136-145); Thyroid Stimulating Hormone 1.592 uIU/mL (0.358-3.740); Total Protein 6.6 g/dL (6.4-8.2)
== END 2023-06-18 10:31 | disposition home or self-care (01) ==
LOC: LAB 10:30
PROVIDERS: PCP Family Medicine; Visit Provider Family Medicine
DX: R60.9 Edema, unspecified (principal); I50.30 Unspecified diastolic (congestive) heart failure; I11.0 Hypertensive heart disease with heart failure
CPT/HCPCS: 36415; 80053; 83880; 84439; 84443; 85025

== ENCOUNTER 2023-06-30 15:11 | Emergency (ER) | payer MEDICARE, SELFPAY ==
[2023-06-30 15:14] VITALS: BP 139/78; PULSE 97; TEMP 37.2; O2SAT 97; BMI 29.4
--- NOTE | 2023-06-30 15:25 | XR_ITS ---
The [address] [address] Patient Name: ANGELLA JOHNSON MRN: [id number] date: 1945 Sex: M Assigned Patient Location: ER Current Patient Location: ER Accession/Order Number: [id number] Exam Date: 06/30/2023 15:45 Report Date: 06/30/2023 16:01 At the request of: [employer] Procedure: XR chest 1V EXAMINATION: XR chest 1V HISTORY: Congestive heart failure COMPARISON: No relevant comparison available. TECHNIQUE: AP portable FINDINGS: LUNGS: Low lung volumes. The lungs are clear VASCULATURE: No increased pulmonary vasculature. PLEURA: No pneumothorax, effusion, or pleural thickening. CARDIAC: No cardiomegaly or cardiac silhouette abnormality. MEDIASTINUM: No visible mass or adenopathy. Retrocardiac opacity, a hiatal hernia is favored BONES: Mild degenerative disc disease and spondylosis without visible acute abnormalities. OTHER: Negative. XR/XR chest 1V IMPRESSION: Low lung volumes, grossly clear lungs Electronically authenticated by: CADY DE LOS SANTOS Date: 06/30/2023 16:01
--- NOTE | 2023-06-30 15:25 | ECG_ITS ---
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: : 1945 Requested By: [id number] Order Number: [id number] Reading MD: ACE ABBOTT Measurements Intervals Patterson Rate: 77 P: -[id number] CA: -[id number] QRS: -16 QRSD: 78 T: -5 QT: 410 QTc: 442 Interpretive Statements 1210 Atrial fibrillation Non-Specific T wave inversion in III 5211 Minimal voltage criteria for LVH, may be normal variant 9140 abnormal rhythm ECG Compared to ECG 10/08/2021 13:15:47 Left ventricular hypertrophy now present Sinus bradycardia no longer present First degree AV block no longer present Prolonged QT interval no longer present T-wave abnormality no longer present Electronically Signed On 07-05-2023 9:45:49 EDT by ACE ABBOTT
--- NOTE | 2023-06-30 15:26 | ED.GENADUL1 ---
HPI HPI - General Adult General Chief complaint: Extremity Problem, Nontraumatic Stated complaint: LEG SWELLING Time Seen by Provider: 06/30/23 15:14 Source: patient Mode of arrival: ambulance Limitations: no limitations History of Present Illness HPI narrative: Patient is a very pleasant 77-year-old male To the emergency department by EMS from his primary care provider office for evaluation of bilateral lower extremity swelling and redness. Patient states for the last month he has had swelling that is now becoming more red to the lower extremities. He had an ultrasound of the bilateral lower extremities earlier this month. He states he had outpatient labs as well. His primary concern is that he is developing heart failure. 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 He denies shortness of breath or chest pain at this time. He states he has some pain in the legs when he walks but no other pain at rest. He was not started on any medications, diuretics or antibiotics for the symptoms. He is having clear fluid drainage from the lower legs and increasing redness to the open blistered areas. PCP office stated that the patient seemed mildly confused and was noted to be hypotensive. On arrival to the ER, he is awake and alert, oriented and states he feels better. Blood pressure has normalized. Related Data Home Medications ?Medication ?Instructions ?Recorded ?Confirmed apixaban 5 mg tablet (Eliquis) 5 mg PO BID 06/30/23 06/30/23 aspirin 81 mg tablet,delayed 81 mg PO DAILY 06/30/23 06/30/23 release (Adult Low Dose Aspirin) atorvastatin 40 mg tablet 40 mg PO DAILY 06/30/23 06/30/23 ferrous sulfate 325 mg (65 mg 650 mg PO DAILY 06/30/23 06/30/23 iron) tablet (FeroSul) finasteride 5 mg tablet 5 mg PO DAILY 06/30/23 06/30/23 furosemide 40 mg tablet 40 mg PO DAILY 06/30/23 06/30/23 magnesium oxide 400 mg (241.3 mg 400 mg PO BID 06/30/23 06/30/23 magnesium) tablet mirabegron 50 mg tablet,extended 50 mg PO DAILY 06/30/23 06/30/23 release 24 hr (Myrbetriq) pantoprazole 40 mg tablet,delayed 40 mg PO DAILY 06/30/23 06/30/23 release sotalol 80 mg tablet 40 mg PO Q12H 06/30/23 06/30/23 tamsulosin 0.4 mg capsule 0.4 mg PO DAILY 06/30/23 06/30/23 Previous Rx's ?Medication ?Instructions ?Recorded doxycycline hyclate 100 mg tablet 100 mg PO BID 10 days #20 tabs 06/30/23 Allergies Allergy/AdvReac Type Severity Reaction Status Date / Time Sulfa (Sulfonamide AdvReac Severe Hives Verified 06/30/23 15:24 Antibiotics) Opioid HPI Opioid Management Most Recent Opioid Data: Last Pain Scale 6 04/29/23 09:48 Review of Systems ROS Constitutional Denies: fever or chills Ears, nose, mouth, and throat Denies: throat pain or nasal congestion Cardiovascular Denies: chest pain Respiratory Denies: shortness of breath or cough Gastrointestinal Denies: nausea or vomiting Musculoskeletal Reports: extremity swelling; Denies: back pain Integumentary/Breast Reports: redness; Denies: rash Neurological Denies: headache Hematologic/Lymphatic Denies: easy bruising or easy bleeding Allergic/Immunologic Denies: hives [facility] Medical History (Updated 06/30/23 @ 17:15 by LIBRADO Webster) History of diabetes mellitus ?Z86.39 - Personal history of other endocrine, nutritional and metabolic disease (ICD-10) History of atrial fibrillation ?Z86.79 - Personal history of other diseases of the circulatory system (ICD-10) History of essential hypertension ?Z86.79 - Personal history of other diseases of the circulatory system (ICD-10) History of essential hypertension ?Z86.79 - Personal history of other diseases of the circulatory system (ICD-10) History of arthritis ?Z87.39 - Personal history of other diseases of the musculoskeletal system and connective tissue (ICD-10) History of CAD (coronary artery disease) ?Z86.79 - Personal history of other diseases of the circulatory system (ICD-10) History of carpal tunnel syndrome ?Z86.69 - Personal history of other diseases of the nervous system and sense organs (ICD-10) Surgical History (Updated 06/30/23 @ 15:43 by Cady Parker) History of right hip replacement ?Z96.641 - Presence of right artificial hip joint (ICD-10) History of total left hip replacement ?Z96.642 - Presence of left artificial hip joint (ICD-10) History of total left hip arthroplasty ?Z96.642 - Presence of left artificial hip joint (ICD-10) Hx of heart artery stent ?Z95.5 - Presence of coronary angioplasty implant and graft (ICD-10) History of cardiac catheterization ?Z98.890 - Other specified postprocedural states (ICD-10) Exam Narrative Exam Narrative: Gen.: Awake, alert, in no distress Head: Normocephalic, atraumatic ENT: Moist mucous membranes Respiratory: No respiratory distress, lungs clear bilaterally Cardio: Regular rate and rhythm Extremities: Moves extremities equally, 2+ pitting edema to the lower extremities, distal to the knees. Open blistered erythematous areas to the anterior tibias just proximal to the ankles with erythematous petechial area to the bilateral dorsums of the feet. Dorsums of the feet are also edematous with pitting edema. Psych: Normal mood and affect Neuro: No focal neuro deficit Skin: Warm, dry, intact Constitutional Vital Signs, click to edit/add: Last Vital Signs Temp 99 F 06/30/23 15:14 Pulse 71 06/30/23 15:40 Resp 20 06/30/23 15:14 BP 139/78 06/30/23 15:14 Pulse Ox 97 06/30/23 15:14 O2 Del Method Room Air 06/30/23 15:14 Course Vital Signs Vital signs: Vital Signs Temperature 99 F 06/30/23 15:14 Pulse Rate 97 H 06/30/23 15:14 Respiratory Rate 20 06/30/23 15:14 Blood Pressure 139/78 06/30/23 15:14 Pulse Oximetry 97 06/30/23 15:14 Oxygen Delivery Method Room Air 06/30/23 15:14 Temperature 99 F 06/30/23 15:14 Pulse Rate 71 06/30/23 15:40 Respiratory Rate 20 06/30/23 15:14 Blood Pressure 139/78 06/30/23 15:14 Pulse Oximetry 97 06/30/23 15:14 Oxygen Delivery Method Room Air 06/30/23 15:14 Medical Decision Making MDM Narrative Medical decision making narrative: Chest x-ray with no evidence of CHF or fluid overload. This was read by the radiologist. Patient is in rate controlled atrial fibrillation with stable vital signs in the ER. He is awake, alert and oriented and states he feels better than when he was in the PCP office. His lab studies are stable, no evidence of sepsis at this time. I discussed the case with Dr. Lou, we will attempt outpatient treatment at this time. Follow-up in the office tomorrow and return to the ER if symptoms change or worsen. Patient requested that his legs be wrapped and he was placed in dressings of the bilateral anterior tibias as well as Dean wrap's for compression. He is neurovascularly intact at discharge, elevate the legs. Doxycycline given for antibiotic coverage. Medical Records Medical records reviewed: Yes I reviewed the patient's medical records Lab Data Lab results reviewed: Yes I reviewed the patient's lab results Labs: Lab Results 06/30/23 06/30/23 Range/Units 15:42 15:43 WBC 10.0 (4.0-11.0) 10^3/uL RBC 4.79 (4.70-6.10) 10^6/uL Hgb 13.3 L (14.0-18.0) g/dL Hct 42.5 (42.0-54.0) % MCV 88.7 (80.0-94.0) fL MCH 27.8 (25.9-34.0) pg MCHC 31.3 (29.9-35.2) g/dL RDW 16.8 H (11.0-15.0) % Plt Count 275 (150-450) 10^3/uL MPV 9.2 L (9.5-13.5) fL Neut % (Auto) 61.2 (43.0-75.0) % Lymph % (Auto) 21.6 (20.5-60.0) % Burt % (Auto) 13.7 H (1.7-12.0) % Eos % (Auto) 1.5 (0.9-7.0) % Baso % (Auto) 0.7 (0.2-2.0) % Neut # (Auto) 6.1 (1.4-6.5) 10^3/uL Lymph # (Auto) 2.2 (1.2-3.8) 10^3/uL Burt # (Auto) 1.4 H (0.3-0.8) 10^3/uL Eos # (Auto) 0.2 (0.0-0.7) 10^3/uL Baso # (Auto) 0.1 (0.0-0.1) 10^3/uL Abs Immat Gran (auto) 0.13 H (0.00-0.03) 10^3/uL Imm/Tot Granulo (auto) 1.3 H (0.0-0.5) % ESR 91 H (<=20) mm/hr PT 11.6 (9.0-11.6) sec INR 1.11 Sodium 138 (136-145) mmol/L Potassium 3.7 (3.5-5.1) mmol/L Chloride 103 (98-107) mmol/L Carbon Dioxide 27.3 (21.0-32.0) mmol/L Anion Gap 11.4 BUN 11.0 (7.0-18.0) mg/dL Creatinine 0.73 (0.70-1.30) mg/dL Est GFR ( Amer) >60 (>=60) Est GFR (Non-Af Amer) >60 (>=60) BUN/Creatinine Ratio 15.1 Glucose 150 H (74-106) mg/dL Lactate 2.1 H (0.4-2.0) mmol/L Calcium 8.8 (8.5-10.1) mg/dL Total Bilirubin 0.5 (0.2-1.0) mg/dL AST 15 (15-37) U/L ALT 19 (16-63) U/L Alkaline Phosphatase 87 (46-116) U/L Troponin I High Sens 6.9 (4.0-76.1) pg/mL C-Reactive Protein 1.18 H (<=0.50) mg/dL NT-Pro-B Natriuret Pep 266.0 (<=1800.0) pg/mL Total Protein 6.3 L (6.4-8.2) g/dL Albumin 2.4 L (3.4-5.0) g/dL Globulin 3.9 g/dL Albumin/Globulin Ratio 0.6 Imaging Data Chest x-ray: Attestation: I have reviewed the pertinent imaging results. Radiologist's impression: ITS Impressions Chest X-Ray 06/30/23 15:25 IMPRESSION: Low lung volumes, grossly clear lungs Electronically authenticated by: CADY DE LOS SANTOS Date: 06/30/2023 16:01 ECG Data Attestation: I personally reviewed and interpreted this ECG as follows: (Atrial fibrillation at a rate Of 77, no acute ST elevation or ectopy. EKG reviewed by attending physician.) Discharge Plan Discharge Stand Alone Forms: Portal Instructions Chief Complaint: Extremity Problem, Nontraumatic Clinical Impression: Bilateral lower extremity edema Patient Disposition: Home, Self-Care Time of Disposition Decision: 17:15 Condition: Good Prescriptions / Home Meds: New doxycycline hyclate 100 mg tablet 100 mg PO BID 10 Days Qty: 20 0RF No Action Eliquis 5 mg tablet 5 mg PO BID atorvastatin 40 mg tablet 40 mg PO DAILY tamsulosin 0.4 mg capsule 0.4 mg PO DAILY sotalol 80 mg tablet 40 mg PO Q12H pantoprazole 40 mg tablet,delayed release (DR/EC) 40 mg PO DAILY mirabegron [Myrbetriq] 50 mg tablet extended release 24 hr 50 mg PO DAILY magnesium oxide 400 mg (241.3 mg magnesium) tablet 400 mg PO BID furosemide 40 mg tablet 40 mg PO DAILY finasteride 5 mg tablet 5 mg PO DAILY ferrous sulfate [FeroSul] 325 mg (65 mg iron) tablet 650 mg PO DAILY aspirin [Adult Low Dose Aspirin] 81 mg tablet,delayed release (DR/EC) 81 mg PO DAILY Print Language: Jordanian Instructions: Leg Edema (ED) Additional Instructions: Elevate your legs, follow up with Dr. Lou's office tomorrow Referrals: Archie Lou MD [Primary Care Provider] - 1 week
[2023-06-30 15:40] VITALS: PULSE 71; PULSE 73
[2023-06-30 16:19] LABS: Basophils Absolute Auto 0.1 10^3/uL (0.0-0.1); Basophils Percent Auto 0.7 % (0.2-2.0); Eosinophils Absolute Auto 0.2 10^3/uL (0.0-0.7); Eosinophils Percent Auto 1.5 % (0.9-7.0); Hematocrit 42.5 % (42.0-54.0); Hemoglobin 13.3 g/dL (14.0-18.0); Immature Granulocytes Abs Auto 0.13 10^3/uL (0.00-0.03); Immature Granulocytes Pct Auto 1.3 % (0.0-0.5); Lymphocytes Absolute Auto 2.2 10^3/uL (1.2-3.8); Lymphocytes Percent Auto 21.6 % (20.5-60.0); Mean Corpuscular HGB Conc 31.3 g/dL (29.9-35.2); Mean Corpuscular Hemoglobin 27.8 pg (25.9-34.0); Mean Corpuscular Volume 88.7 fL (80.0-94.0); Mean Platelet Volume 9.2 fL (9.5-13.5); Monocytes Absolute Auto 1.4 10^3/uL (0.3-0.8); Monocytes Percent Auto 13.7 % (1.7-12.0); Neutrophils Absolute Auto 6.1 10^3/uL (1.4-6.5); Neutrophils Percent Auto 61.2 % (43.0-75.0); Platelet Count 275 10^3/uL (150-450); Red Blood Count 4.79 10^6/uL (4.70-6.10); Red Cell Distribution Width 16.8 % (11.0-15.0)
[2023-06-30 16:37] LABS: Erythrocyte Sedimentation Rate 91 mm/hr (<=20); Lactate/Lactic Acid 2.1 mmol/L (0.4-2.0)
[2023-06-30 16:39] LABS: INR 1.11; Prothrombin Time 11.6 sec (9.0-11.6)
[2023-06-30 16:45] LABS: Alanine Aminotransferase 19 U/L (16-63); Albumin Globulin Ratio 0.6; Albumin Level 2.4 g/dL (3.4-5.0); Alkaline Phosphatase 87 U/L (46-116); Anion Gap 11.4; Aspartate Amino Transferase 15 U/L (15-37); BUN Creatinine Ratio 15.1; Bilirubin Total 0.5 mg/dL (0.2-1.0); C Reactive Protein 1.18 mg/dL (<=0.50); Calcium 8.8 mg/dL (8.5-10.1); Carbon Dioxide 27.3 mmol/L (21.0-32.0); Chloride 103 mmol/L (98-107); Estimated GFR (African America >60 (>=60); Estimated GFR (Non-African Ame >60 (>=60); Globulin 3.9 g/dL; Glucose 150 mg/dL (74-106); Potassium 3.7 mmol/L (3.5-5.1); Sodium 138 mmol/L (136-145); Total Protein 6.3 g/dL (6.4-8.2); Troponin I High Sensitivity 6.9 pg/mL (4.0-76.1)
[2023-06-30 17:50] VITALS: BP 125/83; PULSE 71; TEMP 36.8; O2SAT 94
== END 2023-06-30 18:00 | disposition home or self-care (01) ==
PROVIDERS: Physician Assistant; Emergency Provider Emergency Medicine; PCP Family Medicine
DX: R60.9 Edema, unspecified (principal); I48.91 Unspecified atrial fibrillation
CPT/HCPCS: 36415; 71045; 80053; 83605; 83880; 84484; 85025; 85610; 85652; 86140; 87040; 93005; 99285

== ENCOUNTER 2023-10-12 11:21 | Outpatient (OUT) | payer MEDICARE, SELFPAY ==
--- OUTSIDE RECORDS SUMMARY | 2023-10-12 11:34 | XMS_ITS | CCD ---
Author Organization [facility] Inform ion Partnership [facility] Care Team Providers Care Manager Bar Name Role Phone Ace Abbott Unavailable Unavailable [...] Provider Unavailable LIANG Wing Other Provider Unavailable LIANG Jerez Other Provider Unavailable MD Mary Carmen Dickinson Other Provider MD Heriberto De Anda Other Provider Justina, CLUB WAITER/WAITRESS Philly Valenzuela Other Provider DO Chioma Portillo Other Provider [...] Provider MD Julio Shoemaker Other Provider Nilton [employer] FITTER-Lidia White Other Provider [phone] MD Thai Boyd E Other Provider MD Serge Gonsalez Other Provider MD Aris Cantu Other Provider Unavailable MD Ayah Gaitan Other Provider Unavailable MD Markus Bailey Other Provider MD Dalton Whelan Other Provider DO Marjan Tyson Other Provider MD Rogers Kennedy Other Provider DO David Rizzo R Other Provider DO Luiz Slaughter Other Provider CASIMIRO Marie Other Provider Sharri, RN Zunilda Other Provider Unavailable MD Ace Abbott Primary Care Provider DO Soham Cash Jr Attending Provider MD Delvin Rodriguez Attending Provider MD Ace Abbott Primary Care Provider DO Soham Cash Jr Attending Provider Ace Abbott Primary Care Physician MD Ace Abbott Primary Care Provider [phone] DO Soham Cash Jr Attending Provider SCAR ., DR BELLO Procedure Practitioner Unavail able HOY ., DR [...] Admitting Unavailable MISC, DR KRAUS Consulting Unavailable STEPANIC, DR CAPONE Primary Care Unavailable MISC, DR [...] Unavailable RODRIGUEZ, DR DELVIN Colon Consulting Unavailable HOY ., DR BELLO Consulting Unavailable HOY ., DR BELLO Primary Care Unavailable VALENCIA ., MR ANNA Attending Unavailable VALENCIA ., MR ANNA Admitting Unavailable MD Ace Abbott Primary Care Provider [phone] MD Horace Palafox Admit Provider MD Horace [...] Other Provider MD Mikael Bush Other Provider [phone] MD Debo Argueta Other Provider Pb, ANP- Jackelyn Other Provider MD Pramod Paulson Other Provider MD Chuck Tarango Other Provider MD Darren Woods Other Provider MD Clover Banerjee Other Provider DO Maycol Cristina Other Provider [phone] MD Esme Turpin Other Provider MD Julio Shoemaker Other Provider MARIBELL Callaway-C Farhana White Other Provider [phone] MD Thai Boyd Other Provider MD Serge Gonsalez Other Provider MD Markus Bailey Other Provider DO Marjan Tyson Other Provider DO David Rizzo Other Provider DO Luiz Slaughter Other Provider CASIMIRO Marie Other Provider DO Constantino Salas Other Provider MD Anshu Jennings Other Provider CASIMIRO Lozada Other Provider [phone] LIANG Harrell Other Provider Unavailable DO Anna Navarro Emergency Provider MD Anshu Martinez Admit Provider [phone] MD Anshu Jennings Attending Provider [phone] DO Anna Navarro Emergency Provider MD Anshu [...] Provider MD Ranjeet Lozano Other Provider Romelia [facility]- Sherley Villa Other Provider MD Erin Ordonez Other Provider MD Jigar Church Other Provider Soham Cash Jr Admitting Unavailable Soham Cash Jr Attending Unavailable Ace Abbott Primary Care Unavailable Delvin Rodriguez Consulting Unavailable Daromar, Obaydah M Attending Unavailable Daromar, Obaydah M Admitting Unavailable Hoy, Ace M Primary Care Unavailable Brisa Morales Consulting Unavailable Yasmine Ruelas Consulting Unavailable Rubén Graham Consulting Unavailable Parminder Arredondo Consulting Unavail able Pino Dunbar Consulting Unavailable Harsh Wren Consulting Unavailab Yazmin Culver Consulting Unavailable Milana Kilgore Consulting Unavailable Nat Arce Consulting Unavailab Ranjeet Ricks Consulting Unavailable Sherley León Consulting Unavailable Erin Ordonez Consulting Unavailable Asasharon, Imad Consulting Unavailable Horace Palafox Admitting Unavailable Horace Palafox Attending Unavailable Howardy, Ace M Primary Care Unavailable Mariana Castro Consulting [...] Callaway Consulting Unavailable Thai Boyd Consulting Unavailab mary Gonsalez, Serge Consulting Unavailable Markus Bailey Consulting Unavailable Marjan Tyson Consulting Unavailable David Rizzo Consulting Unavailable Luiz Slaughter Consulting Unavailable Marguerite Marie Consulting Unavailable Constantino aSlas Consulting Unavailable Daromar, Obaydah M Consulting Unavailable Bethanie Lozada Consulting Unavailable Zunilda Harrell Consulting Unavailable Soham Cash Jr Attending Unavailable Shailesh Talamantes, Soham Admitting Unavailable Hoy, Aec M Primary Care Unavailable Soham Cash Jr Attending Unavailable Shailesh Talamantes, Soham Admitting Unavailable Hoy, Ace M Primary Care Unavailable Ace Abbott Primary Care Unavailable Rodriguez, Delvin Admitting Unavailable Delvin Rodriguez Attending Unavailable Soahm Cash Jr Admitting Unavailable Soham Cash Jr Attending Unavailable Ace Abbott Primary Care Unavailable Manjinder, Dr. Rodriguez Referring Unavaila ble Traboulssi, Dr. Rodriguez Attending Unavaila ble Hoy, Dr. Ace Severino Primary Care Unavail able Traboulssi, Dr. Rodriguez Attending Unavaila ble Hoy, Dr. Ace Severino Primary Care Unavail able Traboulssi, Dr. Rodriguez Attending Unavaila ble Hoy, Dr. Ace Severino Primary Care Unavail able Traboulericai, Dr. Rodriguez Attending Unavaila ble Traboulssi, Dr. Rodriguez Referring Unavaila ble Hoy, Dr. Ace Severino Primary Care Unavail able Traboulericai, Dr. Rodriguez Attending Unavaila ble Traboulssi, Dr. Rodriguez Referring Unavaila ble Hoy, Dr. Ace Severino Primary Care Unavail able Antoine MEAD Attending Unavailable BOSTON, Antoine Morton Attending Unavailable Antoine MEAD Attending Unavailable Ace Abbott Referring Unavailable Ace Abbott MD Primary Care Provider [phone] Ace Abbott MD Primary Care Provider [phone] SABRA PRATT Attending Unavailable ACE ABBOTT Referring Unavailable ACE ABBOTT Primary Care Unavailable MARIELLE, ABBEY Attending Unavailable MARIELLE, ABBEY Referring Unavailable MARIELLE, ABBEY Referring Unavailable MARIELLE, ABBEY Attending Unavailable PINO DUNBAR Attending Unavailable ACE ABBOTT Primary Care Unavailable SIVAN PRICE Attending Unavailable Allergies Allergy Classification Reported Allergen(s) Allergy Type Date of Onset Reaction(s) Facility (7 sources) Mirtazapine; Translations: [mirtazapine] Drug Allergy 06-06-19 serotonin syndrome [facility] (5 sources) Sulfonamides (Antibiotic); Translations: [Sulfa (Sulfonamide Antibiotics)] Allergy to substance 12-08-19 Rash [facility] (5 sources) Sulfamethoxazole / Trimethoprim; Translations: [sulfamethoxazole-tr imethoprim] Drug Allergy 12-31-19 Eruption of skin (disorder), Hives, Rash, Shortness of breath [facility] (1 source) Sulfamethoxazole / Trimethoprim Drug Allergy 10-07-19 [facility] (3 sources) Sulfamethoxazole / Trimethoprim; Translations: [...] tablet Discontinued 1 TAB PO Q6H 28 7 May 22, 2021 June 10, 2021 1:13pm [...] 2021 4:08pm take 1 capsule by mo ut in the morning cholecalciferol, vitamin D3, 2,000 units capsule Take 1 capsule (2,000 Units total) by mouth in the morning. 0 Active take 1 capsule by mo uth once daily cholecalciferol (Vitamin D-3) 50,000 unit capsule Take 1 capsule (50,000 Units) by mouth once daily. 0 Active take 1 capsule by [facility] once daily RA Vitamin D-3 50 MCG (1999) Oral Capsule TAKE 1 CAPSULE Daily Quantity: 0 Refills: 0 Ordered: 07-Jun-2022 DO Active Dextromethorphan (1 source) Uncompetitive M-mgufxt-W-aspartate Receptor Antagonist, Sigma-1 Agonist Start: 07-13-2021 take [...] by mouth once daily in the morning L.Acidop,Carlos,Lac,Rha-B.Lac,Ajs (Advanced Probiotic) 625 mg (10 billion cell) [...] Start: 06-10-2021 take 2 tablets by mo ut once daily Sennosides (Senna Lax) 8.6 mg [...] 07, 2021 12:00am April 02, 2022 4:16pm Octbsowu-Fqdhcvbpo-B alcium Hmb (Nik) 7-7-1.5 gram Powder In Packet (4 sources) Start: 12-07-2021 End: 04-02-2022 Eylsvykc-Dguhahmib-V alcium Hmb (Nik) 7-7-1.5 gram Powder In [...] 0 Ordered: 07-Jun-2022 DO Active bifidobacterium animalis [id number] unt / lactobacillus acidophilus [id number] unt oral capsule (1 source) Probiotic CAPS [...] 20 mg/ml oral solution (11 sources) Uncompetitive C-aacnzj-S-aspartat e Receptor Antagonist, Sigma-1 Agonist Start: 05-05-2021 [...] 1 tablet by mouth once daily Glucosamine 4ral-Nne-Ctolmpoae Discontinued 1 TAB PO Daily July 20, 2020 6:22pm May 05, 2021 4:09pm Start: 07-20-2020 End: 05-05-2021 take 1 tablet by mouth once daily Glucosamine 1hyn-Lmt-Qbvrtednh Discontinued 1 TAB PO Daily July 19, 2020 11:00pm May 05, 2021 3:09pm Start: 07-20-2020 End: 05-05-2021 take 1 tablet by mouth once daily Glucosamine 2mst-Feq-Qodfdoybn Discontinued 1 TAB PO Daily July 20, [...] 02, 2022 1:00am May 25, 2022 7:29am [place] 3 CAPS (1 source) [place] 3 CAPS ADAMARIS E DIRECTED. Quantity: 0 Refills: 0 Ordered: 18-Feb-2021 DO Active [place] 8-Tio-Unf-Fish Oil (Fish Oil) 1,200 (144-216) mg Capsule (9 sources) Start: 07-20-2020 End: 05-05-2021 take 1 capsule by mouth once daily [place] 1-Qya-Eqd-Fish Oil (Fish Oil) 1,200 (144-216) mg Capsule Discontinued 1 CAP PO Daily July 20, 2020 6:22pm May 05, 2021 4:10pm Start: 07-20-2020 End: 05-05-2021 take 1 capsule by mouth once daily [place] 9-Xzl-Ujg-Fish Oil (Fish Oil) 1,200 (144-216) mg Capsule Discontinued 1 CAP PO Daily July 19, 2020 11:00pm May 05, 2021 3:10pm Start: 07-20-2020 End: 05-05-2021 take 1 capsule by mouth once daily [place] 5-Rhw-Qbi-Fish Oil (Fish Oil) 1,200 (144-216) mg Capsule [...] TAB PO DAILY@December 07, 2021 1:54pm sennosides, chcf 8.6 mg oral tablet (1 source) Senna [...] (2 sources) Glycopeptide Antibacterial Start: 04-02-19 End: 04-18-20 23 take 125 mg by mouth four [...] [Coronary atherosclerosis of unspecified type of vessel, [place] or graft] Onset: 08-04-2021 05-23-2021 Chronic Disorders [...] sources) Long-term current use of anticoagulant; Translations: [manager terminal (current) use of anticoagulants] 06-23-2021 Episodic Other aftercare (7 sources) longterm (current) use of anticoagulants; Translations: [Long-term (current) [...] Onset: 2 Episodic Other aftercare (1 source) manager terminal (current) use of aspirin; Translations: [BLEACHER SULFITE PULP CURRENT USE OF ASPIRIN] Onset: 2 Episodic Other aftercare (1 source) Other manager terminal (current) drug therapy; Translations: [OTH BLEACHER SULFITE PULP CURRENT DRUG THERAPY] Onset: 2 Episodic Other [...] FATHER TO CLOSEST ER AND CALL WITH PROGRESS//[facility]IOR [facility]IV[facility] Normal [facility] ECG 12 Leadon 02-16-2023 Normal sinus rhythm with first-degree AV block with normal QTc interval [facility] Work Phone: Follow-Upon 01-20-2023 Follow-Up [id number] Jon Pradhan sarahkaty Morton 1945 M Date Provider Department Center 01/20/2023 Christie-ABBEY ARVIZU MP ORTHO MPORTHO Family History Family history unknown: Yes Level of Service:83294 CO OFFICE/OUTPATIENT ESTABLISHED LOW MDM 20 MIN Reason for Visit and Comments: Follow-up [653025] Normal [facility] Patient Letter FTon 2022 Patient Letter [facility] (Inserted Image. Archana ble to display) September 06, 2022 [place] [address] : 1945 Dear Mr. Angella Pradhan, [facility] is glad to hear you had your surgery and are recovering at home. Please call the office once you are able to ambulate, so we can get you scheduled for the bladder function test (urodynamics) and Cystoscopy (scope of bladder). We wish you a quick recovery. Sincerely, [facility] option #3 Normal [facility] Alanine aminotransferase [En zymatic activity/volume] in Serum or PlasmaOrdered By: Anshu Jennings on 05-29-2022 ALT [Catalytic activity/Vol] 60 U/L 7-52 [facility] Albumin [Mass/volume] in Ser um or Plasma by Bromocresol green (BCG) dye binding methoOrdered By: Anshu Jennings on 05-29-2022 Albumin BCG dye [Mass/Vol] 2.6 g/dL 3.5-5.7 [facility] Alkaline phosphatase [Enzyma tic activity/volume] in Serum or PlasmaOrdered By: Anshu Jennings on 05-29-2022 ALP [Catalytic activity/Vol] 179 U/L 34-104 [facility] Aspartate aminotransferase [ Enzymatic activity/volume] in Serum or PlasmaOrdered By: Anshu Beardr on 05-29-2022 AST [Catalytic activity/Vol] 32 U/L 13-39 [facility] Basophils Auto (Bld) [#/Vol] Ordered By: Obtresa Castroomar on 05-29-2022 Basophils (Bld) [#/Vol] 0.0 10*3/uL 0.0-0.2 [facility] Basophils/100 WBC Auto (Bld) Ordered By: Obamiradakenji Castroomar on 05-29-2022 Basophils/100 WBC (Bld) 0.3 % . [facility] Bilirubin.total [Mass/volume ] in Serum or PlasmaOrdered By: Obtresa Beardr on 05-29-2022 Bilirubin [Mass/Vol] 2.3 mg/dL 0.3-1.[address] [facility] Comment on above: Samples from patient s who have taken Naproxen have shown spurious elevation in Total Bilirubin levels. A metabolite of Naproxen, O-desmethylnaproxen, has been shown to interfere with the Gisella-Brandyn method for measuring Total Bilirubin. Calcium [Mass/volume] in Ser um or PlasmaOrdered By: Anshu Jennings on 05-29-2022 Calcium [Mass/Vol] 7.7 mg/dL 8.6-10.3 [facility] Carbon dioxide, total [Moles /volume] in Serum or PlasmaOrdered By: Anshu Castroomar on 05-29-2022 CO2 [Moles/Vol] 25.6 mmol/L 21.0-31.0 [facility] Chloride [Moles/volume] in S marysol or PlasmaOrdered By: Obamiradakenji Castroomar on 05-29-2022 Chloride [Moles/Vol] 102 mmol/L 98-[address] [facility] Complete Blood Count Auto Di ffon 05-29-2022 Basophils (Bld) [#/Vol] 0.0 10*3/uL Normal 0.0-0.2 [facility] Comment on above: Result Comment: PERF ORMED BY: [facility] [address] [place] [address] PATHOLOGIST RETORT ENGINEER CHELSY BHAGAT M.D. Performed By: #### A ERC #### [facility] [address] [place] [address] [place] Basophils/100 WBC (Bld) 0.3 % Normal . [facility] Comment on above: Performed By: #### A ERC #### [facility] [address] [place] [address] [place] Eosinophils (Bld) [#/Vol] 0.2 10*3/uL Normal 0.0-0.45 [facility] Comment on above: Performed By: #### A ERC #### [address] Eosinophils/100 WBC (Bld) 2.8 % Normal . [facility] Comment on above: Performed By: #### A ERC #### [address] Erythrocyte distribution width (RBC) [Ratio] 14.4 % Normal 12.0-14.8 [facility] Comment on above: Performed By: #### A ERC #### [address] Hematocrit (Bld) [Volume fraction] 37.8 % Low 38.8-50.0 [facility] Comment on above: Performed By: #### A ERC #### [address] Hemoglobin (Bld) [Mass/Vol] 12.5 g/dL Low 13.0-17.0 [facility] Comment on above: Performed By: #### A ERC #### [place] [address] [place] Lymphocytes (Bld) [#/Vol] 0.8 10*3/uL Low 1.00-4.8 [facility] Comment on above: Performed By: #### A ERC #### [address] Lymphocytes/100 WBC (Bld) 11.0 % Normal . [facility] Comment on above: Performed By: #### A ERC #### [facility] [address] MCH (RBC) [Entitic mass] 29.1 pg Normal 27.5-35.2 [facility] Comment on above: Performed By: #### A ERC #### [facility] [address] MCV (RBC) [Entitic vol] 88.1 fL Normal 83.5-101 [facility] Comment on above: Performed By: #### A ERC #### [facility] [address] Mean Corpuscular HGB Conc 33.0 g/dL Normal 32.5-35.6 [facility] Comment on above: Performed By: #### A ERC #### [address] Monocytes (Bld) [#/Vol] 1.0 10*3/uL High 0.0-0.8 [facility] Comment on above: Performed By: #### A ERC #### [address] Monocytes/100 WBC (Bld) 13.1 % Normal . [facility] Comment on above: Performed By: #### A ERC #### [address] Neutrophils (Bld) [#/Vol] 5.6 10*3/uL Normal 1.8-7.7 [facility] Comment on above: Performed By: #### A ERC #### [address] Neutrophils/100 WBC (Bld) 72.8 % Normal . [facility] Comment on above: Performed By: #### A ERC #### [address] NRBC% 0.2 /100{WBC} Normal 0-0.5 [facility] Comment on above: Performed By: #### A ERC #### [address] Platelet mean volume (Bld) [Entitic vol] 9.0 fL Normal 6.6-10.1 [facility] Comment on above: Performed By: #### A ERC #### [address] Platelets (Bld) [#/Vol] 154 10*3/uL Normal 150-450 [facility] Comment on above: Performed By: #### A ERC #### [address] RBC (Bld) [#/Vol] 4.29 10*6/uL Normal 3.90-5.[address] [facility] Comment on above: Performed By: #### A ERC #### [address] WBC (Bld) [#/Vol] 7.7 10*3/uL Normal 4.1-10.5 [facility] Comment on above: Performed By: #### A ERC #### [address] Comprehensive Metabolic Pane jas 05-29-2022 Albumin [Mass/Vol] 2.6 g/dL Low 3.5-5.7 [facility] Comment on above: Performed By: #### A ERC #### [address] Albumin/Globulin [Mass ratio] 0.9 {ratio} Normal [facility] Comment on above: Performed By: #### A ERC #### [address] ALP [Catalytic activity/Vol] 179 U/L High 34-104 [facility] Comment on above: Performed By: #### A ERC #### [address] ALT [Catalytic activity/Vol] 60 U/L High 7-52 [facility] Comment on above: Performed By: #### A ERC #### [address] Anion gap [Moles/Vol] 10.8 mmol/L Normal 6.0-15.0 [facility] Comment on above: Performed By: #### A ERC #### [facility] [address] AST [Catalytic activity/Vol] 32 U/L Normal 13-39 [facility] Comment on above: Performed By: #### A ERC #### [facility] [address] Bilirubin [Mass/Vol] 2.3 mg/dL High 0.3-1.[address] [facility] Comment on above: Result Comment: Samp les from patients who have taken Naproxen have shown spurious elevation in Total Bilirubin levels. A metabolite of Naproxen, O-desmethylnaproxen, has been shown to interfere with the Jendrassik-Grof method for measuring Total Bilirubin. Performed By: #### A ERC #### [address] Calcium [Mass/Vol] 7.7 mg/dL Low 8.6-10.3 [facility] Comment on above: Performed By: #### A ERC #### [facility] [address] [place] [address] [place] Chloride [Moles/Vol] 102 mmol/L Normal 98-[address] [facility] Comment on above: Performed By: #### A ERC #### [address] CO2 [Moles/Vol] 25.6 mmol/L Normal 21.0-31.0 [facility] Comment on above: Performed By: #### A ERC #### [facility] [address] Creatinine [Mass/Vol] 0.59 mg/dL Low 0.70-1.30 [facility] Comment on above: Performed By: #### A ERC #### [facility] [address] Creatinine Clr Calc Pharmacy 74.62 Normal [facility] Comment on above: Result Comment: PERF ORMED BY: [place] [address] PATHOLOGIST RETORT ENGINEER CHELSY BHAGAT M.D. Performed By: #### A ERC #### [place] [address] [place] GFR/1.73 sq M.predicted MDRD (S/P/Bld) [Vol rate/Area] mL/min/{1.73_m2} [facility] Comment on above: Performed By: #### A ERC #### [address] Globulin (S) [Mass/Vol] 2.8 g/dL Normal [facility] Comment on above: Performed By: #### A ERC #### [address] Glucose [Mass/Vol] 86 mg/dL Normal 70-100 [facility] Comment on above: Result Comment: [place] Glucose Reference Range is dependent on time and content of last meal. Glucose of more than 200 mg/dL in a nonstressed, ambulatory subject supports the diagnosis of Diabetes Mellitus. ADA recommended reference range Performed By: #### A ERC #### [place] [address] [place] Potassium [Moles/Vol] 3.4 mmol/L Low 3.5-5.1 [facility] Comment on above: Performed By: #### A ERC #### [address] Protein [Mass/Vol] 5.4 g/dL Low 6.4-8.9 [facility] Comment on above: Performed By: #### A ERC #### [address] Sodium [Moles/Vol] 135 mmol/L Low 136-145 [facility] Comment on above: Performed By: #### A ERC #### [address] Urea nitrogen [Mass/Vol] 10 mg/dL Normal 7-25 [facility] Comment on above: Performed By: #### A ERC #### [place] [id number] [facility] Creatinine [Mass/volume] in Serum or PlasmaOrdered By: Anshu Jennings on 05-29-2022 Creatinine [Mass/Vol] 0.59 mg/dL 0.70-1.30 [facility] ECG 12 lead ECGon 05-29-2022 ECG 12 lead ECG [facility] [place] [address] [place] [address] Electrocardiograph Report Signed Patient: Angella Pradhan MR#: [id number] : 1945 Acct:[id number] Age/Sex: 76 / M ADM Date: 05/26/22 Loc: Room: [address] [place] [address] Type: ADM IN Attending Dr: Anshu Jennings [...] Pino Dunbar MD 0 05/29/22 1050 Normal [facility] Eosinophils Auto (Bld) [#/Vo l]Ordered By: Anshu Jennings on 05-29-2022 Eosinophils (Bld) [#/Vol] 0.2 10*3/uL 0.0-0.45 [facility] Eosinophils/100 WBC Auto (Bl d)Ordered By: Anshu Jennings on 05-29-2022 Eosinophils/100 WBC (Bld) 2.8 % . [facility] Erythrocyte distribution wid th Auto (RBC) [Ratio]Ordered By: Anshu Jennings on 05-29-2022 Erythrocyte distribution width (RBC) [Ratio] 14.4 % 12.0-14.8 [facility] Globulin Calc (S) [Mass/Vol] Ordered By: Anshu Jennings on 05-29-2022 Globulin (S) [Mass/Vol] 2.8 g/dL [facility] Glucose [Mass/volume] in Ser um or PlasmaOrdered By: Anshu Jennings on 05-29-2022 Glucose [Mass/Vol] 86 mg/dL 70-100 [facility] Comment on above: ADA recommended refe rence rangeRandom Glucose Reference Range is dependent on time and content of last meal. Glucose of more than 200 mg/dL in a nonstressed, ambulatory subject supports the diagnosis of Diabetes Mellitus. Hematocrit Auto (Bld) [Volum e fraction]Ordered By: Anshu Jennings on 05-29-2022 Hematocrit (Bld) [Volume fraction] 37.8 % 38.8-50.0 [facility] Hemoglobin [Mass/volume] in BloodOrdered By: Anshu Jennings on 05-29-2022 Hemoglobin (Bld) [Mass/Vol] 12.5 g/dL 13.0-17.0 [facility] Leukocytes [#/volume] correc leslie for nucleated erythrocytes in Blood by Automated counOrdered By: Anshu Jennings on 05-29-2022 WBC corrected for nucl RBC Auto (Bld) [#/Vol] 7.7 10*3/uL 4.1-10.5 [facility] Lymphocytes Auto (Bld) [#/Vo l]Ordered By: Anshu Jennings on 05-29-2022 Lymphocytes (Bld) [#/Vol] 0.8 10*3/uL 1.00-4.8 [facility] Lymphocytes/100 WBC Auto (Bl d)Ordered By: Anshu Jennings on 05-29-2022 Lymphocytes/100 WBC (Bld) 11.0 % . [facility] MCH Auto (RBC) [Entitic mass ]Ordered By: Anshu Castroomar on 05-29-2022 MCH (RBC) [Entitic mass] 29.1 pg 27.5-35.2 [facility] MCHC Auto (RBC) [Mass/Vol]Or dered By: Obamiradakenji Castroomar on 05-29-2022 MCHC (RBC) [Mass/Vol] 33.0 g/dL 32.5-35.6 [facility] MCV Auto (RBC) [Entitic vol] Ordered By: Obamiradakenji Castroomar on 05-29-2022 MCV (RBC) [Entitic vol] 88.1 fL 83.5-101 [facility] Monocytes Auto (Bld) [#/Vol] Ordered By: Obtresa Castroomar on 05-29-2022 Monocytes (Bld) [#/Vol] 1.0 10*3/uL 0.0-0.8 [facility] Monocytes/100 WBC Auto (Bld) Ordered By: Anshu Castroomar on 05-29-2022 Monocytes/100 WBC (Bld) 13.1 % . [facility] Neutrophils Auto (Bld) [#/Vo l]Ordered By: Obtresa Castroomar on 05-29-2022 Neutrophils (Bld) [#/Vol] 5.6 10*3/uL 1.8-7.7 [facility] Neutrophils/100 WBC Auto (Bl d)Ordered By: Anshu Castroomar on 05-29-2022 Neutrophils/100 WBC (Bld) 72.8 % . [facility] No Panel InformationOrdered By: Anshu Jennings on 05-29-2022 Estimated GFR (CKD-EPI) > 60.0 mL/Min [facility] Creatinine Clearance (Chem 74.62 [facility] Nucleated erythrocytes [Pres ence] in Blood by Automated countOrdered By: Anshu Beardr on 05-29-2022 Nucleated RBC Auto Ql (Bld) 0.2 /100{WBC} 0-0.5 [facility] Platelet mean volume Auto (B ld) [Entitic vol]Ordered By: Anshu Castroomar on 05-29-2022 Platelet mean volume (Bld) [Entitic vol] 9.0 fL 6.6-10.1 [facility] Platelets Auto (Bld) [#/Vol] Ordered By: Obaydah Daromar on 05-29-2022 Platelets (Bld) [#/Vol] 154 10*3/uL 150-450 [facility] Potassium [Moles/volume] in Serum or PlasmaOrdered By: Obaydah Daromar on 05-29-2022 Potassium [Moles/Vol] 3.4 mmol/L 3.5-5.1 [facility] Protein [Mass/volume] in Ser um or PlasmaOrdered By: Obaydah Daromar on 05-29-2022 Protein [Mass/Vol] 5.4 g/dL 6.4-8.9 [facility] RBC Auto (Bld) [#/Vol]Ordere d By: Obaydah Daromar on 05-29-2022 RBC (Bld) [#/Vol] 4.29 10*6/uL 3.90-5.[address] [facility] Serum or plasma albumin/glob ulin mass ratioOrdered By: Obaydah Daromar on 05-29-2022 Albumin/Globulin [Mass ratio] 0.9 {ratio} [facility] Serum or plasma anion gap de terminationOrdered By: Obaydah Daromar on 05-29-2022 Anion gap [Moles/Vol] 10.8 mmol/L 6.0-15.0 [facility] Sodium [Moles/volume] in Ser um or PlasmaOrdered By: Obaydah Daromar on 05-29-2022 Sodium [Moles/Vol] 135 mmol/L 136-145 [facility] Urea nitrogen [Mass/volume] in Serum or PlasmaOrdered By: Obaydah Daromar on 05-29-2022 Urea nitrogen [Mass/Vol] 10 mg/dL 7-25 [facility] WBC Auto (Bld) [#/Vol]Ordere d By: Obaydah Daromar on 05-29-2022 WBC (Bld) [#/Vol] 7.7 10*3/uL 4.1-10.5 [facility] Bilirubin,Directon 3 Bilirubin.indirect [Mass/Vol] 2.90 mg/dL High 0.03-0.18 [facility] Comment on above: Result Comment: PERF ORMED BY: [place] [address] PATHOLOGIST RETORT ENGINEER CHELSY BHAGAT M.D. Performed By: #### A ERC #### [address] Bilirubin.direct [Mass/volum e] in Serum or PlasmaOrdered By: Anshu Jennings on 05-28-2022 Bilirubin.direct [Mass/Vol] 2.90 mg/dL 0.03-0.18 [facility] Complete Blood Count Auto Di ffon 05-28-2022 Basophils (Bld) [#/Vol] 0.0 10*3/uL Normal 0.0-0.2 [facility] Comment on above: Result Comment: PERF ORMED BY: [place] [address] PATHOLOGIST RETORT ENGINEER CHELSY BHAGAT M.D. Performed By: #### A ERC #### [address] Basophils/100 WBC (Bld) 0.5 % Normal . [facility] Comment on above: Performed By: #### A ERC #### [place] [address] [place] Eosinophils (Bld) [#/Vol] 0.0 10*3/uL Normal 0.0-0.45 [facility] Comment on above: Performed By: #### A ERC #### [place] [address] [place] Eosinophils/100 WBC (Bld) 0.5 % Normal . [facility] Comment on above: Performed By: #### A ERC #### [address] Erythrocyte distribution width (RBC) [Ratio] 14.7 % Normal 12.0-14.8 [facility] Comment on above: Performed By: #### A ERC #### [facility] [address] Hematocrit (Bld) [Volume fraction] 39.1 % Normal 38.8-50.0 [facility] Comment on above: Performed By: #### A ERC #### [facility] [address] Hemoglobin (Bld) [Mass/Vol] 12.9 g/dL Low 13.0-17.0 [facility] Comment on above: Performed By: #### A ERC #### [address] Lymphocytes (Bld) [#/Vol] 0.7 10*3/uL Low 1.00-4.8 [facility] Comment on above: Performed By: #### A ERC #### [address] Lymphocytes/100 WBC (Bld) 8.0 % Normal . [facility] Comment on above: Performed By: #### A ERC #### [address] MCH (RBC) [Entitic mass] 29.3 pg Normal 27.5-35.2 [facility] Comment on above: Performed By: #### A ERC #### [address] MCV (RBC) [Entitic vol] 88.4 fL Normal 83.5-101 [facility] Comment on above: Performed By: #### A ERC #### [address] Mean Corpuscular HGB Conc 33.1 g/dL Normal 32.5-35.6 [facility] Comment on above: Performed By: #### A ERC #### [address] Monocytes (Bld) [#/Vol] 1.3 10*3/uL High 0.0-0.8 [facility] Comment on above: Performed By: #### A ERC #### [address] [place] [address] [place] Monocytes/100 WBC (Bld) 13.8 % Normal . [facility] Comment on above: Performed By: #### A ERC #### [address] Neutrophils (Bld) [#/Vol] 7.2 10*3/uL Normal 1.8-7.7 [facility] Comment on above: Performed By: #### A ERC #### [address] Neutrophils/100 WBC (Bld) 77.2 % Normal . [facility] Comment on above: Performed By: #### A ERC #### [address] NRBC% 0.1 /100{WBC} Normal 0-0.5 [facility] Comment on above: Performed By: #### A ERC #### [address] Platelet mean volume (Bld) [Entitic vol] 8.6 fL Normal 6.6-10.1 [facility] Comment on above: Performed By: #### A ERC #### [address] Platelets (Bld) [#/Vol] 166 10*3/uL Normal 150-450 [facility] Comment on above: Performed By: #### A ERC #### [address] RBC (Bld) [#/Vol] 4.42 10*6/uL Normal 3.90-5.[address] [facility] Comment on above: Performed By: #### A ERC #### [address] WBC (Bld) [#/Vol] 9.3 10*3/uL Normal 4.1-10.5 [facility] Comment on above: Performed By: #### A ERC #### [address] Comprehensive Metabolic Pane jas 04-21-2023 Albumin [Mass/Vol] 2.7 g/dL Low 3.5-5.7 [facility] Comment on above: Performed By: #### A ERC #### [facility] [address] Albumin/Globulin [Mass ratio] 1.0 {ratio} Normal [facility] Comment on above: Performed By: #### A ERC #### [facility] [address] ALP [Catalytic activity/Vol] 171 U/L High 34-104 [facility] Comment on above: Performed By: #### A ERC #### [facility] [address] ALT [Catalytic activity/Vol] 89 U/L High 7-52 [facility] Comment on above: Performed By: #### A ERC #### [address] Anion gap [Moles/Vol] 11.5 mmol/L Normal 6.0-15.0 [facility] Comment on above: Performed By: #### A ERC #### [address] AST [Catalytic activity/Vol] 47 U/L High 13-39 [facility] Comment on above: Performed By: #### A ERC #### [address] Bilirubin [Mass/Vol] 4.2 mg/dL High 0.3-1.[address] [facility] Comment on above: Result Comment: Samp les from patients who have taken Naproxen have shown spurious elevation in Total Bilirubin levels. A metabolite of Naproxen, O-desmethylnaproxen, has been shown to interfere with the Jendrassik-Grof method for measuring Total Bilirubin. Performed By: #### A ERC #### [address] Calcium [Mass/Vol] 7.8 mg/dL Low 8.6-10.3 [facility] Comment on above: Performed By: #### A ERC #### [facility] [address] Chloride [Moles/Vol] 102 mmol/L Normal 98-[address] [facility] Comment on above: Performed By: #### A ERC #### [facility] [address] CO2 [Moles/Vol] 25.1 mmol/L Normal 21.0-31.0 [facility] Comment on above: Performed By: #### A ERC #### [facility] [address] Creatinine [Mass/Vol] 0.65 mg/dL Low 0.70-1.30 [facility] Comment on above: Performed By: #### A ERC #### [address] Creatinine Clr Calc Pharmacy 74.79 [facility] Comment on above: Performed By: #### A ERC #### [address] GFR/1.73 sq M.predicted MDRD (S/P/Bld) [Vol rate/Area] mL/min/{1.73_m2} [facility] Comment on above: Performed By: #### A ERC #### [address] Globulin (S) [Mass/Vol] 2.8 g/dL [facility] Comment on above: Performed By: #### A ERC #### [address] Glucose [Mass/Vol] 102 mg/dL High 70-100 [facility] Comment on above: Result Comment: [facility] Glucose Reference Range is dependent on time and content of last meal. Glucose of more than 200 mg/dL in a nonstressed, ambulatory subject supports the diagnosis of Diabetes Mellitus. ADA recommended reference range Performed By: #### A ERC #### [address] Potassium [Moles/Vol] 3.6 mmol/L Normal 3.5-5.1 [facility] Comment on above: Performed By: #### A ERC #### [facility] [address] Protein [Mass/Vol] 5.5 g/dL Low 6.4-8.9 [facility] Comment on above: Performed By: #### A ERC #### [facility] [address] Sodium [Moles/Vol] 135 mmol/L Low 136-145 [facility] Comment on above: Performed By: #### A ERC #### [facility] [address] Urea nitrogen [Mass/Vol] 10 mg/dL Normal 7-25 [facility] Comment on above: Performed By: #### A ERC #### [facility] [address] [place] [address] ECG 12 lead ECGon 05-28-2022 ECG 12 lead ECG [facility] [place] [address] [place] [address] Electrocardiograph Report Signed Patient: Angella Pradhan MR#: [id number] : 1945 Acct:[id number] Age/Sex: 76 / M ADM Date: 05/26/22 Loc: Room: [address] [place] [address] Type: ADM IN Attending Dr: Anshu Jennings [...] Pino Dunbar MD 0 05/29/22 0003 Normal [facility] MR MRCPon 05-28-2022 MR MRCP [facility] [place] [address] [place], [place] [id number] MRI Report Signed Patient: Angella Pradhan MR#: [id number] : 1945 Acct:[id number] Age/Sex: 76 / M ADM Date: 05/26/22 Loc: 3T Room: [address] [place] [address] Type: ADM IN Attending Dr: Anshu Jennings [...] RECOMMENDED. Impression dictated by: Horace Stark Jr., Amalia05/28/2022 11:42 AM Dictation Location: [place] [address] Transcribed By: [facility] 05/28/22 1142 Dictated By: Horace Stark Jr, DO 05/28/22 1055 Signed By: 05/28/22 1142 Normal [facility] Bilirubin,Directon 3 Bilirubin.indirect [Mass/Vol] 2.30 mg/dL High 0.03-0.18 [facility] Comment on above: Result Comment: Hemo lysis is present at a level that could interfere with the result. PERFORMED BY: [place] [address] PATHOLOGIST RETORT ENGINEER CHELSY BHAGAT M.D. Performed By: #### C OVID-19 BECKY, SOFIANEG #### [facility] [address] [place] [address] Comprehensive Metabolic Pane jas 05-27-2022 Albumin [Mass/Vol] 3.0 g/dL Low 3.5-5.7 [facility] Comment on above: Performed By: #### C OVID-19 BECKY, SOFIANEG #### [address] Albumin/Globulin [Mass ratio] 1.0 {ratio} Normal [facility] Comment on above: Performed By: #### C OVID-19 BECKY, SOFIANEG #### [facility] [address] [place] [address] [place] ALP [Catalytic activity/Vol] 155 U/L High 34-104 [facility] Comment on above: Performed By: #### C OVID-19 BECKY, SOFIANEG #### [facility] [address] [place] [address] [place] ALT [Catalytic activity/Vol] 144 U/L High 7-52 [facility] Comment on above: Performed By: #### C OVID-19 BECKY, SOFIANEG #### [facility] [address] [place], [place] [id number] [facility] Anion gap [Moles/Vol] 10.3 mmol/L Normal 6.0-15.0 [facility] Comment on above: Performed By: #### C OVID-19 BECKY SOFIANEG #### [facility] [address] [place] [id number] [facility] AST [Catalytic activity/Vol] 82 U/L High 13-39 [facility] Comment on above: Performed By: #### C OVID-19 BECKY SOFIANEG #### [facility] [address] Bilirubin [Mass/Vol] 3.8 mg/dL High 0.3-1.[address] [facility] Comment on above: Result Comment: Samp les from patients who have taken Naproxen have shown spurious elevation in Total Bilirubin levels. A metabolite of Naproxen, O-desmethylnaproxen, has been shown to interfere with the Jendrassik-Grof method for measuring Total Bilirubin. Performed By: #### C OVID-19 BECKY SOFIANEG #### [facility] [address] Calcium [Mass/Vol] 8.2 mg/dL Low 8.6-10.3 [facility] Comment on above: Performed By: #### C OVID-19 BECKY, SOFIANEG #### [facility] [address] [place] [id number] [place] Chloride [Moles/Vol] 102 mmol/L Normal 98-[address] [facility] Comment on above: Performed By: #### C OVID-19 BECKY, SOFIANEG #### [facility] [address] [place] [id number] [place] CO2 [Moles/Vol] 26.6 mmol/L Normal 21.0-31.0 [facility] Comment on above: Performed By: #### C OVID-19 BECKY, SOFIANEG #### [facility] [address] [place] [id number] [place] Creatinine [Mass/Vol] 0.76 mg/dL Normal 0.70-1.30 [facility] Comment on above: Performed By: #### C OVID-19 BECKY, SOFIANEG #### [facility] [address] [place] [address] [place] Creatinine Clr Calc Pharmacy 74.66 [facility] Comment on above: Performed By: #### C OVID-19 BECKY, SOFIANEG #### [facility] [address] [place] [address] [place] GFR/1.73 sq M.predicted MDRD (S/P/Bld) [Vol rate/Area] mL/min/{1.73_m2} [facility] Comment on above: Performed By: #### C OVID-19 BECKY, SOFIANEG #### [facility] [address] Globulin (S) [Mass/Vol] 2.9 g/dL [facility] Comment on above: Performed By: #### C OVID-19 BECKY, SOFIANEG #### [facility] [address] Glucose [Mass/Vol] 106 mg/dL High 70-100 [facility] Comment on above: Result Comment: [facility] Glucose Reference Range is dependent on time and content of last meal. Glucose of more than 200 mg/dL in a nonstressed, ambulatory subject supports the diagnosis of Diabetes Mellitus. ADA recommended reference range Performed By: #### C OVID-19 BECKY, SOFIANEG #### [facility] [address] Potassium [Moles/Vol] 3.9 mmol/L Normal 3.5-5.1 [facility] Comment on above: Performed By: #### C OVID-19 BECKY, SOFIANEG #### [facility] [address] [place] [address] [place] Protein [Mass/Vol] 5.9 g/dL Low 6.4-8.9 [facility] Comment on above: Performed By: #### C OVID-19 BECKY, SOFIANEG #### [facility] [address] [place] [address] [place] Sodium [Moles/Vol] 135 mmol/L Low 136-145 [facility] Comment on above: Performed By: #### C OVID-19 BECKY, SOFIANEG #### [facility] [address] Urea nitrogen [Mass/Vol] 11 mg/dL Normal 7-25 [facility] Comment on above: Performed By: #### C OVID-19 BECKY, SOFIANEG #### [facility] [address] Platelet adequacy [Presence] in Blood by Light microscopyOrdered By: Obaydah Daromar on 05-27-2022 Platelets LM Ql (Bld) Decreased Normal [facility] Platelet morphology finding [Identifier] in BloodOrdered By: Obaydah Daromar on 05-27-2022 Platelet morphology finding Nom (Bld) Normal Normal [facility] RBC morphologyOrdered By: Ob aydah Daromar on 05-27-2022 RBC morphology finding Nom (Bld) Normal Normal [facility] Scan and CBCon 05-27-2022 Basophils (Bld) [#/Vol] 0.0 10*3/uL Normal 0.0-0.2 [facility] Comment on above: Performed By: #### C OVID-19 BECKY, SOFIANEG #### [facility] [address] [place] [address] Basophils/100 WBC (Bld) 0.4 % Normal . [facility] Comment on above: Performed By: #### C OVID-19 BECKY, SOFIANEG #### [facility] [address] [place] [address] [place] Eosinophils (Bld) [#/Vol] 0.3 10*3/uL Normal 0.0-0.45 [facility] Comment on above: Performed By: #### C OVID-19 BECKY, SOFIANEG #### [facility] [address] [place] [address] Eosinophils/100 WBC (Bld) 4.1 % Normal . [facility] Comment on above: Performed By: #### C OVID-19 BECKY, SOFIANEG #### [facility] [address] [place] [address] [place] Erythrocyte distribution width (RBC) [Ratio] 14.2 % Normal 12.0-14.8 [facility] Comment on above: Performed By: #### C OVID-19 BECKY, SOFIANEG #### [facility] [address] Hematocrit (Bld) [Volume fraction] 42.4 % Normal 38.8-50.0 [facility] Comment on above: Performed By: #### C OVID-19 BECKY, SOFIANEG #### [facility] [address] Hemoglobin (Bld) [Mass/Vol] 13.8 g/dL Normal 13.0-17.0 [facility] Comment on above: Performed By: #### C OVID-19 BECKY, SOFIANEG #### [facility] [address] Lymphocytes (Bld) [#/Vol] 0.6 10*3/uL Low 1.00-4.8 [facility] Comment on above: Performed By: #### C OVID-19 BECKY, SOFIANEG #### [facility] [address] Lymphocytes/100 WBC (Bld) 9.4 % Normal . [facility] Comment on above: Performed By: #### C OVID-19 BECKY, SOFIANEG #### [facility] [address] MCH (RBC) [Entitic mass] 29.2 pg Normal 27.5-35.2 [facility] Comment on above: Performed By: #### C OVID-19 BECKY, SOFIANEG #### [facility] [address] MCV (RBC) [Entitic vol] 89.9 fL Normal 83.5-101 [facility] Comment on above: Performed By: #### C OVID-19 BECKY, SOFIANEG #### [facility] [address] Mean Corpuscular HGB Conc 32.5 g/dL Normal 32.5-35.6 [facility] Comment on above: Performed By: #### C OVID-19 BECKY, SOFIANEG #### [facility] [address] [place] [address] Monocytes (Bld) [#/Vol] 0.8 10*3/uL Normal 0.0-0.8 [facility] Comment on above: Performed By: #### C OVID-19 BECKY, SOFIANEG #### [address] Monocytes/100 WBC (Bld) 12.3 % Normal . [facility] Comment on above: Performed By: #### C OVID-19 BECKY, SOFIANEG #### [address] Neutrophils (Bld) [#/Vol] 5.0 10*3/uL Normal 1.8-7.7 [facility] Comment on above: Performed By: #### C OVID-19 BECKY, SOFIANEG #### [address] Neutrophils/100 WBC (Bld) 73.8 % Normal . [facility] Comment on above: Performed By: #### C OVID-19 BECKY, SOFIANEG #### [address] NRBC% 0.1 /100{WBC} Normal 0-0.5 [facility] Comment on above: Performed By: #### C OVID-19 BECKY, SOFIANEG #### [address] Platelet Estimate Decreased Normal Normal [facility] Comment on above: Performed By: #### C OVID-19 BECKY, SOFIANEG #### [address] Platelet mean volume (Bld) [Entitic vol] 8.4 fL Normal 6.6-10.1 [facility] Comment on above: Performed By: #### C OVID-19 BECKY, SOFIANEG #### [place] [address] [place] Platelet Morphology Normal Normal Normal [facility] Comment on above: Result Comment: PERF ORMED BY: [place] [address] PATHOLOGIST RETORT ENGINEER CHELSY BHAGAT M.D. Performed By: #### C OVID-19 BECKY, SOFIANEG #### [facility] [address] [place] [address] Platelets (Bld) [#/Vol] 143 10*3/uL Low 150-450 [facility] Comment on above: Performed By: #### C OVID-19 BECKY, SOFIANEG #### [address] RBC (Bld) [#/Vol] 4.72 10*6/uL Normal 3.90-5.[address] [facility] Comment on above: Performed By: #### C OVID-19 BECKY, SOFIANEG #### [address] RBC morphology finding Nom (Bld) Normal Normal Normal [facility] Comment on above: Performed By: #### C OVID-19 BECKY, SOFIANEG #### [address] WBC (Bld) [#/Vol] 6.7 10*3/uL Normal 4.1-10.5 [facility] Comment on above: Performed By: #### C OVID-19 BECKY, SOFIANEG #### [address] Bilirubin,Directon 3 Bilirubin.indirect [Mass/Vol] 2.60 mg/dL High 0.03-0.18 [facility] Comment on above: Result Comment: PERF ORMED BY: [place] [address] PATHOLOGIST RETORT ENGINEER CHELSY BHAGAT M.D. Performed By: #### B ILID, MG, CMP #### [facility] [address] [place] [address] Complete Blood Count Auto Di ffon 05-26-2022 Basophils (Bld) [#/Vol] 0.1 10*3/uL Normal 0.0-0.2 [facility] Comment on above: Result Comment: PERF ORMED BY: [facility] [address] [place] [address] PATHOLOGIST RETORT ENGINEER CHELSY BHAGAT M.D. Performed By: #### C BC ####[address] Basophils/100 WBC (Bld) 0.5 % Normal . [facility] Comment on above: Performed By: #### C BC ####[address] Eosinophils (Bld) [#/Vol] 0.3 10*3/uL Normal 0.0-0.45 [facility] Comment on above: Performed By: #### C BC ####[address] Eosinophils/100 WBC (Bld) 2.8 % Normal . [facility] Comment on above: Performed By: #### C BC ####[address] Erythrocyte distribution width (RBC) [Ratio] 14.2 % Normal 12.0-14.8 [facility] Comment on above: Performed By: #### C BC ####[address] Hematocrit (Bld) [Volume fraction] 39.9 % Normal 38.8-50.0 [facility] Comment on above: Performed By: #### C BC ####[address] Hemoglobin (Bld) [Mass/Vol] 12.9 g/dL Low 13.0-17.0 [facility] Comment on above: Performed By: #### C BC ####[address] Lymphocytes (Bld) [#/Vol] 0.8 10*3/uL Low 1.00-4.8 [facility] Comment on above: Performed By: #### C BC ####[place] [id number] [facility] Lymphocytes/100 WBC (Bld) 7.0 % Normal . [facility] Comment on above: Performed By: #### C BC ####[address] [address] [facility] MCH (RBC) [Entitic mass] 29.1 pg Normal 27.5-35.2 [facility] Comment on above: Performed By: #### C BC ####[place] [id number] [facility] MCV (RBC) [Entitic vol] 89.6 fL Normal 83.5-101 [facility] Comment on above: Performed By: #### C BC ####[place] [id number] [facility] Mean Corpuscular HGB Conc 32.4 g/dL Low 32.5-35.6 [facility] Comment on above: Performed By: #### C BC ####[address] [address] [facility] Monocytes (Bld) [#/Vol] 1.4 10*3/uL High 0.0-0.8 [facility] Comment on above: Performed By: #### C BC ####[place] [id number] [facility] Monocytes/100 WBC (Bld) 13.4 % Normal . [facility] Comment on above: Performed By: #### C BC ####[place] [id number] [facility] Neutrophils (Bld) [#/Vol] 8.2 10*3/uL High 1.8-7.7 [facility] Comment on above: Performed By: #### C BC ####[place] [id number] [facility] Neutrophils/100 WBC (Bld) 76.3 % Normal . [facility] Comment on above: Performed By: #### C BC ####[facility] [place] [id number] [facility] NRBC% 0.0 /100{WBC} Normal 0-0.5 [facility] Comment on above: Performed By: #### C BC ####[facility] [place] [id number] [facility] Platelet mean volume (Bld) [Entitic vol] 8.3 fL Normal 6.6-10.1 [facility] Comment on above: Performed By: #### C BC ####[place] [id number] [address] Platelets (Bld) [#/Vol] 159 10*3/uL Normal 150-450 [facility] Comment on above: Performed By: #### C BC ####[address] RBC (Bld) [#/Vol] 4.45 10*6/uL Normal 3.90-5.[address] [facility] Comment on above: Performed By: #### C BC ####[place] [id number] [facility] WBC (Bld) [#/Vol] 10.7 10*3/uL High 4.1-10.[address] [facility] Comment on above: Performed By: #### C BC ####[place] [id number] [facility] Comprehensive Metabolic Pane jas 05-26-2022 Albumin [Mass/Vol] 2.9 g/dL Low 3.5-5.7 [facility] Comment on above: Performed By: #### B ILID, MG, CMP #### [facility] [address] Albumin/Globulin [Mass ratio] 1.2 {ratio} Normal [facility] [facility] Comment on above: Performed By: #### B ILID, MG, CMP #### [facility] [address] ALP [Catalytic activity/Vol] 127 U/L High 34-104 [facility] Comment on above: Performed By: #### B ILID, MG, CMP #### [facility] [address] [place] [id number] [facility] ALT [Catalytic activity/Vol] 180 U/L High 7-52 [facility] Comment on above: Performed By: #### B ILID, MG, CMP #### [facility] [address] [place] [address] [facility] Anion gap [Moles/Vol] 12.7 mmol/L Normal 6.0-15.0 [facility] Comment on above: Performed By: #### B ILID, MG, CMP #### [facility] [address] AST [Catalytic activity/Vol] 138 U/L High 13-39 [facility] Comment on above: Performed By: #### B ILID, MG, CMP #### [facility] [address] Bilirubin [Mass/Vol] 3.9 mg/dL High 0.3-1.[address] [facility] Comment on above: Result Comment: Samp les from patients who have taken Naproxen have shown spurious elevation in Total Bilirubin levels. A metabolite of Naproxen, O-desmethylnaproxen, has been shown to interfere with the Jendrassik-Grof method for measuring Total Bilirubin. Performed By: #### B ILID, MG, CMP #### [facility] [address] [place] [address] [place] Calcium [Mass/Vol] 8.0 mg/dL Low 8.6-10.3 [facility] Comment on above: Performed By: #### B ILID, MG, CMP #### [facility] [address] [place] [id number] [place] Chloride [Moles/Vol] 102 mmol/L Normal 98-[address] [facility] Comment on above: Performed By: #### B ILID, MG, CMP #### [facility] [address] [place] [address] [place] CO2 [Moles/Vol] 25.1 mmol/L Normal 21.0-31.0 [facility] Comment on above: Performed By: #### B ILID, MG, CMP #### [facility] [address] [place] [address] [place] Creatinine [Mass/Vol] 0.82 mg/dL Normal 0.70-1.30 [facility] Comment on above: Performed By: #### B ILID, MG, CMP #### [facility] [address] [place] [address] [place] Creatinine Clr Calc Pharmacy 67.00 [facility] Comment on above: Performed By: #### B ILID, MG, CMP #### [facility] [address] [place] [address] [place] GFR/1.73 sq M.predicted MDRD (S/P/Bld) [Vol rate/Area] mL/min/{1.73_m2} [facility] Comment on above: Performed By: #### B ILID, MG, CMP #### [facility] [address] Globulin (S) [Mass/Vol] 2.5 g/dL [facility] Comment on above: Performed By: #### B ILID, MG, CMP #### [facility] [address] Glucose [Mass/Vol] 95 mg/dL Normal 70-100 [facility] Comment on above: Result Comment: [facility] Glucose Reference Range is dependent on time and content of last meal. Glucose of more than 200 mg/dL in a nonstressed, ambulatory subject supports the diagnosis of Diabetes Mellitus. ADA recommended reference range Performed By: #### B ILID, MG, CMP #### [facility] [address] Potassium [Moles/Vol] 3.8 mmol/L Normal 3.5-5.1 [facility] Comment on above: Performed By: #### B ILID, MG, CMP #### [facility] [address] Protein [Mass/Vol] 5.4 g/dL Low 6.4-8.9 [facility] Comment on above: Performed By: #### B ILID, MG, CMP #### [facility] [address] Sodium [Moles/Vol] 136 mmol/L Normal 136-145 [facility] Comment on above: Performed By: #### B ILID, MG, CMP #### [facility] [address] Urea nitrogen [Mass/Vol] 12 mg/dL Normal 7-25 [facility] Comment on above: Performed By: #### B ILID, MG, CMP #### [facility] [address] Glucose Glucometer (BldC) [M ass/Vol]Ordered By: Anshu Jennings on 05-26-2022 Glucose [Mass/Vol] 115 mg/dL [facility] Comment on above: Random Glucose Refer ence Range is dependent on time and content of last meal. Glucose of more than 200 mg/dL in a nonstressed, ambulatory subject supports the diagnosis of Diabetes Mellitus. Glucose Poct Glucometerson 0 05-26-2022 Commemt1 Glu2: Cleaned Meter Normal [facility] Comment on above: Result Comment: PERF ORMED BY: [place] [address] PATHOLOGIST RETORT ENGINEER CHELSY BHAGAT M.D. Performed By: #### B ILID, MG, CMP #### [address] Glucose [Mass/Vol] 115 mg/dL Normal [facility] Comment on above: Result Comment: [place] [facility] Glucose Reference Range is dependent on time and content of last meal. Glucose of more than 200 mg/dL in a nonstressed, ambulatory subject supports the diagnosis of Diabetes Mellitus. Performed By: #### B ILID, MG, CMP #### [facility] [address] Magnesiumon 05-26-2022 Magnesium [Mass/Vol] 2.1 mg/dL Normal 1.9-2.[address] [facility] Comment on above: Performed By: #### B ILID, MG, CMP #### [facility] [address] [place] [id number] [facility] Magnesium [Mass/volume] in S marysol or PlasmaOrdered By: Anshu Jennings on 05-26-2022 Magnesium [Mass/Vol] 2.1 mg/dL 1.9-2.[address] [facility] No Panel InformationOrdered By: Anshu Jennings on 05-26-2022 Bedside Glucose Comment Glu2: cleaned meter [facility] Activated partial thrombopla stin time (aPTT) in platelet poor plasma by coagulation aOrdered By: Anna Navarro on 05-25-2022 aPTT Coag (PPP) [Time] 31.8 s 25.1-36.5 [facility] Alanine aminotransferase [En zymatic activity/volume] in Serum or PlasmaOrdered By: Anna Navarro on 05-25-2022 ALT [Catalytic activity/Vol] 49 U/L 7-52 [facility] Albumin [Mass/volume] in Ser um or Plasma by Bromocresol green (BCG) dye binding methoOrdered By: Anna Navarro on 05-25-2022 Albumin BCG dye [Mass/Vol] 3.4 g/dL 3.5-5.7 [facility] Alkaline phosphatase [Enzyma tic activity/volume] in Serum or PlasmaOrdered By: Anna Navarro on 05-25-2022 ALP [Catalytic activity/Vol] 104 U/L 34-104 [facility] Aspartate aminotransferase [ Enzymatic activity/volume] in Serum or PlasmaOrdered By: Anna Navarro on 05-25-2022 AST [Catalytic activity/Vol] 85 U/L 13-39 [facility] B-Type Natriuretic Peptideon 05-25-2022 Natriuretic peptide B (Bld) [Mass/Vol] 94.0 pg/mL Normal 5-100 [facility] Comment on above: Result Comment: PERF ORMED BY: [facility] [address] [place] [address] PATHOLOGIST RETORT ENGINEER CHELSY BHAGAT M.D. Performed By: #### P TT, HS TROP, HEPATIC, CBC, PT, BMP, LIPASE, BNP ####[place] [id number] [facility] Basic Metabolic Panelon 05-08 Anion gap [Moles/Vol] 13.2 mmol/L Normal 6.0-15.0 [facility] Comment on above: Performed By: #### P TT, HS TROP, HEPATIC, CBC, PT, BMP, LIPASE, BNP ####[place] [id number] [facility] Calcium [Mass/Vol] 8.1 mg/dL Low 8.6-10.3 [facility] Comment on above: Performed By: #### P TT, HS TROP, HEPATIC, CBC, PT, BMP, LIPASE, BNP ####[place] [id number] [facility] Chloride [Moles/Vol] 103 mmol/L Normal 98-[address] [facility] Comment on above: Performed By: #### P TT, HS TROP, HEPATIC, CBC, PT, BMP, LIPASE, BNP ####[place] [id number] [facility] CO2 [Moles/Vol] 25.9 mmol/L Normal 21.0-31.0 [facility] Comment on above: Performed By: #### P TT, HS TROP, HEPATIC, CBC, PT, BMP, LIPASE, BNP ####[place] [id number] [facility] Creatinine [Mass/Vol] 0.67 mg/dL Low 0.70-1.30 [facility] Comment on above: Performed By: #### P TT, HS TROP, HEPATIC, CBC, PT, BMP, LIPASE, BNP ####[place] [id number] [facility] Creatinine Clr Calc Pharmacy 80.38 [facility] Comment on above: Performed By: #### P TT, HS TROP, HEPATIC, CBC, PT, BMP, LIPASE, BNP ####[place] [id number] [facility] GFR/1.73 sq M.predicted MDRD (S/P/Bld) [Vol rate/Area] mL/min/{1.73_m2} Normal [facility] Comment on above: Performed By: #### P TT, HS TROP, HEPATIC, CBC, PT, BMP, LIPASE, BNP ####[address] Glucose [Mass/Vol] 123 mg/dL High 70-100 [facility] Comment on above: Result Comment: [facility] Glucose Reference Range is dependent on time and content of last meal. Glucose of more than 200 mg/dL in a nonstressed, ambulatory subject supports the diagnosis of Diabetes Mellitus. ADA recommended reference range Performed By: #### P TT, HS TROP, HEPATIC, CBC, PT, BMP, LIPASE, BNP ####[address] Potassium [Moles/Vol] 4.1 mmol/L Normal 3.5-5.1 [facility] Comment on above: Performed By: #### P TT, HS TROP, HEPATIC, CBC, PT, BMP, LIPASE, BNP ####[address] Sodium [Moles/Vol] 138 mmol/L Normal 136-145 [facility] Comment on above: Performed By: #### P TT, HS TROP, HEPATIC, CBC, PT, BMP, LIPASE, BNP ####[address] Urea nitrogen [Mass/Vol] 10 mg/dL Normal 7-25 [facility] Comment on above: Performed By: #### P TT, HS TROP, HEPATIC, CBC, PT, BMP, LIPASE, BNP ####[address] Basophils Auto (Bld) [#/Vol] Ordered By: Anna Navarro on 05-25-2022 Basophils (Bld) [#/Vol] 0.1 10*3/uL 0.0-0.2 [facility] Basophils/100 WBC Auto (Bld) Ordered By: Anna Navarro on 05-25-2022 Basophils/100 WBC (Bld) 0.8 % . [facility] Bilirubin.direct [Mass/volum e] in Serum or PlasmaOrdered By: Anna Navarro on 05-25-2022 Bilirubin.direct [Mass/Vol] 0.50 mg/dL 0.03-0.18 [facility] Bilirubin.total [Mass/volume ] in Serum or PlasmaOrdered By: Anna Navarro on 05-25-2022 Bilirubin [Mass/Vol] 1.2 mg/dL 0.3-1.[address] [facility] CT abdomen pelvis w conon CT abdomen pelvis w con [facility] [place] [address] [place] [address] CT Scan Report Signed Patient: Angella Pradhan MR#: [id number] : 1945 Acct:[id number] Age/Sex: 76 / M ADM Date: 05/25/22 Loc: ER Room: Type: [facility] ER Attending Dr: Copies to: Anna [...] Cholelithiasis. Impression dictated by: Horace Stark Jr., D.OBetsey05/25/2022 8:44 AM Dictation Location: [place] [address] Transcribed By: [facility] 05/25/2244 Dictated By: Horace Stark Jr, DO 05/25/2225 Signed By: 05/25/22843 Normal [facility] Calcium [Mass/volume] in Ser um or PlasmaOrdered By: Anna Navarro on 05-25-2022 Calcium [Mass/Vol] 8.1 mg/dL 8.6-10.3 [facility] Carbon dioxide, total [Moles /volume] in Serum or PlasmaOrdered By: Anna Navarro on 05-25-2022 CO2 [Moles/Vol] 25.9 mmol/L 21.0-31.0 [facility] Chloride [Moles/volume] in S marysol or PlasmaOrdered By: Anna Navarro on 05-25-2022 Chloride [Moles/Vol] 103 mmol/L 98-[address] [facility] Complete Blood Count Auto Di ffon 05-25-2022 Basophils (Bld) [#/Vol] 0.1 10*3/uL Normal 0.0-0.2 [facility] Comment on above: Result Comment: PERF ORMED BY: [facility] [address] [place] [address] PATHOLOGIST RETORT ENGINEER CHELSY BHAGAT M.D. Performed By: #### P TT, HS TROP, HEPATIC, CBC, PT, BMP, LIPASE, BNP ####[facility] [id number] [place] [address] [place] Basophils/100 WBC (Bld) 0.8 % Normal . [facility] Comment on above: Performed By: #### P TT, HS TROP, HEPATIC, CBC, PT, BMP, LIPASE, BNP ####[facility] [place] [id number] [place] Eosinophils (Bld) [#/Vol] 0.2 10*3/uL Normal 0.0-0.45 [facility] Comment on above: Performed By: #### P TT, HS TROP, HEPATIC, CBC, PT, BMP, LIPASE, BNP ####[address] Eosinophils/100 WBC (Bld) 1.8 % Normal . [facility] Comment on above: Performed By: #### P TT, HS TROP, HEPATIC, CBC, PT, BMP, LIPASE, BNP ####[address] Erythrocyte distribution width (RBC) [Ratio] 14.2 % Normal 12.0-14.8 [facility] Comment on above: Performed By: #### P TT, HS TROP, HEPATIC, CBC, PT, BMP, LIPASE, BNP ####[address] Hematocrit (Bld) [Volume fraction] 42.2 % Normal 38.8-50.0 [facility] Comment on above: Performed By: #### P TT, HS TROP, HEPATIC, CBC, PT, BMP, LIPASE, BNP ####[address] Hemoglobin (Bld) [Mass/Vol] 13.9 g/dL Normal 13.0-17.0 [facility] Comment on above: Performed By: #### P TT, HS TROP, HEPATIC, CBC, PT, BMP, LIPASE, BNP ####[address] Lymphocytes (Bld) [#/Vol] 1.4 10*3/uL Normal 1.00-4.8 [facility] Comment on above: Performed By: #### P TT, HS TROP, HEPATIC, CBC, PT, BMP, LIPASE, BNP ####[address] Lymphocytes/100 WBC (Bld) 15.0 % Normal . [facility] Comment on above: Performed By: #### P TT, HS TROP, HEPATIC, CBC, PT, BMP, LIPASE, BNP ####[address] MCH (RBC) [Entitic mass] 29.4 pg Normal 27.5-35.2 [facility] Comment on above: Performed By: #### P TT, HS TROP, HEPATIC, CBC, PT, BMP, LIPASE, BNP ####[address] MCV (RBC) [Entitic vol] 89.0 fL Normal 83.5-101 [facility] Comment on above: Performed By: #### P TT, HS TROP, HEPATIC, CBC, PT, BMP, LIPASE, BNP ####[address] Mean Corpuscular HGB Conc 33.0 g/dL Normal 32.5-35.6 [facility] Comment on above: Performed By: #### P TT, HS TROP, HEPATIC, CBC, PT, BMP, LIPASE, BNP ####[address] Monocytes (Bld) [#/Vol] 0.9 10*3/uL High 0.0-0.8 [facility] Comment on above: Performed By: #### P TT, HS TROP, HEPATIC, CBC, PT, BMP, LIPASE, BNP ####[address] Monocytes/100 WBC (Bld) 19.35 % Normal 0.00-20.00 [facility] Comment on above: Performed By: #### P TT, HS TROP, HEPATIC, CBC, PT, BMP, LIPASE, BNP ####[address] Monocytes/100 WBC (Bld) 9.3 % Normal . [facility] Comment on above: Performed By: #### P TT, HS TROP, HEPATIC, CBC, PT, BMP, LIPASE, BNP ####[address] Neutrophils (Bld) [#/Vol] 7.0 10*3/uL Normal 1.8-7.7 [facility] Comment on above: Performed By: #### P TT, HS TROP, HEPATIC, CBC, PT, BMP, LIPASE, BNP ####[address] Neutrophils/100 WBC (Bld) 73.1 % Normal . [facility] Comment on above: Performed By: #### P TT, HS TROP, HEPATIC, CBC, PT, BMP, LIPASE, BNP ####[address] NRBC% 0.0 /100{WBC} Normal 0-0.5 [facility] Comment on above: Performed By: #### P TT, HS TROP, HEPATIC, CBC, PT, BMP, LIPASE, BNP ####[address] Platelet mean volume (Bld) [Entitic vol] 8.0 fL Normal 6.6-10.1 [facility] Comment on above: Performed By: #### P TT, HS TROP, HEPATIC, CBC, PT, BMP, LIPASE, BNP ####[address] Platelets (Bld) [#/Vol] 189 10*3/uL Normal 150-450 [facility] Comment on above: Performed By: #### P TT, HS TROP, HEPATIC, CBC, PT, BMP, LIPASE, BNP ####[address] RBC (Bld) [#/Vol] 4.74 10*6/uL Normal 3.90-5.[address] [facility] Comment on above: Performed By: #### P TT, HS TROP, HEPATIC, CBC, PT, BMP, LIPASE, BNP ####[address] WBC (Bld) [#/Vol] 9.6 10*3/uL Normal 4.1-10.5 [facility] Comment on above: Performed By: #### P TT, HS TROP, HEPATIC, CBC, PT, BMP, LIPASE, BNP ####[place] [address] [facility] Creatinine [Mass/volume] in Serum or PlasmaOrdered By: Anna Navarro on 05-25-2022 Creatinine [Mass/Vol] 0.67 mg/dL 0.70-1.30 [facility] Digoxinon 05-25-2022 Digoxin [Mass/Vol] 0.8 ng/mL Low 0.9-2.0 [facility] Comment on above: Result Comment: Last dose: - PERFORMED BY: [place] [address] PATHOLOGIST RETORT ENGINEER CHELSY BHAGAT M.D. Performed By: #### D IG ####[facility] [id number] [place] [id number] [facility] Digoxin [Mass/volume] in Ser um or PlasmaOrdered By: Anna Navarro on 05-25-2022 Digoxin [Mass/Vol] 0.8 ng/mL 0.9-2.0 [facility] Comment on above: Last dose: - ECG 12 lead ECGon 05-25-2022 ECG 12 lead ECG [facility] [place] [address] [place] [address] Electrocardiograph Report Signed Patient: Angella Pradhan MR#: [id number] : 1945 Acct:[id number] Age/Sex: 76 / M ADM Date: 05/25/22 Loc: Room: [address] [place] [address] Type: ADM INOo Attending Dr: Anshu Jennings [...] Pino Dunbar MD 0 05/25/22 1654 Normal [facility] ECG 12 lead ECG [facility] [place] [address] Electrocardiograph Report Signed Patient: Angella Pradhan MR#: [id number] : 1945 Acct:[id number] Age/Sex: 76 / M ADM Date: 05/25/22 Loc: Room: [address] [place] [address] Type: ADM INOo Attending Dr: Anshu Jennings [...] Prolonged QT Confirmed by Anna Navarro DO ([id number]) on 05/25/2022 4:08:10 PM Referred By: Electronically Signed By:Anna Navarro DO Transcribed By: SIMIN Signed By Anna Navarro DO 1608 Normal [facility] Eosinophils Auto (Bld) [#/Vo l]Ordered By: Anna Navarro on 05-25-2022 Eosinophils (Bld) [#/Vol] 0.2 10*3/uL 0.0-0.45 [facility] Eosinophils/100 WBC Auto (Bl d)Ordered By: Anna Navarro on 05-25-2022 Eosinophils/100 WBC (Bld) 1.8 % . [facility] Erythrocyte distribution wid th Auto (RBC) [Ratio]Ordered By: Anna Navarro on 05-25-2022 Erythrocyte distribution width (RBC) [Ratio] 14.2 % 12.0-14.8 [facility] Globulin Calc (S) [Mass/Vol] Ordered By: Anna Navarro on 05-25-2022 Globulin (S) [Mass/Vol] 2.9 g/dL [facility] Glucose [Mass/volume] in Ser um or PlasmaOrdered By: Anna Navarro on 05-25-2022 Glucose [Mass/Vol] 123 mg/dL 70-100 [facility] Comment on above: ADA recommended refe rence rangeRandom Glucose Reference Range is dependent on time and content of last meal. Glucose of more than 200 mg/dL in a nonstressed, ambulatory subject supports the diagnosis of Diabetes Mellitus. Hematocrit Auto (Bld) [Volum e fraction]Ordered By: Anna Navarro on 05-25-2022 Hematocrit (Bld) [Volume fraction] 42.2 % 38.8-50.0 [facility] Hemoglobin [Mass/volume] in BloodOrdered By: Anna Navarro on 05-25-2022 Hemoglobin (Bld) [Mass/Vol] 13.9 g/dL 13.0-17.0 [facility] Hepatic Panelon 05-25-2022 Albumin [Mass/Vol] 3.4 g/dL Low 3.5-5.7 [facility] Comment on above: Performed By: #### P TT, HS TROP, HEPATIC, CBC, PT, BMP, LIPASE, BNP ####[facility] [id number] Albumin/Globulin [Mass ratio] 1.2 {ratio} Normal [facility] Comment on above: Performed By: #### P TT, HS TROP, HEPATIC, CBC, PT, BMP, LIPASE, BNP ####[facility] [id number] [place] [id number] [facility] ALP [Catalytic activity/Vol] 104 U/L Normal 34-104 [facility] Comment on above: Performed By: #### P TT, HS TROP, HEPATIC, CBC, PT, BMP, LIPASE, BNP ####[facility] [id number] [place] [id number] [facility] ALT [Catalytic activity/Vol] 49 U/L Normal 7-52 [facility] Comment on above: Performed By: #### P TT, HS TROP, HEPATIC, CBC, PT, BMP, LIPASE, BNP ####[address] AST [Catalytic activity/Vol] 85 U/L High 13-39 [facility] Comment on above: Performed By: #### P TT, HS TROP, HEPATIC, CBC, PT, BMP, LIPASE, BNP ####[address] Bilirubin [Mass/Vol] 1.2 mg/dL High 0.3-1.[address] [facility] Comment on above: Performed By: #### P TT, HS TROP, HEPATIC, CBC, PT, BMP, LIPASE, BNP ####[address] Bilirubin,Indirect 0.7 mg/dL Normal [facility] Comment on above: Performed By: #### P TT, HS TROP, HEPATIC, CBC, PT, BMP, LIPASE, BNP ####[address] Bilirubin.indirect [Mass/Vol] 0.50 mg/dL High 0.03-0.18 [facility] Comment on above: Performed By: #### P TT, HS TROP, HEPATIC, CBC, PT, BMP, LIPASE, BNP ####[address] Globulin (S) [Mass/Vol] 2.9 g/dL Normal [facility] Comment on above: Performed By: #### P TT, HS TROP, HEPATIC, CBC, PT, BMP, LIPASE, BNP ####[address] Protein [Mass/Vol] 6.3 g/dL Low 6.4-8.9 [facility] Comment on above: Performed By: #### P TT, HS TROP, HEPATIC, CBC, PT, BMP, LIPASE, BNP ####[address] Laboratory - CoagulationOrde red By: Anna Navarro on 05-25-2022 PT Coag (PPP) [Time] 17.0 s 9.0-12.[address] [facility] Leukocytes [#/volume] correc leslie for nucleated erythrocytes in Blood by Automated counOrdered By: Anna Navarro on 05-25-2022 WBC corrected for nucl RBC Auto (Bld) [#/Vol] 9.6 10*3/uL 4.1-10.5 [facility] Lipaseon 05-25-2022 Lipase [Catalytic activity/Vol] 24.0 U/L Normal 11.0-82.0 [facility] Comment on above: Result Comment: PERF ORMED BY: [facility] [address] [place] [address] PATHOLOGIST RETORT ENGINEER CHELSY BHAGAT M.D. Performed By: #### P TT, HS TROP, HEPATIC, CBC, PT, BMP, LIPASE, BNP ####[facility] [id number] [place] [address] [facility] Lipase [Enzymatic activity/v olume] in Serum or PlasmaOrdered By: Anna Navarro on 05-25-2022 Lipase [Catalytic activity/Vol] 24.0 U/L 11.0-82.0 [facility] Lymphocytes Auto (Bld) [#/Vo l]Ordered By: Anna Navarro on 05-25-2022 Lymphocytes (Bld) [#/Vol] 1.4 10*3/uL 1.00-4.8 [facility] Lymphocytes/100 WBC Auto (Bl d)Ordered By: Anna Navarro on 05-25-2022 Lymphocytes/100 WBC (Bld) 15.0 % . [facility] MCH Auto (RBC) [Entitic mass ]Ordered By: Anna Navarro on 05-25-2022 MCH (RBC) [Entitic mass] 29.4 pg 27.5-35.2 [facility] MCHC Auto (RBC) [Mass/Vol]Or dered By: Anna Navarro on 05-25-2022 MCHC (RBC) [Mass/Vol] 33.0 g/dL 32.5-35.6 [facility] MCV Auto (RBC) [Entitic vol] Ordered By: Anna Navarro on 05-25-2022 MCV (RBC) [Entitic vol] 89.0 fL 83.5-101 [facility] Monocyte distribution width [Entitic volume] in Blood by AutomatedOrdered By: Anna Navarro on 05-25-2022 Monocyte distribution width Auto (Bld) [Entitic vol] 19.35 % 0.00-20.00 [facility] Monocytes Auto (Bld) [#/Vol] Ordered By: Anna Navarro on 05-25-2022 Monocytes (Bld) [#/Vol] 0.9 10*3/uL 0.0-0.8 [facility] Monocytes/100 WBC Auto (Bld) Ordered By: Anna Navarro on 05-25-2022 Monocytes/100 WBC (Bld) 9.3 % . [facility] Natriuretic peptide B [Mass/ Vol]Ordered By: Anna Navarro on 05-25-2022 Natriuretic peptide B (Bld) [Mass/Vol] 94.0 pg/mL 5-100 [facility] Neutrophils Auto (Bld) [#/Vo l]Ordered By: Anna Navarro on 05-25-2022 Neutrophils (Bld) [#/Vol] 7.0 10*3/uL 1.8-7.7 [facility] Neutrophils/100 WBC Auto (Bl d)Ordered By: Anna Navarro on 05-25-2022 Neutrophils/100 WBC (Bld) 73.1 % . [facility] No Panel InformationOrdered By: Anna Navarro on 05-25-2022 Estimated GFR (CKD-EPI) > 60.0 mL/Min [facility] Creatinine Clearance (Chem 80.38 [facility] Nucleated erythrocytes [Pres ence] in Blood by Automated countOrdered By: Anna Navarro on 05-25-2022 Nucleated RBC Auto Ql (Bld) 0.0 /100{WBC} 0-0.5 [facility] Partial Thromboplastin Timeo n 05-25-2022 aPTT Coag (Bld) [Time] 31.8 s Normal 25.1-36.5 [facility] Comment on above: Result Comment: PERF ORMED BY: [facility] [address] [place] [address] PATHOLOGIST RETORT ENGINEER CHELSY BHAGAT M.D. Performed By: #### P TT, HS TROP, HEPATIC, CBC, PT, BMP, LIPASE, BNP ####[facility] [id number] [place] [address] [facility] Platelet mean volume Auto (B ld) [Entitic vol]Ordered By: Anna Navarro on 05-25-2022 Platelet mean volume (Bld) [Entitic vol] 8.0 fL 6.6-10.1 [facility] Platelet poor plasma interna tional normalized ratio (INR) by coagulation assay (relatOrdered By: Anna Navarro on 05-25-2022 INR Coag (PPP) [Relative time] 1.5 {INR} [facility] Comment on above: INR Therapeutic Rang [...] 05-25-2022 Platelets (Bld) [#/Vol] 189 10*3/uL 150-450 [facility] Potassium [Moles/volume] in Serum or PlasmaOrdered By: Anna Navarro on 05-25-2022 Potassium [Moles/Vol] 4.1 mmol/L 3.5-5.1 [facility] [facility] [Mass/volume] in Ser um or PlasmaOrdered By: Anna Navarro on 05-25-2022 Protein [Mass/Vol] 6.3 g/dL 6.4-8.9 [facility] Prothrombin Time INRon 05-25 INR Coag (PPP) [Relative time] 1.5 {INR} Normal [facility] Comment on above: Result Comment: INR [...] CBC, PT, BMP, LIPASE, BNP ####[facility] [place] [address] [facility] PT Coag (PPP) [Time] 17.0 s High 9.0-12.[address] [facility] Comment on above: Performed By: #### P TT, HS TROP, HEPATIC, CBC, PT, BMP, LIPASE, BNP ####[place] [address] [place] [id number] [facility] RBC Auto (Bld) [#/Vol]Ordere d By: Anna Navarro on 05-25-2022 RBC (Bld) [#/Vol] 4.74 10*6/uL 3.90-5.[address] [facility] Serum or plasma albumin/glob ulin mass ratioOrdered By: Anna Navarro on 05-25-2022 Albumin/Globulin [Mass ratio] 1.2 {ratio} [facility] Serum or plasma anion gap de terminationOrdered By: Anna Navarro on 05-25-2022 Anion gap [Moles/Vol] 13.2 mmol/L 6.0-15.0 [facility] Serum or plasma non-glucuron idated bilirubin measurement (mass/volume)Ordered By: Anna Navarro on 05-25-2022 Bilirubin.indirect [Mass/Vol] 0.7 mg/dL [facility] Sodium [Moles/volume] in Ser um or PlasmaOrdered By: Anna Navarro on 05-25-2022 Sodium [Moles/Vol] 138 mmol/L 136-145 [facility] Troponin I High Sensitivityo n 05-25-2022 Troponin I High Sensitivity 15.2 pg/mL Normal 0.0-20.0 [facility] Comment on above: Result Comment: PERF ORMED BY: [facility] [address] [place] [address] PATHOLOGIST RETORT ENGINEER CHELSY BHAGAT M.D. Performed By: #### A ERC #### [facility] [address] [place] [id number] [facility] Troponin I High Sensitivity 7.2 pg/mL Normal 0.0-20.0 [facility] Comment on above: Result Comment: PERF ORMED BY: [place] [address] PATHOLOGIST RETORT ENGINEER CHELSY BHAGAT M.D. Performed By: #### H S TROP #### [facility] [address] [place] [address] Troponin I High Sensitivity 7.6 pg/mL Normal 0.0-20.0 [facility] Comment on above: Result Comment: PERF ORMED BY: [place] [address] PATHOLOGIST RETORT ENGINEER CHELSY BHAGAT M.D. Performed By: #### P TT, HS TROP, HEPATIC, CBC, PT, BMP, LIPASE, BNP ####[facility] [id number] [place] [address] [place] Troponin I.cardiac [Mass/vol ume] in Serum or Plasma by Detection limit <= 0.01 ng/Ordered By: Anshu Jennings on 05-25-2022 Troponin I.cardiac DL <= 0.01 ng/mL [Mass/Vol] 15.2 pg/mL 0.0-20.0 [facility] Troponin I.cardiac [Mass/vol ume] in Serum or Plasma by Detection limit <= 0.01 ng/Ordered By: Anna Navarro on 05-25-2022 Troponin I.cardiac DL <= 0.01 ng/mL [Mass/Vol] 7.2 pg/mL 0.0-20.0 [facility] US gall bladderon 05-25-2022 US gall bladder [facility] [address] [place] [address] [place] [address] Ultrasound Report Signed Patient: Angella Pradhan MR#: [id number] : 1945 Acct:[id number] Age/Sex: 76 / M ADM Date: 05/25/22 Loc: 3T Room: [address] [place] [address] Type: ADM INOo Attending Dr: Anshu Jennings [...] RECOMMENDED.. Impression dictated by: Horace Stark Jr., D.OBetsey05/25/2022 2:51 PM Dictation Location: [place] [address] Tech: Debbie Kasper Transcribed By: JOSE 05/25/22 1451 Dictated By: Horace Stark Jr, DO 05/25/22 1449 Signed By: 05/25/22 1451 Normal [facility] Urea nitrogen [Mass/volume] in Serum or PlasmaOrdered By: Anna Navarro on 05-25-2022 Urea nitrogen [Mass/Vol] 10 mg/dL 7-25 [facility] WBC Auto (Bld) [#/Vol]Ordere d By: Anna Navarro on 05-25-2022 WBC (Bld) [#/Vol] 9.6 10*3/uL 4.1-10.5 [facility] XR chest 1V portableon 05-25 XR chest 1V portable [place] [address] XRay Report Signed Patient: Angella Pradhan MR#: [id number] : 1945 Acct:[id number] Age/Sex: 76 / M ADM Date: 05/25/22 Loc: ER Room: Type: [facility] ER Attending Dr: Copies to: Anna [...] Stark Jr., D.O.05/25/2022 9:54 AM Dictation Location: [place] [address] Transcribed By: [facility] 05/25/22 0954 Dictated By: Horace Stark Jr, DO 05/25/22 0954 Signed By: 05/25/22 0954 Normal [facility] COVID-19 FRon 04-02-2022 SARS-CoV-2 (COVID-19) RNA VITA+probe Ql (Unsp spec) Negative Normal Negative [facility] Comment on above: Order Comment: Healt hcare Worker?: N Result Comment: Testing for SARS-CoV-2 by RT-PCR This test was developed and its performance characteristics determined by [employer] and validated at the [facility]. This test has not been FDA [...] is terminated or revoked sooner. PERFORMED BY: [facility] [address] [place] [address] PATHOLOGIST RETORT ENGINEER CHELSY BHAGAT M.D. Performed By: #### B ILID, MG, CMP #### [facility] [address] COVID-19 Positive/NegativeOr dered By: Horace Palafox on 04-02-2022 SARS-CoV-2 (COVID-19) N gene VITA+probe Ql (Resp) Negative Negative [facility] Comment on above: Testing for SARS-CoV -2 by RT-PCRThis test was developed and its performance characteristics determined by [employer]) and validated at the [facility]. This test has not been FDA [...] Palafox on 03-31-2022 Glucose [Mass/Vol] 164 mg/dL [facility] Comment on above: Random Glucose Refer ence Range is dependent on time and content of last meal. Glucose of more than 200 mg/dL in a nonstressed, ambulatory subject supports the diagnosis of Diabetes Mellitus. Glucose Poct Glucometerson 0 03-31-2022 Glucose [Mass/Vol] 164 mg/dL Normal [facility] Comment on above: Result Comment: [facility] Glucose Reference Range is dependent on time and content of last meal. Glucose of more than 200 mg/dL in a nonstressed, ambulatory subject supports the diagnosis of Diabetes Mellitus. PERFORMED BY: [place] [address] PATHOLOGIST RETORT ENGINEER CHELSY BHAGAT M.D. Performed By: #### G AVI ####Point of Care testing, Basic Metabolic Panelon 03-11 Anion gap [Moles/Vol] 10.1 mmol/L Normal 6.0-15.0 [facility] Comment on above: Performed By: #### B ILID, MG, CMP #### [facility] [address] Calcium [Mass/Vol] 8.3 mg/dL Normal 8.2-10.2 [facility] Comment on above: Performed By: #### B ILID, MG, CMP #### [facility] [address] Chloride [Moles/Vol] 102 mmol/L Normal 95-[address] [facility] Comment on above: Performed By: #### B ILID, MG, CMP #### [facility] [address] CO2 [Moles/Vol] 27.2 mmol/L Normal 22.0-30.0 [facility] Comment on above: Performed By: #### B ILID, MG, CMP #### [facility] [address] [place] [address] [place] Creatinine [Mass/Vol] 0.72 mg/dL Normal 0.64-1.27 [facility] Comment on above: Performed By: #### B ILID, MG, CMP #### [facility] [address] [place] [address] [place] Creatinine Clr Calc Pharmacy 78.08 Normal [facility] Comment on above: Result Comment: PERF ORMED BY: [facility] [address] [place] [address] PATHOLOGIST RETORT ENGINEER JIANLAN SUN M.D. Performed By: #### B ILID, MG, CMP #### [facility] [address] Estimated GFR ( Altagracia > 60 [facility] Comment on above: Result Comment: GFR estimated reference range: According to KDOQI guidelines, <60 ml/min/1.73m2 is sufficient to diagnose a patient with chronic kidney disease. Performed By: #### B ILID, MG, CMP #### [facility] [address] Estimated GFR (Non- Am > 60 [facility] Comment on above: Performed By: #### B ILID, MG, CMP #### [address] Glucose [Mass/Vol] 110 mg/dL High 70-100 [facility] Comment on above: Result Comment: [facility] Glucose Reference Range is dependent on time and content of last meal. Glucose of more than 200 mg/dL in a nonstressed, ambulatory subject supports the diagnosis of Diabetes Mellitus. ADA recommended reference range Performed By: #### B ILID, MG, CMP #### [address] Potassium [Moles/Vol] 4.3 mmol/L Normal 3.5-5.1 [facility] Comment on above: Performed By: #### B ILID, MG, CMP #### [facility] [address] [place] [address] [place] Sodium [Moles/Vol] 135 mmol/L Low 136-146 [facility] Comment on above: Performed By: #### B ILID, MG, CMP #### [facility] [address] Urea nitrogen [Mass/Vol] 10 mg/dL Normal 9-23 [facility] Comment on above: Performed By: #### B ILID, MG, CMP #### [facility] [address] Basophils Auto (Bld) [#/Vol] Ordered By: Cesilia Rosales on 03-29-2022 Basophils (Bld) [#/Vol] 0.1 10*3/uL 0.0-0.2 [facility] Basophils/100 WBC Auto (Bld) Ordered By: Cesilia Rosales on 03-29-2022 Basophils/100 WBC (Bld) 0.6 % . [facility] Calcium [Mass/volume] in Ser um or PlasmaOrdered By: Cesilia Rosales on 03-29-2022 Calcium [Mass/Vol] 8.3 mg/dL 8.2-10.2 [facility] Carbon dioxide, total [Moles /volume] in Serum or PlasmaOrdered By: Cesilia Rosales on 03-29-2022 CO2 [Moles/Vol] 27.2 mmol/L 22.0-30.0 [facility] Chloride [Moles/volume] in S marysol or PlasmaOrdered By: Cesilia Rosales on 03-29-2022 Chloride [Moles/Vol] 102 mmol/L 95-[address] [facility] Clostridioides difficile tox in B tcdB gene [Presence] in Stool by VITA with probe deteOrdered By: Cesilia Rosales on 03-29-2022 C. difficile toxin B tcdB gene VITA+probe Ql (Stl) Positive Negative [facility] Comment on above: Results calledat 005 4 on 03/30/22 Testing performed by RT-PCR Clostridium Difficileon 03-11 Clostridium Difficile Positive Normal Negative [facility] Comment on above: Order Comment: > or = to 3 loose/watery stools in the last 24 HRS? Y Is patient on promotility agents or tube feeding? N Result Comment: Resu lts called at 0054 on 03/30/22 Testing performed by RT-PCR PERFORMED BY: [place] [address] PATHOLOGIST RETORT ENGINEER CHELSY BHAGAT M.D. Performed By: #### C DT #### [address] Complete Blood Count Auto Di ffon 03-29-2022 Basophils (Bld) [#/Vol] 0.1 10*3/uL Normal 0.0-0.2 [facility] Comment on above: Result Comment: PERF ORMED BY: [place] [address] PATHOLOGIST RETORT ENGINEER CHELSY BHAGAT M.D. Performed By: #### B ILID, MG, CMP #### [address] Basophils/100 WBC (Bld) 0.6 % Normal . [facility] Comment on above: Performed By: #### B ILID, MG, CMP #### [address] Eosinophils (Bld) [#/Vol] 0.4 10*3/uL Normal 0.0-0.45 [facility] Comment on above: Performed By: #### B ILID, MG, CMP #### [address] Eosinophils/100 WBC (Bld) 3.8 % Normal . [facility] Comment on above: Performed By: #### B ILID, MG, CMP #### [address] Erythrocyte distribution width (RBC) [Ratio] 13.9 % Normal 12.0-14.8 [facility] Comment on above: Performed By: #### B ILID, MG, CMP #### [address] Hematocrit (Bld) [Volume fraction] 30.9 % Low 38.8-50.0 [facility] Comment on above: Performed By: #### B ILID, MG, CMP #### [address] Hemoglobin (Bld) [Mass/Vol] 10.1 g/dL Low 13.0-17.0 [facility] Comment on above: Performed By: #### B ILID, MG, CMP #### [place] [address] [place] Lymphocytes (Bld) [#/Vol] 1.6 10*3/uL Normal 1.00-4.8 [facility] Comment on above: Performed By: #### B ILID, MG, CMP #### [facility] [address] Lymphocytes/100 WBC (Bld) 14.1 % Normal . [facility] Comment on above: Performed By: #### B ILID, MG, CMP #### [facility] [address] MCH (RBC) [Entitic mass] 29.6 pg Normal 27.5-35.2 [facility] Comment on above: Performed By: #### B ILID, MG, CMP #### [facility] [address] MCV (RBC) [Entitic vol] 90.1 fL Normal 83.5-101 [facility] Comment on above: Performed By: #### B ILID, MG, CMP #### [facility] [address] Mean Corpuscular HGB Conc 32.9 g/dL Normal 32.5-35.6 [facility] Comment on above: Performed By: #### B ILID, MG, CMP #### [facility] [address] [place] [address] [place] Monocytes (Bld) [#/Vol] 1.8 10*3/uL High 0.0-0.8 [facility] Comment on above: Performed By: #### B ILID, MG, CMP #### [facility] [address] [place] [address] [place] Monocytes/100 WBC (Bld) 16.3 % Normal . [facility] Comment on above: Performed By: #### B ILID, MG, CMP #### [facility] [address] [place] [address] [place] Neutrophils (Bld) [#/Vol] 7.4 10*3/uL Normal 1.8-7.7 [facility] Comment on above: Performed By: #### B ILID, MG, CMP #### [facility] [address] [place] [address] [place] Neutrophils/100 WBC (Bld) 65.2 % Normal . [facility] Comment on above: Performed By: #### B ILID, MG, CMP #### [facility] [address] NRBC% 0.1 /100{WBC} Normal 0-0.5 [facility] Comment on above: Performed By: #### B ILID, MG, CMP #### [facility] [address] [place] [address] Platelet mean volume (Bld) [Entitic vol] 7.1 fL Normal 6.6-10.1 [facility] Comment on above: Performed By: #### B ILID, MG, CMP #### [address] Platelets (Bld) [#/Vol] 319 10*3/uL Normal 150-450 [facility] Comment on above: Performed By: #### B ILID, MG, CMP #### [address] RBC (Bld) [#/Vol] 3.43 10*6/uL Low 3.90-5.[address] [facility] Comment on above: Performed By: #### B ILID, MG, CMP #### [address] WBC (Bld) [#/Vol] 11.3 10*3/uL High 4.1-10.[address] [facility] Comment on above: Performed By: #### B ILID, MG, CMP #### [address] Creatinine and Glomerular fi ltration rate.predicted panel (S/P/Bld)Ordered By: Cesilia Rosales on 03-29-2022 Creatinine [Mass/Vol] 0.72 mg/dL 0.64-1.27 [facility] Eosinophils Auto (Bld) [#/Vo l]Ordered By: Cesilia Rosales on 03-29-2022 Eosinophils (Bld) [#/Vol] 0.4 10*3/uL 0.0-0.45 [facility] Eosinophils/100 WBC Auto (Bl d)Ordered By: Cesilia Rosales on 03-29-2022 Eosinophils/100 WBC (Bld) 3.8 % . [facility] Erythrocyte distribution wid th Auto (RBC) [Ratio]Ordered By: Cesilia Rosales on 03-29-2022 Erythrocyte distribution width (RBC) [Ratio] 13.9 % 12.0-14.8 [facility] Estimated glomerular filtrat ion rate (GFR) non- AmericanOrdered By: Cesilia Rosales on 03-29-2022 GFR/1.73 sq M.predicted among non-blacks MDRD (S/P/Bld) [Vol rate/Area] > 60 mL/Min [facility] Glucose [Mass/volume] in Ser um or PlasmaOrdered By: Cesilia Rosales on 03-29-2022 Glucose [Mass/Vol] 110 mg/dL 70-100 [facility] Comment on above: ADA recommended refe rence rangeRandom Glucose Reference Range is dependent on time and content of last meal. Glucose of more than 200 mg/dL in a nonstressed, ambulatory subject supports the diagnosis of Diabetes Mellitus. Hematocrit Auto (Bld) [Volum e fraction]Ordered By: Cesilia Rosales on 03-29-2022 Hematocrit (Bld) [Volume fraction] 30.9 % 38.8-50.0 [facility] Hemoglobin [Mass/volume] in BloodOrdered By: Cesilia Rosales on 03-29-2022 Hemoglobin (Bld) [Mass/Vol] 10.1 g/dL 13.0-17.0 [facility] Leukocytes [#/volume] correc leslie for nucleated erythrocytes in Blood by Automated counOrdered By: Cesilia Rosales on 03-29-2022 WBC corrected for nucl RBC Auto (Bld) [#/Vol] 11.3 10*3/uL 4.1-10.5 [facility] Lymphocytes Auto (Bld) [#/Vo l]Ordered By: Cesilia Rosales on 03-29-2022 Lymphocytes (Bld) [#/Vol] 1.6 10*3/uL 1.00-4.8 [facility] Lymphocytes/100 WBC Auto (Bl d)Ordered By: Cesilia Rosales on 03-29-2022 Lymphocytes/100 WBC (Bld) 14.1 % . [facility] MCH Auto (RBC) [Entitic mass ]Ordered By: Cesilia Rosales on 03-29-2022 MCH (RBC) [Entitic mass] 29.6 pg 27.5-35.2 [facility] MCHC Auto (RBC) [Mass/Vol]Or dered By: Cesilia Rosales on 03-29-2022 MCHC (RBC) [Mass/Vol] 32.9 g/dL 32.5-35.6 [facility] MCV Auto (RBC) [Entitic vol] Ordered By: Cesilia Rosales on 03-29-2022 MCV (RBC) [Entitic vol] 90.1 fL 83.5-101 [facility] Monocytes Auto (Bld) [#/Vol] Ordered By: Cesilia Rosales on 03-29-2022 Monocytes (Bld) [#/Vol] 1.8 10*3/uL 0.0-0.8 [facility] Monocytes/100 WBC Auto (Bld) Ordered By: Cesilia Rosales on 03-29-2022 Monocytes/100 WBC (Bld) 16.3 % . [facility] Neutrophils Auto (Bld) [#/Vo l]Ordered By: Cesilia Rosales on 03-29-2022 Neutrophils (Bld) [#/Vol] 7.4 10*3/uL 1.8-7.7 [facility] Neutrophils/100 WBC Auto (Bl d)Ordered By: Cesilia Rosales on 03-29-2022 Neutrophils/100 WBC (Bld) 65.2 % . [facility] No Panel InformationOrdered By: Cesilia Rosales on 03-29-2022 Estimated GFR () > 60 mL/Min [facility] Comment on above: GFR estimated refere nce range: According to KDOQI guidelines, <60 ml/min/1.73m2 is sufficient to diagnose a patient with chronic kidney disease. Pharmacy Creatinine Clearance (Chem 78.08 [facility] Nucleated erythrocytes [Pres ence] in Blood by Automated countOrdered By: Cesilia Rosales on 03-29-2022 Nucleated RBC Auto Ql (Bld) 0.1 /100{WBC} 0-0.5 [facility] Platelet mean volume Auto (B ld) [Entitic vol]Ordered By: Cesilia Rosales on 03-29-2022 Platelet mean volume (Bld) [Entitic vol] 7.1 fL 6.6-10.1 [facility] Platelets Auto (Bld) [#/Vol] Ordered By: Cesilia Rosales on 03-29-2022 Platelets (Bld) [#/Vol] 319 10*3/uL 150-450 [facility] Potassium [Moles/volume] in Serum or PlasmaOrdered By: Cesilia Rosales on 03-29-2022 Potassium [Moles/Vol] 4.3 mmol/L 3.5-5.1 [facility] RBC Auto (Bld) [#/Vol]Ordere d By: Cesilia Rosales on 03-29-2022 RBC (Bld) [#/Vol] 3.43 10*6/uL 3.90-5.[address] [facility] Serum or plasma anion gap de terminationOrdered By: Cesilia Rosales on 03-29-2022 Anion gap [Moles/Vol] 10.1 mmol/L 6.0-15.0 [facility] Sodium [Moles/volume] in Ser um or PlasmaOrdered By: Cesilia Rosales on 03-29-2022 Sodium [Moles/Vol] 135 mmol/L 136-146 [facility] Urea nitrogen [Mass/volume] in Serum or PlasmaOrdered By: Cesilia Rosales on 03-29-2022 Urea nitrogen [Mass/Vol] 10 mg/dL 9-23 [facility] WBC Auto (Bld) [#/Vol]Ordere d By: Cesilia Rosales on 03-29-2022 WBC (Bld) [#/Vol] 11.3 10*3/uL 4.1-10.[address] [facility] US venous duplex LE BIon US venous duplex LE [place] [address] Ultrasound Report Signed Patient: Angella Pradhan MR#: [id number] : 1945 Acct:[id number] Age/Sex: 76 / M ADM Date: 03/22/22 Loc: Room: [address] [place] [address] Type: ADM IN Attending Dr: Horace Palafox [...] Merritt Mcneil M.D.03/27/2022 8:48 AM Dictation Location: [place] [address] Tech: Susy Glass Transcribed By: JOSE 03/27/2248 Dictated By: Merritt Mcneil MD 03/27/2248 Signed By: 03/27/22847 Normal [facility] Albumin [Mass/volume] in Ser um or PlasmaOrdered By: Horace Palafox on 03-23-2022 Albumin [Mass/Vol] 2.4 g/dL 3.2-5.5 [facility] Alkaline phosphatase [Enzyma tic activity/volume] in Serum or PlasmaOrdered By: Horace Palafox on 03-23-2022 ALP [Catalytic activity/Vol] 57 U/L 32-92 [facility] Aspartate aminotransferase [ Enzymatic activity/volume] in Serum or PlasmaOrdered By: Horace Palafox on 03-23-2022 AST [Catalytic activity/Vol] 24 U/L 10-42 [facility] Bilirubin.total [Mass/volume ] in Serum or PlasmaOrdered By: Horace Palafox on 03-23-2022 Bilirubin [Mass/Vol] 0.5 mg/dL 0.3-1.[address] [facility] Complete Blood Count Auto Di ffon 03-23-2022 Basophils (Bld) [#/Vol] 0.1 10*3/uL Normal 0.0-0.2 [facility] Comment on above: Result Comment: PERF ORMED BY: [place] [address] PATHOLOGIST RETORT ENGINEER CHELSY BHAGAT M.D. Performed By: #### B ILID, MG, CMP #### [address] Basophils/100 WBC (Bld) 1.1 % Normal . [facility] Comment on above: Performed By: #### B ILID, MG, CMP #### [address] Eosinophils (Bld) [#/Vol] 0.5 10*3/uL High 0.0-0.45 [facility] Comment on above: Performed By: #### B ILID, MG, CMP #### [address] Eosinophils/100 WBC (Bld) 6.3 % Normal . [facility] Comment on above: Performed By: #### B ILID, MG, CMP #### [address] Erythrocyte distribution width (RBC) [Ratio] 14.0 % Normal 12.0-14.8 [facility] Comment on above: Performed By: #### B ILID, MG, CMP #### [address] Hematocrit (Bld) [Volume fraction] 31.6 % Low 38.8-50.0 [facility] Comment on above: Performed By: #### B ILID, MG, CMP #### [facility] [address] [place] [address] Hemoglobin (Bld) [Mass/Vol] 10.4 g/dL Low 13.0-17.0 [facility] Comment on above: Performed By: #### B ILID, MG, CMP #### [place] [address] [place] Lymphocytes (Bld) [#/Vol] 1.3 10*3/uL Normal 1.00-4.8 [facility] Comment on above: Performed By: #### B ILID MG, CMP #### [address] Lymphocytes/100 WBC (Bld) 16.6 % Normal . [facility] Comment on above: Performed By: #### B ILID MG, CMP #### [address] MCH (RBC) [Entitic mass] 29.6 pg Normal 27.5-35.2 [facility] Comment on above: Performed By: #### B ILIMehdi MG, CMP #### [address] MCV (RBC) [Entitic vol] 90.2 fL Normal 83.5-101 [facility] Comment on above: Performed By: #### B ILID MG, CMP #### [address] Mean Corpuscular HGB Conc 32.8 g/dL Normal 32.5-35.6 [facility] Comment on above: Performed By: #### B ILID MG, CMP #### [address] Monocytes (Bld) [#/Vol] 1.1 10*3/uL High 0.0-0.8 [facility] Comment on above: Performed By: #### B ILID, MG, CMP #### [place] [address] [place] Monocytes/100 WBC (Bld) 14.2 % Normal . [facility] Comment on above: Performed By: #### B ILID, MG, CMP #### [address] Neutrophils (Bld) [#/Vol] 4.9 10*3/uL Normal 1.8-7.7 [facility] Comment on above: Performed By: #### B ILID, MG, CMP #### [facility] [address] Neutrophils/100 WBC (Bld) 61.8 % Normal . [facility] Comment on above: Performed By: #### B ILID, MG, CMP #### [facility] [address] NRBC% 0.0 /100{WBC} Normal 0-0.5 [facility] Comment on above: Performed By: #### B ILID, MG, CMP #### [facility] [address] Platelet mean volume (Bld) [Entitic vol] 8.4 fL Normal 6.6-10.1 [facility] Comment on above: Performed By: #### B ILID, MG, CMP #### [address] Platelets (Bld) [#/Vol] 208 10*3/uL Normal 150-450 [facility] Comment on above: Performed By: #### B ILID, MG, CMP #### [address] RBC (Bld) [#/Vol] 3.50 10*6/uL Low 3.90-5.[address] [facility] Comment on above: Performed By: #### B ILID, MG, CMP #### [address] WBC (Bld) [#/Vol] 7.9 10*3/uL Normal 4.1-10.5 [facility] Comment on above: Performed By: #### B ILID, MG, CMP #### [address] Comprehensive Metabolic Pane jas 03-23-2022 Albumin [Mass/Vol] 2.4 g/dL Low 3.2-5.5 [facility] Comment on above: Performed By: #### B ILID, MG, CMP #### [address] Albumin/Globulin [Mass ratio] 0.9 {ratio} Normal [facility] Comment on above: Performed By: #### B ILID, MG, CMP #### [facility] [address] ALP [Catalytic activity/Vol] 57 U/L Normal 32-92 [facility] Comment on above: Performed By: #### B ILID, MG, CMP #### [facility] [address] ALT [Catalytic activity/Vol] 11 U/L Normal 10-60 [facility] Comment on above: Performed By: #### B ILID, MG, CMP #### [facility] [address] Anion gap [Moles/Vol] 8.4 mmol/L Normal 6.0-15.0 [facility] Comment on above: Performed By: #### B ILID, MG, CMP #### [facility] [address] AST [Catalytic activity/Vol] 24 U/L Normal 10-42 [facility] Comment on above: Performed By: #### B ILID, MG, CMP #### [facility] [address] Bilirubin [Mass/Vol] 0.5 mg/dL Normal 0.3-1.[address] [facility] Comment on above: Performed By: #### B ILID, MG, CMP #### [facility] [address] Calcium [Mass/Vol] 8.1 mg/dL Low 8.2-10.2 [facility] Comment on above: Performed By: #### B ILID, MG, CMP #### [facility] [address] [place] [address] [place] Chloride [Moles/Vol] 103 mmol/L Normal 95-[address] [facility] Comment on above: Performed By: #### B ILID, MG, CMP #### [facility] [address] [place] [address] [place] CO2 [Moles/Vol] 26.4 mmol/L Normal 22.0-30.0 [facility] Comment on above: Performed By: #### B ILID, MG, CMP #### [facility] [address] Creatinine [Mass/Vol] 0.85 mg/dL Normal 0.64-1.27 [facility] Comment on above: Performed By: #### B ILID, MG, CMP #### [facility] [address] [place] [address] Creatinine Clr Calc Pharmacy 72.84 [facility] Comment on above: Performed By: #### B ILID, MG, CMP #### [facility] [address] Estimated GFR ( Altagracia > 60 [facility] Comment on above: Result Comment: GFR estimated reference range: According to KDOQI guidelines, <60 ml/min/1.73m2 is sufficient to diagnose a patient with chronic kidney disease. Performed By: #### B ILID, MG, CMP #### [address] Estimated GFR (Non- Am > 60 [facility] Comment on above: Performed By: #### B ILID, MG, CMP #### [address] Globulin (S) [Mass/Vol] 2.8 g/dL [facility] Comment on above: Performed By: #### B ILID, MG, CMP #### [facility] [address] [place] [address] Glucose [Mass/Vol] 110 mg/dL High 70-100 [facility] Comment on above: Result Comment: [place] om Glucose Reference Range is dependent on time and content of last meal. Glucose of more than 200 mg/dL in a nonstressed, ambulatory subject supports the diagnosis of Diabetes Mellitus. ADA recommended reference range Performed By: #### B ILID, MG, CMP #### [address] Potassium [Moles/Vol] 3.8 mmol/L Normal 3.5-5.1 [facility] Comment on above: Performed By: #### B ILID, MG, CMP #### [facility] [address] Protein [Mass/Vol] 5.2 g/dL Low 6.1-7.9 [facility] Comment on above: Performed By: #### B ILID, MG, CMP #### [facility] [address] Sodium [Moles/Vol] 134 mmol/L Low 136-146 [facility] Comment on above: Performed By: #### B ILID, MG, CMP #### [facility] [address] Urea nitrogen [Mass/Vol] 9 mg/dL Normal 9-23 [facility] Comment on above: Performed By: #### B ILID, MG, CMP #### [facility] [address] Globulin Calc (S) [Mass/Vol] Ordered By: Horace Palafox on 03-23-2022 Globulin (S) [Mass/Vol] 2.8 g/dL [facility] Prealbuminon 03-23-2022 Prealbumin [Mass/Vol] 12.0 mg/dL Low 18.0-38.0 [facility] Comment on above: Result Comment: PERF ORMED BY: [place] [address] PATHOLOGIST RETORT ENGINEER CHELSY BHAGAT M.D. Performed By: #### B ILID, MG, CMP #### [facility] [address] [place] [address] [place] Prealbumin [Mass/volume] in Serum or PlasmaOrdered By: Horace Palafox on 03-23-2022 Prealbumin [Mass/Vol] 12.0 mg/dL 18.0-38.0 [facility] Protein [Mass/volume] in Ser um or PlasmaOrdered By: Horace Palafox on 03-23-2022 Protein [Mass/Vol] 5.2 g/dL 6.1-7.9 [facility] Serum or plasma alanine miranda otransferase measurement without P-5'-P (enzymatic activiOrdered By: Horace Palafox on 03-23-2022 ALT No additional P-5'-P [Catalytic activity/Vol] 11 U/L 10-60 [facility] Serum or plasma albumin/glob ulin mass ratioOrdered By: Horace Palafox on 03-23-2022 Albumin/Globulin [Mass ratio] 0.9 {ratio} [facility] Lab Reportson 03-15-2022 Lab Reports [id number]:127 Normal [facility] Lab Reports [id number]:127 Normal [facility] Lab Reports [id number]:127 Normal [facility] Lab Reports [id number]:127 Normal [facility] Lab Reports [id number]:127 Normal [facility] CULTURE URINEon 03-14-2022 CULTURE URINE Isolate [...] R F Ciprofloxacin 2 I F Normal [facility] Comment on above: Performed By: #### U RCX #### [facility] [address] [place] [address] Dr. Chapin Beck UA RANDOMon 03-10-2022 Bilirubin Ql (U) Negative Normal NEGATIVE [facility] Comment on above: Performed By: #### G ENTR #### [facility] [address] [place] [address] Dr. Chapin Beck Clarity (U) CLEAR Normal CLEAR [facility] Comment on above: Performed By: #### G ENTR #### [facility] [address] [place] [address] Dr. Chapin Beck Color (U) YELLOW Normal YELLOW [facility] Comment on above: Performed By: #### G ENTR #### [facility] [address] [place] [address] Dr. Chapin Beck Glucose Ql (U) Negative Normal NEGATIVE [facility] Comment on above: Performed By: #### G ENTR #### [facility] [address] [place] [address] Dr. Chapin Beck Hemoglobin Ql (U) Negative Normal NEGATIVE [facility] Comment on above: Performed By: #### G ENTR #### [facility] [address] [place] [address] Dr. Chapin Beck Ketones Ql (U) Negative Normal NEGATIVE [facility] Comment on above: Performed By: #### G ENTR #### [facility] [address] [place] [address] Dr. Chapin Beck LEUKOCYTES Negative Normal NEGATIVE [facility] Comment on above: Performed By: #### G ENTR #### [facility] [address] [place] [address] Dr. Chapin Beck Nitrite Ql (U) Positive Abnormal NEGATIVE [facility] Comment on above: Performed By: #### G ENTR #### [facility] [address] [place] [address] Dr. Chapin Beck pH (U) 5.5 [pH] Normal 5-9 [facility] Comment on above: Performed By: #### G ENTR #### [facility] [address] [place] [address] Dr. Chapin Beck SPEC GRAVITY <=1.005 Abnormal 1.005-<=1. 025 [facility] Comment on above: Performed By: #### G ENTR #### [facility] [address] [place] [address] Dr. Chapin Beck UA PROTEIN Negative Normal NEGATIVE/ TRACE [facility] Comment on above: Performed By: #### G ENTR #### [facility] [address] [place] [address] Dr. Chapin Beck Urobilinogen Qn (U) 0.2 {Sami'U}/dL Normal 0.2 - 1. 0 [facility] Comment on above: Performed By: #### G ENTR #### [facility] [address] [place] [address] Dr. Chapin Beck Patient Letter FTon 2022 Patient Letter [facility] (Inserted Image. Archana ble to display) March 02, [address] [place] [address] To whom it may concern, Angella Pradhan, is scheduled for hip replacement surgery at [facility], with Dr. Arvizu. Patient is surgically [...] [facility] FAX: SAV Calvert Normal [facility] Residential Recordson 02-25 Residential Records [id number]:127 Normal [facility] Residential Records [id number]:127 Normal [facility] CULTURE URINEon 02-22-2022 CULTURE URINE Isolate [...] Trimethoprim/Sulfamethoxaz ole >=320 R F Normal [facility] Comment on above: Performed By: #### B #### [facility] [address] [address] [address] Chapin Beck Ambulatory Visit Summaryon 0 [...] with BOSTON DUMONT, ALCON Glover When: Where: [address] [place], [place] [id number]- Medications What How Much When Instructions Unchanged [...] obstruction High cholesterol Incomplete emptying of bladder NC (myocardial infarction) Education Materials Benign Prostatic Hyperplasia Benign prostatic hyperplasia (BPH) is (more content not included)... Normal [facility] Residential Recordson 02-19 Residential Records [id number]:127 [facility] Home Records [id number]:127 [facility] Patient Educationon 02-19-19 Patient Education Urology Benign [...] Follow these instructions at home: ? Take jmwy-bah-mjrnajv and prescription medicines only as told by [...] You d (more content not included)... Normal [facility] Urology Office/Clinic Noteon 02-19-2022 Urology Office/Clinic [...] started on prophylactic abx. Daughter states [facility] is going to obtain a urine sample [...] with 500 mL of urine and had Ghotra placed in hospital over a year ago. Per previous note, pt. was to be scheduled for Cysto/Urodynamics following hip surgery. Follow-up With When Contact Information BOSTON DUMONT, Antoine Morton, [place] [id number]- Additional Instructions: Patient Education Benign Prostatic Hyperplasia I, Nellie Li, personally scribed for Dr. Mead on 02/19/2022 10:07:43. . Documentation recorded by the scribe, Nellie Li, accurately reflects the services(s) I performed and decisions made by me. Authenticated by Dr. Mead on 02/19/2022 10:18:18. Problem List/Past Medical History Ongoing Arthritis BPH with urinary obstruction High cholesterol Incomplete emptying of bladder NC (myocardial infarction) Historical No qualifying data Procedure/Surgical [...] Daily levETIRA (more content not included)... Normal [facility] Comment on above: Result Comment: Elec [...] Ticarcillin R F Tobramycin R F Normal [facility] Comment on above: Performed By: #### U RCX #### [facility] [address] [place] [address] Dr. Chapin Beck CULTURE URINEon 12-23-2021 CULTURE [...] Amikacin I F Meropenem S F Normal [facility] Comment on above: Performed By: #### U RCX #### [facility] [address] [place] [address] Dr. Chapin Beck Covid-19 PCR (CVDTB)on 12-08 SARS-CoV-2 (COVID-19) RNA VITA+probe Ql (Unsp spec) Not detected Normal NOT DETECTED [facility] Comment on above: Result Comment: This test is not yet approved or cleared by the [place] FDA. When there are no FDA-approved or cleared tests available, and other criteria are met, FDA can make tests available under an emergency access mechanism called an Emergency Use Authorization (EUA). The EUA for this test is supported by the Vp Client Services of Health and Human Service's (HHS's) declaration [...] SARS-CoV-2. Performed By: #### U AMIC #### [facility] [address] [place] [address] Dr. Chapin Beck UA RANDOM W/MICROSCOPICon BACTERIA SMALL Abnormal NONE SEEN [facility] Comment on above: Performed By: #### U AMIC #### [facility] [address] [place] [address] Dr. Chapin Beck Bilirubin Ql (U) Negative Normal NEGATIVE [facility] Comment on above: Performed By: #### U AMIC #### [facility] [address] [place] [address] Dr. Chapin Beck CAST NONE SEEN Normal NONE SEEN [facility] Comment on above: Performed By: #### U AMIC #### [facility] [address] [place] [address] Dr. Chapin Beck Clarity (U) CLEAR Normal CLEAR [facility] Comment on above: Performed By: #### U AMIC #### [facility] [address] [place] [address] Dr. Chapin Beck Color (U) YELLOW Normal YELLOW [facility] Comment on above: Performed By: #### U AMIC #### [facility] [address] [place] [address] Dr. Chapin Beck Crystals LM Nom (Urine sed) NONE SEEN Normal NONE SEEN [facility] Comment on above: Performed By: #### U AMIC #### [facility] [address] [place] [address] Dr. Chapin Beck Epithelial cells LM Ql (Urine sed) RARE Normal NONE SEEN /RARE [facility] Comment on above: Performed By: #### U AMIC #### [facility] [address] [place] [address] Dr. Chapin Beck Glucose Ql (U) Negative Normal NEGATIVE [facility] Comment on above: Performed By: #### U AMIC #### [facility] [address] [address] [address] Chapin Beck Hemoglobin Ql (U) Negative Normal NEGATIVE [facility] Comment on above: Performed By: #### U AMIC #### [facility] [address] [place] [address] Dr. Chapin Beck Ketones Ql (U) Negative Normal NEGATIVE [facility] Comment on above: Performed By: #### U AMIC #### [facility] [address] [place] [address] Dr. Chapin Beck LEUKOCYTES Negative Normal NEGATIVE [facility] Comment on above: Performed By: #### U AMIC #### [facility] [address] [place] [address] Dr. Chapin Beck MUCOUS NONE SEEN Normal NONE SEEN [facility] Comment on above: Performed By: #### U AMIC #### [facility] [address] [place] [address] Dr. Chapin Beck Nitrite Ql (U) Positive Abnormal NEGATIVE [facility] Comment on above: Performed By: #### U AMIC #### [facility] [address] [place] [address] Dr. Chapin Beck pH (U) 5.5 [pH] Normal 5-9 [facility] Comment on above: Performed By: #### U AMIC #### [facility] [address] [address] [address] Chapin Beck RBC NONE SEEN Abnormal 0-2 [facility] Comment on above: Performed By: #### U AMIC #### [facility] [address] [place] [address] Dr. Chapin Beck SPEC GRAVITY 1.025 Normal 1.005-<=1. 025 [facility] Comment on above: Performed By: #### U AMIC #### [facility] [address] [address] [address] Chapin Beck UA PROTEIN Negative Normal NEGATIVE/ TRACE [facility] Comment on above: Performed By: #### U AMIC #### [facility] [address] [place] [address] Dr. Chapin Beck Urobilinogen Qn (U) 0.2 {Sami'U}/dL Normal 0.2 - 1. 0 [facility] Comment on above: Performed By: #### U AMIC #### [facility] [address] [place] [address] Dr. Chapin Beck WBC 2-5 Abnormal NONE SEEN [facility] Comment on above: Performed By: #### U AMIC #### [facility] [address] [place] [address] Dr. Chapin Beck UA RANDOMon 12-15-2021 Bilirubin Ql (U) Negative Normal NEGATIVE [facility] Comment on above: Performed By: #### B MP #### [facility] [address] [place] [address] Dr. Chapin Beck Clarity (U) CLEAR Normal CLEAR [facility] Comment on above: Performed By: #### B MP #### [facility] [address] [place] [address] Dr. Chapin Beck Color (U) LT. YELLOW Normal YELLOW [facility] Comment on above: Performed By: #### B MP #### [facility] [address] [place] [address] Dr. Chapin Beck Glucose Ql (U) Negative Normal NEGATIVE [facility] Comment on above: Performed By: #### B MP #### [facility] [address] [place] [address] Dr. Chapin Beck Hemoglobin Ql (U) Negative Normal NEGATIVE [facility] Comment on above: Performed By: #### B MP #### [facility] [address] [place] [address] Dr. Chapin Beck Ketones Ql (U) Negative Normal NEGATIVE [facility] Comment on above: Performed By: #### B MP #### [facility] [address] [place] [address] Dr. Chapin Beck LEUKOCYTES SMALL Abnormal NEGATIVE [facility] Comment on above: Performed By: #### B MP #### [facility] [address] [place] [address] Dr. Chapin Beck Nitrite Ql (U) Positive Abnormal NEGATIVE [facility] Comment on above: Performed By: #### B MP #### [facility] [address] [place] [address] Dr. Chapin Beck pH (U) 6.0 [pH] Normal 5-9 [facility] Comment on above: Performed By: #### B MP #### [facility] [address] [place] [address] Dr. Chapin Beck SPEC GRAVITY 1.020 Normal 1.005-<=1. 025 [facility] Comment on above: Performed By: #### B MP #### [facility] [address] [place] [address] Dr. Chapin Beck UA PROTEIN Negative Normal NEGATIVE/ TRACE [facility] Comment on above: Performed By: #### B MP #### [facility] [address] [place] [address] Dr. Chapin Beck Urobilinogen Qn (U) 0.2 {Sami'U}/dL Normal 0.2 - 1. 0 [facility] Comment on above: Performed By: #### B MP #### [facility] [address] [place] [address] Dr. Chapin Beck URINE MICROSCOPIC ONLYon BACTERIA MODERATE Abnormal NONE SEEN [facility] Comment on above: Performed By: #### U AMIC #### [facility] [address] [place] [address] Dr. Chapin Beck Bacteria identified Cx Nom (U) CX ALREADY ORDERED Normal [facility] Comment on above: Performed By: #### U AMIC #### [facility] [address] [place] [address] Dr. Chapin Beck CAST NONE SEEN Normal NONE SEEN [facility] Comment on above: Performed By: #### U AMIC #### [facility] [address] [address] [address] Chapin Beck Crystals LM Nom (Urine sed) NONE SEEN Normal NONE SEEN [facility] Comment on above: Performed By: #### U AMIC #### [facility] [address] [place] [address] Dr. Chapin Beck Epithelial cells LM Ql (Urine sed) FEW Abnormal NONE SEEN /RARE [facility] Comment on above: Performed By: #### U AMIC #### [facility] [address] [address] [address] Chapin Beck MUCOUS NONE SEEN Normal NONE SEEN [facility] Comment on above: Performed By: #### U AMIC #### [facility] [address] [place] [address] Dr. Chapin Beck RBC NONE SEEN Abnormal 0-2 [facility] Comment on above: Performed By: #### U AMIC #### [facility] [address] [place] [address] Dr. Chapin Beck WBC 5-10 Abnormal NONE SEEN [facility] Comment on above: Performed By: #### U AMIC #### [facility] [address] [place] [address] Dr. Chapin Beck UA RANDOM W/MICROSCOPICon BACTERIA SMALL Abnormal NONE SEEN [facility] Comment on above: Performed By: #### U AMIC #### [facility] [address] [place] [address] Dr. Chapin Beck Bilirubin Ql (U) Negative Normal NEGATIVE [facility] Comment on above: Performed By: #### U AMIC #### [facility] [address] [place] [address] Dr. Chapin Beck CAST NONE SEEN Normal NONE SEEN [facility] Comment on above: Performed By: #### U AMIC #### [facility] [address] [place] [address] Dr. Chapin Beck Clarity (U) CLEAR Normal CLEAR [facility] Comment on above: Performed By: #### U AMIC #### [facility] [address] [place] [address] Dr. Chapin Beck Color (U) LT. YELLOW Normal YELLOW [facility] Comment on above: Performed By: #### U AMIC #### [facility] [address] [address] [address] Chapin Beck Crystals LM Nom (Urine sed) NONE SEEN Normal NONE SEEN [facility] Comment on above: Performed By: #### U AMIC #### [facility] [address] [address] [address] Chapin Beck Epithelial cells LM Ql (Urine sed) FEW Abnormal NONE SEEN /RARE [facility] Comment on above: Performed By: #### U AMIC #### [facility] [address] [address] [address] Chapin Beck Glucose Ql (U) Negative Normal NEGATIVE [facility] Comment on above: Performed By: #### U AMIC #### [facility] [address] [place] [address] Dr. Chapin Beck Hemoglobin Ql (U) Negative Normal NEGATIVE [facility] Comment on above: Performed By: #### U AMIC #### [facility] [address] [place] [address] Dr. Chapin Beck Ketones Ql (U) Negative Normal NEGATIVE [facility] Comment on above: Performed By: #### U AMIC #### [facility] [address] [place] [address] Dr. Chapin Beck LEUKOCYTES SMALL Abnormal NEGATIVE [facility] Comment on above: Performed By: #### U AMIC #### [facility] [address] [address] [address] Chapin Beck MUCOUS NONE SEEN Normal NONE SEEN [facility] Comment on above: Performed By: #### U AMIC #### [facility] [address] [address] [address] Chapin Beck Nitrite Ql (U) Positive Abnormal NEGATIVE [facility] Comment on above: Performed By: #### U AMIC #### [facility] [address] [place] [address] Dr. Chapin Beck pH (U) 6.0 [pH] Normal 5-9 [facility] Comment on above: Performed By: #### U AMIC #### [facility] [address] [address] [address] Chapin Beck RBC NONE SEEN Abnormal 0-2 [facility] Comment on above: Performed By: #### U AMIC #### [facility] [address] [address] [address] Chapin Beck SPEC GRAVITY 1.020 Normal 1.005-<=1. 025 [facility] Comment on above: Performed By: #### U AMIC #### [facility] [address] [address] [address] Chapin Beck UA PROTEIN Negative Normal NEGATIVE/ TRACE [facility] Comment on above: Performed By: #### U AMIC #### [facility] [address] [address] [address] Chapin Beck Urobilinogen Qn (U) 0.2 {Sami'U}/dL Normal 0.2 - 1. 0 [facility] Comment on above: Performed By: #### U AMIC #### [facility] [address] [address] [address] Chapin Beck WBC 5-10 Abnormal NONE SEEN [facility] Comment on above: Performed By: #### U AMIC #### [facility] [address] [address] [address] Chapin Beck Basic Metabolic Panelon 10-3 Anion gap [Moles/Vol] 13.1 mmol/L Normal 6.0-15.0 [facility] Comment on above: Performed By: #### C OVID-19 BECKY SOFIANEG #### [facility] [address] [place] [address] Calcium [Mass/Vol] 9.0 mg/dL Normal 8.2-10.2 [facility] Comment on above: Result Comment: PERF ORMED BY: [place] [address] PATHOLOGIST RETORT ENGINEER CHELSY BHAGAT M.D. Performed By: #### C OVID-19 BECKY, SOFIANEG #### [facility] [address] Chloride [Moles/Vol] 100 mmol/L Normal 95-[address] [facility] Comment on above: Performed By: #### C OVID-19 BECKY, SOFIANEG #### [facility] [address] CO2 [Moles/Vol] 26.7 mmol/L Normal 22.0-30.0 [facility] Comment on above: Performed By: #### C OVID-19 BECKY, SOFIANEG #### [facility] [address] Creatinine [Mass/Vol] 0.69 mg/dL Normal 0.64-1.27 [facility] Comment on above: Performed By: #### C OVID-19 BECKY SOFIANEG #### [address] Estimated GFR ( Altagracia > 60 [facility] [facility] Comment on above: Result Comment: GFR estimated reference range: According to KDOQI guidelines, <60 ml/min/1.73m2 is sufficient to diagnose a patient with chronic kidney disease. Performed By: #### C OVID-19 BECKY SOFIANEG #### [facility] [address] [place] [address] Estimated GFR (Non- Am > 60 [facility] Comment on above: Performed By: #### C OVID-19 BECKY SOFIANEG #### [facility] [address] [place] [address] [place] Glucose [Mass/Vol] 104 mg/dL High 70-100 [facility] Comment on above: Result Comment: [place] Glucose Reference Range is dependent on time and content of last meal. Glucose of more than 200 mg/dL in a nonstressed, ambulatory subject supports the diagnosis of Diabetes Mellitus. ADA recommended reference range Performed By: #### C OVID-19 BECKY, SOFIANEG #### [address] Potassium [Moles/Vol] 4.8 mmol/L Normal 3.5-5.1 [facility] Comment on above: Performed By: #### C OVID-19 BECKY, SOFIANEG #### [facility] [address] Sodium [Moles/Vol] 135 mmol/L Low 136-146 [facility] Comment on above: Performed By: #### C OVID-19 BECKY, SOFIANEG #### [facility] [address] Urea nitrogen [Mass/Vol] 18 mg/dL Normal 9- [facility] Comment on above: Performed By: #### C OVID-19 BECKY, SOFIANEG #### [facility] [address] [place] [address] [place] Basophils Auto (Bld) [#/Vol] Ordered By: Soham Cash on 12-07-2021 Basophils (Bld) [#/Vol] 0.1 10*3/uL 0.0-0.2 [facility] Basophils/100 WBC Auto (Bld) Ordered By: Soham Cash on 12-07-2021 Basophils/100 WBC (Bld) 0.7 % . [facility] Complete Blood Count Auto Di ffon 12-07-2021 Basophils (Bld) [#/Vol] 0.1 10*3/uL Normal 0.0-0.2 [facility] Comment on above: Result Comment: PERF ORMED BY: [facility] [address] [place] [address] PATHOLOGIST RETORT ENGINEER CHELSY BHAGAT M.D. Performed By: #### C OVID-19 BECKY, SOFIANEG #### [facility] [address] Basophils/100 WBC (Bld) 0.7 % Normal . [facility] Comment on above: Performed By: #### C OVID-19 BECKY, SOFIANEG #### [facility] [address] Eosinophils (Bld) [#/Vol] 0.4 10*3/uL Normal 0.0-0.45 [facility] Comment on above: Performed By: #### C OVID-19 BECKY, SOFIANEG #### [facility] [address] [place] [address] Eosinophils/100 WBC (Bld) 5.8 % Normal . [facility] Comment on above: Performed By: #### C OVID-19 BECKY, SOFIANEG #### [facility] [address] Erythrocyte distribution width (RBC) [Ratio] 15.9 % High 12.0-14.8 [facility] Comment on above: Performed By: #### C OVID-19 BECKY, SOFIANEG #### [address] Hematocrit (Bld) [Volume fraction] 43.2 % Normal 38.8-50.0 [facility] Comment on above: Performed By: #### C OVID-19 BECKY, SOFIANEG #### [address] Hemoglobin (Bld) [Mass/Vol] 14.1 g/dL Normal 13.0-17.0 [facility] Comment on above: Performed By: #### C OVID-19 BECKY, SOFIANEG #### [address] Lymphocytes (Bld) [#/Vol] 2.0 10*3/uL Normal 1.00-4.8 [facility] Comment on above: Performed By: #### C OVID-19 BECKY, SOFIANEG #### [place] [address] [place] Lymphocytes/100 WBC (Bld) 26.7 % Normal . [facility] Comment on above: Performed By: #### C OVID-19 BECKY, SOFIANEG #### [facility] [address] [place] [address] MCH (RBC) [Entitic mass] 28.4 pg Normal 27.5-35.2 [facility] Comment on above: Performed By: #### C OVID-19 BCEKY, SOFIANEG #### [facility] [address] [place] [address] MCV (RBC) [Entitic vol] 86.6 fL Normal 83.5-101 [facility] Comment on above: Performed By: #### C OVID-19 BECKY, SOFIANEG #### [facility] [address] Mean Corpuscular HGB Conc 32.8 g/dL Normal 32.5-35.6 [facility] Comment on above: Performed By: #### C OVID-19 BECKY, SOFIANEG #### [facility] [address] [place] [address] [place] Monocytes (Bld) [#/Vol] 1.0 10*3/uL High 0.0-0.8 [facility] Comment on above: Performed By: #### C OVID-19 BECKY, SOFIANEG #### [facility] [address] [place] [address] [place] Monocytes/100 WBC (Bld) 13.8 % Normal . [facility] Comment on above: Performed By: #### C OVID-19 BECKY, SOFIANEG #### [facility] [address] [place] [address] [place] Neutrophils (Bld) [#/Vol] 4.0 10*3/uL Normal 1.8-7.7 [facility] Comment on above: Performed By: #### C OVID-19 BECKY, SOFIANEG #### [facility] [address] [place] [address] [place] Neutrophils/100 WBC (Bld) 53.0 % Normal . [facility] Comment on above: Performed By: #### C OVID-19 BECKY, SOFIANEG #### [facility] [address] [place] [address] [place] Nucleated RBC/100 WBC (Bld) [Ratio] 0.1 % Normal 0-0.5 [facility] Comment on above: Performed By: #### C OVID-19 BECKY, SOFIANEG #### [facility] [address] [place] [address] [place] Platelet mean volume (Bld) [Entitic vol] 7.8 fL Normal 6.6-10.1 [facility] Comment on above: Performed By: #### C OVID-19 BECKY, SOFIANEG #### [facility] [address] [place] [address] [place] Platelets (Bld) [#/Vol] 154 10*3/uL Normal 150-450 [facility] Comment on above: Performed By: #### C OVID-19 BECKY, SOFIANEG #### [facility] [address] RBC (Bld) [#/Vol] 4.99 10*6/uL Normal 3.90-5.[address] [facility] Comment on above: Performed By: #### C OVID-19 BECKY, SOFIANEG #### [facility] [address] [place] [address] [place] WBC (Bld) [#/Vol] 7.5 10*3/uL Normal 4.5-11.0 [facility] Comment on above: Performed By: #### C OVID-19 BECKY, SOFIANEG #### [facility] [address] Creatinine and Glomerular fi ltration rate.predicted panel (S/P/Bld)Ordered By: Soham Cash on 12-07-2021 Creatinine [Mass/Vol] 0.69 mg/dL 0.64-1.27 [facility] Eosinophils Auto (Bld) [#/Vo l]Ordered By: Soham Cash on 12-07-2021 Eosinophils (Bld) [#/Vol] 0.4 10*3/uL 0.0-0.45 [facility] Eosinophils/100 WBC Auto (Bl d)Ordered By: Soham Cash on 12-07-2021 Eosinophils/100 WBC (Bld) 5.8 % . [facility] Erythrocyte distribution wid th Auto (RBC) [Ratio]Ordered By: Soham Cash on 12-07-2021 Erythrocyte distribution width (RBC) [Ratio] 15.9 % 12.0-14.8 [facility] Estimated glomerular filtrat ion rate (GFR) non- AmericanOrdered By: Soham Cash on 12-07-2021 GFR/1.73 sq M.predicted among non-blacks MDRD (S/P/Bld) [Vol rate/Area] > 60 mL/Min [facility] Hematocrit Auto (Bld) [Volum e fraction]Ordered By: Soham Cash on 12-07-2021 Hematocrit (Bld) [Volume fraction] 43.2 % 38.8-50.0 [facility] Hemoglobin [Mass/volume] in BloodOrdered By: Soham Cash on 12-07-2021 Hemoglobin (Bld) [Mass/Vol] 14.1 g/dL 13.0-17.0 [facility] Laboratory - Hematology and Cell countsOrdered By: Soham Cash on 12-07-2021 Nucleated RBC/100 WBC (Bld) [Ratio] 0.1 % 0-0.5 [facility] Leukocytes [#/volume] in Blo od by Automated countOrdered By: Soham Cash on 12-07-2021 WBC (Bld) [#/Vol] 7.5 10*3/uL 4.5-11.0 [facility] Lymphocytes Auto (Bld) [#/Vo l]Ordered By: Soham Cash on 12-07-2021 Lymphocytes (Bld) [#/Vol] 2.0 10*3/uL 1.00-4.8 [facility] Lymphocytes/100 WBC Auto (Bl d)Ordered By: Soham Cash on 12-07-2021 Lymphocytes/100 WBC (Bld) 26.7 % . [facility] MCH Auto (RBC) [Entitic mass ]Ordered By: Soham Cash on 12-07-2021 MCH (RBC) [Entitic mass] 28.4 pg 27.5-35.2 [facility] MCHC Auto (RBC) [Mass/Vol]Or dered By: Soham Cash on 12-07-2021 MCHC (RBC) [Mass/Vol] 32.8 g/dL 32.5-35.6 [facility] MCV Auto (RBC) [Entitic vol] Ordered By: Soham Cash on 12-07-2021 MCV (RBC) [Entitic vol] 86.6 fL 83.5-101 [facility] Monocytes Auto (Bld) [#/Vol] Ordered By: Soham Cash on 12-07-2021 Monocytes (Bld) [#/Vol] 1.0 10*3/uL 0.0-0.8 [facility] Monocytes/100 WBC Auto (Bld) Ordered By: Soham Csah on 12-07-2021 Monocytes/100 WBC (Bld) 13.8 % . [facility] Neutrophils Auto (Bld) [#/Vo l]Ordered By: Soham aCsh on 12-07-2021 Neutrophils (Bld) [#/Vol] 4.0 10*3/uL 1.8-7.7 [facility] Neutrophils/100 WBC Auto (Bl d)Ordered By: Soham Cash on 12-07-2021 Neutrophils/100 WBC (Bld) 53.0 % . [facility] No Panel InformationOrdered By: Soham Cash on 12-07-2021 Estimated GFR () > 60 mL/Min [facility] Comment on above: GFR estimated refere nce range: According to KDOQI guidelines, <60 ml/min/1.73m2 is sufficient to diagnose a patient with chronic kidney disease. Pharmacy Creatinine Clearance (Chem N/A [facility] PST Type and Screenon 2021 ABO and Rh group Nom (Bld) Blood group O Rh(D) positive Normal [facility] Comment on above: Order Comment: Date of Surgery: 20211225 # of PRBC units on hold?: 2 Result Comment: PERF ORMED BY: [facility] [address] [place] [address] PATHOLOGIST RETORT ENGINEER CHELSY BHAGAT M.D. Platelet mean volume Auto (B ld) [Entitic vol]Ordered By: Soham Cash on 12-07-2021 Platelet mean volume (Bld) [Entitic vol] 7.8 fL 6.6-10.1 [facility] Platelets Auto (Bld) [#/Vol] Ordered By: Soham Cash on 12-07-2021 Platelets (Bld) [#/Vol] 154 10*3/uL 150-450 [facility] RBC Auto (Bld) [#/Vol]Ordere d By: Soham Cash on 12-07-2021 RBC (Bld) [#/Vol] 4.99 10*6/uL 3.90-5.[address] [facility] Serum or plasma anion gap de terminationOrdered By: Soham Cash on 12-07-2021 Anion gap [Moles/Vol] 13.1 mmol/L 6.0-15.0 [facility] Serum or plasma calcium kirstie urement (mass/volume)Ordered By: Soham Cash on 12-07-2021 Calcium [Mass/Vol] 9.0 mg/dL 8.2-10.2 [facility] Serum or plasma chloride codie surement (moles/volume)Ordered By: Soham Cash on 12-07-2021 Chloride [Moles/Vol] 100 mmol/L 95-[address] [facility] Serum or plasma glucose kirstie urement (mass/volume)Ordered By: Soham Cash on 12-07-2021 Glucose [Mass/Vol] 104 mg/dL 70-100 [facility] Comment on above: ADA recommended refe rence rangeRandom Glucose Reference Range is dependent on time and content of last meal. Glucose of more than 200 mg/dL in a nonstressed, ambulatory subject supports the diagnosis of Diabetes Mellitus. Serum or plasma potassium me asurement (moles/volume)Ordered By: Soham Cash on 12-07-2021 Potassium [Moles/Vol] 4.8 mmol/L 3.5-5.1 [facility] Serum or plasma sodium measu rement (moles/volume)Ordered By: Soham Cash on 12-07-2021 Sodium [Moles/Vol] 135 mmol/L 136-146 [facility] Serum or plasma total carbon dioxide measurement (moles/volume)Ordered By: Soham Cash on 12-07-2021 CO2 [Moles/Vol] 26.7 mmol/L 22.0-30.0 [facility] Serum or plasma urea nitroge n measurement (mass/volume)Ordered By: Soham Cash on 12-07-2021 Urea nitrogen [Mass/Vol] 18 mg/dL 9-23 [facility] XR hip RT min 2V(w/wo pelvis )*on 12-07-2021 XR hip RT min 2V(w/wo pelvis)* [place] [address] XRay Report Signed Patient: LorneAngella giles MR#: [id number] : 1945 Acct:[id number] Age/Sex: 76 / M ADM Date: 12/07/21 Loc: PS Room: Type: [facility] Attending Dr: Soham Cash Jr, DO Copies [...] Stark Jr., DBetseyOBetsey12/07/2021 3:32 PM Dictation Location: [place] [address] Transcribed By: [facility] 12/07/21 153 Dictated By: Horace Stark Jr, DO 12/07/21 153 Signed By: 12/07/211531 [facility] Consultation Noteon 11-28-19 Consultation Note [id number]:127 Normal [facility] Insurance Correspondence Off iceon 11-27-2021 Insurance Correspondence Office [id number]:127 [facility] Office Visit (Cardiology)on 11-24-2021 Follow-up visit Diagnoses/Problems Assessed CAD (coronary artery disease) (414.00) (I25.10) Former smoker (V15.82) (Z87.891) Quit smokiing 50-60 years-smoked a pipe Hyperlipidemia (272.4) (E78.5) 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 Normal [employer] CBC AUTO DIFFon 10-11-2021 BASO # 0.1 103/ul Normal 0.0-0.1 [facility] Comment on above: Performed By: #### G ENTR #### [facility] [address] [place] [address] Dr. Chapin Beck Basophils/100 WBC (Bld) 0.6 % Normal 0.2-2.0 [facility] Comment on above: Performed By: #### G ENTR #### [facility] [address] [place] [address] Dr. Chapin Beck EO # 0.6 103/ul Normal 0.0-0.7 [facility] Comment on above: Performed By: #### G ENTR #### [facility] [address] [place] [address] Dr. Chapin Beck Eosinophils/100 WBC (Bld) 7.6 % Critically high 0.9-7.0 [facility] Comment on above: Performed By: #### G ENTR #### [facility] [address] [place] [address] Dr. Chapin Beck Erythrocyte distribution width (RBC) [Ratio] 14.5 % Normal 11.0-15.0 [facility] Comment on above: Performed By: #### G ENTR #### [facility] [address] [place] [address] Dr. Chapin Beck Hematocrit (Bld) [Volume fraction] 45.7 % Normal 42.0-54.0 [facility] Comment on above: Performed By: #### G ENTR #### [facility] [address] [place] [address] Dr. Chapin Beck Hemoglobin (Bld) [Mass/Vol] 14.4 g/dL Normal 14.0-18.0 [facility] Comment on above: Performed By: #### G ENTR #### [facility] [address] [place] [address] Dr. Chapin Beck IG # 0.07 10e3/ul Critically high 0.00-0.03 [facility] Comment on above: Performed By: #### G ENTR #### [facility] [address] [place] [address] Dr. Chapin Beck IG % 0.8 % Critically high 0.0-0.5 [facility] Comment on above: Performed By: #### G ENTR #### [facility] [address] [place] [address] Dr. Chapin Beck LYMPH # 2.3 103/ul Normal 1.2-3.8 [facility] Comment on above: Performed By: #### G ENTR #### [facility] [address] [place] [address] Dr. Chapin Beck Lymphocytes/100 WBC (Bld) 27.1 % Normal 20.5-60.0 [facility] Comment on above: Performed By: #### G ENTR #### [facility] [address] [place] [address] Dr. Chapin Beck MANUAL DIFF REQ NO Normal [facility] Comment on above: Performed By: #### G ENTR #### [facility] [address] [place] [address] Dr. Chapin Beck MCH (RBC) [Entitic mass] 26.5 pg Normal 25.9-34.0 [facility] Comment on above: Performed By: #### G ENTR #### [facility] [address] [place] [address] Dr. Chapin Beck MCHC (RBC) [Mass/Vol] 31.5 g/dL Normal 29.9-35.2 [facility] Comment on above: Performed By: #### G ENTR #### [facility] [address] [place] [address] Dr. Chapin Beck MCV (RBC) [Entitic vol] 84.0 fL Normal 80.0-94.0 [facility] Comment on above: Performed By: #### G ENTR #### [facility] [address] [place] [address] Dr. Chapin Beck MONO # 1.2 103/ul Critically high 0.3-0.8 [facility] Comment on above: Performed By: #### G ENTR #### [facility] [address] [place] [address] Dr. Chapin Beck Monocytes/100 WBC (Bld) 14.2 % Critically high 1.7-12.0 [facility] Comment on above: Performed By: #### G ENTR #### [facility] [address] [place] [address] Dr. Chapin Beck NEUT # 4.1 103/ul Normal 1.4-6.5 [facility] Comment on above: Performed By: #### G ENTR #### [facility] [address] [place] [address] Dr. Chapin Beck Neutrophils/100 WBC (Bld) 49.7 % Normal 43.0-75.0 [facility] Comment on above: Performed By: #### G ENTR #### [facility] [address] [place] [address] Dr. Chapin Beck Platelet mean volume (Bld) [Entitic vol] 9.1 fL Critically low 9.5-13.5 [facility] Comment on above: Performed By: #### G ENTR #### [facility] [address] [place] [address] Dr. Chapin Beck PLT 277 103/ul Normal 150-450 [facility] Comment on above: Performed By: #### G ENTR #### [facility] [address] [place] [address] Dr. Chapin Beck RBC 5.44 106/ul Normal 4.70-6.10 [facility] Comment on above: Performed By: #### G ENTR #### [facility] [address] [place] [address] Dr. Chapin Beck WBC 8.3 103/ul Normal 4.0-11.0 [facility] Comment on above: Performed By: #### G ENTR #### [facility] [address] [place] [address] Dr. Chapin Beck PROF CHEM 8 (BAS METB)on Anion gap [Moles/Vol] 12.3 mmol/L Normal [facility] Comment on above: Performed By: #### U AMIC #### [facility] [address] [place] [address] Dr. Chapin Beck Calcium [Mass/Vol] 9.0 mg/dL Normal 8.5-10.1 [facility] Comment on above: Performed By: #### U AMIC #### [facility] [address] [address] [address] Chapin Beck Chloride [Moles/Vol] 105 mmol/L Normal 98-107 [facility] Comment on above: Performed By: #### U AMIC #### [facility] [address] [place] [address] [address] Chapin Beck CO2 [Moles/Vol] 24.7 mmol/L Normal 21.0-32.0 [facility] Comment on above: Performed By: #### U AMIC #### [facility] [address] [place] [address] [address] Chapin Beck Creatinine [Mass/Vol] 0.80 mg/dL Normal 0.70-1.30 [facility] Comment on above: Performed By: #### U AMIC #### [facility] [address] [place] [address] Dr. Chapin Beck EGFR-AF PUERTO RICAN >60 Normal >=60 [facility] Comment on above: Performed By: #### U AMIC #### [facility] [address] [place] [address] [address] Chapin Beck EGFR-NON AF PUERTO RICAN >60 Normal >=60 [facility] Comment on above: Performed By: #### U AMIC #### [facility] [address] [address] [address] Chapin Beck Glucose [Mass/Vol] 96 mg/dL Normal 74-106 [facility] Comment on above: Performed By: #### U AMIC #### [facility] [address] [address] [address] Chapin Beck Potassium [Moles/Vol] 4.0 mmol/L Normal 3.5-5.1 [facility] Comment on above: Performed By: #### U AMIC #### [facility] [address] [address] [address] Chapin Beck Sodium [Moles/Vol] 138 mmol/L Normal 136-145 [facility] Comment on above: Performed By: #### U AMIC #### [facility] [address] [address] [address] Chapin Beck Urea nitrogen [Mass/Vol] 19.0 mg/dL Critically high 7.0-18.0 [facility] Comment on above: Performed By: #### U AMIC #### [facility] [address] [place] [address] [address] Chapin Beck Urea nitrogen/Creatinine [Mass ratio] 23.8 mg/mg Normal [facility] Comment on above: Performed By: #### U AMIC #### [facility] [address] [place] [address] [address] Chapin Beck CBC AUTO DIFFon 10-10-2021 BASO # 0.0 103/ul Normal 0.0-0.1 [facility] Comment on above: Performed By: #### B MP #### [facility] [address] [place] [address] Dr. Chapin Beck Basophils/100 WBC (Bld) 0.6 % Normal 0.2-2.0 [facility] Comment on above: Performed By: #### B MP #### [facility] [address] [place] [address] Dr. Chapin Beck EO # 0.6 103/ul Normal 0.0-0.7 [facility] Comment on above: Performed By: #### B MP #### [facility] [address] [place] [address] Dr. Chapin Beck Eosinophils/100 WBC (Bld) 7.7 % Critically high 0.9-7.0 [facility] Comment on above: Performed By: #### B MP #### [facility] [address] [place] [address] Dr. Chapin Beck Erythrocyte distribution width (RBC) [Ratio] 14.6 % Normal 11.0-15.0 [facility] Comment on above: Performed By: #### B MP #### [facility] [address] [place] [address] Dr. Chapin Beck Hematocrit (Bld) [Volume fraction] 41.6 % Critically low 42.0-54.0 [facility] Comment on above: Performed By: #### B MP #### [facility] [address] [place] [address] Dr. Chapin Beck Hemoglobin (Bld) [Mass/Vol] 13.1 g/dL Critically low 14.0-18.0 [facility] Comment on above: Performed By: #### B MP #### [facility] [address] [address] [address] Chapin Beck IG # 0.05 10e3/ul Critically high 0.00-0.03 [facility] Comment on above: Performed By: #### B MP #### [facility] [address] [place] [address] Dr. Chapin Beck IG % 0.7 % Critically high 0.0-0.5 [facility] Comment on above: Performed By: #### B MP #### [facility] [address] [place] [address] Dr. Chapin Beck LYMPH # 2.3 103/ul Normal 1.2-3.8 [facility] Comment on above: Performed By: #### B MP #### [facility] [address] [place] [address] Dr. Chapin Beck Lymphocytes/100 WBC (Bld) 32.6 % Normal 20.5-60.0 [facility] Comment on above: Performed By: #### B MP #### [facility] [address] [place] [address] Dr. Chapin Beck MANUAL DIFF REQ NO Normal [facility] Comment on above: Performed By: #### B MP #### [facility] [address] [place] [address] Dr. Chapin Beck MCH (RBC) [Entitic mass] 26.8 pg Normal 25.9-34.0 [facility] Comment on above: Performed By: #### B MP #### [facility] [address] [place] [address] Dr. Chapin Beck MCHC (RBC) [Mass/Vol] 31.5 g/dL Normal 29.9-35.2 [facility] Comment on above: Performed By: #### B MP #### [facility] [address] [address] [address] Chapin Beck MCV (RBC) [Entitic vol] 85.1 fL Normal 80.0-94.0 [facility] Comment on above: Performed By: #### B MP #### [facility] [address] [address] [address] Chapin Beck MONO # 1.0 103/ul Critically high 0.3-0.8 [facility] Comment on above: Performed By: #### B MP #### [facility] [address] [address] [address] Chapin Beck Monocytes/100 WBC (Bld) 14.2 % Critically high 1.7-12.0 [facility] Comment on above: Performed By: #### B MP #### [facility] [address] [place] [address] Dr. Chapin Beck NEUT # 3.1 103/ul Normal 1.4-6.5 [facility] Comment on above: Performed By: #### B MP #### [facility] [address] [place] [address] Dr. Chapin Beck Neutrophils/100 WBC (Bld) 44.2 % Normal 43.0-75.0 [facility] Comment on above: Performed By: #### B MP #### [facility] [address] [place] [address] Dr. Chapin Beck Platelet mean volume (Bld) [Entitic vol] 9.2 fL Critically low 9.5-13.5 [facility] Comment on above: Performed By: #### B MP #### [facility] [address] [place] [address] Dr. Chapin Beck PLT 267 103/ul Normal 150-450 [facility] Comment on above: Performed By: #### B MP #### [facility] Laboratory [address] [place] [address] Dr. Chapin Beck RBC 4.89 106/ul Normal 4.70-6.10 [facility] Comment on above: Performed By: #### B MP #### [facility] [address] [place] [address] Dr. Chapin Beck WBC 7.1 103/ul Normal 4.0-11.0 [facility] Comment on above: Performed By: #### B MP #### [facility] [address] [place] [address] Dr. Chapin Beck CULTURE URINEon 10-10-2021 CULTURE [...] F Trimethoprim/Sulfamethoxaz ole >=320 R F Normal [facility] Comment on above: Performed By: #### U RCX #### [facility] [address] [place] [address] Dr. Chapin Beck PROF CHEM 8 (BAS METB)on Anion gap [Moles/Vol] 13.7 mmol/L Normal [facility] Comment on above: Performed By: #### G ENTR #### [facility] [address] [place] [address] Dr. Chapin Beck Calcium [Mass/Vol] 8.7 mg/dL Normal 8.5-10.1 [facility] Comment on above: Performed By: #### G ENTR #### [facility] [address] [place] [address] Dr. Chapin Beck Chloride [Moles/Vol] 105 mmol/L Normal 98-107 [facility] Comment on above: Performed By: #### G ENTR #### [facility] [address] [place] [address] Dr. Chapin Beck CO2 [Moles/Vol] 24.5 mmol/L Normal 21.0-32.0 [facility] Comment on above: Performed By: #### G ENTR #### [facility] [address] [place] [address] Dr. Chapin Beck Creatinine [Mass/Vol] 0.74 mg/dL Normal 0.70-1.30 [facility] Comment on above: Performed By: #### G ENTR #### [facility] [address] [place] [address] Dr. Chapin Beck EGFR-AF PUERTO RICAN >60 Normal >=60 [facility] Comment on above: Performed By: #### G ENTR #### [facility] [address] [place] [address] Dr. Chapin Beck EGFR-NON AF PUERTO RICAN >60 Normal >=60 [facility] Comment on above: Performed By: #### G ENTR #### [facility] [address] [place] [address] Dr. Chapin Beck Glucose [Mass/Vol] 96 mg/dL Normal 74-106 [facility] Comment on above: Performed By: #### G ENTR #### [facility] [address] [place] [address] Dr. Chapin Beck Potassium [Moles/Vol] 4.2 mmol/L Normal 3.5-5.1 [facility] Comment on above: Performed By: #### G ENTR #### [facility] [address] [place] [address] Dr. Chapin Beck Sodium [Moles/Vol] 139 mmol/L Normal 136-145 [facility] Comment on above: Performed By: #### G ENTR #### [facility] [address] [place] [address] Dr. Chapin Beck Urea nitrogen [Mass/Vol] 17.0 mg/dL Normal 7.0-18.0 [facility] Comment on above: Performed By: #### G ENTR #### [facility] [address] [place] [address] Dr. Chapin Beck Urea nitrogen/Creatinine [Mass ratio] 23.0 mg/mg Normal [facility] Comment on above: Performed By: #### G ENTR #### [facility] [address] [place] [address] Dr. Chapin Beck CBC AUTO DIFFon 10-09-2021 BASO # 0.0 103/ul Normal 0.0-0.1 [facility] Comment on above: Performed By: #### U AMIC #### [facility] [address] [place] [address] Dr. Chapin Beck Basophils/100 WBC (Bld) 0.3 % Normal 0.2-2.0 [facility] Comment on above: Performed By: #### U AMIC #### [facility] [address] [address] [address] Chapin Beck EO # 0.5 103/ul Normal 0.0-0.7 [facility] Comment on above: Performed By: #### U AMIC #### [facility] [address] [place] [address] Dr. Chapin Beck Eosinophils/100 WBC (Bld) 7.1 % Critically high 0.9-7.0 [facility] Comment on above: Performed By: #### U AMIC #### [facility] [address] [place] [address] Dr. Chapin Beck Erythrocyte distribution width (RBC) [Ratio] 14.6 % Normal 11.0-15.0 [facility] Comment on above: Performed By: #### U AMIC #### [facility] [address] [place] [address] Dr. Chapin Beck Hematocrit (Bld) [Volume fraction] 40.3 % Critically low 42.0-54.0 [facility] Comment on above: Performed By: #### U AMIC #### [facility] [address] [place] [address] Dr. Chapin Beck Hemoglobin (Bld) [Mass/Vol] 13.0 g/dL Critically low 14.0-18.0 [facility] Comment on above: Performed By: #### U AMIC #### [facility] [address] [place] [address] Dr. Chapin Beck IG # 0.04 10e3/ul Critically high 0.00-0.03 [facility] Comment on above: Performed By: #### U AMIC #### [facility] [address] [place] [address] Dr. Chapin Beck IG % 0.5 % Normal 0.0-0.5 [facility] Comment on above: Performed By: #### U AMIC #### [facility] [address] [place] [address] Dr. Chapin Beck LYMPH # 2.3 103/ul Normal 1.2-3.8 [facility] Comment on above: Performed By: #### U AMIC #### [facility] [address] [place] [address] Dr. Chapin Beck Lymphocytes/100 WBC (Bld) 31.9 % Normal 20.5-60.0 [facility] Comment on above: Performed By: #### U AMIC #### [facility] [address] [place] [address] Dr. Chapin Beck MANUAL DIFF REQ NO Normal [facility] Comment on above: Performed By: #### U AMIC #### [facility] [address] [place] [address] Dr. Chapin Beck MCH (RBC) [Entitic mass] 27.4 pg Normal 25.9-34.0 [facility] Comment on above: Performed By: #### U AMIC #### [facility] [address] [place] [address] Dr. Chapin Beck MCHC (RBC) [Mass/Vol] 32.3 g/dL Normal 29.9-35.2 [facility] Comment on above: Performed By: #### U AMIC #### [facility] [address] [place] [address] Dr. Chapin Beck MCV (RBC) [Entitic vol] 84.8 fL Normal 80.0-94.0 [facility] Comment on above: Performed By: #### U AMIC #### [facility] [address] [place] [address] Dr. Chapin Beck MONO # 0.8 103/ul Normal 0.3-0.8 [facility] Comment on above: Performed By: #### U AMIC #### [facility] [address] [place] [address] Dr. Chapin Beck Monocytes/100 WBC (Bld) 11.2 % Normal 1.7-12.0 [facility] Comment on above: Performed By: #### U AMIC #### [facility] [address] [place] [address] Dr. Chapin Beck NEUT # 3.6 103/ul Normal 1.4-6.5 [facility] Comment on above: Performed By: #### U AMIC #### [facility] [address] [place] [address] Dr. Chapin Beck Neutrophils/100 WBC (Bld) 49.0 % Normal 43.0-75.0 [facility] Comment on above: Performed By: #### U AMIC #### [facility] [address] [place] [address] Dr. Chapin Beck Platelet mean volume (Bld) [Entitic vol] 9.2 fL Critically low 9.5-13.5 [facility] Comment on above: Performed By: #### U AMIC #### [facility] [address] [place] [address] Dr. Chapin Beck PLT 266 103/ul Normal 150-450 [facility] Comment on above: Performed By: #### U AMIC #### [facility] [address] [place] [address] Dr. Chapin Beck RBC 4.75 106/ul Normal 4.70-6.10 [facility] Comment on above: Performed By: #### U AMIC #### [facility] [address] [place] [address] Dr. Chapin Beck WBC 7.3 103/ul Normal 4.0-11.0 [facility] Comment on above: Performed By: #### U AMIC #### [facility] [address] [place] [address] Dr. Chapin Beck PROF CHEM 8 (BAS METB)on Anion gap [Moles/Vol] 12.0 mmol/L Normal [facility] Comment on above: Performed By: #### B MP #### [facility] [address] [place] [address] Dr. Chapin Beck Calcium [Mass/Vol] 8.3 mg/dL Critically low 8.5-10.1 [facility] Comment on above: Performed By: #### B MP #### [facility] [address] [address] [address] Chapin Beck Chloride [Moles/Vol] 105 mmol/L Normal 98-107 [facility] Comment on above: Performed By: #### B MP #### [facility] [address] [address] [address] Chapin Beck CO2 [Moles/Vol] 26.6 mmol/L Normal 21.0-32.0 [facility] Comment on above: Performed By: #### B MP #### [facility] [address] [place] [address] Dr. Chapin Beck Creatinine [Mass/Vol] 0.80 mg/dL Normal 0.70-1.30 [facility] Comment on above: Performed By: #### B MP #### [facility] [address] [place] [address] Dr. Chapin Beck EGFR-AF PUERTO RICAN >60 Normal >=60 [facility] Comment on above: Performed By: #### B MP #### [facility] [address] [place] [address] Dr. Chapin Beck EGFR-NON AF PUERTO RICAN >60 Normal >=60 [facility] Comment on above: Performed By: #### B MP #### [facility] [address] [place] [address] Dr. Chapin Beck Glucose [Mass/Vol] 88 mg/dL Normal 74-106 [facility] Comment on above: Performed By: #### B MP #### [facility] [address] [address] [address] Chapin Beck Potassium [Moles/Vol] 3.6 mmol/L Normal 3.5-5.1 [facility] Comment on above: Performed By: #### B MP #### [facility] [address] [place] [address] Dr. Chapin Beck Sodium [Moles/Vol] 140 mmol/L Normal 136-145 [facility] Comment on above: Performed By: #### B MP #### [facility] [address] [address] [address] Chapin Beck Urea nitrogen [Mass/Vol] 13.0 mg/dL Normal 7.0-18.0 [facility] Comment on above: Performed By: #### B MP #### [facility] [address] [address] [address] Chapin Beck Urea nitrogen/Creatinine [Mass ratio] 16.2 mg/mg Normal [facility] Comment on above: Performed By: #### B MP #### [facility] [address] [place] [address] Dr. Chapin Beck CBC AUTO DIFFon 10-08-2021 BASO # 0.0 103/ul Normal 0.0-0.1 [facility] Comment on above: Performed By: #### U AMIC #### [facility] [address] [place] [address] Dr. Chapin Beck Basophils/100 WBC (Bld) 0.3 % Normal 0.2-2.0 [facility] Comment on above: Performed By: #### U AMIC #### [facility] [address] [place] [address] Dr. Chapin Beck EO # 0.4 103/ul Normal 0.0-0.7 [facility] Comment on above: Performed By: #### U AMIC #### [facility] [address] [place] [address] Dr. Chapin Beck Eosinophils/100 WBC (Bld) 5.0 % Normal 0.9-7.0 [facility] Comment on above: Performed By: #### U AMIC #### [facility] [address] [place] [address] Dr. Chapin Beck Erythrocyte distribution width (RBC) [Ratio] 14.6 % Normal 11.0-15.0 [facility] Comment on above: Performed By: #### U AMIC #### [facility] [address] [place] [address] Dr. Chapin Beck Hematocrit (Bld) [Volume fraction] 40.0 % Critically low 42.0-54.0 [facility] Comment on above: Performed By: #### U AMIC #### [facility] [address] [place] [address] Dr. Chapin Beck Hemoglobin (Bld) [Mass/Vol] 12.9 g/dL Critically low 14.0-18.0 [facility] Comment on above: Performed By: #### U AMIC #### [facility] [address] [place] [address] Dr. Chapin Beck IG # 0.06 10e3/ul Critically high 0.00-0.03 [facility] Comment on above: Performed By: #### U AMIC #### [facility] [address] [place] [address] Dr. Chapin Beck IG % 0.8 % Critically high 0.0-0.5 [facility] Comment on above: Performed By: #### U AMIC #### [facility] [address] [place] [address] Dr. Chapin Beck LYMPH # 2.4 103/ul Normal 1.2-3.8 [facility] Comment on above: Performed By: #### U AMIC #### [facility] [address] [place] [address] Dr. Chapin Beck Lymphocytes/100 WBC (Bld) 31.1 % Normal 20.5-60.0 [facility] Comment on above: Performed By: #### U AMIC #### [facility] [address] [place] [address] Dr. Chapin Beck MANUAL DIFF REQ NO Normal [facility] Comment on above: Performed By: #### U AMIC #### [facility] [address] [place] [address] Dr. Chapin Beck MCH (RBC) [Entitic mass] 27.2 pg Normal 25.9-34.0 [facility] Comment on above: Performed By: #### U AMIC #### [facility] [address] [place] [address] Dr. Chapin Beck MCHC (RBC) [Mass/Vol] 32.3 g/dL Normal 29.9-35.2 [facility] Comment on above: Performed By: #### U AMIC #### [facility] [address] [place] [address] Dr. Chapin Beck MCV (RBC) [Entitic vol] 84.2 fL Normal 80.0-94.0 [facility] Comment on above: Performed By: #### U AMIC #### [facility] [address] [place] [address] Dr. Chapin Beck MONO # 0.8 103/ul Normal 0.3-0.8 [facility] Comment on above: Performed By: #### U AMIC #### [facility] [address] [place] [address] Dr. Chapin Beck Monocytes/100 WBC (Bld) 10.6 % Normal 1.7-12.0 [facility] Comment on above: Performed By: #### U AMIC #### [facility] [address] [place] [address] Dr. Chapin Beck NEUT # 4.1 103/ul Normal 1.4-6.5 [facility] Comment on above: Performed By: #### U AMIC #### [facility] [address] [place] [address] Dr. Chapin Beck Neutrophils/100 WBC (Bld) 52.2 % Normal 43.0-75.0 [facility] Comment on above: Performed By: #### U AMIC #### [facility] [address] [place] [address] Dr. Chapin Beck Platelet mean volume (Bld) [Entitic vol] 9.3 fL Critically low 9.5-13.5 [facility] Comment on above: Performed By: #### U AMIC #### [facility] [address] [place] [address] Dr. Chapin Beck PLT 252 103/ul Normal 150-450 [facility] Comment on above: Performed By: #### U AMIC #### [facility] [address] [place] [address] Dr. Chapin Beck RBC 4.75 106/ul Normal 4.70-6.10 [facility] Comment on above: Performed By: #### U AMIC #### [facility] [address] [place] [address] Dr. Chapin Beck WBC 7.8 103/ul Normal 4.0-11.0 [facility] Comment on above: Performed By: #### U AMIC #### [facility] [address] [place] [address] Dr. Chapin Beck PROF CHEM 8 (BAS METB)on Anion gap [Moles/Vol] 12.2 mmol/L Normal [facility] Comment on above: Performed By: #### B MP #### [facility] [address] [place] [address] Dr. Chapin Beck Calcium [Mass/Vol] 8.5 mg/dL Normal 8.5-10.1 [facility] Comment on above: Performed By: #### B MP #### [facility] [address] [place] [address] Dr. Chapin Beck Chloride [Moles/Vol] 107 mmol/L Normal 98-107 [facility] Comment on above: Performed By: #### B MP #### [facility] [address] [place] [address] Dr. Chapin Beck CO2 [Moles/Vol] 25.9 mmol/L Normal 21.0-32.0 [facility] Comment on above: Performed By: #### B MP #### [facility] [address] [place] [address] Dr. Chapin Beck Creatinine [Mass/Vol] 0.83 mg/dL Normal 0.70-1.30 [facility] Comment on above: Performed By: #### B MP #### [facility] [address] [place] [address] Dr. Chapin Beck EGFR-AF PUERTO RICAN >60 Normal >=60 [facility] Comment on above: Performed By: #### B MP #### [facility] [address] [place] [address] Dr. Chapin Beck EGFR-NON AF PUERTO RICAN >60 Normal >=60 [facility] Comment on above: Performed By: #### B MP #### [facility] [address] [address] [address] Chapin Beck Glucose [Mass/Vol] 106 mg/dL Normal 74-106 [facility] Comment on above: Performed By: #### B MP #### [facility] [address] [place] [address] Dr. Chapin Beck Potassium [Moles/Vol] 4.1 mmol/L Normal 3.5-5.1 [facility] Comment on above: Performed By: #### B MP #### [facility] [address] [place] [address] Dr. Chapin Beck Sodium [Moles/Vol] 141 mmol/L Normal 136-145 [facility] Comment on above: Performed By: #### B MP #### [facility] [address] [place] [address] Dr. Chapin Beck Urea nitrogen [Mass/Vol] 22.0 mg/dL Critically high 7.0-18.0 [facility] Comment on above: Performed By: #### B MP #### [facility] [address] [place] [address] Dr. Chapin Beck Urea nitrogen/Creatinine [Mass ratio] 26.5 mg/mg Normal [facility] Comment on above: Performed By: #### B MP #### [facility] [address] [place] [address] Dr. Chapin Beck BNPon 10-07-2021 Natriuretic peptide B (Bld) [Mass/Vol] 644.0 pg/mL Normal <=1,800.0 [facility] Comment on above: Performed By: #### U AMIC #### [facility] [address] [place] [address] Dr. Chapin Beck CBC W MANUAL DIFFon 10-08-19 ATYPICAL LYMPH # 0.37 103/ul Normal [facility] Comment on above: Performed By: #### G ENTR #### [facility] [address] [place] [address] Dr. Chapin Beck ATYPICAL LYMPH % 5 % Normal [facility] Comment on above: Performed By: #### G ENTR #### [facility] [address] [place] [address] Dr. Chapin Beck BAND # Normal 0.0-0.3 [facility] Comment on above: Performed By: #### G ENTR #### [facility] [address] [place] [address] Dr. Chapin Beck BAND % Normal 0-5 [facility] Comment on above: Performed By: #### G ENTR #### [facility] [address] [place] [address] Dr. Chapin Beck BASOM # 0.00 103/ul Normal 0.00-0.10 [facility] Comment on above: Performed By: #### G ENTR #### [facility] [address] [place] [address] Dr. Chapin Beck BASOM % 0.0 % Critically low 0.2-2.0 [facility] Comment on above: Performed By: #### G ENTR #### [facility] [address] [place] [address] Dr. Chapin Beck BLAST # Normal [facility] Comment on above: Performed By: #### G ENTR #### [facility] [address] [place] [address] Dr. Chapin Beck BLAST % Normal [facility] Comment on above: Performed By: #### G ENTR #### [facility] [address] [place] [address] Dr. Chapin Beck CORRECTED WBC Normal 4.0-11.0 [facility] Comment on above: Performed By: #### G ENTR #### [facility] [address] [place] [address] Dr. Chapin Beck EOS # 0.00 103/ul Normal 0.00-0.70 [facility] Comment on above: Performed By: #### G ENTR #### [facility] [address] [place] [address] Dr. Chapin Beck EOS% 0.0 % Critically low 0.9-7.0 [facility] Comment on above: Performed By: #### G ENTR #### [facility] [address] [place] [address] Dr. Chapin Beck HCT 42.2 % Normal 42.0-54.0 [facility] Comment on above: Performed By: #### G ENTR #### [facility] [address] [address] [address] Chapin Beck HGB 13.8 g/dl Critically low 14.0-18.0 [facility] Comment on above: Performed By: #### G ENTR #### [facility] [address] [address] [address] Chapin Beck LYMPHM # 1.26 103/ul Normal 1.20-3.80 [facility] Comment on above: Performed By: #### G ENTR #### [facility] [address] [place] [address] Dr. Chapin Beck LYMPHM% 17.0 % Critically low 20.5-60.0 [facility] Comment on above: Performed By: #### G ENTR #### [facility] [address] [place] [address] Dr. Chapin Beck MCH 27.4 pg Normal 25.9-34.0 [facility] Comment on above: Performed By: #### G ENTR #### [facility] [address] [place] [address] Dr. Chapin Beck MCHC 32.7 g/dl Normal 29.9-35.2 [facility] Comment on above: Performed By: #### G ENTR #### [facility] [address] [place] [address] Dr. Chapin Beck MCV 83.9 fL Normal 80.0-94.0 [facility] Comment on above: Performed By: #### G ENTR #### [facility] [address] [address] [address] Chapin Beck METAMYELOCYTE # Normal [facility] Comment on above: Performed By: #### G ENTR #### [facility] [address] [place] [address] Dr. Chapin Beck METAMYELOCYTE % Normal [facility] Comment on above: Performed By: #### G ENTR #### [facility] [address] [address] [address] Chapin Beck MONOM# 0.22 103/ul Critically low 0.30-0.80 [facility] Comment on above: Performed By: #### G ENTR #### [facility] [address] [place] [address] Dr. Chapin Beck MONOM% 3.0 % Normal 1.7-12.0 [facility] Comment on above: Performed By: #### G ENTR #### [facility] [address] [place] [address] Dr. Chapin Beck MPV 9.3 fL Critically low 9.5-13.5 [facility] Comment on above: Performed By: #### G ENTR #### [facility] [address] [place] [address] Dr. Chapin Beck MYELOCYTE # Normal [facility] Comment on above: Performed By: #### G ENTR #### [facility] [address] [place] [address] Dr. Chapin Beck MYELOCYTE % Normal [facility] Comment on above: Performed By: #### G ENTR #### [facility] [address] [place] [address] Dr. Chapin Beck NRBC Normal [facility] Comment on above: Performed By: #### G ENTR #### [facility] [address] [place] [address] Dr. Chapin Beck PLT 252 103/ul Normal 150-450 [facility] Comment on above: Performed By: #### G ENTR #### [facility] [address] [place] [address] Dr. Chapin Beck RBC 5.03 106/ul Normal 4.70-6.10 [facility] Comment on above: Performed By: #### G ENTR #### [facility] [address] [place] [address] Dr. Chapin Beck RDW 14.6 % Normal 11.0-15.0 [facility] Comment on above: Performed By: #### G ENTR #### [facility] [address] [place] [address] Dr. Chapin Beck SEG # 5.55 103/ul Normal 1.40-6.50 [facility] Comment on above: Performed By: #### G ENTR #### [facility] [address] [place] [address] Dr. Chapin Beck SEG % 75.0 % Normal 43.0-75.0 [facility] Comment on above: Performed By: #### G ENTR #### [facility] [address] [place] [address] Dr. Chapin Beck WBC 7.4 103/ul Normal 4.0-11.0 [facility] Comment on above: Performed By: #### G ENTR #### [facility] [address] [place] [address] Dr. Chapin Beck GENTAMICIN RANDOMon 10-08-19 22 GENTAMICIN 3.2 ug/mL Normal [facility] Comment on above: Performed By: #### G ENTR #### [facility] [address] [place] [address] Dr. Chapin Beck PROF CHEM 8 (BAS METB)on Anion gap [Moles/Vol] 14.5 mmol/L Normal [facility] Comment on above: Performed By: #### B MP #### [facility] [address] [place] [address] Dr. Chapin Beck Calcium [Mass/Vol] 8.6 mg/dL Normal 8.5-10.1 [facility] Comment on above: Performed By: #### B MP #### [facility] [address] [place] [address] Dr. Chapin Beck Chloride [Moles/Vol] 101 mmol/L Normal 98-107 [facility] Comment on above: Performed By: #### B MP #### [facility] [address] [place] [address] Dr. Chapin Beck CO2 [Moles/Vol] 25.0 mmol/L Normal 21.0-32.0 [facility] Comment on above: Performed By: #### B MP #### [facility] [address] [place] [address] Dr. Chapin Beck Creatinine [Mass/Vol] 0.89 mg/dL Normal 0.70-1.30 [facility] Comment on above: Performed By: #### B MP #### [facility] [address] [place] [address] Dr. Chapin Beck EGFR-AF PUERTO RICAN >60 Normal >=60 [facility] Comment on above: Performed By: #### B MP #### [facility] [address] [place] [address] Dr. Chapin Beck EGFR-NON AF PUERTO RICAN >60 Normal >=60 [facility] Comment on above: Performed By: #### B MP #### [facility] [address] [place] [address] Dr. Chapin Beck Glucose [Mass/Vol] 175 mg/dL Critically high 74-[address] [facility] Comment on above: Performed By: #### B MP #### [facility] [address] [place] [address] Dr. Chapin Beck Potassium [Moles/Vol] 4.5 mmol/L Normal 3.5-5.1 [facility] Comment on above: Performed By: #### B MP #### [facility] [address] [place] [address] Dr. Chapin Beck Sodium [Moles/Vol] 136 mmol/L Normal 136-145 [facility] Comment on above: Performed By: #### B MP #### [facility] [address] [place] [address] Dr. Chapin Beck Urea nitrogen [Mass/Vol] 17.0 mg/dL Normal 7.0-18.0 [facility] Comment on above: Performed By: #### B MP #### [facility] [address] [place] [address] Dr. Chapin Beck Urea nitrogen/Creatinine [Mass ratio] 19.1 mg/mg Normal [facility] Comment on above: Performed By: #### B MP #### [facility] [address] [place] [address] Dr. Chapin Beck CBC W MANUAL DIFFon 10-07-19 22 ATYPICAL LYMPH # 0.45 103/ul Normal [facility] Comment on above: Performed By: #### U AMIC #### [facility] [address] [address] [address] Chapin Beck ATYPICAL LYMPH % 7 % Normal [facility] Comment on above: Performed By: #### U AMIC #### [facility] [address] [place] [address] Dr. Chapin Beck BAND # Normal 0.0-0.3 [facility] Comment on above: Performed By: #### U AMIC #### [facility] [address] [address] [address] Chapin Beck BAND % Normal 0-5 [facility] Comment on above: Performed By: #### U AMIC #### [facility] [address] [place] [address] Dr. Chapin Beck BASOM # 0.00 103/ul Normal 0.00-0.10 [facility] Comment on above: Performed By: #### U AMIC #### [facility] [address] [place] [address] Dr. Chapin Beck BASOM % 0.0 % Critically low 0.2-2.0 [facility] Comment on above: Performed By: #### U AMIC #### [facility] [address] [place] [address] Dr. Chapin Beck BLAST # Normal [facility] Comment on above: Performed By: #### U AMIC #### [facility] [address] [place] [address] Dr. Chapin Beck BLAST % Normal [facility] Comment on above: Performed By: #### U AMIC #### [facility] [address] [place] [address] Dr. Chapin Beck CORRECTED WBC Normal 4.0-11.0 [facility] Comment on above: Performed By: #### U AMIC #### [facility] [address] [place] [address] Dr. Chapin Beck EOS # 0.13 103/ul Normal 0.00-0.70 [facility] Comment on above: Performed By: #### U AMIC #### [facility] [address] [place] [address] Dr. Chapin Beck EOS% 2.0 % Normal 0.9-7.0 [facility] Comment on above: Performed By: #### U AMIC #### [facility] [address] [address] [address] Chapin Beck HCT 44.5 % Normal 42.0-54.0 [facility] Comment on above: Performed By: #### U AMIC #### [facility] [address] [address] [address] Chapin Beck HGB 14.1 g/dl Normal 14.0-18.0 [facility] Comment on above: Performed By: #### U AMIC #### [facility] [address] [place] [address] Dr. Chapin Beck LYMPHM # 1.92 103/ul Normal 1.20-3.80 [facility] Comment on above: Performed By: #### U AMIC #### [facility] [address] [place] [address] Dr. Chapin Beck LYMPHM% 30.0 % Normal 20.5-60.0 [facility] Comment on above: Performed By: #### U AMIC #### [facility] [address] [place] [address] Dr. Chapin Beck MCH 26.9 pg Normal 25.9-34.0 [facility] Comment on above: Performed By: #### U AMIC #### [facility] [address] [place] [address] Dr. Chapin Beck MCHC 31.7 g/dl Normal 29.9-35.2 [facility] Comment on above: Performed By: #### U AMIC #### [facility] [address] [address] [address] Chapin Beck MCV 84.8 fL Normal 80.0-94.0 [facility] Comment on above: Performed By: #### U AMIC #### [facility] [address] [place] [address] Dr. Chapin Beck METAMYELOCYTE # 0.0 103/ul Normal [facility] Comment on above: Performed By: #### U AMIC #### [facility] [address] [address] [address] Chapin Beck METAMYELOCYTE % Normal [facility] Comment on above: Performed By: #### U AMIC #### [facility] [address] [address] [address] Chapin Beck MONOM# 0.51 103/ul Normal 0.30-0.80 [facility] Comment on above: Performed By: #### U AMIC #### [facility] [address] [address] [address] Chapin Beck MONOM% 8.0 % Normal 1.7-12.0 [facility] Comment on above: Performed By: #### U AMIC #### [facility] [address] [address] [address] Chapin Beck MPV 9.2 fL Critically low 9.5-13.5 [facility] Comment on above: Performed By: #### U AMIC #### [facility] [address] [address] [address] Chapin Beck MYELOCYTE # Normal [facility] Comment on above: Performed By: #### U AMIC #### [facility] [address] [address] [address] Chapin Beck MYELOCYTE % Normal [facility] Comment on above: Performed By: #### U AMIC #### [facility] [address] [address] [address] Chapin Beck NRBC Normal [facility] Comment on above: Performed By: #### U AMIC #### [facility] [address] [address] [address] Chapin Beck PLT 274 103/ul Normal 150-450 [facility] Comment on above: Performed By: #### U AMIC #### [facility] [address] [address] [address] Chapin Beck RBC 5.25 106/ul Normal 4.70-6.10 [facility] Comment on above: Performed By: #### U AMIC #### [facility] [address] [address] [address] Chapin Beck RDW 14.8 % Normal 11.0-15.0 [facility] Comment on above: Performed By: #### U AMIC #### [facility] [address] [address] [address] Chapin Beck SEG # 3.39 103/ul Normal 1.40-6.50 [facility] Comment on above: Performed By: #### U AMIC #### [facility] [address] [address] [address] Chapin Beck SEG % 53.0 % Normal 43.0-75.0 [facility] Comment on above: Performed By: #### U AMIC #### [facility] [address] [address] [address] Chapin Beck WBC 6.4 103/ul Normal 4.0-11.0 [facility] Comment on above: Performed By: #### U AMIC #### [facility] [address] [address] [address] Chapin Beck [facility] SARS-CoV-2 (COVID-19) RNA VITA+probe Ql (Unsp spec) Not detected Normal NOT DETECTED [facility] Comment on above: Result Comment: When diagnostic [...] for this test is supported by the [place] of Health and Human Service's declaration that [...] used). Performed By: #### U AMIC #### [facility] [address] [place] [address] Dr. Chapin Beck ER URINE PROFILEon 2 Bilirubin Ql (U) Unable to perform te sting due to color interference. Abnormal NEGATIVE [facility] Comment on above: Performed By: #### B MP #### [facility] [address] [place] [address] Dr. Chapin Beck Clarity (U) TURBID Abnormal CLEAR [facility] Comment on above: Performed By: #### B MP #### [facility] [address] [place] [address] Dr. Chapin Beck Color (U) RED Abnormal YELLOW [facility] Comment on above: Performed By: #### B MP #### [facility] [address] [place] [address] Dr. Chapin Beck ERUAHD A micrscopic examina tion will be performed if indicated. Normal [facility] Comment on above: Performed By: #### B MP #### [facility] [address] [place] [address] Dr. Chapin Beck Glucose Ql (U) Unable to perform te sting due to color interference. Abnormal NEGATIVE [facility] Comment on above: Performed By: #### B MP #### [facility] [address] [place] [address] Dr. Chapin Beck Hemoglobin Ql (U) Unable to perform te sting due to color interference. Abnormal NEGATIVE [facility] Comment on above: Performed By: #### B MP #### [facility] [address] [place] [address] Dr. Chapin Beck Ketones Ql (U) Unable to perform te sting due to color interference. Abnormal NEGATIVE [facility] Comment on above: Performed By: #### B MP #### [facility] [address] [place] [address] Dr. Chapin Beck LEUKOCYTES Unable to perform te sting due to color interference. Abnormal NEGATIVE [facility] Comment on above: Performed By: #### B MP #### [facility] [address] [place] [address] Dr. Chapin Beck Nitrite Ql (U) Unable to perform te sting due to color interference. Abnormal NEGATIVE [facility] Comment on above: Performed By: #### B MP #### [facility] [address] [place] [address] Dr. Chapin Beck pH Unable to perform te sting due to color interference. Abnormal 5-9 [facility] Comment on above: Performed By: #### B MP #### [facility] [address] [place] [address] Dr. Chapin Beck SPEC GRAVITY 1.025 Normal 1.005-<=1. 025 [facility] Comment on above: Performed By: #### B MP #### [facility] [address] [place] [address] Dr. Chapin Beck UA PROTEIN Unable to perform te sting due to color interference. Normal NEGATIVE/ TRACE [facility] Comment on above: Performed By: #### B MP #### [facility] [address] [place] [address] Dr. Chapin Beck UR MICRO IND INDICATED Normal [facility] Comment on above: Performed By: #### B MP #### [facility] [address] [place] [address] Dr. Chapin Beck UROBILINOGEN Unable to perform te sting due to color interference. Normal 0.2 - 1.0 [facility] Comment on above: Performed By: #### B MP #### [facility] [address] [place] [address] Dr. Chapin Beck PROF 14(COMP METB)on 022 Albumin [Mass/Vol] 2.5 g/dL Critically low 3.4-5.0 [facility] Comment on above: Performed By: #### G ENTR #### [facility] [address] [place] [address] Dr. Chapin Beck Albumin/Globulin [Mass ratio] 0.6 {ratio} Normal [facility] Comment on above: Performed By: #### G ENTR #### [facility] [address] [place] [address] Dr. Chapin Beck ALP [Catalytic activity/Vol] 81 U/L Normal 46-116 [facility] Comment on above: Performed By: #### G ENTR #### [facility] [address] [address] [address] Chapin Beck ALT [Catalytic activity/Vol] 13 U/L Critically low 16-63 [facility] Comment on above: Performed By: #### G ENTR #### [facility] [address] [address] [address] Chapin Beck Anion gap [Moles/Vol] 11.1 mmol/L Normal Th [facility] Comment on above: Performed By: #### G ENTR #### [facility] [address] [address] [address] Chapin Beck AST [Catalytic activity/Vol] 14 U/L Critically low 15-37 [facility] Comment on above: Performed By: #### G ENTR #### [facility] [address] [place] [address] Dr. Chapin Beck Bilirubin [Mass/Vol] 0.2 mg/dL Normal 0.2-1.0 [facility] Comment on above: Performed By: #### G ENTR #### [facility] [address] [address] [address] Chapin Beck Calcium [Mass/Vol] 8.6 mg/dL Normal 8.5-10.1 [facility] Comment on above: Performed By: #### G ENTR #### [facility] [address] [address] [address] Chapin Beck Chloride [Moles/Vol] 100 mmol/L Normal 98-107 [facility] Comment on above: Performed By: #### G ENTR #### [facility] [address] [address] [address] Chapin Beck CO2 [Moles/Vol] 27.3 mmol/L Normal 21.0-32.0 [facility] Comment on above: Performed By: #### G ENTR #### [facility] [address] [address] [address] Chapin Beck Creatinine [Mass/Vol] 0.94 mg/dL Normal 0.70-1.30 [facility] Comment on above: Performed By: #### G ENTR #### [facility] [address] [address] [address] Chapin Beck EGFR-AF PUERTO RICAN >60 Normal >=60 [facility] Comment on above: Performed By: #### G ENTR #### [facility] [address] [address] [address] Chapin Beck EGFR-NON AF PUERTO RICAN >60 Normal >=60 [facility] Comment on above: Performed By: #### G ENTR #### [facility] [address] [address] [address] Chapin Beck Globulin (S) [Mass/Vol] 4.5 g/dL Normal [facility] Comment on above: Performed By: #### G ENTR #### [facility] [address] [place] [address] Dr. Chapin Beck Glucose [Mass/Vol] 129 mg/dL Critically high 74-[address] [facility] Comment on above: Performed By: #### G ENTR #### [facility] [address] [place] [address] Dr. Chapin Beck Potassium [Moles/Vol] 4.4 mmol/L Normal 3.5-5.1 [facility] Comment on above: Performed By: #### G ENTR #### [facility] [address] [place] [address] Dr. Chapin Beck Protein [Mass/Vol] 7.0 g/dL Normal 6.4-8.2 [facility] Comment on above: Performed By: #### G ENTR #### [facility] [address] [place] [address] Dr. Chapin Beck Sodium [Moles/Vol] 134 mmol/L Critically low 136-145 [facility] Comment on above: Performed By: #### G ENTR #### [facility] [address] [place] [address] Dr. Chapin Beck Urea nitrogen [Mass/Vol] 20.0 mg/dL Critically high 7.0-18.0 [facility] Comment on above: Performed By: #### G ENTR #### [facility] [address] [address] [address] Chapin Beck Urea nitrogen/Creatinine [Mass ratio] 21.3 mg/mg Normal [facility] Comment on above: Performed By: #### G ENTR #### [facility] [address] [place] [address] Dr. Chapin Beck PROTIMEon 10-06-2021 INR Coag (PPP) [Relative time] 1.16 {INR} Normal [facility] Comment on above: Performed By: #### U AMIC #### [facility] [address] [place] [address] Dr. Chapin Beck INR GUIDELINES SEE BELOW Normal [facility] Comment on above: Result Comment: SANA RED INR: 2.0 - 3.0 CONDITIONS NOT LISTED BELOW 2.5 - 3.5 FOR PROSTHETIC HEART VALVE REPLACEMENT 2.5 - 3.5 RECURRENT THROMBOSIS Performed By: #### U AMIC #### [facility] [address] [place] [address] Dr. Chapin Beck PT Coag (PPP) [Time] 12.4 s Critically high 9.0-11.6 [facility] Comment on above: Performed By: #### U AMIC #### [facility] [address] [place] [address] Dr. Chapin Beck URINE MICROSCOPIC ONLYon BACTERIA NONE SEEN Normal NONE SEEN [facility] Comment on above: Performed By: #### B MP #### [facility] [address] [place] [address] Dr. Chapin Beck Bacteria identified Cx Nom (U) NOT INDICATED Normal [facility] Comment on above: Performed By: #### B MP #### [facility] [address] [place] [address] Dr. Chapin Beck CAST NONE SEEN Normal NONE SEEN [facility] Comment on above: Performed By: #### B MP #### [facility] [address] [place] [address] Dr. Chapin Beck Crystals LM Nom (Urine sed) NONE SEEN Normal NONE SEEN [facility] Comment on above: Performed By: #### B MP #### [facility] [address] [place] [address] Dr. Chapin Beck Epithelial cells LM Ql (Urine sed) RARE Normal NONE SEEN /RARE [facility] Comment on above: Performed By: #### B MP #### [facility] [address] [place] [address] Dr. Chapin Beck MUCOUS NONE SEEN Normal NONE SEEN [facility] Comment on above: Performed By: #### B MP #### [facility] [address] [place] [address] Dr. Chapin Beck RBC (U) [#/Vol] /uL Abnormal 0-2 [facility] Comment on above: Performed By: #### B MP #### [facility] [address] [place] [address] Dr. Chapin Beck WBC 5-10 Abnormal NONE SEEN [facility] Comment on above: Performed By: #### B MP #### [facility] [address] [place] [address] Dr. Chapin Beck CULTURE URINEon 09-10-2021 CULTURE [...] F Levofloxacin 0.25 S F Normal [facility] Comment on above: Performed By: #### B MP #### [facility] [address] [place] [address] Dr. Chapin Beck UA RANDOM W/MICROSCOPICon 08 -01-2022 BACTERIA SMALL Abnormal NONE SEEN [facility] Comment on above: Performed By: #### G ENTR #### [facility] [address] [place] [address] Dr. Chapin Beck Bilirubin Ql (U) Negative Normal NEGATIVE [facility] Comment on above: Performed By: #### G ENTR #### [facility] [address] [place] [address] Dr. Chapin Beck CAST NONE SEEN Normal NONE SEEN [facility] Comment on above: Performed By: #### G ENTR #### [facility] [address] [place] [address] Dr. Chapin Beck Clarity (U) CLEAR Normal CLEAR [facility] Comment on above: Performed By: #### G ENTR #### [facility] [address] [place] [address] Dr. Chapin Beck Color (U) LT. YELLOW Normal YELLOW [facility] Comment on above: Performed By: #### G ENTR #### [facility] [address] [place] [address] Dr. Chapin Beck Crystals LM Nom (Urine sed) NONE SEEN Normal NONE SEEN [facility] Comment on above: Performed By: #### G ENTR #### [facility] [address] [place] [address] Dr. Chapin Beck Epithelial cells LM Ql (Urine sed) RARE Normal NONE SEEN /RARE [facility] Comment on above: Performed By: #### G ENTR #### [facility] [address] [place] [address] Dr. Chapin Beck Glucose Ql (U) Negative Normal NEGATIVE [facility] Comment on above: Performed By: #### G ENTR #### [facility] [address] [place] [address] Dr. Chapin Beck Hemoglobin Ql (U) LARGE Abnormal NEGATIVE [facility] Comment on above: Performed By: #### G ENTR #### [facility] [address] [place] [address] Dr. Chapin Beck Ketones Ql (U) Negative Normal NEGATIVE [facility] Comment on above: Performed By: #### G ENTR #### [facility] [address] [place] [address] Dr. Chapin Beck LEUKOCYTES MODERATE Abnormal NEGATIVE [facility] Comment on above: Performed By: #### G ENTR #### [facility] [address] [place] [address] Dr. Chapin Beck MUCOUS NONE SEEN Normal NONE SEEN [facility] Comment on above: Performed By: #### G ENTR #### [facility] [address] [place] [address] Dr. Chapin Beck Nitrite Ql (U) Positive Abnormal NEGATIVE [facility] Comment on above: Performed By: #### G ENTR #### [facility] [address] [place] [address] Dr. Chapin Beck pH (U) 5.5 [pH] Normal 5-9 [facility] Comment on above: Performed By: #### G ENTR #### [facility] [address] [place] [address] Dr. Chapin Beck RBC 10-20 Abnormal 0-2 [facility] Comment on above: Performed By: #### G ENTR #### [facility] [address] [place] [address] Dr. Chapin Beck SPEC GRAVITY 1.020 Normal 1.005-<=1. 025 [facility] Comment on above: Performed By: #### G ENTR #### [facility] [address] [place] [address] Dr. Chapin Beck UA PROTEIN Negative Normal NEGATIVE/ TRACE [facility] Comment on above: Performed By: #### G ENTR #### [facility] [address] [place] [address] Dr. Chpain Beck Urobilinogen Qn (U) 0.2 {Sami'U}/dL Normal 0.2 - 1. 0 [facility] Comment on above: Performed By: #### G ENTR #### [facility] [address] [place] [address] Dr. Chapin Beck WBC 5-10 Abnormal NONE SEEN [facility] Comment on above: Performed By: #### G ENTR #### [facility] [address] [place] [address] Dr. Chapin Beck Basic Metabolic Panelon 07- 8-2022 Calcium [Mass/Vol] 9.2 mg/dL Normal 8.2-10.2 [facility] Comment on above: Result Comment: PERF ORMED BY: [place] [id number] PATHOLOGIST RETORT ENGINEER CHELSY BHAGAT M.D. Performed By: #### A ERC #### [facility] [address] [place] [address] [place] Chloride [Moles/Vol] 97 mmol/L Normal 95-[address] [facility] Comment on above: Performed By: #### A ERC #### [address] CO2 [Moles/Vol] 26.1 mmol/L Normal 22.0-30.0 [facility] Comment on above: Performed By: #### A ERC #### [address] Creatinine [Mass/Vol] 0.72 mg/dL Normal 0.64-1.27 [facility] Comment on above: Performed By: #### A ERC #### [address] Estimated GFR ( Altagracia > 60 [facility] Comment on above: Result Comment: GFR estimated reference range: According to KDOQI guidelines, <60 ml/min/1.73m2 is sufficient to diagnose a patient with chronic kidney disease. Performed By: #### A ERC #### [address] Estimated GFR (Non- Am > 60 Normal [facility] Comment on above: Performed By: #### A ERC #### [address] Glucose [Mass/Vol] 91 mg/dL Normal 70-100 [facility] Comment on above: Result Comment: [place] Glucose Reference Range is dependent on time and content of last meal. Glucose of more than 200 mg/dL in a nonstressed, ambulatory subject supports the diagnosis of Diabetes Mellitus. ADA recommended reference range Performed By: #### A ERC #### [facility] [address] Potassium [Moles/Vol] 4.6 mmol/L Normal 3.5-5.1 [facility] Comment on above: Performed By: #### A ERC #### [facility] [address] Sodium [Moles/Vol] 132 mmol/L Low 136-146 [facility] Comment on above: Performed By: #### A ERC #### [facility] [address] Urea nitrogen [Mass/Vol] 16 mg/dL Normal 9-23 [facility] Comment on above: Performed By: #### A ERC #### [facility] [address] Basophils Auto (Bld) [#/Vol] Ordered By: Soham Cash on 08-24-2021 Basophils (Bld) [#/Vol] 0.1 10*3/uL 0.0-0.2 [facility] Basophils/100 WBC Auto (Bld) Ordered By: Soham Cash on 08-24-2021 Basophils/100 WBC (Bld) 0.7 % [facility] Blood hemoglobin measurement (mass/volume)Ordered By: Soham Cash on 08-24-2021 Hemoglobin (Bld) [Mass/Vol] 14.1 g/dL 13.0-17.0 [facility] Blood leukocytes automated c ount (number/volume)Ordered By: Soham Cash on 08-24-2021 WBC (Bld) [#/Vol] 8.1 10*3/uL 4.5-11.0 [facility] Complete Blood Count Auto Di ffon 08-24-2021 Basophils (Bld) [#/Vol] 0.1 10*3/uL Normal 0.0-0.2 [facility] Comment on above: Result Comment: PERF ORMED BY: [facility] [address] [place] [address] PATHOLOGIST RETORT ENGINEER CHELSY BHAGAT M.D. Performed By: #### B MP, CBC ####[place] [id number] Basophils/100 WBC (Bld) 0.7 % Normal . [facility] Comment on above: Performed By: #### B MP, CBC ####[place] [id number] [facility] Eosinophils (Bld) [#/Vol] 0.5 10*3/uL High 0.0-0.45 [facility] Comment on above: Performed By: #### B MP, CBC ####[address] Eosinophils/100 WBC (Bld) 6.6 % Normal . [facility] Comment on above: Performed By: #### B MP, CBC ####[address] Erythrocyte distribution width (RBC) [Ratio] 16.1 % High 12.0-14.8 [facility] Comment on above: Performed By: #### B MP, CBC ####[address] Hematocrit (Bld) [Volume fraction] 43.7 % Normal 38.8-50.0 [facility] Comment on above: Performed By: #### B MP, CBC ####[address] Hemoglobin (Bld) [Mass/Vol] 14.1 g/dL Normal 13.0-17.0 [facility] Comment on above: Performed By: #### B MP, CBC ####[address] Lymphocytes (Bld) [#/Vol] 2.0 10*3/uL Normal 1.00-4.8 [facility] Comment on above: Performed By: #### B MP, CBC ####[place] [id number] [facility] Lymphocytes/100 WBC (Bld) 24.5 % Normal . [facility] Comment on above: Performed By: #### B MP, CBC ####[address] [place] [address] [place] MCH (RBC) [Entitic mass] 27.2 pg Low 27.5-35.2 [facility] Comment on above: Performed By: #### B MP, CBC ####[address] MCV (RBC) [Entitic vol] 84.1 fL Normal 83.5-101 [facility] Comment on above: Performed By: #### B MP, CBC ####[address] Mean Corpuscular HGB Conc 32.3 g/dL Low 32.5-35.6 [facility] Comment on above: Performed By: #### B MP, CBC ####[address] Monocytes (Bld) [#/Vol] 1.3 10*3/uL High 0.0-0.8 [facility] Comment on above: Performed By: #### B MP, CBC ####[address] Monocytes/100 WBC (Bld) 15.7 % Normal . [facility] Comment on above: Performed By: #### B MP, CBC ####[address] Neutrophils (Bld) [#/Vol] 4.3 10*3/uL Normal 1.8-7.7 [facility] Comment on above: Performed By: #### B MP, CBC ####[address] Neutrophils/100 WBC (Bld) 52.5 % Normal . [facility] Comment on above: Performed By: #### B MP, CBC ####[address] Nucleated RBC/100 WBC (Bld) [Ratio] 0.1 % Normal 0-0.5 [facility] Comment on above: Performed By: #### B MP, CBC ####[address] [place] [address] [place] Platelet mean volume (Bld) [Entitic vol] 7.7 fL Normal 6.6-10.1 [facility] Comment on above: Performed By: #### B MP, CBC ####[place] [address] [place] [id number] [facility] Platelets (Bld) [#/Vol] 299 10*3/uL Normal 150-450 [facility] Comment on above: Performed By: #### B MP, CBC ####[address] RBC (Bld) [#/Vol] 5.20 10*6/uL Normal 3.90-5.[address] [facility] Comment on above: Performed By: #### B MP, CBC ####[address] WBC (Bld) [#/Vol] 8.1 10*3/uL Normal 4.5-11.0 [facility] Comment on above: Performed By: #### B MP, CBC ####[address] Creatinine and Glomerular fi ltration rate.predicted panel (S/P/Bld)Ordered By: Soham Cash on 08-24-2021 Creatinine [Mass/Vol] 0.72 mg/dL 0.64-1.27 [facility] Eosinophils Auto (Bld) [#/Vo l]Ordered By: Soham Cash on 08-24-2021 Eosinophils (Bld) [#/Vol] 0.5 10*3/uL 0.0-0.45 [facility] Eosinophils/100 WBC Auto (Bl d)Ordered By: Soham Cash on 08-24-2021 Eosinophils/100 WBC (Bld) 6.6 % [facility] Erythrocyte distribution wid th Auto (RBC) [Ratio]Ordered By: Soham Cash on 08-24-2021 Erythrocyte distribution width (RBC) [Ratio] 16.1 % 12.0-14.8 [facility] Estimated glomerular filtrat ion rate (GFR) non- AmericanOrdered By: Soham Cash on 08-24-2021 GFR/1.73 sq M.predicted among non-blacks MDRD (S/P/Bld) [Vol rate/Area] > 60 mL/Min [facility] Hematocrit Auto (Bld) [Volum e fraction]Ordered By: Soham Cash on 08-24-2021 Hematocrit (Bld) [Volume fraction] 43.7 % 38.8-50.0 [facility] Laboratory - Hematology and Cell countsOrdered By: Soham Cash on 08-24-2021 Nucleated RBC/100 WBC (Bld) [Ratio] 0.1 % 0-0.5 [facility] Lymphocytes Auto (Bld) [#/Vo l]Ordered By: Soham Cash on 08-24-2021 Lymphocytes (Bld) [#/Vol] 2.0 10*3/uL 1.00-4.8 [facility] Lymphocytes/100 WBC Auto (Bl d)Ordered By: Soham Cash on 08-24-2021 Lymphocytes/100 WBC (Bld) 24.5 % [facility] MCH Auto (RBC) [Entitic mass ]Ordered By: Soham Cash on 08-24-2021 MCH (RBC) [Entitic mass] 27.2 pg 27.5-35.2 [facility] MCHC Auto (RBC) [Mass/Vol]Or dered By: Soham Cash on 08-24-2021 MCHC (RBC) [Mass/Vol] 32.3 g/dL 32.5-35.6 [facility] MCV Auto (RBC) [Entitic vol] Ordered By: Soham Cash on 08-24-2021 MCV (RBC) [Entitic vol] 84.1 fL 83.5-101 [facility] Monocytes Auto (Bld) [#/Vol] Ordered By: Soham Cash on 08-24-2021 Monocytes (Bld) [#/Vol] 1.3 10*3/uL 0.0-0.8 [facility] Monocytes/100 WBC Auto (Bld) Ordered By: Soham Cash on 08-24-2021 Monocytes/100 WBC (Bld) 15.7 % [facility] Neutrophils Auto (Bld) [#/Vo l]Ordered By: Soham Cash on 08-24-2021 Neutrophils (Bld) [#/Vol] 4.3 10*3/uL 1.8-7.7 [facility] Neutrophils/100 WBC Auto (Bl d)Ordered By: Soham Cash on 08-24-2021 Neutrophils/100 WBC (Bld) 52.5 % [facility] No Panel InformationOrdered By: Soham Cash on 08-24-2021 Estimated GFR () > 60 mL/Min [facility] Comment on above: GFR estimated refere nce range: According to KDOQI guidelines, <60 ml/min/1.73m2 is sufficient to diagnose a patient with chronic kidney disease. Pharmacy Creatinine Clearance (Chem N/A [facility] PST Type and Screenon 2021 ABO and Rh group Nom (Bld) Blood group O Rh(D) positive Normal [facility] Comment on above: Order Comment: Date of Surgery: [id number] # of PRBC units on hold?: 2 Result Comment: PERF ORMED BY: [facility] [address] [place] [address] PATHOLOGIST RETORT ENGINEER CHELSY BHAGAT M.D. Order Comment: Date of Surgery: [id number] # of PRBC units on hold?: 2 Platelet mean volume Auto (B ld) [Entitic vol]Ordered By: Soham Cash on 08-24-2021 Platelet mean volume (Bld) [Entitic vol] 7.7 fL 6.6-10.1 [facility] Platelets Auto (Bld) [#/Vol] Ordered By: Soham Cash on 08-24-2021 Platelets (Bld) [#/Vol] 299 10*3/uL 150-450 [facility] RBC Auto (Bld) [#/Vol]Ordere d By: Soham Cash on 08-24-2021 RBC (Bld) [#/Vol] 5.20 10*6/uL 3.90-5.[address] [facility] Serum or plasma calcium kirstie urement (mass/volume)Ordered By: Soham Cash on 08-24-2021 Calcium [Mass/Vol] 9.2 mg/dL 8.2-10.2 [facility] Serum or plasma chloride codie surement (moles/volume)Ordered By: Soham Cash on 08-24-2021 Chloride [Moles/Vol] 97 mmol/L 95-[address] [facility] Serum or plasma glucose kirstie urement (mass/volume)Ordered By: Soham Cash on 08-24-2021 Glucose [Mass/Vol] 91 mg/dL 70-100 [facility] Comment on above: ADA recommended refe rence range Random Glucose Reference Range is dependent on time and content of last meal. Glucose of more than 200 mg/dL in a nonstressed, ambulatory subject supports the diagnosis of Diabetes Mellitus. Serum or plasma potassium me asurement (moles/volume)Ordered By: Soham Cash on 08-24-2021 Potassium [Moles/Vol] 4.6 mmol/L 3.5-5.1 [facility] Serum or plasma sodium measu rement (moles/volume)Ordered By: Soham Cash on 08-24-2021 Sodium [Moles/Vol] 132 mmol/L 136-146 [facility] Serum or plasma total carbon dioxide measurement (moles/volume)Ordered By: Soham Cash on 08-24-2021 CO2 [Moles/Vol] 26.1 mmol/L 22.0-30.0 [facility] Serum or plasma urea nitroge n measurement (mass/volume)Ordered By: Soham Cash on 08-24-2021 Urea nitrogen [Mass/Vol] 16 mg/dL 9-23 [facility] XR hip RT min 2V(w/wo pelvis )*on 08-24-2021 XR hip RT min 2V(w/wo pelvis)* [place] [address] XRay Report Signed Patient: Angella Pradhan MR#: [id number] : 1945 Acct:[id number] Age/Sex: 75 / M ADM Date: 08/24/21 Loc: PS Room: Type: [facility] Attending Dr: Soham Cash Jr, DO Copies [...] Stark Jr., D.OBetsey08/24/2021 2:50 PM Dictation Location: [place] [address] Transcribed By: [facility] 08/24/21 1450 Dictated By: Horace Stark Jr, DO 08/24/21 1448 Signed By: 08/24/21 1450 [facility] MRI PELVIS WO CONon 07-11-19 MRI PELVIS [...] SIVAN MOTT Date: 2021-07-10 18:35 Normal [facility] Office Visit (Cardiology)on 06-19-2021 Follow-up visit Diagnoses/Problems [...] (coronary artery disease) (414.00) (I25.10) Assessed By: Elne Walter; Last Assessed: 19 Jun 2021 Current [...] negative for complaint. Vitals Vital Signs Recorded: [id number] 11:00AMRecorded: [id number] 10:57AM Tlorvpzi65, RUE92, LUE, Sitting Vgtonpynl17, RUE58, LUE, Sitting Heart Rate68, Apical EKG done in office today Signatures Electronically signed by : Pino Dunbar MD; Jun 19 2021 11:46AM EST (Author) Normal [employer] COVID-19 Antigenon 2 COVID-19 Antigen Healthcare Worker?: [...] developed and its performance characteristic determined by [employer] and validated at [facility]. This test has not been FDA [...] for SARS Antigen by HERBIE PERFORMED BY: [place] [address] PATHOLOGIST RETORT ENGINEER CEHLSY BHAGAT M.D. Normal [facility] Comment on above: Performed By: #### C OVID-19 BECKY, SOFIANEG #### [address] COVID-19 SOFIAOrdered By: Alicia Palafox on 06-10-2021 SARS-CoV+SARS-CoV-2 (COVID-19) Ag IA.rapid Ql (Resp) Negative Negative [facility] Comment on above: This is a duplicate Becky SARS Antigen (HERBIE) result to be used for statistical tracking purpose only. No Panel InformationOrdered By: Horace Palafox on 06-10-2021 SARS Antigen (LFIA) [facility] Becky Ag Negativeon 06-11-19 22 Becky Ag Negative Negative Normal Negative [facility] Comment on above: Result Comment: This is a duplicate Becky SARS Antigen (HERBIE) result to be used for statistical tracking purpose only. PERFORMED BY: [place] [address] PATHOLOGIST RETORT ENGINEER CHELSY BHAGAT M.D. Performed By: #### C OVID-19 BECKY, SOFIANEG #### [facility] [address] ABO and Rh group post transf usion reaction Nom (Bld)Ordered By: Cesilia Rosales on 06-05-2021 Microscopic observation Gram stain Nom (Unsp spec) [facility] Aerobic Cultureon 06-05-2021 Aerobic Culture ORGANISM: Citrobacte r freundii (O:CITFRE) Quantity of Growth Light Growth ORGANISM: Pseudomonas aeruginosa (O:PSEAER) Quantity of Growth Light Growth ORGANISM: Bacteroides thetaiotaomicron (O:BACTHE) Comments Sent to [facility] for Testing Quantity of Growth Moderate Growth Minimum inhibitory concentration Ampicillin Sulbact 16 Intermediate Metronidazole 0.25 Susceptible Ertapenem 4 Susceptible Bacteroides spp. are intrinsically resistant to ampicillin, penicillin, and aminoglycosides. Testing performed at [facility] Gram Stain Result 1+ Gram Negative [...] RESISTANT TO ALL B-LACTAM DRUGS. PERFORMED BY: [place] [address] PATHOLOGIST RETORT ENGINEER CHELSY BHAGAT M.D. [facility] Comment on above: Performed By: #### A ERC #### [place] [address] [place] Bacteria identified Aer cx N om (Unsp spec)Ordered By: Cesilia Rosales on 06-05-2021 Aerobic Culture Citrobacter freundii [facility] Aerobic Culture Pseudomonas aeruginosa [facility] Bacteria identified Anaer cx Nom (Unsp spec)Ordered By: Cesilia Rosales on 06-05-2021 Anaerobic Culture Bacteroides thetaiotaomicron [facility] Basic Metabolic Panelon 05-09 Calcium [Mass/Vol] 8.3 mg/dL Normal 8.2-10.2 [facility] Comment on above: Performed By: #### B ILID, MG, CMP #### [facility] [address] [place] [address] [place] Chloride [Moles/Vol] 101 mmol/L Normal 95-[address] [facility] Comment on above: Performed By: #### B ILID, MG, CMP #### [facility] [address] [place] [address] [place] CO2 [Moles/Vol] 27.5 mmol/L Normal 22.0-30.0 [facility] Comment on above: Performed By: #### B ILID, MG, CMP #### [address] Creatinine [Mass/Vol] 0.69 mg/dL Normal 0.64-1.27 [facility] Comment on above: Performed By: #### B ILID, MG, CMP #### [address] Creatinine Clr Calc Pharmacy 82.34 [facility] Comment on above: Result Comment: PERF ORMED BY: [place] [address] PATHOLOGIST RETORT ENGINEER CHELSY BHAGAT M.D. Performed By: #### B ILID, MG, CMP #### [address] Estimated GFR ( Altagracia > 60 [facility] Comment on above: Result Comment: GFR estimated reference range: According to KDOQI guidelines, <60 ml/min/1.73m2 is sufficient to diagnose a patient with chronic kidney disease. Performed By: #### B ILID, MG, CMP #### [address] Estimated GFR (Non- Am > 60 [facility] Comment on above: Performed By: #### B ILID, MG, CMP #### [address] Glucose [Mass/Vol] 102 mg/dL High 70-100 [facility] Comment on above: Result Comment: [place] Glucose Reference Range is dependent on time and content of last meal. Glucose of more than 200 mg/dL in a nonstressed, ambulatory subject supports the diagnosis of Diabetes Mellitus. ADA recommended reference range Performed By: #### B ILID, MG, CMP #### [address] Potassium [Moles/Vol] 4.1 mmol/L Normal 3.5-5.1 [facility] Comment on above: Performed By: #### B ILID, MG, CMP #### [address] Sodium [Moles/Vol] 137 mmol/L Normal 136-146 [facility] Comment on above: Performed By: #### B ILID, MG, CMP #### [facility] [address] Urea nitrogen [Mass/Vol] 9 mg/dL Normal 9-23 [facility] Comment on above: Performed By: #### B ILID, MG, CMP #### [facility] [address] Basophils Auto (Bld) [#/Vol] Ordered By: Cesilia Rosales on 06-05-2021 Basophils (Bld) [#/Vol] 0.1 10*3/uL 0.0-0.2 [facility] Basophils/100 WBC Auto (Bld) Ordered By: Cesilia Rosales on 06-05-2021 Basophils/100 WBC (Bld) 0.9 % [facility] Blood hemoglobin measurement (mass/volume)Ordered By: Cesilia Rosales on 06-05-2021 Hemoglobin (Bld) [Mass/Vol] 10.3 g/dL 13.0-17.0 [facility] Blood leukocytes automated c ount (number/volume)Ordered By: Cesilia Rosales on 06-05-2021 WBC (Bld) [#/Vol] 8.9 10*3/uL 4.5-11.[address] [facility] [address] biopsyOrdered By: Jackelyn Rajan on 06-05-2021 Transferrin [Mass/Vol] 184 mg/dL 180-380 [facility] Complete Blood Count Auto Di ffon 06-05-2021 Basophils (Bld) [#/Vol] 0.1 10*3/uL Normal 0.0-0.2 [facility] Comment on above: Result Comment: PERF ORMED BY: [facility] [address] [place] [address] PATHOLOGIST RETORT ENGINEER CHELSY BHAGAT M.D. Performed By: #### A ERC #### [facility] [address] Basophils/100 WBC (Bld) 0.9 % Normal . [facility] Comment on above: Performed By: #### A ERC #### [address] Eosinophils (Bld) [#/Vol] 0.6 10*3/uL High 0.0-0.45 [facility] Comment on above: Performed By: #### A ERC #### [address] Eosinophils/100 WBC (Bld) 6.4 % Normal . [facility] Comment on above: Performed By: #### A ERC #### [address] Erythrocyte distribution width (RBC) [Ratio] 14.6 % Normal 12.0-14.8 [facility] Comment on above: Performed By: #### A ERC #### [address] Hematocrit (Bld) [Volume fraction] 31.6 % Low 38.8-50.0 [facility] Comment on above: Performed By: #### A ERC #### [address] Hemoglobin (Bld) [Mass/Vol] 10.3 g/dL Low 13.0-17.0 [facility] Comment on above: Performed By: #### A ERC #### [address] Lymphocytes (Bld) [#/Vol] 2.2 10*3/uL Normal 1.00-4.8 [facility] Comment on above: Performed By: #### A ERC #### [address] Lymphocytes/100 WBC (Bld) 25.2 % Normal . [facility] Comment on above: Performed By: #### A ERC #### [address] MCH (RBC) [Entitic mass] 27.7 pg Normal 27.5-35.2 [facility] Comment on above: Performed By: #### A ERC #### [place] [address] [place] MCV (RBC) [Entitic vol] 85.3 fL Normal 83.5-101 [facility] Comment on above: Performed By: #### A ERC #### [address] Mean Corpuscular HGB Conc 32.5 g/dL Normal 32.5-35.6 [facility] Comment on above: Performed By: #### A ERC #### [address] Monocytes (Bld) [#/Vol] 1.3 10*3/uL High 0.0-0.8 [facility] Comment on above: Performed By: #### A ERC #### [address] Monocytes/100 WBC (Bld) 15.2 % Normal . [facility] Comment on above: Performed By: #### A ERC #### [address] Neutrophils (Bld) [#/Vol] 4.7 10*3/uL Normal 1.8-7.7 [facility] Comment on above: Performed By: #### A ERC #### [address] Neutrophils/100 WBC (Bld) 52.3 % Normal . [facility] Comment on above: Performed By: #### A ERC #### [address] Nucleated RBC/100 WBC (Bld) [Ratio] 0.0 % Normal 0-0.5 [facility] Comment on above: Performed By: #### A ERC #### [address] Platelet mean volume (Bld) [Entitic vol] 6.2 fL Low 6.6-10.1 [facility] Comment on above: Performed By: #### A ERC #### [address] Platelets (Bld) [#/Vol] 665 10*3/uL High 150-450 [facility] Comment on above: Performed By: #### A ERC #### [facility] [address] [place] [address] [place] RBC (Bld) [#/Vol] 3.71 10*6/uL Low 3.90-5.[address] [facility] Comment on above: Performed By: #### A ERC #### [facility] [address] [place] [address] [place] WBC (Bld) [#/Vol] 8.9 10*3/uL Normal 4.5-11.0 [facility] Comment on above: Performed By: #### A ERC #### [facility] [address] Creatinine and Glomerular fi ltration rate.predicted panel (S/P/Bld)Ordered By: Cesilia Rosales on 06-05-2021 Creatinine [Mass/Vol] 0.69 mg/dL 0.64-1.27 [facility] Eosinophils Auto (Bld) [#/Vo l]Ordered By: Cesilia Rosales on 06-05-2021 Eosinophils (Bld) [#/Vol] 0.6 10*3/uL 0.0-0.45 [facility] Eosinophils/100 WBC Auto (Bl d)Ordered By: Cesilia Rosales on 06-05-2021 Eosinophils/100 WBC (Bld) 6.4 % [facility] Erythrocyte distribution wid th Auto (RBC) [Ratio]Ordered By: Cesilia Rosales on 06-05-2021 Erythrocyte distribution width (RBC) [Ratio] 14.6 % 12.0-14.8 [facility] Estimated glomerular filtrat ion rate (GFR) non- AmericanOrdered By: Cesilia Rosales on 06-05-2021 GFR/1.73 sq M.predicted among non-blacks MDRD (S/P/Bld) [Vol rate/Area] > 60 mL/Min [facility] Hematocrit Auto (Bld) [Volum e fraction]Ordered By: Cesilia Rosales on 06-05-2021 Hematocrit (Bld) [Volume fraction] 31.6 % 38.8-50.0 [facility] Iron [Mass/volume] in Serum or PlasmaOrdered By: Jackelyn Ambriz on 06-05-2021 Iron [Mass/Vol] 23 ug/dL 40-160 [facility] Iron and TIBC Profileon 05-09 % Iron Saturation 8.0 % Low 20-50 [facility] Comment on above: Order Comment: Comme nt ok to use previously drawn specimen Performed By: #### A ERC #### [facility] [address] Iron [Mass/Vol] 23 ug/dL Low 40-160 [facility] Comment on above: Order Comment: Comme nt ok to use previously drawn specimen Performed By: #### A ERC #### [facility] [address] [place] [address] Total Iron Binding Capacity 258 ug/dL Normal 255-450 [facility] Comment on above: Order Comment: Comme nt ok to use previously drawn specimen Performed By: #### A ERC #### [facility] [address] [place] [address] Transferrin [Mass/Vol] 184 mg/dL Normal 180-380 [facility] Comment on above: Order Comment: Comme nt ok to use previously drawn specimen Performed By: #### A ERC #### [facility] [address] [place] [address] [place] Iron binding capacity [Mass/ volume] in Serum or PlasmaOrdered By: Jackelyn Ambriz on 06-05-2021 Iron binding capacity [Mass/Vol] 258 ug/dL 255-450 [facility] Iron saturation [Mass Fracti on] in Serum or PlasmaOrdered By: Jackelyn Ambriz on 06-05-2021 Iron saturation [Mass fraction] 8.0 % 20-50 [facility] Laboratory - Hematology and Cell countsOrdered By: Cesilia Rosales on 06-05-2021 Nucleated RBC/100 WBC (Bld) [Ratio] 0.0 % 0-0.5 [facility] Lymphocytes Auto (Bld) [#/Vo l]Ordered By: Cesilia Rosales on 06-05-2021 Lymphocytes (Bld) [#/Vol] 2.2 10*3/uL 1.00-4.8 [facility] Lymphocytes/100 WBC Auto (Bl d)Ordered By: Cesilia Rosales on 06-05-2021 Lymphocytes/100 WBC (Bld) 25.2 % [facility] MCH Auto (RBC) [Entitic mass ]Ordered By: Cesilia Rosales on 06-05-2021 MCH (RBC) [Entitic mass] 27.7 pg 27.5-35.2 [facility] MCHC Auto (RBC) [Mass/Vol]Or dered By: Cesilia Rosales on 06-05-2021 MCHC (RBC) [Mass/Vol] 32.5 g/dL 32.5-35.6 [facility] MCV Auto (RBC) [Entitic vol] Ordered By: Cesilia Rosales on 06-05-2021 MCV (RBC) [Entitic vol] 85.3 fL 83.5-101 [facility] Monocytes Auto (Bld) [#/Vol] Ordered By: Cesilia Rosales on 06-05-2021 Monocytes (Bld) [#/Vol] 1.3 10*3/uL 0.0-0.8 [facility] Monocytes/100 WBC Auto (Bld) Ordered By: Cesilia Rosales on 06-05-2021 Monocytes/100 WBC (Bld) 15.2 % [facility] Neutrophils Auto (Bld) [#/Vo l]Ordered By: Cesilia Rosales on 06-05-2021 Neutrophils (Bld) [#/Vol] 4.7 10*3/uL 1.8-7.7 [facility] Neutrophils/100 WBC Auto (Bl d)Ordered By: Cesilia Rosales on 06-05-2021 Neutrophils/100 WBC (Bld) 52.3 % [facility] No Panel InformationOrdered By: Cesilia Rosales on 06-05-2021 Estimated GFR () > 60 mL/Min [facility] Comment on above: GFR estimated refere nce range: According to KDOQI guidelines, <60 ml/min/1.73m2 is sufficient to diagnose a patient with chronic kidney disease. Pharmacy Creatinine Clearance (Chem 82.34 [facility] Platelet mean volume Auto (B ld) [Entitic vol]Ordered By: Cesilia Rosales on 06-05-2021 Platelet mean volume (Bld) [Entitic vol] 6.2 fL 6.6-10.1 [facility] Platelets Auto (Bld) [#/Vol] Ordered By: Cesilia Rosales on 06-05-2021 Platelets (Bld) [#/Vol] 665 10*3/uL 150-450 [facility] Prealbuminon 06-05-2021 Prealbumin [Mass/Vol] 10.0 mg/dL Low 18.0-38.0 [facility] Comment on above: Order Comment: Comme nt ok to use previously drawn specimen Result Comment: PERF ORMED BY: [place] [address] PATHOLOGIST RETORT ENGINEER CHELSY BHAGAT M.D. Performed By: #### A ERC #### [address] RBC Auto (Bld) [#/Vol]Ordere d By: Cesilia Rosales on 06-05-2021 RBC (Bld) [#/Vol] 3.71 10*6/uL 3.90-5.[address] [facility] Serum or plasma calcium kirstie urement (mass/volume)Ordered By: Cesilia Rosales on 06-05-2021 Calcium [Mass/Vol] 8.3 mg/dL 8.2-10.2 [facility] Serum or plasma chloride codie surement (moles/volume)Ordered By: Cesilia Rosales on 06-05-2021 Chloride [Moles/Vol] 101 mmol/L 95-[address] [facility] Serum or plasma glucose kirstie urement (mass/volume)Ordered By: Cesilia Rosales on 06-05-2021 Glucose [Mass/Vol] 102 mg/dL 70-100 [facility] Comment on above: ADA recommended refe rence range Random Glucose Reference Range is dependent on time and content of last meal. Glucose of more than 200 mg/dL in a nonstressed, ambulatory subject supports the diagnosis of Diabetes Mellitus. Serum or plasma potassium me asurement (moles/volume)Ordered By: Cesilia Rosales on 06-05-2021 Potassium [Moles/Vol] 4.1 mmol/L 3.5-5.1 [facility] Serum or plasma prealbumin m easurement (mass/volume)Ordered By: Jackelyn Ambriz on 06-05-2021 Prealbumin [Mass/Vol] 10.0 mg/dL 18.0-38.0 [facility] Serum or plasma sodium measu rement (moles/volume)Ordered By: Cesilia Rosales on 06-05-2021 Sodium [Moles/Vol] 137 mmol/L 136-146 [facility] Serum or plasma total carbon dioxide measurement (moles/volume)Ordered By: Cesilia Rosales on 06-05-2021 CO2 [Moles/Vol] 27.5 mmol/L 22.0-30.0 [facility] Serum or plasma urea nitroge n measurement (mass/volume)Ordered By: Cesilia Rosales on 06-05-2021 Urea nitrogen [Mass/Vol] 9 mg/dL 9-23 [facility] Albumin [Mass/volume] in Ser um or PlasmaOrdered By: Horace Palafox on 05-28-2021 Albumin [Mass/Vol] 1.8 g/dL 3.2-5.5 [facility] Globulin Calc (S) [Mass/Vol] Ordered By: Horace Palafox on 05-28-2021 Globulin (S) [Mass/Vol] 3.1 g/dL [facility] Protein [Mass/volume] in Ser um or PlasmaOrdered By: Horace Palafox on 05-28-2021 Protein [Mass/Vol] 4.9 g/dL 6.1-7.9 [facility] Serum or plasma alanine miranda otransferase measurement without P-5'-P (enzymatic activiOrdered By: Horace Palafox on 05-28-2021 ALT No additional P-5'-P [Catalytic activity/Vol] 16 U/L 10-60 [facility] Serum or plasma albumin/glob ulin mass ratioOrdered By: Horace Palafox on 05-28-2021 Albumin/Globulin [Mass ratio] 0.6 {ratio} [facility] Serum or plasma alkaline pawel sphatase measurement (enzymatic activity/volume)Ordered By: Horace Palafox on 05-28-2021 ALP [Catalytic activity/Vol] 56 U/L 32-92 [facility] Serum or plasma aspartate am inotransferase measurement (enzymatic activity/volume)Ordered By: Horace Palafox on 05-28-2021 AST [Catalytic activity/Vol] 18 U/L 10-42 [facility] Serum or plasma total biliru bin measurement (mass/volume)Ordered By: Horace Palafox on 05-28-2021 Bilirubin [Mass/Vol] 0.4 mg/dL 0.3-1.[address] [facility] COVID-19 SOFIAOrdered By: Jj Cash on 05-27-2021 SARS-CoV+SARS-CoV-2 (COVID-19) Ag IA.rapid Ql (Resp) Negative Negative [facility] Comment on above: This is a duplicate Becky SARS Antigen (HERBIE) result to be used for statistical tracking purpose only. No Panel InformationOrdered By: Soham Cash on 05-27-2021 SARS Antigen (LFIA) [facility] Automated erythrocytes count in urine sediment (number/area)Ordered By: Antonieta Combs on 05-24-2021 RBC Auto (Urine sed) [#/Area] 3-4 [HPF] [facility] Automated leukocytes count i n urine sediment (number/area)Ordered By: Antonieta Combs on 05-24-2021 WBC Auto (Urine sed) [#/Area] 0-1 [HPF] [facility] Bacterial blood cultureOrder ed By: Antonieta Combs on 05-24-2021 Bacteria identified Cx Nom (Bld) [facility] Basophils Auto (Bld) [#/Vol] Ordered By: Soham Cash on 05-24-2021 Basophils (Bld) [#/Vol] 0.0 10*3/uL 0.0-0.2 [facility] Basophils/100 WBC Auto (Bld) Ordered By: Soham Cash on 05-24-2021 Basophils/100 WBC (Bld) 0.4 % [facility] Bilirubin Test strip Ql (U)O rdered By: Antonieta Combs on 05-24-2021 Bilirubin Ql (U) Negative Negative [facility] Blood hemoglobin measurement (mass/volume)Ordered By: Soham Cash on 05-24-2021 Hemoglobin (Bld) [Mass/Vol] 12.6 g/dL 13.0-17.0 [facility] Blood leukocytes automated c ount (number/volume)Ordered By: Soham Cash on 05-24-2021 WBC (Bld) [#/Vol] 11.0 10*3/uL 4.5-11.[address] [facility] Color Auto (U)Ordered By: Rogerio Combs on 05-24-2021 Color (U) Yellow Yellow [facility] Creatinine and Glomerular fi ltration rate.predicted panel (S/P/Bld)Ordered By: Soham Cash on 05-24-2021 Creatinine [Mass/Vol] 0.86 mg/dL 0.64-1.27 [facility] Eosinophils Auto (Bld) [#/Vo l]Ordered By: Soham Cash on 05-24-2021 Eosinophils (Bld) [#/Vol] 0.3 10*3/uL 0.0-0.45 [facility] Eosinophils/100 WBC Auto (Bl d)Ordered By: Soham Cash on 05-24-2021 Eosinophils/100 WBC (Bld) 2.6 % [facility] Erythrocyte distribution wid th Auto (RBC) [Ratio]Ordered By: Soham Cash on 05-24-2021 Erythrocyte distribution width (RBC) [Ratio] 15.0 % 12.0-14.8 [facility] Estimated glomerular filtrat ion rate (GFR) non- AmericanOrdered By: Soham Cash on 05-24-2021 GFR/1.73 sq M.predicted among non-blacks MDRD (S/P/Bld) [Vol rate/Area] > 60 mL/Min [facility] Hematocrit Auto (Bld) [Volum e fraction]Ordered By: Soham Cash on 05-24-2021 Hematocrit (Bld) [Volume fraction] 38.4 % 38.8-50.0 [facility] Ketones Auto test strip (U) [Mass/Vol]Ordered By: Antonieta Combs on 05-24-2021 Ketones (U) [Mass/Vol] Negative [facility] - Hematology and Cell countsOrdered By: Soham Cash on 05-24-2021 Nucleated RBC/100 WBC (Bld) [Ratio] 0.0 % 0-0.5 [facility] Laboratory - UrinalysisOrder ed By: Antonieta Combs on 05-24-2021 Hyaline casts LM Ql (Urine sed) None seen [LPF] [facility] Lymphocytes Auto (Bld) [#/Vo l]Ordered By: Soham Cash on 05-24-2021 Lymphocytes (Bld) [#/Vol] 1.6 10*3/uL 1.00-4.8 [facility] Lymphocytes/100 WBC Auto (Bl d)Ordered By: Soham Cash on 05-24-2021 Lymphocytes/100 WBC (Bld) 14.1 % [facility] MCH Auto (RBC) [Entitic mass ]Ordered By: Soham Cash on 05-24-2021 MCH (RBC) [Entitic mass] 28.4 pg 27.5-35.2 [facility] MCHC Auto (RBC) [Mass/Vol]Or dered By: Soham Cash on 05-24-2021 MCHC (RBC) [Mass/Vol] 32.9 g/dL 32.5-35.6 [facility] MCV Auto (RBC) [Entitic vol] Ordered By: Soham Cash on 05-24-2021 MCV (RBC) [Entitic vol] 86.3 fL 83.5-101 [facility] Monocytes Auto (Bld) [#/Vol] Ordered By: Soham Cash on 05-24-2021 Monocytes (Bld) [#/Vol] 1.6 10*3/uL 0.0-0.8 [facility] Monocytes/100 WBC Auto (Bld) Ordered By: Soham Cash on 05-24-2021 Monocytes/100 WBC (Bld) 14.9 % [facility] Neutrophils Auto (Bld) [#/Vo l]Ordered By: Soham Cash on 05-24-2021 Neutrophils (Bld) [#/Vol] 7.5 10*3/uL 1.8-7.7 [facility] Neutrophils/100 WBC Auto (Bl d)Ordered By: Soham Cash on 05-24-2021 Neutrophils/100 WBC (Bld) 68.0 % [facility] Nitrite Test strip Ql (U)Ord ered By: Antonieta Combs on 05-24-2021 Nitrite Ql (U) Negative Negative [facility] No Panel InformationOrdered By: Soham Cash on 05-24-2021 Estimated GFR () > 60 mL/Min [facility] Comment on above: GFR estimated refere nce range: According to KDOQI guidelines, <60 ml/min/1.73m2 is sufficient to diagnose a patient with chronic kidney disease. Pharmacy Creatinine Clearance (Chem 118.55 [facility] Platelet mean volume Auto (B ld) [Entitic vol]Ordered By: Soham Cash on 05-24-2021 Platelet mean volume (Bld) [Entitic vol] 7.8 fL 6.6-10.1 [facility] Platelets Auto (Bld) [#/Vol] Ordered By: Soham Cash on 05-24-2021 Platelets (Bld) [#/Vol] 227 10*3/uL 150-450 [facility] Protein Auto test strip (U) [Mass/Vol]Ordered By: Antonieta Combs on 05-24-2021 Protein (U) [Mass/Vol] Trace mg/dL Negative [facility] RBC Auto (Bld) [#/Vol]Ordere d By: Soham Cash on 05-24-2021 RBC (Bld) [#/Vol] 4.45 10*6/uL 3.90-5.[address] [facility] Serum or plasma calcium kirstie urement (mass/volume)Ordered By: Soham Cash on 05-24-2021 Calcium [Mass/Vol] 8.4 mg/dL 8.2-10.2 [facility] Serum or plasma chloride codie surement (moles/volume)Ordered By: Soham Cash on 05-24-2021 Chloride [Moles/Vol] 102 mmol/L 95-[address] [facility] Serum or plasma glucose kirstie urement (mass/volume)Ordered By: Soham Cash on 05-24-2021 Glucose [Mass/Vol] 99 mg/dL 70-100 [facility] Comment on above: ADA recommended refe [...] on 05-24-2021 Potassium [Moles/Vol] 4.3 mmol/L 3.5-5.1 [facility] Serum or plasma sodium measu rement (moles/volume)Ordered By: Soham Cash on 05-24-2021 Sodium [Moles/Vol] 136 mmol/L 136-146 [facility] Serum or plasma total carbon dioxide measurement (moles/volume)Ordered By: Soham Cash on 05-24-2021 CO2 [Moles/Vol] 26.4 mmol/L 22.0-30.0 [facility] Serum or plasma urea nitroge n measurement (mass/volume)Ordered By: Soham Cash on 05-24-2021 Urea nitrogen [Mass/Vol] 9 mg/dL 9-23 [facility] Specific gravity Auto test s trip (U) [Rel density]Ordered By: Antonieta Combs on 05-24-2021 Specific gravity (U) [Rel density] 1.007 1.001-1.03 0 [facility] Squamous epithelial cells de tection in urine sediment by light microscopyOrdered By: Antonieta Combs on 05-24-2021 Epithelial cells.squamous LM Ql (Urine sed) None seen [HPF] [facility] Urine bacteria detection by automated methodOrdered By: Antonieta Combs on 05-24-2021 Bacteria Auto Ql (U) None seen None Seen [facility] Urine clarity by refractomet ry automatedOrdered By: Antonieta Combs on 05-24-2021 Clarity Refractometry automated (U) Clear Clear [facility] Urine glucose measurement by automated test strip (mass/volume)Ordered By: Antonieta Combs on 05-24-2021 Glucose Auto test strip (U) [Mass/Vol] Normal mg/dL Normal [facility] Urine hemoglobin detection b y automated test stripOrdered By: Antonietanegro Combs on 05-24-2021 Hemoglobin Auto test strip Ql (U) 1+ Negative [facility] Urine leukocyte esterase det ection by automated test stripOrdered By: Antonietanegro Combs on 05-24-2021 Leukocyte esterase Auto test strip Ql (U) 1+ Negative [facility] Urobilinogen Auto test strip (U) [Mass/Vol]Ordered By: Antonieta Combs on 05-24-2021 Urobilinogen (U) [Mass/Vol] Normal mg/dL Normal [facility] pH Auto test strip (U)Ordere d By: Antonieta Combs on 05-24-2021 pH (U) 6.5 [pH] 5.0-9.0 [facility] TSH DL <= 0.005 mIU/L QnOrde red By: Antonieta Combs on 05-23-2021 TSH Qn 0.86 m[IU]/L 0.45-5.33 [facility] CULTURE URINEon 05-19-2021 CULTURE URINE Culture Observations : No growth Normal [facility] Comment on above: Performed By: #### B MP #### [facility] [address] [place] [address] Dr. Chapin Beck [facility]08 SARS-CoV-2 (COVID-19) RNA VITA+probe Ql (Unsp spec) Not detected Normal NOT DETECTED [facility] Comment on above: Result Comment: This test is not yet approved or cleared by the [place] FDA. When there are no FDA-approved or cleared tests available, and other criteria are met, FDA can make tests available under an emergency access mechanism called an Emergency Use Authorization (EUA). The EUA for this test is supported by the [employer] Client Services of Health and Human Service's (HHS's) declaration [...] SARS-CoV-2. Performed By: #### B MP #### [facility] [address] [place] [address] Dr. 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 Chapin Beck Clarity (U) CLEAR Normal CLEAR [facility] Comment on above: Performed By: #### U MICRO, UACSIND #### [facility] [address] [place] [address] Dr. Chapin Beck Color (U) LT. YELLOW Normal YELLOW [facility] Comment on above: Performed By: #### U MICRO, UACSIND #### [facility] [address] [place] [address] Dr. Chapin Beck Glucose Ql (U) Negative Normal NEGATIVE [facility] Comment on above: Performed By: #### U MICRO, UACSIND #### [facility] [address] [place] [address] Dr. Chapin Beck Hemoglobin Ql (U) MODERATE Abnormal NEGATIVE [facility] Comment on above: Performed By: #### U MICRO, UACSIND #### [facility] [address] [place] [address] Dr. Chapin Beck Ketones Ql (U) Negative Normal NEGATIVE [facility] Comment on above: Performed By: #### U MICRO, UACSIND #### [facility] [address] [place] [address] Dr. Chapin Beck LEUKOCYTES Negative Normal NEGATIVE [facility] Comment on above: Performed By: #### U MICRO, UACSIND #### [facility] [address] [place] [address] Dr. Chapin Beck Nitrite Ql (U) Negative Normal NEGATIVE [facility] Comment on above: Performed By: #### U MICRO, UACSIND #### [facility] [address] [address] [address] Chapin Beck pH (U) 6.0 [pH] Normal 5-9 [facility] Comment on above: Performed By: #### U MICRO, UACSIND #### [facility] [address] [address] [address] Chapin Beck SPEC GRAVITY 1.010 Normal 1.005-<=1. 025 [facility] Comment on above: Performed By: #### U MICRO, UACSIND #### [facility] [address] [address] [address] Chapin Beck UA PROTEIN Negative Normal NEGATIVE/ TRACE [facility] Comment on above: Performed By: #### U MICRO, UACSIND #### [facility] [address] [place] [address] Dr. Chapin Beck UR MICRO IND INDICATED Normal [facility] Comment on above: Performed By: #### U MICRO, UACSIND #### [facility] [address] [place] [address] Dr. Chapin Beck Urobilinogen Qn (U) 0.2 {Sami'U}/dL Normal 0.2 - 1. 0 [facility] Comment on above: Performed By: #### U MICRO, UACSIND #### [facility] [address] [place] [address] Dr. Chapin Beck URINE MICROSCOPIC ONLYon BACTERIA SMALL Abnormal NONE SEEN [facility] Comment on above: Performed By: #### U MICRO, UACSIND #### [facility] [address] [place] [address] Dr. Chapin Beck Bacteria identified Cx Nom (U) INDICATED Normal [facility] Comment on above: Performed By: #### U MICRO, UACSIND #### [facility] [address] [place] [address] Dr. Chapin Beck CAST NONE SEEN Normal NONE SEEN [facility] Comment on above: Performed By: #### U MICRO, UACSIND #### [facility] [address] [address] [address] Chapin Beck Crystals LM Nom (Urine sed) NONE SEEN Normal NONE SEEN [facility] Comment on above: Performed By: #### U MICRO, UACSIND #### [facility] [address] [address] [address] Chapin Beck Epithelial cells LM Ql (Urine sed) NONE SEEN Normal NONE SEEN /RARE [facility] Comment on above: Performed By: #### U MICRO, UACSIND #### [facility] [address] [address] [address] Chapin Beck MUCOUS NONE SEEN Normal NONE SEEN [facility] Comment on above: Performed By: #### U MICRO, UACSIND #### [facility] [address] [address] [address] Chapin Beck RBC 75-100 Abnormal 0-2 [facility] Comment on above: Performed By: #### U MICRO, UACSIND #### [facility] [address] [address] [address] Chapin Beck WBC 0-2 Abnormal NONE SEEN [facility] Comment on above: Performed By: #### U MICRO, UACSIND #### [facility] [address] [address] [address] Chapin Beck Automated erythrocytes count in urine sediment (number/area)Ordered By: Soham Cash on 05-06-2021 RBC Auto (Urine sed) [#/Area] None seen [HPF] [facility] Automated leukocytes count i n urine sediment (number/area)Ordered By: Soham Cash on 05-06-2021 WBC Auto (Urine sed) [#/Area] 50-100 [HPF] [facility] Bilirubin Test strip Ql (U)O rdered By: Soham Cash on 05-06-2021 Bilirubin Ql (U) Negative Negative [facility] Color Auto (U)Ordered By: Jj Cash on 05-06-2021 Color (U) Yellow Yellow [facility] Ketones Auto test strip (U) [Mass/Vol]Ordered By: Soham Cash on 05-06-2021 Ketones (U) [Mass/Vol] Negative [facility] - UrinalysisOrder ed By: Soham Cash on 05-06-2021 Hyaline casts LM Ql (Urine sed) 0-8 [LPF] [facility] Nitrite Test strip Ql (U)Ord ered By: Soham Cash on 05-06-2021 Nitrite Ql (U) Positive Negative [facility] Protein Auto test strip (U) [Mass/Vol]Ordered By: Soham Cash on 05-06-2021 Protein (U) [Mass/Vol] Negative Negative [facility] Specific gravity Auto test s trip (U) [Rel density]Ordered By: Soham Cash on 05-06-2021 Specific gravity (U) [Rel density] 1.022 1.001-1.03 0 [facility] Squamous epithelial cells de tection in urine sediment by light microscopyOrdered By: Soham Cash on 05-06-2021 Epithelial cells.squamous LM Ql (Urine sed) None seen [HPF] [facility] Urine bacteria detection by automated methodOrdered By: Soham Cash on 05-06-2021 Bacteria Auto Ql (U) 4+ None Seen [facility] Urine clarity by refractomet ry automatedOrdered By: Soham Cash on 05-06-2021 Clarity Refractometry automated (U) Cloudy Clear [facility] Urine culture routineOrdered By: Soham Cash on 05-06-2021 Bacteria identified Cx Nom (U) Klebsiella pneumoniae [facility] Urine glucose measurement by automated test strip (mass/volume)Ordered By: Soham Cash on 05-06-2021 Glucose Auto test strip (U) [Mass/Vol] Normal mg/dL Normal [facility] Urine hemoglobin detection b y automated test stripOrdered By: Soham Cash on 05-06-2021 Hemoglobin Auto test strip Ql (U) Negative Negative [facility] Urine leukocyte esterase det ection by automated test stripOrdered By: Soham Cash on 05-06-2021 Leukocyte esterase Auto test strip Ql (U) 3+ Negative [facility] Urobilinogen Auto test strip (U) [Mass/Vol]Ordered By: Soham Cash on 05-06-2021 Urobilinogen (U) [Mass/Vol] Normal mg/dL Normal [facility] pH Auto test strip (U)Ordere d By: Soham Cash on 05-06-2021 pH (U) 5.0 [pH] 5.0-9.0 [facility] Basophils Auto (Bld) [#/Vol] Ordered By: Soham Cash on 05-05-2021 Basophils (Bld) [#/Vol] 0.0 10*3/uL 0.0-0.2 [facility] Basophils/100 WBC Auto (Bld) Ordered By: Soham Cash on 05-05-2021 Basophils/100 WBC (Bld) 0.7 % [facility] Blood hemoglobin measurement (mass/volume)Ordered By: Soham Cash on 05-05-2021 Hemoglobin (Bld) [Mass/Vol] 14.1 g/dL 13.0-17.0 [facility] Blood leukocytes automated c ount (number/volume)Ordered By: Soham Cash on 05-05-2021 WBC (Bld) [#/Vol] 7.1 10*3/uL 4.5-11.0 [facility] Creatinine and Glomerular fi ltration rate.predicted panel (S/P/Bld)Ordered By: Soham Cash on 05-05-2021 Creatinine [Mass/Vol] 0.75 mg/dL 0.64-1.27 [facility] Eosinophils Auto (Bld) [#/Vo l]Ordered By: Soham Cash on 05-05-2021 Eosinophils (Bld) [#/Vol] 0.4 10*3/uL 0.0-0.45 [facility] Eosinophils/100 WBC Auto (Bl d)Ordered By: Soham Cash on 05-05-2021 Eosinophils/100 WBC (Bld) 5.3 % [facility] Erythrocyte distribution wid th Auto (RBC) [Ratio]Ordered By: Soham Cash on 05-05-2021 Erythrocyte distribution width (RBC) [Ratio] 14.9 % 12.0-14.8 [facility] Estimated glomerular filtrat ion rate (GFR) non- AmericanOrdered By: Soham Cash on 05-05-2021 GFR/1.73 sq M.predicted among non-blacks MDRD (S/P/Bld) [Vol rate/Area] > 60 mL/Min [facility] Hematocrit Auto (Bld) [Volum e fraction]Ordered By: Soham Cash on 05-05-2021 Hematocrit (Bld) [Volume fraction] 44.2 % 38.8-50.0 [facility] Laboratory - Hematology and Cell countsOrdered By: Soham Cash on 05-05-2021 Nucleated RBC/100 WBC (Bld) [Ratio] 0.1 % 0-0.5 [facility] Lymphocytes Auto (Bld) [#/Vo l]Ordered By: Soham Cash on 05-05-2021 Lymphocytes (Bld) [#/Vol] 1.9 10*3/uL 1.00-4.8 [facility] Lymphocytes/100 WBC Auto (Bl d)Ordered By: Soham Cash on 05-05-2021 Lymphocytes/100 WBC (Bld) 26.9 % [facility] MCH Auto (RBC) [Entitic mass ]Ordered By: Soham Cash on 05-05-2021 MCH (RBC) [Entitic mass] 27.7 pg 27.5-35.2 [facility] MCHC Auto (RBC) [Mass/Vol]Or dered By: Soham Cash on 05-05-2021 MCHC (RBC) [Mass/Vol] 32.0 g/dL 32.5-35.6 [facility] MCV Auto (RBC) [Entitic vol] Ordered By: Soham Cash on 05-05-2021 MCV (RBC) [Entitic vol] 86.8 fL 83.5-101 [facility] Monocytes Auto (Bld) [#/Vol] Ordered By: Soham Cash on 05-05-2021 Monocytes (Bld) [#/Vol] 0.9 10*3/uL 0.0-0.8 [facility] Monocytes/100 WBC Auto (Bld) Ordered By: Soham Cash on 05-05-2021 Monocytes/100 WBC (Bld) 12.5 % [facility] Neutrophils Auto (Bld) [#/Vo l]Ordered By: Soham Cash on 05-05-2021 Neutrophils (Bld) [#/Vol] 3.9 10*3/uL 1.8-7.7 [facility] Neutrophils/100 WBC Auto (Bl d)Ordered By: Soham Cash on 05-05-2021 Neutrophils/100 WBC (Bld) 54.6 % [facility] No Panel InformationOrdered By: Soham Cash on 05-05-2021 Estimated GFR () > 60 mL/Min [facility] Comment on above: GFR estimated refere nce range: According to KDOQI guidelines, <60 ml/min/1.73m2 is sufficient to diagnose a patient with chronic kidney disease. Pharmacy Creatinine Clearance (Chem N/A [facility] Platelet mean volume Auto (B ld) [Entitic vol]Ordered By: Soham Cash on 05-05-2021 Platelet mean volume (Bld) [Entitic vol] 7.3 fL 6.6-10.1 [facility] Platelets Auto (Bld) [#/Vol] Ordered By: Soham Cash on 05-05-2021 Platelets (Bld) [#/Vol] 298 10*3/uL 150-450 [facility] RBC Auto (Bld) [#/Vol]Ordere d By: Soham Cash on 05-05-2021 RBC (Bld) [#/Vol] 5.09 10*6/uL 3.90-5.[address] [facility] Serum or plasma calcium kirstie urement (mass/volume)Ordered By: Soham Cash on 05-05-2021 Calcium [Mass/Vol] 9.1 mg/dL 8.2-10.2 [facility] Serum or plasma chloride codie surement (moles/volume)Ordered By: Soham Cash on 05-05-2021 Chloride [Moles/Vol] 101 mmol/L 95-[address] [facility] Serum or plasma glucose kirstie urement (mass/volume)Ordered By: Soham Cash on 05-05-2021 Glucose [Mass/Vol] 106 mg/dL 70-100 [facility] Comment on above: ADA recommended refe [...] on 05-05-2021 Potassium [Moles/Vol] 4.6 mmol/L 3.5-5.1 [facility] Serum or plasma sodium measu rement (moles/volume)Ordered By: Soham Cash on 05-05-2021 Sodium [Moles/Vol] 136 mmol/L 136-146 [facility] Serum or plasma total carbon dioxide measurement (moles/volume)Ordered By: Soham Cash on 05-05-2021 CO2 [Moles/Vol] 25.3 mmol/L 22.0-30.0 [facility] Serum or plasma urea nitroge n measurement (mass/volume)Ordered By: Soham Cash on 05-05-2021 Urea nitrogen [Mass/Vol] 13 mg/dL 9-23 [facility] Office Visit (Cardiology)on 02-18-2021 Follow-up visit [...] By signing my name below, Dali Denis Lpn,Scribe, attest that this documentation has been prepared [...] FOR CHEST PAIN.CALL 911 IF PAIN PERSISTS. [place] 3 [place] DIRECTED. Omeprazole 40 MG Oral [...] Rate74, L Radial Pulse QualityRegular, L Radial [id number], LUE, Sitting [id number], LUE, Sitting Tobacco Useb) No Fall Screeninga) [...] no bru (more content not included)... Normal [employer] Tobacco Screening.on 022 Fall risk assessment a) No falls within the last year [facility] [email or web address] lk 600 DO Work Phone: Heart Rate Regular [facility] [employer] 600 DO Work Phone: Tobacco use status [facility] b) No [facility] [employer] 600 DO Work Phone: Vital Signs Date Time Vital Sign Value Performing Clinician Facility 04-19-2023 15:21-0400 Body height 167.6 cm Sabra Pratt MD Work Phone: [facility] [employer] 04-19-2023 15:21-0400 Body mass index (BMI) [Ratio] 29.05 kg/m2 Sabra Pratt MD Work Phone: [facility] 04-19-2023 15:21-0400 Body weight 81.65 kg Sabra Pratt MD Work Phone: [facility] 04-19-2023 15:21-0400 Diastolic blood pressure 64 mm[Hg] Sabra Pratt MD Work Phone: [facility] 04-19-2023 15:21-0400 Heart rate 70 /min Sabra Pratt MD Work Phone: [facility] 04-19-2023 15:21-0400 Systolic blood pressure 102 mm[Hg] Sabra Pratt MD Work Phone: [facility] 02-16-2023 11:22-0500 Diastolic blood pressure 68 mm[Hg] Pino Dunbar MD Work Phone: [facility] 02-16-2023 11:22-0500 Systolic blood pressure 113 mm[Hg] Pino Dunbar MD Work Phone: [facility] 02-16-2023 10:34-0500 Body height 165.1 cm Pino Dunbar MD Work Phone: [facility] 02-16-2023 10:34-0500 Body mass index (BMI) [Ratio] 30.29 kg/m2 Pino Dunbar MD Work Phone: [facility] 02-16-2023 10:34-0500 Body weight 82.56 kg Pino Dunbar MD Work Phone: [facility] 02-16-2023 10:34-0500 Heart rate 69 /min Pino Dunbar MD Work Phone: [facility] 06-10-2022 13:46-0400 Body height 167.64 cm Ace Abbott Work Phone: [facility] [facility] DO Work Phone: 06-10-2022 13:46-0400 Diastolic blood pressure 58 mm[Hg] Ace M Hoy Work Phone: [facility] [facility] DO Work Phone: 06-10-2022 13:46-0400 Heart rate 57 /min Ace M Hoy Work Phone: [facility] [facility] DO Work Phone: 06-10-2022 13:46-0400 Systolic blood pressure 94 mm[Hg] Ace M Hoy Work Phone: [facility] [facility] DO Work Phone: 06-07-2022 14:09-0400 Body height 167.64 cm Ace M Hoy Work Phone: [facility] [facility] DO Work Phone: 06-07-2022 14:09-0400 Body mass index (BMI) [Ratio] Medical Reason Not Done Ace M Hoy Work Phone: [facility] [facility] DO Work Phone: 06-07-2022 14:09-0400 Diastolic blood pressure 60 mm[Hg] Ace M Hoy Work Phone: [facility] [facility] DO Work Phone: 06-07-2022 14:09-0400 Heart rate 56 /min Ace M Hoy Work Phone: [facility] [facility] DO Work Phone: 06-07-2022 14:09-0400 Systolic blood pressure 98 mm[Hg] Ace M Hoy Work Phone: [facility] [facility] DO Work Phone: 05-29-2022 16:00-0400 Body temperature 98.3 [degF] MD Ace Hoy Work Phone: [facility] 05-29-2022 16:00-0400 Diastolic blood pressure 79 mm[Hg] MD Ace Abbott Work Phone: [facility] 05-29-2022 16:00-0400 Heart rate 61 /min MD Ace Abbott Work Phone: [facility] 05-29-2022 16:00-0400 Respiratory rate 17 /min MD Ace Abbott Work Phone: [facility] 05-29-2022 16:00-0400 SaO2% (BldA) [Mass fraction] 96 % MD Ace Abbott Work Phone: [facility] 05-29-2022 16:00-0400 Systolic blood pressure 122 mm[Hg] MD Ace Abbott Work Phone: [facility] 05-29-2022 06:47-0400 Body weight 77.6 kg MD Ace Abbott Work Phone: [facility] 05-27-2022 14:48-0400 Body height 167.64 cm MD Ace Abbott Work Phone: [facility] 05-25-2022 10:30-0400 Diastolic blood pressure 56 mm[Hg] MD Ace Abbott Work Phone: [facility] 05-25-2022 10:30-0400 Heart rate 63 /min MD Ace Abbott Work Phone: [facility] 05-25-2022 10:30-0400 Respiratory rate 20 /min MD Ace Abbott Work Phone: [facility] 05-25-2022 10:30-0400 SaO2% (BldA) [Mass fraction] 97 % MD Ace Abbott Work Phone: [facility] 05-25-2022 10:30-0400 Systolic blood pressure 117 mm[Hg] MD Ace Abbott Work Phone: [facility] 05-25-2022 06:38-0400 Body height 167.64 cm MD Ace Abbott Work Phone: [facility] 05-25-2022 06:38-0400 Body weight 91 kg MD Ace Abbott Work Phone: [facility] 05-25-2022 06:37-0400 Body temperature 97.4 [degF] MD Ace Abbott Work Phone: [facility] 04-03-2022 11:11-0500 Body temperature 97.7 [degF] MD Ace Abbott Work Phone: [facility] 04-03-2022 11:11-0500 Diastolic blood pressure 50 mm[Hg] MD Ace Abbott Work Phone: [facility] 04-03-2022 11:11-0500 Heart rate 62 /min MD Ace Abbott Work Phone: [facility] 04-03-2022 11:11-0500 Respiratory rate 16 /min MD Ace Abbott Work Phone: [facility] 04-03-2022 11:11-0500 SaO2% (BldA) [Mass fraction] 95 % MD Ace Abbott Work Phone: [facility] 04-03-2022 11:11-0500 Systolic blood pressure 113 mm[Hg] MD Ace Abbott Work Phone: [facility] 03-30-2022 12:16-0500 Body height 165.1 cm MD Ace Abbott Work Phone: [facility] 03-28-2022 06:00-0500 Body weight 89.1 kg MD Ace Abbott Work Phone: [facility] 02-19-2022 09:24-0500 Blood Pressure Location Antoine MEAD [facility] 02-19-2022 09:24-0500 Diastolic blood pressure 68 mm[Hg] Antoine MEAD [facility] 02-19-2022 09:24-0500 Heart rate 69 /min Antoine MEAD [facility] 02-19-2022 09:24-0500 Respiratory rate 16 /min Antoine MEAD [facility] 02-19-2022 09:24-0500 Systolic blood pressure 109 mm[Hg] Antoine MEAD [facility] 12-07-2021 13:00-0400 Body height 167.64 cm MD Ace Abbott Work Phone: [facility] 12-07-2021 13:00-0400 Body temperature 98.7 [degF] MD Ace Abbott Work Phone: [facility] 12-07-2021 13:00-0400 Body weight 83.91 kg MD Ace Abbott Work Phone: [facility] 12-07-2021 13:00-0400 Diastolic blood pressure 71 mm[Hg] MD Ace Abbott Work Phone: [facility] 12-07-2021 13:00-0400 Heart rate 64 /min MD Ace Abbott Work Phone: [facility] 12-07-2021 13:00-0400 Respiratory rate 16 /min MD Ace Abbott Work Phone: [facility] 12-07-2021 13:00-0400 SaO2% (BldA) [Mass fraction] 96 % MD Ace Abbott Work Phone: [facility] 12-07-2021 13:00-0400 Systolic blood pressure 120 mm[Hg] MD Ace Abbott Work Phone: [facility] 08-24-2021 10:39-0400 Body height 167.64 cm MD Ace Abbott Work Phone: [facility] 08-24-2021 10:39-0400 Body mass index (BMI) [Ratio] 29.9 kg/m2 MD Ace Abbott Work Phone: [facility] 08-24-2021 10:39-0400 Body temperature 98.1 [degF] MD Ace Abbott Work Phone: [facility] 08-24-2021 10:39-0400 Body weight 84.36 kg MD Ace Abbott Work Phone: [facility] 08-24-2021 10:39-0400 Diastolic blood pressure 66 mm[Hg] MD Ace Abbott Work Phone: [facility] 08-24-2021 10:39-0400 Heart rate 60 /min MD Ace Abbott Work Phone: [facility] 08-24-2021 10:39-0400 Respiratory rate 16 /min MD Ace Abbott Work Phone: [facility] 08-24-2021 10:39-0400 SaO2% (BldA) [Mass fraction] 95 % MD Ace Abbott Work Phone: [facility] 08-24-2021 10:39-0400 Systolic blood pressure 107 mm[Hg] MD Ace Abbott Work Phone: [facility] 08-04-2021 12:07-0400 Body height 167.64 cm MD Ace Abbott Work Phone: [facility] 08-04-2021 12:07-0400 Body mass index (BMI) [Ratio] 29.7 kg/m2 MD Ace Abbott Work Phone: [facility] 08-04-2021 12:07-0400 Body weight 83.46 kg MD Ace Abbott Work Phone: [facility] 08-04-2021 09:56-0400 Body temperature 97.5 [degF] MD Ace Abbott Work Phone: [facility] 08-04-2021 09:56-0400 Diastolic blood pressure 68 mm[Hg] MD Ace Abbott Work Phone: [facility] 08-04-2021 09:56-0400 Heart rate 61 /min MD Ace Abbott Work Phone: [facility] 08-04-2021 09:56-0400 Respiratory rate 18 /min MD Ace Abbott Work Phone: [facility] 08-04-2021 09:56-0400 Systolic blood pressure 97 mm[Hg] MD Ace Abbott Work Phone: [facility] 06-19-2021 11:00-0400 Diastolic blood pressure 48 mm[Hg] Ace M Hoy Work Phone: [facility] [facility] DO Work Phone: 06-19-2021 10:57-0400 Diastolic blood pressure 58 mm[Hg] Ace M Hoy Work Phone: [facility] [facility] DO Work Phone: 06-19-2021 10:57-0400 Heart rate 68 /min Ace M Hoy Work Phone: [facility] 250 DO Work Phone: 06-19-2021 10:57-0400 Systolic blood pressure 92 mm[Hg] Ace M Hoy Work Phone: [facility] [facility] DO Work Phone: 06-11-2021 10:02-0400 Body temperature 98.3 [degF] MD Ace Abbott Work Phone: [facility] 06-11-2021 10:02-0400 Diastolic blood pressure 69 mm[Hg] MD Ace Abbott Work Phone: [facility] 06-11-2021 10:02-0400 Heart rate 63 /min MD Ace Abbott Work Phone: [facility] 06-11-2021 10:02-0400 Respiratory rate 18 /min MD Ace Abbott Work Phone: [facility] 06-11-2021 10:02-0400 SaO2% (BldA) [Mass fraction] 96 % MD Ace Abbott Work Phone: [facility] 06-11-2021 10:02-0400 Systolic blood pressure 101 mm[Hg] MD Ace Abbott Work Phone: [facility] 06-11-2021 07:35-0400 Body height 167.64 cm MD Ace Abbott Work Phone: [facility] 06-11-2021 06:39-0400 Body weight 92.6 kg MD Ace Abbott Work Phone: [facility] 06-05-2021 05:15-0400 Inhaled oxygen flow rate 2 L/min MD Ace Abbott Work Phone: [facility] 05-27-2021 15:50-0400 Body mass index (BMI) [Ratio] 34.2 kg/m2 MD Ace Abbott Work Phone: [facility] 05-27-2021 14:55-0400 Diastolic blood pressure 66 mm[Hg] MD Ace Abbott Work Phone: [facility] 05-27-2021 14:55-0400 Systolic blood pressure 104 mm[Hg] MD Ace Abbott Work Phone: [facility] 05-27-2021 11:53-0400 Body temperature 97.6 [degF] MD Ace Abbott Work Phone: [facility] 05-27-2021 11:53-0400 Heart rate 69 /min MD Ace Abbott Work Phone: [facility] 05-27-2021 11:53-0400 SaO2% (BldA) [Mass fraction] 94 % MD Ace Abbott Work Phone: [facility] 05-27-2021 06:00-0400 Body weight 97 kg MD Ace Abbott Work Phone: [facility] 05-27-2021 04:00-0400 Respiratory rate 18 /min MD Ace Abbott Work Phone: [facility] 05-25-2021 11:50-0400 Body height 167.64 cm MD Ace Abbott Work Phone: [facility] 05-25-2021 08:21-0400 65 1 Ace M Hoy Work Phone: [facility] [facility] DO Work Phone: Comment on above: [id number] 05-22-2021 15:48-0400 Inhaled oxygen flow rate 8 L/min MD Ace Abbott Work Phone: [facility] 05-22-2021 13:56-0400 Body mass index (BMI) [Ratio] 68.1 kg/m2 MD Ace Abbott Work Phone: [facility] 02-18-2021 11:25-0500 Diastolic blood pressure 76 mm[Hg] Ace Valenzuela Hoy Work Phone: [facility] 600 DO Work Phone: 02-18-2021 11:25-0500 Heart rate 74 /min Ace M Hoy Work Phone: [facility] 600 DO Work Phone: 02-18-2021 11:25-0500 Systolic blood pressure 110 mm[Hg] Ace M Hoy Work Phone: [facility] 600 DO Work Phone: Encounters Encounter Date Encounter Type Care Provider Facility Start: 10-04-2023 End: 10-04-2023 ambulatory SIVAN PRICE Not Available Start: 04-19-2023 End: 04-19-2023 ambulatory SABRA PRATT [facility] Start: 04-19-2023 End: 04-19-2023 Office outpatient visit 15 minutes Sabra Pratt MD Work Phone: [facility] Comment on above: Benign prostatic hyp erplasia, unspecified whether lower urinary tract symptoms present (Primary Dx) Start: 03-31-2023 Refill Sandra Denis Sherin PAVON Work Phone: [facility] Start: 02-16-2023 End: 02-16-2023 [facility] Start: 02-16-2023 End: 02-16-2023 Office outpatient visit 25 minutes Pino Dunbar MD Work Phone: 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; BMI 30.0-30.9,adult Start: 01-20-2023 End: 01-21-2023 ambulatory [facility] Start: 08-23-2022 ambulatory Antoine Ledezma ty:JONATHAN Casanova Start: 07-29-2022 End: 07-30-2022 ambulatory [facility] Start: 06-10-2022 EKG, Provider: LIZET STRATTON CIRCUIT MANAGER 1,[id number], Status: Pen, Time: 1:30 PM Ace Abbott Work Phone: [facility] 250 DO Work Phone: Start: 06-10-2022 Patient encounter procedure Ace M Scar Work Phone: [facility] 250 DO Work Phone: Start: 06-10-[address] Pino Dunbar Facility: Start: 06-07-2022 Patient encounter procedure Ace Nicolas Abbott Work Phone: [facility] [facility] DO Work Phone: Start: 06-07-[address] Pino Dunbar Facility: Start: 05-28-[address] Pino Dunbar Facility:[id number] Start: 05-27-[address] Pino Dunbar Facility:[id number] Start: 05-26-2022 End: 05-29-2022 Evaluation and management of inpatient Delvin Rodriguez Facility:[facility] Start: 05-26-2022 End: 05-29-2022 Evaluation and management of inpatient MD Ace Abbott Work Phone: [facility] Work Phone: Start: 05-25-2022 Evaluation and manag ement of inpatient MD Ace Abbott Work Phone: [facility] Work Phone: Start: 05-25-2022 observation encounter MD Chava Abbott Work Phone: [facility] Work Phone: Start: 03-22-2022 End: 04-03-2022 Evaluation and management of inpatient Horace Javy Facility:[facility] Start: 03-22-2022 End: 04-03-2022 Evaluation and management of inpatient MD Ace Abbott Work Phone: [facility] Work Phone: Start: 03-10-2022 End: 03-10-[address] ACE ABBOTT . Facility: Start: 02-20-2022 End: 02-21-[address] DOCTOR LOMBARDI Facility: Start: 02-19-2022 End: 02-20-2022 ambulatory Antoine MEAD Facility:[facility] Start: 02-19-2022 End: 02-19-2022 Patient encounter procedure Antoine MEAD [facility] Start: 12-26-2021 Encounter for preprocedural laboratory examination DR ACE ABBOTT . [facility] Start: 12-25-2021 End: 12-25-2021 ambulatory MD Ace Abbott Work Phone: [facility] Work Phone: Start: 12-25-2021 End: 12-25-2021 Departed Referred MD [facility] [place] [place] Start: 12-23-2021 End: 12-24-[address] ACE ABBOTT . Facility:[facility] Start: 12-23-2021 End: 12-24-2021 Encounter for preprocedural laboratory examination DR ACE ABBOTT . Facility:[facility] Start: 12-21-2021 End: 12-21-[address] ACE ABBOTT . Facility:[facility] Start: 12-15-2021 End: 12-15-[address] ACE ABBOTT . Facility:[facility] Start: 12-12-2021 End: 12-13-[address] ACE ABBOTT . Facility:[facility] Start: 12-07-2021 End: 12-07-2021 ambulatory Soham Csah Jr Facility:[facility] Start: 12-07-2021 End: 12-07-2021 ambulatory MD Ace Abbott Work Phone: [facility] Work Phone: Start: 12-07-2021 End: 12-07-2021 Patient encounter procedure MD Ace Abbott Work Phone: [facility]-Pre-Surgical Testing Start: 11-24-[address] Pino Dunbar Facility: Start: 10-08-2021 End: 10-09-2021 ambulatory Antoine MEAD Facility:CD:[id number] Start: 10-07-2021 End: 10-11-2021 Evaluation and management of inpatient DR ACE ABBOTT . Facility:[facility] Start: 09-10-2021 End: 09-10-2021 ambulatory Soham Cash Jr Facility:[facility] Start: 09-10-2021 End: 09-10-2021 Departed Referred MD Ace Abbott [facility] [place] Start: 09-07-2021 End: 09-07-[address] ACE ABBOTT . Facility:[facility] Start: 08-24-2021 End: 08-24-2021 ambulatory Soham Cash Jr Facility:[facility] Start: 08-24-2021 End: 08-24-2021 Patient encounter procedure MD Ace Abbott Work Phone: [facility]Pre[facility]Surgical Testing Start: 08-04-2021 End: 08-04-2021 ambulatory Ace Abbott Facility:[facility] Start: 08-04-2021 End: 08-04-2021 Anticoagulant drug monitoring MD Ace Abbott Work Phone: [facility] [place] Start: 07-10-2021 End: 07-11-[address] SIVAN MOTT Facility: Start: 06-19-2021 Office outpatient vi sit 10 minutes Ace Abbott Work Phone: [facility] 250 DO Work Phone: Start: 05-27-2021 End: 06-11-2021 Evaluation and management of inpatient MD Ace Abbott Work Phone: [facility] Start: 05-24-2021 End: 05-27-2021 Evaluation and management of inpatient MD Ace Abbott Work Phone: [facility] Start: 05-19-2021 End: 05-20-2021 ambulatory MR ANNA VALENCIA . Facility: Start: 05-06-2021 End: 05-06-2021 Patient encounter procedure MD Ace Abbott Work Phone: [facility]Pre[facility]Surgical Testing Start: 05-05-2021 End: 05-05-2021 Patient encounter procedure MD Ace Abbott Work Phone: [facility]urgical [facility] Start: 02-18-2021 Office outpatient vi sit 15 minutes Ace Abbott Work Phone: [facility] 600 DO Work Phone: Patient encounter status Ace Abbott Work Phone: [facility] 250 DO Work Phone: Procedures Date Procedure Procedure Detail Performing Clinician Start: 04-19-2023 Follow-up visit Follow-up SABRA PRATT Start: 02-16-2023 ECG 12-LEAD PINO DUNBAR Start: [...] Phone: Start: 05-25-2022 Plain chest X-ray MD Ace Abbott Work Phone: Start: 03-26-2022 Duplex scan of lower limb veins MD Chava Abbott Work Phone: Start: 12-07-2021 Antibody screen Soham Cash Jr Comment on above: Order Comment: Date of Surgery: [id number] # of PRBC units on hold?: 2 Result Comment: PERF ORMED BY: [facility] [address] [place] [address] PATHOLOGIST RETORT ENGINEER CHELSY BHAGAT M.D. Start: 12-07-2021 Plain X-ray of right hip MD Ace Abbott Work Phone: Start: 10-11-2021 Insertion of Infusion Device into Upper Vein, Percutaneous Approach DR ACE ABBOTT . Start: 08-24-2021 Antibody screen Soham Cash Jr Comment on above: Order Comment: Date of Surgery: [id number] # of PRBC units on hold?: 2 Result Comment: PERF ORMED BY: [facility] [address] [place] [address] PATHOLOGIST RETORT ENGINEER CHELSY BHAGAT M.D. Order Comment: Date of Surgery: [id number] # of PRBC units on hold?: 2 Start: 08-24-2021 Plain X-ray of right hip MD Ace Abbott Work Phone: Start: 06-10-2021 SARS Antigen (LFIA) MD Ace Abbott Work Phone: Start: 06-05-2021 Aerobic microbial culture MD Ace Abbott Work Phone: Start: 06-05-2021 Anaerobic microbial culture MD Bello Kenji lailaruth Work Phone: Start: 06-05-2021 Investigation of transfusion reaction MD Ace Abbott Work Phone: Start: 05-27-2021 SARS Antigen (LFIA) MD Ace Abbott Work Phone: Start: 05-24-2021 Blood culture for bacteria, including anaerobic screen MD Ace Abbott Work Phone: Start: 05-24-2021 Plain chest X-ray MD Ace Abbott Work Phone: Start: 05-22-2021 Plain X-ray of left hip MD Ace Abbott Work Phone: Start: 05-22-2021 Revision of left total hip arthroplasty MD Ace Abbott Work Phone: Start: 05-06-2021 Urine culture MD Ace Abbott Work Phone: Cardiac catheterization Julián sandy Abbott Work Phone: Cardiac catheterization Patr saray MEAD Excision of lesion f rom soft tissue of face Antoine MEAD Hernia repair Acesandy Abbott Work Phone: History of hernia repair [...] Office Visit [facility] [address] [place] [address] [facility] [place] [address] Sabra Pratt MD [address] [place] [address] [id number] [facility] Start: 04-18-2024 Adult BMI Screening Adult BMI Screening [facility] Start: 04-18-2024 Tobacco Screening Tobacco Screening [facility] Start: 09-30-2023 Adult BMI Screening Adult BMI Screening [facility] Start: 09-30-2023 Tobacco Screening Tobacco Screening [facility] Start: 09-01-2023 End: 09-01-2023 Patient encounter procedure 09/01/2023 11:20 AM EDT Office Visit [address] [place] [address] Pino Dunbar MD [address] [facility] 2, [facility] [address] [place] [address] [facility] Start: 04-19-2023 End: 04-19-2023 Patient encounter procedure 04/19/2023 3:15 PM EDT Office Visit [facility] [address] [place] [id number] Sabra Pratt MD [address] [place] [id number] [facility] Start: 10-08-2022 Influenza vaccination [facility] Start: 08-31-2022 FUV, Provider: Pino Dunbar, Status: Pen, Time: 10:40 AM FUV, Provider: Pino Dunbar, Status: Pen, Time: 10:40 AM [facility] 250 DO Work Phone: Start: 05-29-2022 [facility] Start: 05-27-2022 Referral to supervisor lathing [facility] Start: 05-27-2022 Referral to architectural associate [facility] Start: 05-26-2022 Referral to general surgeon [facility] Start: 05-25-2022 Hospital admission [facility] Start: 04-02-2022 [facility] Start: 03-22-2022 Hospital admission [facility] Start: 03-22-2022 Referral to clinical machinery engineer [facility] Start: 12-25-2021 Revision of hip arthroplasty OR Total Hip Arthro MIS/Revision (Right) [facility] Start: 11-24-2021 FUV, Provider: Pino Dunbar, Status: Pen, Time: 10:40 AM FUV, Provider: Pino Dunbar, Status: Pen, Time: 10:40 AM [facility] 600 DO Work Phone: Start: 09-10-2021 Revision of hip arthroplasty OR Total Hip Arthro MIS/Revision (Right) [facility] Start: 06-05-2021 Anaerobic microbial culture Anaerobic Culture [facility] Start: 05-24-2021 Blood culture for bacteria, including anaerobic screen Blood Culture [facility] Start: 05-24-2021 Replacement of Left Hip Joint with Metal on Polyethylene Synthetic Substitute, Uncemented, Open Approach [facility] Start: 05-06-2021 Urine culture Urine Culture [facility] Start: 01-20-2021 COVID-19 Vaccine (2 - Booster for Luke series) COVID-19 Vaccine (2 - Booster for Luke series) [facility] Start: 10-20-2008 Fall Risk Screening Fall Risk Screening [facility] Start: 10-20-1993 Administration of varicella zoster vaccine Zoster (Shingles) Vaccine (1 of 2) [facility] Start: 10-20-1993 Zoster Vaccines (1 of 2) Zoster Vaccines (1 of 2) [facility] Start: 10-20-1965 DTaP/Tdap/Td Vaccines (1 - Tdap) DTaP/Tdap/Td Vaccines (1 - Tdap) [facility] Start: 10-20-1962 DTaP,Tdap and Td Vaccines (1 - Tdap) DTaP,Tdap and Td Vaccines (1 - Tdap) [facility] Start: 10-20-1961 Adult BMI Follow Up Plan Adult BMI Follow Up Plan [facility] Start: 10-20-1961 Diabetes mellitus screening Diabetes Screening [facility] Start: 10-20-1961 Hepatitis C screening Hepatitis C Screening [facility] Start: 1955 Depression Screening Depression Screening [facility] Start: 10-20-1949 Pneumococcal Vaccine: 65+ Years (1 - PCV) Pneumococcal Vaccine: 65+ Years (1 - PCV) [facility] Start: 1945 Lipid panel Lipid Panel [facility] Start: 1945 Medicare Annual Wellness Visit [facility] Bacteria identified in Urine by Culture [facility] Work Phone: Bilirubin measurement, urine [facility] Work Phone: Color of Urine [facility] Work Phone: Detection of hemoglobin [facility] Work Phone: Glucose [Mass/volume ] in Urine by Test strip [facility] Work Phone: Measurement of keton es in urine using dipstick [facility] Work Phone: Patient Education [facility] Work Phone: Patient referral [facility] Work Phone: Protein measurement, urine [facility] Work Phone: Urinalysis, specific gravity measurement [facility] Work Phone: Urine dipstick for nitrite [place] [facility] Work Phone: Urine dipstick for s pecific gravity [facility] Work Phone: Urine pH test [facility] Work Phone: Urobilinogen concent ration, test strip measurement [facility] Work Phone: [facility] Immunizations Immunization Date Immunization Notes Care Provider Fa cility 09-15-2021 COVID-19 mRNAChely (Pfizer) MD Ace Abbott Work Phone: [facility] 01-20-2021 COVID-19 mRNAChely (Pfizer) MD Ace Abbott Work Phone: [facility] 01-20-2021 SARS-CoV-2 mRNA (tozinameran 5y-11y) vaccine Antoine MEAD [facility] 10-28-2020 influenza virus vacc ine, unspecified formulation Antoine MEAD [facility] 04-24-2020 Luke COVID-19 Vac cine 0.5 ML Intramuscular Suspension Ace Abbott Work Phone: [facility] 600 DO Work Phone: 04-14-2020 COVID-19 Ad26.COV2.S (Luke) MD Ace Abbott Work Phone: [facility] 04-14-2020 SARS-CoV-2 mRNA (tozinameran 5y-11y) vaccine Antoine MEAD [facility] 11-08-2019 influenza virus vacc ine, unspecified formulation Ace Abbott Work Phone: [facility] 600 DO Work Phone: Payers Date Payer Category Payer Unknown 2021 Self-pay [id number] 2021 Unknown [id number] 2017 Private Health Insurance [facility] SUPPLEMENT [id number] 2017-Present [phone] [address] [place] [address] [id number] 2008 Medicare [id number] 1959 Medicare [id number] 1959 Unknown [id number] 1943 Unknown [id number] 2.16.840.1.007403.3.579.2 .593 1943 Unknown [id number] 2.16.840.1.108795.3.579.2 .593 1943 Unknown [id number] 2.16.840.1.603140.3.579.2 .593 1943 Unknown [id number] 2.16.840.1.692432.3.579.2 .593 1943 Unknown [id number] 2.16.840.1.926563.3.579.2 .593 1943 Unknown [id number] 2.16.840.1.297225.3.579.2 .593 1943 Unknown [id number] 2.16.840.1.151107.3.579.2 .593 1943 Unknown [id number] 2.16.840.1.031988.3.579.2 .593 1943 Unknown [id number] 2.16.840.1.933486.3.579.2 .593 1943 Unknown [id number] 2.16.840.1.069124.3.579.2 .593 1943 Unknown [id number] 2.16.840.1.011794.3.579.2 .593 1943 Unknown [id number] 2.16.840.1.404036.3.579.2 .356 1943 Unknown [id number] 2.16.840.1.449946.3.579.2 .356 1943 Unknown [id number] 2.16.840.1.240576.3.579.2 .356 1943 Unknown [id number] 2.16.840.1.710765.3.579.2 .356 1943 Unknown [id number] 2.16.840.1.407173.3.579.2 .356 1943 Unknown [id number] 2.16.840.1.331362.3.579.2 .727 1943 Unknown [id number] 2.16.840.1.940901.3.579.2 .727 1943 Unknown [id number] 2.16.840.1.121003.3.579.2 .727 1943 Unknown [id number] 2.16.840.1.947147.3.579.2 .1286 1943 Unknown [id number] 2.16.840.1.084933.3.579.2 .1244 1943 Unknown [id number] 2.16.840.1.480553.3.579.2 .1259 Unknown [id number] 2.16.840.1.951368.3.579.2 .531 Unknown [id number] 2.16.840.1.153919.3.579.2 .531 Unknown [id number] 2.16.840.1.206250.3.579.2 .531 Unknown [id number] 2.16.840.1.051419.3.579.2 .531 Unknown [id number] 2.16.840.1.037715.3.579.2 .531 Unknown [id number] 2.16.840.1.169753.3.579.2 .531 Unknown [id number] 2.16.840.1.350904.3.579.2 .531 Social History Date Type Detail Facility Start: 03-19-2020 End: 02-16-2023 No alcohol use No alcohol use [facility] Comment on above: Occasionally coffee decaf-1 cup; Quit smokiing 50-60 years-smoked a pipe; 1 CUP OF TEA DAILY; Start: 05-05-2021 End: 02-03-2023 Tobacco smoking status WYIS Ex-smoker (finding) [facility] Start: 1945 Sex Assigned At Male [facility] Start: 03-19-2020 End: 02-16-2023 Sex Assigned At Male [facility] End: 02-07-1969 History of tobacco use Current smoker [facility] Work Phone: End: 02-07-1969 History of tobacco use Pipe Smoker [facility] Work Phone: Start: 08-03-2022 End: 02-03-2023 Tobacco use and exposure Smokeless tobacco non-user [facility] Work Phone: Start: 02-16-2023 Alcohol intake Lifetime non-d shilpa (finding) [facility] Work Phone: Start: 1945 Sex Assigned At Not on file U [facility] Work Phone: Start: 02-06-2023 End: 02-16-2023 Exposure to SARS-CoV-2 (event) Not sure [facility] Start: 08-03-2022 Tobacco smoking stat us WYIS Never smoked tobacco [facility] Start: 09-29-2022 End: 04-19-2023 Alcohol intake Current non-drinker of alcohol (finding) [facility] Frequency of Alcohol Consumption Never [facility] Medical Equipment Procedure Code Equipment Code Equipment Origin al Text Equipment Identifier Dates 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 Orthopaedic bone screw, non-bioabsorbable, sterile ()[id number] FDA Start: 05-22-2021 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 Acetabular shell ()[id number] FDA Start: 05-22-2021 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 Non-constrained polyethylene acetabular liner ()[id number] FDA Start: 05-22-2021 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 Acetabulum prosthesis hole plug ()[id number] FDA Start: 05-22-2021 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 Metallic femoral head prosthesis ()[id number] FDA Start: 05-22-2021 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 Coated hip femur prosthesis, modular ()[id number] FDA Start: 05-22-2021 [id number] FDA Start: 07-23-2020 Drug-eluting cor onary artery stent, fiq-tnsxwtukruagm-awdj shira-coated ()[id number] FDA Start: 07-23-2020 Drug-eluting cor onary artery stent, djr-pwhcklrckqyvt-evkr shira-coated ()[id number] FDA Start: 07-23-2020 Drug-eluting cor onary artery stent, low-gqapjsbbjxquz-kiyp shira-coated ()[id number] FDA Start: 07-30-2020 [id number] FDA Start: 07-23-2020 [id number] FDA Start: 07-23-2020 [id number] FDA Start: 07-23-2020 [id number] FDA Start: 07-23-2020 [id number] FDA Start: 07-23-2020 [id number] FDA Start: 07-23-2020 [id number] FDA Start: 07-23-2020 [id number] FDA Start: 07-23-2020 Goals Date Patient Goal Desired Activity /State Functional Status Date Assessment Result Facility 05-25-2022 Functional status Patient is Pro gressing Toward Baseline [facility] Work Phone: 04-03-2022 Functional status Patient Not at Baseline [facility] Work Phone: 02-19-2022 Functional Status N/A [facility] 06-11-2021 Functional status Patient is Pro gressing Toward Baseline [facility] Work Phone: 05-27-2021 Functional status Patient is Pro gressing Toward Baseline [facility] Work Phone: Mental Status Date Assessment Result Facility 05-25-2022 Cognitive function Cognitive Sta tus Patient at Baseline [facility] Work Phone: 04-03-2022 Cognitive function Cognitive Sta tus Patient at Baseline [facility] Work Phone: 06-11-2021 Cognitive function Cognitive Sta tus Patient is Progressing Toward Baseline [facility] Work Phone: 05-27-2021 Cognitive function Cognitive Sta tus Patient is Progressing Toward Baseline [facility] Work Phone: Clinical Notes 05-22-2021 to 04-19-2023 Sabra Pratt MD - 04/19/2023 3:15 PM Max Dunbar MD - 02/16/2023 11:00 AM ESTPatient Instructions Note Date & Type Note Facility 04-19-2023 History of Present illness Narrative Images from the original note were not included. [address] [place] [address] [address] [facility] [id number] Patient: Angella Pradhan Date of : 1945 [...] have then replaced but then had an NC. After he had that treated with stents [...] (benign prostatic hyperplasia) High cholesterol Hypercholesteremia Hypertension NC (myocardial infarction) ([facility]) Past Surgical History: Procedure Laterality Date CARDIAC [...] lb) BMI 29.05 kg/m Assessment and Plan: Angella was seen today for follow-up. Diagnoses and [...] doing well using myrbetriq 50 mg Follow-up: Sabra Pratt MD This note was created with the assistance of a speech recognition program. While intending to generate a timely document that accurately reflects the content of the visit, no guarantee can be provided that every grammatical or spelling mistake has been or will be identified or corrected. Thank you for your understanding. documented in this encounter [employer] 02-16-2023 History of Present illness Narrative Subjective [...] fibrillation (CMS/HCC) 2. Coronary artery disease involving [place] coronary artery of [place] heart without angina pectoris 3. Mixed hyperlipidemia 4. Status post insertion of drug eluting coronary artery stent 5. BMI 30.0-30.9,adult documented in this encounter [facility] Work Phone: 02-16-2023 Olimpia Malone LPN - 02/16/2023 11:00 AM EST [...] months Same medications. documented in this encounter [facility] Work Phone: 01-20-2023 Note Orthopedic Surgery Subjective [...] F/U in one year for follow up [facility] 07-29-2022 Note Orthopedic Surgery Subjective Chief [...] F/U in 6 months for clinical reevaluation [facility] 05-29-2022 Discharge summary Note Date/Time May 29, 2022 5:38pm [facility] [address] [place], [place] [id number] Discharge Summary Signed Patient: Angella Pradhan MR#: [id number] : 1945 Acct:[id number] Age/Sex: 76 / M Adm Date: 3 Loc: Room: [address] [place] [address]: Anshu Jennings MD Copies to: [...] % (Auto) 72.8, Lymph % (Auto) 11.0, Canyon % (Auto) 13.1, Eos % (Auto) 2.8, Baso % (Auto) 0.3, Nucleat RBC Rel Count 0.2, Neut # (Auto) 5.6, Lymph # (Auto) 0.8 L, Canyon # (Auto) 1.0 H, Eos # (Auto) [...] Plan Discharge Plan Patient Disposition: Home Health [facility] Activity: No Activity Restriction Diet: Low-Sodium and [...] Patient Ordered By: Anshu Jennings Follow Up: [facility] [Outside] (Call office on Tuesday to schedule follow-up with Cardioloy. ) Delvin Rodriguez MD [Active Staff] - 06/08/22 1:45 pm (Follow-up with General Surgery to discuss cholecystectomy) Ace Abbott MD [Primary Care Provider] - 06/07/22 3:15 pm (You have been scheduled for a follow up appointment for the following date and time, please call to reschedule if needed.) Documented By: Anshu Jennings MD 05/29/22 17 37 Signed By: <Electronically signed by Anshu Jennings MD> 05/29/22 1744 [facility] Work Phone: 1(296) 119-879504-22-2023 Progress note Author Farhan Sanchez [facility] May 29, 2022 5:32pm Note Date/Time May 29, 2022 4:[address] [facility] [address] [place] [address] Cardiology Progress Note Signed with Addenda Patient: Angella Pradhan MR#: [id number] : 1945 Acct:[id number] Age/Sex: 76 / M Adm Date: 3 Loc: Room: [address] [place] [address] Type: ADM IN Attending Dr: Anshu Jennings MD Copies to: ~ ADDENDUM1 From a cardiology standpoint the patient appears clinically stable and safe for discharge to home today with [facility]. Addendum Documented By: [...] % (Auto) 72.8 Lymph % (Auto) 11.0 Canyon % (Auto) 13.1 Eos % (Auto) 2.8 Baso % (Auto) 0.3 Nucleat RBC Rel Count 0.2 Neut # (Auto) 5.6 Lymph # (Auto) 0.8 L [place] # (Auto) 1.0 H Eos # (Auto) [...] (min): 20 Documented By: Farhan Sanchez MD 05/29/22 1639 Signed By: <Electronically signed by Farhan Sanchez MD> 05/29/22 1641 [facility] Work Phone: 1(896) 676-986304-22-2023 Progress note Author Anshu Jennings [facility] May 29, 2022 4:49pm Note Date/Time May 29, 2022 4:[address] [facility] [address] [place] [address] Hospitalist Progress Note Signed Patient: Angella Pradhan MR#: [id number] : 1945 Acct:[id number] Age/Sex: 76 / M Adm Date: 3 Loc: Room: [address] [place] [address] Type: ADM IN Attending Dr: Anshu Jennings [...] 05/25/22 12:30 05/29/22 10:05 Aspirin 81 Mg Tablet.Dr GALINDO 05/25/23 12:29 81 mg DAILY EARELNE Administration Atorvastatin Calcium 40 mg 05/26/22 21:00 [...] 09:00 05/29/22 10:05 Ferrous Sulfate 324 Mg Tablet.Dr GALINDO 05/26/23 08:59 324 mg DAILY EARLENE Administration [...] <Electronically signed by Anshu Jennings MD> 05/29/22 1649 [facility] Work Phone: 1(248) 627-738904-21-2023 Progress note Author Delvin Rodriguez [facility] May 28, 2022 4:14pm Note Date/Time May 28, 2022 4:[address] [facility] [address] [place] [address] General Surgery Progress Note Signed Patient: Angella Pradhan MR#: [id number] : 1945 Acct:[id number] Age/Sex: 76 / M Adm Date: 3 Loc: Room: [address] [place] [address] Type: ADM IN Attending Dr: Anshu Jennings [...] tablet 50 mcg PO QAM #0 tabs 02/24/23 [Rx Confirmed 05/25/22] digoxin 125 mcg (0.125 [...] 500 Mg Tablet) 500 mg PO DAILY [facility] Stop: 05/26/23 08:59 Last Admin: 05/28/22 09:08 Dose: Not Given Aspirin (Aspirin 81 Mg Tablet.) 81 mg PO DAILY [facility] Stop: 05/25/23 12:29 Last Admin: 05/28/22 09:08 Dose: Not Given Atorvastatin Calcium (Atorvastatin 40 Mg Tablet) 40 mg PO QPM [facility] Stop: 05/26/23 20:59 Last Admin: 05/27/22 22:03 Dose: 40 mg Calcium Carbonate (Calcium Carbonate 500 Mg Tab.Chew) 250 mg PO BID [facility] Stop: 05/25/23 20:59 Last Admin: 05/28/22 09:08 Dose: Not Given Cefdinir (Cefdinir 300 Mg Capsule) 300 mg PO DAILY [facility] Docusate Sodium (Docusate 100 Mg Capsule) 100 mg PO BID PRN PRN Reason: Constipation Stop: 05/25/23 11:10 Ferrous Sulfate (Ferrous Sulfate 324 Mg Tablet.) 324 mg PO DAILY [facility] Stop: 05/26/23 08:59 Last Admin: 05/28/22 09:08 Dose: Not Given Finasteride (Finasteride 5 Mg Tablet) 5 mg PO QAM [facility] Stop: 05/26/23 08:59 Last Admin: 05/28/22 09:08 Dose: Not Given Heparin Sodium (Porcine) (Heparin 5,000 Unit/Ml Vial) 5,000 unit SUBCUT Q8HR [facility] Stop: 05/27/23 13:59 Last Admin: 05/28/22 13:05 Dose: 5,000 unit Metronidazole (Flagyl) 500 mg in 100 mls @ 100 mls/hr IV Q8H [facility] Last Admin: 05/28/22 07:48 Dose: Not Given Ceftriaxone Sodium (Rocephin) 2 gm in 50 mls @ 100 mls/hr IV Q24H [facility] Last Admin: 05/28/22 07:30 Dose: 100 mls/hr [...] DAILY EARLENE Stop: 05/25/23 11:29 Last Admin: 05/28/22 09:09 [...] Tablet) 60 mg PO BID EARLENE Stop: 05/29/23 08:59 Tamsulosin HCl (Tamsulosin 0.4 Mg Cap.Er.24h) 0.4 mg PO QHS EARLENE Stop: 05/25/23 21:59 Last Admin: 05/27/22 22:03 Dose: 0.4 mg Vitamin D (Cholecalciferol 25 Mcg (1,000 Units) Tablet) 50 mcg PO QAM EARLENE Stop: 05/26/23 08:59 Last Admin: 05/28/22 09:08 [...] % (Auto) 77.2, Lymph % (Auto) 8.0, Canyon % (Auto) 13.8, Eos % (Auto) 0.5, Baso % (Auto) 0.5, Nucleat RBC Rel Count 0.1, Neut # (Auto) 7.2, Lymph # (Auto) 0.7 L, [place] # (Auto) 1.3 H, Eos # (Auto) [...] % (Auto) 73.8, Lymph % (Auto) 9.4, Canyon % (Auto) 12.3, Eos % (Auto) 4.1, Baso % (Auto) 0.4, Nucleat RBC Rel Count 0.1, Neut # (Auto) 5.0, Lymph # (Auto) 0.6 L, [place] # (Auto) 0.8, Eos # (Auto) 0.3, [...] Acute (4) Chronic anticoagulation: Code(s): Z79.01 - manager terminal (current) use of anticoagulants Status: Acute (5) Coronary artery disease: Code(s): I25.10 - Atherosclerotic heart disease of [place] coronary artery without angina pectoris Status: Chronic [...] discuss cholecystectomy. Documented By: Delvin Rodriguez MD 05/28/221610 Signed By: <Electronically signed by MD Delvin Rodriguez> 05/28/22 2411 [facility] Work Phone: 1(614) 453-764404-21-2023 Progress note Author Anshu Jennings [facility] May 28, 2022 3:52pm Note Date/Time May 28, 2022 3:[address] [facility] [address] [place] [address] Hospitalist Progress Note Signed Patient: Angella Pradhan MR#: [id number] : 1945 Acct:[id number] Age/Sex: 76 / M Adm Date: 3 Loc: Room: [address] [place] [address] Type: ADM IN Attending Dr: Anshu Jennings [...] 05/28/22 12:00 05/28/22 12:00 05/28/22 12:00 05/28/22 12:05/28/22 12:00 Narrative: Const General: cooperative, comfortable, in [...] Tablet PO 05/26/23 08:59 Not Given DAILY [facility] Aspirin 81 mg 05/25/22 12:30 05/28/22 09:08 Aspirin 81 Mg Tablet. PO 05/25/23 12:29 Not Given DAILY [facility] Atorvastatin Calcium 40 mg 05/26/22 21:00 05/27/22 22:03 Atorvastatin 40 Mg Tablet PO 05/26/23 20:59 40 mg QPM EARLENE Administration Calcium Carbonate 250 mg 05/25/22 21:00 05/28/22 09:08 Calcium Carbonate 500 Mg Tab.Chew PO 05/25/23 20:59 Not Given BID [facility] Cefdinir 300 mg 05/26/22 09:00 Cefdinir 300 Mg Capsule PO DAILY [facility] Docusate Sodium 100 mg 05/25/22 11:11 Docusate 100 Mg Capsule PO 05/25/23 11:10 BID PRN Constipation Ferrous Sulfate 324 mg 05/26/22 09:00 05/28/22 09:08 Ferrous Sulfate 324 Mg Tablet. PO 05/26/23 08:59 Not Given DAILY [facility] Finasteride 5 mg 05/26/22 09:00 05/28/22 09:08 Finasteride 5 Mg Tablet PO 05/26/23 08:59 Not Given QAM [facility] Heparin Sodium (Porcine) 5,000 unit 05/27/22 14:00 05/28/22 13:05 Heparin 5,000 Unit/Ml Vial SUBCUT 05/27/23 13:59 5,000 unit Q8HR EARLENE Administration Metronidazole 500 mg in 100 mls @ 100 mls/hr 05/26/22 07:45 05/28/22 07:48 Flagyl IV Not Given Q8H EARLENE Ceftriaxone Sodium 2 gm in 50 mls [...] Vial IV-PUSH 05/25/23 11:29 Not Given DAILY ERALENE Prochlorperazine Edisylate 5 mg 05/25/22 11:11 05/27/22 [...] Units) Tablet PO 05/26/23 08:59 Not Given QAM EARLENE A&P - Hospitalist Assessment/Plan (1) Epigastric pain: [...] <Electronically signed by Anshu Jennings MD> 05/28/22 155 [facility] Work Phone: 1(768) 714-210004-21-2023 Progress note Author Taurustammy Allanollie [facility] May 28, 2022 3:09pm Note Date/Time May 28, 2022 3:[address] [facility] [address] [place] [address] Cardiology Progress Note Signed Patient: Angella Pradhan MR#: [id number] : 1945 Acct:[id number] Age/Sex: 76 / M Adm Date: 3 Loc: Room: [address] [place] [address] Type: ADM IN Attending Dr: Anshu Jennings [...] % (Auto) 77.2 Lymph % (Auto) 8.0 Canyon % (Auto) 13.8 Eos % (Auto) 0.5 Baso % (Auto) 0.5 Nucleat RBC Rel Count 0.1 Neut # (Auto) 7.2 Lymph # (Auto) 0.7 L [place] # (Auto) 1.3 H Eos # (Auto) [...] QTc Documented By: Pino Dunbar MD 05/28/22 1508 Signed By: <Electronically signed by MD Pino Dunbar> 05/28/22 1502 [facility] Work Phone: 1(739) 164-263104-21-2023 Hospital Discharge instructionsAmbulatory Orders* Initiate Home Health [...] fever, chills, worsening abdominal pain, return to [facility] Work Phone: 1([phone]) 478-782604-21-2023 Consult note Author Jigar Church [facility] May 28, 2022 10:14am Note Date/Time May 27, 2022 3:[address] [facility] [address] [place] [address] Gastroenterology Consult Note Signed Patient: Angella Pradhan MR#: [id number] : 1945 Acct:[id number] Age/Sex: 76 / M Adm Date: 3 Loc: Room: [address] [place] [address] Type: ADM IN Attending Dr: Anshu Jennings [...] Social History Comments: assisted living at [facility] Medications and Allergies Allergies mirtazapine Allergy [...] % (Auto) 73.8 Lymph % (Auto) 9.4 Canyon % (Auto) 12.3 Eos % (Auto) 4.1 Baso % (Auto) 0.4 Nucleat RBC Rel Count 0.1 Neut # (Auto) 5.0 Lymph # (Auto) 0.6 L [place] # (Auto) 0.8 Eos # (Auto) 0.3 [...] signed by Jigar Church MD> 05/28/22 1014 [facility] Work Phone: 1([phone]) 422-289904-20-2023 Progress note Author Delvin Rodriguez [facility] May 27, 2022 8:52pm Note Date/Time May 27, 2022 7:[address] [facility] [address] [place] [address] General Surgery Progress Note Signed Patient: Angella Pradhan MR#: [id number] : 1945 Acct:[id number] Age/Sex: 76 / M Adm Date: 3 Loc: Room: [address] [place] [address] Type: ADM IN Attending Dr: Anshu Jennings [...] 500 Mg Tablet) 500 mg PO DAILY [facility] Stop: 05/26/23 08:59 Last Admin: 05/26/22 09:23 Dose: 500 mg Aspirin (Aspirin 81 Mg Tablet.) 81 mg PO DAILY [facility] Stop: 05/25/23 12:29 Last Admin: 05/26/22 08:43 Dose: 81 mg Atorvastatin Calcium (Atorvastatin 40 Mg Tablet) 40 mg PO QPM [facility] Stop: 05/26/23 20:59 Last Admin: 05/26/22 21:35 Dose: 40 mg Calcium Carbonate (Calcium Carbonate 500 Mg Tab.Chew) 250 mg PO BID [facility] Stop: 05/25/23 20:59 Last Admin: 05/26/22 21:36 Dose: 250 mg Cefdinir (Cefdinir 300 Mg Capsule) 300 mg PO DAILY [facility] Digoxin (Digoxin 125 Mcg Tablet) 125 mcg PO QAM [facility] Stop: 05/25/23 12:29 Last Admin: 05/26/22 08:42 Dose: 125 mcg Docusate Sodium (Docusate 100 Mg Capsule) 100 mg PO BID PRN PRN Reason: Constipation Stop: 05/25/23 11:10 Ferrous Sulfate (Ferrous Sulfate 324 Mg Tablet.) 324 mg PO DAILY [facility] Stop: 05/26/23 08:59 Last Admin: 05/26/22 08:44 Dose: 324 mg Finasteride (Finasteride 5 Mg Tablet) 5 mg PO QAM [facility] Stop: 05/26/23 08:59 Last Admin: 05/26/22 08:46 Dose: 5 mg Metronidazole (Flagyl) 500 mg in 100 mls @ 100 mls/hr IV Q8H [facility] Last Infusion: 05/27/22 01:29 Dose: Infused Ceftriaxone Sodium (Rocephin) 2 gm in 50 mls @ 100 mls/hr IV Q24H [facility] Last Admin: 05/26/22 09:25 Dose: 100 mls/hr Midodrine (Midodrine 5 Mg Tablet) 5 mg PO TID.7A.12P.5P PRN PRN Reason: SBP<100 Stop: 05/26/23 11:59 Morphine Sulfate (Morphine Sulfate 2 Mg/Ml Vial) 2 mg IV-PUSH Q4H PRN PRN Reason: Pain Scale 8 - 10 Pantoprazole Sodium (Pantoprazole 40 Mg Vial) 40 mg IV-PUSH DAILY [facility] Stop: 05/25/23 11:29 Last Admin: 05/26/22 09:26 [...] 120 Mg Tablet) 120 mg PO BID [facility] Stop: 05/25/23 20:59 Last Admin: 05/26/22 21:36 Dose: 120 mg Tamsulosin HCl (Tamsulosin 0.4 Mg Cap.Er.24h) 0.4 mg PO QHS [facility] Stop: 05/25/23 21:59 Last Admin: 05/26/22 21:36 Dose: 0.4 mg Vitamin D (Cholecalciferol 25 Mcg (1,000 Units) Tablet) 50 mcg PO QAM [facility] Stop: 04/18/24 08:59 Last Admin: 05/26/22 08:44 Dose: 50 [...] % (Auto) 76.3, Lymph % (Auto) 7.0, Canyon % (Auto) 13.4, Eos % (Auto) 2.8, Baso % (Auto) 0.5, Nucleat RBC Rel Count 0.0, Neut # (Auto) 8.2 H, Lymph # (Auto) 0.8 L, Canyon # (Auto) 1.4 H, Eos # (Auto) [...] 0.7, AST 85 H, ALT 49, Alkaline [id number], Total Protein 6.3 L, Albumin 3.4 L, Globulin 2.9, Albumin/Globulin Ratio 1.2, Lipase 24.0 05/25/22 06:44: PT 17.0 H, INR 1.5, APTT 31.8 05/25/22 06:44: Corrected WBC 9.6, Uncorrected WBC Count 9.6, RBC 4.74, Hgb 13.9, Hct 42.2, MCV 89.0, MCH 29.4, MCHC 33.0, RDW 14.2, Plt Count 189, MPV 8.0,Neut % (Auto) 73.1, Lymph % (Auto) 15.0, Canyon % (Auto) 9.3, Eos % (Auto) 1.8, Baso % (Auto) 0.8, Nucleat RBC Rel Count 0.0, Neut # (Auto) 7.0, Lymph # (Auto) 1.4, Canyon # (Auto) 0.9 H, Eos # (Auto) [...] Acute (4) Chronic anticoagulation: Code(s): Z79.01 - longterm (current) use of anticoagulants Status: Acute (5) Coronary artery disease: Code(s): I25.10 - Atherosclerotic heart disease of [place] coronary artery without angina pectoris Status: Chronic [...] <Electronically signed by MD Delvin Rodriguez> 05/27/222051 [facility] Work Phone: [phone] 514-767404-20-2023 Consult note Author Pino Dunbar [facility] May 27, 2022 11:57am Note Date/Time May 27, 2022 11: 47am [facility] [address] [place] [address] Cardiology Consult Note Signed Patient: Angella Pradhan MR#: [id number] : 1945 Acct:[id number] Age/Sex: 76 / M Adm Date: 3 Loc: 3T Room: [address] [place] [address] Type: ADM IN Attending Dr: Anshu Jennings [...] Social History Comments: assisted living at [facility] Medications and Allergies Allergies mirtazapine Allergy [...] Lymph # (Auto) 0.6 L (1.00-4.8) x10E3/uL Canyon # (Auto) 0.8 (0.0-0.8) x10E3/uL Eos # [...] ml @ 100 mls/hr IV Q8H [facility] Rx#:[id number] Oral 300 / 1280 150 / 150 [...] <Electronically signed by MD Pino Dunbar> 05/27/22 1153 [facility] Work Phone: 1([phone]) 649-132204-20-2023 Progress note Author Anshu Jennings [facility] May 27, 2022 11:20am Note Date/Time May 27, 2022 11: 10am [facility] [address] [place] [address] Hospitalist Progress Note Signed Patient: Angella Pradhan MR#: [id number] : 1945 Acct:[id number] Age/Sex: 76 / M Adm Date: 3 Loc: Room: [address] [place] [address] Type: ADM IN Attending Dr: Anshu Jennings [...] Dose Route Start Last Admin Trade Name Cecily PRN Reason Stop Dose Admin Acetaminophen 650 mg 05/26/22 17:26 Acetaminophen 325 Mg Tablet PO 05/25/23 11:10 Q8HR PRN Pain Scale 1 - 3 or fever Ascorbic Acid 500 mg 05/26/22 09:00 05/27/22 09:29 Ascorbic Acid 500 Mg Tablet PO 05/26/23 08:59 500 mg DAILY [facility] Administration Aspirin 81 mg 05/25/22 12:30 05/27/22 09:29 Aspirin 81 Mg Tablet. PO 05/25/23 12:29 [...] <Electronically signed by Anshu Jennings MD> 05/27/22 1414 [facility] Work Phone: [phone] 198-842804-19-2023 Consult note Author Delvin Rodriguez [facility] May 26, 2022 3:51pm Note Date/Time May 26, 2022 8:[address] [facility] [address] [place] [address] General Surgery Consult Note Signed Patient: Angella Pradhan MR#: [id number] : 1945 Acct:[id number] Age/Sex: 76 / M Adm Date: 3 Loc: 3T Room: [address] [place] [address] Type: ADM IN Attending Dr: Anshu Jennings [...] Social History Comments: assisted living at [facility] Allergies & Medications Medications and [...] 5 Mg Tablet) 5 mg PO BID [facility] Stop: 05/25/23 20:59 Ascorbic Acid (Ascorbic Acid 500 Mg Tablet) 500 mg PO DAILY [facility] Stop: 05/26/23 08:59 Aspirin (Aspirin 81 Mg Tablet.) 81 mg PO DAILY [facility] Stop: 05/25/23 12:29 Last Admin: 05/26/22 08:43 Dose: 81 mg Atorvastatin Calcium (Atorvastatin 40 Mg Tablet) 40 mg PO QPM [facility] Stop: 05/26/23 20:59 Calcium Carbonate (Calcium Carbonate 500 Mg Tab.Chew) 250 mg PO BID [facility] Stop: 05/25/23 20:59 Last Admin: 05/26/22 08:42 Dose: 250 mg Cefdinir (Cefdinir 300 Mg Capsule) 300 mg PO DAILY [facility] Digoxin (Digoxin 125 Mcg Tablet) 125 mcg PO QAM [facility] Stop: 05/25/23 12:29 Last Admin: 05/26/22 08:42 Dose: 125 mcg Docusate Sodium (Docusate 100 Mg Capsule) 100 mg PO BID PRN PRN Reason: Constipation Stop: 05/25/23 11:10 Ferrous Sulfate (Ferrous Sulfate 324 Mg Tablet.Dr) 324 mg PO DAILY [facility] Stop: 05/26/23 08:59 Last Admin: 05/26/22 08:44 Dose: 324 mg Finasteride (Finasteride 5 Mg Tablet) 5 mg PO QAM [facility] Stop: 05/26/23 08:59 Last Admin: 05/26/22 08:46 Dose: 5 mg Metronidazole (Flagyl) 500 mg in 100 mls @ 100 mls/hr IV Q8H [facility] Ceftriaxone Sodium (Rocephin) 2 gm in 50 mls @ 100 mls/hr IV Q24H [facility] Midodrine (Midodrine 5 Mg Tablet) 5 mg PO TID.7A.12P.5P PRN PRN Reason: SBP<100 Stop: 05/26/23 11:59 Morphine Sulfate (Morphine Sulfate 2 Mg/Ml Vial) 2 mg IV-PUSH Q4H PRN PRN Reason: Pain Scale 8 - 10 Pantoprazole Sodium (Pantoprazole 40 Mg Vial) 40 mg IV-PUSH DAILY [facility] Stop: 05/25/23 11:29 Last Admin: 05/25/22 13:48 [...] Reason: Dilution Stop: 05/25/23 11:10 Last Admin: 05/25/22 13:48 Dose: 10 ml Sotalol HCl (Sotalol 120 Mg Tablet) 120 mg PO BID [facility] Stop: 05/25/23 20:59 Last Admin: 05/26/22 08:41 Dose: 120 mg Tamsulosin HCl (Tamsulosin 0.4 Mg Cap.Er.24h) 0.4 mg PO QHS [facility] Stop: 05/25/23 21:59 Last Admin: 05/25/22 21:12 Dose: 0.4 mg Vitamin D (Cholecalciferol 25 Mcg (1,000 Units) Tablet) 50 mcg PO QAM [facility] Stop: 05/26/23 08:59 Last Admin: 05/26/22 08:44 [...] % (Auto) 76.3, Lymph % (Auto) 7.0, Canyon % (Auto) 13.4, Eos % (Auto) 2.8, Baso % (Auto) 0.5, Nucleat RBC Rel Count 0.0, Neut # (Auto) 8.2 H, Lymph # (Auto) 0.8 L, Canyon # (Auto) 1.4 H, Eos # (Auto) [...] 0.7, AST 85 H, ALT 49, Alkaline [id number], Total Protein 6.3 L, Albumin 3.4 L, Globulin 2.9, Albumin/Globulin Ratio 1.2, Lipase 24.0 05/25/22 06:44: PT 17.0 H, INR 1.5, APTT 31.8 05/25/22 06:44: Corrected WBC 9.6, Uncorrected WBC Count 9.6, RBC 4.74, Hgb 13.9, Hct 42.2, MCV 89.0, MCH 29.4, MCHC 33.0, RDW 14.2, Plt Count 189, MPV 8.0, Neut % (Auto) 73.1, Lymph % (Auto) 15.0, Canyon % (Auto) 9.3, Eos % (Auto) 1.8, Baso % (Auto) 0.8, Nucleat RBC Rel Count 0.0, Neut # (Auto) 7.0, Lymph # (Auto) 1.4, Canyon # (Auto) 0.9 H, Eos # (Auto) [...] Acute (5) Chronic anticoagulation: Code(s): Z79.01 - longterm (current) use of anticoagulants Status: Acute (6) Coronary artery disease: Code(s): I25.10 - Atherosclerotic heart disease of [place] coronary artery without angina pectoris Status: Chronic [...] discharge. Documented By: Delvin Rodriguez MD 05/26/22 0390 Signed By: <Electronically signed by MD Delvin Rodriguez> 05/26/22 5647 [facility] Work Phone: [phone]) [phone] Progress note Author Anshu Jennings [facility] May 26, 2022 2:42pm Note Date/Time May 26, 2022 2:[address] [facility] [address] [place] [address] Hospitalist Progress Note Signed Patient: Angella Pradhan MR#: [id number] : 1945 Acct:[id number] Age/Sex: 76 / M Adm Date: 3 Loc: 3T Room: [address] [place] [address] Type: ADM IN Attending Dr: Anshu Jennings [...] Dose Route Start Last Admin Trade Name Cecily PRN Reason Stop Dose Admin Acetaminophen 650 mg 05/25/22 11:11 Acetaminophen 325 Mg Tablet PO 05/25/23 11:10 Q6HR PRN Pain Scale 1 - 3 or fever Ascorbic Acid 500 mg 05/26/22 09:00 05/26/22 09:23 Ascorbic Acid 500 Mg Tablet PO 05/26/23 08:59 500 mg DAILY [facility] Administration Aspirin 81 mg 05/25/22 12:30 05/26/22 08:43 Aspirin 81 Mg Tablet. PO 05/25/23 12:29 [...] <Electronically signed by Anshu Jennings MD> 05/26/22 1442 [facility] Work Phone: [phone] History and physical note Author Anshu Jennings [facility] May 25, 2022 11:46am Note Date/Time May 25, 2022 11: 45am [facility] [address] [place] [address] Hospitalist H&P Signed Patient: Angella Pradhan MR#: [id number] : 1945 Acct:[id number] Age/Sex: 76 / M Adm Date: 3 Loc: Room: [address] [place] [address] Type: ADM INOo Attending Dr: Anshu Jennings [...] Social History Comments: assisted living at [facility] Medications and Allergies Allergies mirtazapine Allergy (Severe, [...] % (Auto) 15.0 % (.) 05/25/22 06:44 Canyon % (Auto) 9.3 % (.) 05/25/22 06:44 Eos % (Auto) 1.8 % (.) 05/25/22 06:44 Baso % (Auto) 0.8 % (.) 05/25/22 06:44 Nucleat RBC Rel Count 0.0 /100 WBC (0-0.5) 05/25/22 06:44 Neut # (Auto) 7.0 x10E3/uL (1.8-7.7) 05/25/22 06:44 Lymph # (Auto) 1.4 x10E3/uL (1.00-4.8) 05/25/22 06:44 Canyon # (Auto) 0.9 x10E3/uL (0.0-0.8) H 05/25/22 [...] <Electronically signed by Anshu Jennings MD> 05/25/22 114 [facility] Work Phone: [phone] 155-222001-13-2023 Hospital Discharge instructions Patient Education 02/19/2022 10:01:29 [...] urethra. Follow these instructions at home: Take vhsi-ixh-dvltwuo and prescription medicines only as told by [...] 01/24/2006 Document Revised: 12/19/2018 Document Reviewed: 02/28/2017 Huan Xiong Patient Education 2020 [employer]. Follow Up Care 01/26/2022 14:46:04 With:BOSTON DUMONT, Antoine Morton, URL Address: [address] [id number]- When: Unknown [facility] Jocelyne 05-05-2022 Progress note Author Horace Palafox [facility] June 11, 2021 7:48am Note Date/Time June 11, 2021 7:48am [facility] [address] [id number] Physiatry(Rehab) Progress Note Signed Patient: Angella Pradhan MR#: [id number] : 1945 Acct:[id number] Age/Sex: 75 / M Adm Date: 2 Loc: Room: 5T3116-7 Type : ADM IN Attending Dr: Horace Palafox MD Copies to: ~ Date of Service: 06/10/2021 Subjective Subjective Narrative: Mr. Pradhan is a 75 year old male with a past medical history of arthritis, BPH,CAD, NC s/p coronary artery stenting, who is admitted to rehabilitation for functional decline status post elective left total hip arthroplasty. He reports a longstanding history of bilateral hip pain as a result of mqye-xw-vmfr . The surgery was planned to be performed sometime last year however he sustained a myocardial infarction in July 2020, which required stenting and resulted in prolonged recovery. He has been residing at [facility] since his heart attack. He [...] follow. He plans to return back to [facility] at discharge. At baseline he [...] mg 05/27/21 15:47 Bisacodyl 10 Mg Supp.Rect CO 05/27/22 15:46 DAILY PRN Constipation Calcium Carbonate [...] 15:47 Docusate Enema 283 Mg/5 Ml Enema CO 05/27/22 15:46 DAILY PRN Constipation Ferrous Sulfate [...] Code(s): I25.10 - Atherosclerotic heart disease of [place] coronary artery without angina pectoris Status: Acute [...] assist, propels self in wheelchair for community [facility] Hospitalist to assist with management of comorbid medical conditions Pain control:Continue oxycodone for now Bowel and bladder: Maintain Ghotra. Skin: Continue wound care for pressure ulcer as ordered. DVT prophylaxis:Covered with Eliquis. Functional status:Walking 35 feet with therapy, contact-guard assist and wheelchair follow. Min to contact-guard for self-care. Discharge planning:Plan for DC tomorrow Documented By: Horace Palafox MD 06/10/21 0938 Signed By: <Electronically signed by Horace Palafox MD> 06/11/21 0748 [facility] Work Phone: [phone]) 800-480005-03-2022 Progress note Author Horace Palafox [facility] June 09, 2021 3:26pm Note Date/Time June 09, 2021 11:31a m [facility] [address] [place] [address] Physiatry(Rehab) Progress Note Signed Patient: Angella Pradhan MR#: [id number] : 1945 Acct:[id number] Age/Sex: 75 / M Adm Date: 2 Loc: Room: [address] [place] [address] Type : ADM IN Attending Dr: Horace Palafox MD Copies to: ~ <Cesilia Rosales APRN - Last Filed: 06/09/21 11:49> Date of Service: 06/09/2021 Subjective <Cesilia Rosales APRN - Last Filed: 06/09/21 11:49> Subjective Narrative: Mr. Pradhan is a 75 year old male with a past medical history of arthritis, BPH,CAD, NC s/p coronary artery stenting, who is admitted to rehabilitation for functional decline status post elective left total hip arthroplasty. He reports a longstanding history of bilateral hip pain as a result of wbsw-hp-tdff . The surgery was planned to be performed sometime last year however he sustained a myocardial infarction in July 2020, which required stenting and resulted in prolonged recovery. He has been residing at [facility] since his heart attack. He [...] follow. He plans to return back to [facility] at discharge. At baseline he [...] this time. We will arrange discharge to [facility] on . Per patient, daughter or son can transport him back to the [facility] via their wheelchair van. He is requesting [...] mg 05/27/21 15:47 Bisacodyl 10 Mg Supp.Rect CO 05/27/22 15:46 DAILY PRN Constipation Calcium Carbonate [...] 15:47 Docusate Enema 283 Mg/5 Ml Enema CO 05/27/22 15:46 DAILY PRN Constipation Ferrous Sulfate 324 mg 06/05/21 16:15 06/09/21 07:57 Ferrous Sulfate 324 Mg Tablet. PO 06/05/22 16:14 324 mg DAILY [facility] [...] 220 mg DAILY [facility] Administration Assessment/Plan <Cesilia Rosales, CLUB WAITER/WAITRESS - Last Filed: 06/09/21 11:49> Assessment/Plan (1) [...] Code(s): I25.10 - Atherosclerotic heart disease of [place] coronary artery without angina pectoris Status: Acute [...] Tentatively will discharge the patient back to [facility] on . Family will transport. * Ambulates [...] greater than 15 minutes for services, including oldn-ux-mlpi encounter with the patient, discussion of the case, plan of care, and exam; and lexhyfs-bn-wlfj activities, such as reviewing pertinent splunk consultant documentation, recent therapy notes, laboratory and radiology studies, and discussion of case with care team including physician, nursing, sample case porter, and therapists. More than 50 % of [...] Allied health note review, nursing note review, splunk consultant note review, discussion with nursing and case management, and more than 50% of my time was spent on counseling and coordination of care, time spent 17 minutes Patient was personally seen by me, Dr. Palafox, on the day of encounter, reviewed the history and the relevant portions of the chart, including current orders, allied health and splunk consultant notes, labs/imaging and performed fletcher elements of exam and I formulated the plan of care and facilitated the medical decision making and confirmed the nurse practitioner note, as above Reviewed General surgery consult No role for debridement at this point Continue close observation Plan for discharge to halfway facility, where he was residing prior, endof the week Ghotra to remain in place until outpatient f/u Documented By: Cesilia Rosales APRN 06/09/21 1 129 Signed By: <Electronically signed by CASIMIRO Rosales> 06/09/21 1149 <Electronically signed by Horace Palafox MD> 06/09/21 8037 [facility] Work Phone: 1(461) 655-549405-02-2022 Consult note Author Bennett Matos [facility] June 08, 2021 5:42pm Note Date/Time June 08, 2021 5:42pm [facility] [address] [place] [address] General Surgery Consult Note Signed Patient: Angella Pradhan MR#: [id number] : 1945 Acct:[id number] Age/Sex: 75 / M Adm Date: 2 Loc: Room: [address] [place] [address] Type : ADM IN Attending Dr: Horace Palafox MD Copies to: MD Horace Gonsalves MD Paul C Laffay,DO~ History of Present Illness Date of consult: 06/08/2021 Requesting/Attending Provider: Horace Palafox MD History of present illness: Patient had a hip replacement as well as urinary retention postoperatively, he was transferred to rehab and plan is for him to go to [facility] after that. He will be there until [...] 5 Mg Tablet) 5 mg PO BID [facility] Stop: 05/27/22 20:59 Last Admin: 06/08/21 09:57 Dose: 5 mg Documented by: Ascorbic Acid (Ascorbic Acid 500 Mg Tablet) 500 mg PO BID.WITH.MEALS [facility] Stop: 05/27/22 16:59 Last Admin: 06/08/21 17:32 Dose: 500 mg Documented by: Bisacodyl (Bisacodyl 10 Mg Supp.Rect) 10 mg CO DAILY PRN PRN Reason: Constipation Stop: 05/27/22 15:46 Calcium Carbonate (Calcium Carbonate 500 Mg Tablet) 500 mg PO BID.WITH.MEALS [facility] Stop: 05/27/22 16:59 Last Admin: 06/08/21 17:32 Dose: 500 mg Documented by: Digoxin (Digoxin 125 Mcg Tablet) 125 mcg PO QAM [facility] Stop: 05/28/22 08:59 Last Admin: 06/08/21 09:56 Dose: 125 mcg Documented by: Docusate Sodium (Docusate 100 Mg Capsule) 100 mg PO BID PRN PRN Reason: Constipation Stop: 05/27/22 15:46 Last Admin: 06/05/21 08:31 Dose: 100 mg Documented by: Docusate Sodium (Docusate Enema 283 Mg/5 Ml Enema) 283 mg CO DAILY PRN PRN Reason: Constipation Stop: 05/27/22 15:46 Ferrous Sulfate (Ferrous Sulfate 324 Mg Tablet.Dr) 324 mg PO DAILY [facility] Stop: 06/05/22 16:14 Last Admin: 06/08/21 09:57 Dose: 324 mg Documented by: Finasteride (Finasteride 5 Mg Tablet) 5 mg PO QAM [facility] Stop: 05/28/22 08:59 Last Admin: 06/08/21 09:59 Dose: 5 mg Documented by: Gabapentin (Gabapentin 300 Mg Capsule) 300 mg PO BID [facility] Stop: 05/27/22 20:59 Last Admin: 06/08/21 09:58 [...] 5 Mg Tablet) 10 mg PO TID.7A.12P.5P [facility] Stop: 05/27/22 16:59 Last Admin: 06/08/21 17:32 Dose: 10 mg Documented by: Nystatin (Nystatin 100,000 Unit/Gram Powder 15 Gm Bottle) 1 applic TOPICAL DAILY [facility] Stop: 05/28/22 08:59 Last Admin: 06/08/21 10:36 Dose: 1 applic Documented by: Omeprazole (Omeprazole 20 Mg Capsule.Dr) 40 mg PO QAM [facility] Stop: 05/28/22 08:59 Last Admin: 06/08/21 09:57 [...] 120 Mg Tablet) 60 mg PO BID [facility] Stop: 05/27/22 20:59 Last Admin: 06/08/21 09:57 Dose: 60 mg Documented by: Tamsulosin HCl (Tamsulosin 0.4 Mg Cap.Er.24h) 0.4 mg PO QHS [facility] Stop: 05/28/22 21:59 Last Admin: 06/07/21 20:06 Dose: 0.4 mg Documented by: Vitamin D (Cholecalciferol 25 Mcg (1,000 Units) Tablet) 50 mcg PO QAM [facility] Stop: 05/28/22 08:59 Last Admin: 06/08/21 09:56 Dose: 50 mcg Documented by: Zinc Sulfate (Zinc Sulfate 220 Mg Capsule) 220 mg PO DAILY [facility] Stop: 06/05/22 16:14 Last Admin: 06/08/21 09:57 [...] <Electronically signed by DO Bennett Matos> 06/08/21 1742 [facility] Work Phone: [phone]) 704-878705-02-2022 Progress note Author Horace Palafox [facility] June 08, 2021 1:41pm Note Date/Time June 08, 2021 12:21p m [facility] [address] [place] [address] Physiatry(Rehab) Progress Note Signed Patient: Angella Pradhan MR#: [id number] : 1945 Acct:[id number] Age/Sex: 75 / M Adm Date: 2 Loc: Room: 0P5462-1 Type : ADM IN Attending Dr: Horace Palafox MD Copies to: ~ <Cesilia Rosales APRN - Last Filed: 06/08/21 12:42> Date of Service: 06/08/2021 Subjective <Cesilia Rosales APRN - Last Filed: 06/08/21 12:42> Subjective Narrative: Mr. Pradhan is a 75 year old male with a past medical history of arthritis, BPH,CAD, [place] s/p coronary artery stenting, who is admitted to rehabilitation for functional decline status post elective left total hip arthroplasty. He reports a longstanding history of bilateral hip pain as a result of nvua-qo-wazz . The surgery was planned to be performed sometime last year however he sustained a myocardial infarction in July 2020, which required stenting and resulted in prolonged recovery. He has been residing at [facility] since his heart attack. He [...] follow. He plans to return back to [facility] at discharge. At baseline he isambulatory with a walker, also uses electric scooter for community distances. Interval history: He is doing well, no acute events over the weekend. States, pressure ulcer is actually less painful today. Wound care will be in toreevaluate the appearance of the wound. Discussed discharge planning. Tentatively, he will go back to [facility] at the end of the week. This [...] Exam <Cesilia Rosales APRN - Last Filed: 06/08/21 12:42> Physical Exam [...] Insight: fair Judgment: fair Objective <Cesilia Rosales, CLUB WAITER/WAITRESS - Last Filed: 06/08/21 12:42> Labs CBC [...] mg 05/27/21 15:47 Bisacodyl 10 Mg Supp.Rect CO 05/27/22 15:46 DAILY PRN Constipation Calcium Carbonate [...] 15:47 Docusate Enema 283 Mg/5 Ml Enema CO 05/27/22 15:46 DAILY PRN Constipation Ferrous Sulfate [...] Tablet PO 05/28/22 08:59 50 mcg QAM [facility] Administration Zinc Sulfate 220 mg 06/05/21 16:15 06/08/21 09:57 Zinc Sulfate 220 Mg Capsule PO 06/05/22 16:14 220 mg DAILY [facility] Administration Assessment/Plan <Cesilia Rosales, CLUB WAITER/WAITRESS - Last Filed: 06/08/21 12:42> Assessment/Plan (1) [...] Code(s): I25.10 - Atherosclerotic heart disease of [place] coronary artery without angina pectoris Status: Acute [...] Keflex for worsening decubitus ulcer by hospitalist [employer]. Final wound culture obtained on 06/05/2021 demonstrates [...] planning:Plan for DC next week to the [facility]. I spent greater than 15 minutes for services, including paau-ns-aime encounter with the patient, discussion of the case, plan of care, and exam; and ibyjkfr-hu-dbtu activities, such as reviewing pertinent splunk consultant documentation, recent therapy notes, laboratory and radiology studies, and discussion of case with care team including physician, nursing, sample case porter, and therapists. More than 50 % of [...] Keflex for worsening decubitus ulcer by hospitalist G[employer] MA[employer] AND LINE FITTER. Final wound culture obtained on 06/05/2021 demonstrates [...] greater than 15 minutes for services, including pozn-cv-ntgz encounter with the patient, discussion of the case, plan of care, and exam; and dykhuin-ai-qvkg activities, such as reviewing pertinent splunk consultant documentation, recent therapy notes, laboratory and radiology studies, and discussion of case with care team including physician, nursing, sample case porter, and therapists. More than 50 % of time was spent on patient/family counseling or coordination ofcare. Plan: I completed a substantive portion of this encounter, the medical decision makingportion of this note in its entirety, including Allied health note review, nursing note review, splunk consultant note review, discussion with nursing and case management, and more than 50% of my time was spent on counseling and coordination of care, time spent 16 minutes Patient was personally seen by me, Dr. Palafox, on the day of encounter, reviewed the history and the relevant portions of the chart, including current orders, allied health and splunk consultant notes, labs/imaging and performed fletcher elements of [...] <Electronically signed by Horace Palafox MD> 06/08/21 4193 [facility] Work Phone: 1(888) 720-957605-02-2022 Progress note Author Horace Palafox [facility] June 08, 2021 1:32pm Note Date/Time June 05, 2021 1:[address] [facility] [address] [place] [address] Physiatry(Rehab) Progress Note Signed Patient: Angella Pradhan MR#: [id number] : 1945 Acct:[id number] Age/Sex: 75 / M Adm Date: 2 Loc: Room: 9Z5537-5 Type : ADM IN Attending Dr: Horace Palafox MD Copies to: ~ <Cesilia Rosales APRN - Last Filed: 06/05/21 13:55> Date of Service: 06/05/2021 Subjective <Cesilia CASIMIRO Rosales - Last Filed: 06/05/21 13:55> Subjective Narrative: Mr. Pradhan is a 75 year old male with a past medical history of arthritis, BPH,CAD, NC s/p coronary artery stenting, who is admitted to rehabilitation for functional decline status post elective left total hip arthroplasty. He reports a longstanding history of bilateral hip pain as a result of wecl-em-cwbk . The surgery was planned to be performed sometime last year however he sustained a myocardial infarction in July 2020, which required stenting and resulted in prolonged recovery. He has been residing at [facility] since his heart attack. He [...] follow. He plans to return back to [facility] at discharge. At baseline he [...] and contact-guard assist. Review of Systems <Cesilia CASIMIRO Rosales - Last Filed: 06/05/21 13:55> Constitutional Constitutional: [...] Exam <Cesilia Rosales APRN - Last Filed: 06/05/21 13:55> Physical Exam [...] % (Auto) 52.3 Lymph % (Auto) 25.2 [place] % (Auto) 15.2 Eos % (Auto) 6.4 Baso % (Auto) 0.9 Neut # (Auto) 4.7 Lymph # (Auto) 2.2 [place] # (Auto) 1.3 H Eos # (Auto) [...] mg 05/27/21 15:47 Bisacodyl 10 Mg Supp.Rect CO 05/27/22 15:46 DAILY PRN Constipation Calcium Carbonate [...] 15:47 Docusate Enema 283 Mg/5 Ml Enema CO 05/27/22 15:46 DAILY PRN Constipation Finasteride 5 [...] Code(s): I25.10 - Atherosclerotic heart disease of [place] coronary artery without angina pectoris Status: Acute [...] Hospitalist team consulted to further manage. * [place] to the left hip incision removed. Incision [...] planning:Plan for DC next week to the [facility]. I spent greater than 15 minutes for services, including qcfr-kr-tbfy encounter with the patient, discussion of the case, plan of care, and exam; and ngklmss-nm-gbcc activities, such as reviewing pertinent splunk consultant documentation, recent therapy notes, laboratory and radiology studies, and discussion of case with care team including physician, nursing, sample case porter, and therapists. More than 50 % of [...] the chart, including currentorders, allied health and splunk consultant notes, labs/imaging and plan of care as above. Documented By: Cesilia Rosales APRN 06/05/21 1 341 Signed By: <Electronically signed by CASIMIRO Rosales> 06/05/21 1356 <Electronically signed by Horace Palafox MD> 06/08/21 1332 [facility] Work Phone: 1(815) 540-564204-29-2022 Progress note Author Jackelyn Ambriz [facility] June 05, 2021 4:20pm Note Date/Time June 05, 2021 3:[address] [facility] [address] [place] [address] Hospitalist Progress Note Signed Patient: Angella Pradhan MR#: [id number] : 1945 Acct:[id number] Age/Sex: 75 / M Adm Date: 2 Loc: Room: 3I4990-9 Type : ADM IN Attending Dr: Horace [...] mg 05/27/21 15:47 Bisacodyl 10 Mg Supp.Rect CO 05/27/22 15:46 DAILY PRN Constipation Calcium Carbonate [...] 15:47 Docusate Enema 283 Mg/5 Ml Enema CO 05/27/22 15:46 DAILY PRN Constipation Finasteride 5 [...] 2 1528 Signed By: <Electronically signed by BATSHEVA-DESHAWN Ambriz> 06/05/21 1338 [facility] Work Phone: 1(863) 116-369904-28-2022 Progress note Author Horace Palafox [facility] June 04, 2021 10:02am Note Date/Time June 04, 2021 10: 02am [facility] [address] [place] [address] Physiatry(Rehab) Progress Note Signed Patient: Angella Pradhan MR#: [id number] : 1945 Acct:[id number] Age/Sex: 75 / M Adm Date: 2 Loc: Room: [address] [place] [address] Type : ADM IN Attending Dr: Horace Palafox MD Copies to: ~ Date of Service: 06/04/2021 Subjective Subjective Narrative: Mr. Pradhan is a 75 year old male with a past medical history of arthritis, BPH,CAD, NC s/p coronary artery stenting, who is admitted to rehabilitation for functional decline status post elective left total hip arthroplasty. He reports a longstanding history of bilateral hip pain as a result of djdu-yq-ayiw . The surgery was planned to be performed sometime last year however he sustained a myocardial infarction in July 2020, which required stenting and resulted in prolonged recovery. He has been residing at [facility] since his heart attack. He [...] follow. He plans to return back to [facility] at discharge. At baseline he [...] mg 05/27/21 15:47 Bisacodyl 10 Mg Supp.Rect CO 05/27/22 15:46 DAILY PRN Constipation Calcium Carbonate 500 mg 05/27/21 17:00 06/04/21 08:34 Calcium Carbonate 500 Mg Tablet PO 05/27/22 16:59 500 mg BID.WITH.MEALS EARLENE Administration Digoxin 125 mcg 05/28/21 09:00 06/04/21 08:35 Digoxin 125 Mcg Tablet PO 05/28/22 08:59 125 mcg QAM [facility] Administration Docusate Sodium 100 mg 05/27/21 15:47 05/31/21 12:11 Docusate 100 Mg Capsule PO 05/27/22 15:46 100 mg BID PRN Administration Constipation Docusate Sodium 283 mg 05/27/21 15:47 Docusate Enema 283 Mg/5 Ml Enema CO 05/27/22 15:46 DAILY PRN Constipation Finasteride 5 mg 05/28/21 09:00 06/04/21 08:34 Finasteride 5 Mg Tablet PO 05/28/22 08:59 5 mg QAM [facility] Administration Gabapentin 300 mg 05/27/21 21:00 06/04/21 [...] Tablet PO 05/28/22 08:59 50 mcg QAM [facility] Administration Assessment/Plan Assessment/Plan (1) Impaired mobility and [...] Code(s): I25.10 - Atherosclerotic heart disease of [place] coronary artery without angina pectoris Status: Acute [...] planning:Plan for DC next week to the [facility]. Documented By: Horace Palafox MD 06/04/21 0958 Signed By: <Electronically signed by Horace Palafox MD> 06/04/21 1002 [facility] Work Phone: 1([phone]) [phone] Progress note Author Horace Palafox [facility] June 03, 2021 2:24pm Note Date/Time June 03, 2021 10: 22am [facility] [address] [place] [address] Physiatry(Rehab) Progress Note Signed Patient: Angella Pradhan MR#: [id number] : 1945 Acct:[id number] Age/Sex: 75 / M Adm Date: 2 Loc: Room: [address] [place] [address] Type : ADM IN Attending Dr: Horace Palafox MD Copies to: ~ <Cesilia Rosales APRN - Last Filed: 06/03/21 10:29> Date of Service: 06/03/2021 Subjective <Cesilia Rosales APRN - Last Filed: 06/03/21 10:29> Subjective Narrative: Mr. Pradhan is a 75 year old male with a past medical history of arthritis, BPH,CAD, NC s/p coronary artery stenting, who is admitted to rehabilitation for functional decline status post elective left total hip arthroplasty. He reports a longstanding history of bilateral hip pain as a result of iilv-of-swif . The surgery was planned to be performed sometime last year however he sustained a myocardial infarction in July 2020, which required stenting and resulted in prolonged recovery. He has been residing at [facility] since his heart attack. He [...] follow. He plans to return back to [facility] at discharge. At baseline he [...] mg 05/27/21 15:47 Bisacodyl 10 Mg Supp.Rect CO 05/27/22 15:46 DAILY PRN Constipation Calcium Carbonate [...] 15:47 Docusate Enema 283 Mg/5 Ml Enema CO 05/27/22 15:46 DAILY PRN Constipation Finasteride 5 mg 05/28/21 09:00 06/03/21 08:04 Finasteride 5 Mg Tablet PO 05/28/22 08:59 5 mg QAM EARLENE Administration Gabapentin 300 mg 05/27/21 21:00 06/03/21 [...] Code(s): I25.10 - Atherosclerotic heart disease of [place] coronary artery without angina pectoris Status: Acute [...] Allied health note review, nursing note review, splunk consultant note review, discussion with nursing and case management, and more than 50% of my time was spent on counseling and coordination of care, time spent 16 minutes. Patient was personally seen by me, Dr. Palafox, on the day of encounter, reviewed the history and the relevant portions of the chart, including current orders, allied health and splunk consultant notes, labs/imaging and performed fletcher elements of [...] <Electronically signed by Horace Palafox MD> 06/03/21 1174 [facility] Work Phone: 1(409) 425-780804-26-2022 Progress note Author Horace Palafox [facility] June 02, 2021 3:23pm Note Date/Time June 02, 2021 12: 11pm [facility] [address] [place] [address] Physiatry(Rehab) Progress Note Signed Patient: Angella Pradhan MR#: [id number] : 1945 Acct:[id number] Age/Sex: 75 / M Adm Date: 2 Loc: Room: [address] [place] [address] Type : ADM IN Attending Dr: Horace Palafox MD Copies to: ~ <Brandi Mccain , RES - Last Filed: 06/02/21 12:11> Date of Service: 06/02/2021 Subjective <Brandi Mccain DO, RES - Last Filed: 06/02/21 12:11> Subjective Narrative: Mr. Pradhan is a 75 year old male with a past medical history of arthritis, BPH,CAD, NC s/p coronary artery stenting, who is admitted to rehabilitation for functional decline status post elective left total hip arthroplasty. He reports a longstanding history of bilateral hip pain as a result of lqtw-vy-jsuo . The surgery was planned to be performed sometime last year however he sustained a myocardial infarction in July 2020, which required stenting and resulted in prolonged recovery. He has been residing at [facility] since his heart attack. He [...] follow. He plans to return back to [facility] at discharge. At baseline he [...] mg 05/27/21 15:47 Bisacodyl 10 Mg Supp.Rect CO 05/27/22 15:46 DAILY PRN Constipation Calcium Carbonate [...] 15:47 Docusate Enema 283 Mg/5 Ml Enema CO 05/27/22 15:46 DAILY PRN Constipation Finasteride 5 [...] Cap.Er.24h PO 05/28/22 21:59 Not Given QHS [facility] Vitamin D 50 mcg 05/28/21 09:00 06/02/21 09:32 Cholecalciferol 25 Mcg (1,000 Units) Tablet PO 05/28/22 08:59 50 mcg QAM E[facility] Administration Assessment/Plan <Brandi MccainDO, RES - Last Filed: 06/02/21 12:11> Assessment/Plan [...] Code(s): I25.10 - Atherosclerotic heart disease of [place] coronary artery without angina pectoris Status: Acute [...] living. * Discharge plan is back to [facility] in 7 to 10 days. [...] Allied health note review, nursing note review, splunk consultant note review, discussion with nursing and case management, and more than 50% of my time was spent on counseling and coordination of care, time spent 16 minutes. Patient was personally seen by me, Dr. Palafox, on the day of encounter, reviewed the history and the relevant portions of the chart, including current orders, allied health and splunk consultant notes, labs/imaging and performed fletcher elements of exam and I formulated the plan of care and facilitated the medical decision making and confirmed the Resident note, as above DC Ghotra today for voiding trial Vitals are stable Improving with therapy. Documented By: Brandi Mccain DO, RES 06/02/21 1 207 Signed By: <Electronically signed by DO JAYDA Mccain> 06/02/21 1211 <Electronically signed by Horace Palafox MD> 06/02/21 9831 [facility] Work Phone: 1(612) 491-248504-25-2022 Progress note Author Horace Palafox [facility] June 01, 2021 8:04pm Note Date/Time June 01, 2021 11: 26am [facility] [address] [place] [address] Physiatry(Rehab) Progress Note Signed Patient: Angella Pradhan MR#: [id number] : 1945 Acct:[id number] Age/Sex: 75 / M Adm Date: 2 Loc: Room: [address] [place] [address] Type : ADM IN Attending Dr: Horace Palafox MD Copies to: ~ <Brandi Mccain DO, RES - Last Filed: 06/01/21 11:26> Date of Service: 06/01/2021 Subjective <Brandi Mccain DO, RES - Last Filed: 06/01/21 11:26> Subjective Narrative: Mr. Pradhan is a 75 year old male with a past medical history of arthritis, BPH,CAD, [place] s/p coronary artery stenting, who is admitted to rehabilitation for functional decline status post elective left total hip arthroplasty. He reports a longstanding history of bilateral hip pain as a result of lqcd-pa-mbzu . The surgery was planned to be performed sometime last year however he sustained a myocardial infarction in July 2020, which required stenting and resulted in prolonged recovery. He has been residing at [facility] since his heart attack. He [...] follow. He plans to return back to [facility] at discharge. At baseline he [...] help with sleep. Review of Systems <Brandi DO Adán, RES - Last Filed: 06/01/21 11:26> Review [...] focal neurologic signs. PSYCHIATRIC: Normal affect. Objective <Branditamica Mccain DO, RES - Last Filed: 06/01/21 [...] mg 05/27/21 15:47 Bisacodyl 10 Mg Supp.Rect CO 05/27/22 15:46 DAILY PRN Constipation Calcium Carbonate [...] 15:47 Docusate Enema 283 Mg/5 Ml Enema CO 05/27/22 15:46 DAILY PRN Constipation Finasteride 5 [...] Code(s): I25.10 - Atherosclerotic heart disease of [place] coronary artery without angina pectoris Status: Acute [...] living. * Discharge plan is back to [facility] in 7 to 10 days. [...] Allied health note review, nursing note review, splunk consultant note review, discussion with nursing and case management, and more than 50% of my time was spent on counseling and coordination of care, time spent 16 minutes. Patient was personally seen by me, Dr. Palafox, on the day of encounter, reviewed the history and the relevant portions of the chart, including current orders, allied health and splunk consultant notes, labs/imaging and performed fletcher elements of exam and I formulated the plan of care and facilitated the medical decision making and confirmed the medical student note, as above Voiding trial tomorrow Documented By: Brandi Mccain DO, JAYDA 06/01/21 1 120 Signed By: <Electronically signed by DO JAYDA Mccain> 06/01/21 1126 <Electronically signed by Horace Palafox MD> 06/01/212003 [facility] Work Phone: 1(609) 532-680404-22-2022 Progress note Author Horace Palafox [facility] May 29, 2021 3:37pm Note Date/Time May 29, 2021 12: 02pm [facility] [address] [place] [address] Physiatry(Rehab) Progress Note Signed with Yolanda Patient: Angella Pradhan MR#: [id number] : 1945 Acct:[id number] Age/Sex: 75 / M Adm Date: 2 Loc: 5T Room: 2D0814-6 Type : ADM IN Attending Dr: Horace Palafox MD Copies to: ~ ADDENDUM1 I reviewed the history and the relevant portions of the chart, including currentorders, allied health and splunk consultant notes, labs/imaging and plan of care as [...] a past medical history of arthritis, BPH,CAD, [place] s/p coronary artery stenting, who is admitted to rehabilitation for functional decline status post elective left total hip arthroplasty. He reports a longstanding history of bilateral hip pain as a result of zznu-hi-qvsb . The surgery was planned to be performed sometime last year however he sustained a myocardial infarction in July 2020, which required stenting and resulted in prolonged recovery. He has been residing at [facility] since his heart attack. He [...] follow. He plans to return back to [facility] at discharge. At baseline he [...] a past medical history of arthritis, BPH,CAD, [place] s/p coronary artery stenting, who is admitted to rehabilitation for functional decline status post elective left total hip arthroplasty. He reports a longstanding history of bilateral hip pain as a result of lysn-mn-apsg . The surgery was planned to be performed sometime last year however he sustained a myocardial infarction in July 2020, which required stenting and resulted in prolonged recovery. He has been residing at [facility] since his heart attack. He [...] follow. He plans to return back to [facility] at discharge. At baseline he [...] mg 05/27/21 15:47 Bisacodyl 10 Mg Supp.Rect CO 05/27/22 15:46 DAILY PRN Constipation Calcium Carbonate [...] 15:47 Docusate Enema 283 Mg/5 Ml Enema CO 05/27/22 15:46 DAILY PRN Constipation Finasteride 5 [...] Code(s): I25.10 - Atherosclerotic heart disease of [place] coronary artery without angina pectoris Status: Acute [...] daily living. Discharge plan is back to [facility] in 7 to 10 days. <Horace Palafox [...] daily living. Discharge plan is back to [facility] in 7 to 10 days. [...] status: Dependent to ambulate. Discharge planning: To [facility] most likely, possibly 2 weeks Documented By: Brandi Mccain DO, RES 05/29/21 1 154 Signed By: <Electronically signed by RES Brandi Mccain> 05/29/21 1204 <Electronically signed by Horace Palafox MD> 05/29/21 1536 [facility] Work Phone: 1(717) 749-977904-22-2022 History and physical note Author Horace Palafox [facility] May 29, 2021 12:10pm Note Date/Time May 28, 2021 9:[address] [facility] [address] [place] [address] Physiatry (Rehab) H&P Signed Patient: Angella Pradhan MR#: [id number] : 1945 Acct:[id number] Age/Sex: 75 / M Adm Date: 2 Loc: Room: 7J9267-0 Type : ADM IN Attending Dr: Horace [...] a past medical history of arthritis, BPH,CAD, [place] s/p coronary artery stenting, who is admitted to rehabilitation for functional decline status post elective left total hip arthroplasty. He reports a longstanding history of bilateral hip pain as a result of uqai-ko-zsha . The surgery was planned to be performed sometime last year however he sustained a myocardial infarction in July 2020, which required stenting and resulted in prolonged recovery. He has been residing at [facility] since his heart attack. He [...] follow. He plans to return back to [facility] at discharge. At baseline he [...] 5 Mg Tablet) 5 mg PO BID EARLENE Stop: 05/27/22 20:59 Last Admin: 05/28/21 08:39 Dose: 5 mg Documented by: Ascorbic Acid (Ascorbic Acid 500 Mg Tablet) 500 mg PO BID.WITH.MEALS EARLENE Stop: 05/27/22 16:59 Last Admin: 05/28/21 08:38 Dose: 500 mg Documented by: Bisacodyl (Bisacodyl 10 Mg Supp.Rect) 10 mg CO DAILY PRN PRN Reason: Constipation Stop: 05/27/22 15:46 Calcium Carbonate (Calcium Carbonate 500 Mg Tablet) 500 mg PO BID.WITH.MEALS EARLENE Stop: 05/27/22 16:59 Last Admin: 05/28/21 08:39 [...] Enema 283 Mg/5 Ml Enema) 283 mg CO DAILY PRN PRN Reason: Constipation Stop: 05/27/22 15:46 Finasteride (Finasteride 5 Mg Tablet) 5 mg PO QAM [facility] Stop: 05/28/22 08:59 Last Admin: 05/28/21 08:41 [...] 1 Cap Capsule) 1 cap PO QAM [facility] Stop: 05/28/22 08:59 Last Admin: 05/28/21 08:40 [...] 20 Mg Capsule.Dr) 40 mg PO QAM [facility] Stop: 05/28/22 08:59 Last Admin: 05/28/21 08:39 [...] 8.6 Mg Tablet) 2 tab PO DAILY@12 [facility] Stop: 05/28/22 11:59 Sodium Chloride (Sodium Chloride 0.9 % 10 Ml Syringe) 0 ml IV-PUSH PRN PRN PRN Reason: Flush Stop: 05/27/22 15:46 Sotalol HCl (Sotalol 120 Mg Tablet) 60 mg PO BID EARLENE Stop: 05/27/22 20:59 Last Admin: 05/28/21 08:40 Dose: 60 mg Documented by: Tamsulosin HCl (Tamsulosin 0.4 Mg Cap.Er.24h) 0.4 mg PO QHS [facility] Stop: 05/28/22 21:59 Vitamin D (Cholecalciferol 25 Mcg (1,000 Units) Tablet) 50 mcg PO QAM [facility] Stop: 05/28/22 08:59 [...] % (Auto) 54.0 Lymph % (Auto) 20.6 [place] % (Auto) 18.1 Eos % (Auto) 6.6 Baso % (Auto) 0.7 Neut # (Auto) 4.4 Lymph # (Auto) 1.7 [place] # (Auto) 1.5 H Eos # (Auto) [...] 14 days Expected Discharge Destination: Home [facility]: 08 Primary Diagnosis: Left total hip arthroplasty Patient?s/Family?s [...] 24 hour daily monitoring and intervention from [employer] as well as other consulting physicians including internal medicine as well as 24 hour daily bucket hooker nursing - for medical safe / optimal [...] equipment to enhance the patient's a functional church Ensure adequate nutrition and hydration Sleep: Reports no issues Pain: Reports well controlled on current regimen Discharge planning: Back to [facility] in 7 to 10 days. I spent greater than 30 minutes for services, including xdyh-zr-okuc encounter with the patient, discussion of the case, plan of care, and exam; and uyxlnvk-pr-ygby activities, such as reviewing pertinent splunk consultant documentation, recent therapy notes, laboratory and radiology studies, and discussion of case with care team including physician, nursing, sample case porter, and therapists. More than 50 % of [...] equipment to enhance the patient's a functional church Encourage deep breathing exercises and incentive spirometry RD evaluation Ensure adequate nutrition and hydration Discharge planning. (4) Pressure ulcer, stage 1: (5) BPH (benign prostatic hyperplasia): (6) Impaired mobility and activities of daily living: Plan: I completed a substantive portion of this encounter, the medical decision makingportion of this note in its entirety, including Allied health note review, nursing note review, splunk consultant note review, discussion with nursing and case management, and more than 50% of my time was spent on counseling and coordination of care, time spent 45 minutes. This was completed on 05/28/21, at 10:30. Patient was personally seen by me, Dr. Palafox, on the day of encounter, reviewed the history and the relevant portions of the chart, including current orders, allied health and splunk consultant notes, labs/imaging and performed fletcher elements of exam and I formulated the plan of care and facilitated the medical decision making and confirmed the nurse practitioner note, as above Documented By: Cesilia Rosales APRN 05/28/21 1 021 Signed By: <Electronically signed by CASIMIRO Rosales> 05/28/21 1012 <Electronically signed by Horace Palafox MD> 05/29/21 1210 [facility] Work Phone: 1(982) 801-683404-22-2022 Consult note Author Darren Woods [facility] May 29, 2021 5:16am Note Date/Time May 28, 2021 8:[address] [facility] [address] [place] [address] Hospitalist Consult Note Signed Patient: Angella Pradhan MR#: [id number] : 1945 Acct:[id number] Age/Sex: 75 / M Adm Date: 2 Loc: Room: [address] [place] [address] Type : ADM IN Attending Dr: Horace Palafox MD Copies to: BUNNY Nichols MD Joseph Riley, MD Mazhar Rahman, MD~ HPI DATE OF [...] hip arthroplasty. Postoperative course was complicated by A. fib RVR for which she was followed by [...] unless noted below or in the HPI. COUNT INCLUDES THE [facility] Vaccinated for COVID-19?: Yes Medical History Arthritis [...] mg 05/27/21 15:47 Bisacodyl 10 Mg Supp.Rect CO 05/27/22 15:46 DAILY PRN Constipation Calcium Carbonate [...] 15:47 Docusate Enema 283 Mg/5 Ml Enema CO 05/27/22 15:46 DAILY PRN Constipation Finasteride 5 [...] 05/28/21 09:00 05/28/21 08:39 Omeprazole 20 Mg Capsule.Dr PO 05/28/22 [...] % (Auto) 54.0, Lymph % (Auto) 20.6, Canyon % (Auto) 18.1, Eos % (Auto) 6.6, Baso % (Auto) 0.7, Neut # (Auto) 4.4, Lymph # (Auto) 1.7, Canyon # (Auto) 1.5H, Eos # (Auto) 0.5 [...] signed by Darren Woods MD> 05/29/21 0516 [facility] Work Phone: 1(959) 466-453304-20-2022 Progress note Author Pino Dunbar [facility] May 27, 2021 12:02pm Note Date/Time May 27, 2021 12: 01pm [facility] [address] [place] [address] Cardiology Progress Note Signed Patient: Angella Pradhan MR#: [id number] : 1945 Acct:[id number] Age/Sex: 75 / M Adm Date: 2 Loc: Room: [address] [place] [address] Type : ADM IN Attending Dr: Soham [...] Code(s): I25.10 - Atherosclerotic heart disease of [place] coronary artery without angina pectoris Status: Acute [...] signed by MD Pino Dunbar> 05/27/21 1202 [facility] Work Phone: [phone] 140-138104-19-2022 Progress note Author Rogers Lujan [facility] May 26, 2021 1:00pm Note Date/Time May 26, 2021 1:[address] [facility] [address] [place] [address] Hospitalist Progress Note Signed Patient: Angella Pradhan MR#: [id number] : 1945 Acct:[id number] Age/Sex: 75 / M Adm Date: 2 Loc: 4N Room: [address] [place] [address] Type : ADM IN Attending Dr: Soham [...] Dose Route Start Last Admin Trade Name Cecily PRN Reason Stop Dose Admin Acetaminophen 1,000 [...] 05/22/21 21:00 05/26/21 08:22 Aspirin 81 Mg Tablet. PO 05/22/22 20:59 [...] Oil 1 each 05/25/21 15:54 Mineral Oil (Wirt) 1 Each Enema CO ONCE PRN Constipation Mirtazapine 30 mg 05/22/21 [...] signed by Rogers Sharma MD> 05/26/21 1300 [facility] Work Phone: [phone] Progress note Author Pino Dunbar [facility] May 26, 2021 10:25am Note Date/Time May 26, 2021 10: 24am [facility] [address] [place] [address] Cardiology Progress Note Signed Patient: Angella Pradhan MR#: [id number] : 1945 Acct:[id number] Age/Sex: 75 / M Adm Date: 2 Loc: Room: [address] [place] [address] Type : ADM IN Attending Dr: Soham [...] Code(s): I25.10 - Atherosclerotic heart disease of [place] coronary artery without angina pectoris Status: Acute (3) Hyperlipidemia: Code(s): E78.5 - Hyperlipidemia, unspecified Status: Acute Plan 1. Continue present management 2. If no bleeding in the next 24 to 48 hours we will increase Eliquis to 5 mg twice daily Documented By: Pino Dunbar MD 05/26/21 1023 Signed By: <Electronically signed by MD Pino Dunbar> 05/26/21 1025 [facility] Work Phone: [phone] 564-131604-18-2022 Progress note Author Rogers Lujan [facility] May 25, 2021 1:58pm Note Date/Time May 25, 2021 1:[address] [facility] [address] [place] [address] Hospitalist Progress Note Signed Patient: Angella Pradhan MR#: [id number] : 1945 Acct:[id number] Age/Sex: 75 / M Adm Date: 2 Loc: Room: [address] [place] [address] Type : REG SDC Attending Dr: Soham [...] 05/22/21 21:00 05/25/21 08:25 Aspirin 81 Mg Tablet. PO 05/22/22 20:59 [...] 05/25/21 08:25 Ferrous Sulfate 324 Mg Tablet.Dr PO 05/22/22 [...] Oil 1 each 05/25/21 15:54 Mineral Oil (Wirt) 1 Each Enema CO ONCE PRN Constipation Mirtazapine 30 mg 05/22/21 [...] managing Documented By: Rogers Sharma MD 2 0185 Signed By: <Electronically signed by Rogers Sharma MD> 05/25/21 6250 [facility] [place] Work Phone: [phone] 559-717904-18-2022 Progress note Author Pino Dunbar [facility] May 25, 2021 12:00pm Note Date/Time May 25, 2021 12: 00pm [facility] [address] [place] [address] Cardiology Progress Note Signed Patient: Angella Pradhan MR#: [id number] : 1945 Acct:[id number] Age/Sex: 75 / M Adm Date: 2 Loc: Room: [address] [place] [address] Type : REG SDC Attending Dr: Soham [...] Appearance Clear Urine pH 6.5 Ur Specific Cunningham 1.007 Urine Protein Trace H Urine Glucose [...] Code(s): I25.10 - Atherosclerotic heart disease of [place] coronary artery without angina pectoris Status: Acute [...] signed by MD Pino Dunbar> 05/25/21 1200 [facility] Work Phone: [phone] 611-994504-17-2022 Progress note Author Antonieta Combs [facility] May 24, 2021 2:43pm Note Date/Time May 24, 2021 2:[address] [facility] [address] [place], [place] [address] Hospitalist Progress Note Signed Patient: Angella Pradhan MR#: [id number] : 1945 Acct:[id number] Age/Sex: 75 / M Adm Date: 2 Loc: 4N Room: [address] [place] [address] Type : REG SDC Attending Dr: Soham [...] 05/22/21 21:00 05/24/21 08:38 Aspirin 81 Mg Tablet. PO 05/22/22 20:59 81 mg BID EARLENE Administration Bisacodyl 10 mg 05/24/21 15:54 Bisacodyl 5 Mg Tablet. PO ONCE PRN Constipation Calcium Carbonate 1 tab 05/22/21 21:00 05/24/21 08:38 Calcium Carbonate/Vitamin D3 500 Mg/200 Unit Tablet PO 05/22/22 20:59 1 tab BID EALRENE Administration Diphenhydramine HCl 25 mg 05/22/21 15:54 [...] Lactated Ringers IV 05/22/22 15:59 Not Given .[id number] EARLENE Lact Acid/Bifidobact/Lact [place]/Streptoc Th 1 cap [...] Oil 1 each 05/25/21 15:54 Mineral Oil (Wirt) 1 Each Enema CO ONCE PRN Constipation Mirtazapine 30 mg 05/22/21 [...] fevers, Documented By: Antonieta Combs MD 05/24/21 6116 Signed By: <Electronically signed by Antonieta Combs MD> 05/24/21 0019 [facility] [place] Work Phone: [phone] Progress note Author Soham Cash [facility] May 24, 2021 1:36pm Note Date/Time May 24, 2021 1:[address] [facility] [address] [place], [place] [address] Orthopedic Progress Note Signed Patient: Angella Pradhan MR#: [id number] : 1945 Acct:[id number] Age/Sex: 75 / M Adm Date: 2 Loc: 4N Room: [address] [place] [address] Type : REG SDC Attending Dr: Soham [...] % (Auto) 68.0 Lymph % (Auto) 14.1 Canyon % (Auto) 14.9 Eos % (Auto) 2.6 Baso % (Auto) 0.4 Neut # (Auto) 7.5 Lymph # (Auto) 1.6 Canyon # (Auto) 1.6 H Eos # (Auto) 0.3 Baso # (Auto) 0.0 Nucleated RBC % (auto) 0.0 PHA Creatinine Clear 118.55 Sodium 136 Potassium Chloride 102 Carbon Dioxide 26.4 BUN 9 Creatinine 0.86 Est GFR ( Amer) > 60 Est GFR (Non-Af Amer) > 60 Glucose 99 Calcium 8.4 TSH 3rd Generation 0.86 Urine Color Urine Appearance Urine pH Ur Specific Cunningham Urine Protein Urine Glucose (UA) Urine Ketones Urine Occult Blood Urine Nitrite Urine Bilirubin Urine Urobilinogen Ur Leukocyte Esterase Urine RBC Urine WBC Ur Squamous Epith Cells Urine Bacteria Hyaline Casts 05/24/21 05/24/21 05:58 12:38 Corrected WBC Uncorrected WBC Count RBC Hgb Hct MCV MCH MCHC RDW Plt Count MPV Neut % (Auto) Lymph % (Auto) Canyon % (Auto) Eos % (Auto) Baso % (Auto) Neut # (Auto) Lymph # (Auto) Canyon # (Auto) Eos # (Auto) Baso # (Auto) Nucleated RBC % (auto) PHA Creatinine Clear Sodium Potassium 4.3 Chloride Carbon Dioxide BUN Creatinine Est GFR ( Amer) Est GFR (Non-Af Amer) Glucose Calcium TSH 3rd Generation Urine Color Yellow Urine Appearance Clear Urine pH 6.5 Ur Specific Cunningham 1.007 Urine Protein Trace H Urine Glucose [...] Code(s): I25.10 - Atherosclerotic heart disease of [place] coronary artery without angina pectoris Status: Acute (2) Paroxysmal A-fib: Code(s): I48.0 - Paroxysmal atrial fibrillation Status: Acute (3) Left hip pain: Plan: 1. Agree with cardiology appreciate consultation. 2. Orthopedically stable await medical stability for probable discharge to [facility]. 3. Patient lives by himself and has [...] signed by Soham Cash Jr, DO> 05/24/21 [facility] Work Phone: [phone] 100-371404-17-2022 Progress note Author Parminder Arredondo [facility] May 24, 2021 10:31am Note Date/Time May 24, 2021 10: 31am [facility] [address] [place] [address] Cardiology Progress Note Signed Patient: Angella Pradhan MR#: [id number] : 1945 Acct:[id number] Age/Sex: 75 / M Adm Date: 2 Loc: 4N Room: [address] [place] [address] Type : REG SDC Attending Dr: Soham [...] % (Auto) 68.0 Lymph % (Auto) 14.1 Canyon % (Auto) 14.9 Eos % (Auto) 2.6 Baso % (Auto) 0.4 Neut # (Auto) 7.5 Lymph # (Auto) 1.6 Canyon # (Auto) 1.6 H Eos # (Auto) [...] MPV Neut % (Auto) Lymph % (Auto) Canyon % (Auto) Eos % (Auto) Baso % (Auto) Neut # (Auto) Lymph # (Auto) Canyon # (Auto) Eos # (Auto) Baso # [...] Code(s): I25.10 - Atherosclerotic heart disease of [place] coronary artery without angina pectoris Status: Acute [...] MD Parminder Arredondo> 05/24/21 1031 [facility] Work Phone: [phone] Consult note Author Parminder Arredondo [facility] May 23, 2021 2:22pm Note Date/Time May 23, 2021 2:[address] [facility] [address] [place] [address] Cardiology Consult Note Signed Patient: Angella Pradhan MR#: [id number] : 1945 Acct:[id number] Age/Sex: 75 / M Adm Date: 2 Loc: 4N Room: 4F5741-9 Type : REG SDC Attending Dr: Soham [...] x10E3/uL Lymph # (Auto) 1.1 (1.00-4.8) x10E3/uL Canyon # (Auto) 1.3 H (0.0-0.8) x10E3/uL Eos [...] / 2300 1000 / 1000 mls/hr IV .[id number] [facility] Rx#: [id number] ceFAZolin 1GM-*NS* 1 gm In 50 50 / 50 ml @ 100 mls/hr IV Q8H EARLENE Rx#: [id number] Oral 250 / 250 150 / 150 [...] determined, probably by Dr. Dunbar his primary supervisor lathing, whether antiarrhythmic therapy will be necessary. Code(s): I48.0 - Paroxysmal atrial fibrillation (2) Coronary artery disease: Assessment/Problem Details: Stable with no chest pain. He had coronary intervention July 28, 2020. Code(s): I25.10 - Atherosclerotic heart disease of [place] coronary artery without angina pectoris Plan Continue aspirin. Add Eliquis 2.5 mg twice daily. Intensify to 5 mg twice daily in the future. Documented By: Parminder Arredondo MD 1417 Signed By: <Electronically signed by MD Parminder Arredondo> 05/23/211421 [facility] Work Phone: [phone] 446-747504-16-2022 Progress note Author Soham Cash [facility] May 23, 2021 1:46pm Note Date/Time May 23, 2021 1:[address] [facility] [address] [place] [address] Orthopedic Progress Note Signed Patient: Angella Pradhan MR#: [id number] : 1945 Acct:[id number] Age/Sex: 75 / M Adm Date: 2 Loc: Room: [address] [place] [address] Type : [facility] Attending Dr: Soham Cash Jr DO Copies [...] % (Auto) 67.1 Lymph % (Auto) 14.1 Canyon % (Auto) 16.6 Eos % (Auto) 1.8 Baso % (Auto) 0.4 Neut # (Auto) 5.4 Lymph # (Auto) 1.1 Canyon # (Auto) 1.3 H Eos # (Auto) [...] signed by Soham Cash Jr, DO> 05/23/21 1346 [facility] Work Phone: [phone] 250-274904-16-2022 Progress note Author Antonieta Combs [facility] May 23, 2021 1:17pm Note Date/Time May 23, 2021 1:[address] [facility] [address] [place] [address] Hospitalist Progress Note Signed Patient: Angella Pradhan MR#: [id number] : 1945 Acct:[id number] Age/Sex: 75 / M Adm Date: 2 Loc: Room: [address] [place] [address] Type : REG [facility] Attending Dr: Soham Cash Jr DO Copies [...] 05/22/21 21:00 05/23/21 09:06 Aspirin 81 Mg Tablet.Dr GALINDO 05/22/22 20:59 [...] 05/23/21 09:28 Ferrous Sulfate 324 Mg Tablet.Dr GALINDO 05/22/22 [...] Lactated Ringers IV 05/22/22 15:59 Not Given .[id number] EARLENE Lact Acid/Bifidobact/Lact [place]ac[place]/Streptoc Th 1 cap [...] Oil 1 each 05/25/21 15:54 Mineral Oil (Wirt) 1 Each Enema CO ONCE PRN Constipation Mirtazapine 30 mg 05/22/21 22:00 05/22/21 21:12 Mirtazapine 30 Mg Tablet PO 05/22/22 21:59 Not Given QHS EARLENE Naloxone HCl 0.4 mg 05/22/21 [...] reviewed We will follow Documented By: Antonieta Combs MD 05/23/21 4187 Signed By: <Electronically signed by Antonieta Combs MD> 05/23/21 1319 [facility] Work Phone: [phone] Consult note Author Antonieta Combs [facility] May 22, 2021 5:58pm Note Date/Time May 22, 2021 5:[address] [facility] [address] [place] [address] Hospitalist Consult Note Signed Patient: Angella Pradhan MR#: [id number] : 1945 Acct:[id number] Age/Sex: 75 / M Adm Date: 2 Loc: 4 Room: [address] [place] [address] Type : REG SDC Attending Dr: Soham Cash Jr, DO Copies [...] 500 Mg Tablet PO 05/25/21 09:01 Q6H EARLENE Acetaminophen 1,000 mg 05/25/21 17:00 Acetaminophen 500 [...] Mg/200 Unit Tablet PO 05/22/22 20:59 BID [facility] Diphenhydramine HCl 25 mg 05/22/21 15:54 Diphenhydramine 25 Mg Capsule PO 05/22/22 15:53 HS PRN Insomnia Docusate Sodium 100 mg 05/22/21 21:00 Docusate 100 Mg Capsule PO 05/22/22 20:59 BID EARLENE Ferrous Sulfate 324 mg 05/22/21 17:00 Ferrous Sulfate 324 Mg Tablet. PO 05/22/22 16:59 BID.WITH.MEALS EARLENE Finasteride 5 mg 05/22/21 09:00 Finasteride 5 Mg Tablet PO 05/22/22 08:59 DAILY EARLENE Gabapentin 300 mg 05/22/21 09:00 Gabapentin 300 Mg Capsule PO 05/22/22 08:59 BID EARLENE Guaifenesin/Dextromethorphan 10 ml 05/22/21 09:00 Guaif/Dextromethorphan Syrup [...] 05/22/21 16:00 Lactated Ringers IV 05/22/22 15:59 .[id number] EARLENE Lact Acid/Bifidobact/Lact Parac[place]/Streptoc Th 1 cap 05/22/21 09:00 L. Acidophilus/Strept/La P-Carlos 1 Cap Capsule PO 05/22/22 08:59 DAILY EARLENE Levetiracetam 500 mg 05/22/21 09:00 Levetiracetam 500 Mg Tablet PO 05/22/22 08:59 BID EARLENE Magnesium Hydroxide 30 ml 05/22/21 15:54 Magnesium Hydroxide Susp 30 Ml Udc PO 05/22/22 15:53 BID PRN Constipation Mineral Oil 1 each 05/25/21 15:54 Mineral Oil (Wirt) 1 Each Enema CO ONCE PRN Constipation Mirtazapine 30 mg 05/22/21 22:00 Mirtazapine 30 Mg Tablet PO 05/22/22 21:59 QHS EARLENE Naloxone HCl 0.4 mg 05/22/21 15:54 Naloxone Hcl 0.4 Mg/Ml Vial IV-PUSH 05/22/22 15:53 Q2M PRN Opioid Reversal Nystatin 1 applic 05/22/21 09:00 Nystatin 100,000 Unit/Gram Powder 15 Gm Bottle TOPICAL 05/22/22 08:59 DAILY [facility] Omeprazole 40 mg 05/22/21 09:00 Omeprazole 20 Mg Capsule.Dr PO 05/22/22 08:59 DAILY [facility] Ondansetron HCl 4 mg 05/22/21 13:38 Ondansetron 4 Mg/2 Ml Vial IV-PUSH 05/22/21 19:39 ONCE PRN Nausea/Vomiting Ondansetron HCl 4 mg 05/22/21 15:54 Ondansetron 4 Mg/2 Ml Vial IV-PUSH 05/22/22 15:53 Q6H PRN Nausea Oxybutynin Chloride 5 mg 05/22/21 09:00 Oxybutynin Chloride 5 Mg Tablet PO 05/22/22 08:59 DAILY [facility] Oxycodone HCl 5 mg 05/22/21 15:54 Oxycodone [...] 10 Ml Syringe IV-PUSH 05/22/22 21:59 QSHIFT [facility] Sodium Chloride 0 ml 05/22/21 15:54 Sodium Chloride 0.9 % 10 Ml Syringe IV-PUSH 05/22/22 15:53 PRN PRN Flush Tamsulosin HCl 0.4 mg 05/22/21 09:00 Tamsulosin 0.4 Mg Cap.Er.24h PO 05/22/22 08:59 DAILY [facility] Vitamin D 50 mcg 05/22/21 09:00 Cholecalciferol 25 Mcg (1,000 Units) Tablet PO 05/22/22 08:59 DAILY EARLENE Exam Physical Exam Vital Signs: Temp Pulse [...] consult Documented By: Antonieta Combs MD 05/22/21 6046 Signed By: <Electronically signed by Antonieta Combs MD> 05/22/21 4564 [facility] Work Phone: Chirn complaint Narrative - Reported* ANGELLA PRADHAN is being seen for a cardiovascular evaluation . BP CHECK AND EKG DUE TO PT SYMPTOMS. * ANGELLA PRADHAN is being seen for BRADYCARDIA, LOW BP, AND PALPS. -[facility] 250 DO Work Phone: Discharge summary Author Horace Palafox [facility] June 12, 2021 10:52am Note Date/Time June 11, 2021 2:00pm [facility] [address] [place], [place] [address] Discharge Summary Signed Patient: Angella Pradhan MR#: [id number] : 1945 Acct:[id number] Age/Sex: 75 / M Adm Date: 2 Loc: Room: [address] [place] [address]: Horace Palafox MD Copies to: MD Cesilia Gonsalves, CASIMIRO Palafox MD~ Providers <Cesilia Rosales APRN - Last [...] a past medical history of arthritis, BPH,CAD, NC s/p coronary artery stenting, who is admitted to rehabilitation for functional decline status post elective left total hip arthroplasty. He reports a longstanding history of bilateral hip pain as a result of [id number] .? The surgery was planned to be performed sometime last year however he sustained a myocardial infarction in July 2020, which required stenting and resulted in prolonged recovery.? He has been residing at [facility] since his heart attack.? He [...] healing. Patient requested to be discharged to [facility] assisted living which was ok givenhis improvement [...] a past medical history of arthritis, BPH,CAD, NC s/p coronary artery stenting, who is admitted to rehabilitation for functional decline status post elective left total hip arthroplasty. He reports a longstanding history of bilateral hip pain as a result of [id number] .? The surgery was planned to be performed sometime last year however he sustained a myocardial infarction in July 2020, which required stenting and resulted in prolonged recovery.? He has been residing at [facility] since his heart attack.? He [...] healing. Patient requested to be discharged to [facility] assisted living which was ok givenhis improvement in mobility. He is able to ambulate short distances with a wheeled walker standby assist, and propels self in a wheelchair for functional household and community distances. I reviewed the history and the relevant portions of the chart, including currentorders, allied health and splunk consultant notes, labs/imaging and plan of care as [...] Coccyx - Decubitus Anaerobe isolated Exam <Cesilia HogueCASIMIRO greco - Last Filed: 06/11/21 14:10> Physical Exam [...] mg PO BID RF: 0 Follow Up: [facility] [Outside] (Follow up for unstagable ulcer to coccyx. [facility] needs to call for appt. ) Pino Dunbar MD [Active Staff] - (The [facility] to call to make follow-up and arrange transportation (per Monica)) Antoine Mead MD [Active Staff] - 07/13/21 10:00 am ([facility] office) Ace Abbott MD [Primary Care Provider] [...] Horace Palafox MD> 06/12/21 1052 [facility] Work Phone: Evaluation + Plan note No data available for this section [facility] evaluation noteNo assessment information available [facility] Work Phone: Evaluation note* Diagnosis Onset Date Resolution Status Atrial fibrillation, persistent acute Coronary artery disease acut e Hyperlipidemia acute Left hip pain acute Obesity acute Paroxysmal A-fib acute [facility] Work Phone: Evaluation note* Diagnosis Onset Date Resolution Status Atrial [...] total left hip arthroplasty acute [facility] Work Phone: Evaluation note* Diagnosis Onset Date Resolution Status Atrial fibrillation, persistent acute Hyperlipidemia acute Left hip pain acute Obesity acute Paroxysmal A-fib acute Coronary artery disease reproduction technician kate BPH (benign prostatic hyperplasia) acute Hyperlipidemia acute Paroxysmal A-fib acute Pressure injury of coccygeal region, stage 2 acute Pressure ulcer, stage 1 acut e Coronary artery disease reproduction technician kate Impaired mobility and activities of daily living chronic S/P total left hip arthroplasty chronic Chronic anticoagulation acut e Assistance needed for ambulation and movement chronic At high risk for skin breakdown chronic Coronary artery disease reproduction technician kate Impaired mobility and activities of daily living chronic Pressure ulcer of sacral region, unstageable chronic S/P total left hip arthroplasty chronic Sacral decubitus ulcer, stage III resolved [facility] Work Phone: Evaluation note* Diagnosis Onset Date Resolution Status Afib acute Arthritis acute Chronic anticoagulation acut e Clostridioides difficile infection acute Generalized muscle weakness acute Hyperlipidemia acute Myocardial infarct acute Postoperative pain acute S/P total right hip arthroplasty acute UTI (urinary tract infection), bacterial acute Coronary artery disease reproduction technician kate Impaired mobility and activities of daily living chronic S/P total left hip arthroplasty chronic [facility] Work Phone: Evaluation note* Diagnosis Onset Date Resolution Status Afib acute Arthritis acute Chronic anticoagulation acut e Clostridioides difficile infection acute Generalized muscle weakness acute Hyperlipidemia acute Myocardial infarct acute Postoperative pain acute S/P total right hip arthroplasty acute UTI (urinary tract infection), bacterial acute Coronary artery disease reproduction technician kate Impaired mobility and activities of daily living chronic S/P total left hip arthroplasty chronic Abdominal pain acute Bradycardia acute Cholelithiasis acute Chronic anticoagulation acut e Elevated liver enzymes acute Epigastric pain acute First degree heart block acu te Hiatal hernia acute Jaundice acute Prolonged QT interval acute Symptomatic bradycardia acut e Coronary artery disease reproduction technician kate [facility] Work Phone: Evaluation note* Diagnosis Persistent atrial fibrillation (CMS/HCC)- Primary Atrial fibrillation Coronary artery disease involving [place] coronary artery of [place] heart without angina pectoris Mixed hyperlipidemia Status post insertion of drug eluting coronary artery stent BMI 30.0-30.9,adult documented in this encounter [facility] Work Phone: Evaluation note* Diagnosis Benign prostatic hyperplasia, unspecified whether lower urinary tract symptoms present- Primary [facility] System[facility] Present illness Narrative* Patient is [...] months * 6. Discussed risk factor modification [facility] 600 DO Work Phone: History of Present [...] or symptoms and keep his follow-up appointment [facility] 250 DO Work Phone: [facility] Work Phone: InstructionsNot on filedocumented in this encounter [facility] [place] SystemInstructions* Attachments The following attachments cannot be sent through Care Everywhere. * Benign prostatic hyperplasia (enlarged prostate) (Portuguese) [facility] Author Rogers Lujan [facility] May 27, 2021 1:50pm Note Date/Time May 27, 2021 1:[address] [facility] [address] [place] [address] Hospitalist Progress Note Signed Patient: Angella Pradhan MR#: [id number] : 1945 Acct:[id number] Age/Sex: 75 / M Adm Date: 2 Loc: 4N Room: [id number] Type : ADM IN Attending Dr: Soham [...] 11:53 05/27/21 04:00 05/27/21 11:53 05/27/21 11:53 Narrative: Constitutional : Cooperative, alert and [...] 21:00 05/27/21 08:35 Aspirin 81 Mg Tablet.Dr GALINDO 05/22/22 20:59 [...] 17:00 05/27/21 08:33 Ferrous Sulfate 324 Mg Tablet. PO 05/22/22 [...] Oil 1 each 05/25/21 15:54 Mineral Oil (Wirt) 1 Each Enema CO ONCE PRN Constipation Mirtazapine 30 mg 05/22/21 [...] 05/22/21 09:00 05/27/21 08:32 Omeprazole 20 Mg Capsule.Dr PO 05/22/22 08:59 [...] sotalol/Dig/Eliquis Documented By: Rogers Sharma MD 2 1797 Signed By: <Electronically signed by Rogers Sharma MD> 05/27/21 1350 [facility] Work Phone: Progress note No data available for this section [facility] Chief Complaint ANGELLA PRADHAN is being seen [...] onste A-Fib s/p gavin Open Wound / [place] DJD Reason for Visit Atrial fibrillation, persistent [...] Referred To Contact Diagnoses Persistent atrial fibrillation ([facility]/HCC) Procedures ECG 12 Lead Pino Dunbar MD [address] [facility], [place] [address] [place], [place] [id number] Referral ID Status Reason Start Date Expiration Date V isits Requested Visits Authorized [id number] Pending Review 02/16/2023 02/16/2024 1 1 Specialty Diagnoses / Procedures Referred By Contac t Referred To Contact Cardiology Diagnoses Persistent atrial fibrillation (CMS/HCC) Coronary artery disease involving [place] coronary artery of [place] heart without angina pectoris Mixed hyperlipidemia Procedures Follow Up In Cardiology Pino Dunbar MD [address] [facility] [address], [address] [address] Pino Dunbar MD [address] [facility], [place] [phone] Referral ID Status Reason Start Date Expiration Date V isits Requested Visits Authorized [id number] Authorized 02/16/2023 02/16/2024 1 1 Additional Source Comments Care Teams (unrecognized sec tion and content) Team Status: Active Member Role Status Dates Ace Abbott MD Primary Care Provider Active Team Status: Inactive Member Role Status Dates Anna Navarro , Emergency Provider Active Ace Abbott MD Primary Care Provider Active Anshu Jennings MD Admit Provider, Attending Provi jameson Active Delvin Rodriguez MD Other Provider Active Brisa Morales RN Other Provider Active Yasmine Ruelas DO Other Provider Active Rubén Graham MD Other Provider Active Parminder Arredondo MD Other Provider Active Pino Dunbar MD Other Provider Active Harsh Wren MD Other Provider Active Yazmin Lozada , CLUB WAITER/WAITRESS Other Provider Active Milana Kilgore MD Other Provider Active Nat Arce MD Other Provider Active Ranjeet Lozano MD Other Provider Active Sherley León , GENERAL OPERATOR-BC Other Provider Active Erin Ordonez MD Other Provider Active Jigar Church MD Other Provider Active Team Status: Inactive Member Role Status Dates Ace Abbott MD Primary Care Provider Active Horace Palafox MD Admit Provider, Attending Provider A ctive Mariana Castro , LIANG Other Provider Active Nona Nguyen , LIANG Other Provider Active Elma Quinn , LIANG Other Provider Active Sandra Joseph , LIANG Other Provider Active Chanelle Payne , LIANG Other Provider Active Ruthie Wing , LIANG Other Provider Active Mary Carmen Dickinson MD Other Provider Active Heriberto De Anda MD Other Provider Active Philly Horn , CLUB WAITER/WAITRESS Other Provider Active Chioma Portillo , DO [...] MD Other Provider Active Farhana Callaway , GAS MAIN AND LINE FITTER-C Other Provider Active Thai Boyd MD Other Provider Active eSrge Gonsalez MD Other Provider Active Markus Bailey MD Other Provider Active Marjan Tyson , DO Other Provider Active David Rizzo , DO Other Provider Active Luiz Slaughter , DO Other Provider Active Marguerite Marie CLUB WAITER/WAITRESS Other Provider Active Constantino Salas , DO Other Provider Active Anshu Jennings MD Other Provider Active Bethanie Lozada CLUB WAITER/WAITRESS Other Provider Active Zunilda Harrell , LIANG Other Provider Active Team Status: Active Member Role Status Dates Anna Navarro , DO Emergency Provider Active Ace Abbott MD Primary Care Provider Active Anshu Jennings MD Admit Provider, Attending Provi jameson Active Team Status: Inactive Member Role Status Dates Ace Abbott MD Primary Care Provider Active Soham Cash Jr DO Attending Provider Active Team Status: Inactive Member Role Status Dates Ace Abbott MD Primary Care Provider Active Soham Cash Jr DO Admit Provider, Attending Provi jameson Active [...] RN Other Provider Active Sandra Joseph , RN Other Provider Active Chanelle Payne , LIANG Other Provider Active Ruthie Wing , LIANG Other Provider Active Bethanie Jerez , LIANG Other Provider Active Mary Carmen Dickinson MD Other Provider Active Heriberto De Anda MD Other Provider Active Philly Horn , CLUB WAITER/WAITRESS Other Provider Active Chioma Portillo DO Other Provider Active Mario Loredo MD Other Provider Active Dereck Burns , Other Provider Active Mikael Bush MD Other Provider Active Debo Argueta MD Other Provider Active Robbie Whitmore MD Other Provider Active Jackelyn Ambriz , ANP-BC Other Provider Active Pramod Paulson MD Other Provider Active Chuck Tarango MD Other Provider Active Darren Woods MD Other Provider Active Clover Banerjee MD Other Provider Active Maycol Cristina , Other Provider Active Sha Clayton MD Other Provider Active Esme Turpin MD Other Provider Active Lexa Neal MD Other Provider Active Julio Shoemaker MD Other Provider Active Farhana Callaway , GAS MAIN AND LINE FITTER-C Other Provider Active Thai Boyd MD Other Provider Active Serge Gonsalez MD Other Provider Active Aris Cantu MD Other Provider Active Ayah Gaitan MD Other Provider Active Antonieta Combs MD Other Provider Active Markus Bailey MD Other Provider Active Dalton Horner MD Other Provider Active Marjan Tyson , Other Provider Active Rogers Sharma MD Other Provider Active David Rizzo , DO Other Provider Active Luiz Slaughter , DO Other Provider Active Marguerite Marie APRN Other Provider Active Zunilda Harrell RN Other Provider Active Team Status: Inactive Member Role Status Dates Ace Abbott MD Primary Care Provider Active Crista Hopson APRN Active Delvin Rodriguez MD Attending Provider Active Manager Bar Relationship Specialty Start Date End Date Ace Abbott MD [address] [place] [phone] PCP - General 02/07/18 Manager Bar Relationship Specialty Start Date End Date Ace Abbott MD [address] [place] [address] PCP - General 12/26/17 Manager Bar Relationship Specialty Start Date End Date Ace Abbott MD [address] [place] [address] PCP - General 12/26/17 Goals (unrecognized section [...] DATE CREATED AUTHOR AUTHOR'S ORGANIZ ATION 05/29/2022 [facility] DATE CREATED AUTHOR AUTHOR'S ORGANIZ ATION 07/17/2022 [facility] DATE CREATED AUTHOR AUTHOR'S ORGANIZ ATION 09/07/2022 [facility] DATE CREATED AUTHOR AUTHOR'S ORGANIZ ATION 04/21/2023 [facility] DATE CREATED AUTHOR AUTHOR'S ORGANIZ ATION 04/30/2023 [facility] DATE CREATED AUTHOR AUTHOR'S ORGANIZ ATION 06/23/2023 [facility] DATE CREATED AUTHOR AUTHOR'S ORGANIZ ATION 10/06/2023 [facility] Reason for Visit (unrecogniz ed section and content) Reason Comments Follow-up 6 months Specialty Diagnoses / Procedures Referred By Contac t Referred To Contact Diagnoses Persistent atrial fibrillation (CMS/HCC) Procedures ECG 12 Lead Pino Dunbar MD [address] [facility] [address], [address] [address] Referral ID Status Reason Start Date Expiration Date V isits Requested Visits Authorized [id number] Pending Review 02/16/2023 02/16/2024 1 1 Reason [...] BE BASED ON THE PRIMARY CLINICAL RECORDS. [facility] [employer] provides no warranty or guarantee of the accuracy or completeness of information in this document.
[2023-10-12 13:50] LABS: Anion Gap 12.4; BUN Creatinine Ratio 16.7; Calcium 9.2 mg/dL (8.5-10.1); Carbon Dioxide 26.9 mmol/L (21.0-32.0); Chloride 103 mmol/L (98-107); Estimated GFR (African America >60 (>=60); Estimated GFR (Non-African Ame >60 (>=60); Glucose 108 mg/dL (74-106); Potassium 4.3 mmol/L (3.5-5.1); Sodium 138 mmol/L (136-145)
== END 2023-10-12 11:22 | disposition home or self-care (01) ==
LOC: LAB 11:24
PROVIDERS: PCP Family Medicine; Visit Provider Internal Medicine Cardiovascular Disease
DX: I48.19 Other persistent atrial fibrillation (principal)
CPT/HCPCS: 36415; 80048

== ENCOUNTER 2023-10-18 08:24 | Outpatient (OUT) | payer MEDICARE, SELFPAY ==
[2023-10-18 08:53] LABS: Basophils Absolute Auto 0.1 10^3/uL (0.0-0.1); Basophils Percent Auto 0.6 % (0.2-2.0); Eosinophils Absolute Auto 0.2 10^3/uL (0.0-0.7); Eosinophils Percent Auto 2.4 % (0.9-7.0); Hemoglobin 16.2 g/dL (14.0-18.0); Immature Granulocytes Abs Auto 0.05 10^3/uL (0.00-0.03); Immature Granulocytes Pct Auto 0.5 % (0.0-0.5); Lymphocytes Absolute Auto 2.3 10^3/uL (1.2-3.8); Lymphocytes Percent Auto 24.2 % (20.5-60.0); Mean Corpuscular HGB Conc 32.4 g/dL (29.9-35.2); Mean Corpuscular Hemoglobin 28.8 pg (25.9-34.0); Mean Corpuscular Volume 88.8 fL (80.0-94.0); Monocytes Absolute Auto 1.1 10^3/uL (0.3-0.8); Monocytes Percent Auto 11.3 % (1.7-12.0); Neutrophils Absolute Auto 5.8 10^3/uL (1.4-6.5); Platelet Count 240 10^3/uL (150-450); Red Blood Count 5.63 10^6/uL (4.70-6.10); Red Cell Distribution Width 12.9 % (11.0-15.0); White Blood Count 9.4 10^3/uL (4.0-11.0)
[2023-10-18 09:33] LABS: Estimated Average Glucose 123 mg/dL; Glycohemoglobin A1C 5.9 % (4.5-6.2)
[2023-10-18 09:36] LABS: Alanine Aminotransferase 23 U/L (16-63); Albumin Globulin Ratio 0.7; Alkaline Phosphatase 99 U/L (46-116); Anion Gap 11.3; Aspartate Amino Transferase 21 U/L (15-37); BUN Creatinine Ratio 22.5; Bilirubin Total 0.6 mg/dL (0.2-1.0); Carbon Dioxide 27.2 mmol/L (21.0-32.0); Chloride 101 mmol/L (98-107); Chol HDL Ratio 2.7; Cholesterol 105 mg/dL (<=200); Estimated GFR (African America >60 (>=60); Estimated GFR (Non-African Ame >60 (>=60); Free T3 1.91 pg/mL (2.18-3.98); Globulin 4.2 g/dL; Glucose 109 mg/dL (74-106); HDL Cholesterol 39 mg/dL (40-60); Potassium 4.5 mmol/L (3.5-5.1); Sodium 135 mmol/L (136-145); Thyroid Stimulating Hormone 2.357 uIU/mL (0.358-3.740); Total Protein 7.2 g/dL (6.4-8.2); Triglycerides 91 mg/dL (<=150); VLDL CHOLESTEROL 18.2 mg/dL
[2023-10-18 09:41] LABS: Prostate Specific Antigen Scrn 3.93 ng/mL (<=4.00)
== END 2023-10-18 08:25 | disposition home or self-care (01) ==
LOC: LAB 08:25
PROVIDERS: PCP Family Medicine; Visit Provider Family Medicine
DX: E78.5 Hyperlipidemia, unspecified (principal); I10 Essential (primary) hypertension; I25.10 Atherosclerotic heart disease of native coronary artery without angina pectoris; F32.9 Major depressive disorder, single episode, unspecified; N40.1 Benign prostatic hyperplasia with lower urinary tract symptoms; R53.83 Other fatigue; R73.09 Other abnormal glucose; M10.9 Gout, unspecified; E03.9 Hypothyroidism, unspecified; Z12.5 Encounter for screening for malignant neoplasm of prostate
CPT/HCPCS: 36415; 80053; 80061; 83036; 84436; 84443; 84481; 84550; 85025; G0103

== ENCOUNTER 2024-03-20 09:35 | Outpatient (OUT) | payer MEDICARE, SELFPAY ==
[2024-03-20 09:58] LABS: Basophils Absolute Auto 0.1 10^3/uL (0.0-0.1); Basophils Percent Auto 0.6 % (0.2-2.0); Eosinophils Absolute Auto 0.3 10^3/uL (0.0-0.7); Eosinophils Percent Auto 2.9 % (0.9-7.0); Hematocrit 48.4 % (42.0-54.0); Hemoglobin 15.8 g/dL (14.0-18.0); Immature Granulocytes Abs Auto 0.03 10^3/uL (0.00-0.03); Immature Granulocytes Pct Auto 0.3 % (0.0-0.5); Lymphocytes Absolute Auto 2.2 10^3/uL (1.2-3.8); Lymphocytes Percent Auto 24.2 % (20.5-60.0); Mean Corpuscular HGB Conc 32.6 g/dL (29.9-35.2); Mean Corpuscular Hemoglobin 29.5 pg (25.9-34.0); Mean Corpuscular Volume 90.5 fL (80.0-94.0); Mean Platelet Volume 9.3 fL (9.5-13.5); Monocytes Absolute Auto 1.1 10^3/uL (0.3-0.8); Monocytes Percent Auto 12.4 % (1.7-12.0); Neutrophils Absolute Auto 5.4 10^3/uL (1.4-6.5); Neutrophils Percent Auto 59.6 % (43.0-75.0); Platelet Count 220 10^3/uL (150-450); Red Blood Count 5.35 10^6/uL (4.70-6.10); Red Cell Distribution Width 12.9 % (11.0-15.0)
[2024-03-20 11:11] LABS: Anion Gap 12.7; BUN Creatinine Ratio 23.7; Chloride 103 mmol/L (98-107); Chol HDL Ratio 2.8; Cholesterol 111 mg/dL (<=200); Estimated GFR (African America >60 (>=60 mL/min/1.73m^2); Estimated GFR (Non-African Ame >60 (>=60 mL/min/1.73m^2); Glucose 105 mg/dL (74-106); HDL Cholesterol 40 mg/dL (40-60); LDL Cholesterol Calculated 47.6 mg/dL; Potassium 4.7 mmol/L (3.5-5.1); Sodium 138 mmol/L (136-145); Triglycerides 117 mg/dL (<=150); VLDL CHOLESTEROL 23.4 mg/dL
== END 2024-03-20 09:36 | disposition home or self-care (01) ==
LOC: LAB 09:38
PROVIDERS: PCP Family Medicine; Visit Provider Internal Medicine Cardiovascular Disease
DX: E78.2 Mixed hyperlipidemia (principal); I25.10 Atherosclerotic heart disease of native coronary artery without angina pectoris; I48.19 Other persistent atrial fibrillation
CPT/HCPCS: 36415; 80048; 80061; 85025